=== PATIENT | female | born 2005 | race Caucasian/White ===

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

== ENCOUNTER → 2023-01-14 | Outpatient (CLI) | payer MEDICAID, SELFPAY | END | disposition home or self-care (01) | DX: R00.2 Palpitations (principal) | CPT/HCPCS: 93225; 93226 ==

== ENCOUNTER 2023-01-20 16:20 | Emergency (ER) | payer MEDICAID, SELFPAY ==
[2023-01-20 16:21] VITALS: BP 137/88; PULSE 109; RESP 16; TEMP 36.7; O2SAT 100; BMI 46.7
--- NOTE | 2023-01-20 16:37 | EKG12_ITS ---
Test Reason : SYNCOPE Blood Pressure : / mmHG Vent. Rate : 079 BPM Atrial Rate : 079 BPM P-R Int : 158 ms QRS Dur : 088 ms QT Int : 352 ms P-R-T Axes : 056 069 059 degrees QTc Int : 403 ms Normal sinus rhythm with sinus arrhythmia Normal ECG Confirmed by LOPEZ MACHADO, KATHY ([id number]), state editor JESSICA SCOTT ([id number]) on 01/24/2023 8:42:32 AM Referred By: Confirmed By:JEFFREY MARROQUIN MD
--- NOTE | 2023-01-20 16:41 | EDS_ITS ---
HPI History of Present Illness Chief Complaint: Syncope Informant: patient Onset/Context/Timing Onset: Today Context: Sudden Onset Timing: Intermittent Quality: Lightheaded Location: Generalized Worsened by: Nothing Relieved by: Nothing Narrative Narrative: Patient presents with syncopal episode that occurred today. Patient states she was at work when this occurred. Patient states she was just walking when this occurred. Patient does not know how long she was out for. Patient states that when she woke up she called her coworker to help her up. Patient states she felt lightheaded prior to the syncopal episode. Patient also admits to some palpitations and heart racing. Patient states she was having some shortness of breath when this happened. Patient states she became nauseated but did not have any vomiting. Currently, patient admits to a headache. Patient states she did hit her head when she fell. Patient states she is feeling better at the present time. [facility] Medical History (Updated 01/20/23 @ 19:[address] Miguel Robles DO) Alcohol use Asthma Borderline personality disorder Bulimia nervosa, purging type Generalized anxiety disorder History of pain when walking Leg cramps Major depressive disorder, recurrent severe without psychotic features Marijuana use Migraine headache Non-smoker Restless legs Shortness of breath on exertion Visit for suture removal Wears glasses Home Medications propranolol 10 mg tablet 10 mg PO BID PRN Anxiety 07/09/22 [History Last Taken Unknown] desvenlafaxine succinate 25 mg tablet,extended release 24 hr (Pristiq) 50 mg PO QHS 10/25/22 [History Last Taken Unknown] oxycodone 5 mg tablet 5 - 10 mg (1 - 2 x 5 mg) PO Q6H PRN pain 5 days #30 tabs 11/01/22 [Rx Last Taken Unknown] Allergy/AdvReac Type Severity Reaction Status Date / Time bupropion [From Wellbutrin] Allergy Rash Verified 01/20/23 16:21 Family History Mother Hypertension Seizures Grandmother Breast cancer Cancer skin Surgical History (Updated 01/20/23 @ 17:[address] Miguel Robles DO) Hx of cholecystectomy Social History household members: none Smoking Status: Never smoker substance use type: marijuana ROS ROS ED Constitutional Constitutional ED: Denies chills or fever(s) Eyes Eyes: Denies blurry vision or change in vision ENT ENT ED: Denies rhinorrhea or sore throat Cardiovascular Cardiovascular: Reports palpitations and racing heartbeat; Denies chest pain Respiratory/Chest Respiratory/Chest: Reports dyspnea; Denies cough Gastrointestinal Gastrointestinal: Reports nausea; Denies vomiting Genitourinary Genitourinary ED: Denies dysuria or hematuria Musculoskeletal Musculoskeletal: Denies back pain or neck pain Integumentary Denies abscess or rash Neurologic Neurologic: Reports headache(s); Denies weakness Allergic/Immunologic Allergic/Immunologic ED: Denies mouth swelling or urticaria EXAM Physical Exam Const Vital Signs: 01/20/23 16:21 01/20/23 16:21 01/20/23 17:12 Temperature 98.0 F Temperature Source Temporal Pulse Rate 109 H Pulse Rate [Lying] 87 Pulse Rate [Sitting (for 1 minute prior to obtaining)] 93 Pulse Rate [Standing (for 1 minute prior to obtaining)] 93 Respiratory Rate 16 Respiratory Effort Normal Respiratory Pattern Normal Blood Pressure 137/88 H Blood Pressure [Lying] 130/73 H Blood Pressure [Sitting (for 1 minute prior to obtaining)] 141/75 H Blood Pressure [Standing (for 1 minute prior to obtaining)] 133/77 H Blood Pressure Mean 104 Blood Pressure Mean [Lying] 92 Blood Pressure Mean [Sitting (for 1 minute prior to obtaining)] 97 Blood Pressure Mean [Standing (for 1 minute prior to obtaining)] 95 Pulse Ox 100 Oxygen Delivery Method Room Air Positive well nourished, well developed and obese General Appearance ED: well developed and NAD Nutritional Appearance: obese HEENT Reports moist mucous membranes Neck supple and no JVD Resp normal respiratory effort and clear to auscultation bilaterally Cardio regular rate, regular rhythm and no murmurs GI normal to inspection, nondistended, normoactive bowel sounds and non-tender Palpation: soft Extremity normal to inspection General Extremety ED: Negative for edema or tenderness General Extremity: Negative for edema Neuro oriented x3, CN's II-XII intact bilaterally and no sensory deficits noted Sensorium / Orientation: alert Motor Exam: strength 5/5 throughout Psych mental status grossly normal Skin no rashes or lesions noted MDM MDM MDM Narrative Medical decision making narrative: Differential diagnosis includes cardiac dysrhythmia, cardiac ischemia, syncope, pneumonia, pneumothorax, ectopic , urinary tract infection, pulmonary embolism, electrolyte abnormality, anemia, and anxiety. EKG will be obtained to assess for cardiac dysrhythmia and cardiac ischemia. Chest x-ray will be obtained to assess for pneumonia and pneumothorax. CBC will be obtained to assess for leukocytosis and anemia. Basic metabolic profile will be obtained to assess for electrolyte abnormality and renal function. Urinalysis will be obtained to assess for urinary tract infection and hematuria. D-dimer will be obtained to assess for pulmonary embolism. Serum hCG will be obtained to assess for status. Lab Data Attestation: I reviewed the patient's lab results. Lab results narrative: CBC was reviewed and was within normal limits. Basic metabolic profile was reviewed and was within normal limits. Serum hCG was reviewed and was negative. Urinalysis was reviewed. There is no evidence of urinary tract infection or hematuria. Labs: Laboratory Results - last 24 hr 01/20/23 01/20/23 16:45 17:15 WBC 9.2 RBC 4.60 Hgb 13.1 Hct 39.1 MCV 85.0 MCH 28.5 MCHC 33.5 RDW Std Deviation 41.9 RDW Coeff of Dangelo 13.6 Plt Count 306 MPV 8.1 Immature Gran % (Auto) 0.200 Neut % (Auto) 63.0 Lymph % (Auto) 29.3 [place] % (Auto) 3.3 Eos % (Auto) 3.5 Baso % (Auto) 0.7 Absolute Neuts (auto) 5.8 Absolute Lymphs (auto) 2.70 Nucleated RBC % 0 D-Dimer Quant (PE/DVT) 0.39 Sodium 139 Potassium 3.7 Chloride 107 Carbon Dioxide 28.0 Anion Gap 4 L BUN 10 Creatinine 0.78 Estim Creat Clear Calc 95.96 Est GFR (MDRD) Af Amer 122 Est GFR (MDRD) Non-Af 101 BUN/Creatinine Ratio 12.9 Glucose 99 Calcium 9.1 Serum , Qual NEGATIVE Urine Color Yellow Urine Clarity Clear Urine pH 5.0 Ur Specific [place] 1.025 Urine Protein 30 H Urine Glucose (UA) Normal Urine Ketones 5 H Urine Occult Blood Negative Urine Nitrite Negative Urine Bilirubin 1 H Urine Urobilinogen 1 H Ur Leukocyte Esterase 25 H Urine RBC 0 SEEN Urine WBC 0-5 SEEN Ur Squamous Epith Cells 5-10 SEEN Urine Bacteria 0 SEEN Urine Mucus 0 SEEN Radiography Chest X-Ray - ED: 2 View, Read by ED Physician, Read by Radiologist and No Acute Disease Diagnostic Testing: Clinical Impression(s) from Imaging Studies Chest X-Ray 01/20/23 16:55 IMPRESSION: No radiographic evidence of acute cardiopulmonary disease. Electronically Signed: Nicolette Bauer MD at 17:22 EDT , PA and lateral chest x-ray was obtained. There are 2 views. On my independent interpretation, lung lizarraga are clear. There is normal cardiac silhouette. Bony thorax is normal. There is no acute process noted. Radiologist also interpreted the x-ray and agrees. EKG Initial EKG: Attestation: I personally reviewed and interpreted this EKG as follows: Interpretation: Sinus Rhythm (79) and No Acute Injury Pattern Comments: EKG was obtained. On my independent interpretation, it showed a normal sinus rhythm with a rate of 79. VT interval, QRS interval, and QTc intervals were all normal. [place] was normal. There are no acute ST or T wave changes. Prior EKG tracings: available for review Prior: Unchanged (11/01/2022) Treatment and Re-Evaluation :: Orthostatic vital signs were obtained and were within normal limits. Patient was feeling better on reevaluation. Patient was advised of her findings. Patient was instructed to follow-up with her primary care physician in 5 to 7 days. Patient understood and was agreeable with the plan. All questions were answered. Discharge Plan Triage Chief Complaint: Syncope ED Provider: Miguel Robles Dx/Rx/DC Orders Clinical Impression: Syncope, Anxiety Instructions: ED Fainting, Uncertain Cause Prescriptions: No Action propranolol 10 mg tablet 10 mg PO BID PRN (Reason: Anxiety) oxycodone 5 mg tablet 5 - 10 mg PO Q6H PRN (Reason: pain) 5 Days Qty: 30 0RF desvenlafaxine succinate [Pristiq] 25 mg Tablet Extended Release 24 Hr 50 mg PO QHS Primary Care Provider: [facility] Rukhsana Lopez [facility] - 5-7 Days Disposition Disposition: Home, Self Care
[2023-01-20 16:52] LABS: Absolute Neutrophil Count 5.8 X10^3/uL (2.0-7.7); Basophil# 0.06 X10^3/uL; Basophil% 0.7 % (0-1); Eosinophil# 0.32 X10^3/uL; Eosinophils% 3.5 % (0-5); Hematocrit 39.1 % (37-47); Hemoglobin 13.1 g/dL (12.0-15.0); Lymphocyte % 29.3 % (19-41); Mean Corp Hgb Conc 33.5 g/dL (32-36); Mean Corpuscular Hgb 28.5 pg (27.0-32.0); Mean Platelet Vol. 8.1 fl (6.2-12.0); Monocyte% 3.3 % (0-10); NRBC Flagged by Analyzer 0 % (0-5); Neutrophil # 5.81 X10^3/uL (2.7-7.7); Platelet Count 306 K/mm3 (150-450); RBC Distribution Width CV 13.6 % (11.6-14.6); RBC Distribution Width SD 41.9 fl (35.1-43.9); White Blood Count 9.2 K/mm3 (4.4-11.0)
--- NOTE | 2023-01-20 16:55 | RAD_ITS ---
INDICATION: Syncope EXAMINATION/TECHNIQUE: X-RAY - XR Chest 2 Views COMPARISON: 05/07/2022. FINDINGS: LINES/DEVICES: None. LUNGS: No consolidation, edema or effusion. No pneumothorax. MEDIASTINUM AND CARDIOVASCULAR STRUCTURES: Cardiac silhouette not enlarged. Central airways and mediastinal contour are unremarkable. BONES AND SOFT TISSUES: Unremarkable. RAD/Chest PA and Lateral IMPRESSION: No radiographic evidence of acute cardiopulmonary disease. Electronically Signed: Nicolette Bauer MD at 17:22 EDT Reading Location ID and State: [id number] / Tel , Service support ,
[2023-01-20 17:02] LABS: D-Dimer Quantitative (DVT/PE) 0.39 FEU/ug/m (0.27-0.49)
[2023-01-20 17:12] VITALS: BP 130/73; BP 133/77; BP 141/75; PULSE 87; PULSE 93
[2023-01-20 17:21] LABS: Anion Gap 4 (5-15); BUN 10 mg/dL (7-18); BUN/Creat Ratio 12.9 RATIO (10-20); Calcium,Total 9.1 mg/dL (8.5-10.1); Chloride 107 mmol/L (98-107); Creatinine, Serum 0.78 mg/dL (0.55-1.02); EST Glomerular Filtration Rate 101 mL/min (>60); Est Glom Filt Rate - Afr Amer 122 mL/min (>60); Estimated Creatinine Clearance 95.96 ml/min; Glucose 99 mg/dL (74-106); Potassium 3.7 mmol/L (3.5-5.1); Sodium Level 139 mmol/L (136-145)
[2023-01-20 17:22] LABS: Internal QC Validated? YES +Cl - CLEAR BKGD; Pregnancy, Serum, hCG Quali. NEGATIVE Negative
[2023-01-20 17:52] LABS: Bacteria 0 SEEN /hpf (None Seen); Mucous, Urine 0 SEEN /hpf (<or=2+); Red Blood Cells-Urine 0 SEEN /hpf (0-5)
[2023-01-20 17:57] LABS: Color, Urine Yellow (Yellow); Glucose, Dipstick Normal (Normal); Ketone-Dipstick 5 mg/dl (Negative); Leukocyte Esterase-Dipstick 25 /ul (Negative); Nitrite-Dipstick Negative (Negative); Occult Blood-Urine Negative /ul (Negative); Protein-Dipstick 30 mg/dl (Negative); Specific Gravity, Urine 1.025 (1.002-1.030); Urine Clarity Clear (Clear); Urine Urobilinogen 1 mg/dl (Normal)
[2023-01-20 18:01] LABS: Urine Bilirubin Dipstick 1 mg/dL (Negative)
[2023-01-20 18:09] LABS: Squamous Epithelial Cells - UA 5-10 SEEN /hpf (5-10); White Blood Cells 0-5 SEEN /hpf (0-5)
[2023-01-20 19:59] VITALS: BP 133/77; PULSE 99
== END 2023-01-20 20:00 | disposition home or self-care (01) ==
PROVIDERS: Emergency Provider Emergency Medicine; Visit Provider Emergency Medicine
DX: R55 Syncope and collapse (principal); F41.9 Anxiety disorder, unspecified; Z79.899 Other long term (current) drug therapy
CPT/HCPCS: 71046; 80048; 81001; 84703; 85025; 85379; 93005; 99285; A4216

== ENCOUNTER → 2023-01-23 | Outpatient (CLI) | payer MEDICAID, SELFPAY ==
[2023-01-23 09:38] LABS: Anion Gap 3 (5-15); BUN 8 mg/dL (7-18); Calcium,Total 8.6 mg/dL (8.5-10.1); Chloride 111 mmol/L (98-107); Creatinine, Serum 0.73 mg/dL (0.55-1.02); EST Glomerular Filtration Rate 109 mL/min (>60); Est Glom Filt Rate - Afr Amer 132 mL/min (>60); Glucose 89 mg/dL (74-106); Magnesium 2.1 mg/dL (1.6-2.6); Sodium Level 142 mmol/L (136-145); Thyroid Stim Hormone (TSH) 1.94 uIU/mL (0.358-3.74)
== END | disposition home or self-care (01) ==
PROVIDERS: Referring Provider Nurse Practitioner Family; Visit Provider Nurse Practitioner Family
DX: I48.0 Paroxysmal atrial fibrillation (principal)
CPT/HCPCS: 36415; 80048; 83735; 84443

== ENCOUNTER 2023-01-26 17:46 | Emergency (ER) | payer MEDICAID, SELFPAY ==
[2023-01-26 17:47] VITALS: BP 158/95; PULSE 115; RESP 22; TEMP 36.2; O2SAT 98; BMI 47.3
[2023-01-26 17:54] VITALS: BP 140/77; PULSE 104; RESP 17; O2SAT 97
--- NOTE | 2023-01-26 18:03 | EKG12_ITS ---
Test Reason : CP Blood Pressure : / mmHG Vent. Rate : 090 BPM Atrial Rate : 090 BPM P-R Int : 164 ms QRS Dur : 090 ms QT Int : 342 ms P-R-T Axes : 040 057 048 degrees QTc Int : 418 ms Normal sinus rhythm with sinus arrhythmia Normal ECG Confirmed by IRENE MACHADO, GIRMA ([id number]), publication editor JESSICA SCOTT ([id number]) on 01/28/2023 1:23:32 PM Referred By: Confirmed By:GIRMA BONILLA MD
--- NOTE | 2023-01-26 18:05 | EDS_ITS ---
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 The tightness went away and now her chest just feels weird. She states over the last 2 months she has had been having issues with palpitations and tachycardia. She was seen at the [facility] and had a 48-hour Holter monitor that showed episodes of tachycardia and brief episode of A-fib. 3 days ago she started aspirin 81 mg and Toprol which she takes every morning. She is scheduled to see a welding machine operator arc in February. She denies shortness of breath or cough or upper respiratory symptoms. No fever or chills. PFSH <MONICA Jacinto - Last Filed: 01/26/23 18:56> [facility] Medical History (Updated 01/26/23 @ 18:[address] Erin Russ DO) Alcohol use Asthma Borderline personality disorder Bulimia nervosa, purging type Generalized anxiety disorder History of pain when walking Leg cramps Major depressive disorder, recurrent severe without psychotic features Marijuana use Migraine headache Non-smoker Restless legs Shortness of breath on exertion Visit for suture removal Wears glasses Home Medications propranolol 10 mg tablet 10 mg PO BID PRN Anxiety 07/09/22 [History Last Taken Unknown] desvenlafaxine succinate 25 mg tablet,extended release 24 hr (Pristiq) 50 mg PO QHS 10/25/22 [History Last Taken Unknown] oxycodone 5 mg tablet 5 - 10 mg (1 - 2 x 5 mg) PO Q6H PRN pain 5 days #30 tabs 11/01/22 [Rx Last Taken Unknown] Allergy/AdvReac Type Severity Reaction Status Date / Time bupropion [From Wellbutrin] Allergy Rash Verified 01/20/23 16:21 Family History Mother Hypertension Seizures Grandmother Breast cancer Cancer skin Surgical History Hx of cholecystectomy Social History household members: none Smoking Status: Never smoker substance use type: marijuana ROS <MONICA Jacinto - Last Filed: 01/26/23 18:56> ROS ED ROS Narrative Constitutional: Negative for fever, chills, malaise. CVS: Positive for chest pain. Negative for palpitations, syncope. Respiratory: Negative for shortness of breath, cough, orthopnea. GI: Positive for nausea, vomiting. Negative for abdominal pain. EXAM <MONICA Jacinto - Last Filed: 01/26/23 18:56> Physical Exam Narrative Exam Narrative: CONST: Patient sitting in no acute distress. EYES: Normal inspection. NECK: Normal inspection. RESP: No respiratory distress, CTAB. CVS: Regular rate and rhythm around 95-100, no murmur, no gallop. ABD: Soft and nontender, no guarding or rebound, nondistended, no hepatosplenomegaly. SKIN: Color normal, no rash, warm, dry, intact. EXTREMITIES: Normal appearance, no pedal edema. NEURO: Oriented x4. PSYCH: Normal affect. Const Vital Signs: 01/26/23 17:47 01/26/23 17:54 01/26/23 19:00 Temperature 97.2 F L Temperature Source Temporal Pulse Rate 115 H 104 H 86 Respiratory Rate 22 H 17 16 Blood Pressure 158/95 H 140/77 H Blood Pressure Mean 116 98 Pulse Ox 98 97 95 Oxygen Delivery Method Room Air Room Air <Dr. Erin Russ, DO - Last Filed: 01/26/23 22:14> Physical Exam Const Vital Signs: 01/26/23 17:47 01/26/23 17:54 01/26/23 19:00 Temperature 97.2 F L Temperature Source Temporal Pulse Rate 115 H 104 H 86 Respiratory Rate 22 H 17 16 Blood Pressure 158/95 H 140/77 H Blood Pressure Mean 116 98 Pulse Ox 98 97 95 Oxygen Delivery Method Room Air Room Air MDM <MONICA Jacinto - Last Filed: 01/26/23 18:56> MDM MDM Narrative Medical decision making narrative: Patient had brief episode of chest tightness and vomited once. She feels anxious. She appears well and nontoxic. Heart rate ranges from 95-115 with otherwise normal vital signs. She does look anxious and slightly shaky on exam with history of anxiety so I ordered Ativan. Her heart sounds regular with no murmurs. Lungs clear. Overall exam benign. She had recent significant work-up on 02/20 with normal CBC, BMP, D-dimer and negative test so I do not think these need repeated. EKG here shows normal sinus rhythm at 90 bpm with normal intervals and no ischemic changes. TSH and troponin are WNL and CXR shows no acute process. I ordered Ativan and I think she has ACS, PE, or any acute life-threatening process. I recommended follow-up with her PCP and the welding machine operator arc as scheduled in February. Return for new or worsening symptoms. Differential: Anxiety, myocarditis, palpitations/arrhythmia among others External records reviewed: Blood work from ED visit on 01/20/2023 shows normal CBC, BMP, D-dimer, and negative test. I have personally performed a face to face assessment of the patient and have reviewed the SILVIO Note. I performed a substantive portion of the visit including all aspects of the following. My mares findings include: History is [patient presents with left-sided chest pain that started earlier today. She was at work and stood up and felt pressure in her chest that can radiate across her left upper chest into her shoulder. She did have nausea and vomited once. She feels anxious. She has been seen here recently for complaint of syncope and had significant work-up on February 20 including a D-dimer that was normal and basic lab work. No significant family history of heart disease. Patient also recently wore Holter monitor and it was noted that she had an episode of A-fib and some tachycardia. Patient was started on toprol. She denies recent travel and she states that she had her gallbladder out a few months ago.] Exam is [HEENT-PERRLA, EOMI. Cranial nerves II through XII grossly intact. TMs clear. Mucous membranes moist. No adenopathy. Cardiovascular-regular rate and rhythm without murmur or ectopy Lungs-clear to auscultation, chest wall stable without crepitus or subcu emphysema Abdomen-normoactive bowel sounds, soft, nontender, no rebound or rigidity, no peritoneal signs. Extremities-intact ?4, normal range of motion, normal pulses, atraumatic] Medical Decison Making [patient presents with chest pain that started today. Very low risk factors for coronary artery disease given her age and no significant risk factors otherwise. EKG obtained showed sinus rhythm with no acute ST segment changes. Troponin was normal. She had a D-dimer recently therefore this was not repeated as I do not feel her chest pain is related to PE. Suspect more likely this is anxiety. She did receive a milligram of Ativan in the department. Chest x-ray 1 view was unremarkable.] Other additions or changes: [None] Lab Data Attestation: I reviewed the patient's lab results. Labs: Laboratory Results - last 24 hr 01/26/23 18:05 Troponin I High Sens < 3 L TSH 1.40 Radiography Diagnostic Testing: Clinical Impression(s) from Imaging Studies Chest X-Ray 01/26/23 18:15 IMPRESSION: Normal x-ray examination of the chest. Electronically Signed: Trav Severino MD at 18:29 EDT , ED attending interpretation of 2-view chest x-ray shows normal heart size, no acute infiltrate, edema, or effusion. EKG Initial EKG: Attestation: I personally reviewed and interpreted this EKG as follows: Interpretation: Sinus Rhythm and No Acute Injury Pattern Comments: ED attending interpretation is normal sinus rhythm with sinus arrhythmia at 90 bpm, no ectopy or ischemic changes, normal intervals <Dr. Erin Russ, DO - Last Filed: 01/26/23 22:14> [facility] Narrative Medical decision making narrative: Patient had brief episode of chest tightness and vomited once. She feels anxious. She appears well and nontoxic. Heart rate ranges from 95-115 with otherwise normal vital signs. She does look anxious and slightly shaky on exam with history of anxiety so I ordered Ativan. Her heart sounds regular with no murmurs. Lungs clear. Overall exam benign. She had recent significant work-up on 02/20 with normal CBC, BMP, D-dimer and negative test so I do not think these need repeated. EKG here shows normal sinus rhythm at 90 bpm with normal intervals and no ischemic changes. TSH is WNL. Since her troponin has never been checked this was ordered and is Differential: Anxiety, myocarditis, palpitations/arrhythmia among others External records reviewed: Blood work from ED visit on 01/20/2023 shows normal CBC, BMP, D-dimer, and negative test. I have personally performed a face to face assessment of the patient and have reviewed the SILVIO Note. I performed a substantive portion of the visit including all aspects of the following. My mares findings include: History is [patient presents with left-sided chest pain that started earlier today. She was at work and stood up and felt pressure in her chest that can radiate across her left upper chest into her shoulder. She did have nausea and vomited once. She feels anxious. She has been seen here recently for complaint of syncope and had significant work-up on February 20 including a D-dimer that was normal and basic lab work. No significant family history of heart disease. Patient also recently wore Holter monitor and it was noted that she had an episode of A-fib and some tachycardia. Patient was started on toprol. She denies recent travel and she states that she had her gallbladder out a few months ago.] Exam is [HEENT-PERRLA, EOMI. Cranial nerves II through XII grossly intact. TMs clear. Mucous membranes moist. No adenopathy. Cardiovascular-regular rate and rhythm without murmur or ectopy Lungs-clear to auscultation, chest wall stable without crepitus or subcu emphysema Abdomen-normoactive bowel sounds, soft, nontender, no rebound or rigidity, no peritoneal signs. Extremities-intact ?4, normal range of motion, normal pulses, atraumatic] Medical Decison Making [patient presents with chest pain that started today. Very low risk factors for coronary artery disease given her age and no significant risk factors otherwise. EKG obtained showed sinus rhythm with no acute ST segment changes. Troponin was normal. She had a D-dimer recently therefore this was not repeated as I do not feel her chest pain is related to PE. Suspect more likely this is anxiety. She did receive a milligram of Ativan in the department. Chest x-ray 1 view was unremarkable.] Other additions or changes: [None] Lab Data Labs: Laboratory Results - last 24 hr 01/26/23 18:05 Troponin I High Sens < 3 L TSH 1.40 Radiography Diagnostic Testing: Clinical Impression(s) from Imaging Studies Chest X-Ray 01/26/23 18:15 IMPRESSION: Normal x-ray examination of the chest. Electronically Signed: Trav Severino MD at 18:29 EDT , Discharge Plan Triage Chief Complaint: Chest Pain ED Midlevel Provider: Karen Mayes ED Provider: Erin Russ Dx/Rx/DC Orders Clinical Impression: Anxiety, Atypical chest pain, Chest pain Instructions: ED Anxiety Reaction, ED Chest Pain, Noncardiac, ED Chest Pain, Uncertain Cause Prescriptions: No Action propranolol 10 mg tablet 10 mg PO BID PRN (Reason: Anxiety) oxycodone 5 mg tablet 5 - 10 mg PO Q6H PRN (Reason: pain) 5 Days Qty: 30 0RF desvenlafaxine succinate [Pristiq] 25 mg Tablet Extended Release 24 Hr 50 mg PO QHS Primary Care Provider: [facility] Rukhsana Lopez Referrals: [facility] Rukhsana Lopez [Primary Care Provider] - Activity Restrictions/Additional Instructions: Your thyroid levels and heart enzymes today looked normal. Your heart is in a normal sinus rhythm here. I recommend following up with the primary care clinic and welding machine operator arc. Disposition Disposition: Home, Self Care Discharge Date/Time: 01/26/23 19:01
[2023-01-26] MEDS: LORazepam 0.5 MG Tablet PO (18:11)
--- NOTE | 2023-01-26 18:15 | RAD_ITS ---
STUDY: X-RAY CHEST REASON FOR EXAM: Female, 18 years old. chest pain TECHNIQUE: PA and lateral views of the chest. COMPARISON: 01/20/2023 FINDINGS: The lungs are clear and expanded. There is no demonstrated pleural abnormality. Normal size heart. Normal mediastinum and kimmie. Normal visualized pulmonary arteries. Normal visualized aortic arch and descending thoracic aorta. Normal visualized thoracic spine. Normal visualized ribs, clavicles, and shoulders. There is no demonstrated abnormality of the visualized soft tissue structures of the upper abdomen. RAD/Chest PA and Lateral IMPRESSION: Normal x-ray examination of the chest. Electronically Signed: Trav Severino MD at 18:29 EDT ,
[2023-01-26 18:49] LABS: Troponin-I HS < 3 pg/mL (3.0-54.0)
[2023-01-26 19:00] VITALS: PULSE 86; RESP 16; O2SAT 95
== END 2023-01-26 19:01 | disposition home or self-care (01) ==
PROVIDERS: Physician Assistant; Emergency Provider Emergency Medicine; Visit Provider Emergency Medicine
DX: F41.1 Generalized anxiety disorder (principal); R07.89 Other chest pain; Z79.899 Other long term (current) drug therapy
CPT/HCPCS: 71046; 84443; 84484; 93005; 99283; A4216

== ENCOUNTER → 2023-02-01 | Outpatient (CLI) | payer MEDICAID, SELFPAY ==
--- NOTE | 2023-02-01 09:38 | ECHOD_ITS ---
Reason For Study: Afib Procedure This was a 2D Doppler, Color Flow transthoracic echocardiogram. Exam performed in department. Left Ventricle Normal LV size. The estimated ejection fraction is 60 %. No evidence for diastolic dysfunction. No regional wall motion abnormalities noted. Right Ventricle Normal RV size. Normal systolic function. Atria Normal left atrium. Normal right atrium. No doppler evidence for ASD. Mitral Valve There is no mitral valve stenosis. No mitral valve insufficiency. Tricuspid Valve There is no tricuspid stenosis. Trivial tricuspid valve insufficiency. Unable to estimate RV systolic pressure due to insufficient tricuspid regurgitant envelope. Aortic Valve Trisinus/trileaflet aortic valve. There is no aortic stenosis. No aortic valve insufficiency. Pulmonic Valve There is no pulmonic valvular stenosis. No pulmonic valve insufficiency. Great Vessels Normal aortic root. Pericardium/Pleural No pericardial effusion. MMode/2D Measurements & Calculations LVIDd: 4.4 cm IVSd: 0.70 cm Ao root diam: 2.8 cm LVIDs: 2.7 cm LVPWd: 0.80 cm LA dimension: 3.8 cm FS: 38.2 % LAV(MOD-bp): 47.2 ml LVAd ap4: 30.1 cm2 SV(MOD-sp4): 57.1 ml LAV(MOD-bp) Indexed: 21.8 ml/m2 LVLd ap4: 8.2 cm LAV(MOD-sp2): 47.9 ml EDV(MOD-sp4): 89.4 ml LAV(MOD-sp4): 46.4 ml EDV(sp4-el): 93.8 ml LVAs ap4: 15.4 cm2 LVLs ap4: 6.1 cm ESV(MOD-sp4): 32.3 ml ESV(sp4-el): 32.8 ml EF(MOD-sp4): 63.9 % EF(sp4-el): 65.1 % SV(sp4-el): 61.1 ml LA A4 area: 16.4 cm2 RA A4 area: 13.7 cm2 Time Measurements MV dec time: 0.20 sec Doppler Measurements & Calculations MV E max damir: 121.3 cm/sec Lat Peak E' Damir: 23.9 cm/sec Med Peak E' Damir: 16.3 cm/sec MV A max damir: 75.5 cm/sec E/E' lat: 5.1 E/E' med: 7.4 MV E/A: 1.6 MV V2 max: 121.2 cm/sec MV P1/2t max damir: 121.8 cm/sec Ao V2 max: 138.4 cm/sec MV max P.9 mmHg MV P1/2t: 57.1 msec Ao max P.7 mmHg MV V2 mean: 69.6 cm/sec Ao V2 mean: 99.6 cm/sec MV mean P.3 mmHg MV dec slope: 624.9 cm/sec2 Ao mean P.4 mmHg MV V2 VTI: 26.1 cm MVA(P1/2t): 3.9 cm2 Ao V2 VTI: 29.5 cm AV (velocity ratio): 0.84 LV V1 max: 125.2 cm/sec PA V2 max: 129.2 cm/sec TR max damir: 172.6 cm/sec LV V1 max P.3 mmHg PA V2 mean: 92.1 cm/sec TR max P.9 mmHg LV V1 mean P.6 mmHg LV V1 mean: 90.7 cm/sec LV V1 VTI: 24.7 cm ECHO/Echo Complete Interpretation Summary The estimated ejection fraction is 60 %. No evidence for diastolic dysfunction. Ordering Physician: Nikki Grey Referring Physician: Nikki Grey Performed By: Arvin Dobbins RCS
== END | disposition home or self-care (01) ==
LOC: CVS 09:34
PROVIDERS: Referring Provider Nurse Practitioner Family; Visit Provider Nurse Practitioner Family
DX: I48.0 Paroxysmal atrial fibrillation (principal)
CPT/HCPCS: 93306

== ENCOUNTER 2023-02-13 18:01 | Emergency (ER) | payer MEDICAID, SELFPAY ==
[2023-02-13 18:10] VITALS: BP 146/84; PULSE 71; RESP 18; TEMP 36.6; O2SAT 98; BMI 47.5
--- NOTE | 2023-02-13 19:48 | CM.ED ---
Social Work SW met with patient and introduced self and role as [facility] SW. Patient seated on hospital bed and agreeable to speak with SW. SW engaged patient in conversation regarding recent events as well as connection to community resources. Patient reviewed recent concerns regarding her heart and feeling anxious. Patient reports no current engagement in counseling but [facility]. SW provided emotional support and reviewed [facility] resource list, community counseling agencies as well as coping skills for anxiety. Patient was receptive towards information; SW remains available if needs arise. Cyndy Cornejo DESIGN ANALYST, YINA
[2023-02-13 19:49] VITALS: BP 119/84; BP 120/81; BP 133/90; PULSE 62; PULSE 76; O2SAT 99
--- NOTE | 2023-02-13 20:08 | RAD_ITS ---
INDICATION: chest pain EXAMINATION/TECHNIQUE: X-RAY - XR Chest 1 View COMPARISON: January 26, 2023. FINDINGS: LINES/DEVICES: None. LUNGS: No consolidation, edema or effusion. No pneumothorax. MEDIASTINUM AND CARDIOVASCULAR STRUCTURES: Cardiac silhouette not enlarged. BONES AND SOFT TISSUES: Unremarkable. RAD/Chest 1 View (Portable) IMPRESSION: No radiographic evidence of acute cardiopulmonary disease. Electronically Signed: Aston Milton MD at 20:41 EDT ,
[2023-02-13 20:10] VITALS: BP 120/81; PULSE 62; RESP 15; O2SAT 98
[2023-02-13 20:14] LABS: Absolute Lymphocyte Count 3.67 X10^3/uL (0.83-4.51); Absolute Neutrophil Count 6.9 X10^3/uL (2.0-7.7); Basophil# 0.07 X10^3/uL; Basophil% 0.6 % (0-1); Eosinophil# 0.36 X10^3/uL; Eosinophils% 3.2 % (0-5); Hematocrit 40.1 % (37-47); Lymphocyte # 3.67 X10^3/ul (0.83-4.51); Lymphocyte % 32.2 % (19-41); Mean Corp Hgb Conc 32.4 g/dL (32-36); Mean Corpuscular Volume 86.2 fL (81-99); Mean Platelet Vol. 8.9 fl (6.2-12.0); Monocyte# 0.35 X10^3/uL; Monocyte% 3.1 % (0-10); NRBC Flagged by Analyzer 0 % (0-5); Neutrophil # 6.88 X10^3/uL (2.7-7.7); Neutrophil % 60.3 % (47-70); Platelet Count 339 K/mm3 (150-450); RBC Distribution Width CV 13.6 % (11.6-14.6); RBC Distribution Width SD 42.8 fl (35.1-43.9); Red Blood Count 4.65 M/mm3 (4.2-5.4); White Blood Count 11.4 K/mm3 (4.4-11.0)
[2023-02-13 20:37] LABS: Anion Gap 4 (5-15); BUN 15 mg/dL (7-18); Calcium,Total 9.1 mg/dL (8.5-10.1); Chloride 108 mmol/L (98-107); Creatinine, Serum 0.68 mg/dL (0.55-1.02); EST Glomerular Filtration Rate 117 mL/min (>60); Est Glom Filt Rate - Afr Amer 141 mL/min (>60); Estimated Creatinine Clearance 109.17 ml/min; Glucose 112 mg/dL (74-106); Potassium 3.7 mmol/L (3.5-5.1); Sodium Level 142 mmol/L (136-145); Troponin-I HS < 3 pg/mL (3.0-54.0)
[2023-02-13 21:17] VITALS: BP 125/92; PULSE 62; RESP 15; O2SAT 98
--- NOTE | 2023-02-13 22:11 | ED.VIS.CHEST ---
HPI History of Present Illness Chief Complaint: Anxiety Narrative Narrative: 18-year-old female presenting with chest pains. She states has had these on and off. She states she recently wore a Holter monitor about 3 weeks ago and was told she had A-fib. She is not anticoagulated. She is on metoprolol. She does admit to missing doses from time to time. She states she was at work today and felt her heart racing. Patient called EMS and was brought in for evaluation. Patient does have a history of anxiety as well. He does not think it is anxiety. She reports to me that she has a couple of episodes of syncope over the last month as well. No fevers, chills. Patient is short of breath. No nausea or vomiting. PFSH PFSH Medical History Alcohol use Asthma Borderline personality disorder Bulimia nervosa, purging type Generalized anxiety disorder History of pain when walking Leg cramps Major depressive disorder, recurrent severe without psychotic features Marijuana use Migraine headache Non-smoker Restless legs Shortness of breath on exertion Visit for suture removal Wears glasses Home Medications propranolol 10 mg tablet 10 mg PO BID PRN Anxiety 07/09/22 [History Last Taken Unknown] desvenlafaxine succinate 25 mg tablet,extended release 24 hr (Pristiq) 50 mg PO QHS 10/25/22 [History Last Taken Unknown] oxycodone 5 mg tablet 5 - 10 mg (1 - 2 x 5 mg) PO Q6H PRN pain 5 days #30 tabs 11/01/22 [Rx Last Taken Unknown] Allergy/AdvReac Type Severity Reaction Status Date / Time bupropion [From Wellbutrin] Allergy Rash Verified 02/13/23 18:12 Family History Mother Hypertension Seizures Grandmother Breast cancer Cancer skin Surgical History Hx of cholecystectomy Social History household members: none Smoking Status: Never smoker substance use type: marijuana ROS ROS ED Review of Systems ROS Unobtainable: Denies due to encephalopathy Constitutional Constitutional ED: Denies chills or fever(s) Eyes Eyes: Denies blurry vision or change in vision ENT ENT ED: Denies rhinorrhea Cardiovascular Cardiovascular: Reports chest pain, palpitations and racing heartbeat Respiratory/Chest Respiratory/Chest: Denies cough or dyspnea Gastrointestinal Gastrointestinal: Denies abdominal pain, nausea or vomiting Genitourinary Genitourinary ED: Denies dysuria Musculoskeletal Musculoskeletal: Denies arthralgias or myalgias Integumentary Denies abscess Neurologic Neurologic: Denies headache(s) or paresthesias Psychiatric Psychiatric: Reports anxiety EXAM Physical Exam Const Vital Signs: 02/13/23 18:10 02/13/23 19:49 02/13/23 19:49 Temperature 97.8 F Temperature Source Temporal Pulse Rate 71 Pulse Rate [Lying] 76 Pulse Rate [Sitting (for 1 minute prior to obtaining)] 62 Pulse Rate [Standing (for 1 minute prior to obtaining)] 62 Respiratory Rate 18 Blood Pressure 146/84 H Blood Pressure [Lying] 119/84 H Blood Pressure [Sitting (for 1 minute prior to obtaining)] 120/81 H Blood Pressure [Standing (for 1 minute prior to obtaining)] 133/90 H Blood Pressure Mean 104 Blood Pressure Mean [Lying] 95 Blood Pressure Mean [Sitting (for 1 minute prior to obtaining)] 94 Blood Pressure Mean [Standing (for 1 minute prior to obtaining)] 104 Pulse Ox 98 99 Oxygen Delivery Method Room Air Room Air 02/13/23 20:10 02/13/23 21:17 Temperature Temperature Source Pulse Rate 62 62 Pulse Rate [Lying] Pulse Rate [Sitting (for 1 minute prior to obtaining)] Pulse Rate [Standing (for 1 minute prior to obtaining)] Respiratory Rate 15 15 Blood Pressure 120/81 H 125/92 H Blood Pressure [Lying] Blood Pressure [Sitting (for 1 minute prior to obtaining)] Blood Pressure [Standing (for 1 minute prior to obtaining)] Blood Pressure Mean 94 Blood Pressure Mean [Lying] Blood Pressure Mean [Sitting (for 1 minute prior to obtaining)] Blood Pressure Mean [Standing (for 1 minute prior to obtaining)] Pulse Ox 98 98 Oxygen Delivery Method Room Air Positive well nourished General Appearance ED: NAD; Negative for pallor HEENT Reports moist mucous membranes normocephalic Eyes PERRL and EOMs intact bilaterally Chest Wall inspection of chest normal and palpation of chest normal Resp normal respiratory effort and clear to auscultation bilaterally Cardio regular rate and regular rhythm GI normal to inspection, nondistended, normoactive bowel sounds Neuro oriented x3 and CN's II-XII intact bilaterally Sensorium / Orientation: awake and alert Motor Exam: strength 5/5 throughout Psych mental status grossly normal Skin no rashes or lesions noted and no wounds General Skin Exam: Negative for jaundice or pallor Heart Score History: Slightly/Non-Suspicious ECG: Normal Age: </= 45 years Risk Factors: No Risk Factors Troponin: </= Normal Limit Score: 0 MDM MDM MDM Narrative Medical decision making narrative: She reports chest pain which has been on and off. She does not have a specific cardiac history other than she has concerned she is as A-fib. I reviewed her Holter monitor and there is no evidence of A-fib. She had some sinus tachycardia and some sinus bradycardia. CBC was obtained to assess white blood cell count, hemoglobin, platelets. BMP to assess renal function electrolytes. High-sensitivity troponin and EKG were obtained to rule out ischemic causes. Chest x-ray was obtained and shows no acute process. EKG sinus rhythm with a ventricular rate of 64 bpm without sign ischemic change or ectopy. Patient PERC negative so low suspicion for PE. Orthostatics were negative. At this point I reviewed the patient's findings with her counseled her she did not have A-fib and that she can still follow-up with the heart group for her tachycardia. I feel she stable for discharge and all questions were answered. She is discharged home in stable condition. Impression: 1. Chest pain 2. syncope Lab Data Labs: Laboratory Results - last 24 hr 02/13/23 20:00 WBC 11.4 H RBC 4.65 Hgb 13.0 Hct 40.1 MCV 86.2 MCH 28.0 MCHC 32.4 RDW Std Deviation 42.8 RDW Coeff of Dangelo 13.6 Plt Count 339 MPV 8.9 Immature Gran % (Auto) 0.600 Neut % (Auto) 60.3 Lymph % (Auto) 32.2 Rolette % (Auto) 3.1 Eos % (Auto) 3.2 Baso % (Auto) 0.6 Absolute Neuts (auto) 6.9 Absolute Lymphs (auto) 3.67 Nucleated RBC % 0 Sodium 142 Potassium 3.7 Chloride 108 H Carbon Dioxide 30.0 Anion Gap 4 L BUN 15 Creatinine 0.68 Estim Creat Clear Calc 109.17 Est GFR (MDRD) Af Amer 141 Est GFR (MDRD) Non-Af 117 BUN/Creatinine Ratio 22.0 H Glucose 112 H Calcium 9.1 Troponin I High Sens < 3 L Radiography Diagnostic Testing: Clinical Impression(s) from Imaging Studies Chest X-Ray 02/13/23 20:08 IMPRESSION: No radiographic evidence of acute cardiopulmonary disease. Electronically Signed: Aston Milton MD at 20:41 EDT , Discharge Plan Triage Chief Complaint: Anxiety ED Provider: Marshall Garza Dx/Rx/DC Orders Instructions: ED Chest Pain, Noncardiac, ED Tachycardia: PAT, ED Fainting, Uncertain Cause Prescriptions: No Action propranolol 10 mg tablet 10 mg PO BID PRN (Reason: Anxiety) oxycodone 5 mg tablet 5 - 10 mg PO Q6H PRN (Reason: pain) 5 Days Qty: 30 0RF desvenlafaxine succinate [Pristiq] 25 mg Tablet Extended Release 24 Hr 50 mg PO QHS [facility] - Disposition Disposition: Home, Self Care Discharge Date/Time: 02/13/23 21:29
== END 2023-02-13 21:29 | disposition home or self-care (01) ==
PROVIDERS: Emergency Provider Student in an Organized Health Care Education/Training Program; Visit Provider Student in an Organized Health Care Education/Training Program
DX: R07.9 Chest pain, unspecified (principal); R55 Syncope and collapse; R00.0 Tachycardia, unspecified
CPT/HCPCS: 71045; 80048; 84484; 85025; 93005; 99285; A4216

== ENCOUNTER 2023-04-19 12:22 | Emergency (ER) | payer MEDICAID, SELFPAY ==
--- NOTE | 2023-04-19 | US_ITS ---
STUDY: FIRST TRIMESTER OBSTETRICAL ULTRASOUND REASON FOR EXAM: Female, 18 years old Evaluate for ectopic LMP: Unknown. TECHNIQUE: Transabdominal TECHNICAL QUALITY: Adequate. PRIOR ULTRASOUND: OB ultrasound dated April 17, 2023 FINDINGS: There is no demonstrated intrauterine gestational sac. There is no demonstrated yolk sac. The placenta is non-visualized. There is no demonstrated embryo ( pole). The uterus measures 9.2 x 5.9 x 4.5 cm. There is no demonstrated uterine fibroid. The cervix is closed. The endometrial echo is 1.9 cm. The right ovary measures 3.9 x 3.0 x 3.0 cm. A 1.9 x 2.1 cm simple right ovarian cyst is present. Right ovarian corpus luteum also noted. Correlate with beta hCG levels and follow-up ultrasounds as needed. Several images obtained through the right adnexa reveal 2.8 x 2.3 cm focus of heterogeneous soft tissue, but it is not clear if this represents bile and ovarian/adnexal structures versus a separate entity such as an adnexal or ectopic mass. This is only seen on a few images and is not definitive. The left ovary measures 2.6 x 2.0 x 1.2 cm. There is no left ovarian cyst. A tubular shaped fluid density is seen in the left adnexa either representing a dilated fallopian tube or a small amount of free fluid of the left cul-de-sac between the 2 structures. There is no visualized left adnexal mass or complex lesion. US/Transvaginal w/Preg US IMPRESSION: 1. No demonstrated IUP. 2. Several images obtained through the right adnexa reveal 2.8 x 2.3 cm focus of heterogeneous soft tissue, but it is not clear if this represents bile and ovarian/adnexal structures versus a separate entity such as an adnexal or ectopic mass. This is only seen on a few images and is not definitive. 3. A tubular shaped fluid density is seen in the left adnexa either representing a dilated fallopian tube or a small amount of free fluid of the left cul-de-sac between the 2 structures 4. Correlate with beta hCG levels and follow up with ultrasound as needed. Electronically Signed: Luis Mckenna MD at 16:02 EDT ,
[2023-04-19 12:23] VITALS: BP 183/99; PULSE 140; RESP 18; TEMP 37.1; O2SAT 99; BMI 48.5
--- NOTE | 2023-04-19 12:55 | ED.VIS.FEGU ---
HPI <Dr. Niko Smalls MD - Last Filed: 04/21/23 14:47> HPI - Female History of Present Illness Chief Complaint: Detail of Chief Complaint: Severe lower cramping abdominal pain Informant: patient Pain Pain: Positive for Pelvic Pain and Vaginal Pain Onset: Days Context: Sudden Onset Timing: Intermittent Quality: Positive for Cramping Location: RLQ and LLQ Current Severity: Severe Maximum Severity: Severe Worsened by: - (Nothing specific) Relieved by: - (Nothing) Bleeding Issue: Negative for Passing clots or Passing tissue Associated Symptoms Associated Symptoms: Positive for Frequency and Missed Period; Negative for Dysuria, Urgency or Hematuria Last known menstrual period: 5 to 6 weeks ago Test: Positive (2 days ago quantitative hCG was 203 at [facility]) Sexually: Positive for Active Control: No control P: 0 Narrative Narrative: Patient is a 18-year-old who was seen 2 days ago at [facility] and diagnosed with possible ectopic versus early versus threatened AB. Patient presents because of severe lower abdominal/adnexal pain that is bilateral. She reports lightheadedness. She presently denies vaginal bleeding. She does not know her blood type. She has no history of ovarian cyst. There is no history of endometriosis. There is no history of STI. She does endorse frequency otherwise no urinary she does not know her blood type. Records from outside facility were obtained. Quantitative hCG 2 days ago was 203. Will obtain hCG and compare. Patient has O+ blood per review of outside records as well. She does have history of anxiety and depression. There also is a history of cholelithiasis. Prior similar symptoms: Yes Recent Illness/Hospitalization: Yes [facility] <Dr. Niko Smalls MD - Last Filed: 04/21/23 14:47> [facility] Medical History Alcohol use Asthma Borderline personality disorder Bulimia nervosa, purging type Generalized anxiety disorder History of pain when walking Leg cramps Major depressive disorder, recurrent severe without psychotic features Marijuana use Migraine headache Non-smoker Palpitations Restless legs Shortness of breath on exertion Visit for suture removal Wears glasses Home Medications fluoxetine 40 mg capsule 40 mg PO DAILY 03/15/23 [History Last Taken Unknown] aripiprazole 10 mg tablet (Abilify) 20 mg PO DAILY 03/27/23 [History Last Taken Unknown] hydroxyzine HCl 25 mg tablet 25 mg PO TID PRN anxiety 03/27/23 [History Last Taken Unknown] lorazepam 1 mg tablet (Ativan) 1 mg PO TID PRN PRN Panic attacks 03/27/23 [History Last Taken Unknown] metoprolol succinate 50 mg tablet,extended release 24 hr (Toprol XL) 50 mg PO DAILY #90 tabs 03/27/23 [Rx Last Taken Unknown] amoxicillin 875 mg-potassium clavulanate 125 mg tablet 1 tab PO Q12H 04/19/23 [History Last Taken Unknown] Allergy/AdvReac Type Severity Reaction Status Date / Time bupropion [From Wellbutrin] Allergy Rash Verified 04/19/23 12:26 Family History Grandmother Breast cancer Cancer skin Mother Hypertension Seizures Surgical History Hx of cholecystectomy Social History household members: none Smoking Status: Never smoker substance use type: marijuana ROS <Dr. Niko Smalls MD - Last Filed: 04/21/23 14:47> ROS ED Constitutional Constitutional ED: Denies chills, fever(s) or subjective Eyes Eyes: Denies blurry vision, change in vision or diplopia ENT ENT ED: Denies ear pain, rhinorrhea or sore throat Cardiovascular Cardiovascular: Denies chest pain or palpitations Respiratory/Chest Respiratory/Chest: Denies cough, dyspnea or dyspnea on exertion Gastrointestinal Gastrointestinal: Reports abdominal pain; Denies constipation, nausea or vomiting Genitourinary Genitourinary ED: Reports urinary frequency; Denies dysuria or hematuria Musculoskeletal Musculoskeletal: Denies arthralgias, myalgias or neck pain Integumentary Denies abscess, Abrasions or rash Neurologic Neurologic: Denies headache(s), paresthesias or weakness Psychiatric Psychiatric: Reports anxiety Hematologic/Lymphatic Hematologic/Lymphatic: Denies easy bleeding or easy bruising EXAM <Dr. Niko Smalls MD - Last Filed: 04/21/23 14:47> Physical Exam Const Vital Signs: 04/19/23 12:23 04/19/23 13:30 04/19/23 16:00 Temperature 98.8 F Temperature Source Temporal Pulse Rate 140 H 99 92 Respiratory Rate 18 16 16 Blood Pressure 183/99 H 151/88 H 127/93 H Blood Pressure Mean 127 109 104 Pulse Ox 99 98 98 Oxygen Delivery Method Room Air Room Air 04/19/23 17:20 Temperature Temperature Source Pulse Rate 93 Respiratory Rate 16 Blood Pressure 143/85 H Blood Pressure Mean 104 Pulse Ox 98 Oxygen Delivery Method Room Air Positive well nourished, well developed and obese Constitutional Narrative: Patient is crying. She appears uncomfortable. General Appearance ED: well developed and pallor; Negative for odor of alcohol detected Nutritional Appearance: obese HEENT Reports TM's clear and moist mucous membranes Tympanic Membrane ED: Yes TM's clear Eyes EOMs intact bilaterally General Eye ED: Negative for pale conjunctiva or scleral icterus Neck no lymphadenopathy, supple and no JVD Resp normal respiratory effort and clear to auscultation bilaterally Cardio regular rhythm, S1 normal heart sound, no murmurs and no JVD Rate: tachycardic GI normal to inspection, nondistended, normoactive bowel sounds, soft to palpation, non-distended and no masses; Negative for non-tender Auscultation: hypoactive bowel sounds Palpation: tender LLQ and RLQ; Negative for guarding, rigid, hepatomegaly or splenomegaly Back/Spine no CVA tenderness Extremity normal to inspection Neuro oriented x3, CN's II-XII intact bilaterally and no sensory deficits noted Sensorium / Orientation: alert Motor Exam: strength 5/5 throughout Psych Mood & Affect: anxious and tearful Skin no rashes or lesions noted and no wounds General Skin Exam: pallor; Negative for jaundice <Dr. Jono Gee, DO - Last Filed: 04/19/23 19:38> Physical Exam Const Vital Signs: 04/19/23 12:23 04/19/23 13:30 04/19/23 16:00 Temperature 98.8 F Temperature Source Temporal Pulse Rate 140 H 99 92 Respiratory Rate 18 16 16 Blood Pressure 183/99 H 151/88 H 127/93 H Blood Pressure Mean 127 109 104 Pulse Ox 99 98 98 Oxygen Delivery Method Room Air Room Air 04/19/23 17:20 Temperature Temperature Source Pulse Rate 93 Respiratory Rate 16 Blood Pressure 143/85 H Blood Pressure Mean 104 Pulse Ox 98 Oxygen Delivery Method Room Air MDM <Dr. Niko Smalls MD - Last Filed: 04/21/23 14:47> [facility] Narrative Medical decision making narrative: Differential diagnosis is ectopic , threatened AB, ovarian torsion versus anxiety. Repeat hCG was ordered and we will compare to 2 days ago. Ultrasound was obtained because the amount of pain to rule out ectopic. All of her blood test was intermittently canceled. The hCG was reordered. Lab Data Labs: Laboratory Results - last 24 hr 04/19/23 14:25 HCG, Quant 379 H Radiography Chest X-Ray - ED: 1 View and Read by ED Physician (Single view chest x-ray reveals chronic changes. There is no acute findings. Cardiac silhouette and size normal. Perihilar region normal. [place] structures unremarkable. This is independent reviewed interpreted by me) Diagnostic Testing: Clinical Impression(s) from Imaging Studies Obstetrics Ultrasound 04/19/23 00:00 IMPRESSION: 1. No demonstrated IUP. 2. Several images obtained through the right adnexa reveal 2.8 x 2.3 cm focus of heterogeneous soft tissue, but it is not clear if this represents bile and ovarian/adnexal structures versus a separate entity such as an adnexal or ectopic mass. This is only seen on a few images and is not definitive. 3. A tubular shaped fluid density is seen in the left adnexa either representing a dilated fallopian tube or a small amount of free fluid of the left cul-de-sac between the 2 structures 4. Correlate with beta hCG levels and follow up with ultrasound as needed. Electronically Signed: Luis Mckenna MD at 16:02 EDT Reading Location ID and State: [facility] / [place] , Service support , Treatment and Re-Evaluation Narrative: Patient's transvaginal ultrasound has been completed but not interpreted by radiologist. The quantitative hCG has been received by the lab but has not been resulted. Will transfer care to Dr. Kim to make disposition once quantitative hCG is known and ultrasound results are known. Patient does not have an DEPALLETIZER OPERATOR in the area. She will need referral to an DEPALLETIZER OPERATOR. Of note, Dr. Perez is on-call for DEPALLETIZER OPERATOR for patients without a doctor. <Dr. Jono Gee, DO - Last Filed: 04/19/23 19:38> [facility] Lab Data Labs: Laboratory Results - last 24 hr 04/19/23 14:25 HCG, Quant 379 H Radiography Diagnostic Testing: Clinical Impression(s) from Imaging Studies Obstetrics Ultrasound 04/19/23 00:00 IMPRESSION: 1. No demonstrated IUP. 2. Several images obtained through the right adnexa reveal 2.8 x 2.3 cm focus of heterogeneous soft tissue, but it is not clear if this represents bile and ovarian/adnexal structures versus a separate entity such as an adnexal or ectopic mass. This is only seen on a few images and is not definitive. 3. A tubular shaped fluid density is seen in the left adnexa either representing a dilated fallopian tube or a small amount of free fluid of the left cul-de-sac between the 2 structures 4. Correlate with beta hCG levels and follow up with ultrasound as needed. Electronically Signed: Luis Mckenna MD at 16:02 EDT Reading Location ID and State: [facility] / [place] , Service support , Treatment and Re-Evaluation Narrative: Patient's transvaginal ultrasound has been completed but not interpreted by radiologist. The quantitative hCG has been received by the lab but has not been resulted. Will transfer care to Dr. Kim to make disposition once quantitative hCG is known and ultrasound results are known. Patient does not have an DEPALLETIZER OPERATOR in the area. She will need referral to an DEPALLETIZER OPERATOR. Of note, Dr. Perez is on-call for DEPALLETIZER OPERATOR for patients without a doctor. Patient signed out to me by Dr. Smalls at 3 PM Signout was to follow-up on beta-hCG and ultrasound There were no acute events under my care. Patient was seen and examined. Abdomen was soft did have some mild lower abdominal tenderness. Labs and images reviewed: Beta-hCG was 379 (this is uptrending from 203 on prior study per Dr. Smalls's note) Ultrasound was concerning for right adnexal mass. Consulted DEPALLETIZER OPERATOR Dr. Shravan Perez she recommended evaluating if this was a desired with the patient. Dr. Perez did not feel the patient required emergent operative management given she is relatively comfortable had normal vital signs and did not have a definitive ectopic on ultrasound. She further stated if this was a desired the recommendation was to discharge with a close follow-up with her and a repeat quant in 2 days. If the is undesired her instructions were to give methotrexate at the appropriate dose. I had a discussion with the patient. She states this undesired . Offered methotrexate which she accepted. Risk benefits and expectant management were discussed including return precautions. 1 dose of IM methotrexate was given close DEPALLETIZER OPERATOR follow-up with Dr. Shravan Perez. Impression: 1. Ectopic 2. Right adnexal mass 3. Abdominal pain Disposition: Discharge home Discharge Plan Triage Chief Complaint: Other Complaint: Vag Bld, Preg ED Provider: Jono Gee Dx/Rx/DC Orders Clinical Impression: Anxiety, Ectopic , tubal Instructions: ED Methotrexate for Ectopic ... Prescriptions: No Action fluoxetine 40 mg capsule 40 mg PO DAILY aripiprazole [Abilify] 10 mg tablet 20 mg PO DAILY hydroxyzine HCl 25 mg tablet 25 mg PO TID PRN (Reason: anxiety) lorazepam [Ativan] 1 mg tablet 1 mg PO TID PRN PRN (Reason: Panic attacks) Patient Comments: As needed metoprolol succinate [Toprol XL] 50 mg tablet extended release 24 hr 50 mg PO DAILY Qty: 90 3RF amoxicillin-pot clavulanate 875-125 mg tablet 1 tab PO Q12H Patient Comments: TAKE 1 TABLET BY MOUTH TWICE DAILY FOR 10 DAYS Stand Alone Forms: ED Work / School Excuse [facility] Referrals: Aileen Perez MD [Med Staff - Active Staff] - Activity Restrictions/Additional Instructions: Thank you for trusting us with your care today! Please take Tylenol (2 pills, 650 mg), ibuprofen (2 pills, 400 mg) every 6 hours as needed for pain and fever control. Please return to the emergency department if your symptoms change or worsen. Specifically develop fever, worsening abdominal pain or white or yellow vaginal discharge. Please return if you have heavy bleeding which is characterized as soaking 1 pad every hour for 3 consecutive hours. Please follow with your DEPALLETIZER OPERATOR for further outpatient evaluation and management. Disposition Disposition: Home, Self Care Discharge Date/Time: 04/19/23 20:52
[2023-04-19 13:30] VITALS: BP 151/88; PULSE 99; RESP 16; O2SAT 98
[2023-04-19 16:00] VITALS: BP 127/93; PULSE 92; RESP 16; O2SAT 98
[2023-04-19 16:15] LABS: hCG Titer Quant., Serum 379 mIU/mL (1-3)
[2023-04-19 17:20] VITALS: BP 143/85; PULSE 93; RESP 16; O2SAT 98
[2023-04-19] MEDS: Acetaminophen 325 MG Tablet PO (18:52)
== END 2023-04-19 20:52 | disposition home or self-care (01) ==
PROVIDERS: Emergency Medicine; Emergency Provider Emergency Medicine; Visit Provider Emergency Medicine
DX: O00.109 Unspecified tubal pregnancy without intrauterine pregnancy (principal); O99.340 Other mental disorders complicating pregnancy, unspecified trimester; O99.324 Drug use complicating childbirth; F41.9 Anxiety disorder, unspecified; F12.90 Cannabis use, unspecified, uncomplicated; Z79.899 Other long term (current) drug therapy
CPT/HCPCS: 36415; 76817; 84702; 96374; 99282; J7030; A4216; J9250

== ENCOUNTER 2023-04-21 16:28 | Emergency (ER) | payer MEDICAID, SELFPAY ==
[2023-04-21 16:29] VITALS: BP 142/97; PULSE 143; RESP 18; TEMP 36.3; O2SAT 100; BMI 48.2
--- NOTE | 2023-04-21 17:51 | US_ITS ---
STUDY: FIRST TRIMESTER OBSTETRICAL ULTRASOUND REASON FOR EXAM: Female, 18 years old ectopic LMP: 03/13/2023 TECHNIQUE: Transvaginal TECHNICAL QUALITY: Adequate. PRIOR ULTRASOUND: 04/19/2023 FINDINGS: There is no demonstrated intrauterine gestational sac. The uterus measures 10 x 5 x 4 cm. There is no demonstrated uterine fibroid. The cervix is closed. The right ovary measures 3.5 x 2.2 x 2.2 cm. The right ovarian follicle is stable. There is no visualized right adnexal mass or complex lesion. The left ovary is not seen. Small anechoic tubular structure of the left adnexa is stable. There is minimal fluid in the cul de sac. US/Transvaginal w/Preg US IMPRESSION: 1. Right adnexal hypoechoic focus seen on prior exam is not identified. 2. No intrauterine . 3. Small tubular structure of the left adnexa is stable, still likely representing either fluid within the fallopian tube or fluid. Electronically Signed: August Garces MD ([place]) at 19:21 EDT ,
--- NOTE | 2023-04-21 17:53 | EX.ED.DYSGE1 ---
HPI History of Present Illness Chief Complaint: Abd Pain Narrative Narrative: Patient is a 18-year-old female who is presenting with increasing pain to the suprapubic area, right lower quadrant and right flank. Patient was just here on Saturday. Patient had lab work done, ultrasound and was noted patient had a right ectopic . Patient was given methotrexate. Patient was sent home, patient continues to have constant pain yesterday, but the pain is increased today. She has no vaginal bleeding. She has no fever or chills. No heavy lifting, twisting or turning. She does not have her gallbladder. Patient has no chest pain or shortness of breath. She is a G1, P1. No vaginal odors, discharge, or any other acute complaints. [facility] Medical History Alcohol use Asthma Borderline personality disorder Bulimia nervosa, purging type Generalized anxiety disorder History of pain when walking Leg cramps Major depressive disorder, recurrent severe without psychotic features Marijuana use Migraine headache Non-smoker Palpitations Restless legs Shortness of breath on exertion Visit for suture removal Wears glasses Home Medications fluoxetine 40 mg capsule 40 mg PO DAILY 03/15/23 [History Last Taken Unknown] aripiprazole 10 mg tablet (Abilify) 20 mg PO DAILY 03/27/23 [History Last Taken Unknown] hydroxyzine HCl 25 mg tablet 25 mg PO TID PRN anxiety 03/27/23 [History Last Taken Unknown] lorazepam 1 mg tablet (Ativan) 1 mg PO TID PRN PRN Panic attacks 03/27/23 [History Last Taken Unknown] metoprolol succinate 50 mg tablet,extended release 24 hr (Toprol XL) 50 mg PO DAILY #90 tabs 03/27/23 [Rx Last Taken Unknown] amoxicillin 875 mg-potassium clavulanate 125 mg tablet 1 tab PO Q12H 04/19/23 [History Last Taken Unknown] hydrocodone-acetaminophen 5-325mg 5mg-325mg 1 tab PO Q4H PRN PRN Pain 2 days #10 TABLETS 04/21/23 [Rx Last Taken Unknown] ondansetron 4 mg disintegrating tablet 4 mg PO Q8H PRN PRN Nausea #10 tabs 04/21/23 [Rx Last Taken Unknown] Allergy/AdvReac Type Severity Reaction Status Date / Time bupropion [From Wellbutrin] Allergy Rash Verified 04/21/23 16:29 Family History Grandmother Breast cancer Cancer skin Mother Hypertension Seizures Surgical History Hx of cholecystectomy Social History household members: none Smoking Status: Never smoker substance use type: marijuana ROS ROS ED ROS Narrative REVIEW OF SYSTEMS: Unless otherwise stated in this report the patient's positive and negative responses for review of systems for constitutional, eyes, ENT, cardiovascular, respiratory, gastrointestinal, neurological, , musculoskeletal, and integument systems and related systems to the presenting problem are either stated in the history of present illness or were not pertinent or were negative for the symptoms and/or complaints related to the presenting medical problem. EXAM Physical Exam Narrative Exam Narrative: Vital signs reviewed and patient is not hypoxic. General: The patient appears well and in no apparent distress. Patient is resting comfortably on cart. Not toxic, lethargic, or listless. Skin: Warm, dry, no pallor noted. There is no rash noted. Head: Normocephalic, atraumatic Eye: Normal conjunctiva, no drainage, EOMI. PERRL. Ears, Nose, Mouth, and Throat: oral mucosa is moist. Cardiovascular: Regular Rate and Rhythm, no murmurs, gallops, or rubs Respiratory: Patient is in no distress, no accessory muscle use, lungs are clear to auscultation, no wheezing, rales or rhonchi Back: non-tender, no CVA tenderness bilaterally to percussion. NO CTLS midline or paraspinal tenderness to palpation. GI: Soft, morbidly obese, moderate suprapubic tenderness to palpation, mild to moderate right lower quadrant tenderness palpation, mild right flank tenderness to palpation, no CVA tenderness bilateral, no left lower quadrant or left flank tenderness to palpation, no peritoneal signs, otherwise no tenderness to palpation, no masses appreciated. No rebound, guarding, or rigidity noted. Musculoskeletal: The patient has full range of motion of all extremities and joints with no difficulty. Patient has no motor, no sensory deficits. Neurological: A&O x4, normal speech, no focal neurological deficits. Psychiatric: Cooperative Const Vital Signs: 04/21/23 16:29 04/21/23 18:02 Temperature 97.3 F L Temperature Source Temporal Pulse Rate 143 H 104 H Respiratory Rate 18 16 Blood Pressure 142/97 H 138/73 H Blood Pressure Mean 112 94 Pulse Ox 100 97 Oxygen Delivery Method Room Air Room Air MDM MDM MDM Narrative Medical decision making narrative: After orders were placed, patient's MILLING/POLISHING OPERATOR was paged just to get them informed of the patient, the work-up and testing. IV, Dilaudid, Zofran, IV fluids lab work and ultrasound have been ordered. [address] Hernandez[address] She is on-call for MILLING/POLISHING OPERATOR. She is aware of slight elevation of hCG quant. She is aware of lab work, repeat ultrasound, and I will have a phone consultation with her again once the ultrasound is seen. 1901 I spoke to the MILLING/POLISHING OPERATOR on-call again for the second time, Dr. Hernandez. Very helpful, she reviewed the ultrasound herself. She denies any new acute findings, no enlarging of the , no significant mount of blood or fluid noted, no rupture. She recommended to give patient a second dose of methotrexate. She will see the patient in the office on Saturday and Saturday. Patient was sent home with Zofran and pain medication to use as needed. Patient was given injections of methotrexate by myself, nursing staff is not allowed to administer that. Patient tolerated administration without difficulty. See procedure note. Patient will call tomorrow to set up an appointment with the MILLING/POLISHING OPERATOR on Saturday and Saturday. Patient is very thankful for help, ultrasound not show anything and acute findings by radiology reading as well. Patient's beta-hCG has elevated a little bit which is expected to happen after methotrexate is given on Saturday per Dr. Hernandez. She reviewed patient's lab work today as well, and is aware of the hCG quant of 397 and today's lab value of 602 Procedure note: Performed by Dr. Kennedy Patient's bilateral anterior thighs were cleaned, prepped, draped in normal sterile fashion. They are clean with multiple alcohol swabs. Injections of methotrexate equal doses were given to each anterior thigh. Band-Aid was applied. Patient tolerated injections well at difficulty. No bleeding. Intramuscular injections were given. critical care time 35 minutes exclusive from separate billable procedures that were performed. The following was considered in the determination of critical care but not limited to the level of medical decision making, intensive cardiac and/or respiratory monitoring, frequent vital sign monitoring, evaluation of laboratory studies, evaluation of radiographic studies, oxygen monitoring, and constant monitoring and speaking to family at bedside Lab Data Attestation: I reviewed the patient's lab results. Labs: Laboratory Results - last 24 hr 04/21/23 04/21/23 16:45 19:00 WBC 10.5 RBC 4.63 Hgb 12.8 Hct 38.7 MCV 83.6 MCH 27.6 MCHC 33.1 RDW Std Deviation 42.0 RDW Coeff of Dangelo 13.9 Plt Count 393 MPV 8.8 Immature Gran % (Auto) 0.300 Neut % (Auto) 64.0 Lymph % (Auto) 29.6 [place] % (Auto) 3.0 Eos % (Auto) 2.6 Baso % (Auto) 0.5 Absolute Neuts (auto) 6.7 Absolute Lymphs (auto) 3.12 Nucleated RBC % 0 HCG, Quant 602 H Urine Color Yellow Urine Clarity Clear Urine pH 6.0 Ur Specific [place] 1.020 Urine Protein Negative Urine Glucose (UA) Normal Urine Ketones Negative Urine Occult Blood Negative Urine Nitrite Negative Urine Bilirubin Negative Urine Urobilinogen Normal Ur Leukocyte Esterase 100 H Urine RBC 0 SEEN Urine WBC 0-5 SEEN Ur Squamous Epith Cells 5-10 SEEN Urine Bacteria RARE Urine Mucus 0 SEEN Blood Type O POSITIVE Radiography Diagnostic Testing: Clinical Impression(s) from Imaging Studies Obstetrics Ultrasound 04/21/23 17:51 IMPRESSION: 1. Right adnexal hypoechoic focus seen on prior exam is not identified. 2. No intrauterine . 3. Small tubular structure of the left adnexa is stable, still likely representing either fluid within the fallopian tube or fluid. Electronically Signed: August Garces MD (Brooks) at 19:21 EDT Reading Location ID and State: [facility] / [place] , Service support , Discharge Plan Triage Chief Complaint: Abd Pain ED Provider: Siva Kennedy Dx/Rx/DC Orders Clinical Impression: Ectopic , tubal Instructions: Folic Acid (Folate) Supplements, ED Methotrexate for Ectopic ... Prescriptions: New hydrocodone-acetaminophen [hydrocodone-acetaminophen] 5-325 mg tablet 1 tab PO Q4H PRN PRN (Reason: Pain) 2 Days Qty: 10 0RF ondansetron [ondansetron] 4 mg tablet,disintegrating 4 mg PO Q8H PRN PRN (Reason: Nausea) Qty: 10 0RF No Action fluoxetine 40 mg capsule 40 mg PO DAILY aripiprazole [Abilify] 10 mg tablet 20 mg PO DAILY hydroxyzine HCl 25 mg tablet 25 mg PO TID PRN (Reason: anxiety) lorazepam [Ativan] 1 mg tablet 1 mg PO TID PRN PRN (Reason: Panic attacks) Patient Comments: As needed metoprolol succinate [Toprol XL] 50 mg tablet extended release 24 hr 50 mg PO DAILY Qty: 90 3RF amoxicillin-pot clavulanate 875-125 mg tablet 1 tab PO Q12H Patient Comments: TAKE 1 TABLET BY MOUTH TWICE DAILY FOR 10 DAYS Primary Care Provider: Nikki Grey NP Referrals: Elaina Nicolas DO [Med Staff - Active Staff] - Nikki Grey NP, SOFTWARE SPECIALIST-C [Primary Care Provider] - Activity Restrictions/Additional Instructions: Education on folic acid supplements were given to you. DO NOT take any folic acid supplements per Dr. Hernandez. Do not take your vitamins. Do not take any green leafy lettuce, no beef, nothing that contains folic acid. Dr Hernandez will see you in the office on Saturday and Saturday, call tomorrow for an appointment. Use nausea and pain medication as needed, increase fluids Disposition Disposition: Home, Self Care
[2023-04-21] MEDS: 0.9% Normal Saline (1000mL) 1,000 ML 1000 ML IV (18:00)
[2023-04-21] MEDS: HYDROmorphone 1 MG/ML Syringe IV (18:00)
[2023-04-21] MEDS: Ondansetron 4 MG/2 ML Vial IV (18:00)
[2023-04-21 18:02] VITALS: BP 138/73; PULSE 104; RESP 16; O2SAT 97
[2023-04-21 18:05] LABS: Absolute Lymphocyte Count 3.12 X10^3/uL (0.83-4.51); Absolute Neutrophil Count 6.7 X10^3/uL (2.0-7.7); Basophil# 0.05 X10^3/uL; Basophil% 0.5 % (0-1); Eosinophil# 0.27 X10^3/uL; Eosinophils% 2.6 % (0-5); Hematocrit 38.7 % (37-47); Hemoglobin 12.8 g/dL (12.0-15.0); Lymphocyte # 3.12 X10^3/ul (0.83-4.51); Lymphocyte % 29.6 % (19-41); Mean Corp Hgb Conc 33.1 g/dL (32-36); Mean Corpuscular Hgb 27.6 pg (27.0-32.0); Mean Corpuscular Volume 83.6 fL (81-99); Mean Platelet Vol. 8.8 fl (6.2-12.0); Monocyte# 0.32 X10^3/uL; NRBC Flagged by Analyzer 0 % (0-5); Neutrophil # 6.74 X10^3/uL (2.7-7.7); Platelet Count 393 K/mm3 (150-450); RBC Distribution Width CV 13.9 % (11.6-14.6); Red Blood Count 4.63 M/mm3 (4.2-5.4); White Blood Count 10.5 K/mm3 (4.4-11.0)
[2023-04-21 18:22] LABS: hCG Titer Quant., Serum 602 mIU/mL (1-3)
[2023-04-21 19:09] LABS: Mucous, Urine 0 SEEN /hpf (<or=2+); Red Blood Cells-Urine 0 SEEN /hpf (0-5)
[2023-04-21 19:12] LABS: Color, Urine Yellow (Yellow); Glucose, Dipstick Normal (Normal); Ketone-Dipstick Negative (Negative); Leukocyte Esterase-Dipstick 100 /ul (Negative); Nitrite-Dipstick Negative (Negative); Occult Blood-Urine Negative /ul (Negative); Protein-Dipstick Negative (Negative); Urine Bilirubin Dipstick Negative (Negative); Urine Clarity Clear (Clear); Urine Urobilinogen Normal (Normal)
[2023-04-21 19:15] LABS: Squamous Epithelial Cells - UA 5-10 SEEN /hpf (5-10); White Blood Cells 0-5 SEEN /hpf (0-5)
[2023-04-21 19:16] LABS: Bacteria RARE /hpf (None Seen)
--- NOTE | 2023-04-21 19:51 | ED.RN ---
METHOTREXATE GIVEN BY DR. KIRAN. 2 INJECTION SITES. 1 GIVEN IN RIGHT LATERAL VASTUS LATERALIS AND THE OTHER GIVEN IN THE LEFT VASTUS LATERALIS.
[2023-04-21 20:06] VITALS: BP 114/74
== END 2023-04-21 20:07 | disposition home or self-care (01) ==
PROVIDERS: Emergency Provider Emergency Medicine; PCP Nurse Practitioner Family; Visit Provider Emergency Medicine
DX: O00.109 Unspecified tubal pregnancy without intrauterine pregnancy (principal); F12.90 Cannabis use, unspecified, uncomplicated; O99.320 Drug use complicating pregnancy, unspecified trimester; Z79.899 Other long term (current) drug therapy
CPT/HCPCS: 76817; 81001; 84702; 85025; 86900; 86901; 96361; 96374; 96375; 99283; J7030; J2405; J9250

== ENCOUNTER 2023-04-23 14:03 | Day surgery (SDC) | payer MEDICAID, SELFPAY ==
--- NOTE | 2023-04-23 | EMB_PTH ---
PATIENT: SHEILA GARCIA [place] [facility] [place][id number] AGE/SX: 18/F ROOM: RE04/23/[address]: Dr. Janeth Low MD : 2005 BED: DIS: 04/23/2023 SPEC #: [id number] RECD: 04/23/23 18:15 STATUS: NARCISO REMalcolm #: [id number] ELIZABETH: 04/23/23 00:[address]: Janeth Low DEPT: SURGICAL PATHOLOGY RECD BY: Isai Fleming ENTERED: 04/24/23 10:17 SP TYPE: ENDOM BX/C SHAYY DR: Nikki Grey, JACKELIN Tissues: Endometrium, NOS Procedures: Surgery Specimen Level IV HEADER OPERATION: Diagnostic laparoscopy, Laparoscopic ovarian cystotomy PRE-OP DIAGNOSIS: Ectopic , tubal TISSUE SUBMITTED: Endometrial curettings MICROSCOPIC DIAGNOSIS Endometrial curettings: Late secretory endometrium with focal decidual changes. Fragments of benign ecto- and endocervical mucosa. See comment. YAHIR:bonita 04/25/2023 COMMENT Chorionic villi are not identified in the specimen. Clinical correlation and appropriate follow up are necessary. Case has been reviewed in consultation with Dr. Finn who concurs with the above diagnosis. IDC:AM MICROSCOPIC DESCRIPTION Slides are reviewed. GROSS DESCRIPTION Received in fixative is one container labeled with the patient's name and designated endometrial curettings. The specimen consists of multiple irregular fragments of richard-pink soft tissue mixed with blood clot that in aggregate measure 7.5 x 3.0 x 0.3 cm. The entire specimen is submitted in three cassettes. / YAHIR:bonita 04/24/2023 TC:5 CPT: 24246
--- NOTE | 2023-04-23 13:59 | HP.PCM_ITS ---
History and Physical Intake Vital Signs 04/21/2316:29 04/23/2313:15 Height 5 ft 3 in 5 ft 3 in Weight: 272 lb 8 oz BMI 48.2 BP 130/73 H Intake Visit Reasons: ED f/u ectopic see chart notes Salesforce Trainer Required: No Is patient in pain?: No Allergies bupropion [From Wellbutrin] Allergy (Verified 04/23/23 13:15) Rash Medications fluoxetine 40 mg capsule 40 mg PO DAILY 03/15/23 [History Confirmed 04/23/23] aripiprazole 10 mg tablet (Abilify) 20 mg PO DAILY 03/27/23 [History Confirmed 04/23/23] hydroxyzine HCl 25 mg tablet 25 mg PO TID PRN anxiety 03/27/23 [History Confirmed 04/23/23] lorazepam 1 mg tablet (Ativan) 1 mg PO TID PRN PRN Panic attacks 03/27/23 [History Confirmed 04/23/23] metoprolol succinate 50 mg tablet,extended release 24 hr (Toprol XL) 50 mg PO DAILY #90 tabs 03/27/23 [Rx Confirmed 04/23/23] amoxicillin 875 mg-potassium clavulanate 125 mg tablet 1 tab PO Q12H 04/19/23 [History Confirmed 04/23/23] ondansetron 4 mg disintegrating tablet 4 mg PO Q8H PRN PRN Nausea #10 tabs 04/21/23 [Rx Confirmed 04/23/23] Post menopausal: No Patient : No : No PFSH Medical History Alcohol use Asthma Borderline personality disorder Bulimia nervosa, purging type Generalized anxiety disorder History of pain when walking Leg cramps Major depressive disorder, recurrent severe without psychotic features Marijuana use Migraine headache Non-smoker Palpitations Restless legs Shortness of breath on exertion Visit for suture removal Wears glasses Surgical History Hx of cholecystectomy Family History Grandmother Breast cancer Cancer skinMother Hypertension Seizures Social History (Updated 04/23/23 @ 13:23 by Jaclyn Thurston) household members: none Smoking Status: Never smoker alcohol intake: current details: occasionally substance use type: marijuana caffeine: Yes additional social history: Boyfriend-Vishnu HPI ED f/u ectopic see chart notes Details: SHEILA GARCIA is a 18 year old who presents for ER follow up. She received a second dose of mtx in ER due to poor instructions the first time she was given the shot. She was still taking vitamins and eating green veggies. her quant level had increased from 379 to 602 from day 1 to 3. Today she is tearful stating that her pain is worse than the last few days. She states that she had 1 drop of blood only during all of this. History 1 Elective abortions Hx Para 0 Spontaneous abortions Hx # Term Pregnancies Ectopic pregnancies 1 Hx # Pregnancies Multiple births # of living children ROS Const ROS Unobtainable: All systems reviewed & are unremarkable except as noted in H Resp Resp: Reports system reviewed and no additional complaints, except as documen byron; Denies cough GI GI: Reports as per HPI Psych Psych: Reports system reviewed and no additional complaints, except as documented Exam Const General: cooperative, healthy appearing, comfortable and no acute distress Resp Effort & Inspection: normal respiratory effort General: bimanual renal exam normal bilaterally External Female Exam: normal appearance of the urethra Urethra: normal appearance of the urethra Speculum Exam - Vagina: normal appearance of the vagina Speculum Exam - Cervix: normal appearance of the cervix Other: ultrasound shows doubling in size of the ectopic from ultrasound on 04/21. trace free fluid present. (measures 4 x 2 cm with internal echoes) Skin General: no rashes or lesions noted Psych Appearance: grossly normal Speech and Movement: speech and movement normal Coding Level of Care Code Off vis,new,level 4 Diagnoses Ectopic , tubal O00.109 Assessment and Plan Assessment and Plan (1) Ectopic , tubal: Status: Acute Plan: due to increasing pain today, I do not feel repeating the quant will be of any value. Surgery is the recommended next step for enlarging ectopic . Dr. Low is slot operations director today and is willing to take her to surgery. After discussing the patient's diagnosis and treatment plan options, patient wishes to proceed with surgical management. The plan is for a laparoscopic salpingectomy, removal of ectopic . Dr. Low and I have discuss ed with the patient the risks, benefits, and alternatives of the procedure which include but are not limited to risks of anesthesia, bleeding, infection, possible damage to bowel, bladder, or surrounding vasculature which could lead to additional surgery to evaluate any complications. Patient agrees to procedure and wishes to proceed.
[2023-04-23 14:34] VITALS: BP 142/92; PULSE 108; RESP 16; TEMP 36.4; O2SAT 99; BMI 46.7
[2023-04-23] MEDS: Lactated Ringers 1,000 ML 15 ML IV (14:39)
[2023-04-23 15:06] LABS: Absolute Lymphocyte Count 2.69 X10^3/uL (0.83-4.51); Absolute Neutrophil Count 7.1 X10^3/uL (2.0-7.7); Basophil# 0.06 X10^3/uL; Basophil% 0.6 % (0-1); Eosinophil# 0.17 X10^3/uL; Eosinophils% 1.7 % (0-5); Hematocrit 35.2 % (37-47); Hemoglobin 11.6 g/dL (12.0-15.0); Lymphocyte # 2.69 X10^3/ul (0.83-4.51); Lymphocyte % 26.1 % (19-41); Mean Corpuscular Hgb 27.4 pg (27.0-32.0); Mean Platelet Vol. 8.6 fl (6.2-12.0); Monocyte% 1.9 % (0-10); NRBC Flagged by Analyzer 0 % (0-5); Neutrophil # 7.13 X10^3/uL (2.7-7.7); Neutrophil % 69.3 % (47-70); Platelet Count 352 K/mm3 (150-450); RBC Distribution Width CV 13.8 % (11.6-14.6); RBC Distribution Width SD 41.8 fl (35.1-43.9); Red Blood Count 4.24 M/mm3 (4.2-5.4); White Blood Count 10.3 K/mm3 (4.4-11.0)
[2023-04-23] MEDS: Bupivacaine 0.25% 30 ML Vial (16:05)
--- NOTE | 2023-04-23 16:28 | PCM.OPRPT ---
Problems Associated Problem List Diagnoses (1) Ectopic , tubal: Report of Operation Date of Procedure: 04/23/23 Pre-Operative Diagnosis: ectopic Post-Operative Diagnosis: right adnexal cyst Surgery/Procedure Performed:: d and c and diagnostic laparoscopy laparoscopic ovarian cystotomy Description of Surgical Findings:: nl tubes left ovary with simple cyst, free fluid in cul de sac Surgeon: Janteh Low strategic communications specialist: Christian Person Type of Anesthesia: General Special Medications: none Specimen's removed: EMC Estimated Blood Loss (mL): 50 Fluids Replaced: crystalloid Complications none Multi Select Codes Urinary/Genital Urinary/Genital CPT Codes: 92310 Non-ob D&C (unsure if this correct ATTENTION BILLING) and Other Procedure See Report (72657, laparoscopic ovarian cystotomy (78425?))
[2023-04-23] MEDS: Sugammadex Sodium 200 MG/2 ML VIAL IV (16:34)
--- NOTE | 2023-04-23 16:41 | DCINST_ITS ---
Discharge Instructions Diet Discharge Diet: No restrictions Activity Discharge Activity: Return to Normal Activity, May Not Drive (for 2 weeks or while taking narcotic pain meds.), May Shower and May Take a Tub Bath (in 7 days) May resume sexual activity in: 1 week Weight Bearing Status: Full weight bearing Dressing / Incision Call your doctor if your incision/area has: Continuous Slow Oozing, Sudden Increased Bleeding, Increased Pain/ Swelling, Increased Redness and Foul Smelling Discharge Call your doctor if you observe: Fever of 101 or Higher, Using more than 1 pad per hour, Shortness of breath, Chest pain and Uncontrolled pain Suture Line Care: Avoid Pulling/Pushing and Avoid Pinching/Bending Remove Dressing in: 1 week (if present) Cleanse incision/area with: Soap & Water and Keep Dressing Clean & Dry Follow Up Care When: Call to make an appointment with your doctor for a fu/incision check in 1- 2 weeks. Test Results: Test results from this visit will be discussed in further detail at your follow- up appointment, if applicable. Discharge Plan Admission Attending Provider: Janeth Low Primary Care Provider: Nikki Grey NP Discharge Orders/Prescriptions Prescriptions: No Action fluoxetine 40 mg capsule 40 mg PO DAILY aripiprazole [Abilify] 10 mg tablet 20 mg PO DAILY hydroxyzine HCl 25 mg tablet 25 mg PO TID PRN (Reason: anxiety) lorazepam [Ativan] 1 mg tablet 1 mg PO TID PRN PRN (Reason: Panic attacks) Patient Comments: As needed metoprolol succinate [Toprol XL] 50 mg tablet extended release 24 hr 50 mg PO DAILY Qty: 90 3RF amoxicillin-pot clavulanate 875-125 mg tablet 1 tab PO Q12H Patient Comments: TAKE 1 TABLET BY MOUTH TWICE DAILY FOR 10 DAYS ondansetron [ondansetron] 4 mg tablet,disintegrating 4 mg PO Q8H PRN PRN (Reason: Nausea) Qty: 10 0RF Referrals / Follow Up: Nikki rGey NP, RUBBER COMPOUNDER-C [Primary Care Provider] - Disposition Disposition (needs filled in before D/C Order can be placed): Home, Self Care
[2023-04-23 16:43] VITALS: BP 129/70; BP 142/92; PULSE 112; RESP 18; TEMP 36.4; O2SAT 90
[2023-04-23 16:45] VITALS: BP 125/65; BP 142/92; PULSE 115; RESP 18; O2SAT 95
[2023-04-23 17:00] VITALS: BP 108/58; BP 142/92; PULSE 106; RESP 18; O2SAT 99
[2023-04-23 17:08] VITALS: BP 101/48; BP 142/92; PULSE 105; RESP 18; TEMP 36.5; O2SAT 97
[2023-04-23 17:47] VITALS: BP 109/70; BP 142/92; PULSE 108; RESP 18; TEMP 37.1; O2SAT 95
== END 2023-04-23 18:21 | disposition home or self-care (01) ==
LOC: SDC 14:04 → AC 14:06
PROVIDERS: PCP Nurse Practitioner Family; Referring Provider Obstetrics & Gynecology; Visit Provider Obstetrics & Gynecology
PROC: 10T24ZZ Resection of Products of Conception, Ectopic, Percutaneous Endoscopic Approach (ICD-10-PCS; CPT 59150; principal; 2023-04-23 16:00)
DX: O00.109 Unspecified tubal pregnancy without intrauterine pregnancy (principal); F60.3 Borderline personality disorder; F33.9 Major depressive disorder, recurrent, unspecified; O99.340 Other mental disorders complicating pregnancy, unspecified trimester; O99.320 Drug use complicating pregnancy, unspecified trimester; O34.80 Maternal care for other abnormalities of pelvic organs, unspecified trimester; O99.891 Other specified diseases and conditions complicating pregnancy; F41.1 Generalized anxiety disorder; N83.201 Unspecified ovarian cyst, right side; F12.90 Cannabis use, unspecified, uncomplicated; Z79.899 Other long term (current) drug therapy
CPT/HCPCS: 58662; 58120; 00840; 85025; 86850; 86900; 86901; 88305; J7120; J2405

== ENCOUNTER 2023-04-28 13:24 | Emergency (ER) | payer MEDICAID, SELFPAY ==
[2023-04-28 13:26] VITALS: BP 134/78; PULSE 106; RESP 18; TEMP 36.4; O2SAT 99; BMI 47.2
--- NOTE | 2023-04-28 13:59 | EKG12_ITS ---
Test Reason : Blood Pressure : / mmHG Vent. Rate : 088 BPM Atrial Rate : 088 BPM P-R Int : 158 ms QRS Dur : 086 ms QT Int : 340 ms P-R-T Axes : 038 054 037 degrees QTc Int : 411 ms Sinus rhythm with marked sinus arrhythmia Otherwise normal ECG Confirmed by LOPEZ MACHADO, KATHY ([id number]), social media editor MERLIN FAYE ([id number]) on 05/06/2023 7:07:53 AM Referred By: Confirmed By:JEFFREY MARROQUIN MD
--- NOTE | 2023-04-28 14:09 | EDS_ITS ---
HPI HPI - Female History of Present Illness Chief Complaint: Informant: patient Narrative Narrative: Patient is a 18-year-old female recently undergoing treatment for ectopic presenting at the request of her ORNAMENTAL PLASTERER HELPER, Dr. Grijalva, for repeat dose of methotrexate. Patient was diagnosed initially with ectopic 1 week ago. She received a dose of methotrexate and a couple days later received a second dose. She was taken to the OR for concern of possible ruptured ectopic however she did not have any findings of ectopic and the fallopian tubes and the fluid collection was found to be serous associate with a corpus luteum cyst. She did undergo a D&C however there is no signs of products of conception in the D&C. She had repeat quant today which decreased from 600-540. OB was concerned this was not significant of decreased the patient continues to have right-sided abdominal pain. She sent to the ER for further evaluation and repeat dose of methotrexate. Patient notes that she has had ongoing pain in her right lower abdomen however it is no longer sharp and more of a weird pressure. She has no relief with ibuprofen. She has had a very mild vaginal bleeding. She has had some mild urinary frequency but states she is taking in a lot of fluids. Has had nausea. Note that since the surgery she has had some mild shortness of breath and the sensation of not being able to take a deep breath. She has had continued cramping lower abdominal pain into her back. She was recently on antibiotics for her lungs and she believes it was Augmentin. She notes that she did have a temperature of 100.32 days ago but is not had any since. No other complaints at this time. [facility] Medical History Alcohol use Asthma Borderline personality disorder Bulimia nervosa, purging type Generalized anxiety disorder History of pain when walking Leg cramps Major depressive disorder, recurrent severe without psychotic features Marijuana use Migraine headache Non-smoker Palpitations Restless legs Shortness of breath on exertion Visit for suture removal Wears glasses Home Medications fluoxetine 40 mg capsule 40 mg PO DAILY 03/15/23 [History Last Taken Unknown] aripiprazole 10 mg tablet (Abilify) 20 mg PO DAILY 03/27/23 [History Last Taken Unknown] hydroxyzine HCl 25 mg tablet 25 mg PO TID PRN anxiety 03/27/23 [History Last Taken Unknown] lorazepam 1 mg tablet (Ativan) 1 mg PO TID PRN PRN Panic attacks 03/27/23 [History Last Taken Unknown] metoprolol succinate 50 mg tablet,extended release 24 hr (Toprol XL) 50 mg PO DAILY #90 tabs 03/27/23 [Rx Last Taken Unknown] amoxicillin 875 mg-potassium clavulanate 125 mg tablet 1 tab PO Q12H 04/19/23 [History Last Taken Unknown] ondansetron 4 mg disintegrating tablet 4 mg PO Q8H PRN PRN Nausea #10 tabs 04/21/23 [Rx Last Taken 04/23/23] naproxen 500 mg tablet 500 mg PO BID PRN PRN Pain 10 days #30 tabs 04/23/23 [Rx Last Taken Unknown] oxycodone-acetaminophen 5 mg-325 mg tablet (Percocet) 1 tab PO Q6H PRN pain 3 days #10 tabs 04/23/23 [Rx Last Taken Unknown] Allergy/AdvReac Type Severity Reaction Status Date / Time bupropion [From Wellbutrin] Allergy Rash Verified 04/28/23 13:26 Family History Grandmother Breast cancer Cancer skin Mother Hypertension Seizures Surgical History Hx of cholecystectomy Social History household members: none Smoking Status: Never smoker alcohol intake: current details: occasionally substance use type: marijuana caffeine: Yes additional social history: Boyfriend-Vishnu ALVIN ALVIN ED Constitutional Constitutional ED: Reports chills and fever(s) Cardiovascular Cardiovascular: Denies chest pain or palpitations Respiratory/Chest Respiratory/Chest: Reports cough and dyspnea; Denies dyspnea on exertion Gastrointestinal Gastrointestinal: Reports abdominal pain and nausea; Denies constipation, diarrhea or vomiting Genitourinary Genitourinary ED: Reports urinary frequency; Denies dysuria Musculoskeletal Musculoskeletal: Denies arthralgias or neck pain Integumentary Reports other Details: Healing surgical incisions ; Denies rash Neurologic Neurologic: Denies headache(s) Psychiatric Psychiatric: Denies anxiety Hematologic/Lymphatic Hematologic/Lymphatic: Denies easy bleeding or easy bruising EXAM Physical Exam Const Vital Signs: 04/28/23 13:26 04/28/23 17:37 Temperature 97.5 F L Temperature Source Temporal Pulse Rate 106 H 78 Respiratory Rate 18 16 Blood Pressure 134/78 H 137/86 H Blood Pressure Mean 96 103 Pulse Ox 99 98 Oxygen Delivery Method Room Air Positive well nourished and well developed General Appearance ED: well developed and NAD HEENT Reports moist mucous membranes Eyes PERRL Neck supple Chest Wall inspection of chest normal and palpation of chest normal Resp normal respiratory effort and clear to auscultation bilaterally Cardio regular rate, regular rhythm and no JVD GI soft to palpation, non-tender and non-distended GI Narrative: Healing surgical laparoscopic incisions at the umbilicus of the left lower quadrant. No significant tenderness. Palpation: Negative for guarding or rigid Back/Spine no CVA tenderness Extremity normal to inspection Neuro oriented x3 Sensorium / Orientation: alert Psych mental status grossly normal Skin no rashes or lesions noted and no wounds Skin Narrative: Healing surgical incisions on the abdomen, see above MDM MDM MDM Narrative Medical decision making narrative: Patient is evaluated for continued lower abdominal pain in the setting of recent ectopic . She received 2 doses of methotrexate and while her hCG is downtrending per her ORNAMENTAL PLASTERER HELPER, is not going down as much as she would like. Patient is also status post laparoscopic procedure which did not show any findings consistent with ectopic on evaluation of the fallopian tubes and D&C was negative for products of conception. Patient does tell me that she has had some sensation of shortness of breath and inability to take a deep breath over the past week as well. Vital signs significant for mild tachycardia upon arrival but she is otherwise well- appearing. Abdominal exam is quite benign. CBC shows normal white blood cell count and a stable hemoglobin. CMP unremarkable and urinalysis not consistent with infection. hCG quant reviewed which does show it is 540, down from 602 a week ago. EKG shows sinus rhythm with sinus arrhythmia and no acute ischemic process. Chest x-ray does not show any acute process. Patient not hypoxic I do not think she requires further cardiopulmonary work-up at this time. I do not think she requires CT of the abdomen pelvis at this time. Given dose of Toradol for discomfort however patient does not appear particularly uncomfortable while in the emergency room. We will continue to follow-up outpatient with ORNAMENTAL PLASTERER HELPER. Given return precautions to the ER. Nurse practitioner able to administer IM methotrexate. History & Record Review Discussion w/independent historian: Patient and Other (ORNAMENTAL PLASTERER HELPER) Lab Data Attestation: I reviewed the patient's lab results. Labs: Laboratory Results - last 24 hr 04/28/23 04/28/23 14:20 15:12 WBC 10.5 RBC 4.36 Hgb 12.0 Hct 36.8 L MCV 84.4 MCH 27.5 MCHC 32.6 RDW Std Deviation 41.9 RDW Coeff of Dangelo 14.1 Plt Count 235 MPV 8.7 Immature Gran % (Auto) 0.800 Neut % (Auto) 61.3 Lymph % (Auto) 28.4 [place] % (Auto) 3.3 Eos % (Auto) 5.8 H Baso % (Auto) 0.4 Absolute Neuts (auto) 6.4 Absolute Lymphs (auto) 2.97 Nucleated RBC % 0 Sodium 141 Potassium 3.8 Chloride 107 Carbon Dioxide 28.0 Anion Gap 6 BUN 17 Creatinine 0.65 Estim Creat Clear Calc 119.22 Est GFR (MDRD) Af Amer 149 Est GFR (MDRD) Non-Af 123 BUN/Creatinine Ratio 26.1 H Glucose 97 Calcium 8.9 Total Bilirubin 0.30 AST 15 ALT 48 Alkaline Phosphatase 97 Total Protein 6.9 Albumin 3.3 Globulin 3.6 Albumin/Globulin Ratio 0.9 Urine Color Yellow Urine Clarity Sl. Cloudy Urine pH 6.5 Ur Specific [place] 1.010 Urine Protein Negative Urine Glucose (UA) Normal Urine Ketones Negative Urine Occult Blood 25 H Urine Nitrite Negative Urine Bilirubin Negative Urine Urobilinogen Normal Ur Leukocyte Esterase 25 H Urine RBC 0-5 SEEN Urine WBC 0-5 SEEN Ur Squamous Epith Cells 0-5 SEEN Amorphous Sediment 1+ PHOS Urine Bacteria 0 SEEN Urine Mucus 0 SEEN Radiography Chest X-Ray - ED: 2 View, Read by ED Physician, Read by Radiologist and No Acute Disease Diagnostic Testing: Clinical Impression(s) from Imaging Studies Chest X-Ray 04/28/23 15:35 IMPRESSION: No radiographic evidence of acute cardiopulmonary disease. Electronically Signed: Conrado Funez MD at 16:03 EST , Rhythm Strip Rhythm Strip: Sinus Rhythm Rate: 88 Ectopy: None EKG Initial EKG: Attestation: I personally reviewed and interpreted this EKG as follows: Interpretation: Sinus Rhythm Comments: Normal sinus rhythm at a rate of 88 bpm with sinus arrhythmia, suspect respiratory variation Normal intervals Normal axis Normal ST segments Management Discussion w/another healthcare provider: Rehabilitation Therapy Technician (OBGYN) Discharge Plan Triage Chief Complaint: ED Provider: Rufina Edwards Dx/Rx/DC Orders Clinical Impression: Ectopic , tubal, Abdominal pain Instructions: ED Methotrexate for Ectopic ... Prescriptions: No Action fluoxetine 40 mg capsule 40 mg PO DAILY aripiprazole [Abilify] 10 mg tablet 20 mg PO DAILY hydroxyzine HCl 25 mg tablet 25 mg PO TID PRN (Reason: anxiety) lorazepam [Ativan] 1 mg tablet 1 mg PO TID PRN PRN (Reason: Panic attacks) Patient Comments: As needed metoprolol succinate [Toprol XL] 50 mg tablet extended release 24 hr 50 mg PO DAILY Qty: 90 3RF amoxicillin-pot clavulanate 875-125 mg tablet 1 tab PO Q12H Patient Comments: TAKE 1 TABLET BY MOUTH TWICE DAILY FOR 10 DAYS ondansetron [ondansetron] 4 mg tablet,disintegrating 4 mg PO Q8H PRN PRN (Reason: Nausea) Qty: 10 0RF oxycodone-acetaminophen [Percocet] 5-325 mg tablet 1 tab PO Q6H PRN (Reason: pain) 3 Days Qty: 10 0RF naproxen 500 mg tablet 500 mg PO BID PRN PRN (Reason: Pain) 10 Days Qty: 30 0RF Primary Care Provider: Nikki Grey NP Referrals: Nikki Grey NP, LINE DANCER-C [Primary Care Provider] - Activity Restrictions/Additional Instructions: Please continue to follow-up with ORNAMENTAL PLASTERER HELPER. Return to the ER if you have severe pain or further progression of your symptoms or have further concerns. You were given additional dose of methotrexate today per the recommendation of your ORNAMENTAL PLASTERER HELPER. Continue to alternate ibuprofen and Tylenol as needed for discomfort. Your work-up including EKG, chest x-ray and blood work was largely normal today. Disposition Disposition: Home, Self Care Discharge Date/Time: 04/28/23 17:43
[2023-04-28 14:27] LABS: Absolute Lymphocyte Count 2.97 X10^3/uL (0.83-4.51); Absolute Neutrophil Count 6.4 X10^3/uL (2.0-7.7); Basophil# 0.04 X10^3/uL; Basophil% 0.4 % (0-1); Eosinophil# 0.61 X10^3/uL; Eosinophils% 5.8 % (0-5); Hematocrit 36.8 % (37-47); Lymphocyte # 2.97 X10^3/ul (0.83-4.51); Lymphocyte % 28.4 % (19-41); Mean Corp Hgb Conc 32.6 g/dL (32-36); Mean Corpuscular Hgb 27.5 pg (27.0-32.0); Mean Corpuscular Volume 84.4 fL (81-99); Mean Platelet Vol. 8.7 fl (6.2-12.0); Monocyte# 0.34 X10^3/uL; Monocyte% 3.3 % (0-10); NRBC Flagged by Analyzer 0 % (0-5); Neutrophil # 6.42 X10^3/uL (2.7-7.7); Neutrophil % 61.3 % (47-70); Platelet Count 235 K/mm3 (150-450); RBC Distribution Width CV 14.1 % (11.6-14.6); RBC Distribution Width SD 41.9 fl (35.1-43.9); Red Blood Count 4.36 M/mm3 (4.2-5.4); White Blood Count 10.5 K/mm3 (4.4-11.0)
[2023-04-28 14:43] LABS: ALB/GLOB Ratio 0.9 RATIO (0.9-2.4); AST(SGOT) 15 U/L (15-37); Alanine Aminotransfer ALT/SGPT 48 U/L (13-56); Albumin, Serum 3.3 g/dL (3.2-5.0); Alkaline Phosphatase 97 U/L (45-117); Anion Gap 6 (5-15); BUN 17 mg/dL (7-18); BUN/Creat Ratio 26.1 RATIO (10-20); Calcium,Total 8.9 mg/dL (8.5-10.1); Chloride 107 mmol/L (98-107); Creatinine, Serum 0.65 mg/dL (0.55-1.02); EST Glomerular Filtration Rate 123 mL/min (>60); Est Glom Filt Rate - Afr Amer 149 mL/min (>60); Estimated Creatinine Clearance 119.22 ml/min; Globulin 3.6 g/dL (2.2-4.2); Glucose 97 mg/dL (74-106); Potassium 3.8 mmol/L (3.5-5.1); Protein, Total 6.9 g/dL (6.4-8.2); Sodium Level 141 mmol/L (136-145)
[2023-04-28 15:23] LABS: Bacteria 0 SEEN /hpf (None Seen); Mucous, Urine 0 SEEN /hpf (<or=2+)
--- NOTE | 2023-04-28 15:35 | RAD_ITS ---
EXAM: XR CHEST, 2 VIEWS CLINICAL INDICATION: cough TECHNIQUE: Frontal and lateral views of the chest. COMPARISON: 02.13.23 FINDINGS: LUNGS AND PLEURAL SPACES: Unremarkable. No consolidation or edema. No pneumothorax. No effusion. HEART: Unremarkable. Cardiac silhouette not enlarged. MEDIASTINUM: Central airways and mediastinal contour are unremarkable. BONES/JOINTS: Unremarkable. SOFT TISSUES: Unremarkable. RAD/Chest PA and Lateral IMPRESSION: No radiographic evidence of acute cardiopulmonary disease. Electronically Signed: Conrado Funez MD at 16:03 EST ,
[2023-04-28 15:36] LABS: Color, Urine Yellow (Yellow); Glucose, Dipstick Normal (Normal); Ketone-Dipstick Negative (Negative); Leukocyte Esterase-Dipstick 25 /ul (Negative); Nitrite-Dipstick Negative (Negative); Occult Blood-Urine 25 /ul (Negative); Protein-Dipstick Negative (Negative); Urine Bilirubin Dipstick Negative (Negative); Urine Clarity Sl. Cloudy (Clear); Urine Urobilinogen Normal (Normal); Urine pH 6.5 (5.0 - 8.0)
[2023-04-28 15:47] LABS: Amorphous Sediment 1+ PHOS; Red Blood Cells-Urine 0-5 SEEN /hpf (0-5); Squamous Epithelial Cells - UA 0-5 SEEN /hpf (5-10); White Blood Cells 0-5 SEEN /hpf (0-5)
[2023-04-28] MEDS: Ketorolac 15 MG/ML Vial IV (17:34)
[2023-04-28 17:37] VITALS: BP 137/86; PULSE 78; RESP 16; O2SAT 98
== END 2023-04-28 17:43 | disposition home or self-care (01) ==
PROVIDERS: Emergency Provider Emergency Medicine; PCP Nurse Practitioner Family; Visit Provider Emergency Medicine
DX: O00.109 Unspecified tubal pregnancy without intrauterine pregnancy (principal); O99.891 Other specified diseases and conditions complicating pregnancy; O99.320 Drug use complicating pregnancy, unspecified trimester; F12.90 Cannabis use, unspecified, uncomplicated; R10.9 Unspecified abdominal pain
CPT/HCPCS: 36415; 71046; 80053; 81001; 84702; 85025; 93005; 96374; 96375; 99282; J7030; A4216; J9250

== ENCOUNTER → 2023-04-28 | Outpatient (CLI) | payer MEDICAID, SELFPAY ==
[2023-04-28 10:39] LABS: hCG Titer Quant., Serum 540 mIU/mL (1-3)
== END | disposition home or self-care (01) ==
PROVIDERS: PCP Nurse Practitioner Family; Visit Provider Obstetrics & Gynecology
DX: O00.109 Unspecified tubal pregnancy without intrauterine pregnancy (principal)
CPT/HCPCS: 36415; 84702

== ENCOUNTER → 2023-04-29 | Outpatient (CLI) | payer MEDICAID, SELFPAY ==
[2023-04-29 16:28] LABS: Absolute Lymphocyte Count 2.31 X10^3/uL (0.83-4.51); Absolute Neutrophil Count 8.8 X10^3/uL (2.0-7.7); Basophil# 0.04 X10^3/uL; Basophil% 0.3 % (0-1); Eosinophil# 0.44 X10^3/uL; Eosinophils% 3.7 % (0-5); Hematocrit 37.3 % (37-47); Hemoglobin 12.3 g/dL (12.0-15.0); Lymphocyte # 2.31 X10^3/ul (0.83-4.51); Lymphocyte % 19.4 % (19-41); Mean Corpuscular Hgb 27.7 pg (27.0-32.0); Mean Platelet Vol. 8.9 fl (6.2-12.0); Monocyte# 0.32 X10^3/uL; Monocyte% 2.7 % (0-10); NRBC Flagged by Analyzer 0 % (0-5); Neutrophil # 8.75 X10^3/uL (2.7-7.7); Neutrophil % 73.4 % (47-70); Platelet Count 247 K/mm3 (150-450); RBC Distribution Width CV 14.4 % (11.6-14.6); RBC Distribution Width SD 43.1 fl (35.1-43.9); Red Blood Count 4.44 M/mm3 (4.2-5.4); White Blood Count 11.9 K/mm3 (4.4-11.0)
[2023-04-29 16:34] LABS: ALB/GLOB Ratio 0.8 RATIO (0.9-2.4); AST(SGOT) 47 U/L (15-37); Alanine Aminotransfer ALT/SGPT 54 U/L (13-56); Albumin, Serum 3.4 g/dL (3.2-5.0); Alkaline Phosphatase 91 U/L (45-117); Anion Gap 6 (5-15); BUN 14 mg/dL (7-18); BUN/Creat Ratio 19.6 RATIO (10-20); Calcium,Total 8.9 mg/dL (8.5-10.1); Chloride 107 mmol/L (98-107); Creatinine, Serum 0.71 mg/dL (0.55-1.02); EST Glomerular Filtration Rate 111 mL/min (>60); Est Glom Filt Rate - Afr Amer 134 mL/min (>60); Glucose 101 mg/dL (74-106); Potassium 4.1 mmol/L (3.5-5.1); Protein, Total 7.4 g/dL (6.4-8.2); Sodium Level 138 mmol/L (136-145)
[2023-04-29 16:48] LABS: hCG Titer Quant., Serum 173 mIU/mL (1-3)
== END | disposition home or self-care (01) ==
LOC: PAVLAB 15:53
PROVIDERS: PCP Nurse Practitioner Family; Referring Provider Obstetrics & Gynecology; Visit Provider Obstetrics & Gynecology
DX: O00.90 Unspecified ectopic pregnancy without intrauterine pregnancy (principal)
CPT/HCPCS: 36415; 80053; 84702; 85025

== ENCOUNTER 2023-05-01 15:10 | Emergency (ER) | payer MEDICAID, SELFPAY ==
[2023-05-01 15:11] VITALS: BP 134/76; PULSE 102; RESP 18; TEMP 36.8; O2SAT 100; BMI 47.0
--- NOTE | 2023-05-01 15:37 | US_ITS ---
STUDY: FIRST TRIMESTER OBSTETRICAL ULTRASOUND REASON FOR EXAM: Female, 18 years old pelvic pain, vaginal bleeding LMP: TECHNIQUE: Transvaginal TECHNICAL QUALITY: Adequate. PRIOR ULTRASOUND: None. FINDINGS: No evidence for intrauterine gestation The uterus measures 9.4 x 4.4 x 3.8 cm. There is no demonstrated uterine fibroid. The cervix is closed. The endometrial lining is thickened and heterogeneous in appearance measuring approximately 1.2 cm The right ovary measures 4.2 x 2.7 x 1.6 cm. There is no right ovarian cyst. Small complex cyst measuring 2.1 x 1.3 x 1.3 cm The left ovary measures 3.6 x 1.9 x 1.3 cm. There is no left ovarian cyst. There is no visualized left adnexal mass or complex lesion. There is minimal fluid in the cul de sac. US/Transvaginal w/Preg US IMPRESSION: No evidence for intrauterine gestation.. Thickened endometrial lining. No definitive evidence for however there is small complex cyst in the right ovary. Recommend clinical correlation and follow-up studies Electronically Signed: Siva Mcelroy MD at 17:58 EST Reading Location ID and State: [facility] / [place] Tel , Service support ,
--- NOTE | 2023-05-01 15:39 | EDS_ITS ---
HPI HPI - Female History of Present Illness Chief Complaint: Female C/O Detail of Chief Complaint: Abdominal pain Informant: patient Narrative Narrative: Patient presents to the emergency department complaint of lower abdominal pain that started yesterday. Patient states that she has had a complicated history recently with recent ectopic for which she received methotrexate. On April 23 she was taken to the operating room because of the ectopic . Patient states that she was then subsequently seen again in the emergency department 4 days ago for abdominal pain and she received methotrexate again. Patient was seen by her BOWLING BALL FINISHER 3 days ago and was told everything looked well. Today she went to primary care physician's office and she was referred to the emergency department because of continued abdominal pain. Prior to coming in she states that she went to the restroom and passed a large clot of blood vaginally. She then subsequently noticed blood in the urine. She denies d ysuria or urgency or frequency. She denies fevers. She had some chills. Rates her pain in her lower abdomen as an 8 or 9 out of 10. PFSH [facility] Medical History Alcohol use Asthma Borderline personality disorder Bulimia nervosa, purging type Generalized anxiety disorder History of pain when walking Leg cramps Major depressive disorder, recurrent severe without psychotic features Marijuana use Migraine headache Non-smoker Palpitations Restless legs Shortness of breath on exertion Visit for suture removal Wears glasses Home Medications fluoxetine 40 mg capsule 40 mg PO DAILY 03/15/23 [History Last Taken Unknown] aripiprazole 10 mg tablet (Abilify) 20 mg PO DAILY 03/27/23 [History Last Taken Unknown] hydroxyzine HCl 25 mg tablet 25 mg PO TID PRN anxiety 03/27/23 [History Last Taken Unknown] lorazepam 1 mg tablet (Ativan) 1 mg PO TID PRN PRN Panic attacks 03/27/23 [History Last Taken Unknown] metoprolol succinate 50 mg tablet,extended release 24 hr (Toprol XL) 50 mg PO DAILY #90 tabs 03/27/23 [Rx Last Taken Unknown] amoxicillin 875 mg-potassium clavulanate 125 mg tablet 1 tab PO Q12H 04/19/23 [History Last Taken Unknown] ondansetron 4 mg disintegrating tablet 4 mg PO Q8H PRN PRN Nausea #10 tabs 04/21/23 [Rx Last Taken 04/23/23] naproxen 500 mg tablet 500 mg PO BID PRN PRN Pain 10 days #30 tabs 04/23/23 [Rx Last Taken Unknown] oxycodone-acetaminophen 5 mg-325 mg tablet (Percocet) 1 tab PO Q6H PRN pain 3 days #10 tabs 04/23/23 [Rx Last Taken Unknown] Allergy/AdvReac Type Severity Reaction Status Date / Time bupropion [From Wellbutrin] Allergy Rash Verified 05/01/23 15:11 Family History Grandmother Breast cancer Cancer skin Mother Hypertension Seizures Surgical History Hx of cholecystectomy Social History household members: none Smoking Status: Never smoker alcohol intake: current details: occasionally substance use type: marijuana caffeine: Yes additional social history: Boyfriend-Vishnu ALVIN ROS ED Review of Systems ROS Unobtainable: other Constitutional Constitutional ED: Reports lethargy; Denies chills, fever(s), sweats or weight loss Eyes Eyes: Denies blurry vision, change in vision or diplopia ENT ENT ED: Denies rhinorrhea or sore throat Cardiovascular Cardiovascular: Denies chest pain, orthopnea or racing heartbeat Respiratory/Chest Respiratory/Chest: Denies cough, dyspnea, dyspnea on exertion, orthopnea or sputum Gastrointestinal Gastrointestinal: Reports abdominal pain; Denies diarrhea, nausea or vomiting Genitourinary Genitourinary ED: Denies dysuria, hematuria or urinary frequency Musculoskeletal Musculoskeletal: Denies arthralgias, back pain, myalgias or neck pain Integumentary Denies abscess, Abrasions or rash Neurologic Neurologic: Denies headache(s) or weakness Psychiatric Psychiatric: Denies anxiety, depression or suicidal thoughts Endocrine Endocrinology: Denies polydipsia, polyphagia or polyuria Hematologic/Lymphatic Hematologic/Lymphatic: Denies easy bleeding, easy bruising or lymphadenopathy Allergic/Immunologic Allergic/Immunologic ED: Denies mouth swelling, tongue swelling or urticaria EXAM Physical Exam Const Vital Signs: 05/01/23 15:11 05/01/23 19:00 Temperature 98.2 F Temperature Source Temporal Pulse Rate 102 H 98 Respiratory Rate 18 18 Blood Pressure 134/76 H Blood Pressure Mean 95 Pulse Ox 100 97 Oxygen Delivery Method Room Air Room Air Positive well nourished and well developed General Appearance ED: well developed and NAD HEENT Reports TM's clear and moist mucous membranes normocephalic and atraumatic; Negative for trauma or tenderness Tympanic Membrane ED: Yes TM's clear Eyes PERRL and EOMs intact bilaterally General Eye ED: Negative for pale conjunctiva or scleral icterus Neck no lymphadenopathy, supple and no JVD General: Negative for tenderness Chest Wall inspection of chest normal and palpation of chest normal Chest: Negative for tenderness Resp normal respiratory effort and clear to auscultation bilaterally Effort and Inspection: Negative for respiratory distress or pain with movement Auscultation: Negative for rhonchi, wheezes or diminished lung sounds Cardio regular rate, regular rhythm, S1 normal heart sound, S2 normal heart sound and no murmurs Peripheral Pulses: pulses 2+ throughout GI normal to inspection, nondistended, normoactive bowel sounds, soft to palpation, non-distended and no masses GI Narrative: Tenderness palpation over the right lower quadrant and suprapubic region. There are some mild guarding. There is no rebound, rigidity, or peritoneal signs. No mass palpated. Back/Spine no CVA tenderness and no thoracic nor lumbar tenderness Extremity normal to inspection General Extremety ED: Negative for edema General Extremity: Negative for edema Neuro oriented x3, CN's II-XII intact bilaterally, no sensory deficits noted and gait normal Sensorium / Orientation: awake, alert, oriented to person, oriented to place and oriented to time Motor Exam: strength 5/5 throughout and strength abnormal Psych mental status grossly normal Skin no rashes or lesions noted and no wounds MDM MDM MDM Narrative Medical decision making narrative: Patient with ongoing abdominal pain with history of suspicious for ectopic. Recent laparoscopy did not elucidate the ectopic and she had a D&C as well as fluid drained from the right ovarian cyst. Patient presents again with vaginal bleeding and continued lower abdominal pain. In the differential would be a ruptured ectopic versus UTI or kidney stone. We will obtain lab work-up including quantitative hCG. We will obtain a repeat pelvic ultrasound. May need further imaging such as CT scan of the abdomen and pelvis to evaluate further. Patient was medicated with morphine and Zofran. CBC with differential obtained showed a white count of 9.9 with hemoglobin of 12 and platelet count of 230. Chemistries unremarkable. Urinalysis was negative for infection but did show 1 100 RBCs. Patient had a pelvic ultrasound that essentially did not show anything significant just some mild thickening of the endometrium but no evidence of ectopic or free fluid. Patient had a CT scan of the abdomen pelvis that showed essentially nothing acute without evidence for kidney stone or other acute process. Discussed result with BOWLING BALL FINISHER on-call Dr. Hernandez who is familiar with the patient. She recommended that patient keep there up appointm ent with her office which is she believes in 2 days. Patient's quant to did come down to 52 which is a significant drop from prior. Patient tells me she still has pain medication left over from her prior surgery. She does not need anything for pain for home. She is advised to return if worsening pain, persistent heavy bleeding, fever, or condition should worsen anyway Lab Data Attestation: I reviewed the patient's lab results. Labs: Laboratory Results - last 24 hr 05/01/23 15:55 WBC 9.9 RBC 4.41 Hgb 12.5 Hct 37.2 MCV 84.4 MCH 28.3 MCHC 33.6 RDW Std Deviation 43.1 RDW Coeff of Dangelo 14.2 Plt Count 230 MPV 8.8 Immature Gran % (Auto) 0.200 Neut % (Auto) 64.6 Lymph % (Auto) 28.4 [place] % (Auto) 2.9 Eos % (Auto) 3.5 Baso % (Auto) 0.4 Absolute Neuts (auto) 6.4 Absolute Lymphs (auto) 2.81 Nucleated RBC % 0 HCG, Quant 52 H Urine Color Candy Urine Clarity Cloudy Urine pH 7.0 Ur Specific [place] 1.010 Urine Protein 100 H Urine Glucose (UA) Normal Urine Ketones Negative Urine Occult Blood 250 H Urine Nitrite Negative Urine Bilirubin Negative Urine Urobilinogen Normal Ur Leukocyte Esterase 100 H Urine RBC > 100 SEEN Urine WBC 5-10 SEEN Ur Squamous Epith Cells 0 SEEN Urine Bacteria 0 SEEN Urine Mucus 0 SEEN Blood Type O POSITIVE Antibody Screen NEGATIVE Radiography Diagnostic Testing: Clinical Impression(s) from Imaging Studies Obstetrics Ultrasound 05/01/23 15:37 IMPRESSION: No evidence for intrauterine gestation.. Thickened endometrial lining. No definitive evidence for however there is small complex cyst in the right ovary. Recommend clinical correlation and follow-up studies Electronically Signed: Siva Mcelroy MD at 17:58 EST , Abdomen/Pelvis CT 05/01/23 18:18 IMPRESSION: Gallbladder not visualized consistent with prior cholecystectomy or severely contracted state. Clinical correlation recommended in this regard No evidence for renal obstruction or ureteral calculus. No renal mass given the limited unenhanced study No acute abnormalities identified Electronically Signed: Siva Mcelroy MD at 18:58 EST , Discharge Plan Triage Chief Complaint: Female C/O ED Provider: Erin Russ Dx/Rx/DC Orders Clinical Impression: Abdominal pain Instructions: ED Abdominal Pain Unkn Cause Fem Prescriptions: No Action fluoxetine 40 mg capsule 40 mg PO DAILY aripiprazole [Abilify] 10 mg tablet 20 mg PO DAILY hydroxyzine HCl 25 mg tablet 25 mg PO TID PRN (Reason: anxiety) lorazepam [Ativan] 1 mg tablet 1 mg PO TID PRN PRN (Reason: Panic attacks) Patient Comments: As needed metoprolol succinate [Toprol XL] 50 mg tablet extended release 24 hr 50 mg PO DAILY Qty: 90 3RF amoxicillin-pot clavulanate 875-125 mg tablet 1 tab PO Q12H Patient Comments: TAKE 1 TABLET BY MOUTH TWICE DAILY FOR 10 DAYS ondansetron [ondansetron] 4 mg tablet,disintegrating 4 mg PO Q8H PRN PRN (Reason: Nausea) Qty: 10 0RF oxycodone-acetaminophen [Percocet] 5-325 mg tablet 1 tab PO Q6H PRN (Reason: pain) 3 Days Qty: 10 0RF naproxen 500 mg tablet 500 mg PO BID PRN PRN (Reason: Pain) 10 Days Qty: 30 0RF Primary Care Provider: Nikki Grey NP Referrals: Nikki Grey MOTHER SUPERIOR, MOTHER SUPERIOR-C [Primary Care Provider] - Activity Restrictions/Additional Instructions: Keep your appointment as scheduled. Return if worsening pain, persistent heavy bleeding, or condition should worsen anyway Disposition Disposition: Home, Self Care
[2023-05-01 16:04] LABS: Bacteria 0 SEEN /hpf (None Seen); Mucous, Urine 0 SEEN /hpf (<or=2+); Squamous Epithelial Cells - UA 0 SEEN /hpf (5-10)
[2023-05-01 16:12] LABS: Color, Urine Amber (Yellow); Glucose, Dipstick Normal (Normal); Ketone-Dipstick Negative (Negative); Leukocyte Esterase-Dipstick 100 /ul (Negative); Nitrite-Dipstick Negative (Negative); Occult Blood-Urine 250 /ul (Negative); Protein-Dipstick 100 mg/dl (Negative); Urine Bilirubin Dipstick Negative (Negative); Urine Clarity Cloudy (Clear); Urine Urobilinogen Normal (Normal)
[2023-05-01] MEDS: Ondansetron 4 MG/2 ML Vial IV (16:13)
[2023-05-01] MEDS: 0.9% Normal Saline (1000mL) 1,000 ML 1000 ML IV (16:13)
[2023-05-01] MEDS: Morphine 4 MG/ML Syringe IV (16:14)
[2023-05-01 16:15] LABS: Absolute Lymphocyte Count 2.81 X10^3/uL (0.83-4.51); Absolute Neutrophil Count 6.4 X10^3/uL (2.0-7.7); Basophil# 0.04 X10^3/uL; Basophil% 0.4 % (0-1); Eosinophil# 0.35 X10^3/uL; Eosinophils% 3.5 % (0-5); Hematocrit 37.2 % (37-47); Hemoglobin 12.5 g/dL (12.0-15.0); Lymphocyte # 2.81 X10^3/ul (0.83-4.51); Lymphocyte % 28.4 % (19-41); Mean Corp Hgb Conc 33.6 g/dL (32-36); Mean Corpuscular Hgb 28.3 pg (27.0-32.0); Mean Corpuscular Volume 84.4 fL (81-99); Mean Platelet Vol. 8.8 fl (6.2-12.0); Monocyte# 0.29 X10^3/uL; Monocyte% 2.9 % (0-10); NRBC Flagged by Analyzer 0 % (0-5); Neutrophil # 6.39 X10^3/uL (2.7-7.7); Neutrophil % 64.6 % (47-70); Platelet Count 230 K/mm3 (150-450); RBC Distribution Width CV 14.2 % (11.6-14.6); RBC Distribution Width SD 43.1 fl (35.1-43.9); Red Blood Count 4.41 M/mm3 (4.2-5.4); White Blood Count 9.9 K/mm3 (4.4-11.0)
[2023-05-01 16:23] LABS: Red Blood Cells-Urine > 100 SEEN /hpf (0-5)
[2023-05-01 16:25] LABS: White Blood Cells 5-10 SEEN /hpf (0-5)
[2023-05-01 17:03] LABS: hCG Titer Quant., Serum 52 mIU/mL (1-3)
--- NOTE | 2023-05-01 18:18 | CT_ITS ---
STUDY: CT ABDOMEN AND PELVIS WITHOUT CONTRAST REASON FOR EXAM: Female, 18 years old. right flank pain RADIATION DOSAGE (If Supplied By Facility): CTDIvol = ( 22.67 ) mGy, DLP = ( 1170.83 ) mGycm TECHNIQUE: Transaxial images were obtained from the dome of the diaphragm to the symphysis pubis without oral contrast, and without intravenous contrast. Sagittal and coronal images were reconstructed. Individualized dose optimization techniques were used for this CT. COMPARISON: None. FINDINGS: The visualized lung bases are unremarkable. The visualized portions of the heart are within normal limits. Normal liver. Gallbladder not visualized possibly due to severely contracted state or prior cholecystectomy Normal spleen. Normal pancreas. Normal bilateral adrenal glands. Normal right kidney. Normal left kidney. Normal visualized stomach. Normal small intestine. Normal colon. The appendix is visualized and appears normal. Normal abdominal aorta. Normal inferior vena cava. Normal retroperitoneum. Normal urinary bladder. Normal abdominal wall. Normal osseous structures. CT/Abdomen/Pelvis without Cont IMPRESSION: Gallbladder not visualized consistent with prior cholecystectomy or severely contracted state. Clinical correlation recommended in this regard No evidence for renal obstruction or ureteral calculus. No renal mass given the limited unenhanced study No acute abnormalities identified Electronically Signed: Siva Mcelroy MD at 18:58 EST ,
[2023-05-01 19:00] VITALS: PULSE 98; RESP 18; O2SAT 97
== END 2023-05-01 19:50 | disposition home or self-care (01) ==
PROVIDERS: Emergency Provider Emergency Medicine; PCP Nurse Practitioner Family; Visit Provider Emergency Medicine
DX: R10.30 Lower abdominal pain, unspecified (principal); F12.90 Cannabis use, unspecified, uncomplicated
CPT/HCPCS: 74176; 76817; 81001; 84702; 85025; 86850; 86900; 86901; 96361; 96374; 96375; 99283; J7030; A4216; J2405

== ENCOUNTER → 2023-05-06 | Outpatient (CLI) | payer MEDICAID, SELFPAY ==
[2023-05-06 14:30] LABS: Absolute Lymphocyte Count 2.57 X10^3/uL (0.83-4.51); Absolute Neutrophil Count 6.3 X10^3/uL (2.0-7.7); Basophil# 0.06 X10^3/uL; Basophil% 0.6 % (0-1); Eosinophils% 5.1 % (0-5); Hematocrit 37.2 % (37-47); Hemoglobin 12.1 g/dL (12.0-15.0); Lymphocyte # 2.57 X10^3/ul (0.83-4.51); Lymphocyte % 26.1 % (19-41); Mean Corp Hgb Conc 32.5 g/dL (32-36); Mean Corpuscular Hgb 27.7 pg (27.0-32.0); Mean Corpuscular Volume 85.1 fL (81-99); Mean Platelet Vol. 8.6 fl (6.2-12.0); Monocyte# 0.38 X10^3/uL; Monocyte% 3.9 % (0-10); NRBC Flagged by Analyzer 0 % (0-5); Neutrophil # 6.29 X10^3/uL (2.7-7.7); Neutrophil % 63.8 % (47-70); Platelet Count 339 K/mm3 (150-450); RBC Distribution Width CV 14.7 % (11.6-14.6); RBC Distribution Width SD 44.4 fl (35.1-43.9); Red Blood Count 4.37 M/mm3 (4.2-5.4); White Blood Count 9.9 K/mm3 (4.4-11.0)
[2023-05-06 14:57] LABS: AST(SGOT) 16 U/L (15-37); Alanine Aminotransfer ALT/SGPT 29 U/L (13-56); Albumin, Serum 3.6 g/dL (3.2-5.0); Alkaline Phosphatase 107 U/L (45-117); Anion Gap 7 (5-15); BUN 9 mg/dL (7-18); BUN/Creat Ratio 12.4 RATIO (10-20); Calcium,Total 8.7 mg/dL (8.5-10.1); Chloride 109 mmol/L (98-107); Creatinine, Serum 0.72 mg/dL (0.55-1.02); EST Glomerular Filtration Rate 109 mL/min (>60); Est Glom Filt Rate - Afr Amer 132 mL/min (>60); Globulin 3.7 g/dL (2.2-4.2); Glucose 83 mg/dL (74-106); Potassium 3.7 mmol/L (3.5-5.1); Protein, Total 7.3 g/dL (6.4-8.2); Sodium Level 141 mmol/L (136-145)
[2023-05-06 14:59] LABS: hCG Titer Quant., Serum 5 mIU/mL (1-3)
== END | disposition home or self-care (01) ==
LOC: PAVLAB 14:18
PROVIDERS: PCP Nurse Practitioner Family; Referring Provider Obstetrics & Gynecology; Visit Provider Obstetrics & Gynecology
DX: O00.90 Unspecified ectopic pregnancy without intrauterine pregnancy (principal)
CPT/HCPCS: 36415; 80053; 84702; 85025

== ENCOUNTER → 2023-05-22 | Outpatient (CLI) | payer MEDICAID, SELFPAY ==
[2023-05-22 13:28] LABS: hCG Titer Quant., Serum < 1 mIU/mL (1-3)
== END | disposition home or self-care (01) ==
LOC: PAVLAB 12:27
PROVIDERS: PCP Nurse Practitioner Family; Referring Provider Nurse Practitioner Women's Health; Visit Provider Nurse Practitioner Women's Health
DX: O00.90 Unspecified ectopic pregnancy without intrauterine pregnancy (principal)
CPT/HCPCS: 36415; 84702

== ENCOUNTER 2023-08-21 03:56 | Emergency (ER) | payer MEDICAID, SELFPAY ==
[2023-08-21 03:56] VITALS: BP 150/70; PULSE 113; RESP 18; TEMP 36.8; O2SAT 97; BMI 48.4
--- NOTE | 2023-08-21 04:06 | EX.ED.DYSGE1 ---
HPI History of Present Illness Chief Complaint: Vision Prob Informant: patient Narrative Narrative: Patient has had an intermittent visual disturbance intermittently for the past 4 or 5 days. She has had several episodes tonight, and presents around 4 AM for evaluation for the first time. They are around 20- or 30-second episodes. It looks like white spots throughout all of her vision in both eyes, all visual lizarraga simultaneously. The only other symptom she has during this is feeling fatigued, but she denies near-syncope, syncope, focal neurologic symptoms, headache, eye pain, nausea or vomiting. She feels like she can see the environment through the visual disturbance denies flashes of light. She denies any sensation of a curtain being pulled over either eye. She has had no episodes where it is just 1 eye or just part of her visual field. She has had it occur when she is lying down and when she is sitting up and initially occurred while she was standing at work. Does not wear contacts. Does wear eyeglasses. [facility] Medical History Alcohol use Asthma Borderline personality disorder Bulimia nervosa, purging type EP (ectopic ) Generalized anxiety disorder History of pain when walking Leg cramps Major depressive disorder, recurrent severe without psychotic features Marijuana use Migraine headache Non-smoker Palpitations Restless legs Shortness of breath on exertion Visit for suture removal Wears glasses Home Medications levonorgestrel 21 mcg/24 hours (8 yrs) 52 mg intrauterine device (Mirena) 1 device intrauterine ONCE 05/22/23 [History Last Taken Unknown] Allergy/AdvReac Type Severity Reaction Status Date / Time bupropion [From Wellbutrin] Allergy Rash Verified 08/21/23 04:00 Family History Grandmother Breast cancer Cancer skin Mother Hypertension Seizures Surgical History Hx of cholecystectomy Social History household members: none Smoking Status: Never smoker alcohol intake: current details: occasionally substance use type: marijuana caffeine: Yes additional social history: Boyfriend-Vishnu ESQUIVEL ROS ED Constitutional Constitutional ED: Reports fatigue; Denies chills or fever(s) Eyes Eyes: Reports change in vision bilateral; Denies diplopia ENT ENT ED: Denies rhinorrhea or sore throat Cardiovascular Cardiovascular: Denies chest pain or palpitations Respiratory/Chest Respiratory/Chest: Denies cough or dyspnea Gastrointestinal Gastrointestinal: Denies abdominal pain, diarrhea, nausea or vomiting Genitourinary Genitourinary ED: Denies dysuria or hematuria Musculoskeletal Musculoskeletal: Denies back pain or neck pain Integumentary Denies abscess or rash Neurologic Neurologic: Denies headache(s), paresthesias or weakness Psychiatric Psychiatric: Denies anxiety or suicidal thoughts EXAM Physical Exam Const Vital Signs: 08/21/23 03:56 Temperature 98.3 F Temperature Source Temporal Pulse Rate 113 H Respiratory Rate 18 Blood Pressure 150/70 H Blood Pressure Mean 96 Pulse Ox 97 Oxygen Delivery Method Room Air Positive well nourished, well developed and obese General Appearance ED: well developed and NAD Nutritional Appearance: obese HEENT Reports moist mucous membranes normocephalic and atraumatic Eyes PERRL and EOMs intact bilaterally General Eye ED: Yes normal appearance of both eyes Conjunctiva: conjunctiva normal Sclera: sclera normal Cornea: cornea normal Neck full ROM and supple Resp normal respiratory effort and clear to auscultation bilaterally Cardio regular rate, regular rhythm and no murmurs GI non-tender and non-distended Auscultation: normoactive bowel sounds Palpation: soft Back/Spine no CVA tenderness General Back: other FROM Extremity normal to inspection General Extremety ED: Negative for edema, pulses abnormal or tenderness General Extremity: Negative for edema or pulses abnormal Neuro oriented x3, CN's II-XII intact bilaterally, no sensory deficits noted and gait normal Sensorium / Orientation: awake and alert Motor Exam: strength 5/5 throughout Psych Mood & Affect: anxious Skin no rashes or lesions noted and no wounds MDM MDM MDM Narrative Medical decision making narrative: This does not sound like an ophthalmologic problem such as detached retina, vitreous hemorrhage, or lens dislocation. It also does not sound like an ocular migraine since it involves both eyes with all visual field simultaneously, every time and the episodes only last 20 or 30 seconds. To me it sounds more likely to be something metabolic versus hematologic versus psychogenic. She is asymptomatic at the moment except for feeling anxious. She states she has a history of anxiety and depression and takes no medications for it and or anything else except for having an IUD. Basic labs were obtained in addition to visual acuities and a serum test. Vision is 20/20 corrected with her glasses. All of this was unremarkable except for slightly low potassium. Although it is abnormally low it is just barely low at 3.4 and as I discussed with the patient it is possible that this has nothing to do with her symptoms. It is possible that it is related and so I am giving her a potassium pill prior to discharge of 40 mill equivalents. Blood pressure is elevated 150/70. Hypertensive episode is in the differential as well. Hypoglycemias in the differential. Her blood sugar is normal right now 108. I reassuring her and advising her to follow-up with her primary care doctor. Lab Data Attestation: I reviewed the patient's lab results. Labs: Laboratory Results - last 24 hr 08/21/23 04:12 WBC 11.5 H RBC 4.59 Hgb 12.3 Hct 36.9 L MCV 80.4 L MCH 26.8 L MCHC 33.3 RDW Std Deviation 41.0 RDW Coeff of Dangelo 14.1 Plt Count 312 MPV 8.8 Immature Gran % (Auto) 0.300 Neut % (Auto) 56.1 Lymph % (Auto) 36.2 [place]ard % (Auto) 4.1 Eos % (Auto) 2.6 Baso % (Auto) 0.7 Absolute Neuts (auto) 6.4 Absolute Lymphs (auto) 4.15 Nucleated RBC % 0 Sodium 139 Potassium 3.4 L Chloride 109 H Carbon Dioxide 25.0 Anion Gap 5 BUN 12 Creatinine 0.77 Estim Creat Clear Calc 154.66 Est GFR (MDRD) Af Amer 122 Est GFR (MDRD) Non-Af 101 BUN/Creatinine Ratio 15.6 Glucose 108 H Calcium 8.8 Serum , Qual NEGATIVE Discharge Plan Triage Chief Complaint: Vision Prob ED Provider: Juan Ace Dx/Rx/DC Orders Clinical Impression: Binocular visual disturbance Instructions: ED Blurred Vision Prescriptions: No Action Mirena 21 mcg/24 hours (8 yrs) 52 mg intrauterine device 1 device intrauterine ONCE Rx Instructions: as a single dose Primary Care Provider: Nikki Grey NP Referrals: Nikki Grey NP, [employer] [Primary Care Provider] - As soon as possible Disposition Disposition: Home, Self Care
[2023-08-21 04:18] LABS: Absolute Lymphocyte Count 4.15 X10^3/uL (0.83-4.51); Absolute Neutrophil Count 6.4 X10^3/uL (2.0-7.7); Basophil# 0.08 X10^3/uL; Basophil% 0.7 % (0-1); Eosinophils% 2.6 % (0-5); Hematocrit 36.9 % (37-47); Hemoglobin 12.3 g/dL (12.0-15.0); Lymphocyte # 4.15 X10^3/ul (0.83-4.51); Lymphocyte % 36.2 % (19-41); Mean Corp Hgb Conc 33.3 g/dL (32-36); Mean Corpuscular Hgb 26.8 pg (27.0-32.0); Mean Corpuscular Volume 80.4 fL (81-99); Mean Platelet Vol. 8.8 fl (6.2-12.0); Monocyte# 0.47 X10^3/uL; Monocyte% 4.1 % (0-10); NRBC Flagged by Analyzer 0 % (0-5); Neutrophil # 6.44 X10^3/uL (2.7-7.7); Neutrophil % 56.1 % (47-70); Platelet Count 312 K/mm3 (150-450); RBC Distribution Width CV 14.1 % (11.6-14.6); Red Blood Count 4.59 M/mm3 (4.2-5.4); White Blood Count 11.5 K/mm3 (4.4-11.0)
[2023-08-21 04:35] LABS: Internal QC Validated? YES +Cl - CLEAR BKGD; Pregnancy, Serum, hCG Quali. NEGATIVE Negative
[2023-08-21 04:41] LABS: Anion Gap 5 (5-15); BUN 12 mg/dL (7-18); BUN/Creat Ratio 15.6 RATIO (10-20); Calcium,Total 8.8 mg/dL (8.5-10.1); Chloride 109 mmol/L (98-107); Creatinine, Serum 0.77 mg/dL (0.55-1.02); EST Glomerular Filtration Rate 101 mL/min (>60); Est Glom Filt Rate - Afr Amer 122 mL/min (>60); Estimated Creatinine Clearance 154.66 ml/min; Glucose 108 mg/dL (74-106); Potassium 3.4 mmol/L (3.5-5.1); Sodium Level 139 mmol/L (136-145)
[2023-08-21 05:05] VITALS: BP 119/61; PULSE 89; RESP 16; TEMP 36.7; O2SAT 97
[2023-08-21] MEDS: Potassium Chloride Oral Tablet 20 MEQ 40 MEQ PO (05:05)
--- OUTSIDE RECORDS SUMMARY | 2023-08-21 05:14 | XMS RPT_ITS | CCD ---
Author Name Unknown Address [address] [place] [address] Organization [facility] Care Team Providers Care Office Executive Name Role Phone FROILAN MANUEL Unavailable Unavailable REFERRED, SELF Unavailable Unavailable FROILAN MANUEL Unavailable Unavailable Clinic, Rukhsana Luz Primary Care Provider Un available Que CORN POPPER, Carolyne Primary Care Provider TATIANA CARUSO Referring Unavailable CAROLYNE GREY Primary Care Unavailable TATIANA CARUSO Attending Unavailable CAROLYNE GREY Primary Care Unavailable EMANI ABDI Attending Unavailable MIGUELINA CORONA Referring Unavailable MIGUELINA CORONA Referring Unavailable CAROLYNE GREY CORN POPPER%C Referring Unavailab CAROLYNE Willett CORN POPPER%C Consulting Unavailab CARLOTA Cordoba DO Attending Unavailable CARLOTA CHOW DO Primary Care Unavailable CARLOTA CHOW DO Admitting Unavailable PROVIDER, UNKNOWN Consulting Unavailable Allergies Allergy Classification Reported Allergen(s) Allergy Type Date of Onset Reaction(s) Facility (3 sources) buPROPion; Translations: [BUPROPION] Drug Allergy 06-14-2022 Rash [facility] Work Phone: (1 source) buPROPion Drug Allergy [facility] Repository Medications Completed/Discontinued Medications Medication Drug Class(es) Dates Sig (Normalized) Sig (Original) acetaminophen 325 mg / HYDROcodone bitartrate 5 mg oral tablet (4 sources) Opioid Agonist Start: 12-12-2021 End: 12-14-2022 HYDROcodone-acetami nophen (NORCO) 5-325 mg per tablet Take by mouth. 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; Translations: [Other congenital malformations of upper limb(s), including shoulder girdle] Chronic Other connective tissue disease (1 source) Fibromyalgia; Translations: [Fibromyalgia] Episodic Other connective tissue disease (1 source) Fibromyalgia; Translations: [Fibromyalgia] Onset: 12-14-2022 Episodic Other non-traumatic joint disorders (1 source) Pain of right wrist; Translations: [Pain in right wrist] Episodic Results Test Name Value Interpretation Reference Range Facil ity Vital Signs Date Time Vital Sign Value Performing Clinician Sumit savage 12-14-2022 13:02-0400 Body height 160 cm Tatiana Caruso PLANIMETER OPERATOR.LETTERPRESS SETTER Work Phone: [facility] 12-14-2022 13:02-0400 Body weight 122.29 kg Tatiana Caruso PLANIMETER OPERATOR.LETTERPRESS SETTER Work Phone: [facility] 12-14-2022 13:02-0400 Diastolic blood pressure 58 mm[Hg] Tatiana Caruso PLANIMETER OPERATOR.LETTERPRESS SETTER Work Phone: [facility] 12-14-2022 13:02-0400 Heart rate 79 /min Tatiana Caruso PLANIMETER OPERATOR.LETTERPRESS SETTER Work Phone: [facility] 12-14-2022 13:02-0400 Systolic blood pressure 107 mm[Hg] Tatiana Caruso PLANIMETER OPERATOR.LETTERPRESS SETTER Work Phone: [facility] 06-14-2022 10:15-0500 Body height 160 cm Emani Abdi MD Work Phone: [facility] 06-14-2022 10:15-0500 Body weight 113.4 kg Emani Abdi MD Work Phone: [facility] 05-14-2022 16:23-0500 Body temperature 97.81 [degF] Miguelina Corona PA-C Work Phone: [facility] 05-14-2022 16:23-0500 Body weight 114.85 kg Miguelina Corona PA-C Work Phone: [facility] 05-14-2022 16:23-0500 Diastolic blood pressure 64 mm[Hg] Miguelina Denbow PA-C Work Phone: [facility] 05-14-2022 16:23-0500 Heart rate 91 /min Miguelina Corona PA-C Work Phone: [facility] 05-14-2022 16:23-0500 Respiratory rate 18 /min Miguelina Durbinbow PA-C Work Phone: [facility] 05-14-2022 16:23-0500 SaO2% (BldA) [Mass fraction] 99 % Miguelina Corona PA-C Work Phone: [facility] 05-14-2022 16:23-0500 Systolic blood pressure 106 mm[Hg] Miguelina Corona PA-C Work Phone: [facility] Encounters Encounter Date Encounter Type Care Provider Facility Start: 04-18-2023 End: 04-18-2023 Emergency department patient visit CAROLYNE PORTER%C [facility] Start: 12-14-2022 End: 12-15-2022 ambulatory TATIANA CARUSO Facility:[facility] Start: 12-14-2022 End: 12-14-2022 Patient encounter procedure Tatiana Caruso PLANIMETER OPERATOR.LETTERPRESS SETTER Work Phone: Rheumatology Procedures Date Procedure Procedure Detail Performing Clinician Start: 05-14-2022 Radex wrist complete minimum 3 views Miguelina Corona PA-C Work Phone: Plan of Treatment Date Care Activity Detail Author Start: 02-22-2023 Influenza vaccination INFLUENZ A (Season Ended) [facility] Start: 12-14-2022 End: 02-13-2023 Cyclic citrullinated peptide IgG Ab [Units/volume] in Serum or Plasma [facility] Work Phone: Payers Date Payer Category Payer Medicaid [id number] 2022 Medicaid [id number] 2022 Unknown [id number] 2003 Unknown [id number] Social History Date Type Detail Facility Start: 02-28-2022 Tobacco smoking stat us ALIS Never smoked tobacco [facility] Start: 02-28-2022 Tobacco use and exposure Smoke less tobacco non-user [facility] Start: 05-14-2022 End: 12-14-2022 Alcohol intake Lifetime non-drinker (finding) [facility] Start: 2003 Sex Assigned At Not on file C [facility] Clinical Notes 05-14-2022 to 12-14-2022 Tatiana Caruso APRN.LETTERPRESS SETTER - 12/14/2022 1:07 PM Eduin Lindsey Ma - 06/14/2022 10:44 AM Rhea Abdi MD - 06/14/2022 10:06 AM Lynn Funez - 05/24/2022 1:31 PM ESTPatient Instructions Note Date & Type Note Facility 12-14-2022 Note HNO ID: [id number] Author: Tatiana Caruso APRN.LETTERPRESS SETTER Service: ? Author Type: Nurse Practitioner Type: Progress Notes Filed: 12/14/2022 1:28 PM Note Text: Rheumatology CONSULTATION Referring Provider: Self Date of Service: 12/14/2022 Gender: female Ethnicity: White Age: [age] year old Chief Complaint: Consult Last Rheumatology visit: None at [facility] Sheila Malik is a 17 year old White female who presents on 12/14/2022 for in person visit for evaluation of Consult. She is currently taking meloxicam. HISTORY OF PRESENT ILLNESS Consult of widespread pain. INTERVAL HISTORY Referred for joint pain . Patient is on a host of medications including prozac, trazadone, mobic States serious problems with pain . Hard time getting up, hard time getting out of bed States years of pain. 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 Exercise almaguer- not on exercise regime, feels pain has really slowed me down . Sleep at night is awful . Had trouble staying at night, takes trazadone at night sometimes. + brain fog + fatigue + feels diffuse tingling in her body. GI almaguer is ok. No rashes. Does not feel she knows any ways that make her feel well. Disease History Patient-Entered Data RAPID 3 Oneal Activities of Daily Living 12/14/2022 2:55 AM 11/07/2022 10:03 AM Dress self? Without ANY difficulty With SOME difficulty Get in and out of bed? With SOME difficulty With SOME difficulty Walk outdoors? Without ANY difficulty Without ANY difficulty Wash and dry body? Without ANY difficulty Without ANY difficulty Get in and out of car? With SOME difficulty With SOME difficulty RAPID 3 Disease Activity Weighed Score Levels: 0 - 1: Near Remission 1.3 - 2.0: Low Severity 2.3 - 4.0: Moderate Severity 4.3 - 10.0: High Severity RAPID-3 Weighed Score 11/07/2022 12/14/2022 RAPID 3 Weighed Score 4.56 (High Severity (HS)) 3.67 (Moderate Severity (MS)) RAPID-3 12/14/2022 Weighed Score Percentage Change Compared to Last Score -19.52 % PROMIS Assessments PROMIS Global Health - (T-Scores - the mean of general population = 50. Five points is a clinically meaningful difference.) 11/07/2022 Physical T-Score 34.9 Mental T-Score 28.4 PROMIS CAT Pain Interference 11/07/2022 12/14/2022 PROMIS Pain Interference T-Score (range: 10 - 90) 67 (moderate) 64 (moderate) PROMIS Pain Interference Percentile 4 % 8 % PROMIS CAT Fatigue 11/07/2022 12/14/2022 PROMIS Fatigue T-Score 72 (severe) 76 (severe) PROMIS Fatigue Percentile 1 % 0 % PROMIS PHYSICAL FUNCTION T-SCORE 11/07/2022 12/14/2022 PROMIS Physical Function T-Score 37 (moderate dysfunction) 35 (moderate dysfunction) Physical Function Percentile 10 % 7 % PAIN EVALUATION 12/14/2022 0251 12/14/2022 1301 Pain Level: 4 3 Pain Location: Other: See Comment Generalized Description: Aching;Burning;Dull;Sore;Stiffnes s;Throbbing;Tightness;Tingling Aching;Dull Duration Amount of Time: 12 2 Duration Units: Months Years Frequency: Continuous Continuous Intervention/Comfort measure: Medication;Heat;Massage Medication;Heat Comments: Pain usually never drops below a 3, usually never higher than a 7. Pain in joints/neck, shoulders, back, hips -- Treatment History Relevant Previous Investigations CBC Latest Ref Rng AND Units 02/28/2022 WBC 3.70 - 11.00 k/uL 8.49 HEMOGLOBIN 11.5 - 15.5 g/dL 13.4 HEMATOCRIT 36.0 - 46.0 % 39.2 PLATELETS 150 - 400 k/uL 301 ABS NEUT (ANC) 1.45 - 7.50 k/uL 5.37 ABS LYMPH 1.00 - 4.00 k/uL 2.60 CMP Latest Ref Rng AND Units 02/28/2022 SODIUM 136 - 144 mmol/L 142 POTASSIUM 3.7 - 5.1 mmol/L 3.8 CHLORIDE 97 - 105 mmol/L 106(H) CO2 22 - 30 mmol/L 27 GLUCOSE 74 - 99 mg/dL 111(H) BUN 7 - 21 mg/dL 12 CREATININE 0.58 - 0.96 mg/dL 0.78 CALCIUM, TOTAL 8.5 - 10.2 mg/dL 9.0 AST 13 - 35 U/L 19 ALT 7 - 38 U/L 12 ALKALINE PHOSPHATASE 34 - 123 U/L 102 Urinalysis Latest Ref Rng AND Units 02/28/2022 PROTEIN, URINE Negative Negative RBC, URINE 0-3 /HPF 0-3 /HPF Imaging / Studies Last XR Hand/Finger - Impression Only No resulted procedures found. Last MRI Hand - Impression Only No resulted procedures found. Last XR Chest - Impression Only No resulted procedures found. Last XR Cervical Spine - Impression Only No resulted procedures found. Review of Systems Review of Systems CONSTITUTION: Negative for: Fever and Recent weight change HEENT: Negative for: Nosebleeds, Mouth sores, Trouble swallowing and Dry mouth RESPIRATORY: Negative for: Cough, Shortness of breath and Pain with breathing GASTROINTESTINAL: Negative for: Melena, Diarrhea, Heartburn and Abdominal pain MUSCULOSKELETAL: Positive for: Arthralgias, Myalgias, Muscle weakness, Joint swelling and Morning Joint Stiffness NEUROLOGICAL: Positive for: Numbness and Memory loss SKIN: Negative for: Rash, Skin changes, Hair loss and Nail changes EYES: Negative (more content not included)... [facility] 12-14-2022 History of Present illness Narrative Images from the original note were not included. Rheumatology CONSULTATION Referring Provider: Self Date of Service: 12/14/2022 Gender: female Ethnicity: White Age: [age] year old Chief Complaint: Consult Last Rheumatology visit: None at [facility] Sheila Malik is a 17 year old White female who presents on 12/14/2022 for in person visit for evaluation of Consult. She is currently taking meloxicam. HISTORY OF PRESENT ILLNESS Consult of widespread pain. INTERVAL HISTORY Referred for joint pain . Patient is on a host of medications including prozac, trazadone, mobic States serious problems with pain . Hard time getting up, hard time getting out of bed States years of pain. 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 Exercise almaguer- not on exercise regime, feels pain has really slowed me down . Sleep at night is awful . Had trouble staying at night, takes trazadone at night sometimes. + brain fog + fatigue + feels diffuse tingling in her body. GI almaguer is ok. No rashes. Does not feel she knows any ways that make her feel well. Disease History Patient-Entered Data RAPID 3 Oneal Activities of Daily Living 12/14/2022 2:55 AM 11/07/2022 10:03 AM Dress self? Without ANY difficulty With SOME difficulty Get in and out of bed? With SOME difficulty With SOME difficulty Walk outdoors? Without ANY difficulty Without ANY difficulty Wash and dry body? Without ANY difficulty Without ANY difficulty Get in and out of car? With SOME difficulty With SOME difficulty RAPID 3 Disease Activity Weighed Score Levels: 0 - 1: Near Remission 1.3 - 2.0: Low Severity 2.3 - 4.0: Moderate Severity 4.3 - 10.0: High Severity RAPID-3 Weighed Score 11/07/2022 12/14/2022 RAPID 3 Weighed Score 4.56 (High Severity (HS)) 3.67 (Moderate Severity (MS)) RAPID-3 12/14/2022 Weighed Score Percentage Change Compared to Last Score -19.52 % PROMIS Assessments PROMIS Global Health - (T-Scores - the mean of general population = 50. Five points is a clinically meaningful difference.) 11/07/2022 Physical T-Score 34.9 Mental T-Score 28.4 PROMIS CAT Pain Interference 11/07/2022 12/14/2022 PROMIS Pain Interference T-Score (range: 10 - 90) 67 (moderate) 64 (moderate) PROMIS Pain Interference Percentile 4 % 8 % PROMIS CAT Fatigue 11/07/2022 12/14/2022 PROMIS Fatigue T-Score 72 (severe) 76 (severe) PROMIS Fatigue Percentile 1 % 0 % PROMIS PHYSICAL FUNCTION T-SCORE 11/07/2022 12/14/2022 PROMIS Physical Function T-Score 37 (moderate dysfunction) 35 (moderate dysfunction) Physical Function Percentile 10 % 7 % PAIN EVALUATION 12/14/2022 0251 12/14/2022 1301 Pain Level: 4 3 Pain Location: Other: See Comment Generalized Description: Aching;Burning;Dull;Sore;Stiffnes s;Throbbing;Tightness;Tingling Aching;Dull Duration Amount of Time: 12 2 Duration Units: Months Years Frequency: Continuous Continuous Intervention/Comfort measure: Medication;Heat;Massage Medication;Heat Comments: Pain usually never drops below a 3, usually never higher than a 7. Pain in joints/neck, shoulders, back, hips -- Treatment History Relevant Previous Investigations CBC Latest Ref Rng & Units 02/28/2022 WBC 3.70 - 11.00 k/uL 8.49 HEMOGLOBIN 11.5 - 15.5 g/dL 13.4 HEMATOCRIT 36.0 - 46.0 % 39.2 PLATELETS 150 - 400 k/uL 301 ABS NEUT (ANC) 1.45 - 7.50 k/uL 5.37 ABS LYMPH 1.00 - 4.00 k/uL 2.60 CMP Latest Ref Rng & Units 02/28/2022 SODIUM 136 - 144 mmol/L 142 POTASSIUM 3.7 - 5.1 mmol/L 3.8 CHLORIDE 97 - 105 mmol/L 106(H) CO2 22 - 30 mmol/L 27 GLUCOSE 74 - 99 mg/dL 111(H) BUN 7 - 21 mg/dL 12 CREATININE 0.58 - 0.96 mg/dL 0.78 CALCIUM, TOTAL 8.5 - 10.2 mg/dL 9.0 AST 13 - 35 U/L 19 ALT 7 - 38 U/L 12 ALKALINE PHOSPHATASE 34 - 123 U/L 102 Urinalysis Latest Ref Rng & Units 02/28/2022 PROTEIN, URINE Negative Negative RBC, URINE 0-3 /HPF 0-3 /HPF Imaging / Studies Last XR Hand/Finger - Impression Only No resulted procedures found. Last MRI Hand - Impression Only No resulted procedures found. Last XR Chest - Impression Only No resulted procedures found. Last XR Cervical Spine - Impression Only No resulted procedures found. Review of Systems Review of Systems CONSTITUTION: Negative for: Fever and Recent weight change HEENT: Negative for: Nosebleeds, Mouth sores, Trouble swallowing and Dry mouth RESPIRATORY: Negative for: Cough, Shortness of breath and Pain with breathing GASTROINTESTINAL: Negative for: Melena, Diarrhea, Heartburn and Abdominal pain MUSCULOSKELETAL: Positive for: Arthralgias, Myalgias, Muscle weakness, Joint swelling and Morning Joint Stiffness NEUROLOGICAL: Positive for: Numbness and Memory loss SKIN: Negative for: Rash, Skin changes, Hair loss and Nail changes EYES: Negative for: Eye pain, Eye redness, Eye dryness and visual disturbance CARDIOVASCULAR: Negative for: Chest pain and Leg swelling GENITOURINARY: Negative for: Dysuria and Hematuria HEMATOLOGIC/LYMPHATIC: Negative for: Swollen glandsAll other reviewed and negative other than HPI. Problem List There is no problem list on file for this patient. Past Medical History PAST MEDICAL HISTORY Diagnosis Date Anxiety state Depression Past Surgical History No past surgical history on file. Family History FAMILY HISTORY Problem Relation Age of Onset Hypertension Mother COPD Mother Social History Social History Tobacco Use Smoking status: Never Smokeless tobacco: Never Vaping Use Vaping Use: Never used Substance Use Topics Alcohol use: Never Drug use: Never Medications Current Outpatient Medications Medication Sig propranolol HCl (PROPRANOLOL ORAL) Take 10 mg by mouth as needed. FLUoxetine (PROZAC) 20 mg capsule Take 20 mg by mouth once daily. ARIPiprazole (ABILIFY) 5 mg tablet Take 5 mg by mouth once daily. 4 mg once daily traZODone (DESYREL) 100 mg tablet Take by mouth. meloxicam (MOBIC) 15 mg tablet Take 1 tablet by mouth once daily. No current facility-administered medications for this visit. Physical Exam BP 107/58 Pulse 79 Ht 5' 3 (1.60m) Wt 269 lb 9.6 oz (122.3kg) LMP 12/06/2022 BMI 47.77 kg/(m^2). Physical Exam Vitals and nursing note reviewed. Constitutional: Appearance: Normal appearance. HENT: Head: Normocephalic. Cardiovascular: Rate and Rhythm: Normal rate. Pulses: Normal pulses. Pulmonary: Effort: Pulmonary effort is normal. Musculoskeletal: General: Tenderness present. No swelling. Cervical back: Normal range of motion. Right lower leg: Edema present. Left lower leg: Edema present. Comments: diffuse widespread tenderpoints Skin: General: Skin is warm and dry. Neurological: General: No focal deficit present. Mental Status: She is alert. Mental status is at baseline. Motor: No weakness. There is currently no information documented on the homunculus. Go to the Rheumatology activity and complete the homunculus joint exam. Joint Exam 12/14/2022 No joint exam has been documented for this visit Impression Diagnoses: (M79.7) Fibromyalgia (primary encounter diagnosis) active mod-severe FMS Plan (M79.7) Fibromyalgia (primary encounter diagnosis) Comment: Exam and history are consistent with Fibromyalgia We will screen for inflammatory issues as this is concern for pt, We discussed FMS in depth She is working with mental health CORN POPPER and is on treatment. Will consult to chronic pain recovery Fibromyalgia is a is a medical disorder characterized by chronic widespread pain and allodynia, a heightened and painful response to pressure . The cornerstones of therapy for this are optimal sleep, regular aerobic exercise (stationary bike, pool therapy) and optimal treatment of depression. Optimal quality sleep (especially deep sleep - phase 3/4 NREM) is important to achieve. If sleep remains disturbed, there might need to have a sleep study to identify a primary sleep disorder that might need concomitant treatment. We also recommend relaxation techniques such as yoga or biofeedback to help deal better with stress. We emphasize that all the three aspects of the treatment (sleep, exercise, depression) be adressed simultaneously for maximum benefit and effective treatment of this condition. Doing one or the other will result in less than an optimal response to treatment. Plan: RHEUMATOID FACTOR BL, CCP ANTIBODY IGG, SED RATE WESTERGREN, C-REACTIVE PROTEIN (CRP), CONSULT TO [facility] (CHRONIC PAIN) Return if symptoms worsen or fail to improve. Consultation requested by Dr. Carl for an opinion regarding myalgia and my final recommendations will be communicated back to the requesting physician by way of shared medical record or letter by US mail. I spent a total of 30 minutes on the date of the service which included preparing to see the patient, [id number] patient care, completing clinical documentation, obtaining and/or reviewing separately obtained history, performing a medically appropriate examination, and counseling and educating the patient/family/caregiver. Tatiana Caruso APRN.LETTERPRESS SETTER cc: PCP: Carolyne Grey [address] [place] [address] documented in this encounter [facility] 06-14-2022 Note HNO ID: [id number] Author: Genevieve Lindsey Ma Service: ? Author Type: ? Type: Progress Notes Filed: 06/14/2022 12:32 PM Note Text: PT ASSESSMENT - CASTING ROOM Sheila presents for Application of brace. Applied Ulnar abutment wrap to Right wrist Patient has been instructed in Care and proper application of brace.. Genevieve Lindsey Ma [facility] 06-14-2022 Note HNO ID: [id number] Author: Emani Abdi MD Service: ? Author Type: Physician Type: Progress Notes Filed: 06/14/2022 12:32 PM Note Text: Emani Abdi MD Department of Orthopaedics Orthopaedics [address] [facility] [address] Dept: [phone] Dept June 14, 2022 CHIEF COMPLAINT: New and Pain of the Right Wrist and Referred by Miguelina BEACH Patient here today for right wrist pain. States it has been on and off for over a year. No specific injury. States her pain is on the lateral aspect. Taking Naproxen for the pain and helps some. Has been wearing a cock up wrist splint and states it makes her wrist sore when she wears it. Patient is right hand dominant. 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 We will try little bit of a ulnar abutment brace and anti-inflammatory maybe topical on occasion. May consider cortisone injection as well at some point. FOLLOW UP INSTRUCTIONS: As needed Ms. Sheila Malik was advised as to contrast therapies and/or to take analgesics/anti-inflammatories as needed and all contraindications were reviewed. OBJECTIVE: Ms. Sheila Malik is a pleasant 17 year old in no apparent distress. Gen:There were no vitals taken for this visit. nl development, morbidly obese , no deformities ENT: Normocephalic, normal hearing, moist mucosa CV: Pulses:Radial= 2+ and symmetric, capillary refill < 2 secs, no peripheral edema/varicosities Skin: no rash, bruising or lesions. Good turgor. Psych: cooperative and appropriate, alert and oriented x 3, good mood and affect. Musculoskeletal: No obvious swelling about the wrist. Good range of motion overall with flexion, extension and pronation and supination. No pain at the DRUJ. She did have a little bit of tenderness in the ulnar-sided fossa but her pain she described was more along where the FCU is, not particularly tender around the tendon however. IMAGING: IMPRESSION: No acute radiographic abnormalities seen in the right wrist. Principal Technical Specialist: VIOLETTA Transcribe Date/Time: May 14 2022 5:02P Dictated by : ERICA HOWARD MD This examination was interpreted and the report reviewed and electronically signed by: ERICA HOWARD MD on May 14 2022 5:04PM EST Results-Findings * * *Final Report* * * DATE OF EXAM: May 14 2022 4:59PM WOX [id number] - XR WRIST 3V PA/LAT/OBL RT / PROCEDURE REASON: Right wrist pain * * * * Physician Interpretation * * * * EXAM TITLE: XR WRIST 3V PA/LAT/OBL RT EXAM DATE/TIME: 05/14/2022 4:59 PM COMPARISON: None. CLINICAL INDICATION/HISTORY: Wrist pain. TECHNIQUE: PA, lateral and oblique views of right wrist are presented. FINDINGS: No acute fractures or subluxations are noted. The joint spaces are well preserved. Questionable negative ulnar variance. The mineralization of the bones is normal. There is no significant soft tissue swelling. Supporting Subjective Information Below: Past Medical History: PAST MEDICAL HISTORY Diagnosis Date Anxiety state Depression Past Surgical History: History reviewed. No pertinent surgical history. Family History: FAMILY HISTORY Problem Relation Age of Onset Hypertension Mother COPD Mother Social History: Social History Tobacco Use Smoking status: Never Smokeless tobacco: Never Vaping Use Vaping Use: Never used Substance Use Topics Alcohol use: Never Drug use: Never Medications: Current Outpatient Medications Medication Sig venlafaxine ER (EFFEXOR XR) 37.5 mg 24 hr capsule Take 37.5 mg by mouth once daily. naproxen (NAPROSYN) 500 mg tablet Take 1 tablet by mouth twice daily with meals. sertraline (ZOLOFT) 50 mg tablet 50 mg. ARIPiprazole (ABILIFY) 5 mg tablet Take 5 mg by mouth once daily. (Patient not taking: Reported on 06/14/2022) HYDROcodone-acetaminophen (NORCO) 5-325 mg per tablet Take by mouth. (Patient not taking: Reported on 05/14/2022) ondansetron orally disintegrating (ZOFRAN ODT) 4 mg disintegrating tablet Take by mouth. (Patient not taking: Reported on 05/14/2022) traZODone (DESYREL) 100 mg tablet Take by mouth. (Patient not taking: Reported on 06/14/2022) pantoprazole DR (PROTONIX) 40 mg tablet Take 1 tablet by mouth once daily. (Patient not taking: Reported on 06/14/2022) No current facility-administered medications for this visit. Allergies: Wellbutrin [Bupropion] ROS: General (negative for fatigue, malaise, weight loss/gain) HEENT (negative for headache, earache, recent vision changes, sinus pain, sore throat) Respiratory (no recent shortness of breath, hemoptysis) CV (negativ (more content not included)... [facility] 06-14-2022 History of Present illness Narrative PT ASSESSMENT - CASTING ROOM Sheila presents for Application of brace. Applied Ulnar abutment wrap to Right wrist Patient has been instructed in Care and proper application of brace.. Genevieve Lindsey Ma Emani Abdi MD Department of Orthopaedics Orthopaedics [address] [facility] [address] Dept: [phone] Dept June 14, 2022 CHIEF COMPLAINT: New and Pain of the Right Wrist and Referred by Miguelina BEACH Patient here today for right wrist pain. States it has been on and off for over a year. No specific injury. States her pain is on the lateral aspect. Taking Naproxen for the pain and helps some. Has been wearing a cock up wrist splint and states it makes her wrist sore when she wears it. Patient is right hand dominant. 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 We will try little bit of a ulnar abutment brace and anti-inflammatory maybe topical on occasion. May consider cortisone injection as well at some point. FOLLOW UP INSTRUCTIONS: As needed Ms. Sheila Malik was advised as to contrast therapies and/or to take analgesics/anti-inflammatories as needed and all contraindications were reviewed. OBJECTIVE: Ms. Sheila Malik is a pleasant 17 year old in no apparent distress. Gen:There were no vitals taken for this visit. nl development, morbidly obese , no deformities ENT: Normocephalic, normal hearing, moist mucosa CV: Pulses:Radial= 2+ and symmetric, capillary refill < 2 secs, no peripheral edema/varicosities Skin: no rash, bruising or lesions. Good turgor. Psych: cooperative and appropriate, alert and oriented x 3, good mood and affect. Musculoskeletal: No obvious swelling about the wrist. Good range of motion overall with flexion, extension and pronation and supination. No pain at the DRUJ. She did have a little bit of tenderness in the ulnar-sided fossa but her pain she described was more along where the FCU is, not particularly tender around the tendon however. IMAGING: IMPRESSION: No acute radiographic abnormalities seen in the right wrist. Principal Technical Specialist: PSCB Transcribe Date/Time: May 14 2022 5:02P Dictated by : ERICA HOWARD MD This examination was interpreted and the report reviewed and electronically signed by: ERICA HOWARD MD on May 14 2022 5:04PM EST Results-Findings * * *Final Report* * * DATE OF EXAM: May 14 2022 4:59PM WOX [id number] - XR WRIST 3V PA/LAT/OBL RT / PROCEDURE REASON: Right wrist pain * * * * Physician Interpretation * * * * EXAM TITLE: XR WRIST 3V PA/LAT/OBL RT EXAM DATE/TIME: 05/14/2022 4:59 PM COMPARISON: None. CLINICAL INDICATION/HISTORY: Wrist pain. TECHNIQUE: PA, lateral and oblique views of right wrist are presented. FINDINGS: No acute fractures or subluxations are noted. The joint spaces are well preserved. Questionable negative ulnar variance. The mineralization of the bones is normal. There is no significant soft tissue swelling. Supporting Subjective Information Below: Past Medical History: PAST MEDICAL HISTORY Diagnosis Date Anxiety state Depression Past Surgical History: History reviewed. No pertinent surgical history. Family History: FAMILY HISTORY Problem Relation Age of Onset Hypertension Mother COPD Mother Social History: Social History Tobacco Use Smoking status: Never Smokeless tobacco: Never Vaping Use Vaping Use: Never used Substance Use Topics Alcohol use: Never Drug use: Never Medications: Current Outpatient Medications Medication Sig venlafaxine ER (EFFEXOR XR) 37.5 mg 24 hr capsule Take 37.5 mg by mouth once daily. naproxen (NAPROSYN) 500 mg tablet Take 1 tablet by mouth twice daily with meals. sertraline (ZOLOFT) 50 mg tablet 50 mg. ARIPiprazole (ABILIFY) 5 mg tablet Take 5 mg by mouth once daily. (Patient not taking: Reported on 06/14/2022) HYDROcodone-acetaminophen (NORCO) 5-325 mg per tablet Take by mouth. (Patient not taking: Reported on 05/14/2022) ondansetron orally disintegrating (ZOFRAN ODT) 4 mg disintegrating tablet Take by mouth. (Patient not taking: Reported on 05/14/2022) traZODone (DESYREL) 100 mg tablet Take by mouth. (Patient not taking: Reported on 06/14/2022) pantoprazole DR (PROTONIX) 40 mg tablet Take 1 tablet by mouth once daily. (Patient not taking: Reported on 06/14/2022) No current facility-administered medications for this visit. Allergies: Wellbutrin [Bupropion] ROS: General (negative for fatigue, malaise, weight loss/gain) HEENT (negative for headache, earache, recent vision changes, sinus pain, sore throat) Respiratory (no recent shortness of breath, hemoptysis) CV (negative for chest tightness, palpitations) Musculoskeletal (see HPI) Psych (no depression, anxiety) REFERRING PHYSICIAN: Consultation requested by MONICA Shah for an opinion regarding Wrist pain. My final recommendations will be communicated back to the requesting physician by way of shared Medical record or letter to requesting physician via US mail. Miguelina Corona [address] [facility] [address] [facility] [address] [facility] [address] Emani Abdi MD documented in this encounter [facility] 05-24-2022 Note HNO ID: [id number] Author: Jamaal Funez Service: ? Author Type: ? Type: Progress Notes Filed: 05/24/2022 1:31 PM Note Text: POPULATION HEALTH NAVIGATION OUTREACH Action/FYI Pt scheduled Pt identified by name and : YES, via phone Outreach Outcome/Action Spoke to patient or caregiver: Patient scheduled Did you use a PCP flex slot to schedule this appointment? No Reason for Outreach Care Gap or Scheduling/Wellness visits Payer: Payor: [employer] MEDICAID / Plan: [employer] MEDICAID / Product Type: Medicaid / Care Gap Reviewed:: Specialty Scheduling Reminder: Reminder note to check Health Maintenance for items below Health Maintenance items due: HEPATITIS B(1 of 3 - 3-dose series) Never done MENINGOCOCCAL B: Consider based on risk(1 of 2 - Risk Bexsero 2-dose series) Never done HPV VACCINE(1 - 2-dose series) Never done GC (GONORRHEA) SCREENING (18-24) Never done HEPATITIS C SCREENING Never done HIV SCREENING Never done CHLAMYDIA SCREENING (18-24) Never done DEPRESSION ASSESSMENT Never done COVID-19 VACCINE(4 - Booster for Pfizer series) due on 08/17/2021 DTAP,TDAP,TD(1 - Tdap) Never done INFLUENZA(1) due on 02/22/2022 Message Sent to Practice: No Navigation Signature: Jamaal Funez May 24, 2022 1:31 PM [facility] 05-24-2022 Note Patient Outreach (AC CC) SHEILA MALIK ([id number]) 1 F Date Time Provider Department 05/24/22 PCP (HISTORICAL) [facility] During your visit today, we recorded the following information about you: Jamaal Funez 05/24/2022 1:31 PM Signed POPULATION HEALTH NAVIGATION OUTREACH Action/FYI Pt scheduled Pt identified by name and : YES, via phone Outreach Outcome/Action Spoke to patient or caregiver: Patient scheduled Did you use a PCP flex slot to schedule this appointment? No Reason for Outreach Care Gap or Scheduling/Wellness visits Payer: Payor: [facility] MEDICAID / Plan: [facility] MEDICAID / Product Type: Medicaid / Care Gap Reviewed:: Specialty Scheduling Reminder: Reminder note to check Health Maintenance for items below Health Maintenance items due: HEPATITIS B(1 of 3 - 3-dose series) Never done MENINGOCOCCAL B: Consider based on risk(1 of 2 - Risk Bexsero 2-dose series) Never done HPV VACCINE(1 - 2-dose series) Never done GC (GONORRHEA) SCREENING (18-24) Never done HEPATITIS C SCREENING Never done HIV SCREENING Never done CHLAMYDIA SCREENING (18-24) Never done DEPRESSION ASSESSMENT Never done COVID-19 VACCINE(4 - Booster for Pfizer series) due on 08/17/2021 DTAP,TDAP,TD(1 - Tdap) Never done INFLUENZA(1) due on 02/22/2022 Message Sent to Practice: No Navigation Signature: Jamaal Funez May 24, 2022 1:31 PM Allergies As of Date: 05/24/2022 (No Known Allergies) Date Reviewed: 05/14/2022 Reviewed by: Sandra Lemos MA - Fully Assessed Prescriptions as of 05/24/2022 - naproxen (NAPROSYN) 500 mg tablet Take 1 tablet by mouth twice daily with meals. - sertraline (ZOLOFT) 50 mg tablet 50 mg. - ARIPiprazole (ABILIFY) 5 mg tablet Take 5 mg by mouth once daily. - HYDROcodone-acetaminophen (NORCO) 5-325 mg per tablet Take by mouth. - ondansetron orally disintegrating (ZOFRAN ODT) 4 mg disintegrating tablet Take by mouth. - traZODone (DESYREL) 100 mg tablet Take by mouth. - pantoprazole DR (PROTONIX) 40 mg tablet Take 1 tablet by mouth once daily. Problem List As Of Date: 05/24/2022 (None) Encounter Status:Closed by JAMAAL FUNEZ on 05/24/22 [facility] 05-24-2022 History of Present illness Narrative POPULATION HEALTH NAVIGATION OUTREACH Action/FYI Pt scheduled Pt identified by name and : YES, via phone Outreach Outcome/Action Spoke to patient or caregiver: Patient scheduled Did you use a PCP flex slot to schedule this appointment? No Reason for Outreach Care Gap or Scheduling/Wellness visits Payer: Payor: [facility] MEDICAID / [facility]: [facility] / Product Type: Medicaid / Care Gap Reviewed:: Specialty Scheduling Reminder: Reminder note to check Health Maintenance for items below Health Maintenance items due: HEPATITIS B(1 of 3 - 3-dose series) Never done MENINGOCOCCAL B: Consider based on risk(1 of 2 - Risk Bexsero 2-dose series) Never done HPV VACCINE(1 - 2-dose series) Never done GC (GONORRHEA) SCREENING (18-24) Never done HEPATITIS C SCREENING Never done HIV SCREENING Never done CHLAMYDIA SCREENING (18-24) Never done DEPRESSION ASSESSMENT Never done COVID-19 VACCINE(4 - Booster for Pfizer series) due on 08/17/2021 DTAP,TDAP,TD(1 - Tdap) Never done INFLUENZA(1) due on 02/22/2022 Message Sent to Practice: No Navigation Signature: Jamaal Funez May 24, 2022 1:31 PM documented in this encounter [facility] 05-14-2022 Note HNO ID: [id number] Author: RT Dwight(R) Service: Nuclear Medicine Author Type: Technologist Type: Progress Notes Filed: 05/14/2022 5:01 PM Note Text: Radiology Service Progress Note PATIENT NAME: Sheila Malik DATE OF SERVICE: May 14, 2022 TIME4:50 PM PATIENT IDENTITY VERIFICATION COMPLETED USING TWO (2) IDENTIFIERS: Name and Date of confirmed by patient verbally. FALL SCREENING: Has the patient had 2 falls in the last year or 1 fall with injury or currently using an Ambulatory Assistive Device (Walker, Cane, Wheelchair, Crutches, etc.)? No PATIENT GENDER DATA: Female. status: : No status: NO. PATIENT RELEVANT IMPLANT DATA REVIEWED: Not Applicable RADIOLOGY DEPARTMENT: General X-ray: Exam(s) Completed: Upper Extremity X-Ray(s): Wrist, right PERIPHERAL IV DATA: Not applicable SIGNED BY: Jenny Cazares RT(R) May 14, 2022 5:00 PM [facility] 05-14-2022 Note HNO ID: [id number] Author: Miguelina Corona PA-C Service: ? Author Type: Physician Film And Video Editor Type: Progress Notes Filed: 05/14/2022 8:39 PM Note Text: Subjective HPI HPI Sheila Malik is a 17 year old female who presents today for CC of R ulnar aspect of wrist. Has been bothering her for a year, but got much worse about 1 week ago. Intermittently swollen, worse when she doesn't ice or use heat on it. 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 Notes that it's typically 4/10 on the pain scale but becomes ~7/10 on the pain scale. Was seen at [facility] on Saturday, and they said they will be able to get an XR today but weren't able to for some reason or another. Pt has tried nothing thus far. BP 106/64 Pulse 91 Temp 36.6 ?C (97.8 ?F) Resp 18 Wt 114.9 kg (253 lb 3.2 oz) SpO2 99% BMI 44.85 kg/m? ALLERGIES No Known Allergies There is no problem list on file for this patient. No family history on file. Social History Tobacco Use Smoking status: Never Smokeless tobacco: Never Vaping Use Vaping Use: Never used Substance Use Topics Alcohol use: Never Drug use: Never Review of Systems Constitutional: Negative for chills, fever and malaise/fatigue. Musculoskeletal: Positive for joint pain. Negative for falls. Skin: Negative for rash. Objective BP 106/64 Pulse 91 Temp 36.6 ?C (97.8 ?F) Resp 18 Wt 114.9 kg (253 lb 3.2 oz) SpO2 99% BMI 44.85 kg/m? Physical Exam Musculoskeletal: Right wrist: Tenderness present. No swelling, deformity or effusion. Normal range of motion. Hands: Comments: Tenderness overlying tendon ulnar aspect. No ecchymosis, erythema, or overlying skin changes. Full ROM. ASSESSMENT/PLAN: 1. Right wrist pain - ICD9: 719.43, ICD10: M25.531 Suspect tendonitis/over use injury XR obtained which was negative for acute fracture/dislocation/acute bony abnormality. RICE therapy advised. Wrist brace given. Pain control addressed; also discussed alternative for topical application with diclofenac/voltaren gel OTC. - XR WRIST GENERAL 3V PA/LAT/OBL RIGHT - CONSULT TO ORTHOPAEDICS Pt advised to see orthopedics if symptoms persist or progress (consult placed--see orders). Reviewed red flags with patient and when to seek care sooner. The patient indicates understanding of these issues and agrees with the plan. Miguelina Corona PA-C [facility] 05-14-2022 Instructions Miguelina Corona PA-C - 05/14/2022 5:24 PM EST R.I.C.E. The general care of your injury includes the following: Resting, Icing, Compressing and Elevating the injured area. Remember this as RICE. REST: Limit the use of the injured body part. ICE: By applying ice to the affected area, swelling and pain can be reduced. Place some ice cubes in a re-sealable (Ziploc) bag and add some water. Put a thin washcloth between the bag and your skin. Apply the ice bag to the area for at least 20 minutes. Do this at least 4 times per day. Using the ice for longer times and more frequently is OK. NEVER APPLY ICE DIRECTLY TO THE SKIN. COMPRESS: Compression means to apply pressure around the injured area such as with a splint, cast or an diogenes bandage. Compression decreases swelling and improves comfort. Compression should be tight enough to relieve swelling but not so tight as to decrease circulation. Increasing pain, numbness, tingling, or change in skin color, are all signs of decreased circulation. ELEVATE: Elevate the injured part. For example, elevate your foot by placing it on a chair while sitting, or propping it up on pillows when lying down. documented in this encounter [facility] 05-14-2022 History of Present illness Narrative Images from the original note were not included. Subjective HPI HPI Sheila Malik is a 17 year old female who presents today for CC of R ulnar aspect of wrist. Has been bothering her for a year, but got much worse about 1 week ago. Intermittently swollen, worse when she doesn't ice or use heat on it. 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 Notes that it's typically 4/10 on the pain scale but becomes ~7/10 on the pain scale. Was seen at [facility] on Saturday, and they said they will be able to get an XR today but weren't able to for some reason or another. Pt has tried nothing thus far. BP 106/64 Pulse 91 Temp 36.6 C (97.8 F) Resp 18 Wt 114.9 kg (253 lb 3.2 oz) SpO2 99% BMI 44.85 kg/m ALLERGIES No Known Allergies There is no problem list on file for this patient. No family history on file. Social History Tobacco Use Smoking status: Never Smokeless tobacco: Never Vaping Use Vaping Use: Never used Substance Use Topics Alcohol use: Never Drug use: Never Review of Systems Constitutional: Negative for chills, fever and malaise/fatigue. Musculoskeletal: Positive for joint pain. Negative for falls. Skin: Negative for rash. Objective BP 106/64 Pulse 91 Temp 36.6 C (97.8 F) Resp 18 Wt 114.9 kg (253 lb 3.2 oz) SpO2 99% BMI 44.85 kg/m Physical Exam Musculoskeletal: Right wrist: Tenderness present. No swelling, deformity or effusion. Normal range of motion. Hands: Comments: Tenderness overlying tendon ulnar aspect. No ecchymosis, erythema, or overlying skin changes. Full ROM. ASSESSMENT/PLAN: 1. Right wrist pain - ICD9: 719.43, ICD10: M25.531 Suspect tendonitis/over use injury XR obtained which was negative for acute fracture/dislocation/acute bony abnormality. RICE therapy advised. Wrist brace given. Pain control addressed; also discussed alternative for topical application with diclofenac/voltaren gel OTC. - XR WRIST GENERAL 3V PA/LAT/OBL RIGHT - CONSULT TO ORTHOPAEDICS Pt advised to see orthopedics if symptoms persist or progress (consult placed--see orders). Reviewed red flags with patient and when to seek care sooner. The patient indicates understanding of these issues and agrees with the plan. 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 [facility] Diagnosis Fibromyalgia- Primary Mylagia and myositis, unspecified documented in this encounter [facility] Summary Purpose Family History No Family History Records FoundNo Family History Records FoundNo Family History Records FoundNo Family History Records Found Advance Directives No Advanced Directives Records FoundNo Advanced Directives Records FoundNo Advanced Directives Records FoundNo Advanced Directives Records Found Reason for Referral Specialty Diagnoses / Procedures Referred By Adeel triana Referred To Contact Orthopedics Diagnoses Right wrist pain Procedures CONSULT TO ORTHOPAEDICS OFFICE/OUTPATIENT [facility] 60-74 MINUTES Miguelina Corona PA-C [address] [place] [address] Referral ID Status Reason Start Date Expiration Date Visits Requested Visits Authorized [id number] Authorized PCP Requested Referral 2 05/14/2023 1 1 Specialty Diagnoses / Procedures Referred By Adeel triana Referred To Contact XR IMAGING Diagnoses Right wrist pain Procedures XR WRIST GENERAL 3V PA/LAT/OBL RIGHT RADEX WRIST COMPLETE MINIMUM 3 VIEWS Miguelina Corona PA-C [address] [place] [address] Xr Imaging Referral ID Status Reason Start Date Expiration Date V isits Requested Visits Authorized [id number] Closed Auto-Generate d Referral 05/14/2022 06/13/2023 1 1 Specialty Diagnoses / Procedures Referred By Contac t Referred To Contact [facility] Diagnoses Fibromyalgia Procedures [facility] TO [facility] ([facility]IN) OFFICE/OUTPATIENT NEW HIGH MDM 60-74 MINUTES Tatiana Caruso, PLANIMETER OPERATOR.LETTERPRESS SETTER [address] [place] [address] Referral ID Status Reason Start Date Expiration Date Visits Requested Visits Authorized [id number] Pending Review PCP Requested Referral 12/14/2022 12/14/2023 1 1 Additional Source Comments INFORMATION SOURCE (unrecogn ized section and content) DATE CREATED AUTHOR AUTHOR'S ORGANIZ ATION 03/02/2022 [facility] DATE CREATED AUTHOR AUTHOR'S ORGANIZ ATION 12/17/2022 [facility] DATE CREATED AUTHOR AUTHOR'S ORGANIZ ATION 04/20/2023 [facility] Source Comments (unrecognize d section and content) In the event this informatio n is protected by the Federal Confidentiality of Alcohol and Drug Abuse Patient Records regulations: The Federal rules restrict any use of the information to criminally investigate or prosecute any alcohol or drug abuse patient.[facility] the event this information is protected by the Federal Confidentiality of Alcohol and Drug Abuse Patient Records regulations: The Federal rules restrict any use of the information to criminally investigate or prosecute any alcohol or drug abuse patient.[facility] the event this information is protected by the Federal Confidentiality of Alcohol and Drug Abuse Patient Records regulations: The Federal rules restrict any use of the information to criminally investigate or prosecute any alcohol or drug abuse patient.[facility] the event this information is protected by the Federal Confidentiality of Alcohol and Drug Abuse Patient Records regulations: The Federal rules restrict any use of the information to criminally investigate or prosecute any alcohol or drug abuse patient.[facility] Reason for Visit (unrecogniz ed section and content) Reason Comments New Pain Referred by Miguelina Corona Specialty Diagnoses / Procedures Referred By Adeel triana Referred To Contact Orthopedics Diagnoses Right wrist pain Procedures CONSULT TO ORTHOPAEDICS OFFICE/OUTPATIENT NEW HIGH MDM 60-74 MINUTES Miguelina Corona PA-C [address] [place] [address] Referral ID Status Reason Start Date Expiration Date V isits Requested Visits Authorized [id number] Closed PCP Requested Referral 05/14/2022 05/14/2023 1 1 Reason Comments Consult Care Teams (unrecognized sec tion and content) Office Executive Relationship Specialty Start Date End Date Clinic, [facility] [address] [place] [address] PCP - General 02/28/22 Office Executive Relationship [facility] [address] [place] [address] PCP - General 02/28/22 Office Executive Relationship Specialty Start Date End Date Carolyne Grey NP [address] [place] [address] PCP - General Family Medicine 10/10/22 FOR RECORDS PERTAINING TO PATIENTS WHO ARE OR HAVE BEEN ENROLLED IN A CHEMICAL DEPENDENCY/SUBSTANCEABUSE PROGRAM, SOME INFORMATION MAY BE OMITTED. This clinical summary was aggregated from multiple sources. Caution should be exercised in using it in the provision of clinical care. This summary normalizes information from multiple sources, and as a consequence, information in this document may materially change the coding, format and clinical context of patient data. In addition, data may be omitted in some cases. CLINICAL DECISIONS SHOULD BE BASED ON THE PRIMARY CLINICAL RECORDS. [facility] [employer] [facility]. provides no warranty or guarantee of the accuracy or completeness of information in this document.
== END 2023-08-21 05:09 | disposition home or self-care (01) ==
PROVIDERS: Emergency Provider Emergency Medicine; PCP Nurse Practitioner Family; Visit Provider Emergency Medicine
DX: H53.8 Other visual disturbances (principal); Z68.42 Body mass index [BMI] 45.0-49.9, adult; E87.6 Hypokalemia; E66.9 Obesity, unspecified
CPT/HCPCS: 80048; 84703; 85025; 99283

== ENCOUNTER 2023-08-26 13:57 | Emergency (ER) | payer MEDICAID, SELFPAY ==
[2023-08-26 13:57] VITALS: PULSE 105; RESP 18; TEMP 36.3; O2SAT 97; BMI 47.8
--- NOTE | 2023-08-26 16:43 | EDS_ITS ---
HPI History of Present Illness Chief Complaint: Headache PFSH PFS Medical History Alcohol use Asthma Borderline personality disorder Bulimia nervosa, purging type EP (ectopic ) Generalized anxiety disorder History of pain when walking Leg cramps Major depressive disorder, recurrent severe without psychotic features Marijuana use Migraine headache Non-smoker Palpitations Restless legs Shortness of breath on exertion Visit for suture removal Wears glasses Home Medications levonorgestrel 21 mcg/24 hours (8 yrs) 52 mg intrauterine device (Mirena) 1 device intrauterine ONCE 05/22/23 [History Last Taken Unknown] metoclopramide HCl 5 mg tablet (Reglan) 5 mg PO DAILY #20 tabs 08/26/23 [Rx Last Taken Unknown] Allergy/AdvReac Type Severity Reaction Status Date / Time bupropion [From Wellbutrin] Allergy Rash Verified 08/21/23 04:00 Family History Grandmother Breast cancer Cancer skin Mother Hypertension Seizures Surgical History Hx of cholecystectomy Social History household members: none Smoking Status: Never smoker alcohol intake: current details: occasionally substance use type: marijuana caffeine: Yes additional social history: Boyfriend-Vishnu EXAM Physical Exam Const Vital Signs: 08/26/23 13:57 Temperature 97.4 F L Temperature Source Temporal Pulse Rate 105 H Respiratory Rate 18 Pulse Ox 97 Oxygen Delivery Method Room Air MDM [facility] MDM Narrative Medical decision making narrative: M HISTORY OF PRESENT ILLNESS: 18 year old female presents with headache. Notes headache for few days and transient disorientation. Patient denies sudden onset or thunderclap headache, denies maximal intensity within 1 minute, vomiting, neck pain or stiffness, changes in vision, fever, history malignancy, syncope, seizures. REVIEW OF SYSTEMS: All other systems reviewed and are negative except as noted in the history of present illness. At least 10 review of systems reviewed and are negative except as noted in history of present illness. PHYSICAL EXAM: Nursing triage notes reviewed, Vital signs reviewed Constitutional: please see mdm HENT: MMM Eyes: Pupils equal round and reactive to light, Extraocular muscles intact, within the limits of ED funduscopy no obvious papilledema Neck: No stridor, no JVD, full neck ROM Lungs: Clear to auscultation, No wheezing or rales. No increased work of breathing, no conversational dyspnea, no accessory muscle use, no nasal flaring. No respiratory distress noted Heart: Regular rate and rhythm, No murmurs, No rubs and No gallops, 2+ distal pulses (radial, femoral, posterior tibial) in all extremities Abdomen: Soft, there is no tenderness, rigidity, rebound or guarding, no obvious peritoneal signs, no palpable pulsatile abdominal masses, no auscultated abdominal bruit : No CVAT Extremities: No edema Neuro: Alert and oriented x3, neuro exam at baseline, cranial nerves II through XII are intact. No pain with extraocular muscle movement. There is negative test of skew. Normal speech. 5 of 5 strength in upper and lower extremities in flexion extension. Intact sensation to light touch in upper and lower extremity dermatomes. No truncal or extremity ataxia. No dysdiadochokinesia. Normal gait. 2+ reflexes. No meningeal signs. Negative Babinski. NIH of 0 Skin: No rash or lesions noted MEDICAL DECISION MAKING: Chief Complaint: Headache External records reviewed: No recent advanced imaging of the head or neck noted. Factors affecting care: Depression Social determinants of health: Alcohol use, marijuana use History obtained from others: none Consults: none ALL IMAGES (IF OBTAINED) HAVE BEEN PERSONALLY REVIEWED AND INTERPRETED BY MYSELF. MDM Narrative: The patient was hemodynamically stable, Afebrile and nontoxic-appearing I considered the following differential diagnosis: Subarachnoid hemorrhage, epidural hematoma, ICH, meningitis, carotid artery dissection, primary headache (primary headache, migraine, tension headache, cluster headache) The patient looks great and is in no significant objective discomfort currently. The patient's headache is non-specific. Exam is unremarkable. The patient is in no distress and the patient?s neurological exam is non-focal, neck is supple and without meningismus. The headache is not consistent with meningitis or infection, nor is it consistent with intracranial bleed (SAH etc.), carotid dissection, nor mass by history and examination. Medication and outpatient follow-up was instructed. The patient was instructed to return as needed or if symptoms changed or worsened, fever developed or inability to tolerate fluids. Gave reglan here and for homegoing. The patient agreed with plan. The patient and/or family, caregivers express understanding. The patient and/or family, caregivers agrees with the plan. Total critical care time today provided was at least 0 minutes. This excludes separately billable procedures. Critical care time (if documented) is secondary to the patient having high probability of clinically significant/life threatening deterioration in the patient's condition which required my urgent intervention. Shared decision making: I will have a discussion with the patient and or visitors regarding risk/benefits of further testing or admission. They will be made aware of of the risk/benefits inherent in this decision they will be given the opportunity to voice understanding. Impression: 1. Headache Disposition: Discharge home Discharge Plan Triage Chief Complaint: Headache ED Provider: Jono Gee Dx/Rx/DC Orders Clinical Impression: Headache Instructions: ED Headache Unspecified Prescriptions: New metoclopramide HCl [Reglan] 5 mg tablet 5 mg PO DAILY Qty: 20 0RF No Action Mirena 21 mcg/24 hours (8 yrs) 52 mg intrauterine device 1 device intrauterine ONCE Rx Instructions: as a single dose Primary Care Provider: Nikki Grey NP Referrals: Nikki Grey NP, [employer] [employer] [facility] [Primary Care Provider] - Activity Restrictions/Additional Instructions: Thank you for trusting us with your care today! Please take Tylenol (2 pills, 650 mg), ibuprofen (2 pills, 400 mg) every 6 hours as needed for pain and fever control. Please take Reglan as prescribed Please return to the emergency department if your symptoms change or worsen. Please follow with your primary care physician for further outpatient evaluation and management. Disposition Disposition: Home, Self Care
[2023-08-26] MEDS: predniSONE 20 MG Tablet 40 MG PO (17:12)
[2023-08-26] MEDS: Ibuprofen 200 MG Tablet 400 MG PO (17:12)
[2023-08-26] MEDS: Acetaminophen 325 MG Tablet 650 MG PO (17:13)
[2023-08-26] MEDS: Metoclopramide 5 MG TABLET PO (17:22)
[2023-08-26 18:11] VITALS: BP 125/72; PULSE 74; RESP 16; TEMP 36.7; O2SAT 99
== END 2023-08-26 18:14 | disposition home or self-care (01) ==
PROVIDERS: Emergency Provider Emergency Medicine; PCP Nurse Practitioner Family; Visit Provider Emergency Medicine
DX: R51.9 Headache, unspecified (principal)
CPT/HCPCS: 99283

== ENCOUNTER 2023-12-30 06:05 | Emergency (ER) | payer MEDICAID, SELFPAY ==
[2023-12-30 06:06] VITALS: BP 160/82; PULSE 120; RESP 22; TEMP 36.8; O2SAT 99; BMI 50.6
--- NOTE | 2023-12-30 06:32 | EKG12_ITS ---
Test Reason : TACHYCARDIA Blood Pressure : / mmHG Vent. Rate : 117 BPM Atrial Rate : 117 BPM P-R Int : 170 ms QRS Dur : 090 ms QT Int : 320 ms P-R-T Axes : 049 065 042 degrees QTc Int : 446 ms Sinus tachycardia Otherwise normal ECG Confirmed by Brad Ulloa ([id number]), editor news JESSICA SCOTT ([id number]) on 12/31/2023 12:51:05 PM Referred By: MOHINDER Confirmed By:Brad Ulloa
[2023-12-30] MEDS: 0.9% Normal Saline (1000mL) 1,000 ML 999 ML IV (06:42)
--- NOTE | 2023-12-30 06:43 | EDS_ITS ---
HPI History of Present Illness Chief Complaint: Palpitations Informant: patient and spouse/S.O. Narrative Narrative: Patient is a 18-year-old female with past medical history of anxiety depression as well as palpitations. She states that this morning she folic her heart was racing. She states there is no history of true cardiac dysrhythmia such as A- fib a flutter or SVT but secondary to the abnormal sensation in her chest she presents for evaluation. Patient denies any recent travel surgery or history of DVT/PE. She does states she uses caffeine daily but she has not had any more than she normally takes and she denies missing any of her medications to suggest withdrawal. She also denies any illicit drug use. [facility] Medical History EP (ectopic ) Palpitations Wears glasses Alcohol use Marijuana use Restless legs Migraine headache Non-smoker Asthma Shortness of breath on exertion Leg cramps History of pain when walking Bulimia nervosa, purging type Generalized anxiety disorder Borderline personality disorder Major depressive disorder, recurrent severe without psychotic features Visit for suture removal Home Medications ?Medication ?Instructions ?Recorded ?Last Taken ?Type fluoxetine 20 mg capsule 20 mg PO DAILY 12/30/23 Unknown History potassium chloride 10 mEq 10 meq PO DAILY 7 days #7 caps 12/30/23 Unknown Rx capsule,extended release Allergy/AdvReac Type Severity Reaction Status Date / Time bupropion (From Wellbutrin) Allergy Rash Verified 08/21/23 04:00 Family History Grandmother Breast cancer Cancer skin Mother Hypertension Seizures Surgical History Hx of cholecystectomy Social History household members: none Smoking Status: Never smoker alcohol intake: current details: occasionally substance use type: marijuana caffeine: Yes additional social history: Boyfriend-Vishnu ESQUIVEL ROS ED Constitutional Constitutional ED: Denies chills or fever(s) Eyes Eyes: Denies blurry vision or change in vision ENT ENT ED: Denies sore throat Cardiovascular Cardiovascular: Reports palpitations and racing heartbeat; Denies chest pain Respiratory/Chest Respiratory/Chest: Denies cough or dyspnea Gastrointestinal Gastrointestinal: Denies abdominal pain, diarrhea, nausea or vomiting Genitourinary Genitourinary ED: Denies dysuria Musculoskeletal Musculoskeletal: Denies back pain or myalgias Integumentary Denies rash Neurologic Neurologic: Denies headache(s) Hematologic/Lymphatic Hematologic/Lymphatic: Denies easy bleeding or easy bruising EXAM Physical Exam Const Vital Signs: 12/30/23 06:06 12/30/23 06:09 Temperature 98.2 F Temperature Source Oral Pulse Rate 120 H Respiratory Rate 22 H Respiratory Effort Normal Non-Labored Blood Pressure 160/82 H Blood Pressure Mean 108 Pulse Ox 99 Oxygen Delivery Method Room Air Positive well nourished, well developed and obese General Appearance ED: well developed; Negative for pallor Nutritional Appearance: obese HEENT Reports moist mucous membranes HEENT Narrative: No signs of infection noted in the posterior pharynx Eyes PERRL and EOMs intact bilaterally General Eye ED: Negative for pale conjunctiva or scleral icterus Neck supple and no JVD Chest Wall palpation of chest normal Resp normal respiratory effort and clear to auscultation bilaterally Cardio regular rhythm Rate: tachycardic and other Other Details: Tachycardic rate with regular rhythm Radial and carotid pulses are equal and symmetric GI normal to inspection, nondistended, normoactive bowel sounds, non-tender, non- distended and no masses Auscultation: normoactive bowel sounds Palpation: soft Extremity normal to inspection Extremity Narrative: No asymmetric edema no pitting edema negative Homans' sign bilaterally Neuro oriented x3, CN's II-XII intact bilaterally and no sensory deficits noted Sensorium / Orientation: alert Motor Exam: strength 5/5 throughout Psych mental status grossly normal Skin no rashes or lesions noted, no wounds and skin turgor normal General Skin Exam: Negative for jaundice or pallor MDM MDM MDM Narrative Medical decision making narrative: Patient arrived to the ER tachycardic but otherwise in no acute distress. As differential is for true cardiac dysrhythmia such as A-fib a flutter or SVT versus sinus tachycardia an EKG was obtained. EKG confirms sinus tachycardia without ischemic changes. In order to rule out acute blood loss anemia acute kidney injury electrolyte abnormality or DVT/PE as the cause of her tachycardia blood work was obtained. Labs revealed no clinically significant finding. Patient was hydrated 1 L of fluid and did have moderate improvement of her heart rate. The patient's D-dimer was slightly elevated at 0.68 and secondary he was a CTA will now be added to rule out pulmonary embolus as the cause of her sinus tachycardia. Secondary to the need for a CTA the patient will be signed out to the day physician Dr. Leal. I feel that if patient's CTA is negative she is safe for discharge home History & Record Review Discussion w/independent historian: Patient Lab Data Attestation: I reviewed the patient's lab results. Labs: Laboratory Results - last 24 hr 12/30/23 06:37 WBC 10.9 RBC 4.69 Hgb 12.9 Hct 38.6 MCV 82.3 MCH 27.5 MCHC 33.4 RDW Std Deviation 41.4 RDW Coeff of Dangelo 14.2 Plt Count 385 MPV 8.9 Immature Gran % (Auto) 0.300 Neut % (Auto) 55.0 Lymph % (Auto) 36.1 [place] % (Auto) 3.9 Eos % (Auto) 4.1 Baso % (Auto) 0.6 Absolute Neuts (auto) 6.0 Absolute Lymphs (auto) 3.92 Nucleated RBC % 0 D-Dimer Quant (PE/DVT) 0.68 H* Sodium 140 Potassium 3.2 L Chloride 108 H Carbon Dioxide 26.0 Anion Gap 6 BUN 9 Creatinine 0.87 Estim Creat Clear Calc 135.74 Est GFR (MDRD) Af Amer 106 Est GFR (MDRD) Non-Af 88 BUN/Creatinine Ratio 10.4 Glucose 108 H Calcium 9.1 Magnesium 2.1 TSH 2.48 Serum , Qual NEGATIVE Discharge Plan Triage Chief Complaint: Palpitations ED Provider: Remy Sawyer Dx/Rx/DC Orders Clinical Impression: Sinus tachycardia, Acute hypokalemia Instructions: Hypokalemia Dc, Understanding Tachycardia, ED Palpitations Prescriptions: New potassium chloride 10 mEq capsule, extended release 10 meq PO DAILY 7 Days Qty: 7 0RF No Action fluoxetine 20 mg capsule 20 mg PO DAILY Primary Care Provider: Nikki Grey Referrals: Nikki Grey, [employer] [Primary Care Provider] - Activity Restrictions/Additional Instructions: Please take the potassium supplement for the next 7 days as directed to bring your value to a normal level. The remainder of your exam showed no acute findings and your CT scan confirmed no pulmonary embolus/blood clot. If you have any further concerns or worsening of symptoms please return for repeat evaluation Print Language: Latvian Disposition Disposition: Home, Self Care
[2023-12-30 06:49] LABS: Absolute Lymphocyte Count 3.92 X10^3/uL (0.83-4.51); Basophil# 0.07 X10^3/uL; Basophil% 0.6 % (0-1); Eosinophil# 0.44 X10^3/uL; Eosinophils% 4.1 % (0-5); Hematocrit 38.6 % (37-47); Hemoglobin 12.9 g/dL (12.0-15.0); Lymphocyte # 3.92 X10^3/ul (0.83-4.51); Lymphocyte % 36.1 % (19-41); Mean Corp Hgb Conc 33.4 g/dL (32-36); Mean Corpuscular Hgb 27.5 pg (27.0-32.0); Mean Corpuscular Volume 82.3 fL (81-99); Mean Platelet Vol. 8.9 fl (6.2-12.0); Monocyte# 0.42 X10^3/uL; Monocyte% 3.9 % (0-10); NRBC Flagged by Analyzer 0 % (0-5); Neutrophil # 5.98 X10^3/uL (2.7-7.7); Platelet Count 385 K/mm3 (150-450); RBC Distribution Width CV 14.2 % (11.6-14.6); RBC Distribution Width SD 41.4 fl (35.1-43.9); Red Blood Count 4.69 M/mm3 (4.2-5.4); White Blood Count 10.9 K/mm3 (4.4-11.0)
[2023-12-30 07:01] LABS: Internal QC Validated? YES +Cl - CLEAR BKGD; Pregnancy, Serum, hCG Quali. NEGATIVE Negative
[2023-12-30 07:16] LABS: Anion Gap 6 (5-15); BUN 9 mg/dL (7-18); BUN/Creat Ratio 10.4 RATIO (10-20); Calcium,Total 9.1 mg/dL (8.5-10.1); Chloride 108 mmol/L (98-107); Creatinine, Serum 0.87 mg/dL (0.55-1.02); EST Glomerular Filtration Rate 88 mL/min (>60); Est Glom Filt Rate - Afr Amer 106 mL/min (>60); Estimated Creatinine Clearance 135.74 ml/min; Glucose 108 mg/dL (74-106); Magnesium 2.1 mg/dL (1.6-2.6); Potassium 3.2 mmol/L (3.5-5.1); Sodium Level 140 mmol/L (136-145); Thyroid Stim Hormone (TSH) 2.48 uIU/mL (0.358-3.74)
[2023-12-30 07:33] LABS: D-Dimer Quantitative (DVT/PE) 0.68 FEU/ug/m (0.27-0.49)
--- NOTE | 2023-12-30 07:35 | CT_ITS ---
STUDY: CTA CHEST REASON FOR EXAM: Female, 18 years old. Elevated D-dimer. History of tachycardia. Asthma. RADIATION DOSAGE (If Supplied By Facility): CTDIvol = ( 13.85 ) mGy, DLP = ( 491.17 ) mGycm TECHNIQUE: The examination was performed with the intravenous administration of IV 100mL Isovue-370. Post-processing of the angiographic images was performed, with multiplanar reformation and 3D reconstruction. Individualized dose optimization techniques were used for this CT. COMPARISON: None. FINDINGS: Normal enhancement of the main pulmonary artery and right and left pulmonary arteries. Normal enhancement of the bilateral peripheral pulmonary arteries. There is no demonstrated pulmonary embolism. Normal thoracic aorta and visualized great vessels. There is no demonstrated aortic dissection. Normal heart and pericardium. Normal mediastinum. Normal hilar regions. Normal visualized trachea and bronchi. The lungs are well expanded. Normal pulmonary parenchyma. Normal pleura. Normal chest wall structures. Normal osseous structures. The patient is status post cholecystectomy. CT/CTA Chest W/WO Contrast IMPRESSION: Normal CTA chest examination, without a demonstrated pulmonary embolism or arterial dissection. Electronically Signed: Demetris Riojas MD at 8:47 EDT ,
[2023-12-30 08:06] VITALS: BP 134/76; PULSE 104; RESP 18; O2SAT 98
[2023-12-30 08:58] VITALS: BP 130/77; PULSE 99; RESP 18; TEMP 36.2; O2SAT 98
== END 2023-12-30 09:02 | disposition home or self-care (01) ==
PROVIDERS: Emergency Provider Emergency Medicine; PCP Nurse Practitioner Family; Visit Provider Emergency Medicine
DX: R00.0 Tachycardia, unspecified (principal); Z68.43 Body mass index [BMI] 50.0-59.9, adult; E87.6 Hypokalemia; E66.9 Obesity, unspecified
CPT/HCPCS: 71275; 80048; 83735; 84443; 84703; 85025; 85379; 93005; 96360; 99283; J7030; Q9967; A4216

== ENCOUNTER → 2024-01-23 | Outpatient (CLI) | payer MEDICAID, SELFPAY ==
--- NOTE | 2024-01-23 08:06 | EKG12_ITS ---
Test Reason : FAST HR Blood Pressure : / mmHG Vent. Rate : 085 BPM Atrial Rate : 085 BPM P-R Int : 158 ms QRS Dur : 090 ms QT Int : 372 ms P-R-T Axes : 042 054 049 degrees QTc Int : 442 ms Normal sinus rhythm Normal ECG Confirmed by LOPEZ MACHADO, KATHY ([id number]), electronic news gathering editor MERLIN FAYE ([id number]) on 01/24/2024 10:26:39 AM Referred By: Nikki Grey Confirmed By:JEFFREY MARROQUIN MD
== END | disposition home or self-care (01) ==
PROVIDERS: PCP Nurse Practitioner Family; Referring Provider Nurse Practitioner Family; Visit Provider Nurse Practitioner Family
DX: I47.9 Paroxysmal tachycardia, unspecified (principal)
CPT/HCPCS: 93005

== ENCOUNTER → 2024-02-19 | Outpatient (CLI) | payer MEDICAID, SELFPAY ==
--- NOTE | 2024-02-19 13:07 | ECHOD_ITS ---
Reason For Study: PAROXYSMAL TACHYCARDIA Procedure This was a 2D Doppler, Color Flow transthoracic echocardiogram. The study was technically difficult. Exam performed in department. Left Ventricle Normal size and thickness. The left ventricular ejection fraction is 65 %. No evidence for diastolic dysfunction. Right Ventricle Normal right ventricle. Atria The left atrium is mildly enlarged. Normal right atrium. Mitral Valve Trivial mitral valve insufficiency. Tricuspid Valve Trivial tricuspid valve insufficiency. Right ventricular systolic pressure estimated to be 38 mmHg. Aortic Valve Trisinus/trileaflet aortic valve. Pulmonic Valve The pulmonic valve is not well visualized. Trivial pulmonic valve insufficiency. Great Vessels Normal sized aortic root. Pericardium/Pleural No pericardial effusion. MMode/2D Measurements & Calculations LVIDd: 4.6 cm IVSd: 0.94 cm Ao root diam: 2.6 cm LVIDs: 3.0 cm LVPWd: 0.88 cm LA dimension: 4.3 cm RVDd: 3.4 cm FS: 35.0 % LAV(MOD-bp): 64.2 ml LVAd ap4: 30.3 cm2 SV(MOD-sp4): 61.0 ml LAV(MOD-bp) Indexed: 28.5 ml/m2 LVLd ap4: 8.1 cm LAV(MOD-sp2): 63.2 ml EDV(MOD-sp4): 92.4 ml LAV(MOD-sp4): 63.1 ml EDV(sp4-el): 95.7 ml LVAs ap4: 15.2 cm2 LVLs ap4: 6.4 cm ESV(MOD-sp4): 31.4 ml ESV(sp4-el): 30.9 ml EF(MOD-sp4): 66.0 % EF(sp4-el): 67.7 % SV(sp4-el): 64.7 ml LA A4 area: 20.5 cm2 LA dimension(2D): 4.2 cm RA A4 area: 12.4 cm2 TAPSE: 4.2 cm Time Measurements MV dec time: 0.20 sec Doppler Measurements & Calculations MV E max damir: 126.9 cm/sec Lat Peak E' Damir: 20.2 cm/sec Med Peak E' Damir: 15.1 cm/sec MV A max damir: 95.5 cm/sec E/E' lat: 6.3 E/E' med: 8.4 MV E/A: 1.3 MV V2 max: 122.4 cm/sec MV P1/2t max damir: 125.5 cm/sec Ao V2 max: 186.8 cm/sec MV max P.0 mmHg MV P1/2t: 60.8 msec Ao max P.0 mmHg MV V2 mean: 77.0 cm/sec Ao V2 mean: 132.6 cm/sec MV mean P.6 mmHg MV dec slope: 604.8 cm/sec2 Ao mean P.8 mmHg MV V2 VTI: 26.5 cm MVA(P1/2t): 3.6 cm2 Ao V2 VTI: 39.2 cm AV (velocity ratio): 0.82 LV V1 max: 154.5 cm/sec PA V2 max: 118.8 cm/sec TR max damir: 266.1 cm/sec LV V1 max P.6 mmHg PA V2 mean: 81.1 cm/sec TR max P.5 mmHg LV V1 mean P.3 mmHg LV V1 mean: 110.1 cm/sec LV V1 VTI: 32.1 cm ECHO/Echo Complete Interpretation Summary The study was technically difficult. The left ventricular ejection fraction is 65 %. The left atrium is mildly enlarged. Right ventricular systolic pressure estimated to be 38 mmHg. Ordering Physician: Nikki Grey Referring Physician: Nikki Grey Performed By: Cici Ji RDCS, RVT
== END | disposition home or self-care (01) ==
PROVIDERS: PCP Nurse Practitioner Family; Referring Provider Nurse Practitioner Family; Visit Provider Nurse Practitioner Family
DX: I47.9 Paroxysmal tachycardia, unspecified (principal)
CPT/HCPCS: 93306

== ENCOUNTER 2024-03-08 00:27 | Emergency (ER) | payer OTHER, SELFPAY ==
[2024-03-08 00:28] VITALS: BP 160/94; PULSE 100; RESP 15; TEMP 37.1; O2SAT 99; BMI 50.8
[2024-03-08 01:05] LABS: Absolute Lymphocyte Count 3.41 X10^3/uL (0.83-4.51); Absolute Neutrophil Count 6.1 X10^3/uL (2.0-7.7); Basophil# 0.07 X10^3/uL; Basophil% 0.7 % (0-1); Eosinophil# 0.37 X10^3/uL; Eosinophils% 3.6 % (0-5); Hematocrit 37.9 % (37-47); Hemoglobin 12.3 g/dL (12.0-15.0); Lymphocyte # 3.41 X10^3/ul (0.83-4.51); Lymphocyte % 32.9 % (19-41); Mean Corp Hgb Conc 32.5 g/dL (32-36); Mean Corpuscular Hgb 27.1 pg (27.0-32.0); Mean Corpuscular Volume 83.5 fL (81-99); Mean Platelet Vol. 8.8 fl (6.2-12.0); Monocyte# 0.38 X10^3/uL; Monocyte% 3.7 % (0-10); NRBC Flagged by Analyzer 0 % (0-5); Neutrophil # 6.09 X10^3/uL (2.7-7.7); Neutrophil % 58.8 % (47-70); Platelet Count 350 K/mm3 (150-450); RBC Distribution Width CV 13.9 % (11.6-14.6); RBC Distribution Width SD 42.2 fl (35.1-43.9); Red Blood Count 4.54 M/mm3 (4.2-5.4); White Blood Count 10.4 K/mm3 (4.4-11.0)
[2024-03-08] MEDS: 0.9% Normal Saline (1000mL) 1,000 ML 999 ML IV (01:05)
[2024-03-08] MEDS: Ondansetron 4 MG/2 ML Vial IV (01:06)
[2024-03-08] MEDS: Morphine 4 MG/ML Syringe IV (01:06)
--- NOTE | 2024-03-08 01:07 | RAD_ITS ---
EXAM: XR ABDOMEN, 2 VIEWS AND XR CHEST, 1 VIEW CLINICAL INDICATION: ABD PAIN TECHNIQUE: Frontal view of the chest, frontal view of the abdomen/pelvis and upright or decubitus view of the abdomen. COMPARISON: No relevant prior studies available. FINDINGS: CHEST: LUNGS AND PLEURAL SPACES: Unremarkable. No consolidation or edema. No pneumothorax. No effusion. HEART: Unremarkable. Cardiac silhouette not enlarged. MEDIASTINUM: Central airways and mediastinal contour are unremarkable. ABDOMEN: INTRAPERITONEAL SPACE: No free air. GASTROINTESTINAL TRACT: Unremarkable. Non-obstructive. No bowel or stomach distention. ORGANS: IUD in the expected location of the uterus. No organomegaly. No abnormal calcifications. TUBES, LINES AND DEVICES: None. BONES/JOINTS: No acute findings. SOFT TISSUES: No acute findings. RAD/Acute Abdomen Inc Chest IMPRESSION: No acute findings in the chest, abdomen or pelvis. Electronically Signed: Conrado Baires MD at 1:50 EDT ,
[2024-03-08 01:12] LABS: Internal QC Validated? YES +Cl - CLEAR BKGD; Pregnancy, Serum, hCG Quali. NEGATIVE Negative
--- NOTE | 2024-03-08 01:20 | EDS_ITS ---
HPI History of Present Illness Chief Complaint: Abd Pain Informant: patient Narrative Narrative: Patient is a 19-year-old female with past medical history of anxiety depression and palpitations. She states for the past 2 days she has had upper abdominal discomfort with bouts of nausea and vomiting. She states the emesis has been food contents and bile but not dark or bloody in nature. She reports approximately 5-7 episodes over the last 2 days. She also reports she has had loose stool/diarrhea associated with her symptoms and reports that this has not been black or bloody and she also reports approximate 5-7 episodes over the last 2 days. She denies any known sick contacts she denies any recent antibiotic use or travel outside the country. She states that she feels like symptoms are slowly worsening and not improving over time and with this she has concern for potential infection and comes in for evaluation. She states that she had her gallbladder removed approximately 2 years ago [facility] Medical History EP (ectopic ) Palpitations Wears glasses Alcohol use Marijuana use Restless legs Migraine headache Non-smoker Asthma Shortness of breath on exertion Leg cramps History of pain when walking Bulimia nervosa, purging type Generalized anxiety disorder Borderline personality disorder Major depressive disorder, recurrent severe without psychotic features Visit for suture removal Home Medications ?Medication ?Instructions ?Recorded ?Last Taken ?Type fluoxetine 20 mg capsule 20 mg PO DAILY 12/30/23 Unknown History fluoxetine 10 mg tablet 10 mg PO DAILY 03/08/24 Unknown History ondansetron 4 mg disintegrating 4 mg PO TID PRN nausea and 03/08/24 Unknown Rx tablet vomiting #21 tabs oxycodone-acetaminophen 5 mg-325 1 tab PO Q6H PRN pain 3 days #12 03/08/24 Unknown Rx mg tablet (Percocet) tabs Allergy/AdvReac Type Severity Reaction Status Date / Time bupropion (From Wellbutrin) Allergy Rash Verified 08/21/23 04:00 Family History Grandmother Breast cancer Cancer skin Mother Hypertension Seizures Surgical History Hx of cholecystectomy Social History household members: none Smoking Status: Never smoker alcohol intake: current details: occasionally substance use type: marijuana caffeine: Yes additional social history: Boyfriend-Vishnu ESQUIVEL ROS ED Constitutional Constitutional ED: Denies chills or fever(s) ENT ENT ED: Denies rhinorrhea or sore throat Cardiovascular Cardiovascular: Denies chest pain Respiratory/Chest Respiratory/Chest: Denies cough or dyspnea Gastrointestinal Gastrointestinal: Reports abdominal pain, diarrhea, nausea and vomiting; Denies melena Genitourinary Genitourinary ED: Denies dysuria or hematuria Musculoskeletal Musculoskeletal: Denies back pain Integumentary Denies rash Neurologic Neurologic: Denies headache(s) Psychiatric Psychiatric: Reports anxiety and depression Hematologic/Lymphatic Hematologic/Lymphatic: Denies easy bleeding or easy bruising EXAM Physical Exam Const Vital Signs: 03/08/24 00:28 Temperature 98.8 F Temperature Source Oral Pulse Rate 100 Respiratory Rate 15 Blood Pressure 160/94 H Blood Pressure Mean 116 Pulse Ox 99 Oxygen Delivery Method Room Air Positive well nourished, well developed and obese General Appearance ED: well developed; Negative for pallor Nutritional Appearance: obese HEENT Reports dry mucous membranes HEENT Narrative: Mucous membranes are dry and tacky No tongue or lip swelling no oral lesions no airway edema or compromise No secondary findings in the posterior pharynx to suggest infection Mouth ED: Yes dry mucous membranes Mouth: dry mucous membranes Eyes PERRL and EOMs intact bilaterally General Eye ED: Negative for scleral icterus Neck supple Resp normal respiratory effort and clear to auscultation bilaterally Cardio regular rate and regular rhythm GI non-distended and no masses GI Narrative: Abdomen is soft and nondistended with slightly hyperactive bowel sounds. There is pain with palpation in the midepigastric region without voluntary guarding or rigidity. No pulsatile mass or fluid wave. No hernia palpated. No increased tympany Auscultation: hyperactive bowel sounds Palpation: soft Back/Spine no CVA tenderness Extremity normal to inspection Extremity Narrative: No asymmetric edema no pitting edema negative Homans' sign bilaterally Left upper extremity is neurovascularly intact; AIN/PIN are intact and normal. There is muscular tension and reproducible pain along the left trapezius muscle belly region that patient reports is the same pain she has been experiencing of her left arm. The compartments are soft and compressible going against compartment syndrome Neuro oriented x3, CN's II-XII intact bilaterally and no sensory deficits noted Sensorium / Orientation: alert Motor Exam: strength 5/5 throughout Psych Psych Narrative: Patient has a nervous/anxious affect Skin no rashes or lesions noted, no wounds and No skin turgor normal Skin Narrative: Skin turgor is slightly increased General Skin Exam: Negative for jaundice or pallor MDM MDM MDM Narrative Medical decision making narrative: Patient arrived to the ER hypertensive but otherwise with stable vitals. She reported 2 days of upper abdominal discomfort with bouts of nausea vomiting and diarrhea. Differential diagnosis is for pancreatitis versus viral stomach infection such as [place] virus versus rotavirus versus colitis as her gallbladder has been removed there is no concern for biliary colic or acute cholecystitis. There is also potential for symptoms secondary to complication or small bowel obstruction or ileus. Basic labs were obtained and show no leukocytosis or left shift no signs of acute kidney injury or electrolyte abnormality. test is negative going against a complication and lipase is normal going against acute pancreatitis. The patient's x-ray revealed no signs of obstruction or perforation. The patient was seen in December and had a CTA of her chest which revealed no PE or vascular abnormality and as the patient has reproducible pain of the left upper shoulder I feel this is musculoskeletal and not vascular or lung pathology and therefore no need to repeat a CTA. With IV fluids morphine and Zofran patient had improvement of her pain her vital signs/blood pressure improved and she had no further bouts of vomiting or diarrhea while in the ER. Therefore this time I do not feel there is need for further workup and she is otherwise safe for discharge History & Record Review Discussion w/independent historian: Patient Lab Data Attestation: I reviewed the patient's lab results. Labs: Laboratory Results - last 24 hr 03/08/24 00:57 WBC 10.4 RBC 4.54 Hgb 12.3 Hct 37.9 MCV 83.5 MCH 27.1 MCHC 32.5 RDW Std Deviation 42.2 RDW Coeff of Dangelo 13.9 Plt Count 350 MPV 8.8 Immature Gran % (Auto) 0.300 Neut % (Auto) 58.8 Lymph % (Auto) 32.9 Garza % (Auto) 3.7 Eos % (Auto) 3.6 Baso % (Auto) 0.7 Absolute Neuts (auto) 6.1 Absolute Lymphs (auto) 3.41 Nucleated RBC % 0 Sodium 142 Potassium 3.8 Chloride 110 H Carbon Dioxide 26.0 Anion Gap 6 BUN 10 Creatinine 0.77 Estim Creat Clear Calc 152.31 Est GFR (MDRD) Af Amer 121 Est GFR (MDRD) Non-Af 100 BUN/Creatinine Ratio 12.9 Glucose 118 H Calcium 9.1 Magnesium 2.0 Total Bilirubin 0.70 Direct Bilirubin 0.18 AST 19 ALT 17 Alkaline Phosphatase 118 H Total Protein 7.2 Albumin 3.5 Globulin 3.7 Lipase 22 Serum , Qual NEGATIVE Radiography Diagnostic Testing: Clinical Impression(s) from Imaging Studies Acute Abdomen Series 03/08/24 01:07 IMPRESSION: No acute findings in the chest, abdomen or pelvis. Electronically Signed: Conrado Baires MD at 1:50 EDT , Acute abdominal x-ray with 1 view chest as interpreted by the emergency medicine physician reveals a nonspecific nonobstructive bowel gas pattern with chest x- ray component revealing no acute infiltrate pneumothorax or pleural effusion. Discharge Plan Triage Chief Complaint: Abd Pain ED Provider: Remy Sawyer Dx/Rx/DC Orders Clinical Impression: Nonspecific abdominal pain, Nausea vomiting and diarrhea, Mild dehydration, Anxiety, Depression Instructions: Abdominal Pain, Dehydration, ED Gastroenteritis, Viral (Adult) Prescriptions: New ondansetron 4 mg tablet,disintegrating 4 mg PO TID PRN (Reason: nausea and vomiting) Qty: 21 0RF oxycodone-acetaminophen [Percocet] 5-325 mg tablet 1 tab PO Q6H PRN (Reason: pain) 3 Days Qty: 12 0RF No Action fluoxetine 10 mg tablet 10 mg PO DAILY fluoxetine 20 mg capsule 20 mg PO DAILY Primary Care Provider: Nikki Grey Referrals: Nikki Grey, ELECTRIC METER TESTER-C [Primary Care Provider] - Print Language: Faroese Disposition Disposition: Home, Self Care
[2024-03-08 01:21] LABS: AST(SGOT) 19 U/L (15-37); Alanine Aminotransfer ALT/SGPT 17 U/L (13-56); Albumin, Serum 3.5 g/dL (3.2-5.0); Alkaline Phosphatase 118 U/L (45-117); Anion Gap 6 (5-15); BUN 10 mg/dL (7-18); BUN/Creat Ratio 12.9 RATIO (10-20); Bilirubin, Direct 0.18 mg/dL (0.00-0.30); Calcium,Total 9.1 mg/dL (8.5-10.1); Chloride 110 mmol/L (98-107); Creatinine, Serum 0.77 mg/dL (0.55-1.02); EST Glomerular Filtration Rate 100 mL/min (>60); Est Glom Filt Rate - Afr Amer 121 mL/min (>60); Estimated Creatinine Clearance 152.31 ml/min; Globulin 3.7 g/dL (2.2-4.2); Glucose 118 mg/dL (74-106); Lipase 22 U/L (13-75); Potassium 3.8 mmol/L (3.5-5.1); Protein, Total 7.2 g/dL (6.4-8.2); Sodium Level 142 mmol/L (136-145)
[2024-03-08 02:15] VITALS: BP 120/73; PULSE 62; RESP 20; TEMP 36.8; O2SAT 96
== END 2024-03-08 02:21 | disposition home or self-care (01) ==
PROVIDERS: Emergency Provider Emergency Medicine; PCP Nurse Practitioner Family; Visit Provider Emergency Medicine
DX: R10.13 Epigastric pain (principal); F33.2 Major depressive disorder, recurrent severe without psychotic features; R11.2 Nausea with vomiting, unspecified; R19.7 Diarrhea, unspecified; F41.1 Generalized anxiety disorder; E86.0 Dehydration; Z79.899 Other long term (current) drug therapy
CPT/HCPCS: 74022; 80048; 80076; 83690; 83735; 84703; 85025; 96361; 96374; 96375; 99283; J2405

== ENCOUNTER → 2024-06-09 | Outpatient (CLI) | payer OTHER, SELFPAY ==
[2024-06-09 12:39] LABS: Erythrocyte Sedimentation Rate 16 mm/hr (0-30)
[2024-06-09 12:41] LABS: Absolute Lymphocyte Count 3.15 X10^3/uL (0.83-4.51); Absolute Neutrophil Count 5.1 X10^3/uL (2.0-7.7); Basophil# 0.09 X10^3/uL; Eosinophil# 0.33 X10^3/uL; Eosinophils% 3.7 % (0-5); Hematocrit 36.5 % (37-47); Hemoglobin 12.1 g/dL (12.0-15.0); Lymphocyte # 3.15 X10^3/ul (0.83-4.51); Lymphocyte % 35.1 % (19-41); Mean Corp Hgb Conc 33.2 g/dL (32-36); Mean Corpuscular Hgb 27.9 pg (27.0-32.0); Mean Corpuscular Volume 84.3 fL (81-99); Mean Platelet Vol. 8.7 fl (6.2-12.0); Monocyte# 0.29 X10^3/uL; Monocyte% 3.2 % (0-10); NRBC Flagged by Analyzer 0 % (0-5); Neutrophil # 5.07 X10^3/uL (2.7-7.7); Neutrophil % 56.4 % (47-70); Platelet Count 316 K/mm3 (150-450); RBC Distribution Width CV 14.1 % (11.6-14.6); RBC Distribution Width SD 43.4 fl (35.1-43.9); Red Blood Count 4.33 M/mm3 (4.2-5.4)
[2024-06-09 13:16] LABS: ALB/GLOB Ratio 0.9 RATIO (0.9-2.4); AST(SGOT) 23 U/L (15-37); Alanine Aminotransfer ALT/SGPT 25 U/L (13-56); Albumin, Serum 3.2 g/dL (3.2-5.0); Alkaline Phosphatase 118 U/L (45-117); Anion Gap 5 (5-15); BUN 14 mg/dL (7-18); BUN/Creat Ratio 18.3 RATIO (10-20); Calcium,Total 8.7 mg/dL (8.5-10.1); Chloride 108 mmol/L (98-107); Creatinine, Serum 0.77 mg/dL (0.55-1.02); EST Glomerular Filtration Rate 101 mL/min (>60); Est Glom Filt Rate - Afr Amer 122 mL/min (>60); Globulin 3.6 g/dL (2.2-4.2); Glucose 97 mg/dL (74-106); Protein, Total 6.8 g/dL (6.4-8.2); Rheumatoid Factor < 10.0 IU/mL (<15); Sodium Level 138 mmol/L (136-145)
[2024-06-11 08:42] LABS: Vitamin B12 721 pg/mL (211-911); Vitamin D,25 Hydroxy 7.3 ng/mL
[2024-06-11 13:07] LABS: CCP IgG Antibodies 0 units (0-19)
[2024-06-11 15:07] LABS: Anti-Centromere B Ab <0.2 AI (0.0-0.9); Anti-Chromatin 0.2 AI (0.0-0.9); Anti-Jo <0.2 AI (0.0-0.9); Anti-Scleroderma-70 AB <0.2 AI (0.0-0.9); Anti-dsDNA Ab 1 IU/mL (0-9); CRP, High Sensitivity 26.95 mg/L (0.00-3.00); RNP Ab 0.2 AI (0.0-0.9); SJOGREN'S Anti-SS-A test < 0.2 AI (0.0-0.9); SJOGREN'S Anti-SS-B test < 0.2 AI (0.0-0.9); Smith Ab <0.2 AI (0.0-0.9)
== END | disposition home or self-care (01) ==
LOC: VSLAB 12:07
PROVIDERS: PCP Nurse Practitioner Family
DX: R53.83 Other fatigue (principal); M25.50 Pain in unspecified joint
CPT/HCPCS: 36415; 80053; 82306; 82607; 84443; 85025; 85652; 86141; 86200; 86225; 86235; 86431

== ENCOUNTER 2024-06-24 09:12 | Emergency (ER) | payer OTHER, SELFPAY ==
[2024-06-24 09:13] VITALS: BP 136/84; PULSE 82; RESP 18; TEMP 37.2; O2SAT 99; BMI 51.3
--- NOTE | 2024-06-24 09:32 | EDS_ITS ---
HPI History of Present Illness Chief Complaint: Dental Informant: patient Narrative Narrative: 19-year-old female presenting to the emergency room for dental pain. Patient states that she was seen here recently for dental and. Looks like she had a virtual visit on the and was started on Augmentin. Patient states that she pain is severe and she cannot take it anymore. No reported fevers. She states she has a appointment at [facility] in 1 month. She states that this is starting from an impacted wisdom tooth on the right lower side. PFSH PFSH Medical History EP (ectopic ) Palpitations Wears glasses Alcohol use Marijuana use Restless legs Migraine headache Non-smoker Asthma Shortness of breath on exertion Leg cramps History of pain when walking Bulimia nervosa, purging type Generalized anxiety disorder Borderline personality disorder Major depressive disorder, recurrent severe without psychotic features Visit for suture removal Home Medications ?Medication ?Instructions ?Recorded ?Last Taken ?Type fluoxetine 20 mg capsule 20 mg PO DAILY 12/30/23 Unknown History fluoxetine 10 mg tablet 10 mg PO DAILY 03/08/24 Unknown History ondansetron 4 mg disintegrating 4 mg PO TID PRN nausea and 03/08/24 Unknown Rx tablet vomiting #21 tabs oxycodone-acetaminophen 5 mg-325 1 tab PO Q6H PRN pain 3 days #12 03/08/24 Unknown Rx mg tablet (Percocet) tabs amoxicillin 875 mg-potassium 1 tab PO Q12H #14 tabs 06/23/24 Unknown Rx clavulanate 125 mg tablet Allergy/AdvReac Type Severity Reaction Status Date / Time bupropion (From Wellbutrin) Allergy Rash Verified 06/24/24 09:13 Family History Grandmother Breast cancer Cancer skin Mother Hypertension Seizures Surgical History Hx of cholecystectomy Social History household members: none Smoking Status: Never smoker alcohol intake: current details: occasionally substance use type: marijuana caffeine: Yes additional social history: Boyfriend-Vishnu ESQUIVEL ROS ED Constitutional Constitutional ED: Denies chills or weight loss Eyes Eyes: Denies change in vision or diplopia ENT ENT ED: Reports other Details: Dental pain ; Denies ear pain, rhinorrhea or sore throat Cardiovascular Cardiovascular: Denies chest pain, orthopnea, palpitations or racing heartbeat Respiratory/Chest Respiratory/Chest: Denies cough, dyspnea or orthopnea Gastrointestinal Gastrointestinal: Denies abdominal pain, diarrhea, nausea or vomiting Genitourinary Genitourinary ED: Denies dysuria, hematuria or urinary frequency Musculoskeletal Musculoskeletal: Denies arthralgias or myalgias Integumentary Denies abscess or rash Neurologic Neurologic: Denies headache(s) or weakness Psychiatric Psychiatric: Denies anxiety, depression, suicidal ideation or suicidal thoughts Endocrine Endocrinology: Denies polydipsia, polyphagia or polyuria Allergic/Immunologic Allergic/Immunologic ED: Denies mouth swelling, tongue swelling or urticaria EXAM Physical Exam Const Vital Signs: 06/24/24 09:13 Temperature 98.9 F Temperature Source Oral Pulse Rate 82 Respiratory Rate 18 Blood Pressure 136/84 H Blood Pressure Mean 101 Pulse Ox 99 Oxygen Delivery Method Room Air Positive well nourished, well developed and obese General Appearance ED: well developed and NAD Nutritional Appearance: obese HEENT Reports normocephalic, head/scalp atraumatic and moist mucous membranes HEENT Narrative: I do not appreciate trismus. There is no gum swelling or erythema or bleeding. Floor the mouth is soft. I do not appreciate any overlying facial swelling or erythema. Tympanic membranes appear normal. No lymphadenopathy. Eyes PERRL and EOMs intact bilaterally Neck no lymphadenopathy, supple and no JVD Resp normal respiratory effort and clear to auscultation bilaterally Cardio regular rate, regular rhythm and no murmurs GI normal to inspection, nondistended, normoactive bowel sounds and non-tender Palpation: soft Back/Spine no CVA tenderness and normal ROM Extremity normal to inspection General Extremety ED: Negative for edema General Extremity: Negative for edema Neuro oriented x3 and CN's II-XII intact bilaterally Sensorium / Orientation: alert Motor Exam: strength 5/5 throughout Psych mental status grossly normal Mood & Affect: Negative for depressed or tearful Skin no rashes or lesions noted and no wounds MDM MDM MDM Narrative Medical decision making narrative: Differential diagnosis includes but not limited to ANUG periapical abscess gingivitis Johann's angina impacted wisdom tooth Patient or stands that I am not a dentist. She is already on antibiotics. I am extremely limited to what I can do for her today, New 's Day, but I can write her for some pain medication. Would recommend that she call the clinic and see if they can move up her appointment. History & Record Review Discussion w/independent historian: Patient Discharge Plan Triage Chief Complaint: Dental ED Provider: Tom Villar Dx/Rx/DC Orders Prescriptions: No Action amoxicillin-pot clavulanate 875-125 mg tablet 1 tab PO Q12H Qty: 14 0RF fluoxetine 10 mg tablet 10 mg PO DAILY ondansetron 4 mg tablet,disintegrating 4 mg PO TID PRN (Reason: nausea and vomiting) Qty: 21 0RF oxycodone-acetaminophen [Percocet] 5-325 mg tablet 1 tab PO Q6H PRN (Reason: pain) 3 Days Qty: 12 0RF fluoxetine 20 mg capsule 20 mg PO DAILY Primary Care Provider: Nikki Grey Referrals: Nikki Grey, A[employer]IC[employer]URAL PLOW OPERATOR-C [Primary Care Provider] - Print Language: [place] Zealander
== END 2024-06-24 09:42 | disposition home or self-care (01) ==
PROVIDERS: Emergency Provider Emergency Medicine; PCP Nurse Practitioner Family; Visit Provider Emergency Medicine
DX: K08.89 Other specified disorders of teeth and supporting structures (principal)
CPT/HCPCS: 99282

== ENCOUNTER → 2024-06-29 | Outpatient (CLI) | payer MEDICAID, SELFPAY ==
[2024-06-30 08:08] LABS: CRP, High Sensitivity 16.68 mg/L (0.00-3.00)
[2024-06-30 10:07] LABS: Lyme Scn Total Ab w/Rflx Negative (Negative)
== END | disposition home or self-care (01) ==
PROVIDERS: PCP Nurse Practitioner Family
DX: R79.82 Elevated C-reactive protein (CRP) (principal)
CPT/HCPCS: 36415; 86141; 86618

== ENCOUNTER → 2024-07-08 | Outpatient (CLI) | payer OTHER, SELFPAY ==
[2024-07-08 17:26] LABS: Absolute Lymphocyte Count 3.18 X10^3/uL (0.83-4.51); Absolute Neutrophil Count 5.5 X10^3/uL (2.0-7.7); Basophil# 0.07 X10^3/uL; Basophil% 0.7 % (0-1); Eosinophil# 0.33 X10^3/uL; Eosinophils% 3.5 % (0-5); Hematocrit 35.2 % (37-47); Hemoglobin 11.7 g/dL (12.0-15.0); Lymphocyte # 3.18 X10^3/ul (0.83-4.51); Lymphocyte % 33.8 % (19-41); Mean Corp Hgb Conc 33.2 g/dL (32-36); Mean Corpuscular Hgb 27.6 pg (27.0-32.0); Mean Platelet Vol. 8.8 fl (6.2-12.0); Monocyte# 0.31 X10^3/uL; Monocyte% 3.3 % (0-10); NRBC Flagged by Analyzer 0 % (0-5); Neutrophil % 58.4 % (47-70); Platelet Count 346 K/mm3 (150-450); RBC Distribution Width CV 14.2 % (11.6-14.6); RBC Distribution Width SD 42.7 fl (35.1-43.9); Red Blood Count 4.24 M/mm3 (4.2-5.4); White Blood Count 9.4 K/mm3 (4.4-11.0)
[2024-07-08 17:43] LABS: AST(SGOT) 20 U/L (15-37); Alanine Aminotransfer ALT/SGPT 32 U/L (13-56); Albumin, Serum 3.6 g/dL (3.2-5.0); Alkaline Phosphatase 103 U/L (45-117); Anion Gap 5 (5-15); BUN 10 mg/dL (7-18); BUN/Creat Ratio 14.7 RATIO (10-20); Chloride 108 mmol/L (98-107); Creatinine, Serum 0.68 mg/dL (0.55-1.02); EST Glomerular Filtration Rate 115 mL/min (>60); Est Glom Filt Rate - Afr Amer 139 mL/min (>60); Globulin 3.5 g/dL (2.2-4.2); Glucose 93 mg/dL (74-106); Potassium 3.7 mmol/L (3.5-5.1); Protein, Total 7.1 g/dL (6.4-8.2); Rheumatoid Factor < 10.0 IU/mL (<15); Sodium Level 138 mmol/L (136-145)
[2024-07-08 18:21] LABS: Hepatitis B Surface Antibody Non-Reactive; Hepatitis B Surface Antigen Non-Reactive (Nonreactive); Hepatitis C Antibody Non-Reactive (Nonreactive)
[2024-07-10 12:08] LABS: CCP IgG Antibodies 0 units (0-19); QNTFERON TB Mitogen Value > 10.00 IU/mL (.); QNTFERON TB Nil Value 0.01 IU/mL (.); QNTFERON TB1+ Ag Value 0.01 IU/mL (.); QNTFERON TB2+ Ag Value 0.01 IU/mL (.); QNTIFERON TB Positive Criteria Negative (Negative)
[2024-07-10 13:07] LABS: ANTINUCLEAR ANTIBODIES DIRECT Negative (Negative)
== END | disposition home or self-care (01) ==
PROVIDERS: PCP Nurse Practitioner Family; Referring Provider Internal Medicine Rheumatology; Visit Provider Internal Medicine Rheumatology
DX: M06.4 Inflammatory polyarthropathy (principal); M79.7 Fibromyalgia; L73.2 Hidradenitis suppurativa; L21.9 Seborrheic dermatitis, unspecified; L83 Acanthosis nigricans
CPT/HCPCS: 36415; 80053; 85025; 86038; 86200; 86431; 86480; 86706; 86803; 87340

== ENCOUNTER 2024-07-10 10:42 | Emergency (ER) | payer OTHER, SELFPAY ==
[2024-07-10 10:43] VITALS: BP 166/101; PULSE 111; RESP 20; TEMP 36.8; O2SAT 100; BMI 52.0
--- NOTE | 2024-07-10 11:22 | EDS_ITS ---
HPI <MONICA Jacinto - Last Filed: 07/10/24 14:38> History of Present Illness Chief Complaint: Edema Narrative Narrative: 19-year-old female with past medical history of fibromyalgia was sent in by urgent care for lower extremity edema. She states both legs have been more swollen than usual over the last 4 days. She also has felt mildly short of breath. No chest pain. No fever or upper respiratory symptoms. She reports nausea but denies vomiting, abdominal pain, or diarrhea. She sees a crab steamer for unspecified problems and does not have a primary care doctor. PFSH <MONICA Jacinto - Last Filed: 07/10/24 14:38> [facility] Medical History EP (ectopic ) Palpitations Wears glasses Alcohol use Marijuana use Restless legs Migraine headache Non-smoker Asthma Shortness of breath on exertion Leg cramps History of pain when walking Bulimia nervosa, purging type Generalized anxiety disorder Borderline personality disorder Major depressive disorder, recurrent severe without psychotic features Visit for suture removal Home Medications ?Medication ?Instructions ?Recorded ?Last Taken ?Type fluoxetine 20 mg capsule 40 mg PO DAILY 12/30/23 Unknown History ondansetron 4 mg disintegrating 4 mg PO TID PRN nausea and 03/08/24 Unknown Rx tablet vomiting #21 tabs oxycodone-acetaminophen 5 mg-325 1 tab PO Q6H PRN pain 3 days #12 03/08/24 Unknown Rx mg tablet (Percocet) tabs ergocalciferol (vitamin D2) 1,250 1,250 mcg PO QWEEK 07/10/24 Unknown History mcg (50,000 unit) capsule meloxicam 7.5 mg tablet 7.5 mg PO DAILY PRN pain 07/10/24 Unknown History metoprolol succinate 50 mg 50 mg PO DAILY 07/10/24 Unknown History tablet,extended release 24 hr Allergy/AdvReac Type Severity Reaction Status Date / Time bupropion (From Wellbutrin) Allergy Rash Verified 07/10/24 10:43 Family History Grandmother Breast cancer Cancer skin Mother Hypertension Seizures Surgical History Hx of cholecystectomy Social History household members: none Smoking Status: Never smoker alcohol intake: current details: occasionally substance use type: marijuana caffeine: Yes additional social history: Boyfriend-Vishnu ESQUIVEL <MONICA Jacinto - Last Filed: 07/10/24 14:38> ROS ED ROS Narrative Constitutional: Negative for fever, chills, malaise. CVS: Negative for palpitations, chest pain, syncope. Respiratory: Positive for shortness of breath. Negative cough, orthopnea. GI: Negative for abdominal pain,vomiting. EXAM <MONICA Jacinto - Last Filed: 07/10/24 14:38> Physical Exam Narrative Exam Narrative: CONST: Patient sitting in no acute distress. EYES: Normal inspection. NECK: Normal inspection. RESP: No respiratory distress, CTAB. CVS: Regular rate and rhythm, no murmur, no gallop. ABD: Soft and nontender, no guarding or rebound, nondistended. SKIN: Color normal, no rash, warm, dry, intact. EXTREMITIES: Normal appearance, legs are symmetric without peripheral edema. No warmth or calf tenderness, no palpable cords. Soft compartments. 5/5 strength in dorsiflexion and plantarflexion, normal sensation, 2+ DP pulses. NEURO: Alert and answering questions appropriately. PSYCH: Normal affect. Const Vital Signs: 07/10/24 10:43 07/10/24 11:03 07/10/24 13:17 Temperature 98.2 F Temperature Source Temporal Pulse Rate 111 H 104 H Respiratory Rate 20 H 20 H Respiratory Pattern Normal Blood Pressure 166/101 H 152/79 H Blood Pressure Mean 122 103 Pulse Ox 100 99 Oxygen Delivery Method Room Air Room Air 07/10/24 14:13 Temperature 97 F L Temperature Source Pulse Rate 98 Respiratory Rate 16 Respiratory Pattern Blood Pressure 143/88 H Blood Pressure Mean 106 Pulse Ox 98 Oxygen Delivery Method <Dr. Arvin Segundo DO - Last Filed: 07/12/24 14:57> Physical Exam Const Vital Signs: 07/10/24 10:43 07/10/24 11:03 07/10/24 13:17 Temperature 98.2 F Temperature Source Temporal Pulse Rate 111 H 104 H Respiratory Rate 20 H 20 H Respiratory Pattern Normal Blood Pressure 166/101 H 152/79 H Blood Pressure Mean 122 103 Pulse Ox 100 99 Oxygen Delivery Method Room Air Room Air 07/10/24 14:13 Temperature 97 F L Temperature Source Pulse Rate 98 Respiratory Rate 16 Respiratory Pattern Blood Pressure 143/88 H Blood Pressure Mean 106 Pulse Ox 98 Oxygen Delivery Method [facility] [place] <MONICA Jacinto - Last Filed: 07/10/24 14:38> [facility] Narrative Medical decision making narrative: 19-year-old female was evaluated for shortness of breath and concerned for bilateral leg edema. She appears well and nontoxic. She was initially hypertensive at 166/101, HR 111, otherwise normal vital signs. She speaking full sentences in no distress. Heart is regular and lungs are clear. I do not think she has lower extremity edema; I think this is due to her body habitus. Her legs are symmetric without pitting edema and have no warmth or tenderness. Neurovascularly intact. All of her screening labs are unremarkable including CBC, BMP, BNP. EKG is nonischemic and troponin is less than 3. D-dimer was elevated so CTA was obtained and is negative. I recommended she follow-up with her primary care doctor and she was discharged in stable condition. Lab Data Attestation: I reviewed the patient's lab results. Labs: Laboratory Results - last 24 hr 07/10/24 07/10/24 11:40 11:47 WBC 10.6 RBC 4.54 Hgb 12.7 Hct 37.8 MCV 83.3 MCH 28.0 MCHC 33.6 RDW Std Deviation 42.8 RDW Coeff of Dangelo 14.1 Plt Count 349 MPV 8.5 Immature Gran % (Auto) 0.800 Neut % (Auto) 66.6 Lymph % (Auto) 26.3 Conway % (Auto) 3.1 Eos % (Auto) 2.7 Baso % (Auto) 0.5 Absolute Neuts (auto) 7.0 Absolute Lymphs (auto) 2.79 Nucleated RBC % 0 D-Dimer Quant (PE/DVT) 0.59 H* Sodium 140 Potassium 3.9 Chloride 109 H Carbon Dioxide 26.0 Anion Gap 5 BUN 13 Creatinine 0.71 Estim Creat Clear Calc 173.85 Est GFR (MDRD) Af Amer 134 Est GFR (MDRD) Non-Af 111 BUN/Creatinine Ratio 18.4 Glucose 114 H Calcium 9.2 Troponin I High Sens < 3 L B-Natriuretic Peptide 7.9 Serum , Qual NEGATIVE Radiography Diagnostic Testing: Clinical Impression(s) from Imaging Studies Chest X-Ray 07/10/24 11:50 IMPRESSION: Normal x-ray examination of the chest. Electronically Signed: Demetris Riojas MD at 12:23 EST , Chest CTA 07/10/24 12:07 IMPRESSION: Normal CTA chest examination, without a demonstrated pulmonary embolism or arterial dissection. Electronically Signed: Demetris Riojas MD at 14:00 EST , ED attending interpretation of 2 view chest x-ray shows normal heart size, no infiltrate, edema or effusion. EKG Initial EKG: Attestation: I personally reviewed and interpreted this EKG as follows: Interpretation: No Acute Injury Pattern and Sinus Tachycardia Comments: Sinus tachycardia at 101 bpm Normal intervals, no acute ischemic changes <Dr. Arvin Segundo, DO - Last Filed: 07/12/24 14:57> [facility] Narrative Medical decision making narrative: 19-year-old female was evaluated for shortness of breath and concerned for bilateral leg edema. She appears well and nontoxic. She was initially hypertensive at 166/101, HR 111, otherwise normal vital signs. She speaking full sentences in no distress. Heart is regular and lungs are clear. I do not think she has lower extremity edema; I think this is due to her body habitus. Her legs are symmetric without pitting edema and have no warmth or tenderness. Neurovascularly intact. All of her screening labs are unremarkable including CBC, BMP, BNP. EKG is nonischemic and troponin is less than 3. D-dimer was elevated so CTA was obtained and is negative. I recommended she follow-up with her primary care doctor and she was discharged in stable condition. Supervisory Physician Note Patient was seen and examined with the Advanced Practice Provider. Nursing notes and vital signs have been reviewed. Pertinent old records have been reviewed. I agree with the essential elements of the SILVIO's history, physical exam, assessment, and plan. The differential diagnosis and management options were discussed with the SILVIO. I participated in determining and agree with the management, procedures, final impression and disposition as documented. See changes noted by me. Please see addendum or separate note for any additional de tails. Impression: 1. Reported bilateral peripheral edema 2. Shortness of breath Lab Data Labs: Laboratory Results - last 24 hr 07/10/24 07/10/24 11:40 11:47 WBC 10.6 RBC 4.54 Hgb 12.7 Hct 37.8 MCV 83.3 MCH 28.0 MCHC 33.6 RDW Std Deviation 42.8 RDW Coeff of Dangelo 14.1 Plt Count 349 MPV 8.5 Immature Gran % (Auto) 0.800 Neut % (Auto) 66.6 Lymph % (Auto) 26.3 Conway % (Auto) 3.1 Eos % (Auto) 2.7 Baso % (Auto) 0.5 Absolute Neuts (auto) 7.0 Absolute Lymphs (auto) 2.79 Nucleated RBC % 0 D-Dimer Quant (PE/DVT) 0.59 H* Sodium 140 Potassium 3.9 Chloride 109 H Carbon Dioxide 26.0 Anion Gap 5 BUN 13 Creatinine 0.71 Estim Creat Clear Calc 173.85 Est GFR (MDRD) Af Amer 134 Est GFR (MDRD) Non-Af 111 BUN/Creatinine Ratio 18.4 Glucose 114 H Calcium 9.2 Troponin I High Sens < 3 L B-Natriuretic Peptide 7.9 Serum , Qual NEGATIVE Radiography Diagnostic Testing: Clinical Impression(s) from Imaging Studies Chest X-Ray 07/10/24 11:50 IMPRESSION: Normal x-ray examination of the chest. Electronically Signed: Demetris Riojas MD at 12:23 EST , Chest CTA 07/10/24 12:07 IMPRESSION: Normal CTA chest examination, without a demonstrated pulmonary embolism or arterial dissection. Electronically Signed: Demetris Riojas MD at 14:00 EST , Discharge Plan Triage Chief Complaint: Edema ED Midlevel Provider: Karen Mayes ED Provider: Arvin Segundo Dx/Rx/DC Orders Clinical Impression: Dyspnea Instructions: ED Dyspnea, ED Peripheral Edema, Bilateral Prescriptions: No Action ondansetron 4 mg tablet,disintegrating 4 mg PO TID PRN (Reason: nausea and vomiting) Qty: 21 0RF oxycodone-acetaminophen [Percocet] 5-325 mg tablet 1 tab PO Q6H PRN (Reason: pain) 3 Days Qty: 12 0RF fluoxetine 20 mg capsule 40 mg PO DAILY metoprolol succinate 50 mg tablet extended release 24 hr 50 mg PO DAILY meloxicam 7.5 mg tablet 7.5 mg PO DAILY PRN (Reason: pain) ergocalciferol (vitamin D2) 1,250 mcg (50,000 unit) capsule 1,250 mcg PO QWEEK Primary Care Provider: Nikki Grey Referrals: Nikki Grey, [facility] [Primary Care Provider] - Activity Restrictions/Additional Instructions: All of your screening tests today look normal. There is no sign of heart attack or blood clots regarding her shortness of breath. Your blood pressure has been elevated here. I recommend you follow-up with a primary care doctor for further evaluation of your general health. Print Language: Fijian Disposition Disposition: Home, Self Care Discharge Date/Time: 07/10/24 14:15
--- NOTE | 2024-07-10 11:50 | RAD_ITS ---
STUDY: X-RAY CHEST REASON FOR EXAM: Female, 19 years old. Dyspnea TECHNIQUE: PA and lateral views of the chest. COMPARISON: None. FINDINGS: The lungs are clear and expanded. There is no demonstrated pleural abnormality. Normal size heart. Normal mediastinum and kimmie. Normal visualized pulmonary arteries. Normal visualized aortic arch and descending thoracic aorta. Normal visualized thoracic spine. Normal visualized ribs, clavicles, and shoulders. There is no demonstrated abnormality of the visualized soft tissue structures of the upper abdomen. RAD/Chest PA and Lateral IMPRESSION: Normal x-ray examination of the chest. Electronically Signed: Demetris Riojas MD at 12:23 EST ,
[2024-07-10 11:51] LABS: Absolute Lymphocyte Count 2.79 X10^3/uL (0.83-4.51); Basophil# 0.05 X10^3/uL; Basophil% 0.5 % (0-1); Eosinophil# 0.29 X10^3/uL; Eosinophils% 2.7 % (0-5); Hematocrit 37.8 % (37-47); Hemoglobin 12.7 g/dL (12.0-15.0); Lymphocyte # 2.79 X10^3/ul (0.83-4.51); Lymphocyte % 26.3 % (19-41); Mean Corp Hgb Conc 33.6 g/dL (32-36); Mean Corpuscular Volume 83.3 fL (81-99); Mean Platelet Vol. 8.5 fl (6.2-12.0); Monocyte# 0.33 X10^3/uL; Monocyte% 3.1 % (0-10); NRBC Flagged by Analyzer 0 % (0-5); Neutrophil # 7.04 X10^3/uL (2.7-7.7); Neutrophil % 66.6 % (47-70); Platelet Count 349 K/mm3 (150-450); RBC Distribution Width CV 14.1 % (11.6-14.6); RBC Distribution Width SD 42.8 fl (35.1-43.9); Red Blood Count 4.54 M/mm3 (4.2-5.4); White Blood Count 10.6 K/mm3 (4.4-11.0)
[2024-07-10 12:03] LABS: BNP,B-Type NATRIURETIC PEPTIDE 7.9 pg/mL (0-100); D-Dimer Quantitative (DVT/PE) 0.59 FEU/ug/m (0.27-0.49)
[2024-07-10 12:07] LABS: Anion Gap 5 (5-15); BUN 13 mg/dL (7-18); BUN/Creat Ratio 18.4 RATIO (10-20); Calcium,Total 9.2 mg/dL (8.5-10.1); Chloride 109 mmol/L (98-107); Creatinine, Serum 0.71 mg/dL (0.55-1.02); EST Glomerular Filtration Rate 111 mL/min (>60); Est Glom Filt Rate - Afr Amer 134 mL/min (>60); Estimated Creatinine Clearance 173.85 ml/min; Glucose 114 mg/dL (74-106); Potassium 3.9 mmol/L (3.5-5.1); Sodium Level 140 mmol/L (136-145); Troponin-I HS < 3 pg/mL (3.0-54.0)
--- NOTE | 2024-07-10 12:07 | CT_ITS ---
STUDY: CTA CHEST REASON FOR EXAM: Female, 19 years old. dyspnea RADIATION DOSAGE (If Supplied By Facility): CTDIvol = ( 11.47 ) mGy, DLP = ( 498.69 ) mGycm TECHNIQUE: The examination was performed with the intravenous administration of IV 100mL Isovue-370. Post-processing of the angiographic images was performed, with multiplanar reformation and 3D reconstruction. Individualized dose optimization techniques were used for this CT. COMPARISON: Comparison is made with prior study dated December 30, 2023. FINDINGS: Normal enhancement of the main pulmonary artery and right and left pulmonary arteries. Normal enhancement of the bilateral peripheral pulmonary arteries. There is no demonstrated pulmonary embolism. Normal thoracic aorta and visualized great vessels. There is no demonstrated aortic dissection. Normal heart and pericardium. Normal mediastinum. Normal hilar regions. Normal visualized trachea and bronchi. The lungs are well expanded. Normal pulmonary parenchyma. Normal pleura. Normal chest wall structures. Normal osseous structures. Normal visualized upper abdomen. CT/CTA Chest W/WO Contrast IMPRESSION: Normal CTA chest examination, without a demonstrated pulmonary embolism or arterial dissection. Electronically Signed: Demetris Riojas MD at 14:00 EST ,
[2024-07-10 12:16] LABS: Internal QC Validated? YES +Cl - CLEAR BKGD; Pregnancy, Serum, hCG Quali. NEGATIVE Negative
[2024-07-10] MEDS: 0.9% Normal Saline (1000mL) 1,000 ML 999 ML IV (12:22)
[2024-07-10 13:17] VITALS: BP 152/79; PULSE 104; RESP 20; O2SAT 99
[2024-07-10 14:13] VITALS: BP 143/88; PULSE 98; RESP 16; TEMP 36.1; O2SAT 98
== END 2024-07-10 14:15 | disposition home or self-care (01) ==
PROVIDERS: Physician Assistant; Emergency Provider Surgery; PCP Nurse Practitioner Family; Visit Provider Surgery
DX: R60.0 Localized edema (principal); R06.02 Shortness of breath

== ENCOUNTER → 2024-08-05 | Outpatient (CLI) | payer OTHER, SELFPAY ==
[2024-08-05 17:08] LABS: Erythrocyte Sedimentation Rate 14 mm/hr (0-30)
[2024-08-05 17:20] LABS: BNP,B-Type NATRIURETIC PEPTIDE 53.2 pg/mL (0-100)
[2024-08-05 17:28] LABS: Hemoglobin A1c 5.2 % (3.8-5.6)
[2024-08-07 11:08] LABS: Anti-Centromere B Ab <0.2 AI (0.0-0.9); Anti-Chromatin <0.2 AI (0.0-0.9); Anti-Jo <0.2 AI (0.0-0.9); Anti-Scleroderma-70 AB <0.2 AI (0.0-0.9); Anti-dsDNA Ab 1 IU/mL (0-9); RNP Ab 0.2 AI (0.0-0.9); SJOGREN'S Anti-SS-A test < 0.2 AI (0.0-0.9); SJOGREN'S Anti-SS-B test < 0.2 AI (0.0-0.9); Smith Ab <0.2 AI (0.0-0.9)
== END | disposition home or self-care (01) ==
LOC: VSLAB 13:35
PROVIDERS: PCP Nurse Practitioner Family; Visit Provider Nurse Practitioner Family
DX: R63.5 Abnormal weight gain (principal); M35.3 Polymyalgia rheumatica
CPT/HCPCS: 36415; 83036; 83880; 84443; 85652; 86140; 86225; 86235

== ENCOUNTER → 2024-09-03 | Outpatient (CLI) | payer OTHER, SELFPAY ==
[2024-09-03 12:43] LABS: Absolute Lymphocyte Count 2.84 X10^3/uL (0.83-4.51); Basophil# 0.07 X10^3/uL; Basophil% 0.7 % (0-1); Eosinophil# 0.42 X10^3/uL; Eosinophils% 4.4 % (0-5); Hematocrit 38.4 % (37-47); Hemoglobin 12.8 g/dL (12.0-15.0); Lymphocyte # 2.84 X10^3/ul (0.83-4.51); Lymphocyte % 29.5 % (19-41); Mean Corp Hgb Conc 33.3 g/dL (32-36); Mean Corpuscular Hgb 27.6 pg (27.0-32.0); Mean Corpuscular Volume 82.9 fL (81-99); Mean Platelet Vol. 8.6 fl (6.2-12.0); Monocyte# 0.32 X10^3/uL; Monocyte% 3.3 % (0-10); NRBC Flagged by Analyzer 0 % (0-5); Neutrophil # 5.95 X10^3/uL (2.7-7.7); Neutrophil % 61.7 % (47-70); Platelet Count 382 K/mm3 (150-450); RBC Distribution Width CV 13.9 % (11.6-14.6); RBC Distribution Width SD 41.4 fl (35.1-43.9); Red Blood Count 4.63 M/mm3 (4.2-5.4); White Blood Count 9.6 K/mm3 (4.4-11.0)
[2024-09-03 13:17] LABS: ALB/GLOB Ratio 1.4 RATIO (0.9-2.4); AST(SGOT) 23 U/L (<=31); Alanine Aminotransfer ALT/SGPT 16 U/L (<=34); Albumin, Serum 4.3 g/dL (3.5-5.0); Alkaline Phosphatase 112 U/L (35-104); Anion Gap 12 (5-15); BUN 13 mg/dL (4-19); BUN/Creat Ratio 17.9 RATIO (10-20); Calcium,Total 9.4 mg/dL (7.6-11.0); Carbon Dioxide 21.8 mmol/L (21.0-32.0); Chloride 105 mmol/L (98-108); EST Glomerular Filtration Rate 126 (>60); Glucose 105 mg/dL (70-99); Potassium 4.1 mmol/L (3.3-5.1); Protein, Total 7.3 g/dL (5.9-8.4); Sodium Level 139 mmol/L (133-145); Total Bilirubin 0.49 mg/dL (0.00-1.30)
[2024-09-03 13:20] LABS: Vitamin D,25 Hydroxy 13.9 ng/mL (30-100)
== END | disposition home or self-care (01) ==
LOC: VSLAB 11:26
PROVIDERS: PCP Nurse Practitioner Family
DX: E55.9 Vitamin D deficiency, unspecified (principal); R53.82 Chronic fatigue, unspecified
CPT/HCPCS: 36415; 80053; 82306; 84443; 85025

== ENCOUNTER → 2024-09-03 | Outpatient (CLI) | payer OTHER, SELFPAY ==
--- NOTE | 2024-09-03 12:24 | VDLE_ITS ---
Reason For Study Reason For Study: Left leg pain Procedure LEFT This is a venous duplex using B-mode, color flow and GSV is normal. spectral Doppler. CFV is compressible, spontaneous, phasic, competent, Exam performed in department. and demonstrates normal augmentation. A preliminary report was called and/or faxed to [facility] FV is compressible, spontaneous, phasic, competent RN ADVICE-C. and demonstrates normal augmentation. POP V is compressible, spontaneous, phasic, competent and demonstrates normal augmentation. T/P Trunk is compressible. PTV is compressible. LT PerV is compressible. VL/Venous Duplex US, Unilateral Interpretation Summary Deep veins of the left lower extremity are patent and compressible segmentally. There is no evidence of left lower extremity deep vein thrombosis. Valvular competence appears intact within the p roximal deep venous system on the left . The left great saphenous vein appears patent and compressible segmentally. Ordering Physician: Cristo Cox Referring Physician: Nikki Grey Performed By: Isidra Poon RVT
== END | disposition home or self-care (01) ==
LOC: CVS 12:16
PROVIDERS: PCP Nurse Practitioner Family
DX: M79.662 Pain in left lower leg (principal)
CPT/HCPCS: 93971

== ENCOUNTER 2024-09-14 01:23 | Emergency (ER) | payer OTHER, SELFPAY ==
[2024-09-14 01:24] VITALS: BP 160/82; PULSE 117; RESP 16; TEMP 36.7; O2SAT 99; BMI 53.0
--- NOTE | 2024-09-14 02:14 | CT_ITS ---
PROCEDURE: SPINE LUMBAR WITHOUT CONTRAST 09/14/2024 REASON FOR EXAM: LUMBAR RADICULOPATHY TECHNIQUE: Noncontrast lumbar spine CT with coronal and sagittal reformatted images COMPARISON: None available FINDINGS: 5 [id number] lumbar vertebral type bodies identified. No fracture or malalignment. The disc spaces appear within limits. Symmetric appearing SI joints appear within limits. Intrauterine device appears centrally located. Abdominal aorta and visualized retroperitoneum appears unremarkable on noncontrast imaging. Retroaortic left renal vein, incidental anatomic variant. Partially imaged kidneys appear within limits without stones or hydronephrosis identified. CT/Spine Lumbar without Contrast IMPRESSION: 5 [id number] lumbar vertebral type bodies identified. No fracture or vi lignment. The disc spaces appear within limits. Symmetric appearing SI joints appear within limits. Reading Location: [id number]
--- NOTE | 2024-09-14 03:35 | EDS_ITS ---
HPI History of Present Illness Chief Complaint: Back Informant: patient Narrative Narrative: Patient is a 19-year-old female with past medical history of anxiety and depression who states that over the past few months she has been having increased swelling and pain to her left leg. She denies any history of diagnosed lymphedema or congestive heart failure. She denies any recent trauma. She was seen in the ER roughly 10 days ago and had blood work and an ultrasound at that time which revealed no DVT and blood work revealed no signs of infection or electrolyte abnormality or kidney function changes. Patient states there is been no repeat trauma but she feels her pain has worsened and now is radiating from the left low back down to the ankle/toes. She denies any loss of bowel or bladder control or IV drug use but with the worsening symptoms comes in for evaluation [facility] Medical History EP (ectopic ) Palpitations Wears glasses Alcohol use Marijuana use Restless legs Migraine headache Non-smoker Asthma Shortness of breath on exertion Leg cramps History of pain when walking Bulimia nervosa, purging type Generalized anxiety disorder Borderline personality disorder Major depressive disorder, recurrent severe without psychotic features Visit for suture removal Home Medications ?Medication ?Instructions ?Recorded ?Last Taken ?Type metoprolol succinate 50 mg 25 mg PO DAILY 07/10/24 Unk nown History tablet,extended release 24 hr folic acid 1 mg tablet 2 mg PO QDAY 09/12/24 Unknow n History methotrexate sodium (PF) 25 mg/mL 12.5 mg IM Q7D 09/12 Unknown History injection solution penicillin V potassium 500 mg 500 mg PO BID 10 days #2 0 tabs 09/12/24 Unknown Rx tablet cyclobenzaprine 10 mg tablet 10 mg PO TID PRN muscle s pasm 09/14/24 Unknown History meloxicam 15 mg tablet 15 mg PO DAILY 09/14/24 Unkn own History Allergy/AdvReac Type Severity Reaction Status Date / Time bupropion (From Wellbutrin) Allergy Rash Verified 09/14/24 01:24 Family History Grandmother Breast cancer Cancer skin Mother Hypertension Seizures Surgical History Hx of cholecystectomy Social History household members: none Smoking Status: Never smoker alcohol intake: current details: occasionally substance use type: marijuana caffeine: Yes additional social history: Boyfriend-Vishnu ESQUIVEL ROS ED Constitutional Constitutional ED: Denies chills or fever(s) Eyes Eyes: Denies change in vision ENT ENT ED: Denies sore throat Cardiovascular Cardiovascular: Denies chest pain Respiratory/Chest Respiratory/Chest: Denies cough or dyspnea Gastrointestinal Gastrointestinal: Denies abdominal pain, diarrhea, nausea or vomiting Genitourinary Genitourinary ED: Denies dysuria or hematuria Musculoskeletal Musculoskeletal: Reports back pain and other Details: Positive left leg pain and swelling Integumentary Denies Abrasions or rash Neurologic Neurologic: Reports paresthesias; Denies headache(s) Hematologic/Lymphatic Hematologic/Lymphatic: Denies easy bleeding or easy bruising EXAM Physical Exam Const Vital Signs: 09/14/24 01:24 09/14/24 03:40 Temperature 98.1 F Temperature Source Oral Pulse Rate 117 H Respiratory Rate 16 Blood Pressure 160/82 H 125/78 H Blood Pressure Mean 108 93 Pulse Ox 99 Positive well nourished, well developed and obese General Appearance ED: well developed; Negative for pallor Nutritional Appearance: obese HEENT HEENT Narrative: Normocephalic atraumatic Eyes PERRL and EOMs intact bilaterally General Eye ED: Negative for scleral icterus Neck supple and no JVD Resp normal respiratory effort and clear to auscultation bilaterally Cardio regular rate and regular rhythm Rate: other Other Details: Heart is regular rate and rhythm without murmurs rubs or gallops Radial and carotid pulses are equal and symmetric Back/Spine Back/Spine Narrative: No bony deformity or step-off of the thoracic or lumbar spine No overlying soft tissue changes to suggest trauma or infection Extremity Extremity Narrative: Left lower extremity is neurovascularly intact There is mild and asymmetric nonpitting edema of the left leg compared to the right. No saddle anesthesia. Negative straight leg raise. No clonus or Babinski. Patellar reflexes are plus 3 out of 4 bilaterally. Neuro oriented x3 and CN's II-XII intact bilaterally Sensorium / Orientation: alert Psych mental status grossly normal Skin no rashes or lesions noted and no wounds General Skin Exam: Negative for jaundice or pallor MDM MDM MDM Narrative Medical decision making narrative: Patient arrived to the ER hypertensive but otherwise with stable vitals. She reports the symptoms have been present for multiple months. She denies loss of bowel or bladder control or IV drug use going against cauda equina or epidural abscess. She states has been no recent intervention or procedures going against discitis. She denies any history of IV drug use also going against osteomyelitis. She was worked up roughly 10 days ago and venous duplex confirms no DVT and lab work confirms no acute kidney injury or electrolyte abnormality. As patient could have a spondylolisthesis spinal stenosis or ruptured disc or foraminal stenosis leading to nerve's compression I do like to perform a noncontrast CT scan. This revealed no acute finding. Therefore at this time she does not have infectious changes by history or exam she has been worked up for DVT as well as [place] abnormality recently which was normal and she is neurovascular intact at this time going against arterial occlusion there is no need for further intervention and she can be safely discharged home with outpatient follow-up History & Record Review Discussion w/independent historian: Patient Radiography Diagnostic Testing: Clinical Impression(s) from Imaging Studies Lumbar Spine CT 09/14/24 02:14 IMPRESSION: 5 [id number] lumbar vertebral type bodies identified. No fracture or malalignment. The disc spaces appear within limits. Symmetric appearing SI joints appear within limits. Reading Location: [facility] Discharge Plan Triage Chief Complaint: Back ED Provider: Remy Sawyer Dx/Rx/DC Orders Clinical Impression: Low back pain, Lumbar radiculopathy, Anxiety and depression, Peripheral edema Instructions: Understanding Lumbar Radiculopathy Prescriptions: No Action methotrexate sodium (PF) 25 mg/mL solution 12.5 mg IM Q7D Patient Comments: [NO ORIGINAL SIG] folic acid 1 mg tablet 2 mg PO QDAY penicillin V potassium 500 mg tablet 500 mg PO BID 10 Days Qty: 20 0RF Rx Instructions: no methotrexate during antibiotic therapy and usually none for 7 days after- check with your access liaison meloxicam 15 mg tablet 15 mg PO DAILY cyclobenzaprine 10 mg tablet 10 mg PO TID PRN (Reason: muscle spasm) metoprolol succinate 50 mg tablet extended release 24 hr 25 mg PO DAILY Primary Care Provider: Nikki Grey Referrals: Nikki Grey, GEOSCIENCES PROFESSOR-C [Primary Care Provider] - Activity Restrictions/Additional Instructions: Your CT scan does not show any signs of spinal stenosis or degenerative disc disease or a ruptured disc. However based on your symptoms you may still have nerve's compression and therefore follow-up with your family doctor to discuss MRI of your low back or nerve conduction studies. Return to the ER should you have any further concerns Print Language: Slovak Disposition Disposition: Home, Self Care Discharge Date/Time: 09/14/24 03:41
[2024-09-14 03:40] VITALS: BP 125/78
== END 2024-09-14 03:41 | disposition home or self-care (01) ==
PROVIDERS: Emergency Provider Emergency Medicine; PCP Nurse Practitioner Family; Visit Provider Emergency Medicine
DX: M54.16 Radiculopathy, lumbar region (principal); F32.A Depression, unspecified; F41.9 Anxiety disorder, unspecified; R60.0 Localized edema
CPT/HCPCS: 72131; 99282

== ENCOUNTER → 2024-09-30 | Outpatient (CLI) | payer OTHER, SELFPAY | END | disposition home or self-care (01) | LOC: PSN 06:54 | PROVIDERS: PCP Nurse Practitioner Family | DX: R20.2 Paresthesia of skin (principal); M79.662 Pain in left lower leg | CPT/HCPCS: 95886; 95913 ==

== ENCOUNTER → 2024-10-05 | Outpatient (CLI) | payer OTHER, SELFPAY ==
[2024-10-05 13:48] LABS: Absolute Lymphocyte Count 4.17 X10^3/uL (0.83-4.51); Absolute Neutrophil Count 6.3 X10^3/uL (2.0-7.7); Basophil# 0.06 X10^3/uL; Basophil% 0.5 % (0-1); Eosinophil# 0.38 X10^3/uL; Eosinophils% 3.4 % (0-5); Hematocrit 35.5 % (37-47); Hemoglobin 12.2 g/dL (12.0-15.0); Lymphocyte # 4.17 X10^3/ul (0.83-4.51); Lymphocyte % 36.9 % (19-41); Mean Corp Hgb Conc 34.4 g/dL (32-36); Mean Corpuscular Volume 81.6 fL (81-99); Mean Platelet Vol. 8.8 fl (6.2-12.0); Monocyte# 0.38 X10^3/uL; Monocyte% 3.4 % (0-10); NRBC Flagged by Analyzer 0 % (0-5); Neutrophil # 6.27 X10^3/uL (2.7-7.7); Neutrophil % 55.5 % (47-70); Platelet Count 331 K/mm3 (150-450); RBC Distribution Width CV 14.1 % (11.6-14.6); RBC Distribution Width SD 41.4 fl (35.1-43.9); Red Blood Count 4.35 M/mm3 (4.2-5.4); White Blood Count 11.3 K/mm3 (4.4-11.0)
[2024-10-05 14:34] LABS: ALB/GLOB Ratio 1.4 RATIO (0.9-2.4); AST(SGOT) 23 U/L (<=31); Alanine Aminotransfer ALT/SGPT 14 U/L (<=34); Albumin, Serum 3.9 g/dL (3.5-5.0); Alkaline Phosphatase 113 U/L (35-104); Anion Gap 9 (5-15); BUN 13 mg/dL (4-19); BUN/Creat Ratio 17.8 RATIO (10-20); Calcium,Total 8.9 mg/dL (7.6-11.0); Carbon Dioxide 22.5 mmol/L (21.0-32.0); Chloride 106 mmol/L (98-108); Creatinine, Serum 0.71 mg/dL (0.70-1.20); EST Glomerular Filtration Rate 123 (>60); Globulin 2.7 g/dL (2.2-4.2); Glucose 100 mg/dL (70-99); Protein, Total 6.6 g/dL (5.9-8.4); Sodium Level 138 mmol/L (133-145); Total Bilirubin 0.55 mg/dL (0.00-1.30)
== END | disposition home or self-care (01) ==
PROVIDERS: PCP Nurse Practitioner Family; Referring Provider Internal Medicine Rheumatology; Visit Provider Internal Medicine Rheumatology
DX: M06.4 Inflammatory polyarthropathy (principal); M79.7 Fibromyalgia; Z79.899 Other long term (current) drug therapy
CPT/HCPCS: 36415; 80053; 85025

== ENCOUNTER 2024-11-04 11:30 | Outpatient (RCR) | payer OTHER, SELFPAY ==
--- NOTE | 2024-09-30 12:43 | NEURO ---
NCS and/or EMG Patient Report Ordering Doctor: Hung Cox DATE OF SERVICE: 09/30/24 Alina presents with complaints of burning and tingling in the legs. Electrodiagnostic findings: Peroneal motor nerve demonstrates normal distal latency, amplitude and conduction velocity bilaterally. Tibial motor response within normal limits bilaterally. Normal tibial and peroneal F?waves. H?reflex normal bilaterally. Sensory responses are within normal limits. Needle EMG testing was performed in the lower limbs. All muscles tested showed no evidence of denervation with normal motor unit action potentials. Electrodiagnostic impression: This a normal electrodiagnostic study of the lower limbs. There is no electrodiagnostic evidence for peripheral neuropathy or lumbosacral radiculopathy. Multi Select Codes Neurology Neurology Interp Codes: 83208-60 Musc test done w/n test comp (interp) (2) and 81322-95 Nrv cndj test 11-12 studies (interp)
--- NOTE | 2024-09-30 12:43 | NEURO ---
NCS and/or EMG Patient Report Ordering Doctor: Hung Cox DATE OF SERVICE: 09/30/24 Alina presents with complaints of burning and tingling in the legs. Electrodiagnostic findings: Peroneal motor nerve demonstrates normal distal latency, amplitude and conduction velocity bilaterally. Tibial motor response within normal limits bilaterally. Normal tibial and peroneal F?waves. H?reflex normal bilaterally. Sensory responses are within normal limits. Needle EMG testing was performed in the lower limbs. All muscles tested showed no evidence of denervation with normal motor unit action potentials. Electrodiagnostic impression: This a normal electrodiagnostic study of the lower limbs. There is no electrodiagnostic evidence for peripheral neuropathy or lumbosacral radiculopathy. Multi Select Codes Neurology Neurology Interp Codes: 77933-30 Musc test done w/n test comp (interp) (2) and 56884-40 Nrv cndj test 11-12 studies (interp)
--- NOTE | 2024-09-30 14:21 | HP.PTEVAL_ITS ---
Patient's Visit Information Visit Information Visit Information: SHEILA GARCIA is a 19 year old F referred to Physical Therapy by JACQUELIN Bentley, DIRECT [employer]FF [employer]BER[employer] with a diagnosis of LBP with B LE radiculopathy. Date of Evaluation: 09/30/24 Physical Therapist: Conrado Williamson, PT, ATC Visit Plan Frequency: 2-3x /Week Duration: 4-6 Weeks Plan: Assess benefit of REIL. Add postural education, core stab ex's, and HEP Subjective Subjective: Pt reports she has had LBP for 4 months. Pt reports her pain had an insidious onset in nature. Pt notes her pain gets worse with activity. Pt reports she is limited with sweeping her floors at home and washing dishes secondary to pain. Pt reports walking more than 2 blocks will also cause her severe pain. Pt notes she had a CT scan which revealed no significant findings. Pt had an EMG performed today which she has not received the results from yet. Pt reports she experiences tingling and numbness in her LE's. L LE radiculopathy is worse than the right side. Pt reports the radiculopathy is worse from the knees downwards toward the feet. Pt reports occasional sleep difficulty at this time secondary to pain. Pt denies any prior Hx of MVA's or trauma to her lumbar spine. LBP is currently 4/10 while sitting here in the clinic, but elevates to 8/10 at worst. Pain LBP: Pain Intensity (Out of 10): 4 Pain Intensity Range: 8 Objective Objective: Neuro: B LE sensation is WNL to light touch MMT: B LE's are rated at 5/5 throughout ROM: L/S ROM is WNL in all planes. No pain with movement. Repeated movements: RFIS 10x1 increases LBP and radiates pain down B LE's. KLEBER 10x1 peripheralized B LE sx's Balance/Special Test Scores Lower Extremity Functional Score: 37 Goals Goal 1:: Decrease LBP x 50% to aid with ambulation Goal Time Frame: 4-6 Weeks Goal 2:: Decrease B LE radiculopathy x 50% to aid with house chores Goal Time Frame: 4-6 Weeks Goal 3:: Pt will verbally and physically display proper posture to aid with future episodes on LBP Goal Time Frame: 4-6 Weeks Goal 4:: I with HEP Goal Time Frame: 4-6 Weeks Rehabilitation Potential Physical Therapy Diagnosis: Pt has LBP and B LE radiculopathy secondary to L/S disc derangement Rehabilitation Potential: Good Anticipated Interventions Patient/Client Instruction: Educate patient on: Condition and Plan of Care For the Purpose of:: To improve self management Therapeutic Exercise to Include: Strength training, Body mechanics, Postural training, Dynamic Lumbar Stabilization and Selene Exercises For the Purpose of:: To decrease pain, To improve muscle performance and motor function and To increase tolerance to activity/condition/position Text: Thank you for the opportunity to evaluate your patient. For Medicare and Medicare HMO plans, please review the plan of care and approve it. It will need to be FAXED BACK to us at [phone] for Medicare purposes. For Medicare only, by signing this I certify the plan of care. Please let me know if there are questions or concerns regarding this plan of care. Physician Signature: Date:
--- NOTE | 2024-12-23 14:03 | HP.PT.NRP ---
Patient Information Patient Information: SHEILA GARCIA was seen in my office for initial evaluation on 09/30/24. The following Plan of Care was established for this patient: POC Established Initial Frequency: 2-3x /Week Initial Duration: 4-6 Weeks Anticipated Interventions Patient/Client Instruction: Educate patient on: Condition and Plan of Care For the Purpose of:: To improve self management Therapeutic Exercise to Include: Strength training, Body mechanics, Postural training, Dynamic Lumbar Stabilization and Selene Exercises For the Purpose of:: To decrease pain, To improve muscle performance and motor function and To increase tolerance to activity/condition/position Last Seen Last Seen: This patient was last seen in our office . Pertinent comments regarding their Physical therapy will appear below: Pt has not returned for greater than 30 days and is discontinued at this time. At this point I will be discontinuing this patient from physical therapy. I would be happy to see this patient again in the future if found appropriate by the physician. Thank you! Conrado Williamson, PT, ATC Balance/Gait/Functional tests Balance/Special Test Scores Lower Extremity Functional Score: 37
== END 2024-11-04 19:00 | disposition home or self-care (01) ==
LOC: PT 11:30
PROVIDERS: PCP Nurse Practitioner Family
DX: M54.50 Low back pain, unspecified (principal); R20.0 Anesthesia of skin; R20.2 Paresthesia of skin
CPT/HCPCS: 97110; 97161

== ENCOUNTER → 2024-11-30 | Outpatient (CLI) | payer OTHER, SELFPAY ==
--- OUTSIDE RECORDS SUMMARY | 2024-11-30 07:10 | XMS RPT_ITS | CCD ---
Author Organization [facility] Care Team Providers Care Easement Worker Name Role Phone DEANN MANUEL Unavailable Unavailable REFERRED, SELF Unavailable Unavailable DEANN MANUEL Unavailable Unavailable Dr. Rukhsana Luz Primary Care Provider Dr. Rukhsana Luz Referring Provider [facility] Attending Provider Clinic, Rukhsana Luz Primary Care Provider Un available Raúl AIR BOX TESTER, Nikki Primary Care Provider Raúl AIR BOX TESTER, Nikki Primary Care Provider RAÚL, NIKKI Primary Care Unavailable ANDREW DELGADILLO Attending Unavailable RAÚL, NIKKI Primary Care Unavailable Raúl AIR BOX TESTER, Nikki Primary Care Provider RAÚL SENIOR MERCHANDISER-OVERNIGHT BABYSITTER, NIKKI Primary Care Physicia n Unavailable Primary Care Provider UnavailRIGO Fortune Referring Unavailable RIGO JOINER Attending Unavailable CLARISSE BRODY MD Attending Unavailable RAÚL SENIOR MERCHANDISER-OVERNIGHT BABYSITTER, NIKKI Primary Care Unava ilable Clinic, Rukhsana Luz Primary Care Provider Un available Raúl AIR BOX TESTER, Nikki Unavailable CARLOTA CHOW DO Admitting Unavailable CARLOTA CHOW DO Attending Unavailable CARLOTA CHOW DO Primary Care Unavailable RAÚL SENIOR MERCHANDISER-OVERNIGHT BABYSITTER, NIKKI Primary Care Unava ilable ANDREA CARTER DO Attending Unavailable ANDREA CARTER DO Attending Unavailable RAÚL SENIOR MERCHANDISER-OVERNIGHT BABYSITTER, NIKKI Primary Care Unava ilable RAÚL, NIKKI Primary Care Unavailable RAÚL, NIKKI Primary Care Unavailable RAÚL, NIKKI Primary Care Unavailable Raúl [facility], Nikki Primary Care UnavailRemy Joe Attending Unavailable Tom Villar Attending Unavailable Raúl [facility], [facility] Primary Care Unavailabl e Arvin Segundo Attending Unavailabl e Raúl [facility], [facility] Primary Care Unavailabl e Raúl [facility], [facility] Primary Care Unavailabl e Beam [facility], Zebulun Attending Unavailable Beam [facility], [place]un Referring Unavailable Raúl [facility], [facility] Attending Unavailabl e Raúl VSC, Nikki Referring Unavailabl e Raúl [facility], [facility] Primary Care Unavailabl e Raúl [facility], [facility] Primary Care Unavailabl e Beam VSC, Zebulun Attending Unavailable Beam [facility]SC, [place] Referring Unavailable Raúl [facility], [facility] Primary Care Unavailabl e Beam [facility], [place]ulun Attending Unavailable Raúl [facility], [facility] Primary Care Unavailabl e Beam VSC, [place] Attending Unavailable Beam [facility]SC, [place] Referring Unavailable Raúl [facility], [facility] Primary Care Unavailabl e Remy Sawyer Attending Unavailable Raúl [facility], [facility] Primary Care Unavailabl e Remy Sawyer Attending Unavailable Raúl [facility], [facility] Primary Care Unavailabl e Beam [facility], [place]ebulun Attending Unavailable Beam [facility], [place] Referring Unavailable Raúl [facility], [facility] Primary Care Unavailabl e Mercedes Cox Referring Unavailable Mercedes Cox Attending Unavailable Raúl [facility], [facility] Attending Unavailabl e Raúl [facility], [facility] Referring Unavailabl e Raúl [facility], [facility] Primary Care Unavailabl e Raúl [facility], [facility] Primary Care Unavailabl e Beam VSC, Zebuluvinod Attending Unavailable Raúl AIR BOX TESTER, Nikki Referring Unavailable DunkirkShannon cao NP Attending Unavailable Raúl [facility], [facility] Primary Care Unavailabl e Christian Hale Attending Unavailable Raúl [facility], [facility] Primary Care Unavailabl e Raúl VSC, Nikki Referring Unavailabl e Corina Clay Attending Unavailabl e Raúl [facility], [facility] Primary Care Unavailabl e Raúl [facility], [facility] Primary Care Unavailabl e Eneida Echeverria Referring Unavailable Eneida Echeverria Attending Unavailable Raúl [facility], [facility] Primary Care Unavailabl e Eneida Echeverria Attending Unavailable Raúl [facility], [facility] Primary Care Unavailabl e Beam VSC, Zebulun Attending Unavailable Beam [facility], [place] Referring Unavailable Kenny Mercedes Referring Unavailable Gabriel Coxma Attending Unavailable [facility], [facility] Primary Care Unavailabl e Shan Brody Attending Unavailable Raúl [facility], [facility] Primary Care Unavailabl e Raúl [facility], [facility] Primary Care Unavailabl e Raúl VSC, Nikki Referring Unavailabl e Yesika Talley Attending Unavailable Raúl VS, Nikki Referring Unavailabl e Raúl [facility], [facility] Primary Care Unavailabl e Mahad Cárdenas Attending Unavailable Raúl [facility], [facility] Primary Care Unavailabl e Raúl [facility], [facility] Referring Unavailabl e Scott Lopez Attending Unavailable Raúl VS, [facility] Primary Care Unavailabl e Ricky Pillai Attending Unavailable Beam [facility], [place] Consulting Unavailable Beam [facility]SC, [place] Referring Unavailable Raúl VSC, Nikki Attending Unavailabl e Raúl [facility], [facility] Primary Care Unavailabl e Raúl C, Nikki Attending Unavailabl e Raúl VSC, Nikki Referring Unavailabl e Raúl [facility], [facility] Primary Care Unavailabl e Allergies Allergy Classification Reported Allergen(s) Allergy Type Date of Onset Reaction(s) Facility (18 sources) buPROPion; Translations: [BUPROPION] Drug Allergy 06-14-2022 Rash [facility] Work Phone: (1 source) buPROPion Drug Allergy [facility] Repository (1 source) buPROPion Drug Allergy 11-27-2024 [facility] Medications Current Medications Medication Drug Class(es) Dates Sig (Normalized) Sig (Original) acetaminophen 325 mg / oxyCODONE hydrochloride 5 mg oral tablet (1 source) Opioid Agonist Start: 06-24-2024 take 1 tablet by mouth every eight hours as needed oxyCODONE-acetamin ophen (PERCOCET) 5-325 mg tablet Take 1 tablet by mouth every 8 hours as needed. 06/24/2024 Active ARIPiprazole 2 mg oral tablet (20 sources) Atypical Antipsychotic Start: 10-27-2021 take 5 mg by mouth once daily Aripiprazole Active 5 MG PO DAILY October 27, 2021 8:54am Start: 10-01-2021 End: 10-27-2021 Aripiprazole Discontinued 2 MG DAILY September 30, 2021 11:00pm October 27, 2021 8:54am End: 07-10-2024 take 1 tablet by mouth once daily, then take 4 mg by mouth once daily ARIPiprazole (ABILIFY) 5 mg tablet Take 5 mg by mouth once daily. 4 mg once daily 07/10/2024 Discontinued Comment on above: Take 5 mg by mouth o nce daily. Take 5 mg by mouth o nce daily. 4 mg once daily cariprazine 1.5 mg oral capsule (1 source) Atypical Antipsychotic Start: take 1 capsule by mouth once daily Cariprazine (Vraylar) 1.5 mg capsule Active 1.5 MG PO DAILY July 09, 2022 12:00am cephalexin 500 mg oral tablet (1 source) Cephalosporin Antibacterial Start: End: cephalexin 500 mg oral tablet Dose : 500 mg = 1 tab(s), PO, BID, X 5 day(s), # 10 tab(s), 0 Refill(s), 02/22/24 9:43:00 AM EDT, 129.7 Start Date: 02/17/24 Stop Date: 02/22/24 Status: Ordered ergocalciferol 1.25 mg oral capsule (1 source) Provitamin D2 Compound Start: take 1 capsule by mouth every week ergocalciferol 50,000 unit capsule (VITAMIN D2, DRISDOL) Take 50,000 Units by mouth one time a week. 06/22/2024 Active FLUoxetine 20 mg oral capsule (8 sources) Serotonin Reuptake Inhibitor take 2 capsules by mouth once daily FLUoxetine (PROZAC) 20 mg capsule Take 40 mg by mouth once daily. Active End: 02-17-2024 take 1 capsule by mouth once daily FLUoxetine (PROZAC) 20 mg capsule Take 20 mg by mouth once daily. Active Comment on above: Take 20 mg by mouth once daily. meloxicam 15 mg oral tablet (8 sources) Nonsteroidal Anti-inflammatory Drug Start: take 1 tablet by mouth once daily meloxicam (MOBIC) 15 mg tablet Take 1 tablet by mouth once daily. 30 tablet 1 06/14/2022 Active Comment on above: Take 1 tablet by blaze th once daily. 24 hr metoprolol succinate 50 mg extended release oral tablet (1 source) beta-Adrenergic Danielito Start: 4 take 0.5 tablet by mouth every hour metoprolol succinate ER (TOPROL XL) 50 mg 24 hr tablet Take 0.5 tablets by mouth every afternoon. 06/10/2024 Active naproxen 500 mg oral tablet (5 sources) Nonsteroidal Anti-inflammatory Drug Start: 4 End: 4 take 1 tablet by mouth twice daily at mealtime as needed for pain naproxen (NAPROSYN) 500 mg tablet Take 1 tablet by mouth two times a day with meals for 20 doses. TAKE WITH FOOD Take as needed for pain 20 tablet 0 08/31/2023 09/10/2023 Active Start: 05-14-2022 End: 06-14-2022 take 1 tablet by mouth twice daily at mealtime naproxen (NAPROSYN) 500 mg tablet Indications: Right wrist pain Take 1 tablet by mouth twice daily with meals. 30 tablet 1 05/14/2022 06/14/2022 Discontinued (Changing Therapy/Dosage Form) Comment on above: Take 1 tablet by blaze th twice daily with meals. Take 1 tablet by blaze th two times a day with meals for 20 doses. TAKE WITH FOOD Take as needed for pain polyethylene glycol 3350 15197 mg powder for oral solution (2 sources) Osmotic Laxative Start: 4 End: 4 take 17 g by mouth once daily polyethylene glycol, PEG, 3350 (Miralax) 17 g packet Take 17 g by mouth daily for 7 days. 7 packet 02/18/2024 02/25/2024 Active propranolol hydrochloride 10 mg oral tablet (8 sources) beta-Adrenergic Danielito Start: 3 End: 5 take 10 mg by mouth twice daily Propranolol Active 10 MG PO TWICE A DAY July 09, 2022 12:00am Comment on above: Take 10 mg by mouth as needed. Completed/Discontinued Medications Medication Drug Class(es) Dates Sig (Normalized) Sig (Original) acetaminophen 325 mg / HYDROcodone bitartrate 5 mg oral tablet (8 sources) Opioid Agonist Start: 12-12-2021 End: 12-14-2022 HYDROcodone-acetami nophen (NORCO) 5-325 mg per tablet Take by mouth. 0 12/12/2021 12/14/2022 Discontinued Start: 12-12-2021 take 1 tablet by blaze th every six hours Hydrocodone-Acetaminophen Active 1 TABLE T PO EVERY 6 HOURS 12 April 09, 2022 Comment on above: Take by mouth. cyclobenzaprine hydrochloride 10 mg oral tablet (5 sources) Muscle Relaxant Start: 2023 End: 2024 take 1 tablet by mouth every eight hours as needed cyclobenzaprine (FLEXERIL) 10 mg tablet Take 1 tablet by mouth three times a day as needed for muscle spasm (or pain). 21 tablet 08/31/2023 07/10/2024 Discontinued Comment on above: Take 1 tablet by blaze th three times a day as needed for muscle spasm (or pain). 1 ml HYDROmorphone hydrochloride 1 mg/ml cartridge (2 sources) Opioid Agonist Start: 2023 End: 2023 take 0.5 mg by mouth once 0.5 mg, IntraVENous, Once, On Sat02/18/24 at 2115, For 1 dose, If oral and IV narcotics ordered, use oral first and only use IV if oral is ineffective or cannot take oral. Do Not give oral and IV within 1 hour of each other unless specifically ordered. iopamidol (Isovue-370) 76 % injection 75 mL (2 sources) Start: 2023 End: 2023 take 75 mL intravenously once as needed 75 mL, IntraVENous, IMG once PRN, contrast, Starting on Sat02/18/24 at 2239, For 1 dose ketorolac tromethamine 10 mg oral tablet (1 source) Nonsteroidal Anti-inflammatory Drug, Cyclooxygenase Inhibitor Start: 2023 End: 2024 take 1 tablet by mouth every eight hours as needed keTORolac (TORADOL) 10 mg tablet Take 10 mg by mouth every 8 hours as needed. 05/03/2024 07/10/2024 Discontinued omeprazole 40 mg delayed release oral capsule (7 sources) Proton Pump Inhibitor Start: 2021 End: 2021 take 40 mg by mouth once daily Omeprazole Discontinued 40 MG PO daily October 26, 2021 11:00pm November 21, 2021 12:46pm swallow whole; do not crush, chew, dissolve, cut, break 2 ml ondansetron 2 mg/ml injection (10 sources) Serotonin-3 Receptor Antagonist Start: 2023 End: 2023 4 mg, IntraVENous, Once, On Sat02/18/24 at 2115, For 1 dose Start: 12-12-2021 End: 12-14-2022 ondansetron orally disintegr ating (ZOFRAN ODT) 4 mg disintegrating tablet Take by mouth. 0 12/12/2021 12/14/2022 Discontinued Comment on above: Take by mouth. pantoprazole 40 mg delayed release oral tablet (4 sources) Proton Pump Inhibitor Start: 2 End: 3 take 1 tablet by mouth once daily pantoprazole DR (PROTONIX) 40 mg tablet Take 1 tablet by mouth once daily. 14 tablet 0 02/28/2022 12/14/2022 Discontinued Comment on above: Take 1 tablet by [facility] once daily. sertraline 50 mg oral tablet (10 sources) Serotonin Reuptake Inhibitor Start: 2 End: 3 sertraline (ZOLOFT) 50 mg tablet 50 mg. 0 10/01/2021 12/14/2022 Discontinued Start: 10-01-2021 Sertraline Act pao 50 MG DAILY September 30, 2021 11:00pm Comment on above: 50 mg. 50 ml sodium chloride 9 mg/ml injection (2 sources) Start: 02-18-20 End: 02-18-20 1,000 mL, IntraVENous, at 1,000 mL/hr, Administer over 1 Hours, Once, On Sat02/18/24 at 2115, For 1 dose topiramate 25 mg oral tablet (3 sources) Start: 01-13-20 End: 07-10-19 take 1 tablet by mouth once daily at bedtime topiramate (TOPAMAX) 25 mg tablet Take 25 mg by mouth daily at bedtime. 01/13/2024 07/10/2024 Discontinued traZODone hydrochloride 100 mg oral tablet (13 sources) Serotonin Reuptake Inhibitor Start: 12-18-19 End: 07-10-19 traZODone (DESYREL) 100 mg tablet Take by mouth. 12/17/2021 07/10/2024 Discontinued Comment on above: Take by mouth. 24 hr venlafaxine 37.5 mg extended release oral capsule (2 sources) Serotonin and Norepinephrine Reuptake Inhibitor Start: 06-04-20 End: 12-15-19 23 take 1 capsule by mouth once daily venlafaxine ER (EFFEXOR XR) 37.5 mg 24 hr capsule Take 37.5 mg by mouth once daily. 0 06/04/2022 12/14/2022 Discontinued Comment on above: Take 37.5 mg by mout h once daily. Problems Active Problems Problem Classification Problem Date Documented Da te Episodic/Chronic Anxiety disorders (5 sources) Anxiety; Translations: [Anxiety disorder, unspecified] Chronic Biliary tract disease (12 sources) Gallstone; Translations: [Calculus of gallbladder without cholecystitis without obstruction] Episodic Cardiac dysrhythmias (1 source) Paroxysmal tachycardia, unspecified; Translations: [Paroxysmal tachycardia, unspecified] Onset: 03-03-2024 Chronic Gastritis and duodenitis (6 sources) Gastritis; Translations: [Gastritis, unspecified, without bleeding] Episodic Genitourinary symptoms and ill-defined conditions (1 source) Increased frequency of urination; Translations: [Frequency of micturition] 02-17-2024 Episodic Headache; including migraine (2 sources) Headache; Translations: [Headache, unspecified headache type] Onset: 08-30-2023 08-26-2023 Episodic Malaise and fatigue (2 sources) Other fatigue; Translations: [Other fatigue] Onset: 07-09-2024 Episodic Mood disorders (4 sources) Depressive disorder; Translations: [Depression] Chronic Nausea and vomiting (5 sources) Nausea and vomiting; Translations: [Nausea with vomiting, unspecified] 07-10-2024 Episodic Nutritional deficiencies (1 source) Vitamin D deficiency, unspecified; Translations: [Vitamin D deficiency, unspecified] Onset: 09-13-2024 Chronic Other aftercare (6 sources) Surgical follow-up; Translations: [Encounter for removal of sutures] Episodic Other congenital anomalies (1 source) 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; Translations: [Other congenital malformations of upper limb(s), including shoulder girdle] Chronic Other connective tissue disease (1 source) Fibromyalgia; Translations: [Fibromyalgia] Episodic Other connective tissue disease (1 source) Pain in lower limb; Translations: [Pain in leg, unspecified] Onset: 07-27-2024 Episodic Other connective tissue disease (1 source) Pain in leg, unspecified; Translations: [Pain in leg, unspecified] Onset: 11-04-2024 Episodic Other connective tissue disease (1 source) Pain in left lower leg; Translations: [Pain in left lower leg] Onset: 09-13-2024 Episodic Other gastrointestinal disorders (6 sources) Constipation; Translations: [Constipation, unspecified] 02-18-2024 Episodic Other gastrointestinal disorders (2 sources) Constipation, unspecified; Translations: [Constipation, unspecified] Onset: 02-18-2024 Episodic Other gastrointestinal disorders (1 source) Dysphagia, unspecified; Translations: [Dysphagia, unspecified] Onset: 11-20-2024 Episodic Other lower respiratory disease (1 source) Dyspnea; Translations: [Shortness of breath] 07-10-2024 Episodic Other nervous system disorders (1 source) Other lack of coordination; Translations: [Other lack of coordination] Onset: 11-27-2024 Episodic Other nervous system disorders (2 sources) Paresthesia of skin; Translations: [Paresthesia of skin] Onset: 10-06-2024 Episodic Other non-traumatic joint disorders (1 source) Pain of right wrist; Translations: [Pain in right wrist] Episodic Residual codes; unclassified (1 source) Procedure not done; Translations: [Procedure and treatment not carried out, unspecified reason] 03-30-2024 Episodic Residual codes; unclassified (1 source) Bilateral lower limb edema; Translations: [Localized edema] 07-10-2024 Episodic Rheumatoid arthritis and related disease (1 source) Inflammatory polyarthropathy; Translations: [Inflammatory polyarthropathy] Onset: 10-08-2024 Chronic Unclassified (1 source) I'm having really weird symptoms in my head Onset: 08-29-2023 Unclassified (2 sources) Low back pain, unspecified; Translations: [Low back pain, unspecified] Onset: 09-21-2024 Viral infection (1 source) Viral disease; Translations: [Viral infection, unspecified] 09-02-2023 Episodic Past or Other Problems Problem Classification Problem Date Documented Da te Episodic/Chronic Abdominal pain (17 sources) Nonspecific abdominal pain; Translations: [Unspecified abdominal pain] Onset: 03-08-2024 Episodic Cardiac dysrhythmias (2 sources) Tachycardia; Translations: [Tachycardia, unspecified] Onset: 01-17-2024 07-10-2024 Episodic Disorders of teeth and jaw (2 sources) Other specified disorders of teeth and supporting structures; Translations: [Periapical abscess without sinus] Onset: 06-24-2024 Episodic E Codes: Other specified and classifiable (2 sources) Foreign body accident - orifice; Translations: [Foreign body accidentally entering other orifice] Other nutritional; endocrine; and metabolic disorders (1 source) Abnormal weight gain; Translations: [Abnormal weight gain] Onset: 08-19-2024 Episodic Other screening for suspected conditions (not mental disorders or infectious disease) (1 source) Elevated C-reactive protein (CRP); Translations: [Elevated C-reactive protein (CRP)] Onset: 08-13-2024 Episodic Residual codes; unclassified (1 source) Localized edema; Translations: [Localized edema] Onset: 07-29-2024 Episodic Residual codes; unclassified (1 source) Pain, unspecified; Translations: [Pain, unspecified] Onset: 07-23-2024 Episodic Results Test Name Value Interpretation Reference Range Facility Urgent Care Visit Reporton 0 11-27-2024 Urgent Care Visit Report [facility] [address], [address] [place] [address] OFFICE VISIT Date of Service: 11/27/24 MR#: [id number] Acct: [id number] Name: QUE MALIKEY MINERVA Rep #: [id number] : 2005 Provider: MONICA Valles Age/Sex: 19/F Location: [facility] Status: Signed Intake Vital Signs 09/14/24 01:24 11/27/24 10:46 Height 5 ft 4 in BP 120/60 Position Sitting Pulse 80 Temp 98.7 F Temp Source Oral Pulse Oximetry (%) 98 Oxygen Delivery Method room air Intake Visit Reasons: Nausea/vomiting Accompanied by: Self Allergies bupropion (From Wellbutrin) Allergy (Verified 11/27/24 10:52) Rash Medications ???Medication ???Instructions ???Recorded ???Confirmed ???Type metoprolol succinate 50 mg 25 mg PO DAILY 07/10/24 11/27/24 H istory tablet,extended release 24 hr folic acid 1 mg tablet 2 mg PO QDAY 09/12/24 11/27/24 His tory methotrexate sodium (PF) 25 mg/mL 12.5 mg IM Q7D 09/12/24 09/14/24 History injection solution cyclobenzaprine 10 mg tablet 10 mg PO TID PRN muscle spasm 08/2311/27/24 History meloxicam 15 mg tablet 15 mg PO DAILY 09/14/24 11/27/24 H istory duloxetine 60 mg capsule,delayed 60 mg PO QDAY 11/27/24 11/27/24 Hi story release promethazine 25 mg tablet 25 mg PO Q4-6H PRN nausea and 12/1611/27/24 Rx vomiting #20 tabs Nurse's Note: Patient has nausea and vomiting since Sat. Patient states she hasn't eaten anything but drinking has been ok. Patient has green mucus stool and abdominal pain that is upper abdominal. [facility] Medical History EP (ectopic ) Palpitations Wears glasses Alcohol use Marijuana use Restless legs Migraine headache Non-smoker Asthma Shortness of breath on exertion Leg cramps History of pain when walking Bulimia nervosa, purging type Generalized anxiety disorder Borderline personality disorder Major depressive disorder, recurrent severe without psychotic features Visit for suture removal Surgical History Hx of cholecystectomy Family History Grandmother Breast cancer Cancer skin Mother Hypertension Seizures Social History household members: none Smoking Status: Never smoker alcohol intake: current details: occasionally substance use type: marijuana caffeine: Yes additional social history: Boyfriend-Vishnu Female Reproductive History Menstrual Ectopics: 1 HPI HPI Details: ALINA MALIK, is a 19 F who presents to the office today for complaint of nausea, vomiting and diarrhea for the past 5 days. Patient denies hemoptysis, shortness of breath or difficulty needed. No hematochezia, hematemesis or hemoptysis. No pelvic pain, loss of bowel or bladder control. Patient states that the nausea and vomiting as well as diarrhea come on when she tries to eat food. No other associated symptoms or alleviating/aggravating factors. ROS Const Constitutional: Positive for other (ROS negative x6 except what was placed in HPI) Exam Const General: cooperative and healthy appearing [facility] Head: normocephalic and atraumatic Ears: hearing grossly normal bilaterally Face and sinus: face symmetric Eyes General: appearance normal, both eyes and all related structures Pupils: PERRL Resp Effort Inspection: normal respiratory effort Auscultation: Bilateral: Clear to Auscultation Cardio Rate: regular rate Rhythm: regular rhythm Heart Sounds: S1 normal and S2 normal GI Inspection: normal to inspection Auscultation: hyperactive bowel sounds Percussion: normal to percussion Palpation: soft, no hepatosplenomegaly, no guarding and nontender General: bimanual renal exam normal bilaterally and No CVA tenderness Skin General: no rashes or lesions noted Neuro General: patient alert and CN's II-XI intact bilaterally Psych Appearance: grossly normal Mental Status: mental status grossly normal Coding Level of Care Code Off vis,est,level 3 Diagnoses Gastroenteritis K52.9 Assessment and Plan Assessment and Plan (1) Gastroenteritis: Status: Acute Plan: Promethazine as prescribed today. Encouraged to get plenty of rest, drink lots of clear liquids, and use Tylenol or Ibuprofen (unless contraindicated) for fever and comfort. Patient also educated on other symptomatic management techniques. To be seen in 7-10 days if no improvement; sooner if worsening of symptoms. Patient advised of potential red flags and when appropriate to report to the ED. Patient verbalized understanding and agreement with all the above. Medications: New promethazine 25 (more content not included)... Normal [facility] 11-11-2024 [facility] Telephone (SLEW[facility]) ALINA MALIK ([id number]) 1 F Date Time Provider Department 11/11/24 MICAELA AGARWAL JR During your visit today, we recorded the following information about you: Lgoan Watson LPN 11/11/2024 9:24 AM Signed Referral from [facility]. Pt records scanned into chart. Logan Watson LPN Allergies As of Date: 11/11/2024 Noted Allergy Reaction WELLBUTRIN (BUPROPION) 06/14/2022 2 - Rash Date Reviewed: 07/10/2024 Reviewed by: Sandra Lemos MA - Fully Assessed Prescriptions as of 11/11/2024 - ergocalciferol 50,000 unit capsule (VITAMIN D2, DRISDOL) Take 50,000 Units by mouth one time a week. - oxyCODONE-acetaminophen (PERCOCET) 5-325 mg tablet Take 1 tablet by mouth every 8 hours as needed. - metoprolol succinate ER (TOPROL XL) 50 mg 24 hr tablet Take 0.5 tablets by mouth every afternoon. - FLUoxetine (PROZAC) 20 mg capsule Take 40 mg by mouth once daily. - meloxicam (MOBIC) 15 mg tablet Take 1 tablet by mouth once daily. Problem List As Of Date: 11/11/2024 (None) Encounter Status:Closed by LOGAN WATSON on 11/11/24 Normal [facility] CBC W/Diff, Automatedon 04- Absolute Lymph 4.17 X10 3/uL Normal 0.83-4.51 [facility] Comment on above: Performed By: #### L 501.5200, L500.3400, L500.2500, L100.0100, L501.2450, L700.6800 #### [facility] [address] [place], [address] Absolute Neut 6.3 X10 3/uL Normal 2.0-7.7 [facility] Comment on above: Performed By: #### L 501.5200, L500.3400, L500.2500, L100.0100, L501.2450, L700.6800 #### [facility] [address] [place], [address] Basophils/100 WBC (Bld) 0.5 % Normal 0-1 [facility] Comment on above: Performed By: #### L 501.5200, L500.3400, L500.2500, L100.0100, L501.2450, L700.6800 #### [facility] [address] [place], [address] Eosinophils/100 WBC (Bld) 3.4 % Normal 0-5 [facility] Comment on above: Performed By: #### L 501.5200, L500.3400, L500.2500, L100.0100, L501.2450, L700.6800 #### [facility] [address] [place], [address] Erythrocyte distribution width (RBC) [Ratio] 14.1 % Normal 11.6-14.6 [facility] Comment on above: Performed By: #### L 501.5200, L500.3400, L500.2500, L100.0100, L501.2450, L700.6800 #### [facility] [address] [place], [address] Hematocrit (Bld) [Volume fraction] 35.5 % Low 37-47 [facility] Comment on above: Performed By: #### L 501.5200, L500.3400, L500.2500, L100.0100, L501.2450, L700.6800 #### [facility] [address] [place], [address] Hemoglobin (Bld) [Mass/Vol] 12.2 g/dL Normal 12.0-15.0 [facility] Comment on above: Performed By: #### L 501.5200, L500.3400, L500.2500, L100.0100, L501.2450, L700.6800 #### [facility] [address] [place], [address] IG% 0.300 Normal 0.0-0.9 [facility] Comment on above: Result Comment: IG% - Immature Granulocytes (promyelocytes, myelocytes and metamyelocytes) > 1% indicates that a LEFT SHIFT is Present. Performed By: #### L 501.5200, L500.3400, L500.2500, L100.0100, L501.2450, L700.6800 #### [facility] [address] [place], [address] Lymphocytes/100 WBC (Bld) 36.9 % Normal 19-41 [facility] Comment on above: Performed By: #### L 501.5200, L500.3400, L500.2500, L100.0100, L501.2450, L700.6800 #### [facility] [address] [place], [address] MCH (RBC) [Entitic mass] 28.0 pg Normal 27.0-32.0 [facility] Comment on above: Performed By: #### L 501.5200, L500.3400, L500.2500, L100.0100, L501.2450, L700.6800 #### [facility] [address] [place], [address] MCHC (RBC) [Mass/Vol] 34.4 g/dL Normal 32-36 [facility] Comment on above: Performed By: #### L 501.5200, L500.3400, L500.2500, L100.0100, L501.2450, L700.6800 #### [facility] [address] [place], [address] MCV (RBC) [Entitic vol] 81.6 fL Normal 81-99 [facility] Comment on above: Performed By: #### L 501.5200, L500.3400, L500.2500, L100.0100, L501.2450, L700.6800 #### [facility] [address] [place], [address] Monocytes/100 WBC (Bld) 3.4 % Normal 0-10 [facility] Comment on above: Performed By: #### L 501.5200, L500.3400, L500.2500, L100.0100, L501.2450, L700.6800 #### [facility] [address] [place], [address] Neutrophils/100 WBC (Bld) 55.5 % Normal 47-70 [facility] Comment on above: Performed By: #### L 501.5200, L500.3400, L500.2500, L100.0100, L501.2450, L700.6800 #### [facility] [address] [place], [address] Nucleated RBC (Bld) [#/Vol] 0 10*3/uL Normal 0-5 [facility] Comment on above: Performed By: #### L 501.5200, L500.3400, L500.2500, L100.0100, L501.2450, L700.6800 #### [facility] [address] [place], [address] Platelet mean volume (Bld) [Entitic vol] 8.8 fL Normal 6.2-12.0 [facility] Comment on above: Performed By: #### L 501.5200, L500.3400, L500.2500, L100.0100, L501.2450, L700.6800 #### [facility] [address] [place], [address] Platelets (Bld) [#/Vol] 331 10*3/uL Normal 150-450 [facility] Comment on above: Performed By: #### L 501.5200, L500.3400, L500.2500, L100.0100, L501.2450, L700.6800 #### [facility] [address] [place], [address] RBC (Bld) [#/Vol] 4.35 10*6/uL Normal 4.2-5.4 [facility] Comment on above: Performed By: #### L 501.5200, L500.3400, L500.2500, L100.0100, L501.2450, L700.6800 #### [facility] [address] [place], [address] RDW SD 41.4 fl Normal 35.1-43.9 [facility] Comment on above: Performed By: #### L 501.5200, L500.3400, L500.2500, L100.0100, L501.2450, L700.6800 #### [facility] [address] [place], [address] WBC (Bld) [#/Vol] 11.3 10*3/uL High 4.4-11.0 [facility] Comment on above: Performed By: #### L 501.5200, L500.3400, L500.2500, L100.0100, L501.2450, L700.6800 #### [facility] [address] [place], [address] Comprehensive Metabolic Prof [facility] 10-05-2024 Albumin [Mass/Vol] 3.9 g/dL Normal 3.5-5.0 [facility] Comment on above: Performed By: #### L 501.5200, L500.3400, L500.2500, L100.0100, L501.2450, L700.6800 #### [facility] [address] [place], [address] Albumin/Globulin [Mass ratio] 1.4 {ratio} Normal 0.9-2.4 [facility] Comment on above: Performed By: #### L 501.5200, L500.3400, L500.2500, L100.0100, L501.2450, L700.6800 #### [facility] [address] [place], [address] ALK PHOS 113 U/L High 35-104 [facility] Comment on above: Performed By: #### L 501.5200, L500.3400, L500.2500, L100.0100, L501.2450, L700.6800 #### [facility] [address] [place], [address] ALT [Catalytic activity/Vol] 14 U/L Normal <=34 [facility] Comment on above: Performed By: #### L 501.5200, L500.3400, L500.2500, L100.0100, L501.2450, L700.6800 #### [facility] [address] [place], [address] AST [Catalytic activity/Vol] 23 U/L Normal <=31 [facility] Comment on above: Performed By: #### L 501.5200, L500.3400, L500.2500, L100.0100, L501.2450, L700.6800 #### [facility] [address] [place], [address] Bilirubin [Mass/Vol] 0.55 mg/dL Normal 0.00-1.30 [facility] Comment on above: Performed By: #### L 501.5200, L500.3400, L500.2500, L100.0100, L501.2450, L700.6800 #### [facility] [address] [place], [address] BUN/CRE 17.8 RATIO Normal 10-20 [facility] Comment on above: Performed By: #### L 501.5200, L500.3400, L500.2500, L100.0100, L501.2450, L700.6800 #### [facility] [address] [place], [address] Calcium [Mass/Vol] 8.9 mg/dL Normal 7.6-11.0 [facility] Comment on above: Performed By: #### L 501.5200, L500.3400, L500.2500, L100.0100, L501.2450, L700.6800 #### [facility] [address] [place], [address] Chloride [Moles/Vol] 106 mmol/L Normal 98-108 [facility] Comment on above: Performed By: #### L 501.5200, L500.3400, L500.2500, L100.0100, L501.2450, L700.6800 #### [facility] [address] [place], [address] CO2 [Moles/Vol] 22.5 mmol/L Normal 21.0-32.0 [facility] Comment on above: Performed By: #### L 501.5200, L500.3400, L500.2500, L100.0100, L501.2450, L700.6800 #### [facility] [address] [place], [address] Creatinine [Mass/Vol] 0.71 mg/dL Normal 0.70-1.20 [facility] Comment on above: Performed By: #### L 501.5200, L500.3400, L500.2500, L100.0100, L501.2450, L700.6800 #### [facility] [address] [place], [address] GAP 9 Normal 5-15 [facility] Comment on above: Performed By: #### L 501.5200, L500.3400, L500.2500, L100.0100, L501.2450, L700.6800 #### [facility] [address] [place], [address] GFR/1.73 sq M.predicted among non-blacks MDRD (S/P/Bld) [Vol rate/Area] 123 mL/min/{1.73_m2} Normal >60 [facility] Comment on above: Result Comment: mL/m in/1.73m2 CKD-EPI Creatinine Equation (2020) Performed By: #### L 501.5200, L500.3400, L500.2500, L100.0100, L501.2450, L700.6800 #### [facility] [address] [place], [address] Globulin (S) [Mass/Vol] 2.7 g/dL Normal 2.2-4.2 [facility] Comment on above: Performed By: #### L 501.5200, L500.3400, L500.2500, L100.0100, L501.2450, L700.6800 #### [facility] [address] [place], [address] Glucose [Mass/Vol] 100 mg/dL High 70-99 [facility] Comment on above: Performed By: #### L 501.5200, L500.3400, L500.2500, L100.0100, L501.2450, L700.6800 #### [facility] [address] [place], [address] Potassium [Moles/Vol] 4.0 mmol/L Normal 3.3-5.1 [facility] Comment on above: Performed By: #### L 501.5200, L500.3400, L500.2500, L100.0100, L501.2450, L700.6800 #### [facility] [address] [place], [address] Sodium [Moles/Vol] 138 mmol/L Normal 133-145 [facility] Comment on above: Performed By: #### L 501.5200, L500.3400, L500.2500, L100.0100, L501.2450, L700.6800 #### [facility] [address] [place], [place], [address] T PROT 6.6 g/dL Normal 5.9-8.4 [facility] Comment on above: Performed By: #### L 501.5200, L500.3400, L500.2500, L100.0100, L501.2450, L700.6800 #### [facility] [address] [place], [place], [address] Urea nitrogen [Mass/Vol] 13 mg/dL Normal 4-19 [facility] Comment on above: Performed By: #### L 501.5200, L500.3400, L500.2500, L100.0100, L501.2450, L700.6800 #### [facility] [address] [place], [place], [address] Inital Evaluation (1) - PTon 09-30-2024 Inital Evaluation (1) - PT [facility] [place] [address] / REHABILITATION SERVICES INITIAL EVALUATION MR#: [id number] Acct: [id number] Name: ALINA MALIK Rep #: [id number] : 2005 19 From: Conrado Williamson PT, ATC Referring DrCristian: Cristo Cox Status: RE G RCR Insurance: [employer] PL[employer] SELF PAY INSURANCE Patient's Visit Information Visit Information Visit Information: ALINA MALIK is a 19 year old F referred to Physical Therapy by JACQUELIN Bentley, AIR BOX TESTER-C with a diagnosis of LBP with B LE radiculopathy. Date of Evaluation: 09/30/24 Physical Therapist: Conrado Williamson, PT, ATC Visit Plan Frequency: 2-3x /Week Duration: 4-6 Weeks Plan: Assess benefit of REIL. Add postural education, core stab ex's, and HEP Subjective Subjective: Pt reports she has had LBP for 4 months. Pt reports her pain had an insidious onset in nature. Pt notes her pain gets worse with activity. Pt reports she is limited with sweeping her floors at home and washing dishes secondary to pain. Pt reports walking more than 2 blocks will also cause her severe pain. Pt notes she had a CT scan which revealed no significant findings. Pt had an EMG performed today which she has not received the results from yet. Pt reports she experiences tingling and numbness in her LE's. L LE radiculopathy is worse than the right side. Pt reports the radiculopathy is worse from the knees downwards toward the feet. Pt reports occasional sleep difficulty at this time secondary to pain. Pt denies any prior Hx of MVA's or trauma to her lumbar spine. LBP is currently 4/10 while sitting here in the clinic, but elevates to 8/10 at worst. Pain LBP: Pain Intensity (Out of 10): 4 Pain Intensity Range: 8 Objective Objective: Neuro: B LE sensation is WNL to light touch MMT: B LE's are rated at 5/5 throughout ROM: L/S ROM is WNL in all planes. No pain with movement. Repeated movements: RFIS 10x1 increases LBP and radiates pain down B LE's. KLEBER 10x1 peripheralized B LE sx's Balance/Special Test Scores Lower Extremity Functional Score: 37 Goals Goal 1:: Decrease LBP x 50% to aid with ambulation Goal Time Frame: 4-6 Weeks Goal 2:: Decrease B LE radiculopathy x 50% to aid with house chores Goal Time Frame: 4-6 Weeks Goal 3:: Pt will verbally and physically display proper posture to aid with future episodes on LBP Goal Time Frame: 4-6 Weeks Goal 4:: I with HEP Goal Time Frame: 4-6 Weeks Rehabilitation Potential Physical Therapy Diagnosis: Pt has LBP and B LE radiculopathy secondary to L/S disc derangement Rehabilitation Potential: Good Anticipated Interventions Patient/Client Instruction: Educate patient on: Condition and Plan of Care For the Purpose of:: To improve self management Therapeutic Exercise to Include: Strength training, Body mechanics, Postural training, Dynamic Lumbar Stabilization and Selene Exercises For the Purpose of:: To decrease pain, To improve muscle performance and motor function and To increase tolerance to activity/condition/posi tion Text: Thank you for the opportunity to evaluate your patient. For Medicare and Medicare HMO plans, please review the plan of care and approve it. It will need to be FAXED BACK to us at [phone] for Medicare purposes. For Medicare only, by signing this I certify the plan of care. Please let me know if there are questions or concerns regarding this plan of care. Physician Signature: Date: 09/30/24 1421 CC: [facility] [employer]C Nikki Olsen; Cristo [facility] [employer] Kenny [facility] Signed Normal [facility] NCS and/or EMG Patienton NCS and/or EMG Patient [facility] Pulmonary Services/Neurology [address] [place] [address] MR#: [id number] Acct: [id number] Name: ALINA MALIK Rep #: [id number] : 2005 19 From: Ricky Pillai MD Referring Dr: Cristo Cox [facility] GERMAN-C Status: REG RCR Location: PT Date: 09/30/24 Sex: F C NCS and/or EMG Patient Report Ordering Doctor: Hung Cox DATE OF SERVICE: 09/30/24 lAina presents with complaints of burning and tingling in the legs. Electrodiagnostic findings: Peroneal motor nerve demonstrates normal distal latency, amplitude and conduction velocity bilaterally. Tibial motor response within normal limits bilaterally. Normal tibial and peroneal F???waves. H???reflex normal bilaterally. Sensory responses are within normal limits. Needle EMG testing was performed in the lower limbs. All muscles tested showed no evidence of denervation with normal motor unit action potentials. Electrodiagnostic impression: This a normal electrodiagnostic study of the lower limbs. There is no electrodiagnostic evidence for peripheral neuropathy or lumbosacral radiculopathy. Multi Select Codes Neurology Neurology Interp Codes: 44189-88 Musc test done w/n test comp (interp) (2) and 51895-01 Nrv cndj test 11-12 studies (interp) 09/30/24 1246 Date Ricky Pillai MD CC: [facility] [employer] Nikki Olsen; Dr. Ricky Pillai MD; Cristo [facility] [employer] Beam Date Dictated: 09/30/24 1243 Date Transcribed: 09/30/241242 Cream Tester: TRAV Signed Normal [facility] Emergency Department Summary on 09-14-2024 Emergency Department Summary [facility] Medical Records Department [address] [place] [id number] Emergency Department Summary 09/14/24 MR#: [id number] Acct: [id number] Name: ALINA MALIK Rep #: [id number] : 2005 19 From: Remy Sawyer DO PCP: JACQUELIN Flores, [employer] TE[employer]-C Status:DEP ER Location: ED HPI History of Present Illness Chief Complaint: Back Informant: patient Narrative Narrative: Patient is a 19-year-old female with past medical history of anxiety and depression who states that over the past few months she has been having increased swelling and pain to her left leg. She denies any history of diagnosed lymphedema or congestive heart failure. She denies any recent trauma. She was seen in the ER roughly 10 days ago and had blood work and an ultrasound at that time which revealed no DVT and blood work revealed no signs of infection or electrolyte abnormality or kidney function changes. Patient states there is been no repeat trauma but she feels her pain has worsened and now is radiating from the left low back down to the ankle/toes. She denies any loss of bowel or bladder control or IV drug use but with the worsening symptoms comes in for evaluation [facility] Medical History EP (ectopic ) Palpitations Wears glasses Alcohol use Marijuana use Restless legs Migraine headache Non-smoker Asthma Shortness of breath on exertion Leg cramps History of pain when walking Bulimia nervosa, purging type Generalized anxiety disorder Borderline personality disorder Major depressive disorder, recurrent severe without psychotic features Visit for suture removal Home Medications ???Medication ???Instructions ???Recorded ???Last Taken ???Type metoprolol succinate 50 mg 25 mg PO DAILY 07/10/24 Unknown Hi story tablet,extended release 24 hr folic acid 1 mg tablet 2 mg PO QDAY 09/12/24 Unknown Hist ory methotrexate sodium (PF) 25 mg/mL 12.5 mg IM Q7D 09/12/24 Unknown H istory injection solution penicillin V potassium 500 mg 500 mg PO BID 10 days #20 tabs Unknown Rx tablet cyclobenzaprine 10 mg tablet 10 mg PO TID PRN muscle spasm 08/23 10/16 Unknown History meloxicam 15 mg tablet 15 mg PO DAILY 09/14/24 Unknown Hi story Allergy/AdvReac Type Severity Reaction Status Date / Time bupropion (From Wellbutrin) Allergy Rash Verified 09/14/24 01:24 Family History Grandmother Breast cancer Cancer skin Mother Hypertension Seizures Surgical History Hx of cholecystectomy Social History household members: none Smoking Status: Never smoker alcohol intake: current details: occasionally substance use type: marijuana caffeine: Yes additional social history: Boyfriend-Vishnu ESQUIVEL ROS ED Constitutional Constitutional ED: Denies chills or fever(s) Eyes Eyes: Denies change in vision ENT ENT ED: Denies sore throat Cardiovascular Cardiovascular: Denies chest pain Respiratory/Chest Respiratory/Chest: Denies cough or dyspnea Gastrointestinal Gastrointestinal: Denies abdominal pain, diarrhea, nausea or vomiting Genitourinary Genitourinary ED: Denies dysuria or hematuria Musculoskeletal Musculoskeletal: Reports back pain and other Details: Positive left leg pain and swelling Integumentary Denies Abrasions or rash Neurologic Neurologic: Reports paresthesias; Denies headache(s) Hematologic/Lymphatic Hematologic/Lymphatic: Denies easy bleeding or easy bruising EXAM Physical Exam Const Vital Signs: 09/14/24 01:24 09/14/24 03:40 Temperature 98.1 F Temperature Source Oral Pulse Rate 117 H Respiratory Rate 16 Blood Pressure 160/82 H 125/78 H Blood Pressure Mean 108 93 Pulse Ox 99 Positive well nourished, well developed and obese General Appearance ED: well developed; Negative for pallor Nutritional Appearance: obese HEENT HEENT Narrative: Normocephalic atraumatic Eyes PERRL and EOMs intact bilaterally General Eye ED: Negative for scleral icterus Neck supple and no JVD Resp normal respiratory effort and clear to auscultation bilaterally Cardio regular rate and regular rhythm Rate: other Other Details: Heart is regular rate and rhythm without murmurs rubs or gallops Radial and carotid pulses are equal and symmetric Back/Spine Back/Spine Narrative: No bony deformity or step-off of the thoracic or lumbar spine No overlying soft tissue changes to suggest trauma or infection Extremity Extremity Narrative: Left lower extremity is neurovascularly intact There is mild and asymmetric nonpitting edema of the left leg compared (more content not included)... Normal [facility] Spine Lumbar without Contras ton 09-14-2024 Spine Lumbar without Contrast [facility] Imaging Services [address] [place], [place] [id number] Spine Lumbar without Contrast MR#: [id number] Acct: [id number] Name: ALINA MALIK Rep #: [id number] : 2005 F 19 From: Shailesh Linder MD PCP: Nikki Olsen Maverick, [employer] BOX TESTER-C Status: REG ER Study: Spine Lumbar without Contrast Date of Exam: Exam# [id number] Ordering Dr: Remy Sawyer DO PROCEDURE: SPINE LUMBAR WITHOUT CONTRAST 09/14/2024 REASON FOR EXAM: LUMBAR RADICULOPATHY TECHNIQUE: Noncontrast lumbar spine CT with coronal and sagittal reformatted images COMPARISON: None available FINDINGS: 5 [id number] lumbar vertebral type bodies identified. No fracture or malalignment. The disc spaces appear within limits. Symmetric appearing SI joints appear within limits. Intrauterine device appears centrally located. Abdominal aorta and visualized retroperitoneum appears unremarkable on noncontrast imaging. Retroaortic left renal vein, incidental anatomic variant. Partially imaged kidneys appear within limits without stones or hydronephrosis identified. CT/Spine Lumbar without Contrast IMPRESSION: 5 [id number] lumbar vertebral type bodies identified. No fracture or malalignment. The disc spaces appear within limits. Symmetric appearing SI joints appear within limits. Reading Location: [id number] CC: [facility] JACKELIN Olsen; Remy Sawyer DO Cream Tester: Signed Normal [facility] Visit Reporton 0 09-12-2024 Urgent Care Visit Report [facility] [address], [address] [place] [address] OFFICE VISIT Date of Service: 09/12/24 MR#: [id number] Acct: [id number] Name: ALINA MALIK Rep #: [id number] : 2005 Provider: JACKELIN Talley Age/Sex: 19/F Location: [facility] Status: Signed Intake Vital Signs 07/10/24 10:43 09/12/24 13:21 Height 5 ft 4 in 5 ft 4 in Weight: 306 lb 8 oz BMI 52.6 BP 122/80 H Position Sitting Pulse 78 Temp 98.7 F Temp Source Oral Pulse Oximetry (%) 96 Oxygen Delivery Method room air Intake Visit Reasons: SWOLLEN TONSILS Accompanied by: Self Allergies bupropion (From Wellbutrin) Allergy (Verified 09/12/24 13:47) Rash Medications ???Medication ???Instructions ???Recorded ???Confirmed ???Type ergocalciferol (vitamin D2) 1,250 1,250 mcg PO QWEEK 07/10/2409/12 History mcg (50,000 unit) capsule meloxicam 7.5 mg tablet 7.5 mg PO DAILY PRN pain 07/10/24 09/12/24 History metoprolol succinate 50 mg 50 mg PO DAILY 07/10/24 09/12/24 H istory tablet,extended release 24 hr folic acid 1 mg tablet 2 mg PO QDAY 09/12/24 09/12/24 His tory methotrexate sodium (PF) 25 mg/mL mg IM 09/12/24 09/12/24 History injection solution penicillin V potassium 500 mg 500 mg PO BID 10 days #20 tabs 09/12/24 Rx tablet Nurse's Note: Patient has white spots on her left tonsil. Patient is concerned that its from a zit she popped in her nose on the left side. Patient denies a sore throat. PFSH Medical History EP (ectopic ) Palpitations Wears glasses Alcohol use Marijuana use Restless legs Migraine headache Non-smoker Asthma Shortness of breath on exertion Leg cramps History of pain when walking Bulimia nervosa, purging type Generalized anxiety disorder Borderline personality disorder Major depressive disorder, recurrent severe without psychotic features Visit for suture removal Surgical History Hx of cholecystectomy Family History Grandmother Breast cancer Cancer skin Mother Hypertension Seizures Social History household members: none Smoking Status: Never smoker alcohol intake: current details: occasionally substance use type: marijuana caffeine: Yes additional social history: Boyfriend-Vishnu Female Reproductive History Menstrual Ectopics: 1 HPI HPI Details: ALINA MALIK, is a 19 F who presents to the office today for throat issue -sx started yesterday- feels like sand paper in back of throat- denies sore throat- feels tonsil on left side is swollen -denies fever or chills, no uri sx, no sob -tried so far salt water -in office rapid strep negative ROS Const Constitutional: Positive for other (ROS negative x6 except what was placed in HPI) Exam Const General: cooperative, comfortable and no acute distress Orientation: alert, awake and oriented x3 HENMT Head: normal to inspection and normocephalic Nose: external nose normal Face and sinus: normal facial exam Mouth: oral mucosae normal, lip normal, tongue normal, oropharynx normal and moist mucous membranes Throat: uvula midline and abnormal tonsil on the left (+2 left side only) erythema and exudates Neck Neck: normal visual inspection, full ROM and lymphadenopathy (left cervical ) Resp Effort Inspection: normal respiratory effort, able to speak in complete sentences and symmetric chest movement Auscultation: Bilateral: Clear to Auscultation, Left: Clear to Auscultation and Right: Clear to Auscultation Cardio Rate: regular rate Rhythm: regular rhythm Heart Sounds: S1 normal and S2 normal GI Auscultation: normal bowel sounds Palpation: soft Skin General: no rashes or lesions noted and turgor normal Neuro General: patient alert, patient awake and patient oriented x3 Cognition: normal cognition Speech: speech normal Psych Appearance: grossly normal Mental Status: mental status grossly normal Attitude: cooperative Thought Process: normal Thought Content: normal Results POC [place] Rapid Strep POC [place] Rapid Strep Negative Last Edit by Sarina Rod MA on 09/12/24 13:43 Coding Level of Care Code Off vis,est,level 3 Diagnoses Acute bacterial tonsillitis J03.80; B96.89 Assessment and Plan Assessment and Plan (1) Acute bacterial tonsillitis: Status: Acute Plan: -on methotrexate- weekly injections- last injection last Saturday due today- advised no methotrexate during atb therapy and usually none for 7 days after- to check with her city attorney -warm salt water gargles, warm te (more content not included)... Normal [facility] CBC W/Diff, Automatedon 08-22 Absolute Lymph 2.84 X10 3/uL Normal 0.83-4.51 [facility] Comment on above: Performed By: #### L 501.5200, L500.3400, L500.2500, L100.0100, L501.2450, L700.6800 #### [facility] [address] [place], [place], [id number] Absolute Neut 6.0 X10 3/uL Normal 2.0-7.7 [facility] Comment on above: Performed By: #### L 501.5200, L500.3400, L500.2500, L100.0100, L501.2450, L700.6800 #### [facility] [address] [place], [address] Basophils/100 WBC (Bld) 0.7 % Normal 0-1 [facility] Comment on above: Performed By: #### L 501.5200, L500.3400, L500.2500, L100.0100, L501.2450, L700.6800 #### [facility] [address] [place], [address] Eosinophils/100 WBC (Bld) 4.4 % Normal 0-5 [facility] Comment on above: Performed By: #### L 501.5200, L500.3400, L500.2500, L100.0100, L501.2450, L700.6800 #### [facility] [address] [place], [address] Erythrocyte distribution width (RBC) [Ratio] 13.9 % Normal 11.6-14.6 [facility] Comment on above: Performed By: #### L 501.5200, L500.3400, L500.2500, L100.0100, L501.2450, L700.6800 #### [facility] [address] [place], [address] Hematocrit (Bld) [Volume fraction] 38.4 % Normal 37-47 [facility] Comment on above: Performed By: #### L 501.5200, L500.3400, L500.2500, L100.0100, L501.2450, L700.6800 #### [facility] [address] [place], [address] Hemoglobin (Bld) [Mass/Vol] 12.8 g/dL Normal 12.0-15.0 [facility] Comment on above: Performed By: #### L 501.5200, L500.3400, L500.2500, L100.0100, L501.2450, L700.6800 #### [facility] [address] [place], [address] IG% 0.400 Normal 0.0-0.9 [facility] Comment on above: Result Comment: IG% - Immature Granulocytes (promyelocytes, myelocytes and metamyelocytes) > 1% indicates that a LEFT SHIFT is Present. Performed By: #### L 501.5200, L500.3400, L500.2500, L100.0100, L501.2450, L700.6800 #### [facility] [address] [place], [address] Lymphocytes/100 WBC (Bld) 29.5 % Normal 19-41 [facility] Comment on above: Performed By: #### L 501.5200, L500.3400, L500.2500, L100.0100, L501.2450, L700.6800 #### [facility] [address] [place], [address] MCH (RBC) [Entitic mass] 27.6 pg Normal 27.0-32.0 [facility] Comment on above: Performed By: #### L 501.5200, L500.3400, L500.2500, L100.0100, L501.2450, L700.6800 #### [facility] [address] [place], [address] MCHC (RBC) [Mass/Vol] 33.3 g/dL Normal 32-36 [facility] Comment on above: Performed By: #### L 501.5200, L500.3400, L500.2500, L100.0100, L501.2450, L700.6800 #### [facility] [address] [place], [address] MCV (RBC) [Entitic vol] 82.9 fL Normal 81-99 [facility] Comment on above: Performed By: #### L 501.5200, L500.3400, L500.2500, L100.0100, L501.2450, L700.6800 #### [facility] [address] [place], [address] Monocytes/100 WBC (Bld) 3.3 % Normal 0-10 [facility] Comment on above: Performed By: #### L 501.5200, L500.3400, L500.2500, L100.0100, L501.2450, L700.6800 #### [facility] [address] [place], [address] Neutrophils/100 WBC (Bld) 61.7 % Normal 47-70 [facility] Comment on above: Performed By: #### L 501.5200, L500.3400, L500.2500, L100.0100, L501.2450, L700.6800 #### [facility] [address] [place], [address] Nucleated RBC (Bld) [#/Vol] 0 10*3/uL Normal 0-5 [facility] Comment on above: Performed By: #### L 501.5200, L500.3400, L500.2500, L100.0100, L501.2450, L700.6800 #### [facility] [address] [place], [address] Platelet mean volume (Bld) [Entitic vol] 8.6 fL Normal 6.2-12.0 [facility] Comment on above: Performed By: #### L 501.5200, L500.3400, L500.2500, L100.0100, L501.2450, L700.6800 #### [facility] [address] [place], [address] Platelets (Bld) [#/Vol] 382 10*3/uL Normal 150-450 [facility] Comment on above: Performed By: #### L 501.5200, L500.3400, L500.2500, L100.0100, L501.2450, L700.6800 #### [facility] [address] [place], [address] RBC (Bld) [#/Vol] 4.63 10*6/uL Normal 4.2-5.4 [facility] Comment on above: Performed By: #### L 501.5200, L500.3400, L500.2500, L100.0100, L501.2450, L700.6800 #### [facility] [address] [place], [address] RDW SD 41.4 fl Normal 35.1-43.9 [facility] Comment on above: Performed By: #### L 501.5200, L500.3400, L500.2500, L100.0100, L501.2450, L700.6800 #### [facility] [address] [place], [address] WBC (Bld) [#/Vol] 9.6 10*3/uL Normal 4.4-11.0 [facility] Comment on above: Performed By: #### L 501.5200, L500.3400, L500.2500, L100.0100, L501.2450, L700.6800 #### [facility] [address] [place], [address] Comprehensive Metabolic Prof mion 09-03-2024 Albumin [Mass/Vol] 4.3 g/dL Normal 3.5-5.0 [facility] Comment on above: Performed By: #### L 501.5200, L500.3400, L500.2500, L100.0100, L501.2450, L700.6800 #### [facility] [address] [place], [address] Albumin/Globulin [Mass ratio] 1.4 {ratio} Normal 0.9-2.4 [facility] Comment on above: Performed By: #### L 501.5200, L500.3400, L500.2500, L100.0100, L501.2450, L700.6800 #### [facility] [address] [place], [address] ALK PHOS 112 U/L High 35-104 [facility] Comment on above: Performed By: #### L 501.5200, L500.3400, L500.2500, L100.0100, L501.2450, L700.6800 #### [facility] [address] [place], [address] ALT [Catalytic activity/Vol] 16 U/L Normal <=34 [facility] Comment on above: Performed By: #### L 501.5200, L500.3400, L500.2500, L100.0100, L501.2450, L700.6800 #### [facility] [address] [place], [address] AST [Catalytic activity/Vol] 23 U/L Normal <=31 [facility] Comment on above: Performed By: #### L 501.5200, L500.3400, L500.2500, L100.0100, L501.2450, L700.6800 #### [facility] [address] [place], [address] Bilirubin [Mass/Vol] 0.49 mg/dL Normal 0.00-1.30 [facility] Comment on above: Performed By: #### L 501.5200, L500.3400, L500.2500, L100.0100, L501.2450, L700.6800 #### [facility] [address] [place], [address] BUN/CRE 17.9 RATIO Normal 10-20 [facility] Comment on above: Performed By: #### L 501.5200, L500.3400, L500.2500, L100.0100, L501.2450, L700.6800 #### [facility] [address] [place], [address] Calcium [Mass/Vol] 9.4 mg/dL Normal 7.6-11.0 [facility] Comment on above: Performed By: #### L 501.5200, L500.3400, L500.2500, L100.0100, L501.2450, L700.6800 #### [facility] [address] [place], [address] Chloride [Moles/Vol] 105 mmol/L Normal 98-108 [facility] Comment on above: Performed By: #### L 501.5200, L500.3400, L500.2500, L100.0100, L501.2450, L700.6800 #### [facility] [address] [place], [address] CO2 [Moles/Vol] 21.8 mmol/L Normal 21.0-32.0 [facility] Comment on above: Performed By: #### L 501.5200, L500.3400, L500.2500, L100.0100, L501.2450, L700.6800 #### [facility] [address] [place], [address] Creatinine [Mass/Vol] 0.70 mg/dL Normal 0.70-1.20 [facility] Comment on above: Performed By: #### L 501.5200, L500.3400, L500.2500, L100.0100, L501.2450, L700.6800 #### [facility] [address] [place], [address] GAP 12 Normal 5-15 [facility] Comment on above: Performed By: #### L 501.5200, L500.3400, L500.2500, L100.0100, L501.2450, L700.6800 #### [facility] [address] [place], [address] GFR/1.73 sq M.predicted among non-blacks MDRD (S/P/Bld) [Vol rate/Area] 126 mL/min/{1.73_m2} Normal >60 [facility] Comment on above: Result Comment: mL/m in/1.73m2 CKD-EPI Creatinine Equation (2020) Performed By: #### L 501.5200, L500.3400, L500.2500, L100.0100, L501.2450, L700.6800 #### [facility] [address] [place], [address] Globulin (S) [Mass/Vol] 3.0 g/dL Normal 2.2-4.2 [facility] Comment on above: Performed By: #### L 501.5200, L500.3400, L500.2500, L100.0100, L501.2450, L700.6800 #### [facility] [address] [place], [address] Glucose [Mass/Vol] 105 mg/dL High 70-99 [facility] Comment on above: Performed By: #### L 501.5200, L500.3400, L500.2500, L100.0100, L501.2450, L700.6800 #### [facility] [address] [place], [address] Potassium [Moles/Vol] 4.1 mmol/L Normal 3.3-5.1 [facility] Comment on above: Performed By: #### L 501.5200, L500.3400, L500.2500, L100.0100, L501.2450, L700.6800 #### [facility] [address] [place], [address] Sodium [Moles/Vol] 139 mmol/L Normal 133-145 [facility] Comment on above: Performed By: #### L 501.5200, L500.3400, L500.2500, L100.0100, L501.2450, L700.6800 #### [facility] [address] [place], [address] T PROT 7.3 g/dL Normal 5.9-8.4 [facility] Comment on above: Performed By: #### L 501.5200, L500.3400, L500.2500, L100.0100, L501.2450, L700.6800 #### [facility] [address] [place], [address] Urea nitrogen [Mass/Vol] 13 mg/dL Normal 4-19 [facility] Comment on above: Performed By: #### L 501.5200, L500.3400, L500.2500, L100.0100, L501.2450, L700.6800 #### [facility] [address] [place], [address] L506.1001on 09-03-2024 Vitamin D 25-OH 13.9 ng/mL Low 30-100 [facility] Comment on above: Result Comment: Janett min D Status Deficiency: <20 ng/mL (50nmol/L) Insufficiency: 20-30 ng/mL (50-75 nmol/L) Sufficiency: 30-100 ng/mL (75-250 nmol/L) Toxicity: >100 ng/mL (>250 nmol/L) Performed By: #### L 501.5200, L500.3400, L500.2500, L100.0100, L501.2450, L700.6800 #### [facility] [address] [place], [address] Thyroid Stim Hormone (TSH)on 09-03-2024 TSH 1.920 uIU/mL Normal 0.300-4.200 [facility] Comment on above: Performed By: #### L 501.5200, L500.3400, L500.2500, L100.0100, L501.2450, L700.6800 #### [facility] [address] [place], [address] Venous Duplex US, Unilateral on 09-03-2024 Venous Duplex US, Unilateral [facility] [address] [place] [address] Venous Duplex US, Unilateral 09/03/24 1241 MR#: [id number] Acct: [id number] Name: ALINA MALIK Rep #: [id number] : 2005 19 From: Josesito Nair MD Attending Dr: Cristo Cox [facility] Status: REG CLI Ordering Dr: Cristo Cox [facility] Date: 09/03/24 Location: CVS Sex: F C Admitted: Reason For Study Reason For Study: Left leg pain Procedure LEFT This is a venous duplex using B-mode, color flow and GSV is normal. spectral Doppler. CFV is compressible, spontaneous, phasic, competent, Exam performed in department. and demonstrates normal augmentation. A preliminary report was called and/or faxed to [facility] FV is compressible, spontaneous, phasic, competent AIR BOX TESTER-C. and demonstrates normal augmentation. POP V is compressible, spontaneous, phasic, competent and demonstrates normal augmentation. T/P Trunk is compressible. PTV is compressible. LT PerV is compressible. VL/Venous Duplex US, Unilateral Interpretation Summary Deep veins of the left lower extremity are patent and compressible segmentally. There is no evidence of left lower extremity deep vein thrombosis. Valvular competence appears intact within the proximal deep venous system on the left . The left great saphenous vein appears patent and compressible segmentally. Ordering Physician: Cristo Cox Referring Physician: Nikki Olsen Performed By: Willinger, Isidra, RVT 09/03/241643 Date Josesito Nair MD CC: [facility] Nikki Raúl; Cristo [facility] Beam Date Dictated: 09/03/24 1241 Date Transcribed: 09/03/241643 Cream Tester: Signed Normal [facility] ALEJANDRINA Comprehensive Panelon ANTI-DNA (DS)AB 1 IU/mL Normal 0-9 [facility] Comment on above: Result Comment: Nega tive <5 Equivocal 5 - 9 Positive >9 Performed By: #### L 501.5200, L500.3400, L500.2500, L100.0100, L501.2450, L700.6800 #### [facility] [address] [place], [address] ANTISCLERODERM <0.2 Normal 0.0-0.9 [facility] Comment on above: Performed By: #### L 501.5200, L500.3400, L500.2500, L100.0100, L501.2450, L700.6800 #### [facility] [address] [place], [address] BNP,B-Type NATRIURETIC PEPTI Checo 08-05-2024 Natriuretic peptide B (Bld) [Mass/Vol] 53.2 pg/mL Normal 0-100 [facility] Comment on above: Performed By: #### L 501.5200, L500.3400, L500.2500, L100.0100, L501.2450, L700.6800 #### [facility] [address] [place], [address] CRPon 08-05-2024 C-REACTIVE PROT 21.10 mg/L High 0.0-3.0 [facility] Comment on above: Result Comment: C-Re active Protein (CRP) provides useful information for the diagnosis, therapy and monitoring of inflammatory processes and associated diseases. For the evaluation of Relative Risk for Cardiovascular Disease, a High Sensitivity CRP (HSCRP) should be ordered. Performed By: #### L 501.5200, L500.3400, L500.2500, L100.0100, L501.2450, L700.6800 #### [facility] [address] [place], [address] Erythrocyte Sed Rateon 08-05 SED RATE 14 mm/hr Normal 0-30 [facility] Comment on above: Performed By: #### L 501.5200, L500.3400, L500.2500, L100.0100, L501.2450, L700.6800 #### [facility] [address] [place], [address] Hemoglobin A1con 08-05-2024 HbA1c (Bld) [Mass fraction] 5.2 % Normal 3.8-5.6 [facility] Comment on above: Result Comment: Norm al < 5.7 % Prediabetic 5.7 - 6.4 % Diabetic >or= 6.5 % Please note range changes. Performed By: #### L 501.5200, L500.3400, L500.2500, L100.0100, L501.2450, L700.6800 #### [facility] [address] [place], [address] Thyroid Stim Hormone (TSH)on 08-05-2024 TSH 1.870 uIU/mL Normal 0.358-3.740 [facility] Comment on above: Performed By: #### L 501.5200, L500.3400, L500.2500, L100.0100, L501.2450, L700.6800 #### [facility] [address] [place], [address] ANTINUCLEAR ANTIBODIES DIREC Ton 07-10-2024 ALEJANDRINA,DIRECT Negative Normal Negative [facility] Comment on above: Result Comment: Perf ormed at: CB - [facility] [address] [id number] Agricultural Sales Representative: Que Cruz PhD, Phone: [phone] Performed By: #### L 501.5200, L500.3400, L500.2500, L100.0100, L501.2450, L700.6800 #### [facility] [address] [place], [address] BNP,B-Type NATRIURETIC PEPTI Checo 07-10-2024 Natriuretic peptide B (Bld) [Mass/Vol] 7.9 pg/mL Normal 0-100 [facility] Comment on above: Performed By: #### L 501.5200, L500.3400, L500.2500, L100.0100, L501.2450, L700.6800 #### [facility] [address] [place], [address] Basic Metabolic Profile (BMP )on 07-10-2024 BUN/CRE 18.4 RATIO Normal 10-20 [facility] Comment on above: Order Comment: 'TROP ' Serial specimen #1, #2 or #3: 1 Performed By: #### L 501.5200, L500.3400, L500.2500, L100.0100, L501.2450, L700.6800 #### [facility] [address] [place], [address] CA,Total 9.2 mg/dL Normal 8.5-10.1 [facility] Comment on above: Order Comment: 'TROP ' Serial specimen #1, #2 or #3: 1 Performed By: #### L 501.5200, L500.3400, L500.2500, L100.0100, L501.2450, L700.6800 #### [facility] [address] [place], [address] Chloride [Moles/Vol] 109 mmol/L High 98-107 [facility] Comment on above: Order Comment: 'TROP ' Serial specimen #1, #2 or #3: 1 Performed By: #### L 501.5200, L500.3400, L500.2500, L100.0100, L501.2450, L700.6800 #### [facility] [address] [place], [address] CO2 [Moles/Vol] 26.0 mmol/L Normal 21.0-32.0 [facility] Comment on above: Order Comment: 'TROP ' Serial specimen #1, #2 or #3: 1 Performed By: #### L 501.5200, L500.3400, L500.2500, L100.0100, L501.2450, L700.6800 #### [facility] [address] [place], [address] Creatinine [Mass/Vol] 0.71 mg/dL Normal 0.55-1.02 [facility] Comment on above: Order Comment: 'TROP ' Serial specimen #1, #2 or #3: 1 Result Comment: The validity of the calculated GFR GFRAA in patients over 70 years has not been determined. Clinical correlation is essential. Performed By: #### L 501.5200, L500.3400, L500.2500, L100.0100, L501.2450, L700.6800 #### [facility] [address] [place], [address] ECRCL 173.85 ml/min Normal [facility] Comment on above: Order Comment: 'TROP ' Serial specimen #1, #2 or #3: 1 Performed By: #### L 501.5200, L500.3400, L500.2500, L100.0100, L501.2450, L700.6800 #### [facility] [address] [place], [address] EST GFR - AA 134 mL/min Normal >60 [facility] Comment on above: Order Comment: 'TROP ' Serial specimen #1, #2 or #3: 1 Result Comment: Afri can Macedonian GFR Calc Performed By: #### L 501.5200, L500.3400, L500.2500, L100.0100, L501.2450, L700.6800 #### [facility] [address] [place], [address] GAP 5 Normal 5-15 [facility] Comment on above: Order Comment: 'TROP ' Serial specimen #1, #2 or #3: 1 Performed By: #### L 501.5200, L500.3400, L500.2500, L100.0100, L501.2450, L700.6800 #### [facility] [address] [place], [address] GFR/1.73 sq M.predicted among non-blacks MDRD (S/P/Bld) [Vol rate/Area] 111 mL/min/{1.73_m2} Normal >60 [facility] Comment on above: Order Comment: 'TROP ' Serial specimen #1, #2 or #3: 1 Result Comment: Non- GFR Calc Performed By: #### L 501.5200, L500.3400, L500.2500, L100.0100, L501.2450, L700.6800 #### [facility] [address] [place], [address] Glucose [Mass/Vol] 114 mg/dL High 74-106 [facility] Comment on above: Order Comment: 'TROP ' Serial specimen #1, #2 or #3: 1 Result Comment: Fast ing Glucose result from 100 to 125 mg/dL suggests IMPAIRED HOMEOSTASIS per A.D.A. criteria. Performed By: #### L 501.5200, L500.3400, L500.2500, L100.0100, L501.2450, L700.6800 #### [facility] [address] [place], [address] Potassium [Moles/Vol] 3.9 mmol/L Normal 3.5-5.1 [facility] Comment on above: Order Comment: 'TROP ' Serial specimen #1, #2 or #3: 1 Performed By: #### L 501.5200, L500.3400, L500.2500, L100.0100, L501.2450, L700.6800 #### [facility] [address] [place], [address] Sodium [Moles/Vol] 140 mmol/L Normal 136-145 [facility] Comment on above: Order Comment: 'TROP ' Serial specimen #1, #2 or #3: 1 Performed By: #### L 501.5200, L500.3400, L500.2500, L100.0100, L501.2450, L700.6800 #### [facility] [address] [place], [place], [id number] Urea nitrogen [Mass/Vol] 13 mg/dL Normal 7-18 [facility] Comment on above: Order Comment: 'TROP ' Serial specimen #1, #2 or #3: 1 Performed By: #### L 501.5200, L500.3400, L500.2500, L100.0100, L501.2450, L700.6800 #### [facility] [address] [place], [address] CBC W/Diff, Automatedon 06-24 Absolute Lymph 2.79 X10 3/uL Normal 0.83-4.51 [facility] Comment on above: Performed By: #### L 501.5200, L500.3400, L500.2500, L100.0100, L501.2450, L700.6800 #### [facility] [address] [place], [address] Absolute Neut 7.0 X10 3/uL Normal 2.0-7.7 [facility] Comment on above: Performed By: #### L 501.5200, L500.3400, L500.2500, L100.0100, L501.2450, L700.6800 #### [facility] [address] [place], [address] Basophils/100 WBC (Bld) 0.5 % Normal 0-1 [facility] Comment on above: Performed By: #### L 501.5200, L500.3400, L500.2500, L100.0100, L501.2450, L700.6800 #### [facility] [address] [place], [address] Eosinophils/100 WBC (Bld) 2.7 % Normal 0-5 [facility] Comment on above: Performed By: #### L 501.5200, L500.3400, L500.2500, L100.0100, L501.2450, L700.6800 #### [facility] [address] [place], [address] Erythrocyte distribution width (RBC) [Ratio] 14.1 % Normal 11.6-14.6 [facility] Comment on above: Performed By: #### L 501.5200, L500.3400, L500.2500, L100.0100, L501.2450, L700.6800 #### [facility] [address] [place], [address] Hematocrit (Bld) [Volume fraction] 37.8 % Normal 37-47 [facility] Comment on above: Performed By: #### L 501.5200, L500.3400, L500.2500, L100.0100, L501.2450, L700.6800 #### [facility] [address] [place], [address] Hemoglobin (Bld) [Mass/Vol] 12.7 g/dL Normal 12.0-15.0 [facility] Comment on above: Performed By: #### L 501.5200, L500.3400, L500.2500, L100.0100, L501.2450, L700.6800 #### [facility] [address] [place], [address] IG% 0.800 Normal 0.0-0.9 [facility] Comment on above: Result Comment: IG% - Immature Granulocytes (promyelocytes, myelocytes and metamyelocytes) > 1% indicates that a LEFT SHIFT is Present. Performed By: #### L 501.5200, L500.3400, L500.2500, L100.0100, L501.2450, L700.6800 #### [facility] [address] [place], [address] Lymphocytes/100 WBC (Bld) 26.3 % Normal 19-41 [facility] Comment on above: Performed By: #### L 501.5200, L500.3400, L500.2500, L100.0100, L501.2450, L700.6800 #### [facility] [address] [place], [address] MCH (RBC) [Entitic mass] 28.0 pg Normal 27.0-32.0 [facility] Comment on above: Performed By: #### L 501.5200, L500.3400, L500.2500, L100.0100, L501.2450, L700.6800 #### [facility] [address] [place], [address] MCHC (RBC) [Mass/Vol] 33.6 g/dL Normal 32-36 [facility] Comment on above: Performed By: #### L 501.5200, L500.3400, L500.2500, L100.0100, L501.2450, L700.6800 #### [facility] [address] [place], [address] MCV (RBC) [Entitic vol] 83.3 fL Normal 81-99 [facility] Comment on above: Performed By: #### L 501.5200, L500.3400, L500.2500, L100.0100, L501.2450, L700.6800 #### [facility] [address] [place], [address] Monocytes/100 WBC (Bld) 3.1 % Normal 0-10 [facility] Comment on above: Performed By: #### L 501.5200, L500.3400, L500.2500, L100.0100, L501.2450, L700.6800 #### [facility] [address] [place], [address] Neutrophils/100 WBC (Bld) 66.6 % Normal 47-70 [facility] Comment on above: Performed By: #### L 501.5200, L500.3400, L500.2500, L100.0100, L501.2450, L700.6800 #### [facility] [address] [place], [address] Nucleated RBC (Bld) [#/Vol] 0 10*3/uL Normal 0-5 [facility] Comment on above: Performed By: #### L 501.5200, L500.3400, L500.2500, L100.0100, L501.2450, L700.6800 #### [facility] [address] [place], [address] Platelet mean volume (Bld) [Entitic vol] 8.5 fL Normal 6.2-12.0 [facility] Comment on above: Performed By: #### L 501.5200, L500.3400, L500.2500, L100.0100, L501.2450, L700.6800 #### [facility] [address] [place], [address] Platelets (Bld) [#/Vol] 349 10*3/uL Normal 150-450 [facility] Comment on above: Performed By: #### L 501.5200, L500.3400, L500.2500, L100.0100, L501.2450, L700.6800 #### [facility] [address] [place], [address] RBC (Bld) [#/Vol] 4.54 10*6/uL Normal 4.2-5.4 [facility] Comment on above: Performed By: #### L 501.5200, L500.3400, L500.2500, L100.0100, L501.2450, L700.6800 #### [facility] [address] [place], [address] RDW SD 42.8 fl Normal 35.1-43.9 [facility] Comment on above: Performed By: #### L 501.5200, L500.3400, L500.2500, L100.0100, L501.2450, L700.6800 #### [facility] [address] [place], [address] WBC (Bld) [#/Vol] 10.6 10*3/uL Normal 4.4-11.0 [facility] Comment on above: Performed By: #### L 501.5200, L500.3400, L500.2500, L100.0100, L501.2450, L700.6800 #### [facility] [address] [place], [address] CCP IgG Antibodieson 025 CCP IgG Ab. 0 units Normal 0-19 [facility] Comment on above: Result Comment: Nega tive <20 Weak positive 20 - 39 Moderate positive 40 - 59 Strong positive >59 Performed at: [facility] [id number] Agricultural Sales Representative: Que Cruz PhD, Phone: [phone] Performed By: #### L 501.5200, L500.3400, L500.2500, L100.0100, L501.2450, L700.6800 #### [facility] [place], [address] GRACIELAOVon 07-10-2024 CNOV Office Visit (UCWSTR ) ALINA MALIK ([id number]) 1 F Date Time Provider Department 07/10/24 10:00 AM JOE CHRISTIANSEN [facility] During your visit today, we recorded the following information about you: Temperature Pulse Respiration Blood pressure 98.8 degrees 116/minute 20/minute 139/93 Weight 137.3 kg Joe Christiansen MD 07/10/2024 10:41 AM Signed Patient presents with: Nausea: Bilateral leg swelling x4 days HPI: Patient presents for 4 days of increasing leg swelling; left greater than right. She has chronic leg edema but this is significantly worse. She is noticing some shortness of breath and heart racing. Today she has had nausea and vomited once. She did take metoprolol after vomiting. Denies diarrhea, constipation, blood in stool, fever, polyuria, polydipsia, sore throat, nasal congestion, rhinorrhea. She has been gaining weight. Last illness was a few weeks ago. Had initial consult with rheumatology 3d ago and says labs were OK. Primary care at [facility]. PAST MEDICAL HISTORY Diagnosis Date Anxiety state Depression MEDICATIONS: ergocalciferol 50,000 unit capsule (VITAMIN D2, DRISDOL) Take 50,000 Units by mouth one time a week. oxyCODONE-acetaminophen (PERCOCET) 5-325 mg tablet Take 1 tablet by mouth every 8 hours as needed. metoprolol succinate ER (TOPROL XL) 50 mg 24 hr tablet Take 0.5 tablets by mouth every afternoon. FLUoxetine (PROZAC) 20 mg capsule Take 40 mg by mouth once daily. meloxicam (MOBIC) 15 mg tablet Take 1 tablet by mouth once daily. ALLERGIES: ALLERGIES Allergen Reactions Wellbutrin [Bupropi* Rash VITALS: BP 139/93 Pulse 116 Temp 37.1 ?C (98.8 ?F) Resp 20 Wt (!) 137.3 kg (302 lb 11.1 oz) LMP 12/06/2022 (Approximate) SpO2 100% BMI 51.96 kg/m? Last 8 Encounter Wt Readings: Date: Wt: 07/10/2024 137.3 kg (302 lb 11.1 oz) 02/17/2024 130.3 kg (287 lb 4.2 oz) 09/02/2023 126.8 kg (279 lb 8.7 oz) 08/30/2023 127 kg (280 lb) 08/29/2023 127 kg (280 lb) 08/26/2023 127 kg (280 lb) 12/14/2022 122.3 kg (269 lb 9.6 oz) (>99%, Z= 2.67)* 06/14/2022 113.4 kg (250 lb) (>99%, Z= 2.50)* Last 8 Encounter Pulse Readings: Date: Pulse: 07/10/2024 116 02/17/2024 104 09/02/2023 100 08/30/2023 96 08/29/2023 85 08/26/2023 86 12/14/2022 79 05/14/2022 91 PHYSICAL EXAM: GEN: pleasant, no acute distress, alert, ambulates comfortably. HEENT: PERRL, EOMI, MMM NECK: supple, no lymphadenopathy, no thyromegaly HEART: borderline fast rate, regular rhythm, no murmurs LUNGS: clear to auscultation, no wheezes or crackles, no increased WOB ABD: soft, non-distended, no masses palpated, diffusely tender EXT: no clubbing, no cyanosis, bilateral lymphedema ASSESSMENT/PLAN: 1. Bilateral leg edema - ICD9: 782.3, ICD10: R60.0 (primary diagnosis) 2. Tachycardia - ICD9: 785.0, ICD10: R00.0 3. SOB (shortness of breath) - ICD9: 786.05, ICD10: R06.02 4. Nausea - ICD9: 787.02, ICD10: R11.0 Patient is concerned about blood clot in her legs. She has tachycardia, mild dyspnea, and weight gain. I recommended ER evaluation. It is unclear if nausea and vomiting are related. She declines EMS transfer and will to to [facility] ED. Joe Christiansen MD Allergies As of Date: 07/10/2024 Noted Allergy Reaction WELLBUTRIN (BUPROPION) 06/14/2022 2 - Rash Date Reviewed: 07/10/2024 Reviewed by: Sandra Lemos MA - Fully Assessed Reason for Visit: Nausea [70] Cmt: Bilateral leg swelling x4 days Primary Visit Diagnosis:Bilateral leg edema [R60.0] Other Visit Diagnoses:Tachycardia [R00.0] SOB (shortness of breath) [R06.02] Nausea [R11.0] Prescriptions as of 07/10/2024 - ergocalciferol 50,000 unit capsule (VITAMIN D2, DRISDOL) Take 50,000 Units by mouth one time a week. - oxyCODONE-acetaminophen (PERCOCET) 5-325 mg tablet Take 1 tablet by mouth every 8 hours as needed. - metoprolol succinate ER (TOPROL XL) 50 mg 24 hr tablet Take 0.5 tablets by mouth every afternoon. - FLUoxetine (PROZAC) 20 mg capsule Take 40 mg by mouth once daily. - meloxicam (MOBIC) 15 mg tablet Take 1 tablet by mouth once daily. Problem List As Of Date: 07/10/2024 (None) Medications Discontinued During This Encounter Prescriptions - ARIPiprazole (ABILIFY) 5 mg tablet (Discontinued) Take 5 mg by mouth once daily. 4 mg once daily - cyclobenzaprine (FLEXERIL) 10 mg tablet (Discontinued) Reported on 02/17/2024 - keTORolac (TORADOL) 10 mg tablet (Discontinued) Reported on 07/10/2024 - propranolol HCl (PROPRANOLOL ORAL) (Discontinued) Reported on 08/26/2023 - topiramate (TOPAMAX) 25 mg tablet (Discontinued) Reported on 07/10/2024 - traZODone (DESYREL) 100 mg tablet (Discontinued) Reported on 08/26/2023 Level of Service: OFFICE/OUTPATIENT ESTABLISHED LOW [facility] 20 MIN [59464] Encounter Status:Closed by JOE CHRISTIANSEN on (more content not included)... Normal [facility] CTA Chest W/WO Contraston CTA Chest W/WO Contrast [facility] Imaging Services [address] [place] [address] CTA Chest W/WO Contrast MR#: [id number] Acct: [id number] Name: ALINA MALIK Rep #: [id number] : 2005 F 19 From: Demetris tian MD PCP: Nikki Olsen [facility], [facility] Status: REG ER Study: CTA Chest W/WO Contrast Date of Exam: 07/10/24 Exam# [id number] Ordering Dr: Karen Mayes [id number] STUDY: CTA CHEST REASON FOR EXAM: Female, 19 years old. dyspnea RADIATION DOSAGE (If Supplied By Facility): CTDIvol = ( 11.47 ) mGy, DLP = ( 498.69 ) mGycm TECHNIQUE: The examination was performed with the intravenous administration of IV 100mL Isovue-370. Post-processing of the angiographic images was performed, with multiplanar reformation and 3D reconstruction. Individualized dose optimization techniques were used for this CT. COMPARISON: Comparison is made with prior study dated December 30, 2023. FINDINGS: Normal enhancement of the main pulmonary artery and right and left pulmonary arteries. Normal enhancement of the bilateral peripheral pulmonary arteries. There is no demonstrated pulmonary embolism. Normal thoracic aorta and visualized great vessels. There is no demonstrated aortic dissection. Normal heart and pericardium. Normal mediastinum. Normal hilar regions. Normal visualized trachea and bronchi. The lungs are well expanded. Normal pulmonary parenchyma. Normal pleura. Normal chest wall structures. Normal osseous structures. Normal visualized upper abdomen. CT/CTA Chest W/WO Contrast IMPRESSION: Normal CTA chest examination, without a demonstrated pulmonary embolism or arterial dissection. Electronically Signed: Demetris Riojas MD at 14:00 EST , CC: [facility] Nikki Olsen; MONICA Jacinto Cream Tester: Signed Normal [facility] Chest PA and Lateralon 07-10 Chest PA and Lateral [facility] Imaging Services [address] [place], [place] [address] Chest PA and Lateral MR#: [id number] Acct: [id number] Name: ALINA MALIK Rep #: [id number] : 2005 F 19 From: Demetris tian MD PCP: Nikki Olsen [facility], [facility]C Status: REG ER Study: Chest PA and Lateral Date of Exam: 07/10/24 Exam# [id number] Ordering Dr: Karen Mayes [id number] STUDY: X-RAY CHEST REASON FOR EXAM: Female, 19 years old. Dyspnea TECHNIQUE: PA and lateral views of the chest. COMPARISON: None. FINDINGS: The lungs are clear and expanded. There is no demonstrated pleural abnormality. Normal size heart. Normal mediastinum and kimmie. Normal visualized pulmonary arteries. Normal visualized aortic arch and descending thoracic aorta. Normal visualized thoracic spine. Normal visualized ribs, clavicles, and shoulders. There is no demonstrated abnormality of the visualized soft tissue structures of the upper abdomen. RAD/Chest PA and Lateral IMPRESSION: Normal x-ray examination of the chest. Electronically Signed: Demetris Riojas MD at 12:23 EST Reading Location ID and State: [facility] / [place] , Service support , CC: [facility] Nikki Olsen; MONICA Jacinto Cream Tester: Signed Normal [facility] D-Dimer Quantitative (DVT/PE )on 07-10-2024 D-DIMER QUANT 0.59 FEU/ug/m Invalid Interpretation Code 0.27-0.49 [facility] Comment on above: Result Comment: D-Di emani ELEVATED (>0.49): Additional studies and clinical assessments are indicated to conclude diagnosis of: Deep Vein Thrombosis (DVT) or Pulmonary Embolism (PE) CRITICAL VALUE CALLED TO Jose LOZANO (2) 07/10/24 1203 Liana Lawton. RESULTS READ BACK BY . Performed By: #### L 501.5200, L500.3400, L500.2500, L100.0100, L501.2450, L700.6800 #### [facility] [address] [place], [address] Emergency Department Summary on 07-10-2024 Emergency Department Summary [facility] Medical Records Department [address] [place] [address] Emergency Department Summary 07/10/24 MR#: [id number] Acct: [id number] Name: ALINA MALIK Rep #: [id number] : 2005 19 From: Arvin Segundo DO PCP: Nikki Olsen [facility], [employer] [facility]C Status:DEP ER Location: ED HPI History of Present Illness Chief Complaint: Edema Narrative Narrative: 19-year-old female with past medical history of fibromyalgia was sent in by urgent care for lower extremity edema. She states both legs have been more swollen than usual over the last 4 days. She also has felt mildly short of breath. No chest pain. No fever or upper respiratory symptoms. She reports nausea but denies vomiting, abdominal pain, or diarrhea. She sees a city attorney for unspecified problems and does not have a primary care doctor. [facility] Medical History EP (ectopic ) Palpitations Wears glasses Alcohol use Marijuana use Restless legs Migraine headache Non-smoker Asthma Shortness of breath on exertion Leg cramps History of pain when walking Bulimia nervosa, purging type Generalized anxiety disorder Borderline personality disorder Major depressive disorder, recurrent severe without psychotic features Visit for suture removal Home Medications ???Medication ???Instructions ???Recorded ???Last Taken ???Type fluoxetine 20 mg capsule 40 mg PO DAILY 12/30/23 Unknown History ondansetron 4 mg disintegrating 4 mg PO TID PRN nausea and 03/08/24 Unknown Rx tablet vomiting #21 tabs oxycodone-acetaminophen 5 mg-325 1 tab PO Q6H PRN pain 3 days #12 03/08/24 Unknown Rx mg tablet (Percocet) tabs ergocalciferol (vitamin D2) 1,250 1,250 mcg PO QWEEK 07/10/24 Unknown History mcg (50,000 unit) capsule meloxicam 7.5 mg tablet 7.5 mg PO DAILY PRN pain 07/10/24 Unknown History metoprolol succinate 50 mg 50 mg PO DAILY 07/10/24 Unknown History tablet,extended release 24 hr Allergy/AdvReac Type Severity Reaction Status Date / Time bupropion (From Wellbutrin) Allergy Rash Verified 07/10/24 10:43 Family History Grandmother Breast cancer Cancer skin Mother Hypertension Seizures Surgical History Hx of cholecystectomy Social History household members: none Smoking Status: Never smoker alcohol intake: current details: occasionally substance use type: marijuana caffeine: Yes additional social history: Boyfriend-Vishnu ESQUIVEL ROS ED ROS Narrative Constitutional: Negative for fever, chills, malaise. CVS: Negative for palpitations, chest pain, syncope. Respiratory: Positive for shortness of breath. Negative cough, orthopnea. GI: Negative for abdominal pain,vomiting. EXAM Physical Exam Narrative Exam Narrative: CONST: Patient sitting in no acute distress. EYES: Normal inspection. NECK: Normal inspection. RESP: No respiratory distress, CTAB. CVS: Regular rate and rhythm, no murmur, no gallop. ABD: Soft and nontender, no guarding or rebound, nondistended. SKIN: Color normal, no rash, warm, dry, intact. EXTREMITIES: Normal appearance, legs are symmetric without peripheral edema. No warmth or calf tenderness, no palpable cords. Soft compartments. 5/5 strength in dorsiflexion and plantarflexion, normal sensation, 2+ DP pulses. NEURO: Alert and answering questions appropriately. PSYCH: Normal affect. Const Vital Signs: 07/10/24 10:43 07/10/24 11:03 07/10/24 13:17 Temperature 98.2 F Temperature Source Temporal Pulse Rate 111 H 104 H Respiratory Rate 20 H 20 H Respiratory Pattern Normal Blood Pressure 166/101 H 152/79 H Blood Pressure Mean 122 103 Pulse Ox 100 99 Oxygen Delivery Method Room Air Room Air 07/10/24 14:13 Temperature 97 F L Temperature Source Pulse Rate 98 Respiratory Rate 16 Respiratory Pattern Blood Pressure 143/88 H Blood Pressure Mean 106 Pulse Ox 98 Oxygen Delivery Method Physical Exam Const Vital Signs: 07/10/24 10:43 07/10/24 11:03 07/10/24 13:17 Temperature 98.2 F Temperature Source Temporal Pulse Rate 111 H 104 H Respiratory Rate 20 H 20 H Respiratory Pattern Normal Blood Pressure 166/101 H 152/79 H Blood Pressure Mean 122 103 Pulse Ox 100 99 Oxygen Delivery Method Room Air Room Air 07/10/24 14:13 Temperature 97 F L Temperature Source Pulse Rate 98 Respiratory Rate 16 Respiratory Pattern Blood Pressure 143/88 H Blood Pressure Mean 106 Pulse Ox 98 Oxygen Delivery Method MDM MDM MDM Narrative (more content not included)... Normal [facility] L501.4020on 07-10-2024 TROPONIN-I HS < 3 Low 3.0-54.0 [facility] Comment on above: Order Comment: 'TROP ' Serial specimen #1, #2 or #3: 1 Result Comment: Plea se Note: New Test Units and Gender Specific Reference Ranges. For more information see Policy Stat Procedure [place] High Sensitivity Troponin (TNIH) and attachments. Performed By: #### L 501.5200, L500.3400, L500.2500, L100.0100, L501.2450, L700.6800 #### [facility] [address] [place], [address] ,Serum,hCG Quali.on 07-10-2024 HCG, SERUM QUAL Negative Normal [facility] Comment on above: Performed By: #### L 501.5200, L500.3400, L500.2500, L100.0100, L501.2450, L700.6800 #### [facility] [address] [place], [address] Quantiferon TB-Gold+on 07-10 QFT MITOGEN DOMI > 10.00 Normal . [facility] Comment on above: Performed By: #### L 501.5200, L500.3400, L500.2500, L100.0100, L501.2450, L700.6800 #### [facility] [address] [place], [address] QFT NIL VALUE 0.01 IU/mL Normal . [facility] Comment on above: Performed By: #### L 501.5200, L500.3400, L500.2500, L100.0100, L501.2450, L700.6800 #### [facility] [address] [place], [address] QFT TB GOLD+ Comment Normal . [facility] Comment on above: Result Comment: [place] tiFERON-TB Gold Plus is a qualitative indirect test for M tuberculosis infection (including disease) and is intended for use in conjunction with risk assessment, radiography, and other medical and diagnostic evaluations. The QuantiFERON-TB Gold Plus result is determined by subtracting the Nil value from either TB antigen (Ag) value. The Mitogen tube serves as a control for the test. Performed By: #### L 501.5200, L500.3400, L500.2500, L100.0100, L501.2450, L700.6800 #### [facility] [address] [place], [address] QFT TB POS CRIT Negative Normal Negative [facility] Comment on above: Result Comment: No r esponse to M tuberculosis antigens detected. Infection with M tuberculosis is unlikely, but high risk individuals should be considered for additional testing (ATS/IDSA/CDC Clinical Practice Guidelines, 2017). The reference range is an Antigen minus Nil result of <0.35 IU/mL. The specimen received for QuantiFERON testing was incubated by the ordering institution. Specific procedures outlined in our Directory of Services and in the package insert for the QuantiFERON Gold (In Tube) test must be followed to enable for proper stimulation of cells for the production of interferon gamma. Chemiluminescence immunoassay methodology Performed By: #### L 501.5200, L500.3400, L500.2500, L100.0100, L501.2450, L700.6800 #### [facility] [address] [place], [address] QFT TB1+ AG DOMI 0.01 IU/mL Normal . [facility] Comment on above: Performed By: #### L 501.5200, L500.3400, L500.2500, L100.0100, L501.2450, L700.6800 #### [facility] [address] [place], [address] QFT TB2+ AG DOMI 0.01 IU/mL Normal . [facility] Comment on above: Performed By: #### L 501.5200, L500.3400, L500.2500, L100.0100, L501.2450, L700.6800 #### [facility] [address] [place], [address] CBC W/Diff, Automatedon 01-1 Absolute Lymph 3.18 X10 3/uL Normal 0.83-4.51 [facility] Comment on above: Performed By: #### L 501.5200, L500.3400, L500.2500, L100.0100, L501.2450, L700.6800 #### [facility] [address] [place], [address] Absolute Neut 5.5 X10 3/uL Normal 2.0-7.7 [facility] Comment on above: Performed By: #### L 501.5200, L500.3400, L500.2500, L100.0100, L501.2450, L700.6800 #### [facility] [address] [place], [address] Basophils/100 WBC (Bld) 0.7 % Normal 0-1 [facility] Comment on above: Performed By: #### L 501.5200, L500.3400, L500.2500, L100.0100, L501.2450, L700.6800 #### [facility] [address] [place], [address] Eosinophils/100 WBC (Bld) 3.5 % Normal 0-5 [facility] Comment on above: Performed By: #### L 501.5200, L500.3400, L500.2500, L100.0100, L501.2450, L700.6800 #### [facility] [address] [place], [address] Erythrocyte distribution width (RBC) [Ratio] 14.2 % Normal 11.6-14.6 [facility] Comment on above: Performed By: #### L 501.5200, L500.3400, L500.2500, L100.0100, L501.2450, L700.6800 #### [facility] [address] [place], [address] Hematocrit (Bld) [Volume fraction] 35.2 % Low 37-47 [facility] Comment on above: Performed By: #### L 501.5200, L500.3400, L500.2500, L100.0100, L501.2450, L700.6800 #### [facility] [address] [place], [address] Hemoglobin (Bld) [Mass/Vol] 11.7 g/dL Low 12.0-15.0 [facility] Comment on above: Performed By: #### L 501.5200, L500.3400, L500.2500, L100.0100, L501.2450, L700.6800 #### [facility] [address] [place], [address] IG% 0.300 Normal 0.0-0.9 [facility] Comment on above: Result Comment: IG% - Immature Granulocytes (promyelocytes, myelocytes and metamyelocytes) > 1% indicates that a LEFT SHIFT is Present. Performed By: #### L 501.5200, L500.3400, L500.2500, L100.0100, L501.2450, L700.6800 #### [facility] [address] [place], [address] Lymphocytes/100 WBC (Bld) 33.8 % Normal 19-41 [facility] Comment on above: Performed By: #### L 501.5200, L500.3400, L500.2500, L100.0100, L501.2450, L700.6800 #### [facility] [address] [place], [address] MCH (RBC) [Entitic mass] 27.6 pg Normal 27.0-32.0 [facility] Comment on above: Performed By: #### L 501.5200, L500.3400, L500.2500, L100.0100, L501.2450, L700.6800 #### [facility] [address] [place], [address] MCHC (RBC) [Mass/Vol] 33.2 g/dL Normal 32-36 [facility] Comment on above: Performed By: #### L 501.5200, L500.3400, L500.2500, L100.0100, L501.2450, L700.6800 #### [facility] [address] [place], [address] MCV (RBC) [Entitic vol] 83.0 fL Normal 81-99 [facility] Comment on above: Performed By: #### L 501.5200, L500.3400, L500.2500, L100.0100, L501.2450, L700.6800 #### [facility] [address] [place], [address] Monocytes/100 WBC (Bld) 3.3 % Normal 0-10 [facility] Comment on above: Performed By: #### L 501.5200, L500.3400, L500.2500, L100.0100, L501.2450, L700.6800 #### [facility] [address] [place], [address] Neutrophils/100 WBC (Bld) 58.4 % Normal 47-70 [facility] Comment on above: Performed By: #### L 501.5200, L500.3400, L500.2500, L100.0100, L501.2450, L700.6800 #### [facility] [address] [place], [address] Nucleated RBC (Bld) [#/Vol] 0 10*3/uL Normal 0-5 [facility] Comment on above: Performed By: #### L 501.5200, L500.3400, L500.2500, L100.0100, L501.2450, L700.6800 #### [facility] [address] [place], [address] Platelet mean volume (Bld) [Entitic vol] 8.8 fL Normal 6.2-12.0 [facility] Comment on above: Performed By: #### L 501.5200, L500.3400, L500.2500, L100.0100, L501.2450, L700.6800 #### [facility] [address] [place], [address] Platelets (Bld) [#/Vol] 346 10*3/uL Normal 150-450 [facility] Comment on above: Performed By: #### L 501.5200, L500.3400, L500.2500, L100.0100, L501.2450, L700.6800 #### [facility] [address] [place], [address] RBC (Bld) [#/Vol] 4.24 10*6/uL Normal 4.2-5.4 [facility] Comment on above: Performed By: #### L 501.5200, L500.3400, L500.2500, L100.0100, L501.2450, L700.6800 #### [facility] [address] [place], [address] RDW SD 42.7 fl Normal 35.1-43.9 [facility] Comment on above: Performed By: #### L 501.5200, L500.3400, L500.2500, L100.0100, L501.2450, L700.6800 #### [facility] [address] [place], [address] WBC (Bld) [#/Vol] 9.4 10*3/uL Normal 4.4-11.0 [facility] Comment on above: Performed By: #### L 501.5200, L500.3400, L500.2500, L100.0100, L501.2450, L700.6800 #### [facility] [address] [place], [address] Comprehensive Metabolic Prof [facility] 07-08-2024 Albumin [Mass/Vol] 3.6 g/dL Normal 3.2-5.0 [facility] Comment on above: Performed By: #### L 501.5200, L500.3400, L500.2500, L100.0100, L501.2450, L700.6800 #### [facility] [address] [place], [address] Albumin/Globulin [Mass ratio] 1.0 {ratio} Normal 0.9-2.4 [facility] Comment on above: Performed By: #### L 501.5200, L500.3400, L500.2500, L100.0100, L501.2450, L700.6800 #### [facility] [address] [place], [address] ALK P 103 U/L Normal 45-117 [facility] Comment on above: Performed By: #### L 501.5200, L500.3400, L500.2500, L100.0100, L501.2450, L700.6800 #### [facility] [address] [place], [address] ALT [Catalytic activity/Vol] 32 U/L Normal 13-56 [facility] Comment on above: Performed By: #### L 501.5200, L500.3400, L500.2500, L100.0100, L501.2450, L700.6800 #### [facility] [address] [place], [address] AST [Catalytic activity/Vol] 20 U/L Normal 15-37 [facility] Comment on above: Performed By: #### L 501.5200, L500.3400, L500.2500, L100.0100, L501.2450, L700.6800 #### [facility] [address] [place], [address] Bilirubin [Mass/Vol] 1.40 mg/dL High 0.20-1.00 [facility] Comment on above: Result Comment: For patients on eltrombopag therapy, use of Dimension [place] TBIL is not recommended. Performed By: #### L 501.5200, L500.3400, L500.2500, L100.0100, L501.2450, L700.6800 #### [facility] [address] [place], [address] BUN/CRE 14.7 RATIO Normal 10-20 [facility] Comment on above: Performed By: #### L 501.5200, L500.3400, L500.2500, L100.0100, L501.2450, L700.6800 #### [facility] [address] [place], [address] CA,Total 9.0 mg/dL Normal 8.5-10.1 [facility] Comment on above: Performed By: #### L 501.5200, L500.3400, L500.2500, L100.0100, L501.2450, L700.6800 #### [facility] [address] [place], [address] Chloride [Moles/Vol] 108 mmol/L High 98-107 [facility] Comment on above: Performed By: #### L 501.5200, L500.3400, L500.2500, L100.0100, L501.2450, L700.6800 #### [facility] [address] [place], [address] CO2 [Moles/Vol] 25.0 mmol/L Normal 21.0-32.0 [facility] Comment on above: Performed By: #### L 501.5200, L500.3400, L500.2500, L100.0100, L501.2450, L700.6800 #### [facility] [address] [place], [address] Creatinine [Mass/Vol] 0.68 mg/dL Normal 0.55-1.02 [facility] Comment on above: Result Comment: The validity of the calculated GFR GFRAA in patients over 70 years has not been determined. Clinical correlation is essential. Performed By: #### L 501.5200, L500.3400, L500.2500, L100.0100, L501.2450, L700.6800 #### [facility] [address] [place], [address] EST GFR - AA 139 mL/min Normal >60 [facility] Comment on above: Result Comment: Afri can Macedonian GFR Calc Performed By: #### L 501.5200, L500.3400, L500.2500, L100.0100, L501.2450, L700.6800 #### [facility] [address] [place], [address] GAP 5 Normal 5-15 [facility] Comment on above: Performed By: #### L 501.5200, L500.3400, L500.2500, L100.0100, L501.2450, L700.6800 #### [facility] [address] [place], [address] GFR/1.73 sq M.predicted among non-blacks MDRD (S/P/Bld) [Vol rate/Area] 115 mL/min/{1.73_m2} Normal >60 [facility] Comment on above: Result Comment: Non- GFR Calc Performed By: #### L 501.5200, L500.3400, L500.2500, L100.0100, L501.2450, L700.6800 #### [facility] [address] [place], [address] Globulin (S) [Mass/Vol] 3.5 g/dL Normal 2.2-4.2 [facility] Comment on above: Performed By: #### L 501.5200, L500.3400, L500.2500, L100.0100, L501.2450, L700.6800 #### [facility] [address] [place], [address] Glucose [Mass/Vol] 93 mg/dL Normal 74-106 [facility] Comment on above: Performed By: #### L 501.5200, L500.3400, L500.2500, L100.0100, L501.2450, L700.6800 #### [facility] [address] [place], [address] Potassium [Moles/Vol] 3.7 mmol/L Normal 3.5-5.1 [facility] Comment on above: Performed By: #### L 501.5200, L500.3400, L500.2500, L100.0100, L501.2450, L700.6800 #### [facility] [address] [place], [address] Sodium [Moles/Vol] 138 mmol/L Normal 136-145 [facility] Comment on above: Performed By: #### L 501.5200, L500.3400, L500.2500, L100.0100, L501.2450, L700.6800 #### [facility] [address] [place], [address] T PROT 7.1 g/dL Normal 6.4-8.2 [facility] Comment on above: Performed By: #### L 501.5200, L500.3400, L500.2500, L100.0100, L501.2450, L700.6800 #### [facility] [address] [place], [address] Urea nitrogen [Mass/Vol] 10 mg/dL Normal 7-18 [facility] Comment on above: Performed By: #### L 501.5200, L500.3400, L500.2500, L100.0100, L501.2450, L700.6800 #### [facility] [address] [place], [address] Hepatitis B Surface Antibody on 07-08-2024 HEP B Surf Ab Non-Reactive Normal [facility] Comment on above: Result Comment: Non Reactive: Inconsistent with immunity less than <10 mIU/mL Reactive: Consistent with immunity greater than or equal to 10 mIU/mL Performed By: #### L 501.5200, L500.3400, L500.2500, L100.0100, L501.2450, L700.6800 #### [facility] [address] [place], [place], [address] Hepatitis B Surface Antigeno n 07-08-2024 HEP B Surf Ag Non-Reactive Normal Nonreactive [facility] Comment on above: Performed By: #### L 501.5200, L500.3400, L500.2500, L100.0100, L501.2450, L700.6800 #### [facility] [address] [place], [place], [id number] Hepatitis C Antibodyon 07-08 Hepatitis C AB Non-Reactive Normal Nonreactive [facility] Comment on above: Result Comment: Non Reactive: < 0.8 Equivocal: >/= 0.8 to < 1.0 Reactive: >/= 1.0 The CDC requires that a reactive/equivocal HCV antibody result be sent out for confirmation. HCV Quant by PCR testing. Performed By: #### L 501.5200, L500.3400, L500.2500, L100.0100, L501.2450, L700.6800 #### [facility] [address] [place], [place], [id number] Rheumatoid Factoron 07-08-19 25 RHEUMATOID FAC < 10.0 Normal <15 [facility] Comment on above: Performed By: #### L 501.5200, L500.3400, L500.2500, L100.0100, L501.2450, L700.6800 #### [facility] [address] [place], [place], [id number] CRP, High Sensitivity [id number] on 06-30-2024 CRP, HIGH SENS 16.68 mg/L High 0.00-3.00 [facility] Comment on above: Result Comment: Rela tive Risk for Future Cardiovascular Event Low <1.00 Average 1.00 - 3.00 High >3.00 Performed at: [address] [id number] Agricultural Sales Representative: Que Cruz PhD, Phone: [phone] Performed By: #### L 501.5200, L500.3400, L500.2500, L100.0100, L501.2450, L700.6800 #### [facility] [address] [place], [place], [id number] Lyme Screen W/Reflex WBon LYME SCREEN Ab Negative Normal Negative [facility] Comment on above: Result Comment: Lyme antibodies not detected. Reflex testing is not indicated. No laboratory evidence of infection with B. burgdorferi (Lyme disease). Negative results may occur in patients recently infected (less than or equal to 14 days) with B. burgdorferi. If recent infection is suspected, repeat testing on a new sample collected in 7 to 14 days is recommended. Performed at: [address] [id number] Agricultural Sales Representative: Que Cruz PhD, Phone: [phone] Performed By: #### L 501.5200, L500.3400, L500.2500, L100.0100, L501.2450, L700.6800 #### [facility] [address] [place], [place], [id number] Emergency Department Summary on 06-24-2024 Emergency Department Summary [facility] Medical Records Department [address] [place] [address] Emergency Department Summary 06/24/24 MR#: [id number] Acct: [id number] Name: ALINA MALIK Rep #: [id number] : 2005 19 From: Tom Villar DO PCP: JACQUELIN Flores, [employer] Status:DEP ER Location: ED HPI History of Present Illness Chief Complaint: Dental Informant: patient Narrative Narrative: 19-year-old female presenting to the emergency room for dental pain. Patient states that she was seen here recently for dental and. Looks like she had a virtual visit on the and was started on Augmentin. Patient states that she pain is severe and she cannot take it anymore. No reported fevers. She states she has a appointment at [facility] in 1 month. She states that this is starting from an impacted wisdom tooth on the right lower side. PFSH PFSH Medical History EP (ectopic ) Palpitations Wears glasses Alcohol use Marijuana use Restless legs Migraine headache Non-smoker Asthma Shortness of breath on exertion Leg cramps History of pain when walking Bulimia nervosa, purging type Generalized anxiety disorder Borderline personality disorder Major depressive disorder, recurrent severe without psychotic features Visit for suture removal Home Medications ???Medication ???Instructions ???Recorded ???Last Taken ???Type fluoxetine 20 mg capsule 20 mg PO DAILY 12/30/23 Unknown History fluoxetine 10 mg tablet 10 mg PO DAILY 03/08/24 Unknown History ondansetron 4 mg disintegrating 4 mg PO TID PRN nausea and 03/08/24 Unknown Rx tablet vomiting #21 tabs oxycodone-acetaminophen 5 mg-325 1 tab PO Q6H PRN pain 3 days #12 03/08/24 Unknown Rx mg tablet (Percocet) tabs amoxicillin 875 mg-potassium 1 tab PO Q12H #14 tabs 06/23/24 Unknown Rx clavulanate 125 mg tablet Allergy/AdvReac Type Severity Reaction Status Date / Time bupropion (From Wellbutrin) Allergy Rash Verified 06/24/24 09:13 Family History Grandmother Breast cancer Cancer skin Mother Hypertension Seizures Surgical History Hx of cholecystectomy Social History household members: none Smoking Status: Never smoker alcohol intake: current details: occasionally substance use type: marijuana caffeine: Yes additional social history: Boyfriend-Vishnu ESQUIVEL ROS ED Constitutional Constitutional ED: Denies chills or weight loss Eyes Eyes: Denies change in vision or diplopia ENT ENT ED: Reports other Details: Dental pain ; Denies ear pain, rhinorrhea or sore throat Cardiovascular Cardiovascular: Denies chest pain, orthopnea, palpitations or racing heartbeat Respiratory/Chest Respiratory/Chest: Denies cough, dyspnea or orthopnea Gastrointestinal Gastrointestinal: Denies abdominal pain, diarrhea, nausea or vomiting Genitourinary Genitourinary ED: Denies dysuria, hematuria or urinary frequency Musculoskeletal Musculoskeletal: Denies arthralgias or myalgias Integumentary Denies abscess or rash Neurologic Neurologic: Denies headache(s) or weakness Psychiatric Psychiatric: Denies anxiety, depression, suicidal ideation or suicidal thoughts Endocrine Endocrinology: Denies polydipsia, polyphagia or polyuria Allergic/Immunologic Allergic/Immunologic ED: Denies mouth swelling, tongue swelling or urticaria EXAM Physical Exam Const Vital Signs: 06/24/24 09:13 Temperature 98.9 F Temperature Source Oral Pulse Rate 82 Respiratory Rate 18 Blood Pressure 136/84 H Blood Pressure Mean 101 Pulse Ox 99 Oxygen Delivery Method Room Air Positive well nourished, well developed and obese General Appearance ED: well developed and NAD Nutritional Appearance: obese HEENT Reports normocephalic, head/scalp atraumatic and moist mucous membranes HEENT Narrative: I do not appreciate trismus. There is no gum swelling or erythema or bleeding. Floor the mouth is soft. I do not appreciate any overlying facial swelling or erythema. Tympanic membranes appear normal. No lymphadenopathy. Eyes PERRL and EOMs intact bilaterally Neck no lymphadenopathy, supple and no JVD Resp normal respiratory effort and clear to auscultation bilaterally Cardio regular rate, regular rhythm and no murmurs GI normal to inspection, nondistended, normoactive bowel sounds and non-tender Palpation: soft Back/Spine no CVA tenderness and normal ROM Extremity normal to inspection General Extremety ED: Negative for edema General Extremity: Negative for edema Neuro oriented x3 and CN's II-XII intact bilaterally Sensorium / O (more content not included)... Normal [facility] Office Visit Reporton 2023 Office Visit Report [facility] [address] OFFICE VISIT Date of Service: 06/23/24 MR#: [id number] Acct: [id number] Patient: ALINA MALIK Rep #: [id number] : 2005 Provider: MONICA Kate Age/Sex: 19/F [place] [facility] Status: Signed Intake Vital Signs 03/08/24 00:28 Height 1.6 m Intake Visit Reasons: Pain Chief Complaint: dental pain Allergies bupropion (From Wellbutrin) Allergy (Verified 08/21/23 04:00) Rash PFSH Medical History EP (ectopic ) Palpitations Wears glasses Alcohol use Marijuana use Restless legs Migraine headache Non-smoker Asthma Shortness of breath on exertion Leg cramps History of pain when walking Bulimia nervosa, purging type Generalized anxiety disorder Borderline personality disorder Major depressive disorder, recurrent severe without psychotic features Visit for suture removal Surgical History Hx of cholecystectomy Family History Grandmother Breast cancer Cancer skin Mother Hypertension Seizures Social History household members: none Smoking Status: Never smoker alcohol intake: current details: occasionally substance use type: marijuana caffeine: Yes additional social history: Boyfriend-Vishnu Female Reproductive History Menstrual Ectopics: 1 HPI HPI Chief Complaint: dental pain Details: ALINA MALIK, is a 19 F who presents to the office today for dental pain. Pt has dental pain in the right lower wisdom tooth. It has known impaction and she has an appointment with a dentist in one month. She is concerned it has become infected. In the past several days she has had increased pain and swelling, and she has had a fever. No pus or drainage. None of the other teeth seem infected. She has been taking tylenol with minimal relief. She has also thrown up but has an old Rx for zofran that she has been taking that is controlling the nausea. ROS Const Constitutional: Positive for fever(s) ENT ENT: Positive for dental pain and mouth pain Resp Respiratory: Positive for cough Gastro GI: Positive for nausea/dyspepsia and vomiting Exam Const General: cooperative, healthy appearing, comfortable, no acute distress, well developed and well groomed Nutritional Appearance: average body habitus and well nourished Orientation: alert, awake and oriented x3 HENMT Head: normocephalic and atraumatic Teeth and gingiva: other (impacted right lower wisdom tooth with mild erythema no purulence) Other: right lower jaw tenderness to palp Coding Level of Care Code Off vis,new,level 3 Diagnoses Pain R52 Dental abscess K04.7 Assessment and Plan Assessment and Plan (1) Pain: (2) Dental abscess: Status: Acute Plan: 2/2 impacted right lower wisdom tooth. pain, swelling, fever. cant get into dentist for a month - has appointment at [facility]. I recommended she call the dental clinic and see if appointment can be pushed up or if she can get on a cancellation call list. in the meantime start amox/clav for acute infection. Tylenol 1000 mg po q8h prn pain. She cannot have nsaids as she is already taking meloxicam. can try ice pack prn pain. pt also has N/V - but this is controlled with an old zofran rx that she has. Disclaimer: This visit was performed virtually via live audio and video at the request of the patient. As such the physical exam and testing is limited by what is able to be seen through the patient's camera and lighting which may vary in quality, and limited by what the patient is able to perform via clinician instruction. If there is no significant improvement or new complications, the patient should follow up [id number] with a clinician of the appropriate level of care. Medications: New amoxicillin-pot clavulanate 875-125 mg 1 TAB PO Q12H 14 tabs 0RF 06/23/24 0704 Date Christian Tabor Signature: Date (if applicable) CC: Normal [facility] ALEJANDRINA Comprehensive Panelon ALEJANDRINA TABLE Comment Normal . [facility] Comment on above: Result Comment: Auto antibody Disease Association Condition Frequency --------- Antinuclear Antibody, SLE, mixed connective Direct (ALEJANDRINA-D) tissue diseases --------- dsDNA SLE 40 - 60% --------- Chromatin Drug induced SLE 90% SLE 48 - 97% --------- SSA (Ro) SLE 25 - 35% Sjogren's Syndrome 40 - 70% Lupus 100% --------- SSB (La) SLE 10% Sjogren's Syndrome 30% --------- Sm (anti-Bundy) SLE 15 - 30% --------- NEUROPSYCHOLOGY SERVICE DIRECTOR Mixed Connective Tissue Disease 95% (U1 nRNP, SLE 30 - 50% anti-ribonucleoprotein) Polymyositis and/or Dermatomyositis 20% --------- Scl-70 (antiDNA Scleroderma (diffuse) 20 - 35% topoisomerase) Crest 13% --------- Jaycee-1 Polymyositis and/or Dermatomyositis 20 - 40% --------- Centromere B Scleroderma - Crest variant 80% Performed By: #### L 501.5200, L500.3400, L500.2500, L100.0100, L501.2450, L700.6800 #### [facility] [address], [place], [id number] ANTI-CENT B AB <0.2 Normal 0.0-0.9 [facility] Comment on above: Performed By: #### L 501.5200, L500.3400, L500.2500, L100.0100, L501.2450, L700.6800 #### [facility] [address] [facility] [place], [place], [id number] ANTI-DNA (DS)AB 1 IU/mL Normal 0-9 [facility] Comment on above: Result Comment: Nega tive <5 Equivocal 5 - 9 Positive >9 Performed By: #### L 501.5200, L500.3400, L500.2500, L100.0100, L501.2450, L700.6800 #### [facility] [address] [place], [address] ANTI-JAYCEE-1 <0.2 Normal 0.0-0.9 [facility] Comment on above: Performed By: #### L 501.5200, L500.3400, L500.2500, L100.0100, L501.2450, L700.6800 #### [facility] [address] [place], [address] ANTI-SS-A < 0.2 Normal 0.0-0.9 [facility] Comment on above: Performed By: #### L 501.5200, L500.3400, L500.2500, L100.0100, L501.2450, L700.6800 #### [facility] [address] [place], [address] ANTI-SS-B < 0.2 Normal 0.0-0.9 [facility] Comment on above: Performed By: #### L 501.5200, L500.3400, L500.2500, L100.0100, L501.2450, L700.6800 #### [facility] [address] [place], [address] ANTICHROMATIN 0.2 AI Normal 0.0-0.9 [facility] Comment on above: Performed By: #### L 501.5200, L500.3400, L500.2500, L100.0100, L501.2450, L700.6800 #### [facility] [address] [place], [address] ANTISCLERODERM <0.2 Normal 0.0-0.9 [facility] Comment on above: Performed By: #### L 501.5200, L500.3400, L500.2500, L100.0100, L501.2450, L700.6800 #### [facility] [address] [place], [address] NEUROPSYCHOLOGY SERVICE DIRECTOR Ab 0.2 AI Normal 0.0-0.9 [facility] Comment on above: Performed By: #### L 501.5200, L500.3400, L500.2500, L100.0100, L501.2450, L700.6800 #### [facility] [address] [place], [address] BUNDY Ab <0.2 Normal 0.0-0.9 [facility] Comment on above: Performed By: #### L 501.5200, L500.3400, L500.2500, L100.0100, L501.2450, L700.6800 #### [facility] [address] [place], [address] CCP IgG Antibodieson 024 CCP IgG Ab. 0 units Normal 0-19 [facility] Comment on above: Result Comment: Nega tive <20 Weak positive 20 - 39 Moderate positive 40 - 59 Strong positive >59 Performed at: [employer] [id number] Agricultural Sales Representative: Que Cruz PhD, Phone: [phone] Performed By: #### L 501.5200, L500.3400, L500.2500, L100.0100, L501.2450, L700.6800 #### [facility] [address] [place], [address] CRP, High Sensitivity [id number] on 06-11-2024 CRP, HIGH SENS 26.95 mg/L High 0.00-3.00 [facility] Comment on above: Result Comment: Resu lts confirmed on dilution. Relative Risk for Future Cardiovascular Event Low <1.00 Average 1.00 - 3.00 High >3.00 Performed at: [email or web address] [address] [id number] Agricultural Sales Representative: Que Cruz PhD, Phone: [phone] Performed By: #### L 501.5200, L500.3400, L500.2500, L100.0100, L501.2450, L700.6800 #### [facility] [address] [place], [address] Vitamin B12on 06-11-2024 Cobalamin (Vitamin B12) [Mass/Vol] 721 pg/mL Normal 211-911 [facility] Comment on above: Performed By: #### L 501.5200, L500.3400, L500.2500, L100.0100, L501.2450, L700.6800 #### [facility] [address] [place], [address] Vitamin D,25 Hydroxyon 06-11 Vitamin D 25-OH 7.3 ng/mL Normal [facility] Comment on above: Result Comment: Janett min D 25(OH) Status Range Deficiency <20 ng/mL (50nmol/L) Insufficiency 20 - 30 ng/mL (50 - 75 nmol/L) Sufficiency 30 - 100 ng/mL (75 - 250 nmol/L) Toxicity >100 ng/mL (>250 nmol/L) Performed By: #### L 501.5200, L500.3400, L500.2500, L100.0100, L501.2450, L700.6800 #### [facility] [address] [place], [address] CBC W/Diff, Automatedon 05-24 Absolute Lymph 3.15 X10 3/uL Normal 0.83-4.51 [facility] Comment on above: Performed By: #### L 501.5200, L500.3400, L500.2500, L100.0100, L501.2450, L700.6800 #### [facility] [address] [place], [address] Absolute Neut 5.1 X10 3/uL Normal 2.0-7.7 [facility] Comment on above: Performed By: #### L 501.5200, L500.3400, L500.2500, L100.0100, L501.2450, L700.6800 #### [facility] [address] [place], [address] Basophils/100 WBC (Bld) 1.0 % Normal 0-1 [facility] Comment on above: Performed By: #### L 501.5200, L500.3400, L500.2500, L100.0100, L501.2450, L700.6800 #### [facility] [address] [place], [address] Eosinophils/100 WBC (Bld) 3.7 % Normal 0-5 [facility] Comment on above: Performed By: #### L 501.5200, L500.3400, L500.2500, L100.0100, L501.2450, L700.6800 #### [facility] [address] [place], [address] Erythrocyte distribution width (RBC) [Ratio] 14.1 % Normal 11.6-14.6 [facility] Comment on above: Performed By: #### L 501.5200, L500.3400, L500.2500, L100.0100, L501.2450, L700.6800 #### [facility] [address] [place], [address] Hematocrit (Bld) [Volume fraction] 36.5 % Low 37-47 [facility] Comment on above: Performed By: #### L 501.5200, L500.3400, L500.2500, L100.0100, L501.2450, L700.6800 #### [facility] [address] [place], [address] Hemoglobin (Bld) [Mass/Vol] 12.1 g/dL Normal 12.0-15.0 [facility] Comment on above: Performed By: #### L 501.5200, L500.3400, L500.2500, L100.0100, L501.2450, L700.6800 #### [facility] [address] [place], [address] IG% 0.600 Normal 0.0-0.9 [facility] Comment on above: Result Comment: IG% - Immature Granulocytes (promyelocytes, myelocytes and metamyelocytes) > 1% indicates that a LEFT SHIFT is Present. Performed By: #### L 501.5200, L500.3400, L500.2500, L100.0100, L501.2450, L700.6800 #### [facility] [address] [place], [address] Lymphocytes/100 WBC (Bld) 35.1 % Normal 19-41 [facility] Comment on above: Performed By: #### L 501.5200, L500.3400, L500.2500, L100.0100, L501.2450, L700.6800 #### [facility] [address] [place], [address] MCH (RBC) [Entitic mass] 27.9 pg Normal 27.0-32.0 [facility] Comment on above: Performed By: #### L 501.5200, L500.3400, L500.2500, L100.0100, L501.2450, L700.6800 #### [facility] [address] [place], [address] MCHC (RBC) [Mass/Vol] 33.2 g/dL Normal 32-36 [facility] Comment on above: Performed By: #### L 501.5200, L500.3400, L500.2500, L100.0100, L501.2450, L700.6800 #### [facility] [address] [place], [address] MCV (RBC) [Entitic vol] 84.3 fL Normal 81-99 [facility] Comment on above: Performed By: #### L 501.5200, L500.3400, L500.2500, L100.0100, L501.2450, L700.6800 #### [facility] [address] [place], [address] Monocytes/100 WBC (Bld) 3.2 % Normal 0-10 [facility] Comment on above: Performed By: #### L 501.5200, L500.3400, L500.2500, L100.0100, L501.2450, L700.6800 #### [facility] [address] [place], [address] Neutrophils/100 WBC (Bld) 56.4 % Normal 47-70 [facility] Comment on above: Performed By: #### L 501.5200, L500.3400, L500.2500, L100.0100, L501.2450, L700.6800 #### [facility] [address] [place], [address] Nucleated RBC (Bld) [#/Vol] 0 10*3/uL Normal 0-5 [facility] Comment on above: Performed By: #### L 501.5200, L500.3400, L500.2500, L100.0100, L501.2450, L700.6800 #### [facility] [address] [place], [address] Platelet mean volume (Bld) [Entitic vol] 8.7 fL Normal 6.2-12.0 [facility] Comment on above: Performed By: #### L 501.5200, L500.3400, L500.2500, L100.0100, L501.2450, L700.6800 #### [facility] [address] [place], [address] Platelets (Bld) [#/Vol] 316 10*3/uL Normal 150-450 [facility] Comment on above: Performed By: #### L 501.5200, L500.3400, L500.2500, L100.0100, L501.2450, L700.6800 #### [facility] [address] [place], [address] RBC (Bld) [#/Vol] 4.33 10*6/uL Normal 4.2-5.4 [facility] Comment on above: Performed By: #### L 501.5200, L500.3400, L500.2500, L100.0100, L501.2450, L700.6800 #### [facility] [address] [place], [address] RDW SD 43.4 fl Normal 35.1-43.9 [facility] Comment on above: Performed By: #### L 501.5200, L500.3400, L500.2500, L100.0100, L501.2450, L700.6800 #### [facility] [address] [place], [address] WBC (Bld) [#/Vol] 9.0 10*3/uL Normal 4.4-11.0 [facility] Comment on above: Performed By: #### L 501.5200, L500.3400, L500.2500, L100.0100, L501.2450, L700.6800 #### [facility] [address] [place], [address] Comprehensive Metabolic Prof [facility] 06-09-2024 Albumin [Mass/Vol] 3.2 g/dL Normal 3.2-5.0 [facility] Comment on above: Performed By: #### L 501.5200, L500.3400, L500.2500, L100.0100, L501.2450, L700.6800 #### [facility] [address] [place], [address] Albumin/Globulin [Mass ratio] 0.9 {ratio} Normal 0.9-2.4 [facility] Comment on above: Performed By: #### L 501.5200, L500.3400, L500.2500, L100.0100, L501.2450, L700.6800 #### [facility] [address] [place], [address] ALK P 118 U/L High 45-117 [facility] Comment on above: Performed By: #### L 501.5200, L500.3400, L500.2500, L100.0100, L501.2450, L700.6800 #### [facility] [address] [place], [address] ALT [Catalytic activity/Vol] 25 U/L Normal 13-56 [facility] Comment on above: Performed By: #### L 501.5200, L500.3400, L500.2500, L100.0100, L501.2450, L700.6800 #### [facility] [address] [place], [address] AST [Catalytic activity/Vol] 23 U/L Normal 15-37 [facility] Comment on above: Performed By: #### L 501.5200, L500.3400, L500.2500, L100.0100, L501.2450, L700.6800 #### [facility] [address] [place], [address] Bilirubin [Mass/Vol] 0.60 mg/dL Normal 0.20-1.00 [facility] Comment on above: Result Comment: For patients on eltrombopag therapy, use of Dimension [place] TBIL is not recommended. Performed By: #### L 501.5200, L500.3400, L500.2500, L100.0100, L501.2450, L700.6800 #### [facility] [address] [place], [address] BUN/CRE 18.3 RATIO Normal 10-20 [facility] Comment on above: Performed By: #### L 501.5200, L500.3400, L500.2500, L100.0100, L501.2450, L700.6800 #### [facility] [address] [place], [address] CA,Total 8.7 mg/dL Normal 8.5-10.1 [facility] Comment on above: Performed By: #### L 501.5200, L500.3400, L500.2500, L100.0100, L501.2450, L700.6800 #### [facility] [address] [place], [address] Chloride [Moles/Vol] 108 mmol/L High 98-107 [facility] Comment on above: Performed By: #### L 501.5200, L500.3400, L500.2500, L100.0100, L501.2450, L700.6800 #### [facility] [address] [place], [address] CO2 [Moles/Vol] 25.0 mmol/L Normal 21.0-32.0 [facility] Comment on above: Performed By: #### L 501.5200, L500.3400, L500.2500, L100.0100, L501.2450, L700.6800 #### [facility] [address] [place], [address] Creatinine [Mass/Vol] 0.77 mg/dL Normal 0.55-1.02 [facility] Comment on above: Result Comment: The validity of the calculated GFR GFRAA in patients over 70 years has not been determined. Clinical correlation is essential. Performed By: #### L 501.5200, L500.3400, L500.2500, L100.0100, L501.2450, L700.6800 #### [facility] [address] [place], [address] EST GFR - AA 122 mL/min Normal >60 [facility] Comment on above: Result Comment: Afri can [place]onian GFR Calc Performed By: #### L 501.5200, L500.3400, L500.2500, L100.0100, L501.2450, L700.6800 #### [facility] [address] [place], [address] GAP 5 Normal 5-15 [facility] Comment on above: Performed By: #### L 501.5200, L500.3400, L500.2500, L100.0100, L501.2450, L700.6800 #### [facility] [address] [place], [address] GFR/1.73 sq M.predicted among non-blacks MDRD (S/P/Bld) [Vol rate/Area] 101 mL/min/{1.73_m2} Normal >60 [facility] Comment on above: Result Comment: Non- GFR Calc Performed By: #### L 501.5200, L500.3400, L500.2500, L100.0100, L501.2450, L700.6800 #### [facility] [address] [place], [address] Globulin (S) [Mass/Vol] 3.6 g/dL Normal 2.2-4.2 [facility] Comment on above: Performed By: #### L 501.5200, L500.3400, L500.2500, L100.0100, L501.2450, L700.6800 #### [facility] [address] [place], [address] Glucose [Mass/Vol] 97 mg/dL Normal 74-106 [facility] Comment on above: Performed By: #### L 501.5200, L500.3400, L500.2500, L100.0100, L501.2450, L700.6800 #### [facility] [address] [place], [address] Potassium [Moles/Vol] 4.0 mmol/L Normal 3.5-5.1 [facility] Comment on above: Performed By: #### L 501.5200, L500.3400, L500.2500, L100.0100, L501.2450, L700.6800 #### [facility] [address] [place], [address] Sodium [Moles/Vol] 138 mmol/L Normal 136-145 [facility] Comment on above: Performed By: #### L 501.5200, L500.3400, L500.2500, L100.0100, L501.2450, L700.6800 #### [facility] [address] [place], [address] T PROT 6.8 g/dL Normal 6.4-8.2 [facility] Comment on above: Performed By: #### L 501.5200, L500.3400, L500.2500, L100.0100, L501.2450, L700.6800 #### [facility] [address] [place], [address] Urea nitrogen [Mass/Vol] 14 mg/dL Normal 7-18 [facility] Comment on above: Performed By: #### L 501.5200, L500.3400, L500.2500, L100.0100, L501.2450, L700.6800 #### [facility] [address] [place], [address] Erythrocyte Sed Rateon 06-09 SED RATE 16 mm/hr Normal 0-30 [facility] Comment on above: Performed By: #### L 501.5200, L500.3400, L500.2500, L100.0100, L501.2450, L700.6800 #### [facility] [address] [place], [address] Rheumatoid Factoron 06-09-20 24 RHEUMATOID FAC < 10.0 Normal <15 [facility] Comment on above: Performed By: #### L 501.5200, L500.3400, L500.2500, L100.0100, L501.2450, L700.6800 #### [facility] [address] [facility] [place], [address] Thyroid Stim Hormone (TSH)on 06-09-2024 TSH 1.980 uIU/mL Normal 0.358-3.740 [facility] Comment on above: Performed By: #### L 501.5200, L500.3400, L500.2500, L100.0100, L501.2450, L700.6800 #### [facility] [address], [place], [id number] C-REACTIVE PROTEINon 024 CRP 1.87 mg/dl High 0.00 - 0.90 [facility] Comment on above: Performed By: #### 2 31034 #### [facility],[address] [place] [address] CBC + DIFFon 05-03-2024 Baso # 0.02 x10EE3/UL Normal 0.00 - 0.10 [facility] Comment on above: Performed By: #### 2 [address]24 #### [address] [address] Basophils/100 WBC (Bld) 0.2 % Normal 0.0 - 2.0 [facility] Comment on above: Performed By: #### 2 47054 #### [facility],[address] [place], [place] [address] CBC + DIFF Normal [facility] Comment on above: Result Comment: CBC- COMPLETE BLOOD COUNT Performed By: #### 2 05022 #### [facility],[address] [place] [address] EO # 0.31 x10EE3/UL Normal 0.00 - 0.50 [facility] Comment on above: Performed By: #### 2 70760 #### [facility],[address] [place] [address] Eosinophils/100 WBC (Bld) 2.4 % Normal 0.0 - 7.0 [facility] Comment on above: Performed By: #### 2 78006 #### [facility],[address] [place] [address] Erythrocyte distribution width (RBC) [Ratio] 14.4 % Normal 12.0 - 15.6 [facility] Comment on above: Performed By: #### 2 78771 #### [facility],[address] [place] [address] Hematocrit (Bld) [Volume fraction] 38.9 % Normal 34.0 - 46.0 [facility] Comment on above: Performed By: #### 2 51161 #### [facility],[address] [place], [place] [id number] Hemoglobin (Bld) [Mass/Vol] 13.1 g/dL Normal 12.0 - 16.0 [facility] Comment on above: Performed By: #### 2 59816 #### [facility],[address] [place] [address] Lymph # 3.46 x10EE3/UL High 0.80 - 2.80 [facility] Comment on above: Performed By: #### 2 09240 #### [facility],[address] [place], [place] [id number] Lymphocytes/100 WBC (Bld) 27.4 % Normal 20.0 - 45.0 [facility] Comment on above: Performed By: #### 2 90766 #### [facility],[address] [place] [address] MANUAL DIFF N/A Normal [facility] Comment on above: Performed By: #### 2 79943 #### [facility],[address] [place] [address] MCH (RBC) [Entitic mass] 28 pg Normal 27 - 33 [facility] Comment on above: Performed By: #### 2 76398 #### [facility],[address] [place] [address] MCHC 34 X10 3 Normal 32 - 36 [facility] Comment on above: Performed By: #### 2 85856 #### [facility],[address] [place] [address] MCV (RBC) [Entitic vol] 83 fL Normal 80 - 99 [facility] Comment on above: Performed By: #### 2 74688 #### [facility],[address] [place] [address] [place] # 0.32 x10EE3/UL Normal 0.20 - 1.00 [facility] Comment on above: Performed By: #### 2 61669 #### [facility],[address] [place] [address] MONOS % 2.5 % Normal 0.0 - 10.0 [facility] Comment on above: Performed By: #### 2 46526 #### [facility],[address] [place] [address] Morphology Julian (Bld) [Interp] N/A Normal [facility] Comment on above: Performed By: #### 2 08413 #### [facility],[address] [place] [address] Neut # 8.53 x10EE3/UL High 1.50 - 7.10 [facility] Comment on above: Performed By: #### 2 85396 #### [facility],[address] [place] [address] Neutrophils/100 WBC (Bld) 67.5 % Normal 46.0 - 76.0 [facility] Comment on above: Performed By: #### 2 71556 #### [facility],[address] [place] [address] PLATELET 375 x10EE3/UL Normal 150 - 450 [facility] Comment on above: Performed By: #### 2 41579 #### [facility],[address] [place] [address] Platelet mean volume (Bld) [Entitic vol] 7.0 fL Normal 6.6 - 10.5 [facility] Comment on above: Result Comment: AUTO MATED DIFFERENTIAL Performed By: #### 2 44985 #### [facility],[address] [place] [address] RBC 4.69 x 10EE6/UL Normal 4.10 - 5.30 [facility] Comment on above: Performed By: #### 2 03304 #### [facility],[address] [place] [address] WBC 12.6 x 10EE3/UL High 4.5 - 10.8 [facility] Comment on above: Performed By: #### 2 72544 #### [facility],[address] [place] [address] CMP with eGFRon 05-03-2024 AGE 19 years Normal [facility] Comment on above: Performed By: #### 2 42388 ####[facility],[address] [place] [address] Albumin [Mass/Vol] 3.3 g/dL Low 3.4 - 5.0 [facility] Comment on above: Performed By: #### 2 05624 ####[facility],[address] [place] [address] Albumin/Globulin [Mass ratio] 0.8 {ratio} Low 0.9 - 1.6 [facility] Comment on above: Performed By: #### 2 86044 ####[facility],[address] [place] [address] ALK PHOS 114 U/L Normal 46 - 116 [facility] Comment on above: Performed By: #### 2 56526 ####[facility],[address] [place] [address] ALT [Catalytic activity/Vol] 17 U/L Normal 16 - 63 [facility] Comment on above: Performed By: #### 2 49979 ####[facility],[address] [place] [address] Anion gap [Moles/Vol] 13 mmol/L Normal 10 - 20 [facility] Comment on above: Performed By: #### 2 08523 ####[facility],[address] [place] [address]255 AST [Catalytic activity/Vol] 21 U/L Normal 13 - 39 [facility] Comment on above: Performed By: #### 2 74107 ####[facility],[address] [place] [address] B/C RATIO 12 ratio Normal 0 - 30 [facility] Comment on above: Performed By: #### 2 59613 ####[facility],[address] [place] [address] Bilirubin [Mass/Vol] 0.8 mg/dL Normal 0.2 - 1.0 [facility] Comment on above: Performed By: #### 2 23656 ####[facility],[address] [place] [address] Calcium [Mass/Vol] 8.5 mg/dL Normal 8.5 - 10.1 [facility] Comment on above: Performed By: #### 2 42398 ####[facility],[address] [place] [address] Chloride [Moles/Vol] 105 mmol/L Normal 98 - 107 [facility] Comment on above: Performed By: #### 2 37317 ####[facility],[address] [place] [address] CMP with eGFR Normal [facility] Comment on above: Result Comment: COMP REHENSIVE METABOLIC PANEL Performed By: #### 2 90636 ####[facility],[address] [place] [address] CO2 [Moles/Vol] 27.7 mmol/L Normal 21.0 - 32.0 [facility] Comment on above: Performed By: #### 2 42047 ####[facility],[address] [place] [address] Creatinine [Mass/Vol] 0.73 mg/dL Normal 0.55 - 1.02 [facility] Comment on above: Performed By: #### 2 63376 ####[facility],[address] [place] [address] GFR/1.73 sq M.predicted among non-blacks MDRD (S/P/Bld) [Vol rate/Area] mL/min/{1.73_m2} Normal 60 - 999 [facility] Comment on above: Performed By: #### 2 29714 ####[facility],[address] [place] [address] Result Comment: ACCO RDING TO THE NATIONAL KIDNEY DISEASE EDUCATION PROGRAM(NKDE), A NORMAL eGFR IS A VALUE GREATER THAN OR EQUAL TO 60 ML/MIN/1.73 SQ METERS. CHRONIC KIDNEY DISEASE: <60mL/MIN/1.73 SQ METERS KIDNEY FAILURE: <15mL/MIN/1.73 SQ METERS THIS TEST SHOULD ONLY BE USED FOR PATIENTS 18 YEARS OF AGE AND OLDER. Globulin (S) [Mass/Vol] 4.0 g/dL High 1.5 - 3.8 [facility] Comment on above: Performed By: #### 2 92328 ####[facility],[address] [place] [address] Glucose [Mass/Vol] 95 mg/dL Normal 74 - 106 [facility] Comment on above: Performed By: #### 2 95950 ####[facility],[address] [place] [address] Potassium [Moles/Vol] 3.6 mmol/L Normal 3.5 - 5.1 [facility] Comment on above: Performed By: #### 2 60648 ####[facility],[address] [place] [address] Protein [Mass/Vol] 7.3 g/dL Normal 6.4 - 8.2 [facility] Comment on above: Performed By: #### 2 07134 ####[facility],[address] [place] [address] Sodium [Moles/Vol] 142 mmol/L Normal 136 - 145 [facility] Comment on above: Performed By: #### 2 74268 ####[facility],[address] [place] [address] Urea nitrogen [Mass/Vol] 9 mg/dL Normal 7 - 18 [facility] Comment on above: Performed By: #### 2 54773 ####[facility],[address] [place] [address] CPKon 05-03-2024 CPK 133 U/L Normal 26 - 192 [facility] Comment on above: Performed By: #### 2 69970 #### [facility],[address] [place] [address] CERVICAL W/O CONTRASTon 1 07-03-2023 CT CERVICAL W/O CONTRAST [place] [address] Patient: ALINA MALIK Phone#: : 2005 Age: 19 Gender: F Pt. Type: ER Account: [id number] Location: 052 Ordering: CARLOTA CHOW Exam Date: 05/03/2024/4:37 Family Phys: Charge Code: [id number] Physician: Kimble Order #: [id number] Dose#: 15.5 mGy PROCEDURE: CT CERVICAL WITHOUT CONTRAST COMPARISON: None. INDICATIONS: Herniated disc. TECHNIQUE: Multi-planar CT images were created without intravenous contrast. All CT scans at this facility use dose modulation, iterative reconstruction, and/or weight-based dosing when appropriate to reduce radiation dose to as low as reasonably achievable. IV CONTRAST: No IV contrast used,ml TOTAL DOSE: 15.5 CTDIvol(mGy) FINDINGS: CRANIOCERVICAL AREA: Normal foramen magnum with no Chiari malformation. PARASPINAL AREA: Normal with no visible mass. BONES: No fracture, pars defect, or osseous lesion. There is reversal of the normal cervical lordosis. CERVICAL DISC LEVELS: C2-C3: No significant disc/facet abnormality, spinal stenosis, or foraminal stenosis. C3-C4: No significant disc/facet abnormality, spinal stenosis, or foraminal stenosis. C4-C5: No significant disc/facet abnormality, spinal stenosis, or foraminal stenosis. C5-C6: No significant disc/facet abnormality, spinal stenosis, or foraminal stenosis. C6-C7: No significant disc/facet abnormality, spinal stenosis, or foraminal stenosis. C7-T1: No significant disc/facet abnormality, spinal stenosis, or foraminal stenosis. CONCLUSION: 1. There is no evidence of acute fracture or subluxation. 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 [address] [id number] 05/02/2024 Patient: ALINA MALIK Sex: Female : 2005 Age: 19y MEASUREMENTS: Wt: 99.8 kg ALLERGIES: Wellbutrin Medication Ordered Medication Administration Date/Time IV NS 0.9 % 1000 03:35 05/03 IV NS 0.9 % 1000 mL started in bag#1 1000 mL at Started mL at 999 mL/hr 999 mL/hr via Site# 1. Allergies verified and confirmed 5 rights. Via 03:35 05/03/2024 (NOW x1) dial-a-flow. IV patency established. IV site checked: no pain, Andrea Sanchez R.N. redness, or swelling. IV flushed thoroughly pre-medication Stopped administration. Information reviewed with patient including reason 05:21 05/03/2024 for taking this medication. Verbalizes understanding. - 03:36 Jonny Burks R.N. Scanned 05:21 11 Medication Discontinued: bag #1 infused. Total amount infused: 1000 mL. IV patency established. IV site checked: no pain, redness, or swelling. IV flushed thoroughly post-medication administration. - 06:21 Andrea Sanchez R.N. KetorOLAC 03:37 05/03 KetorOLAC (Toradol) IVP 15 mg given via Site# 1. IV Given (Toradol) IVP 15 mg patency established. IV site checked: no pain, redness, or swelling. 03:37 05/03/2024 (NOW x1) IV flushed thoroughly pre-medication administration. IVP given by Andrea Sanchez R.N. CDW. Information reviewed with patient including reason for taking Scanned this medication. Verbalizes understanding. Medication Wastage: 15 mg wasted. - 03:37 Andrea Sanchez R.N. 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 Allergies verified and confirmed 5 rights. IV patency 03:36 05/03/2024 mg (NOW x1) established. IV site checked: no pain, redness, or swelling. IV Andrea Sanchez R.N. flushed thoroughly pre-medication administration. IVP given by Scanned CDW. Information reviewed with patient including reason for taking this medication. Verbalizes understanding. - 03:37 Andrea Sanchez R.N. 2 of 2 [facility] ED NURSES CLINICAL NOTEon ED NURSES CLINICAL NOTE Nurse Narrative Nurse Clinical [address] [address] [phone] 05/02/2024 Patient: ALINA MALIK Sex: Female : 2005 Age: 19y Disposition: Discharge to Home Disposition Decision Time: 05:57 05/03/2024 Departure Time: 06:11 05/03/2024 TRIAGE Arrived by private vehicle. Historian: patient. Triage time: 00:05/03/2024. Acuity: LEVEL 3. Chief Complaint: (Left Arm Pain). SEPSIS SCREEN: NEGATIVE. SIRS criteria negative. No possible sources of infection. -- 00:05/03/24 Jose MorrisNCristian 00:05/03/24. BP: 145/96 MAP: 112. HR: 83. RR: 14. O2 saturation: 99% Temperature: 98.2 F. Pain level now 12/31. -- 00:05/03/24 NATALIA Cunha R.N. Measurements: 00:05/03/24 Wt: 99.8 kg -- 00:05/03/24 NATALIA Cunha R.N. Medications: unable to obtain home medications -- 00:05/03/24 NATALIA Cunha R.N. Allergies: Wellbutrin -- 00:05/03/24 NATALIA Cunha R.N. 1 of 4 Nurse Narrative Problems: Asthma -- 00:05/03/24 NATALIA Cunha R.N. Depression -- 00:05/03/24 NATALIA Cunha R.N. Anxiety disorder -- 00:04 05/03/24 NATALIA Cunha R.N. ADDITIONAL SURGERIES: Cholecystectomy -- 00:05/03/24 NATALIA Cunha R.N. History 00:05/03/24. SOCIAL HX: Never smoker. Occasional alcohol use. Drug use: marijuana. ABUSE ASSESSMENT: The patient answered yes to the question(s) Do you feel safe in your home? and no to the question(s) Are you afraid to go home?. SELF HARM ASSESSMENT: Self harm assessment was performed. The patient answered no to the question(s) Have you recently felt down, depressed, or hopeless? and Do you have thoughts of harming or killing yourself?. FALL RISK ASSESSMENT: Fall risk assessment completed. No risk factors identified. -- 00:05/03/24 Jose MorrisN. 00:05/03/24. SOCIAL HX: The patient has not traveled outside the [place] Infectious disease exposure: No infectious disease exposure. -- 00:05/03/24 NATALIA Cunha R.N. Interventions 00:01 05/03/24. Advanced care plan discussed with patient. Patient does not have advanced directive. -- 00:05/03/24 NATALIA Cunha R.N. PHYSICAL ASSESSMENT 03:23 05/03/24. Ambulatory to room. GENERAL / NEURO / PSYCH: Alert. Oriented X 4. Appears in no acute distress. ( LEFT ARM PAIN WITH SOME WEAKNESS X 2 MONTHS, PAIN FROM PALM OF HAND TO LEFT SHOULDER ON AND OFF 10/31.). 2 of 4 Nurse Narrative RESPIRATORY: Respirations not labored. Breath sounds within normal limits. CVS: Capillary refill less than 2 seconds. Pulses within normal limits. GI / : Abdomen soft and nontender. SKIN: Skin intact. Skin is warm and dry. Normal skin turgor. -- 03:05/03/24 NATALIA Sanchez R.N. NURSING PROGRESS NOTES 03:05/03/24. BP: 145/96 MAP: 112. HR: 83. RR: 14. O2 saturation: 99% Temperature: 98.2 F. Pain level now 7/10. -- 03:23 05/03/24 NATALIA Sanchez R.N. 03:24 05/03/24. The patient is resting quietly. ( PT SEEN BY DR MELO , NOW W/O FURTHER ORDERS.). RESPIRATORY: No respiratory distress. Breath sounds normal. CVS: Normal sinus rhythm noted. SKIN: Skin is warm. Skin color within normal limits. Two patient identifiers checked. Call light placed in reach. Side rails up. Bed placed in lowest position. Brakes of bed on. -- 03:24 05/03/24 NATALIA Sanchez R.N. 03:35 05/03/24. IV NS 0.9 % 1000 mL started in bag#1 1000 mL at 999 mL/hr via Site# 1. Allergies verified and confirmed 5 rights. Via dial-a-flow. IV patency established. IV site checked: no pain, redness, or swelling. IV flushed thoroughly pre-medication administration. Information reviewed with patient including reason for taking this medication. Verbalizes understanding. -- 03:36 05/03/24 NATALIA Sanchez R.N. 03:35 05/03/24. Site #1 started via IV in the right antecubital space with a 20g angiocath with aseptic technique and good blood return; 1 attempt. Blood drawn: green and purple tube(s). Labeled in the presence of the patient and sent to the lab. Saline lock flushed with 5 mL saline. -- 03:35 05/03/24 NATALIA Sanchez R.N. 03:36 05/03/24. Dexamethasone (Dedcadron) IVP 10 mg given via Site# 1. Allergies verified and confirmed 5 rights. IV patency established. IV site checked: no pain, redness, or swelling. IV flushed thoroughly pre-medication administration. IVP given by CDW. Information reviewed with patient including reason for taking this medication. Verbalizes understanding. -- 03:37 05/03/24 NATALIA Sanchez R.N. 03:37 05/03/24. KetorOLAC (Toradol) IVP 15 mg given via Site# 1. IV patency established. IV site checked: no pain, redness, or swelling. IV flushed thoroughly pre-medication administration. IVP given by CDW. Information reviewed with patient including reason for taking this medication. Verbalizes understanding. Medication Wa (more content not included)... [facility] ED ORDER SHEET ([facility]OE ONLY)on 05-03-2024 ED ORDER SHEET (CPOE ONLY) Order Sheet Order Sheet [address] [place] [address] [id number] 05/02/2024 Patient: ALINA MALIK Sex: Female : 2005 Age: 19y MEASUREMENTS: Wt: 99.8 kg ALLERGIES: Wellbutrin MEDICATION/IV/DRIP/FLUI D ORDERS Order Description Priority Entered Acknowledged Completed IV NS 0.9 %1000 mL at 999 03:18 05/03/2024 03:24 03:36 mL/hr (NOW x1) Carlota Chow D.O. 05/03/2024 05/03/2024 Andrea Burks R.N. RCristianN. KetorOLAC (Toradol) IVP15 mg 03:18 05/03/2024 03:24 03:37 (NOW x1) Carlota Chow D.O. 05/03/2024 05/03/2024 Andrea Burks R.N. RRah Reason for ordering with alerts: Clinical consideration given --03:18 05/03/2024 Carlota Chow D.O. Dexamethasone (Dedcadron) 03:18 05/03/2024 03:24 03:37 IVP10 mg (NOW x1) Carlota Chow D.O. 05/03/2024 05/03/2024 Andrea Burks R.N. RCristianNCristian Reason for ordering with alerts: Clinical consideration given --03:18 05/03/2024 Carlota Chow D.O. 1 of 2 Order Sheet LAB ORDERS Order Description Priority Entered Acknowledged Collected Completed CBC w Diff Stat Stat 03:18 05/03/2024 03:24 05/03/2024 Michelle Souza R.N. CMP Stat Stat 03:18 05/03/2024 03:24 05/03/2024 Michelle Souza R.N. CRP Stat Stat 03:18 05/03/2024 03:24 05/03/2024 Michelle Souza R.N. CPK Stat Stat 03:18 05/03/2024 03:24 05/03/2024 Michelle Souza R.N. HCG, Qual Serum Stat Stat 03:18 05/03/2024 03:24 05/03/2024 Michelle Souza R.N. DIAGNOSTIC STUDY ORDERS Order Description Priority Entered Acknowledged Completed CT C-Spine wo Cont Stat Stat 03:18 05/03/2024 03:24 Carlota Chow D.O. 05/03/2024 Andrea Sanchez R.N. Order Comments: 03:17 05/03/2024: Status: Not . Carlota Chow D.O. Reason for Study: Herniated Disc STAFF ORDERS Order Description Priority Entered Acknowledged Collected Completed [Electronically signed by Carlota Chow D.O. (05/03/2024 07:02 EST)] 2 of 2 [facility] ED PHYSICIAN CLINICAL REPORT on 05-03-2024 ED PHYSICIAN CLINICAL REPORT Narrative Physician Clinical Narrative [facility] [address] [place] [address] [phone] 05/02/2024 Patient: ALINA MALIK Sex: Female : 2005 Age: 19y Disposition: Discharge to Home Disposition Decision Time: 05:57 05/03/2024 Departure Time: 06:11 05/03/2024 Measurements Wt: 99.8 kg Initial Vital Sign Measured Time BP MAP HR RR O2Sat ETCO2 Temp Pain GCS RTS 00:08 05/03/2024 145/96 112 83 14 99% 98.2 F 7 Time Seen: 03:00 05/03/2024. Arrived- By private vehicle. Historian- patient. HISTORY OF PRESENT ILLNESS Chief Complaint: UPPER EXTREMITY PAIN. Severity is described as being moderate in degree. The quality is noted to be sharp. It is described as radiating to the left neck. This started 2 months and is still present (worse). Modifying factors. Not worsened by anything. Not made better by anything. Symptoms located in the area of the left arm. No chest pain, difficulty breathing, swelling, sensory loss or motor loss. No repetitive hand use at work. The patient has not had redness. Patient denies an injury. Similar symptoms previously. Patient has had similar symptoms several times. Recent medical care: Not recently seen/assessed. 1 of 10 Narrative REVIEW OF SYSTEMS PSYCHIATRIC: No depression. NEUROLOGICAL: No headache. THROAT: No sore throat. RESPIRATORY: No cough. SKIN: No skin rash. ENDO/HEME/LYMPH: No enlarged lymph nodes. MUSCULOSKELETAL: The patient has had neck pain. GI: No abdominal pain, nausea, vomiting, diarrhea or black stools. : No difficulty with urination, urinary frequency or hematuria. CONSTITUTIONAL: No fever or chills. Status: Not . PAST HISTORY See nurses notes. Asthma. Hypokalemia. Anxiety disorder Asthma Depression Surgeries: Cholecystectomy. Surgeries: Cholecystectomy Medications: unable to obtain home medications Allergies: Wellbutrin SOCIAL HISTORY Never smoker. Alcohol use. Drug use. ADDITIONAL NOTES The nursing notes have been reviewed. PHYSICAL EXAM 2 of 10 Narrative Appearance: Alert. Oriented X3. No acute distress. Eyes: Pupils equal, round and reactive to light. ENT: Nose normal. Pharynx normal. Neck: Pain in the neck upon movement. Neck supple. (Tender diffusely to the posterior cervical region both on the midline in the bilateral para spinal muscle regions. No nuchal rigidity.). CVS: Normal heart rhythm. Heart sounds normal. Respiratory: No respiratory distress. Painless inspiration. Breath sounds normal. Abdomen: Soft and nontender. No organomegaly. Back: Normal inspection. No tenderness. ROM normal. Skin: Skin intact. Skin warm and dry. Normal skin color. Extremities: Upper extremities normal to inspection. Upper extremities exhibit normal ROM. Upper extremities nontender. No upper extremity edema. Extremities otherwise negative. Neuro: Oriented X 3. No motor deficit. No sensory deficit. Reflexes normal. (Good bilateral brachioradialis reflexes. +2/ 4 bilaterally. brisk. 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 LABS, X-RAYS, AND EKG CT C-Spine: No acute disease. Note - Tests: (CT scan of the cervical spine was read by the radiologist as showing no malalignment or acute cervical spine fracture. Straightening of the cervical spine is noted and may be due to positioning within the cervical restrained collar or muscle spasm which can cause an identical appearance. No prevertebral soft tissue swelling. No soft tissue gas or radiopaque foreign bodies.). Laboratory Tests: C-REACTIVE PROTEIN Final ELIZABETH: 05/03/2024 03:40:00 EST MsgRcvd: 05/03/2024 04:23 EST Lab Test Result Reference Status Received Comments 1.87 mg/dl 05/03/2024 04:23 CRP 0.00 - 0.90 Final Above high normal EST CBC + DIFF Final ELIZABETH: 05/03/2024 03:40:00 EST MsgRcvd: 05/03/2024 04:19 EST Lab Test Result Reference Status Received Comments Narrative 05/03/2024 04:19 CBC-COMPLETE CBC + DIFF Final EST BLOOD COUNT 12.6 x 10/UL 05/03/2024 04:19 WBC 4.5 - 10.8 Final Above high normal EST 05/03/2024 04:19 RBC 4.69 x 10/UL 4.10 - 5.30 Final EST 05/03/2024 04:19 HEMOGLOBIN 13.1 g/dl 12.0 - 16.0 Final EST 05/03/2024 04:19 HEMATOCRIT 38.9 % 34.0 - 46.0 Final EST 05/03/2024 04:19 MCV 83 fl 80 - 99 Final EST 05/03/2024 04:19 MCH 28 pg 27 - 33 Final EST 05/03/2024 04:19 MCHC 34 X10 3 32 - 36 Final EST 05/03/2024 04:19 RDW/CV 14.4 % 12.0 - 15.6 Final EST 05/03/2024 04:19 PLATELET 375 x10/UL 150 - 450 Final EST 05/03/2024 04:19 AUTOMATED MPV 7.0 fl 6.6 - 10.5 Final EST DIFFERENTIAL 05/03/2024 04:19 NEUT % 67.5 % 46.0 - 76.0 Final EST 05/03/2024 04:19 LYMPH % 27.4 % 20.0 - 45.0 Final EST 05/03/2024 04:19 MONOS % 2.5 % 0.0 - 10.0 Final EST 4 of 10 Narr (more content not included)... [facility] ED SUPER BILLon 05-03-2024 ED SUPER BILL [place] [id number] [facility] [place] [address] [phone] 05/02/2024 Patient: ALINA MALIK Sex: Female : 2005 Age: 19y Item Facility Professional Category Description Code Code Quantity Fee Total Nurse/E/M EMERGENCY 449293 1 $0.00 $0.00 DEPARTMENT VISIT HIGH/URGENT SEVERITY (21857-60) Nurse/IV/IM/Infusions Hydration 627387 2 $0.00 $0.00 additional hour (92093) Nurse/IV/IM/Infusions IVP additional 550273 1 $0.00 $0.00 push (69102) Nurse/IV/IM/Infusions IVP initial 807192 1 $0.00 $0.00 (67883) Grand Total $0.00 Providers Carlota Chow D.O. Chief Complaint 1 of 2 Superbill UPPER EXTREMITY PAIN. Principal Diagnosis Chronic upper extremity pain involving the left forearm. Neuropathy. ICD-10 Codes G62.9: Polyneuropathy, unspecified M79.632: Pain in left forearm 2 of 2 [facility] ED VISIT SUMMARYon ED VISIT SUMMARY Visit Overview Visit Overview [place] [address] [place] [address] [phone] 05/02/2024 Patient: ALINA MALIK Sex: Female : 2005 Age: 19y 05/03/2024 07:02 AM EST ED Arrival:23:52 05/02/2024 EST Status:not Recent Travel:no Language:eng Adv Directive:No Isolation Status: Ethnicity:N Fall Risk:no risk Infectious Disease Exposure:no Measurements:220.0 lb / 99.8 kg Self-Harm Status:risk Sepsis Screen:negative Chief Complaint:(Left Arm Pain) ALLERGIES Wellbutrin HOME MEDICATIONS Unable To Obtain PAST MEDICAL HISTORY / PROBLEMS Anxiety disorder Asthma Depression Hypokalemia See nurses notes 1 of 3 Visit Overview PAST SURGICAL HISTORY Cholecystectomy SOCIAL HISTORY Smoking status: No Alcohol use: Yes Drug use: Yes ED COURSE MEDICATIONS GIVEN IN EMERGENCY DEPARTMENT 03:35 05/03/24 IV NS 0.9 % 1000 mL 999 mL/hr 03:36 05/03/24 Dexamethasone (Dedcadron) IVP 10 mg 03:37 05/03/24 KetorOLAC (Toradol) IVP 15 mg IV SITE INFORMATION INTAKE OUTPUT REASSESMENT (most recent) 04:50 05/03/24. The patient is calm and resting quietly. Patient waiting for radiology results and disposition. VITAL SIGNS First Vitals Last Vitals Temp 00:08 05/03/24 98.2 F Temp 06:11 05/03/24 BP 00:08 05/03/24 145/96 BP 06:11 05/03/24 129/81 HR 00:08 05/03/24 83 HR 06:11 05/03/24 66 RR 00:08 05/03/24 14 RR 06:11 05/03/24 O2 Sat 00:08 05/03/24 99% O2 Sat 06:11 05/03/24 Pain 00:08 05/03/24 7 Pain 06:11 05/03/24 ETCO2 00:08 11/10/24 ETCO2 06:11 05/03/24 GCS 00:08 05/03/24 GCS 06:11 05/03/24 RTS 00:08 05/03/24 RTS 06:11 05/03/24 2 of 3 Visit Overview PROCEDURES NURSING INTERVENTIONS LABS / STUDIES LABS / STUDIES ORDERED CBC w Diff CMP CPK CRP CT C-Spine wo Cont HCG, Qual Serum CLINICAL IMPRESSION CHRONIC UPPER EXTREMITY PAIN INVOLVING THE LEFT FOREARM NEUROPATHY 3 of 3 [facility] ED VITALS FLOW SHEETon 05-03 ED VITALS FLOW SHEET Vitals Vital Sign Flow Sheet [address] [place] [address] [phone] 05/02/2024 Patient: ALINA MALIK Sex: Female : 2005 Age: 19y Measurements Wt: 99.8 kg Measured Time BP MAP HR RR O2Sat ETCO2 Temp Pain GCS RTS 06:11 05/03/2024 129/81 89 66 06:11 05/03/2024 16 96% 4 04:14 05/03/2024 114/72 84 52 04:13 05/03/2024 54 96% 04:08 05/03/2024 55 97% 04:03 05/03/2024 73 96% 03:58 05/03/2024 61 96% 03:53 05/03/2024 65 96% 03:48 05/03/2024 62 95% 03:44 05/03/2024 138/72 94 54 03:43 05/03/2024 59 96% 03:23 05/03/2024 5 00:08 05/03/2024 145/96 112 83 14 99% 98.2 F 7 1 of 1 [facility] SERUM QUALon 05-03 EXTERNAL QC DONE? YES [facility] Comment on above: Performed By: #### [id number] ####[facility],[address] [place], [place] [address] INTERNAL QC PASS [facility] Comment on above: Performed By: #### [id number] ####[facility],[address] [place], [place] [id number] SER Negative Normal NEGATIVE [facility] Comment on above: Performed By: #### 2 [id number] ####[facility],[address] [place] [id number] CNOVon 03-30-2024 CNOV Office Visit (UCWSTR ) ALINA MALIK ([id number]) 1 F Date Time Provider Department 03/30/24 5:15 PM [address]AV[address] CROSS [facility] During your visit today, we recorded the following information about you: Bhavani Cross PA 03/30/2024 5:10 PM Signed 19-year-old female presents for shakiness, lightheadedness starting today. Patient was working at the [employer] and she started to feel hot and shaky. She states she had to sit down on the floor because she felt lightheaded and dizzy. She feels shaky. No chest pain or shortness of breath. Has not been sick recently. No vomiting or diarrhea. Denies this ever occurring in the past. Patient has stable gait, normal speech. At this time, due to dizziness/lightheadedne ss, patient be referred to the emergency room. Patient refuses EMS, will take herself. Allergies As of Date: 03/30/2024 Noted Allergy Reaction WELLBUTRIN (BUPROPION) 06/14/2022 2 - Rash Date Reviewed: 02/17/2024 Reviewed by: Sue Ryder MA - Fully Assessed Primary Visit Diagnosis:Procedure not carried out [Z53.9] Prescriptions as of 03/30/2024 - topiramate (TOPAMAX) 25 mg tablet Take 25 mg by mouth daily at bedtime. - FLUoxetine (PROZAC) 20 mg capsule Take 20 mg by mouth once daily. - cyclobenzaprine (FLEXERIL) 10 mg tablet Take 1 tablet by mouth three times a day as needed for muscle spasm (or pain). - propranolol HCl (PROPRANOLOL ORAL) Take 10 mg by mouth as needed. - meloxicam (MOBIC) 15 mg tablet Take 1 tablet by mouth once daily. - ARIPiprazole (ABILIFY) 5 mg tablet Take 5 mg by mouth once daily. 4 mg once daily - traZODone (DESYREL) 100 mg tablet Take by mouth. Problem List As Of Date: 03/30/2024 (None) Encounter Status:Closed by BHAVANI CROSS on 03/30/24 [facility]domen [facility] Cheston Acute [facility]domen Inc Chest [facility] Imaging Services [address], [place] [id number] Acute [facility]domen [facility] Chest MR#: [id number] Acct: [id number] Name: ALINA MALIK Rep #: [id number] : 2005 F 19 From: Conrado Baires MD PCP: JACQUELIN Flores, [employer]OX TESTER-C Status: REG ER Study: Acute Abdomen Inc Chest Date of Exam: 03/08/24 Exam# [id number] Ordering Dr: [place] [id number] EXAM: XR ABDOMEN, 2 VIEWS AND XR CHEST, 1 VIEW CLINICAL INDICATION: ABD PAIN TECHNIQUE: Frontal view of the chest, frontal view of the abdomen/pelvis and upright or decubitus view of the abdomen. COMPARISON: No relevant prior studies available. FINDINGS: CHEST: LUNGS AND PLEURAL SPACES: Unremarkable. No consolidation or edema. No pneumothorax. No effusion. HEART: Unremarkable. Cardiac silhouette not enlarged. MEDIASTINUM: Central airways and mediastinal contour are unremarkable. ABDOMEN: INTRAPERITONEAL SPACE: No free air. GASTROINTESTINAL TRACT: Unremarkable. Non-obstructive. No bowel or stomach distention. ORGANS: IUD in the expected location of the uterus. No organomegaly. No abnormal calcifications. TUBES, LINES AND DEVICES: None. BONES/JOINTS: No acute findings. SOFT TISSUES: No acute findings. RAD/Acute Abdomen Inc Chest IMPRESSION: No acute findings in the chest, abdomen or pelvis. Electronically Signed: Conrado Baiers MD at 1:50 EDT , CC: [facility] JACKELIN Olsen; Remy Sawyer DO Cream Tester: Signed Normal [facility] Basic Metabolic Profile (BMP )on 03-08-2024 BUN/CRE 12.9 RATIO Normal 10-20 [facility] Comment on above: Performed By: #### L 501.5200, L500.3400, L500.2500, L100.0100, L501.2450, L700.6800 #### [facility] [address] [place], [address] CA,Total 9.1 mg/dL Normal 8.5-10.1 [facility] Comment on above: Performed By: #### L 501.5200, L500.3400, L500.2500, L100.0100, L501.2450, L700.6800 #### [facility] [address] [place], [address] Chloride [Moles/Vol] 110 mmol/L High 98-107 [facility] Comment on above: Performed By: #### L 501.5200, L500.3400, L500.2500, L100.0100, L501.2450, L700.6800 #### [facility] [address] [place], [address] CO2 [Moles/Vol] 26.0 mmol/L Normal 21.0-32.0 [facility] Comment on above: Performed By: #### L 501.5200, L500.3400, L500.2500, L100.0100, L501.2450, L700.6800 #### [facility] [address] [place], [address] Creatinine [Mass/Vol] 0.77 mg/dL Normal 0.55-1.02 [facility] Comment on above: Result Comment: The validity of the calculated GFR GFRAA in patients over 70 years has not been determined. Clinical correlation is essential. Performed By: #### L 501.5200, L500.3400, L500.2500, L100.0100, L501.2450, L700.6800 #### [facility] [address] [place], [address] ECRCL 152.31 ml/min Normal [facility] Comment on above: Performed By: #### L 501.5200, L500.3400, L500.2500, L100.0100, L501.2450, L700.6800 #### [facility] [address] [place], [address] EST GFR - AA 121 mL/min Normal >60 [facility] Comment on above: Result Comment: Afri can Macedonian GFR Calc Performed By: #### L 501.5200, L500.3400, L500.2500, L100.0100, L501.2450, L700.6800 #### [facility] [address] [place], [address] GAP 6 Normal 5-15 [facility] Comment on above: Performed By: #### L 501.5200, L500.3400, L500.2500, L100.0100, L501.2450, L700.6800 #### [facility] [address] [place], [address] GFR/1.73 sq M.predicted among non-blacks MDRD (S/P/Bld) [Vol rate/Area] 100 mL/min/{1.73_m2} Normal >60 [facility] Comment on above: Result Comment: Non- GFR Calc Performed By: #### L 501.5200, L500.3400, L500.2500, L100.0100, L501.2450, L700.6800 #### [facility] [address] [place], [address] Glucose [Mass/Vol] 118 mg/dL High 74-106 [facility] Comment on above: Result Comment: Fast ing Glucose result from 100 to 125 mg/dL suggests IMPAIRED HOMEOSTASIS per A.D.A. criteria. Performed By: #### L 501.5200, L500.3400, L500.2500, L100.0100, L501.2450, L700.6800 #### [facility] [address] [place], [address] Potassium [Moles/Vol] 3.8 mmol/L Normal 3.5-5.1 [facility] Comment on above: Performed By: #### L 501.5200, L500.3400, L500.2500, L100.0100, L501.2450, L700.6800 #### [facility] [address] [place], [address] Sodium [Moles/Vol] 142 mmol/L Normal 136-145 [facility] Comment on above: Performed By: #### L 501.5200, L500.3400, L500.2500, L100.0100, L501.2450, L700.6800 #### [facility] [address] [place], [address] Urea nitrogen [Mass/Vol] 10 mg/dL Normal 7-18 [facility] Comment on above: Performed By: #### L 501.5200, L500.3400, L500.2500, L100.0100, L501.2450, L700.6800 #### [facility] [address] [place], [address] CBC W/Diff, Automatedon 02-22 Absolute Lymph 3.41 X10 3/uL Normal 0.83-4.51 [facility] Comment on above: Performed By: #### L 501.5200, L500.3400, L500.2500, L100.0100, L501.2450, L700.6800 #### [facility] [address] [place], [address] Absolute Neut 6.1 X10 3/uL Normal 2.0-7.7 [facility] Comment on above: Performed By: #### L 501.5200, L500.3400, L500.2500, L100.0100, L501.2450, L700.6800 #### [facility] [address] [place], [address] Basophils/100 WBC (Bld) 0.7 % Normal 0-1 [facility] Comment on above: Performed By: #### L 501.5200, L500.3400, L500.2500, L100.0100, L501.2450, L700.6800 #### [facility] [address] [place], [address] Eosinophils/100 WBC (Bld) 3.6 % Normal 0-5 [facility] Comment on above: Performed By: #### L 501.5200, L500.3400, L500.2500, L100.0100, L501.2450, L700.6800 #### [facility] [address] [place], [address] Erythrocyte distribution width (RBC) [Ratio] 13.9 % Normal 11.6-14.6 [facility] Comment on above: Performed By: #### L 501.5200, L500.3400, L500.2500, L100.0100, L501.2450, L700.6800 #### [facility] [address] [place], [address] Hematocrit (Bld) [Volume fraction] 37.9 % Normal 37-47 [facility] [place] Comment on above: Performed By: #### L 501.5200, L500.3400, L500.2500, L100.0100, L501.2450, L700.6800 #### [facility] [address] [place], [address] Hemoglobin (Bld) [Mass/Vol] 12.3 g/dL Normal 12.0-15.0 [facility] [place] Comment on above: Performed By: #### L 501.5200, L500.3400, L500.2500, L100.0100, L501.2450, L700.6800 #### [facility] [place] [facility] [address] [place], [address] IG% 0.300 Normal 0.0-0.9 [facility] [place] Comment on above: Result Comment: IG% - Immature Granulocytes (promyelocytes, myelocytes and metamyelocytes) > 1% indicates that a LEFT SHIFT is Present. Performed By: #### L 501.5200, L500.3400, L500.2500, L100.0100, L501.2450, L700.6800 #### [facility] [place] [facility] [address] [place], [address] Lymphocytes/100 WBC (Bld) 32.9 % Normal 19-41 [facility] [place] Comment on above: Performed By: #### L 501.5200, L500.3400, L500.2500, L100.0100, L501.2450, L700.6800 #### [facility] [place] [facility] [address] [place], [address] MCH (RBC) [Entitic mass] 27.1 pg Normal 27.0-32.0 [facility] [place] Comment on above: Performed By: #### L 501.5200, L500.3400, L500.2500, L100.0100, L501.2450, L700.6800 #### [facility] [place] [facility] [address] [place], [address] MCHC (RBC) [Mass/Vol] 32.5 g/dL Normal 32-36 [facility] Comment on above: Performed By: #### L 501.5200, L500.3400, L500.2500, L100.0100, L501.2450, L700.6800 #### [facility] [place] [facility] [address] [place], [address] MCV (RBC) [Entitic vol] 83.5 fL Normal 81-99 [facility] [place] Comment on above: Performed By: #### L 501.5200, L500.3400, L500.2500, L100.0100, L501.2450, L700.6800 #### [facility] [place] [facility] [address] [place], [address] Monocytes/100 WBC (Bld) 3.7 % Normal 0-10 [facility] [place] Comment on above: Performed By: #### L 501.5200, L500.3400, L500.2500, L100.0100, L501.2450, L700.6800 #### [facility] [place] [facility] [address] [place], [address] Neutrophils/100 WBC (Bld) 58.8 % Normal 47-70 [facility] [place] Comment on above: Performed By: #### L 501.5200, L500.3400, L500.2500, L100.0100, L501.2450, L700.6800 #### [facility] [place] [facility] [address] [place], [address] Nucleated RBC (Bld) [#/Vol] 0 10*3/uL Normal 0-5 [facility] [place] Comment on above: Performed By: #### L 501.5200, L500.3400, L500.2500, L100.0100, L501.2450, L700.6800 #### [facility] [place] [facility] [address] [place], [address] Platelet mean volume (Bld) [Entitic vol] 8.8 fL Normal 6.2-12.0 [facility] [place] Comment on above: Performed By: #### L 501.5200, L500.3400, L500.2500, L100.0100, L501.2450, L700.6800 #### [facility] [place] [facility] [address] [place], [address] Platelets (Bld) [#/Vol] 350 10*3/uL Normal 150-450 [facility] [place] Comment on above: Performed By: #### L 501.5200, L500.3400, L500.2500, L100.0100, L501.2450, L700.6800 #### [facility] [place] [facility] [address] [place], [address] RBC (Bld) [#/Vol] 4.54 10*6/uL Normal 4.2-5.4 [facility] Comment on above: Performed By: #### L 501.5200, L500.3400, L500.2500, L100.0100, L501.2450, L700.6800 #### [facility] [place] [facility] [address] [place], [address] RDW SD 42.2 fl Normal 35.1-43.9 [facility] [place] Comment on above: Performed By: #### L 501.5200, L500.3400, L500.2500, L100.0100, L501.2450, L700.6800 #### [facility] [place] [facility] [address] [place], [address] WBC (Bld) [#/Vol] 10.4 10*3/uL Normal 4.4-11.0 [facility] Comment on above: Performed By: #### L 501.5200, L500.3400, L500.2500, L100.0100, L501.2450, L700.6800 #### [facility] [place] [facility] [address] [place], [address] Emergency Department Summary on 03-08-2024 Emergency Department Summary [facility] Medical Records Department [address] [place] [address] Emergency Department Summary 03/08/24 MR#: [id number] Acct: [id number] Name: ALINA MALIK Rep #: [id number] : 2005 19 From: Remy Sawyer DO PCP: Nikki Olsen Maverick, AIR BOX TESTER-C Status:REG ER Location: ED HPI History of Present Illness Chief Complaint: Abd Pain Informant: patient Narrative Narrative: Patient is a 19-year-old female with past medical history of anxiety depression and palpitations. She states for the past 2 days she has had upper abdominal discomfort with bouts of nausea and vomiting. She states the emesis has been food contents and bile but not dark or bloody in nature. She reports approximately 5-7 episodes over the last 2 days. She also reports she has had loose stool/diarrhea associated with her symptoms and reports that this has not been black or bloody and she also reports approximate 5-7 episodes over the last 2 days. She denies any known sick contacts she denies any recent antibiotic use or travel outside the country. She states that she feels like symptoms are slowly worsening and not improving over time and with this she has concern for potential infection and comes in for evaluation. She states that she had her gallbladder removed approximately 2 years ago [facility] Medical History EP (ectopic ) Palpitations Wears glasses Alcohol use Marijuana use Restless legs Migraine headache Non-smoker Asthma Shortness of breath on exertion Leg cramps History of pain when walking Bulimia nervosa, purging type Generalized anxiety disorder Borderline personality disorder Major depressive disorder, recurrent severe without psychotic features Visit for suture removal Home Medications ???Medication ???Instructions ???Recorded ???Last Taken ???Type fluoxetine 20 mg capsule 20 mg PO DAILY 12/30/23 Unknown History fluoxetine 10 mg tablet 10 mg PO DAILY 03/08/24 Unknown History ondansetron 4 mg disintegrating 4 mg PO TID PRN nausea and 03/08/24 Unknown Rx tablet vomiting #21 tabs oxycodone-acetaminophen 5 mg-325 1 tab PO Q6H PRN pain 3 days #12 03/08/24 Unknown Rx mg tablet (Percocet) tabs Allergy/AdvReac Type Severity Reaction Status Date / Time bupropion (From Wellbutrin) Allergy Rash Verified 08/21/23 04:00 Family History Grandmother Breast cancer Cancer skin Mother Hypertension Seizures Surgical History Hx of cholecystectomy Social History household members: none Smoking Status: Never smoker alcohol intake: current details: occasionally substance use type: marijuana caffeine: Yes additional social history: Boyfriend-Vishnu ROS ROS ED Constitutional Constitutional ED: Denies chills or fever(s) ENT ENT ED: Denies rhinorrhea or sore throat Cardiovascular Cardiovascular: Denies chest pain Respiratory/Chest Respiratory/Chest: Denies cough or dyspnea Gastrointestinal Gastrointestinal: Reports abdominal pain, diarrhea, nausea and vomiting; Denies melena Genitourinary Genitourinary ED: Denies dysuria or hematuria Musculoskeletal Musculoskeletal: Denies back pain Integumentary Denies rash Neurologic Neurologic: Denies headache(s) Psychiatric Psychiatric: Reports anxiety and depression Hematologic/Lymphatic Hematologic/Lymphatic: Denies easy bleeding or easy bruising EXAM Physical Exam Const Vital Signs: 03/08/24 00:28 Temperature 98.8 F Temperature Source Oral Pulse Rate 100 Respiratory Rate 15 Blood Pressure 160/94 H Blood Pressure Mean 116 Pulse Ox 99 Oxygen Delivery Method Room Air Positive well nourished, well developed and obese General Appearance ED: well developed; Negative for pallor Nutritional Appearance: obese HEENT Reports dry mucous membranes HEENT Narrative: Mucous membranes are dry and tacky No tongue or lip swelling no oral lesions no airway edema or compromise No secondary findings in the posterior pharynx to suggest infection Mouth ED: Yes dry mucous membranes Mouth: dry mucous membranes Eyes PERRL and EOMs intact bilaterally General Eye ED: Negative for scleral icterus Neck supple Resp normal respiratory effort and clear to auscultation bilaterally Cardio regular rate and regular rhythm GI non-distended and no masses GI Narrative: Abdomen is soft and nondistended with slightly hyperactive bowel sounds. There is pain with palpation in the midepigastric region without voluntary guarding or rigidity. No pulsatile mass or fluid wave. No hernia palpated. No increased tympany Auscultat (more content not included)... Normal [facility] Lipaseon 03-08-2024 Lipase [Catalytic activity/Vol] 22 U/L Normal 13-75 [facility] [place] Comment on above: Result Comment: Lorna lazar note: LIPASE revised reference range effective 22. New Lipase methodology. Expected to produce lower values than the previous assay method. NEW Reference Range: 13 - 75 U/L Performed By: #### L 501.5200, L500.3400, L500.2500, L100.0100, L501.2450, L700.6800 #### [facility] [place] [facility] [address] [place], [address] Liver Profileon 03-08-2024 Albumin [Mass/Vol] 3.5 g/dL Normal 3.2-5.0 [facility] Comment on above: Performed By: #### L 501.5200, L500.3400, L500.2500, L100.0100, L501.2450, L700.6800 #### [facility] [place] [facility] [address] [place], [address] ALK P 118 U/L High 45-117 [facility] [place] Comment on above: Performed By: #### L 501.5200, L500.3400, L500.2500, L100.0100, L501.2450, L700.6800 #### [facility] [place] [facility] [address] [place], [address] ALT [Catalytic activity/Vol] 17 U/L Normal 13-56 [facility] [place] Comment on above: Performed By: #### L 501.5200, L500.3400, L500.2500, L100.0100, L501.2450, L700.6800 #### [facility] [place] [facility] [address] [place], [address] AST [Catalytic activity/Vol] 19 U/L Normal 15-37 [facility] [place] Comment on above: Performed By: #### L 501.5200, L500.3400, L500.2500, L100.0100, L501.2450, L700.6800 #### [facility] [place] [facility] [address] [place], [address] Bilirubin [Mass/Vol] 0.70 mg/dL Normal 0.20-1.00 [facility] Comment on above: Result Comment: For patients on eltrombopag therapy, use of Dimension [place] TBIL is not recommended. Performed By: #### L 501.5200, L500.3400, L500.2500, L100.0100, L501.2450, L700.6800 #### [facility] [place] [facility] [address] [place], [address] Bilirubin.direct [Mass/Vol] 0.18 mg/dL Normal 0.00-0.30 [facility] [place] Comment on above: Performed By: #### L 501.5200, L500.3400, L500.2500, L100.0100, L501.2450, L700.6800 #### [facility] [place] [facility] [address] [place], [address] Globulin (S) [Mass/Vol] 3.7 g/dL Normal 2.2-4.2 [facility] [place] Comment on above: Performed By: #### L 501.5200, L500.3400, L500.2500, L100.0100, L501.2450, L700.6800 #### [facility] [place] [facility] [address] [place], [address] T PROT 7.2 g/dL Normal 6.4-8.2 [facility] [place] Comment on above: Performed By: #### L 501.5200, L500.3400, L500.2500, L100.0100, L501.2450, L700.6800 #### [facility] [place] [facility] [address] [place], [address] Magnesiumon 03-08-2024 Magnesium [Mass/Vol] 2.0 mg/dL Normal 1.6-2.6 [facility] Comment on above: Performed By: #### L 501.5200, L500.3400, L500.2500, L100.0100, L501.2450, L700.6800 #### [facility] [place] [facility] [address] [place], [address] ,Serum,hCG Quali.on 03-08-2024 HCG, SERUM QUAL Negative Normal [facility] [place] Comment on above: Performed By: #### L 501.5200, L500.3400, L500.2500, L100.0100, L501.2450, L700.6800 #### [facility] [place] [facility] [address] [place], [address] Echo Completeon 02-19-2024 Echo Complete [facility] [address] [place] [address] Echo Complete 02/19/24 1320 MR#: [id number] Acct: [id number] Name: ALINA MALIK Rep #: [id number] : 2005 19 From: Shan Brody MD Attending Dr: JACQUELIN Flores, [employer]OX TESTER-C Status : REG CLI Ordering Dr: Nikki Olsen [employer] TE[employer]-C Date: 02/18 Location: CVS Sex: F C Admitted: Reason For Study: PAROXYSMAL TACHYCARDIA Procedure This was a 2D Doppler, Color Flow transthoracic echocardiogram. The study was technically difficult. Exam performed in department. Left Ventricle Normal size and thickness. The left ventricular ejection fraction is 65 %. No evidence for diastolic dysfunction. Right Ventricle Normal right ventricle. Atria The left atrium is mildly enlarged. Normal right atrium. Mitral Valve Trivial mitral valve insufficiency. Tricuspid Valve Trivial tricuspid valve insufficiency. Right ventricular systolic pressure estimated to be 38 mmHg. Aortic Valve Trisinus/trileaflet aortic valve. Pulmonic Valve The pulmonic valve is not well visualized. Trivial pulmonic valve insufficiency. Great Vessels Normal sized aortic root. Pericardium/Pleural No pericardial effusion. MMode/2D Measurements Calculations LVIDd: 4.6 cm IVSd: 0.94 cm Ao root diam: 2.6 cm LVIDs: 3.0 cm LVPWd: 0.88 cm LA dimension: 4.3 cm RVDd: 3.4 cm FS: 35.0 % LAV(MOD-bp): 64.2 ml LVAd ap4: 30.3 cm2 SV(MOD-sp4): 61.0 ml LAV(MOD-bp) Indexed: 28.5 ml/m2 LVLd ap4: 8.1 cm LAV(MOD-sp2): 63.2 ml EDV(MOD-sp4): 92.4 ml LAV(MOD-sp4): 63.1 ml EDV(sp4-el): 95.7 ml LVAs ap4: 15.2 cm2 LVLs ap4: 6.4 cm ESV(MOD-sp4): 31.4 ml ESV(sp4-el): 30.9 ml EF(MOD-sp4): 66.0 % EF(sp4-el): 67.7 % SV(sp4-el): 64.7 ml LA A4 area: 20.5 cm2 LA dimension(2D): 4.2 cm RA A4 area: 12.4 cm2 TAPSE: 4.2 cm Time Measurements MV dec time: 0.20 sec Doppler Measurements Calculations MV E max champ: 126.9 cm/sec Lat Peak E' Champ: 20.2 cm/sec Med Peak E' Champ: 15.1 cm/sec MV A max champ: 95.5 cm/sec E/E' lat: 6.3 E/E' med: 8.4 MV E/A: 1.3 MV V2 max: 122.4 cm/sec MV P1/2t max champ: 125.5 cm/sec Ao V2 max: 186.8 cm/sec MV max P.0 mmHg MV P1/2t: 60.8 msec Ao max P.0 mmHg MV V2 mean: 77.0 cm/sec Ao V2 mean: 132.6 cm/sec MV mean P.6 mmHg MV dec slope: 604.8 cm/sec2 Ao mean P.8 mmHg MV V2 VTI: 26.5 cm MVA(P1/2t): 3.6 cm2 Ao V2 VTI: 39.2 cm AV (velocity ratio): 0.82 LV V1 max: 154.5 cm/sec PA V2 max: 118.8 cm/sec TR max champ: 266.1 cm/sec LV V1 max P.6 mmHg PA V2 mean: 81.1 cm/sec TR max P.5 mmHg LV V1 mean P.3 mmHg LV V1 mean: 110.1 cm/sec LV V1 VTI: 32.1 cm ECHO/Echo Complete Interpretation Summary The study was technically difficult. The left ventricular ejection fraction is 65 %. The left atrium is mildly enlarged. Right ventricular systolic pressure estimated to be 38 mmHg. Ordering Physician: Nikki Olsen Referring Physician: Nikki Olsen Performed By: Cici Ji, RDCS, RVT 02/19/24 1429 Date Shan Brody MD CC: C [employer] BOX TESTER-C Nikki Olsen Date Dictated: 02/19/24 1320 Date Transcribed: 02/19/24 142 Cream Tester: Signed Normal [facility] CBC W Auto Differential pane l (Bld)on 02-18-2024 Basophils (Bld) [#/Vol] 0.1 10*3/uL 0.0 - 0.2 10*3/uL [facility] Basophils/100 WBC (Bld) 0.5 % 0.0 - 2.0 % [facility] Eosinophils (Bld) [#/Vol] 0.4 10*3/uL 0.0 - 0.5 10*3/uL [facility] Eosinophils/100 WBC (Bld) 2.8 % 0.0 - 6.0 % [facility] Erythrocyte distribution width (RBC) [Ratio] 14.5 % 11.5 - 15.0 % [facility] Hematocrit (Bld) [Volume fraction] 38.9 % 35.0 - 47.0 % [facility] Hemoglobin (Bld) [Mass/Vol] 13.2 g/dL 11.7 - 16.0 g/dL [facility] Immature granulocytes (Bld) [#/Vol] 0.1 10*3/uL High NINF - 0.1 10*3/uL [facility] Immature granulocytes/100 WBC (Bld) 0.4 % 0.0 - 2.0 % [facility] Interpretation and review of laboratory results Abnormal [facility] Lymphocytes (Bld) [#/Vol] 4.9 10*3/uL High 1.0 - 4.3 10*3/uL [facility] Lymphocytes/100 WBC (Bld) 32.1 % 15.0 - 45.0 % [facility] MCH (RBC) [Entitic mass] 27.7 pg 26.0 - 34.0 pg [facility] MCHC (RBC) [Mass/Vol] 33.9 % 30.5 - 36.0 % [facility] MCV (RBC) [Entitic vol] 81.6 fL 77.0 - 99.0 fL [facility] Monocytes (Bld) [#/Vol] 0.5 10*3/uL 0.0 - 0.9 10*3/uL [facility] Monocytes/100 WBC (Bld) 3.4 % Low 5.0 - 13.0 % [facility] Neutrophils (Bld) [#/Vol] 9.2 10*3/uL High 1.8 - 7.5 10*3/uL [facility] Neutrophils/100 WBC (Bld) 60.8 % 38.0 - 82.0 % [facility] Nucleated RBC/100 WBC (Bld) [Ratio] 0.0 % [facility] Platelet mean volume (Bld) [Entitic vol] 9.1 fL 9.0 - 12.7 fL [facility] Comment on above: MPV is a calculated measurement using platelet volume ratio Platelets (Bld) [#/Vol] 341 10*3/uL 140 - 440 10*3/uL [facility] RBC (Bld) [#/Vol] 4.77 10*6/uL 3.80 - 5.2 0 10*6/uL [facility] WBC (Bld) [#/Vol] 15.1 10*3/uL High 3.6 - 10.7 10*3/uL [facility] CBC WITH AUTO DIFFERENTIALon 02-18-2024 Basophils (Bld) [#/Vol] 0.1 10*3/uL Normal 0.0-0.2 [facility] Comment on above: Performed By: #### L [id number] #### Sports Medicine Specialist: GENEVIEVE SHEPHERD ([phone]) CARLOS FARRIS R[facility]TM[facility] (SWRLAB) [address] [place] [address] [place] Basophils/100 WBC (Bld) 0.5 % Normal 0.0-2.0 [facility] Comment on above: Performed By: #### L [id number] #### Sports Medicine Specialist: GENEVIEVE SHEPHERD ([phone]) LISAA BRENTON [facility] ([facility]) [address] [place] [address] Eosinophils (Bld) [#/Vol] 0.4 10*3/uL Normal 0.0-0.5 [facility] Comment on above: Performed By: #### L [id number] #### Sports Medicine Specialist: GENEVIEVE SHEPHERD ([phone]) [facility] [address] [place] [address] Eosinophils/100 WBC (Bld) 2.8 % Normal 0.0-6.0 [facility] Comment on above: Performed By: #### L [id number] #### Sports Medicine Specialist: GENEVIEVE SHEPHERD ([phone]) [facility] ([facility]) [address] [place] [address] Erythrocyte distribution width (RBC) [Ratio] 14.5 % Normal 11.5-15.0 [facility] Comment on above: Performed By: #### L [id number] #### Sports Medicine Specialist: GENEVIEVE SHEPHERD ([phone]) CARLOS FARRIS [facility] (SWRL[facility]) [address] [place] [address] Hematocrit (Bld) [Volume fraction] 38.9 % Normal 35.0-47.0 [facility] Comment on above: Performed By: #### L [id number] #### Sports Medicine Specialist: GENEVIEVE SHEPHERD ([phone]) CARLOS FARRIS [facility] (SWRL[facility]) [address] [place] [address] Hemoglobin (Bld) [Mass/Vol] 13.2 g/dL Normal 11.7-16.0 [facility] Comment on above: Performed By: #### L [id number] #### Sports Medicine Specialist: GENEVIEVE SHEPHERD ([phone]) [facility] ([facility]) [address] [place] [address] IMMATURE GRANS % 0.4 % Normal 0.0-2.0 [facility] Comment on above: Performed By: #### L [id number] #### Sports Medicine Specialist: GENEVIEVE SHEPHERD ([phone]) [facility] [address] [place] [address] IMMATURE GRANS ABSOLUTE 0.1 10*3/uL High <0.1 [facility] Comment on above: Performed By: #### L [id number] #### Sports Medicine Specialist: GENEVIEVE SHEPHERD ([phone]) [facility] [address] [place] [address] [place] Lymphocytes (Bld) [#/Vol] 4.9 10*3/uL High 1.0-4.3 [facility] Comment on above: Performed By: #### L [id number] #### Sports Medicine Specialist: GENEVIEVE SHEPHERD ([phone]) [facility] ([facility]) [address] [place] [address] Lymphocytes/100 WBC (Bld) 32.1 % Normal 15.0-45.0 [facility] Comment on above: Performed By: #### L [id number] #### Sports Medicine Specialist: GENEVIEVE SHEPHERD ([phone]) [facility] ([facility]) [address] [place] [address] MCH (RBC) [Entitic mass] 27.7 pg Normal 26.0-34.0 [facility] Comment on above: Performed By: #### L [id number] #### Sports Medicine Specialist: GENEVIEVE SHEPHERD ([phone]) [facility] ([facility]) [address] [place] [address] MCHC 33.9 % Normal 30.5-36.0 [facility] Comment on above: Performed By: #### L [id number] #### Sports Medicine Specialist: GENEVIEVE SHEPHERD ([phone]) CARLOS FARRIS [facility] ([facility]RL[facility]) [address] [place] [address] MCV (RBC) [Entitic vol] 81.6 fL Normal 77.0-99.0 [facility] Comment on above: Performed By: #### L [id number] #### Sports Medicine Specialist: GENEVIEVE SHEPHERD ([phone]) [facility] ([facility]) [address] [place] [address] Monocytes (Bld) [#/Vol] 0.5 10*3/uL Normal 0.0-0.9 [facility] Comment on above: Performed By: #### L [id number] #### Sports Medicine Specialist: GENEVIEVE SHEPHERD ([phone]) [facility] ([facility]) [address] [place] [address] Monocytes/100 WBC (Bld) 3.4 % Low 5.0-13.0 [facility] Comment on above: Performed By: #### L [id number] #### Sports Medicine Specialist: GENEVIEVE SHEPHERD ([phone]) [facility] ([facility]) [address] [place] [address] NEUTROPHILS ABSOLUTE 9.2 10*3/uL High 1.8-7.5 [facility] Comment on above: Performed By: #### L [id number] #### Sports Medicine Specialist: GENEVIEVE SHEPHERD ([phone]) [facility] ([facility]) [address] [place] [address] Neutrophils/100 WBC (Bld) 60.8 % Normal 38.0-82.0 [facility] Comment on above: Performed By: #### L [id number] #### Sports Medicine Specialist: GENEVIEVE SHEPHERD ([phone]) [facility] ([facility]) [address] [place] [address] [place] NRBC 0.0 /100 WBCs Normal 0.0-2.0 [facility] Comment on above: Performed By: #### L [id number] #### Sports Medicine Specialist: GENEVIEVE SHEPHERD ([phone]) [facility] ([facility]) [address] [place] [address] Platelet mean volume (Bld) [Entitic vol] 9.1 fL Normal 9.0-12.7 [facility] Comment on above: Result Comment: MPV is a calculated measurement using platelet volume ratio Performed By: #### L [id number] #### Sports Medicine Specialist: GENEVIEVE SHEPHERD ([phone]) [facility]) [address] [place] [address] Platelets (Bld) [#/Vol] 341 10*3/uL Normal 140-440 [facility] Comment on above: Performed By: #### L [id number] #### Sports Medicine Specialist: GENEVIEVE SHEPHERD ([phone]) [facility] ([facility]) [address] [place] [address] RBC (Bld) [#/Vol] 4.77 10*6/uL Normal 3.80-5.20 [facility] Comment on above: Performed By: #### L [id number] #### Sports Medicine Specialist: GENEVIEVE SHEPHERD ([phone]) [facility]) [address] [place] [address] WBC (Bld) [#/Vol] 15.1 10*3/uL High 3.6-10.7 [facility] Comment on above: Performed By: #### L [id number] #### Sports Medicine Specialist: GENEVIEVE SHEPHERD ([phone]) [facility]) [address] [place] [address] COMPLETE URINALYSISon 2023 BILIRUBIN, TOTAL PRESENCE IN URINE Negative Normal Negative [facility] Comment on above: Performed By: #### L [id number] #### Sports Medicine Specialist: GENEVIEVE SHEPHERD ([phone]) [facility] [address] [place] [address] [place] Clarity (U) Clear Normal Clear [facility] Comment on above: Performed By: #### L [id number] #### Sports Medicine Specialist: GENEVIEVE SHEPHERD ([phone]) [facility] [address] [place] [address] [place] Color (U) Light Yellow Normal Lt. Yellow [facility] Comment on above: Performed By: #### L [id number] #### Sports Medicine Specialist: GENEVIEVE SHEPHERD ([phone]) [facility] [address] [place] [address] [place] GLUCOSE (MG/DL) IN URINE Normal Normal Normal (<70) [facility] Comment on above: Performed By: #### L [id number] #### Sports Medicine Specialist: GENEVIEVE SHEPHERD ([phone]) [facility] [address] [place] [address] [place] HEMOGLOBIN PRESENCE IN URINE Negative Normal Negative [facility] Comment on above: Performed By: #### L [id number] #### Sports Medicine Specialist: GENEVIEVE SHEPHERD ([phone]) [facility] [address] [place] [address] [place] Ketones Ql (U) Negative Normal Negative [facility] Comment on above: Performed By: #### L [id number] #### Sports Medicine Specialist: GENEVIEVE SHEPHERD ([phone]) [facility] [address] [place] [address] [place] LEUKOCYTE ESTERASE PRESENCE IN URINE BY TEST STRIP Negative Normal Negative [facility] Comment on above: Performed By: #### L [id number] #### Sports Medicine Specialist: GENEVIEVE SHEPHERD ([phone]) [facility] [address] [place] [address] [place] NITRITE PRESENCE IN URINE Negative Normal Negative [facility] Comment on above: Performed By: #### L [id number] #### Sports Medicine Specialist: GENEVIEVE SHEPHERD ([phone]) [facility] [address] [place] [address] pH (U) 7.0 [pH] Normal 5.0-8.0 [facility] Comment on above: Performed By: #### L [id number] #### Sports Medicine Specialist: GENEVIEVE SHEPHERD ([phone]) [facility] [address] [place] [address] Protein (U) [Mass/Vol] Negative Normal Negative [facility] Comment on above: Performed By: #### L [id number] #### Sports Medicine Specialist: GENEVIEVE SHEPHERD ([phone]) [facility] [address] [place] [address] Specific gravity (U) [Rel density] 1.022 Normal 1.005-1.030 [facility] Comment on above: Performed By: #### L [id number] #### Sports Medicine Specialist: GENEVIEVE SHEPHERD ([phone]) [facility] [address] [place] [address] UROBILINOGEN (MG/DL) IN URINE 2 mg/dL Abnormal Normal (0-1) [facility] Comment on above: Performed By: #### L [id number] #### Sports Medicine Specialist: GENEVIEVE SHEPHERD ([phone]) [facility] [address] [place] [address] COMPREHENSIVE METABOLIC PANE Cristian 02-18-2024 Albumin [Mass/Vol] 4.4 g/dL Normal 3.5-5.0 [facility] Comment on above: Performed By: #### L AB17 #### Sports Medicine Specialist: GENEVIEVE SHEPHERD ([phone]) [facility] [address] [place] [address] ALP [Catalytic activity/Vol] 115 U/L Normal 38-126 [facility] Comment on above: Performed By: #### L AB17 #### Sports Medicine Specialist: GENEVIEVE SHEPHERD ([phone]) [facility] [address] ALT [Catalytic activity/Vol] 16 U/L Normal 0-34 [facility] Comment on above: Performed By: #### L AB17 #### Sports Medicine Specialist: GENEVIEVE SHEPHERD ([phone]) [facility] [address] Anion gap [Moles/Vol] 8 mmol/L Normal 3-[address] [facility] Comment on above: Performed By: #### L AB17 #### Sports Medicine Specialist: GENEVIEVE SHEPHERD ([phone]) [facility] [address] AST [Catalytic activity/Vol] 26 U/L Normal 15-46 [facility] Comment on above: Performed By: #### L AB17 #### Sports Medicine Specialist: GENEVIEVE SHEPHERD ([phone]) [facility] [address] Bilirubin [Mass/Vol] 0.6 mg/dL Normal 0.2-1.3 [facility] Comment on above: Performed By: #### L AB17 #### Sports Medicine Specialist: GENEVIEVE SHEPHERD ([phone]) [facility] [address] Calcium [Mass/Vol] 9.3 mg/dL Normal 8.4-10.4 [facility] Comment on above: Performed By: #### L AB17 #### Sports Medicine Specialist: GENEVIEVE SHEPHERD ([phone]) [facility] [address] Chloride [Moles/Vol] 105 mmol/L Normal 98-107 [facility] Comment on above: Performed By: #### L AB17 #### Sports Medicine Specialist: GENEVIEVE SHEPHERD ([phone]) [facility] [address] [place] [address] [place] CO2 [Moles/Vol] 23 mmol/L Normal 22-30 [facility] Comment on above: Performed By: #### L AB17 #### Sports Medicine Specialist: GENEVIEVE SHEPHERD ([phone]) [facility] [address] [place] [address] [place] Creatinine [Mass/Vol] 0.56 mg/dL Normal 0.52-1.[address] [facility] Comment on above: Performed By: #### L AB17 #### Sports Medicine Specialist: GENEVIEVE SHEPHERD ([phone]) [facility] [address] [place] [address] [place] GLOMERULAR FILTRATION RATE ML/MIN/1.73 SQ M.PREDICTED >90.0 Normal >60.0 [facility] Comment on above: Result Comment: Calc ulation based on the Chronic Kidney Disease Epidemiology Collaboration (CKD-EPI) equation refit without adjustment for race Performed By: #### L AB17 #### Sports Medicine Specialist: GENEVIEVE SHEPHERD ([phone]) [facility] [address] [place] [address] [place] Glucose [Mass/Vol] 116 mg/dL High 70-100 [facility] Comment on above: Performed By: #### L AB17 #### Sports Medicine Specialist: GENEVIEVE SHEPHERD ([phone]) [facility] [address] [place] [address] [place] Potassium [Moles/Vol] 3.6 mmol/L Normal 3.5-5.[address] [facility] Comment on above: Performed By: #### L AB17 #### Sports Medicine Specialist: GENEVIEVE SHEPHERD ([phone]) [facility] [address] [place] [address] [place] Protein [Mass/Vol] 7.6 g/dL Normal 6.3-8.2 [facility] Comment on above: Performed By: #### L AB17 #### Sports Medicine Specialist: GENEVIVEE SHEPHERD ([phone]) [facility] [address] [place] [address] Sodium [Moles/Vol] 137 mmol/L Normal 135-145 [facility] Comment on above: Performed By: #### L AB17 #### Sports Medicine Specialist: GENEVIEVE SHEPHERD ([phone]) [facility] [address] [place] [address] Urea nitrogen [Mass/Vol] 13 mg/dL Normal 7-17 [facility] Comment on above: Performed By: #### L AB17 #### Sports Medicine Specialist: GENEVIEVE SHEPHERD ([phone]) [facility] [address] [place] [address] CT ABDOMEN PELVIS W CONTRAST on 02-18-2024 CT ABDOMEN PELVIS W CONTRAST Patient Name: ALINA MALIK : 2005 Exam Date/Time: 02/18/2024 22:40 Procedure: CT ABDOMEN PELVIS W CONTRAST Ordering Provider: JOINER MICHAEL Reason For Exam: Abdominal pain, acute, nonlocalized CT ABDOMEN AND PELVIS CLINICAL INDICATION: Abdominal pain, acute, nonlocalized TECHNIQUE: CT scan of the abdomen and pelvis with IV contrast. Multiplanar reformations. Dose reduction was employed with automated exposure control. COMPARISON: None FINDINGS: Lung bases are clear. No free intraperitoneal gas seen. Liver shows no significant abnormality. Normal-appearing biliary tree status-post cholecystectomy. Spleen shows no significant abnormality. Adrenal glands show no significant abnormality. Kidneys show no significant abnormality. Pancreas shows no significant abnormality. Abdominal aorta is nonaneurysmal. The appendix appears normal. No bowel obstruction. IUD noted in the uterus. The ovaries appear grossly unremarkable. No ureteral calculus seen on either side. Constipation noted. IMPRESSION: 1. Constipation. Report Dictated on Electronically Signed By: Andrew Ott MD Electronically Signed Date/Time: 02/18/2024 10:[address] [facility] CT Abdomen and Pelvis W cont elaine Grimes 02-18-2024 1. Constipation. Report Dictated on Electronically Signed By: Andrew Ott MD Electronically Signed Date/Time: 02/18/2024 10:48 PM EDT [facility] Patient Name: ALINA MALIK : 2005 [facility]#: [id number] Exam Date/Time: 02/18/2024 22:40 Procedure: CT ABDOMEN PELVIS W CONTRAST Ordering Provider: JOINER MICHAEL Reason For Exam: Abdominal pain, acute, nonlocalized CT ABDOMEN AND PELVIS CLINICAL INDICATION: Abdominal pain, acute, nonlocalized TECHNIQUE: CT scan of the abdomen and pelvis with IV contrast. Multiplanar reformations. Dose reduction was employed with automated exposure control. COMPARISON: None FINDINGS: Lung bases are clear. No free intraperitoneal gas seen. Liver shows no significant abnormality. Normal-appearing biliary tree status-post cholecystectomy. Spleen shows no significant abnormality. Adrenal glands show no significant abnormality. Kidneys show no significant abnormality. Pancreas shows no significant abnormality. Abdominal aorta is nonaneurysmal. The appendix appears normal. No bowel obstruction. IUD noted in the uterus. The ovaries appear grossly unremarkable. No ureteral calculus seen on either side. Constipation noted. [facility] Andrew Ott MD - 02/18/2024 [facility] Name: [facility]INA MALIK : 2005 [id number] Exam Date/Time: 02/18/2024 22:40 Procedure: CT ABDOMEN PELVIS W CONTRAST Ordering Provider: JOINER MICHAEL Reason For Exam: Abdominal pain, acute, nonlocalized CT ABDOMEN AND PELVIS CLINICAL INDICATION: Abdominal pain, acute, nonlocalized TECHNIQUE: CT scan of the abdomen and pelvis with IV contrast. Multiplanar reformations. Dose reduction was employed with automated exposure control. COMPARISON: None FINDINGS: Lung bases are clear. No free intraperitoneal gas seen. Liver shows no significant abnormality. Normal-appearing biliary tree status-post cholecystectomy. Spleen shows no significant abnormality. Adrenal glands show no significant abnormality. Kidneys show no significant abnormality. Pancreas shows no significant abnormality. Abdominal aorta is nonaneurysmal. The appendix appears normal. No bowel obstruction. IUD noted in the uterus. The ovaries appear grossly unremarkable. No ureteral calculus seen on either side. Constipation noted. IMPRESSION: 1. Constipation. Report Dictated on Electronically Signed By: Andrew Ott MD Electronically Signed Date/Time: 02/18/2024 10:48 PM EDT [facility] Radiology Study observation (narrative) [facility] CT Abdomen and Pelvis W cont rast IVOrdered By: Andrew Ott on 02-18-[address] [facility] Work Phone: Comprehensive metabolic 1998 panelon 02-18-2024 Albumin [Mass/Vol] 4.4 g/dL 3.5 - 5.0 g/dL [facility] ALP [Catalytic activity/Vol] 115 U/L 38 - 126 U/L [facility] ALT [Catalytic activity/Vol] 16 U/L 0 - 34 U/L [facility] Anion gap [Moles/Vol] 8 mmol/L 3 - 13 mmol/L [facility] AST [Catalytic activity/Vol] 26 U/L 15 - 46 U/L [facility] Bilirubin [Mass/Vol] 0.6 mg/dL 0.2 - 1 .3 mg/dL [facility] Calcium [Mass/Vol] 9.3 mg/dL 8.4 - 10. 4 mg/dL [facility] Chloride [Moles/Vol] 105 mmol/L 98 - 10 7 mmol/L [facility] CO2 [Moles/Vol] 23 mmol/L 22 - 30 mmol/L [facility] Creatinine [Mass/Vol] 0.56 mg/dL 0.52 - 1.04 mg/dL [facility] GFR/1.73 sq M.predicted (S/P/Bld) [Vol rate/Area] - PINF [facility] Comment on above: Calculation based on the Chronic Kidney Disease Epidemiology Collaboration (CKD-EPI) equation refit without adjustment for race Glucose [Mass/Vol] 116 mg/dL High 70 - 100 mg/dL [facility] Interpretation and review of laboratory results Abnormal [facility] Potassium [Moles/Vol] 3.6 mmol/L 3.5 - 5.1 mmol/L [facility] Protein [Mass/Vol] 7.6 g/dL 6.3 - 8.2 g/dL [facility] Sodium [Moles/Vol] 137 mmol/L 135 - 145 mmol/L [facility] Urea nitrogen [Mass/Vol] 13 mg/dL 7 - 17 mg/dL [facility] ED Nursing Noteon 02-18-2024 ED Nursing Note Pt given discharge instructions and verbalized understanding. Pt is alert and oriented X4. IV removed intact. [facility]. No concerns at this time. Candelaria Gerard RN 02/18/24 2306 Normal [facility] ED Nursing Note Dr. Joiner at pt bedside. Candelaria Gerard RN 02/18/[address] [facility] ED Provider Noteon ED Provider Note EMERGENCY DEPARTMENT ENCOUNTER Pt Name: Alina Malik Birthdate 2005 Date of evaluation: 02/18/2024 ED Provider: Rigo Joiner MD CHIEF COMPLAINT Chief Complaint Patient presents with Abdominal Pain Pt states she was seen yesterday for same at [facility] and was told she had a uti and discharged. Pt states today the pain has worsened in her RLQ around to her back 6/10 & sharp/cramping in nature. HISTORY OF PRESENT ILLNESS I wore appropriate PPE for the entirety of this encounter. HPI Alina Malik is a 19 y.o. female who presents to the emergency department complaining of abdominal pain. This began yesterday. It became worse today. She describes it as in the very low right lower quadrant. There is been nausea but no emesis. She complains of frequency of urination also. She has an IUD in place. She does not recall her last menses. She is G2, P1 Ab1. She has had an ectopic . She has had a cholecystectomy. Nursing Notes were reviewed. Limitations to history: None Outside historians: None REVIEW OF SYSTEMS Review of Systems Constitutional: Negative for chills and fever. HENT: Negative for ear pain and sore throat. Eyes: Negative for pain and visual disturbance. Respiratory: Negative for cough and shortness of breath. Cardiovascular: Negative for chest pain and palpitations. Gastrointestinal: Positive for abdominal pain and nausea. Negative for vomiting. Genitourinary: Positive for dysuria and frequency. Negative for hematuria. Musculoskeletal: Negative for arthralgias and back pain. Skin: Negative for color change and rash. Neurological: Negative for seizures and syncope. All other systems reviewed and are negative. PAST MEDICAL HISTORY No past medical history on file. SURGICAL HISTORY No past surgical history on file. CURRENT MEDICATIONS Previous Medications No medications on file ALLERGIES Wellbutrin [bupropion] FAMILY HISTORY No family history on file. SOCIAL HISTORY Social History Socioeconomic History Marital status: Single Social Determinants of Health Received from [employer] Food Insecurities Received from [employer] Transportation Received from [employer] Interpersonal Safety Received from [employer] Housing/Utilities SCREENINGS PHYSICAL EXAM ED Triage Vitals [02/18/242106] Temp Heart Rate Resp BP 36.8 ?C (98.2 ?F) 99 20 131/77 SpO2 Temp Source Heart Rate Source Patient Position 97 % Oral Monitor -- BP Location FiO2 (%) Right arm -- Physical Exam Vitals and nursing note reviewed. Constitutional: General: She is not in acute distress. Appearance: She is well-developed. Comments: The patient is a young female, obese, found lying on a cart. She is alert and oriented. HENT: Head: Normocephalic and atraumatic. Eyes: Conjunctiva/sclera: Conjunctivae normal. Cardiovascular: Rate and Rhythm: Normal rate and regular rhythm. Heart sounds: No murmur heard. Pulmonary: Effort: Pulmonary effort is normal. No respiratory distress. Breath sounds: Normal breath sounds. Abdominal: Palpations: Abdomen is soft. Tenderness: There is abdominal tenderness in the right lower quadrant. Musculoskeletal: General: No swelling. Cervical back: Neck supple. Skin: General: Skin is warm and dry. Capillary Refill: Capillary refill takes less than 2 seconds. Neurological: Mental Status: She is alert. Psychiatric: Mood and Affect: Mood normal. DIAGNOSTIC RESULTS RADIOLOGY (Per Emergency Physician): Interpretation per the Radiologist below, if available at the time of this note: CT abdomen pelvis w contrast Final Result 1. Constipation. Report Dictated on Electronically Signed By: Andrew Ott MD Electronically Signed Date/Time: 02/18/2024 10:48 PM EDT EKG Interpretation: LABS: Labs Reviewed CBC WITH AUTO DIFFERENTIAL - Abnormal Result Value Auto WBC 15.1 (*) RBC 4.77 Hemoglobin 13.2 Hematocrit 38.9 MCV 81.6 MCH 27.7 MCHC 33.9 RDW 14.5 Platelets 341 MPV 9.1 nRBC 0.0 Neutrophils Relative 60.8 Lymphocytes Relative 32.1 Monocytes Relative 3.4 (*) Eosinophils Relative 2.8 Basophils Relative 0.5 Immature Grans % 0.4 Neutrophils Absolute 9.2 (*) Lymphocytes Absolute 4.9 (*) Monocytes Absolute 0.5 Eosinophils Absolute 0.4 Basophils Absolute 0.1 Immature Grans Absolute 0.1 (*) COMPREHENSIVE METABOLIC PANEL - Abnormal SODIUM 137 POTASSIUM 3.6 CHLORIDE 105 CARBON DIOXIDE 23 ANION GAP 8 UREA NITROGEN 13 CREATININE 0.56 GLUCOSE 116 (*) CALCIUM 9.3 AST (SGOT) 26 ALT 16 ALKALINE PHOSPHATASE 115 ALBUMIN 4.4 BILIRUBIN, TOTAL 0.6 TOTAL PROTEIN 7.6 eGFR >90.0 COMPLETE URINALYSIS - Abnormal Color, Urine Light Yellow Clarity, Urine Clear pH, Urine 7.0 Leukocytes, Urine Negative Nitrite, Urine Negative Protein, Urine Negative Glucose, Urine Normal Bilirubin, Urine Negativ (more content not included)... Normal [facility] HCG QUALITATIVE URINEon 01-23 Beta HCG ( test) Ql (U) Negative Normal Negative [facility] Comment on above: Result Comment: Plea se note: Very dilute urine specimens, as indicated by a low specific gravity, may not contain international representative levels of hCG. If is still suspected, a first morning urine specimen should be collected 48 hours later and tested. ORDER COMMENTS: is the most common reason for HCG in urine, although choriocarcinoma, hydatidiform mole, and certain nontrophoblastic malignancies also result in detectable urinary HCG levels. Sensitivity = 20mIU/mL. Performed By: #### L [id number] #### Sports Medicine Specialist: GENEVIEVE SHEPHERD ([phone]) [facility] [address] [place] [address] Laboratory - Chemistry and C hemistry - challengeOrdered By: Brandy Jerome on 02-18-2024 Beta HCG ( test) Ql Negative Negative [facility] Comment on above: Please note: Very di lute urine specimens, as indicated by a low specific gravity, may not contain international representative levels of hCG. If is still suspected, a first morning urine specimen should be collected 48 hours later and tested. Beta HCG ( test) Ql (U) is the most common reason for HCG in urine, although choriocarcinoma, hydatidiform mole, and certain nontrophoblastic malignancies also result in detectable urinary HCG levels. Sensitivity = 20mIU/mL. [facility] No Panel InformationOrdered By: Brandy Jerome on 02-18-2024 [facility] Urinalysis complete panel (U )on 02-18-2024 Bilirubin Ql (U) Negative Negative mg/dL [facility] Clarity (U) Clear Clear [facility] Color (U) Light Yellow Lt. Yellow [facility] Glucose Ql (U) Normal Normal (<70) mg/dL [facility] Hemoglobin Ql (U) Negative Negative mg/dL [facility] Interpretation and review of laboratory results Abnormal [facility] Ketones (U) [Mass/Vol] Negative Negative mg/dL [facility] Leukocyte esterase Test strip Ql (U) Negative Negative Giuliana/uL [facility] Nitrite Ql (U) Negative Negative [facility] th pH (U) 7.0 [pH] 5.0 - 8.0 pH [facility] Protein (U) [Mass/Vol] Negative Negative mg/dL [facility] Specific gravity (U) [Rel density] 1.022 1.005 - 1.030 [facility] Urobilinogen (U) [Mass/Vol] 2 mg/dL Abnormal Normal (0-1) [facility] Bacteria Ur Culton 4 Bacteria identified Cx Nom (U) ORGANISM ID: 1 <10,000 CFU/ml Mixed microbiota No further workup. Mixed microbiota can be due to???urine???contaminat ion with skin bacteria at time of collection or presence of a long-term urinary catheter. If a new culture is needed, please consider re-education of the patient on proper midstream collection technique or straight catheterization for???urine???collectio n. Normal [facility] Comment on above: Performed By: #### 6 30-4 #### [facility] CLIA [id number] [address] [place] [address] [place] CNOVon 02-17-2024 CNOV Office Visit (WSTR ) ALINA MALIK ([id number]) 1 F Date Time Provider Department 02/17/24 7:30 AM SKINNY MOORE [facility] During your visit today, we recorded the following information about you: Temperature Pulse Respiration Blood pressure 98.6 degrees 104/minute 16/minute 128/82 Weight 130.3 kg Skinny Moore APRN.OVERNIGHT BABYSITTER 02/17/2024 9:03 AM Signed Subjective HPI HPI Alina Malik is a 19 year old female who presents today for CC of urinary frequency, urgency. This started weeks ago. Has tried pushing fluids. Symptoms are worsened by nothing. Risk factors hx of uti. Denies std and concerns for . .Patient presents with: Urinary Frequency: urgency x couple weeks PAST MEDICAL HISTORY No date: Anxiety state No date: Depression No past surgical history on file. ALLERGIES Wellbutrin [Bupropion] MEDICATIONS topiramate (TOPAMAX) 25 mg tablet Take 25 mg by mouth daily at bedtime. FLUoxetine (PROZAC) 20 mg capsule Take 20 mg by mouth once daily. cyclobenzaprine (FLEXERIL) 10 mg tablet Take 1 tablet by mouth three times a day as needed for muscle spasm (or pain). (Patient not taking: Reported on 02/17/2024) propranolol HCl (PROPRANOLOL ORAL) Take 10 mg by mouth as needed. (Patient not taking: Reported on 08/26/2023) meloxicam (MOBIC) 15 mg tablet Take 1 tablet by mouth once daily. ARIPiprazole (ABILIFY) 5 mg tablet Take 5 mg by mouth once daily. 4 mg once daily traZODone (DESYREL) 100 mg tablet Take by mouth. (Patient not taking: Reported on 08/26/2023) FAMILY HISTORY Problem Relation Age of Onset Hypertension Mother COPD Mother Social History Tobacco Use Smoking status: Never Smokeless tobacco: Never Vaping Use Vaping status: Never Used Substance Use Topics Alcohol use: Never Drug use: Never Review of Systems Constitutional: Negative for chills, fever and weight loss. Respiratory: Negative for cough, shortness of breath and wheezing. Cardiovascular: Negative for chest pain and palpitations. Gastrointestinal: Negative for abdominal pain, blood in stool, constipation, diarrhea, heartburn, melena, nausea and vomiting. Genitourinary: Positive for dysuria, frequency and urgency. Negative for flank pain and hematuria. Objective Blood pressure 128/82, pulse 104, temperature 37 ?C (98.6 ?F), resp. rate 16, weight 130.3 kg (287 lb 4.2 oz), last menstrual period 12/06/2022, SpO2 99%. Physical Exam Constitutional: General: She is not in acute distress. Appearance: Normal appearance. She is not toxic-appearing. Cardiovascular: Rate and Rhythm: Normal rate and regular rhythm. Heart sounds: Normal heart sounds. Pulmonary: Effort: Pulmonary effort is normal. Breath sounds: Normal breath sounds. Abdominal: General: Bowel sounds are normal. Palpations: Abdomen is soft. Tenderness: There is no abdominal tenderness. Skin: General: Skin is warm and dry. ASSESSMENT/PLAN: 1. Urinary frequency - ICD9: 788.41, ICD10: R35.0 subacute - Send urine for culture No treatment today, treat per c/s, f/u with pcp or transportation maintenance specialist if negative. - Patient education for prevention given - UA DIP, URINE (POC) - URINE CULTURE Skinny Moore APRN.OVERNIGHT BABYSITTER Allergies As of Date: 02/17/2024 Noted Allergy Reaction WELLBUTRIN (BUPROPION) 06/14/2022 2 - Rash Date Reviewed: 02/17/2024 Reviewed by: Sue Ryder MA - Fully Assessed Reason for Visit: Urinary Frequency [1086] Cmt: urgency x couple weeks Primary Visit Diagnosis:Urinary frequency [R35.0] Order(s):UA DIP, URINE (POC) [7119678] Order #: [id number]. #:[id number] URINE CULTURE [[id number]] Order #: [id number]. #:[id number] Prescriptions as of 02/17/2024 - topiramate (TOPAMAX) 25 mg tablet Take 25 mg by mouth daily at bedtime. - FLUoxetine (PROZAC) 20 mg capsule Take 20 mg by mouth once daily. - cyclobenzaprine (FLEXERIL) 10 mg tablet Take 1 tablet by mouth three times a day as needed for muscle spasm (or pain). - propranolol HCl (PROPRANOLOL ORAL) Take 10 mg by mouth as needed. - meloxicam (MOBIC) 15 mg tablet Take 1 tablet by mouth once daily. - ARIPiprazole (ABILIFY) 5 mg tablet Take 5 mg by mouth once daily. 4 mg once daily - traZODone (DESYREL) 100 mg tablet Take by mouth. Problem List As Of Date: 02/17/2024 (None) Medications Discontinued During This Encounter Prescriptions - FLUoxetine (PROZAC) 20 mg capsule (Discontinued) Reported on 08/26/2023 Encounter Status:Closed by SKINNY MOORE on 02/17/24 Normal [facility] LABORATORYOrdered By: Chantale Malik on 02-17-2024 Appearance (U) Clear (02/17/24 9:23 AM) Normal Clear AO Auto Urine SS Bilirubin Ql (U) Negative (02/17/24 9:23 AM) Normal Negative AO Auto Urine SS Color (U) Yellow (02/17/24 9:23 AM) Normal AO Auto Urine SS Glucose Test strip (U) [Mass/Vol] Negative Normal Negative AO Auto Urine SS HCG ( test) Ql Negative (02/17/24 9:23 AM) Normal AO Manual Urine SS Hemoglobin Auto test strip (U) [Mass/Vol] Trace *ABN* (02/17/24 9:23 AM) Invalid Interpretation Code Negative AO Auto Urine SS Ketones Ql (U) Negative Normal Negative AO Auto Urine SS test (u) int Not detected Invalid Interpretation Code AO Manual Urine SS UA Leuk Est Negative (02/17/24 9:23 AM) Normal Negative AO Auto Urine SS UA Nitrite Negative (02/17/24 9:23 AM) Normal Negative AO Auto Urine SS UA pH 7.0 (02/17/24 9:23 AM) Normal 5.0 - 8.0 AO Auto Urine SS UA Protein Negative Normal Negative AO Auto Urine SS UA Spec Grav 1.010 *ABN* (02/17/24 9:23 AM) Invalid Interpretation Code 1.015-1.025 AO Auto Urine SS UA Specimen Type Void (02/17/24 9:23 AM) Normal AO Auto Urine SS UA Urobilinogen 0.2 E.U./dL Normal 0.2-1.0 AO Auto Urine SS PREGUon 02-17-2024 HCG ( test) Ql (U) Negative Normal [facility] ([place]) Comment on above: Performed By: #### U A, PREGU #### [place] [address] test (u) int Not detected Invalid Interpretation Code [facility] ([place] Comment on above: Performed By: #### U A, PREGU #### [place] [address] UAon 02-17-2024 Color (U) Yellow Normal [facility] ([place] Comment on above: Performed By: #### U A, PREGU #### [place] [address] Glucose (U) [Mass/Vol] Negative Normal Negative [facility] ([place] Comment on above: Performed By: #### U A, PREGU #### [place] [address] Ketones Ql (U) Negative Normal Negative [facility] ([place] Comment on above: Performed By: #### U A, PREGU #### [place] [address] UA Appear Clear Normal Clear [facility] ([place] Comment on above: Performed By: #### U A, PREGU #### [address] [address] UA Blood Trace Abnormal Negative [facility] ([place] Comment on above: Performed By: #### U A, PREGU #### [place] [address] UA Leuk Est Negative Normal Negative [facility] ([place] Comment on above: Performed By: #### U A, PREGU #### [place] [address] UA Nitrite Negative Normal Negative [facility] ([place] Comment on above: Performed By: #### U A, PREGU #### [address] [address] UA pH 7.0 Normal 5.0 - 8.0 [facility] ([place] Comment on above: Performed By: #### U A, PREGU #### [address] [address] UA Protein Negative Normal Negative [facility] ([place] Comment on above: Performed By: #### U A, PREGU #### [address] [address] UA Spec Grav 1.010 Abnormal 1.015-1.025 [facility] ([place] Comment on above: Performed By: #### U A, PREGU #### [address] [address] UA Specimen Type Void Normal [facility] ([place] Comment on above: Performed By: #### U A, PREGU #### [address] [address] UA Urobilinogen 0.2 E.U./dL Normal 0.2-1.0 [facility] ([place] Comment on above: Performed By: #### U A, PREGU #### [address] [address] Urobilinogen (U) [Mass/Vol] Negative Normal Negative [facility] ([place] Comment on above: Performed By: #### U A, PREGU #### [address] [address] UA DIP, URINE (POC)on 2023 BILIRUBIN UA (POCT) Negative Negative [facility] CLARITY UA (POCT) Cloudy [facility] COLOR UA (POCT) Yellow [facility] GLUCOSE UA (POCT) Negative Negative mg/dL [facility] Hemoglobin Ql (U) Negative Negative [facility] KETONE UA (POCT) Negative Negative mg/dL [facility] LEUKOCYTES UA (POCT) Negative Negative [facility] NITRITE UA (POCT) Negative [facility] PH UA (POCT) 6.0 4.5 - 8.0 [facility] Protein Ql (U) Negative Negative mg/dL [facility] SPECIFIC GRAVITY UA (POCT) 1.020 1.005 - 1.030 [facility] UROBILINOGEN UA (POCT) 1.0 Normal E.U./dL [facility] Location:[facility], [address] [place], [address] [facility] POINT OF CARE [facility] 12 Lead EKGon 01-23-2024 12 Lead EKG [facility] Cardiovascular Services [address] [place] [address] 12 Lead EKG 01/23/24 0812 MR#: [id number] Acct: [id number] Name: ALINA MALIK Rep #: [id number] : 2005 19 From: Corina Clay MD Attending Dr: Nikki Olsen, [facility], AIR BOX TESTER-C Status : REG CLI Ordering Dr: Nikki Olsen [employer]-C Date: 01/22 Location: N Sex: F C Admitted: Test Reason : FAST HR Blood Pressure : / mmHG Vent. Rate : 085 BPM Atrial Rate : 085 BPM P-R Int : 158 ms QRS Dur : 090 ms QT Int : 372 ms P-R-T Axes : 042 054 049 degrees QTc Int : 442 ms Normal sinus rhythm Normal ECG Confirmed by LOPEZ MACHADO, KATHY ([id number]), news videotape editor MERLIN FAYE ([id number]) on 01/24/2024 10:26:39 AM Referred By: Nikki Olsen Confirmed By:JEFFREY CLAY MD 01/24/24 1026 Date Corina Clay MD CC: [facility] [employer]OX [employer]-C Nikki Olsen Signed Normal [facility] 12 Lead EKGon 12-30-2023 12 Lead EKG [facility] Cardiovascular Services [address] [place] [address] 12 Lead EKG 12/30/23 0610 MR#: [id number] Acct: [id number] Name: ALINA MALIK Rep #: [id number] : 2005 18 From: Rigo Ulloa MD Attending Dr: Status: DEP ER Ordering Dr: Remy Sawyer DO Date: 12/30/23 Location: ED Sex: F C Admitted: Test Reason : TACHYCARDIA Blood Pressure : / mmHG Vent. Rate : 117 BPM Atrial Rate : 117 BPM P-R Int : 170 ms QRS Dur : 090 ms QT Int : 320 ms P-R-T Axes : 049 065 042 degrees QTc Int : 446 ms Sinus tachycardia Otherwise normal ECG Confirmed by Rigo Ulloa ([id number]), news videotape editor JESSICA SCOTT ([id number]) on 12/31/2023 12:51:05 PM Referred By: MOHINDER Confirmed By:Rigo Ulloa 12/31/23 1251 Date Rigo Ulloa MD CC: C [employer]OX TE[employer]-C Nikki Olsen; Remy Sawyer DO Signed Normal [facility] Basic Metabolic Profile (BMP )on 12-30-2023 BUN/CRE 10.4 RATIO Normal 10-20 [facility] Comment on above: Performed By: #### L 501.5200, L700.6800, L500.2500, L501.9520, L100.0100 #### [facility] [address] [place], [address] CA,Total 9.1 mg/dL Normal 8.5-10.1 [facility] Comment on above: Performed By: #### L 501.5200, L700.6800, L500.2500, L501.9520, L100.0100 #### [facility] [address] [place], [address] Chloride [Moles/Vol] 108 mmol/L High 98-107 [facility] Comment on above: Performed By: #### L 501.5200, L700.6800, L500.2500, L501.9520, L100.0100 #### [facility] [address] [place], [address] CO2 [Moles/Vol] 26.0 mmol/L Normal 21.0-32.0 [facility] Comment on above: Performed By: #### L 501.5200, L700.6800, L500.2500, L501.9520, L100.0100 #### [facility] [address] [place], [address] Creatinine [Mass/Vol] 0.87 mg/dL Normal 0.55-1.02 [facility] Comment on above: Result Comment: The validity of the calculated GFR GFRAA in patients over 70 years has not been determined. Clinical correlation is essential. Performed By: #### L 501.5200, L700.6800, L500.2500, L501.9520, L100.0100 #### [facility] [address] [place], [address] ECRCL 135.74 ml/min Normal [facility] Comment on above: Performed By: #### L 501.5200, L700.6800, L500.2500, L501.9520, L100.0100 #### [facility] [address] [place], [address] EST GFR - AA 106 mL/min Normal >60 [facility] Comment on above: Result Comment: Afri can Macedonian GFR Calc Performed By: #### L 501.5200, L700.6800, L500.2500, L501.9520, L100.0100 #### [facility] [address] [place], [address] GAP 6 Normal 5-15 [facility] Comment on above: Performed By: #### L 501.5200, L700.6800, L500.2500, L501.9520, L100.0100 #### [facility] [address] [place], [address] GFR/1.73 sq M.predicted among non-blacks MDRD (S/P/Bld) [Vol rate/Area] 88 mL/min/{1.73_m2} Normal >60 [facility] Comment on above: Result Comment: Non- GFR Calc Performed By: #### L 501.5200, L700.6800, L500.2500, L501.9520, L100.0100 #### [facility] [address] [place], [address] Glucose [Mass/Vol] 108 mg/dL High 74-106 [facility] Comment on above: Result Comment: Fast ing Glucose result from 100 to 125 mg/dL suggests IMPAIRED HOMEOSTASIS per A.D.A. criteria. Performed By: #### L 501.5200, L700.6800, L500.2500, L501.9520, L100.0100 #### [facility] [address] [place], [address] Potassium [Moles/Vol] 3.2 mmol/L Low 3.5-5.1 [facility] Comment on above: Performed By: #### L 501.5200, L700.6800, L500.2500, L501.9520, L100.0100 #### [facility] [address] [place], [address] Sodium [Moles/Vol] 140 mmol/L Normal 136-145 [facility] Comment on above: Performed By: #### L 501.5200, L700.6800, L500.2500, L501.9520, L100.0100 #### [facility] [address] [place], [address] Urea nitrogen [Mass/Vol] 9 mg/dL Normal 7-18 [facility] Comment on above: Performed By: #### L 501.5200, L700.6800, L500.2500, L501.9520, L100.0100 #### [facility] [address] [place], [address] CBC W/Diff, Automatedon 07-0 8-2023 Absolute Lymph 3.92 X10 3/uL Normal 0.83-4.51 [facility] Comment on above: Performed By: #### L 501.5200, L700.6800, L500.2500, L501.9520, L100.0100 #### [facility] [address] [place], [address] Absolute Neut 6.0 X10 3/uL Normal 2.0-7.7 [facility] Comment on above: Performed By: #### L 501.5200, L700.6800, L500.2500, L501.9520, L100.0100 #### [facility] [address] [place], [address] Basophils/100 WBC (Bld) 0.6 % Normal 0-1 [facility] Comment on above: Performed By: #### L 501.5200, L700.6800, L500.2500, L501.9520, L100.0100 #### [facility] [address] [place], [address] Eosinophils/100 WBC (Bld) 4.1 % Normal 0-5 [facility] Comment on above: Performed By: #### L 501.5200, L700.6800, L500.2500, L501.9520, L100.0100 #### [facility] [address] [place], [address] Erythrocyte distribution width (RBC) [Ratio] 14.2 % Normal 11.6-14.6 [facility] Comment on above: Performed By: #### L 501.5200, L700.6800, L500.2500, L501.9520, L100.0100 #### [facility] [address] [place], [address] Hematocrit (Bld) [Volume fraction] 38.6 % Normal 37-47 [facility] Comment on above: Performed By: #### L 501.5200, L700.6800, L500.2500, L501.9520, L100.0100 #### [facility] [address] [place], [address] Hemoglobin (Bld) [Mass/Vol] 12.9 g/dL Normal 12.0-15.0 [facility] Comment on above: Performed By: #### L 501.5200, L700.6800, L500.2500, L501.9520, L100.0100 #### [facility] [address] [place], [address] IG% 0.300 Normal 0.0-0.9 [facility] Comment on above: Result Comment: IG% - Immature Granulocytes (promyelocytes, myelocytes and metamyelocytes) > 1% indicates that a LEFT SHIFT is Present. Performed By: #### L 501.5200, L700.6800, L500.2500, L501.9520, L100.0100 #### [facility] [address] [place], [address] Lymphocytes/100 WBC (Bld) 36.1 % Normal 19-41 [facility] Comment on above: Performed By: #### L 501.5200, L700.6800, L500.2500, L501.9520, L100.0100 #### [facility] [address] [place], [address] MCH (RBC) [Entitic mass] 27.5 pg Normal 27.0-32.0 [facility] Comment on above: Performed By: #### L 501.5200, L700.6800, L500.2500, L501.9520, L100.0100 #### [facility] [address] [place], [address] MCHC (RBC) [Mass/Vol] 33.4 g/dL Normal 32-36 [facility] Comment on above: Performed By: #### L 501.5200, L700.6800, L500.2500, L501.9520, L100.0100 #### [facility] [address] [place], [address] MCV (RBC) [Entitic vol] 82.3 fL Normal 81-99 [facility] Comment on above: Performed By: #### L 501.5200, L700.6800, L500.2500, L501.9520, L100.0100 #### [facility] [address] [place], [address] Monocytes/100 WBC (Bld) 3.9 % Normal 0-10 [facility] Comment on above: Performed By: #### L 501.5200, L700.6800, L500.2500, L501.9520, L100.0100 #### [facility] [address] [place], [address] Neutrophils/100 WBC (Bld) 55.0 % Normal 47-70 [facility] Comment on above: Performed By: #### L 501.5200, L700.6800, L500.2500, L501.9520, L100.0100 #### [facility] [address] [place], [address] Nucleated RBC (Bld) [#/Vol] 0 10*3/uL Normal 0-5 [facility] Comment on above: Performed By: #### L 501.5200, L700.6800, L500.2500, L501.9520, L100.0100 #### [facility] [address] [place], [address] Platelet mean volume (Bld) [Entitic vol] 8.9 fL Normal 6.2-12.0 [facility] Comment on above: Performed By: #### L 501.5200, L700.6800, L500.2500, L501.9520, L100.0100 #### [facility] [address] [place], [address] Platelets (Bld) [#/Vol] 385 10*3/uL Normal 150-450 [facility] Comment on above: Performed By: #### L 501.5200, L700.6800, L500.2500, L501.9520, L100.0100 #### [facility] [address] [place], [address] RBC (Bld) [#/Vol] 4.69 10*6/uL Normal 4.2-5.4 [facility] Comment on above: Performed By: #### L 501.5200, L700.6800, L500.2500, L501.9520, L100.0100 #### [facility] [address] [place], [address] RDW SD 41.4 fl Normal 35.1-43.9 [facility] Comment on above: Performed By: #### L 501.5200, L700.6800, L500.2500, L501.9520, L100.0100 #### [facility] [address] [place], [address] WBC (Bld) [#/Vol] 10.9 10*3/uL Normal 4.4-11.0 [facility] Comment on above: Performed By: #### L 501.5200, L700.6800, L500.2500, L501.9520, L100.0100 #### [facility] [address] [place], [address] CTA Chest W/WO Contraston CTA Chest W/WO Contrast [facility] Imaging Services [address] [place] [address] CTA Chest W/WO Contrast MR#: [id number] Acct: [id number] Name: ALINA MALIK Rep #: [id number] : 2005 F 18 From: Demetris tian MD PCP: Nikki Olsen Maverick, AIR BOX TESTER-C Status: REG ER Study: CTA Chest W/WO Contrast Date of Exam: 12/30/23 Exam# [id number] Ordering Dr: [place] [id number] STUDY: CTA CHEST REASON FOR EXAM: Female, 18 years old. Elevated D-dimer. History of tachycardia. Asthma. RADIATION DOSAGE (If Supplied By Facility): CTDIvol = ( 13.85 ) mGy, DLP = ( 491.17 ) mGycm TECHNIQUE: The examination was performed with the intravenous administration of IV 100mL Isovue-370. Post-processing of the angiographic images was performed, with multiplanar reformation and 3D reconstruction. Individualized dose optimization techniques were used for this CT. COMPARISON: None. FINDINGS: Normal enhancement of the main pulmonary artery and right and left pulmonary arteries. Normal enhancement of the bilateral peripheral pulmonary arteries. There is no demonstrated pulmonary embolism. Normal thoracic aorta and visualized great vessels. There is no demonstrated aortic dissection. Normal heart and pericardium. Normal mediastinum. Normal hilar regions. Normal visualized trachea and bronchi. The lungs are well expanded. Normal pulmonary parenchyma. Normal pleura. Normal chest wall structures. Normal osseous structures. The patient is status post cholecystectomy. CT/CTA Chest W/WO Contrast IMPRESSION: Normal CTA chest examination, without a demonstrated pulmonary embolism or arterial dissection. Electronically Signed: Demetris Riojas MD at 8:47 EDT Reading Location ID and State: [facility] / [place] , Service support , CC: Maverick Olsen; Dr. Erik Leal MD Cream Tester: Signed Normal [facility] D-Dimer Quantitative (DVT/PE )on 12-30-2023 D-DIMER QUANT 0.68 FEU/ug/m Invalid Interpretation Code 0.27-0.49 [facility] Comment on above: Result Comment: D-Di emani ELEVATED (>0.49): Additional studies and clinical assessments are indicated to conclude diagnosis of: Deep Vein Thrombosis (DVT) or Pulmonary Embolism (PE) CRITICAL VALUE VERIFIED. CALLED TO BRIAN RAO (ER) 12/30/23 0733 Aston Sim. RESULTS READ BACK BY SAME. Performed By: #### L 501.5200, L500.3400, L500.2500, L100.0100, L501.2450, L700.6800 #### [facility] [address] [place], [address] Emergency Department Summary on 12-30-2023 Emergency Department Summary [facility] Medical Records Department [address] [place] [address] Emergency Department Summary 12/30/23 MR#: [id number] Acct: [id number] Name: ALINA MALIK Rep #: [id number] : 2005 18 From: Remy Sawyer DO PCP: JACQUELIN Flores, [employer] BOX TESTER-C Status:REG ER Location: ED ADDENDUM by Dr. Erik Leal MD on 12/30/23 at 0857 Patient was endorsed to me by Dr. Remy Sawyer to check a CTA on this patient that had elevated D- dimer and sinus tachycardia. I reviewed the radiology report of the CTA which shows no evidence of dissection, no pulmonary embolism. Upon repeat examination at approximately 8:55 AM, her heart rate is 94 on the monitor. She feels well. I feel she can be discharged to follow-up with her primary care provider and/your cardiology. Return instructions to the emergency department were reviewed. Disposition is discharged home in stable condition. 12/30/23 0857 Cosigner Signature (if applicable): cc: [facility] AIR BOX TESTER-Maverick Olsen * Signed HPI History of Present Illness Chief Complaint: Palpitations Informant: patient and spouse/S.O. Narrative Narrative: Patient is a 18-year-old female with past medical history of anxiety depression as well as palpitations. She states that this morning she folic her heart was racing. She states there is no history of true cardiac dysrhythmia such as A-fib a flutter or SVT but secondary to the abnormal sensation in her chest she presents for evaluation. Patient denies any recent travel surgery or history of DVT/PE. She does states she uses caffeine daily but she has not had any more than she normally takes and she denies missing any of her medications to suggest withdrawal. She also denies any illicit drug use. PFSH PFSH Medical History EP (ectopic ) Palpitations Wears glasses Alcohol use Marijuana use Restless legs Migraine headache Non-smoker Asthma Shortness of breath on exertion Leg cramps History of pain when walking Bulimia nervosa, purging type Generalized anxiety disorder Borderline personality disorder Major depressive disorder, recurrent severe without psychotic features Visit for suture removal Home Medications ???Medication ???Instructions ???Recorded ???Last Taken ???Type fluoxetine 20 mg capsule 20 mg PO DAILY 12/30/23 Unknown History potassium chloride 10 mEq 10 meq PO DAILY 7 days #7 caps 12/30/23 Unknown Rx capsule,extended release Allergy/AdvReac Type Severity Reaction Status Date / Time bupropion (From Wellbutrin) Allergy Rash Verified 08/21/23 04:00 Family History Grandmother Breast cancer Cancer skin Mother Hypertension Seizures Surgical History Hx of cholecystectomy Social History household members: none Smoking Status: Never smoker alcohol intake: current details: occasionally substance use type: marijuana caffeine: Yes additional social history: Boyfriend-Vishnu ESQUIVEL ROS ED Constitutional Constitutional ED: Denies chills or fever(s) Eyes Eyes: Denies blurry vision or change in vision ENT ENT ED: Denies sore throat Cardiovascular Cardiovascular: Reports palpitations and racing heartbeat; Denies chest pain Respiratory/Chest Respiratory/Chest: Denies cough or dyspnea Gastrointestinal Gastrointestinal: Denies abdominal pain, diarrhea, nausea or vomiting Genitourinary Genitourinary ED: Denies dysuria Musculoskeletal Musculoskeletal: Denies back pain or myalgias Integumentary Denies rash Neurologic Neurologic: Denies headache(s) Hematologic/Lymphatic Hematologic/Lymphatic: Denies easy bleeding or easy bruising EXAM Physical Exam Const Vital Signs: 12/30/23 06:06 12/30/23 06:09 Temperature 98.2 F Temperature Source Oral Pulse Rate 120 H Respiratory Rate 22 H Respiratory Effort Normal Non-Labored Blood Pressure 160/82 H Blood Pressure Mean 108 Pulse Ox 99 Oxygen Delivery Method Room Air Positive well nourished, well developed and obese General Appearance ED: well developed; Negative for pallor Nutritional Appearance: obese HEENT Reports moist mucous membranes HEENT Narrative: No signs of infection noted in the posterior pharynx Eyes PERRL and EOMs intact bilaterally General Eye ED: Negative for pale conjunctiva or scleral icterus Neck supple and no JVD Chest Wall palpation of chest normal Resp normal respiratory effort and clear to auscultation bilaterally Cardio regular rhythm Rate: tachycardic and other Other Details: Tachycardic rate with regular rhythm Radial and carotid pulses are equal (more content not included)... Normal [facility] Magnesiumon 12-30-2023 Magnesium [Mass/Vol] 2.1 mg/dL Normal 1.6-2.6 [facility] Comment on above: Performed By: #### L 501.5200, L700.6800, L500.2500, L501.9520, L100.0100 #### [facility] [address] [place], [place], [address] ,Serum,hCG Quali.on 12-30-2023 HCG, SERUM QUAL Negative Normal [facility] Comment on above: Performed By: #### L 501.5200, L700.6800, L500.2500, L501.9520, L100.0100 #### [facility] [address] [place], [address] Thyroid Stim Hormone (TSH)on 12-30-2023 TSH 2.48 uIU/mL Normal 0.358-3.74 [facility] Comment on above: Performed By: #### L 501.5200, L500.3400, L500.2500, L100.0100, L501.2450, L700.6800 #### [facility] [address] [place], [place], [id number] Basic metabolic 2000 panelon 08-31-2023 Anion gap [Moles/Vol] 13 mmol/L Normal 9-18 [facility] Comment on above: Order Comment: Speci men Type: BLOOD SPECIMEN Ordering Facility: [facility] Address: [address] [place], [place] [address] Performed By: #### 2 4321-2 #### [employer] [facility] [place] [facility] CLIA [id number] [address] [place] [address] [place] Calcium [Mass/Vol] 9.2 mg/dL Normal 8.5-10.2 [facility] Comment on above: Order Comment: Speci men Type: BLOOD SPECIMEN Ordering Facility: [facility] Address: [address] [place] [address] Performed By: #### 2 4321-2 #### [employer] [facility] [place] [facility] CLIA [id number] [address] [place] [address] [place] Chloride [Moles/Vol] 105 mmol/L Normal 97-105 [facility] Comment on above: Order Comment: Speci men Type: BLOOD SPECIMEN Ordering Facility: [facility] Address: [address] [place] [address] Performed By: #### 2 4321-2 #### [facility] [place] [facility] CLIA [id number] [address] [place] [address] [place] CO2 [Moles/Vol] 23 mmol/L Normal 22-30 [facility] Comment on above: Order Comment: Speci men Type: BLOOD SPECIMEN Ordering Facility: [facility] Address: [address] [place] [address] Performed By: #### 2 4321-2 #### [facility] CLIA [id number] [address] [place] [address] [place] Creatinine [Mass/Vol] 0.70 mg/dL Normal 0.58-0.96 [facility] Comment on above: Order Comment: Oh sullivan Type: BLOOD SPECIMEN Ordering Facility: [facility] Address: [address] [place] [address] Performed By: #### 2 4321-2 #### [facility] CLIA [id number] [address] [place] [address] [facility] [place] Creatinine and Glomerular filtration rate.predicted panel (S/P/Bld) 127 mL/min/1.73m??? Normal >=60 [facility] Comment on above: Order Comment: Oh sullivan Type: BLOOD SPECIMEN Ordering Facility: [facility] Address: [address] [place] [address] Result Comment: Jayla mated Glomerular Filtration Rate (eGFR) is calculated using the 2020 CKD-EPI creatinine equation. This equation utilizes serum creatinine, sex, and age as parameters. The creatinine assay has traceable calibration to isotope dilution-mass spectrometry. Refer to KDIGO guidelines for clinical interpretation. In patients with unstable renal function, e.g. those with acute kidney injury, the eGFR may not accurately reflect actual GFR. Performed By: #### 2 4321-2 #### [facility] CLIA [id number] [address] [place] [address] [place] Glucose [Mass/Vol] 114 mg/dL High 74-99 [facility] Comment on above: Order Comment: Oh sullivan Type: BLOOD SPECIMEN Ordering Facility: [facility] Address: [address] [place] [address] Result Comment: The [place] Diabetes Association (ADA) provides guidance for cutoff values for fasting glucose and random glucose. The ADA defines fasting as no caloric intake for at least 8 hours. Fasting plasma glucose results between 100 to 125 mg/dL indicate increased risk for diabetes (prediabetes). Fasting plasma glucose results greater than or equal to 126 mg/dL meet the criteria for diagnosis of diabetes. In the absence of unequivocal hyperglycemia, results should be confirmed by repeat testing. In a patient with classic symptoms of hyperglycemia or hyperglycemic crisis, random plasma glucose results greater than or equal to 200 mg/dL meet the criteria for diagnosis of diabetes. Reference: Standards of Medical Care in Diabetes 2016, [place] [employer] Association. Diabetes Care. 2016.39(Suppl 1). Performed By: #### 2 4321-2 #### [facility] [place] [facility] CLIA [id number] [address] [place] [address] [place] Potassium [Moles/Vol] 3.5 mmol/L Low 3.7-5.1 [facility] Comment on above: Order Comment: Danielai laurie Type: BLOOD SPECIMEN Ordering Facility: [facility] Address: [address] [place] [address] Performed By: #### 2 4321-2 #### [facility] [place] [facility] CLIA [id number] [address] [place] [address] [place] Sodium [Moles/Vol] 141 mmol/L Normal 136-144 [facility] Comment on above: Order Comment: Oh sullivan Type: BLOOD SPECIMEN Ordering Facility: [facility] Address: [address] [place] [address] Performed By: #### 2 4321-2 #### [facility] [place] [facility] CLIA [id number] [address] [place] [address] [place] Urea nitrogen [Mass/Vol] 11 mg/dL Normal 7-21 [facility] Comment on above: Order Comment: Oh sullivan Type: BLOOD SPECIMEN Ordering Facility: [facility] Address: [address] [place] [address] Performed By: #### 2 4321-2 #### [facility] [place] [facility] CLIA [id number] [address] [place] [address] [place] CBC W Auto Differential pane l (Bld)on 08-31-2023 Basophils (Bld) [#/Vol] 10*3/uL Normal <0.11 [facility] Comment on above: Order Comment: Danielai men Type: BLOOD SPECIMENOrdering Facility: [facility] Address: [address] [place] [address] Performed By: #### 5 7021-8 ####[facility] [place] [facility] [id number] [facility] [place] [address] [place] Basophils/100 WBC (Bld) 0.1 % Normal [facility] Comment on above: Order Comment: Speci men Type: BLOOD SPECIMENOrdering Facility: [facility] Address: [address] [place] [address] Performed By: #### 5 7021-8 ####[facility] [place] [facility] [id number] [place] [address] [facility] Differential cell count method Nom (Bld) Auto Normal [facility] Comment on above: Order Comment: Speci men Type: BLOOD SPECIMENOrdering Facility: [facility] Address: [address] [place] [address] Performed By: #### 5 7021-8 ####[facility] [place] [facility] [id number] [place] [address] [facility] [place] Eosinophils (Bld) [#/Vol] 0.03 10*3/uL Normal <0.46 [facility] Comment on above: Order Comment: Speci men Type: BLOOD SPECIMENOrdering Facility: [facility] Address: [address] [place] [address] Performed By: #### 5 7021-8 ####[facility] [place] [facility] [id number] [place] [address] [facility] Eosinophils/100 WBC (Bld) 0.2 % Normal [facility] Comment on above: Order Comment: Speci men Type: BLOOD SPECIMENOrdering Facility: [facility] Address: [address] [place] [address] Performed By: #### 5 7021-8 ####[facility] [place] [facility] [id number] [place] [address] [facility] Erythrocyte distribution width (RBC) [Ratio] 14.2 % Normal 11.5-15.0 [facility] Comment on above: Order Comment: Speci men Type: BLOOD SPECIMENOrdering Facility: [facility] Address: [address] [place] [address] Performed By: #### 5 7021-8 ####[facility] [place] [facility] [id number] [place] [address] [place] Hematocrit (Bld) [Volume fraction] 38.3 % Normal 36.0-46.0 [facility] Comment on above: Order Comment: Speci men Type: BLOOD SPECIMENOrdering Facility: [facility] Address: [address] [place] [address] Performed By: #### 5 7021-8 ####[facility] [place] [facility] [id number] [facility] [place] [address] [facility] Hemoglobin (Bld) [Mass/Vol] 12.7 g/dL Normal 11.5-15.5 [facility] Comment on above: Order Comment: Speci men Type: BLOOD SPECIMENOrdering Facility: [facility] Address: [address] [place] [address] Performed By: #### 5 7021-8 ####[facility] [place] [facility] [id number] [place] [address] [place] Immature granulocytes (Bld) [#/Vol] 0.06 10*3/uL Normal <0.10 [facility] Comment on above: Order Comment: Speci men Type: BLOOD SPECIMENOrdering Facility: [facility] Address: [address] [place] [address] Performed By: #### 5 7021-8 ####[facility] [place] [facility] [id number] [place] [address] [place] Immature granulocytes/100 WBC (Bld) 0.3 % Normal [facility] Comment on above: Order Comment: Speci men Type: BLOOD SPECIMENOrdering Facility: [facility] Address: [address] [place] [address] Performed By: #### 5 7021-8 ####[facility] [place] [facility] [id number] [facility] [place] [address] [place] Lymphocytes (Bld) [#/Vol] 4.28 10*3/uL High 1.00-4.00 [facility] Comment on above: Order Comment: Speci men Type: BLOOD SPECIMENOrdering Facility: [facility] Address: [address] [place] [address] Performed By: #### 5 7021-8 ####[facility] [id number] [place] [address] [facility] Lymphocytes/100 WBC (Bld) 22.8 % Normal [facility] Comment on above: Order Comment: Speci men Type: BLOOD SPECIMENOrdering Facility: [facility] Address: [address] [place] [address] Performed By: #### 5 7021-8 ####[facility] [id number] [place] [address] [place] MCH (RBC) [Entitic mass] 27.6 pg Normal 26.0-34.0 [facility] Comment on above: Order Comment: Speci men Type: BLOOD SPECIMENOrdering Facility: [facility] Address: [address] [place] [address] Performed By: #### 5 7021-8 ####[facility] [id number] [place] [address] [place] MCHC (RBC) [Mass/Vol] 33.2 g/dL Normal 30.5-36.0 [facility] Comment on above: Order Comment: Speci men Type: BLOOD SPECIMENOrdering Facility: [facility] Address: [address] [place] [address] Performed By: #### 5 7021-8 ####[facility] [place] [facility]CLIA [id number] [place] [address] [place] MCV (RBC) [Entitic vol] 83.3 fL Normal 80.0-100.0 [facility] Comment on above: Order Comment: Speci men Type: BLOOD SPECIMENOrdering Facility: [facility] Address: [address] [place] [address] Performed By: #### 5 7021-8 ####[facility] [place] [facility]CLIA [id number] [place] [address] [place] Monocytes (Bld) [#/Vol] 0.58 10*3/uL Normal <0.87 [facility] Comment on above: Order Comment: Speci men Type: BLOOD SPECIMENOrdering Facility: [facility] Address: [address] [place] [address] Performed By: #### 5 7021-8 ####[facility] [place] [facility] [id number] [place] [address] [place] Monocytes/100 WBC (Bld) 3.1 % Normal [facility] Comment on above: Order Comment: Speci men Type: BLOOD SPECIMENOrdering Facility: [facility] Address: [address] [place] [address] Performed By: #### 5 7021-8 ####[facility] [place] [facility]CLIA [id number] [place] [address] [place] Neutrophils (Bld) [#/Vol] 13.83 10*3/uL High 1.45-7.50 [facility] Comment on above: Order Comment: Speci men Type: BLOOD SPECIMENOrdering Facility: [facility] Address: [address] [place] [address] Performed By: #### 5 7021-8 ####[facility] [place] [facility] [id number] [facility] [place] [address] [place] Neutrophils/100 WBC (Bld) 73.5 % Normal [facility] Comment on above: Order Comment: Speci men Type: BLOOD SPECIMENOrdering Facility: [facility] Address: [address] [place] [address] Performed By: #### 5 7021-8 ####[facility] [place] [facility]IA [id number] [place] [address] [place] Nucleated RBC (Bld) [#/Vol] Normal [facility] Comment on above: Order Comment: Speci men Type: BLOOD SPECIMENOrdering Facility: [facility] Address: [address] [place] [address] Performed By: #### 5 7021-8 ####[facility] [place] [facility]IA [id number] [place] [address] [place] Nucleated RBC/100 WBC (Bld) [Ratio] Normal [facility] Comment on above: Order Comment: Speci men Type: BLOOD SPECIMENOrdering Facility: [facility] Address: [address] [place] [address] Performed By: #### 5 7021-8 ####[facility] [place] [facility]CLIA [id number] [place] [address] [place] Platelet mean volume (Bld) [Entitic vol] 8.8 fL Low 9.0-12.7 [facility] Comment on above: Order Comment: Speci men Type: BLOOD SPECIMENOrdering Facility: [facility] Address: [address] [place] [address] Performed By: #### 5 7021-8 ####[facility] [place] [facility] [id number] [facility] [place] [address] [place] Platelets (Bld) [#/Vol] 397 10*3/uL Normal 150-400 [facility] Comment on above: Order Comment: Speci men Type: BLOOD SPECIMENOrdering Facility: [facility] Address: [address] [place] [address] Performed By: #### 5 7021-8 ####[facility] [place] [facility]CLIA [id number] [place] [address] [place] RBC (Bld) [#/Vol] 4.60 10*6/uL Normal 3.90-5.20 [facility] Comment on above: Order Comment: Speci men Type: BLOOD SPECIMENOrdering Facility: [facility] Address: [address] [place] [address] Performed By: #### 5 7021-8 ####[facility] [place] LABCLIA [id number] [place] [address] [place] WBC (Bld) [#/Vol] 18.80 10*3/uL High 3.70-11.00 [facility] Comment on above: Order Comment: [place] sullivan Type: BLOOD SPECIMENOrdering Facility: [facility] Address: [address] [place] [address] Performed By: #### 5 7021-8 ####[facility] [place] LABCLIA [id number] [place] [address] [facility] Carboxyhemoglobin (BldCoV) [ Mass fraction]on 08-31-2023 Carboxyhemoglobin (BldV) [Mass fraction] 1.6 % Normal 0.0-2.0 [facility] Comment on above: Order Comment: Oh sullivan Type: BLOOD SPECIMEN Order[facility] Address: [address] [place] [address] Result Comment: Carb oxyhemoglobin Reference Range for Smokers: 2.0-8.0% Performed By: #### 6 3524-3 #### [facility] [place] [facility] CLIA [id number] [address] [place] [address] [facility] ED NOTEon 08-31-2023 ED NOTE HNO ID: [id number] Author: CHERYL PÉREZ RN Service: ? Author Type: Registered Nurse Type: ED Notes Filed: 08/31/2023 09:56 Note Text: Patient Call Back Information How are you doing ? no change Did we appropriately manage your pain? Yes Did you understand your discharge instructions? Yes Did you get your prescriptions filled? No Were you able to make a follow-up appointment with your physician? No Were you comfortable during your stay here? Yes Did a member of the ER nursing team round on you during your visit? Yes You will receive a patient satisfaction survey in the mail in the nest 2 weeks, please take the time to fill out the survey as your input from your ER visit is very important to us. Yes Can we do anything else to help you? No Normal [facility] ED NOTE HNO ID: [id number] Author: CARINA GARCIA RN Service: Emergency Medicine Author Type: Registered Nurse Type: ED Notes Filed: 08/31/2023 00:22 Note Text: Patient discharge instructions given to patient. Patient educated on discharge instructions and prescriptions. Patient denied having questions at this time regarding discharge instructions. Patient discharged home at this time. [facility] ED NOTE HNO ID: [id number] Author: CARINA GARCIA RN Service: Emergency Medicine Author Type: Registered Nurse Type: ED Notes Filed: 08/31/2023 00:07 Note Text: Patient informed about the name of the medication(s), what the medication(s) is(are) for, and what to expect with/from med administration. Patient given opportunity to ask questions. Medication(s) include: Toradol [facility] ED NOTE HNO ID: [id number] Author: CARINA GARCIA RN Service: Emergency Medicine Author Type: Registered Nurse Type: ED Notes Filed: 08/30/2023 23:10 Note Text: Change of shift report received from Jessica Frazier RN. I assumed patient care at this time. [facility] ED PROV NOTEon 08-31-2023 ED PROV NOTE HNO ID: [id number] Author: ANDREW DELGADILLO MD Service: Emergency Medicine Author Type: Physician Type: ED Provider Notes Filed: 08/31/2023 00:12 Note Text: ED Provider Note Patient Name: lAina Malik : 2005 SERVICE DATE: 08/30/23 History Patient presents with: Headache Neck Pain Alina Malik is a 18 year old female with history of multiple chronic medical problems who presents with Headache and Neck Pain. Patient took prescription medication prior to arrival. - Symptoms began 1 days prior to arrival. - Severity: mild - Timing: constant - Quality: Headache and feeling weird - Headache and Neck Pain is exacerbated by nothing. - Headache and Neck Pain is not exacerbated by movement. - Symptoms are associated with feels fevered and chilled. No fever though at home - Symptoms are not associated with nausea and vomiting. - Improved by nothing. - Not improved by OTC medications Seen yesterday for headache had CT imaging and medications including Decadron and Reglan. She does take oral Reglan at home as well. She says she has felt flushed and weird today. Not sure if she has taken Decadron in the past. No specific exposure history she denies any traumatic injuries.. She has been having headache problems for about 2 weeks was seen at [facility] given migraine cocktail with relief headache tends to wax and wane. I stated last night she did have CT imaging did not show anything acute. PAST MEDICAL HISTORY Diagnosis Date Anxiety state Depression History reviewed. No pertinent surgical history. FAMILY HISTORY Problem Relation Age of Onset Hypertension Mother COPD Mother Social History Tobacco Use Smoking status: Never Smokeless tobacco: Never Vaping Use Vaping Use: Never used Substance and Sexual Activity Alcohol use: Never Drug use: Never Sexual activity: Not on file ALLERGIES Allergen Reactions Wellbutrin [Bupropi* Rash Review of Systems Constitutional: Positive for fatigue. Negative for chills and fever. HENT: Negative for congestion and sore throat. Respiratory: Negative for cough and shortness of breath. Gastrointestinal: Negative for abdominal pain, nausea and vomiting. Musculoskeletal: Negative for back pain and neck stiffness. Allergic/Immunologic: Negative for environmental allergies, food allergies and immunocompromised state. Neurological: Positive for headaches. Negative for syncope and light-headedness. Psychiatric/Behavioral: Negative for agitation and confusion. The patient is nervous/anxious. Physical Exam Vitals BP Pulse Temp Temp src Resp SpO2 Weight Height 08/30/23 2152 08/30/23 2152 08/30/23 215 -- 08/30/23 2152 08/30/23 2152 08/30/23 2151 -- 155/91 (!) 127 37.7 ?C (99.8 ?F) 16 98 % 127 kg (280 lb) Physical Exam Constitutional: Appearance: Normal appearance. Comments: Elevated BMI HENT: Head: Normocephalic and atraumatic. Eyes: General: No scleral icterus. Right eye: No discharge. Left eye: No discharge. Extraocular Movements: Extraocular movements intact. Pupils: Pupils are equal, round, and reactive to light. Cardiovascular: Rate and Rhythm: Normal rate and regular rhythm. Pulmonary: Effort: Pulmonary effort is normal. No respiratory distress. Abdominal: General: There is no distension. Palpations: Abdomen is soft. Musculoskeletal: General: No swelling. Normal range of motion. Cervical back: Neck supple. No rigidity or tenderness. Lymphadenopathy: Cervical: No cervical adenopathy. Skin: General: Skin is warm and dry. Capillary Refill: Capillary refill takes less than 2 seconds. Findings: No rash. Neurological: General: No focal deficit present. Mental Status: She is alert and oriented to person, place, and time. Psychiatric: Mood and Affect: Mood normal. Behavior: Behavior normal. Thought Content: Thought content normal. Judgment: Judgment normal. Diagnostic Testing ED Labs Ordered and Reviewed - No data to display Procedures ED Course / Clinical Impression ED Course as of 08/31/23 0011 Andrew Delgadillo's Documentation SatAug 30, 2023 2332 BP: 140/83 Clinical Impressions as of 08/31/23 0011 Headache disorder COVID-19 test performed per [facility] [place] policy for suspected COVID community exposure. MDM / Disposition / Plan Patient appears anxious heart rate is elevated 127 but she is nontoxic. Will check for influenza and check a CO level because she has been having some nonspecific symptoms and there is influenza in the community and seasonally would be suspicious for CO exposure although patient has no suspicious history for this. Also consider she might be having some reaction to Decadron especially with the symptom of feeling flushed and feeling weird. She does not appear to have any acute neurologic changes she has a supple neck she had negative CT imaging last night. Headache is not worst heada (more content not included)... Normal [facility] FLUABV+SARS-CoV-2+RSV Pnl Re sp KATELYNN+probeon 08-31-2023 FLUABV+SARS-CoV-2+RSV Pnl Resp KATELYNN+probe COVID 19 RESULT: Not detected The method used is RT-PCR or an equivalent NAAT method. Reference Range(the expected result in uninfected individuals): Not detected INFLUENZA A PCR: Not detected INFLUENZA B PCR: Not detected RSV PCR: Not detected Normal [facility] Comment on above: Performed By: #### 9 5941-1 ####[facility] [place] [facility]CLIA [id number] [place] [address] [facility] ED NOTEon 08-30-2023 ED NOTE HNO ID: [id number] Author: JAZMIN JOHNSTON, RN Service: Nursing Author Type: Registered Nurse Type: ED Notes Filed: 08/30/2023 21:54 Note Text: Pt reports she was seen yesterday for same problem but feels like it's worse today. Pt c/o headache and neck pain and states I just feel really weird Normal [facility] ALLIED HEALTHon 08-29-2023 ALLIED HEALTH HNO ID: [id number] Author: FIONA ROMERO CT Service: Radiology Author Type: Technologist Type: Allied Health Filed: 08/29/2023 18:54 Note Text: Radiology Service Progress Note PATIENT NAME: Alina Malik DATE OF SERVICE: August 29, 2023 TIME: 6:49 PM PATIENT IDENTITY VERIFICATION COMPLETED USING TWO (2) IDENTIFIERS: Name and Date of confirmed by patient verbally. FALL SCREENING: Has the patient had 2 falls in the last year or 1 fall with injury or currently using an Ambulatory Assistive Device (Walker, Cane, Wheelchair, Crutches, etc.)? No PATIENT GENDER DATA: Female. status: : No status: NO. PATIENT RELEVANT IMPLANT DATA REVIEWED: Not Applicable PATIENT PRESENTS WITH AN IMPLANTABLE OR ATTACHED TECHNICAL INSTRUCTOR COURSE DEVELOPER: No RADIOLOGY DEPARTMENT: CT; Exam(s) Completed: Brain PERIPHERAL IV DATA: Not applicable SIGNED BY: MOISES Melendez August 29, 2023 6:49 PM Normal [facility] CBC W Auto Differential pane l (Bld)on 08-29-2023 Basophils (Bld) [#/Vol] 0.04 10*3/uL Normal <0.11 [facility] Comment on above: Order Comment: Speci men Type: BLOOD SPECIMEN Ordering Facility: [facility] Address: [address] [place] [address] Performed By: #### 5 7021-8 #### [facility] CLIA [id number] [address] [place] [address] [place] Basophils/100 WBC (Bld) 0.4 % Normal [facility] Comment on above: Order Comment: Speci men Type: BLOOD SPECIMEN Ordering Facility: [facility] Address: [address] [place] [address] Performed By: #### 5 7021-8 #### [facility] CLIA [id number] [address] [place] [address] [place] Differential cell count method Nom (Bld) Auto Normal [facility] Comment on above: Order Comment: Speci men Type: BLOOD SPECIMEN Ordering Facility: [facility] Address: [address] [place] [address] Performed By: #### 5 7021-8 #### [facility] CLIA [id number] [address] [place] [address] [place] Eosinophils (Bld) [#/Vol] 0.27 10*3/uL Normal <0.46 [facility] Comment on above: Order Comment: Speci men Type: BLOOD SPECIMEN Ordering Facility: [facility] Address: [address] [place] [address] Performed By: #### 5 7021-8 #### [facility] CLIA [id number] [address] [place] Eosinophils/100 WBC (Bld) 2.6 % Normal [facility] Comment on above: Order Comment: Speci men Type: BLOOD SPECIMEN Ordering Facility: [facility] Address: [address] [place] [address] Performed By: #### 5 7021-8 #### [facility] CLIA [id number] [address] [place] Erythrocyte distribution width (RBC) [Ratio] 14.2 % Normal 11.5-15.0 [facility] Comment on above: Order Comment: Speci men Type: BLOOD SPECIMEN Ordering Facility: [facility] Address: [address] [place] [address] Performed By: #### 5 7021-8 #### [facility] CLIA [id number] [address] [place] [address] [place] Hematocrit (Bld) [Volume fraction] 38.5 % Normal 36.0-46.0 [facility] Comment on above: Order Comment: Speci men Type: BLOOD SPECIMEN Ordering Facility: [facility] Address: [address] [place] [address] Performed By: #### 5 7021-8 #### [facility] CLIA [id number] [address] [place] [id number] [place] Hemoglobin (Bld) [Mass/Vol] 12.7 g/dL Normal 11.5-15.5 [facility] Comment on above: Order Comment: Speci men Type: BLOOD SPECIMEN Ordering Facility: [facility] Address: [address] [place] [address] Performed By: #### 5 7021-8 #### [facility] CLIA [id number] [address] [place] [address] [place] Immature granulocytes (Bld) [#/Vol] 0.03 10*3/uL Normal <0.10 [facility] Comment on above: Order Comment: Speci men Type: BLOOD SPECIMEN Ordering Facility: [facility] Address: [address] [place] [address] Performed By: #### 5 7021-8 #### [facility] CLIA [id number] [address] [place] [address] [place] Immature granulocytes/100 WBC (Bld) 0.3 % Normal [facility] Comment on above: Order Comment: Speci men Type: BLOOD SPECIMEN Ordering Facility: [facility] Address: [address] [place] [address] Performed By: #### 5 7021-8 #### [facility] CLIA [id number] [address] [place] [address] [place] Lymphocytes (Bld) [#/Vol] 3.92 10*3/uL Normal 1.00-4.00 [facility] Comment on above: Order Comment: Speci men Type: BLOOD SPECIMEN Ordering Facility: [facility] Address: [address] [place] [address] Performed By: #### 5 7021-8 #### [facility] CLIA [id number] [address] [place] [id number] [place] Lymphocytes/100 WBC (Bld) 37.1 % Normal [facility] Comment on above: Order Comment: Speci men Type: BLOOD SPECIMEN Ordering Facility: [facility] Address: [address] [place] [address] Performed By: #### 5 7021-8 #### [facility] CLIA [id number] [address] [place] [address] [place] MCH (RBC) [Entitic mass] 27.5 pg Normal 26.0-34.0 [facility] Comment on above: Order Comment: Speci men Type: BLOOD SPECIMEN Ordering Facility: [facility] Address: [address] [place] [address] Performed By: #### 5 7021-8 #### [facility] CLIA [id number] [address] [place] [address] [place] MCHC (RBC) [Mass/Vol] 33.0 g/dL Normal 30.5-36.0 [facility] Comment on above: Order Comment: Speci men Type: BLOOD SPECIMEN Ordering Facility: [facility] Address: [address] [place] [address] Performed By: #### 5 7021-8 #### [facility] CLIA [id number] [address] [place] [address] [place] MCV (RBC) [Entitic vol] 83.3 fL Normal 80.0-100.0 [facility] Comment on above: Order Comment: Speci men Type: BLOOD SPECIMEN Ordering Facility: [facility] Address: [address] [place] [address] Performed By: #### 5 7021-8 #### [facility] CLIA [id number] [address] [place] [address] [place] Monocytes (Bld) [#/Vol] 0.38 10*3/uL Normal <0.87 [facility] Comment on above: Order Comment: Speci men Type: BLOOD SPECIMEN Ordering Facility: [facility] Address: [address] [place] [address] Performed By: #### 5 7021-8 #### [facility] CLIA [id number] [address] [place], [place] [address] [place] [address] Monocytes/100 WBC (Bld) 3.6 % Normal [facility] Comment on above: Order Comment: Speci men Type: BLOOD SPECIMEN Ordering Facility: [facility] Address: [address] [place] [address] Performed By: #### 5 7021-8 #### [facility] CLIA [id number] [address] [place] [address] [place] Neutrophils (Bld) [#/Vol] 5.92 10*3/uL Normal 1.45-7.50 [facility] Comment on above: Order Comment: Speci men Type: BLOOD SPECIMEN Ordering Facility: [facility] Address: [address] [place] [address] Performed By: #### 5 7021-8 #### [facility] CLIA [id number] [address] [place] [address] [place] Neutrophils/100 WBC (Bld) 56.0 % Normal [facility] Comment on above: Order Comment: Speci men Type: BLOOD SPECIMEN Ordering Facility: [facility] Address: [address] [place] [address] Performed By: #### 5 7021-8 #### [facility] CLIA [id number] [address] [place] [address] [place] Nucleated RBC (Bld) [#/Vol] Normal [facility] Comment on above: Order Comment: Speci men Type: BLOOD SPECIMEN Ordering Facility: [facility] Address: [address] [place] [address] Performed By: #### 5 7021-8 #### [facility] CLIA [id number] [address] [place] [address] [place] Nucleated RBC/100 WBC (Bld) [Ratio] Normal [facility] Comment on above: Order Comment: Speci men Type: BLOOD SPECIMEN Ordering Facility: [facility] Address: [address] [place] [address] Performed By: #### 5 7021-8 #### [facility] CLIA [id number] [address] [place] [address] [place] Platelet mean volume (Bld) [Entitic vol] 8.6 fL Low 9.0-12.7 [facility] Comment on above: Order Comment: Speci men Type: BLOOD SPECIMEN Ordering Facility: [facility] Address: [address] [place] [address] Performed By: #### 5 7021-8 #### [facility] CLIA [id number] [address] [place] [address] [facility] Platelets (Bld) [#/Vol] 358 10*3/uL Normal 150-400 [facility] Comment on above: Order Comment: Speci men Type: BLOOD SPECIMEN Ordering Facility: [facility] Address: [address] [place] [address] Performed By: #### 5 7021-8 #### [facility] CLIA [id number] [address] [place] [address] OF [facility] RBC (Bld) [#/Vol] 4.62 10*6/uL Normal 3.90-5.20 [facility] Comment on above: Order Comment: Speci men Type: BLOOD SPECIMEN Ordering Facility: [facility] Address: [address] [place] [address] Performed By: #### 5 7021-8 #### [facility] CLIA [id number] [address] [place] [address] WBC (Bld) [#/Vol] 10.56 10*3/uL Normal 3.70-11.00 [facility] Comment on above: Order Comment: Speci men Type: BLOOD SPECIMEN Ordering Facility: [facility] Address: [address] [place] [address] Performed By: #### 5 7021-8 #### [facility] CLIA [id number] [address] [place], [place] [address] [place] [address] CT BRAIN WO IVCONon 08-29-[address] BRAIN WO IVCON * * *Final Report* * * DATE OF EXAM: Aug 29 2023 6:54PM [facility] 0504 - CT BRAIN WO IVCON / PROCEDURE REASON: Headache, chronic, new features or increased frequency * * * * Physician Interpretation * * * * EXAMINATION: CT BRAIN WO IVCON CLINICAL HISTORY: Headache TECHNIQUE: Serial axial images without IV contrast were obtained from the vertex to the foramen magnum. MQ: CTBWO_3 CT Radiation dose: Integrated Dose-Length Product (DLP) for this visit = 706.22 mGy*cm CT Dose Reduction Employed: Automated exposure control(AEC) and iterative recon COMPARISON: None. RESULT: Senior Communications Engineer (topogram) images: No additional findings. Post-operative change: None. Acute change: No evidence of an acute infarct or other acute parenchymal process. Hemorrhage: No evidence of acute intracranial hemorrhage. ECASS hemorrhagic transformation score: Not Applicable Mass Lesion / Mass Effect: There is no evidence of an intracranial mass or extraaxial fluid collection. No significant mass effect. Chronic change: None apparent. Parenchyma: There is no significant volume loss. The brain parenchyma is otherwise within normal limits for age. Ventricles: The ventricles are within normal limits of size and configuration for age. Paranasal sinuses and skull base: The visualized paranasal sinuses are grossly clear. The skull base and imaged soft tissues are unremarkable. IMPRESSION: No evidence of acute intracranial process Cream Tester: VIOLETTA Transcribe Date/Time: Aug 29 2023 7:03P Dictated by : PATRICK BLACKWELL MD This examination was interpreted and the report reviewed and electronically signed by: PATRICK BLACKWELL MD on Aug 29 2023 7:09PM EST [id number] Normal [facility] Comprehensive metabolic 2000 panelon 08-29-2023 Albumin [Mass/Vol] 4.3 g/dL Normal 3.9-4.9 [facility] Comment on above: Order Comment: Oh sullivan Type: BLOOD SPECIMEN Ordering Facility: [facility] Address: [address] [place] [address] Performed By: #### 2 4323-8, 85457-6, 3040-3 #### [facility] CLIA [id number] [address] [place], [place] [address] [place] [facility] ALP [Catalytic activity/Vol] 122 U/L Normal 34-123 [facility] Comment on above: Order Comment: Oh sullivan Type: BLOOD SPECIMEN Ordering Facility: [facility] Address: [address] [place], [place] [address] Performed By: #### 2 4323-8, 92386-8, 0-3 #### [facility] CLIA [id number] [address] [place] [address] [place] ALT With P-5'-P [Catalytic activity/Vol] 14 U/L Normal 7-38 [facility] Comment on above: Order Comment: Speci men Type: BLOOD SPECIMEN Ordering Facility: [facility] Address: [address] [place] [address] Performed By: #### 2 4323-8, 97669-4, 0-3 #### [facility] CLIA [id number] [address] [place] [address] [place] Anion gap [Moles/Vol] 12 mmol/L Normal 9-18 [facility] Comment on above: Order Comment: Speci men Type: BLOOD SPECIMEN Ordering Facility: [facility] Address: [address] [place], [place] [address] Performed By: #### 2 4323-8, , 0-3 #### [facility] CLIA [id number] [address] [place] [address] [place] AST With P-5'-P [Catalytic activity/Vol] 18 U/L Normal 13-35 [facility] Comment on above: Order Comment: Speci men Type: BLOOD SPECIMEN Ordering Facility: [facility] Address: [address] [place] [address] Performed By: #### 2 4323-8, , 0-3 #### [facility] CLIA [id number] [address] [place] [address] [place] Bilirubin [Mass/Vol] 0.5 mg/dL Normal 0.2-1.3 [facility] Comment on above: Order Comment: Speci men Type: BLOOD SPECIMEN Ordering Facility: [facility] Address: [facility] [place] [address] Performed By: #### 2 4323-8, 20416-2, 0-3 #### [facility] CLIA [id number] [address] [place] [address] [place] Calcium [Mass/Vol] 9.2 mg/dL Normal 8.5-10.2 [facility] Comment on above: Order Comment: Speci men Type: BLOOD SPECIMEN Ordering Facility: [facility] Address: [address] [place] [address] Performed By: #### 2 4323-8, , 3039-3 #### [facility] CLIA [id number] [address] [place] [address] [place] Chloride [Moles/Vol] 105 mmol/L Normal 97-105 [facility] Comment on above: Order Comment: Speci men Type: BLOOD SPECIMEN Ordering Facility: [facility] Address: [address] [place] [address] Performed By: #### 2 4323-8, , 3 #### [facility] CLIA [id number] [address] [place] [address] [place] CO2 [Moles/Vol] 24 mmol/L Normal 22-30 [facility] Comment on above: Order Comment: Speci men Type: BLOOD SPECIMEN Ordering Facility: [facility] Address: [address] [place] [address] Performed By: #### 2 4323-8, , 3 #### [facility] CLIA [id number] [address] [place] [address] [place] Creatinine [Mass/Vol] 0.74 mg/dL Normal 0.58-0.96 [facility] Comment on above: Order Comment: Speci men Type: BLOOD SPECIMEN Ordering Facility: [facility] Address: [address] [place] [address] Performed By: #### 2 4323-8, , 3039-3 #### [facility] CLIA [id number] [address] [place] [address] [place] Creatinine and Glomerular filtration rate.predicted panel (S/P/Bld) 119 mL/min/1.73m??? Normal >=60 [facility] Comment on above: Order Comment: Oh sullivan Type: BLOOD SPECIMEN Ordering Facility: [facility] Address: [address] [place] [address] Result Comment: Jayla mated Glomerular Filtration Rate (eGFR) is calculated using the 2020 CKD-EPI creatinine equation. This equation utilizes serum creatinine, sex, and age as parameters. The creatinine assay has traceable calibration to isotope dilution-mass spectrometry. Refer to KDIGO guidelines for clinical interpretation. In patients with unstable renal function, e.g. those with acute kidney injury, the eGFR may not accurately reflect actual GFR. Performed By: #### 2 4323-8, 42594-4, 3039-3 #### [facility] CLIA [id number] [address] [place] [address] [place] Glucose [Mass/Vol] 104 mg/dL High 74-99 [facility] Comment on above: Order Comment: Oh sullivan Type: BLOOD SPECIMEN Ordering Facility: [facility] Address: [address] [place] [address] Result Comment: The [place] Diabetes Association (ADA) provides guidance for cutoff values for fasting glucose and random glucose. The ADA defines fasting as no caloric intake for at least 8 hours. Fasting plasma glucose results between 100 to 125 mg/dL indicate increased risk for diabetes (prediabetes). Fasting plasma glucose results greater than or equal to 126 mg/dL meet the criteria for diagnosis of diabetes. In the absence of unequivocal hyperglycemia, results should be confirmed by repeat testing. In a patient with classic symptoms of hyperglycemia or hyperglycemic crisis, random plasma glucose results greater than or equal to 200 mg/dL meet the criteria for diagnosis of diabetes. Reference: Standards of Medical Care in Diabetes 2016, [place] [employer]. Diabetes Care. 2016.39(Suppl 1). Performed By: #### 2 4323-8, 65621-8, 3039-3 #### [facility] CLIA [id number] [address] [place] [address] [place] Potassium [Moles/Vol] 3.9 mmol/L Normal 3.7-5.1 [facility] Comment on above: Order Comment: Speci men Type: BLOOD SPECIMEN Ordering Facility: [facility] Address: [address] [place], [place] [address] Performed By: #### 2 4323-8, 16776-5, 0-3 #### [facility] CLIA [id number] [address] [place] [address] [place] Protein [Mass/Vol] 7.5 g/dL Normal 6.3-8.0 [facility] Comment on above: Order Comment: Speci men Type: BLOOD SPECIMEN Ordering Facility: [facility] Address: [address] [place], [place] [address] Performed By: #### 2 4323-8, , 0-3 #### [facility] CLIA [id number] [address] [place] [address] [facility] Sodium [Moles/Vol] 141 mmol/L Normal 136-144 [facility] Comment on above: Order Comment: Speci men Type: BLOOD SPECIMEN Ordering Facility: [facility] Address: [address] [place], [place] [address] Performed By: #### 2 4323-8, , 0-3 #### [facility] CLIA [id number] [address] [place] [address] [place] Urea nitrogen [Mass/Vol] 14 mg/dL Normal 7-21 [facility] Comment on above: Order Comment: Speci men Type: BLOOD SPECIMEN Ordering Facility: [facility] Address: [address] [place] [address] Performed By: #### 2 4323-8, , 0-3 #### [facility] CLIA [id number] [address] [place] [address] [facility] [place] ED NOTEon 08-29-2023 ED NOTE HNO ID: [id number] Author: CANDY TEMPLE RN Service: Emergency Medicine Author Type: Registered Nurse Type: ED Notes Filed: 08/30/2023 12:46 Note Text: Emergency Services: ED Call Back Questionnaire SERVICE DATE: 08/29/2023 Are you feeling better? Yes Any questions about discharge instructions and follow-up care? No Were you able to make a follow up appointment? Yes Do you have any further questions? No Is there anything that we could have done differently to improve your ED visit? No SIGNATURE: Candy Temple RN PATIENT NAME: Alina Malik DATE: August 30, 2023 TIME: 12:45 PM [facility] ED NOTE HNO ID: [id number] Author: CARINA GARCIA RN Service: Emergency Medicine Author Type: Registered Nurse Type: ED Notes Filed: 08/29/2023 20:55 Note Text: Patient discharge instructions given to patient. Patient educated on discharge instructions. Patient denied having questions at this time regarding discharge instructions. Patient discharged home at this time. [facility] ED NOTE HNO ID: [id number] Author: CARINA GARCIA RN Service: Emergency Medicine Author Type: Registered Nurse Type: ED Notes Filed: 08/29/2023 20:39 Note Text: Patient informed about the name of the medication(s), what the medication(s) is(are) for, and what to expect with/from med administration. Patient given opportunity to ask questions. Medication(s) include: Decadron. [facility] ED NOTE HNO ID: [id number] Author: CARINA GARCIA RN Service: Emergency Medicine Author Type: Registered Nurse Type: ED Notes Filed: 08/29/2023 19:19 Note Text: Patient informed about the name of the medication(s), what the medication(s) is(are) for, and what to expect with/from med administration. Patient given opportunity to ask questions. Medication(s) include: Toradol, Magnesium Sulfate. [facility] ED NOTE HNO ID: [id number] Author: CARINA GARCIA RN Service: Emergency Medicine Author Type: Registered Nurse Type: ED Notes Filed: 08/29/2023 20:56 Note Text: Change of shift report received from Jeanie Cody RN. I assumed patient care at this time. [facility] ED NOTE HNO ID: [id number] Author: JEANIE MCKINNON RN Service: ? Author Type: Registered Nurse Type: ED Notes Filed: 08/29/2023 17:52 Note Text: Pt reports vision changes x 2 weeks. Pt reports sudden onset white spots with difficulty seeing; seen by ED - unknown etiology. Pt reports new onset HAs, neck pain and tinnitus x 2 days. Pt reports nausea without emesis, denies D/V. Reports SILVER as behind RIYA eyes and at the base of head. Normal [facility] ED PROV NOTEon 08-29-2023 ED PROV NOTE HNO ID: [id number] Author: TORRES TREVIÑO MD Service: Emergency Medicine Author Type: Physician Type: ED Provider Notes Filed: 08/29/2023 20:34 Note Text: ED Provider Note Patient Name: Alina Malik : 2005 SERVICE DATE: 08/29/23 History Patient presents with: Headache Patient is a 18-year-old female with history anxiety, migraines, fibromyalgia presenting to the emergency room for evaluation of headache. States symptoms started about 2 weeks ago, initially when she was at work she developed white spots in her eyes, and then a fairly severe headache. She went to urgent care and then the [place] [facility] where she had blood work and migraine cocktail. She states that did not do neuroimaging, and discharged her after her nausea was improved but her headache was no better. Since that time she has had waxing and waning headaches that typically resolve overnight and then worsen when she goes to work and then improved in the evening. No neck stiffness. No fevers or chills. No further visual field spots, but she feels that she has difficulty focusing. She has not passed out or lost consciousness. No focal numbness or weakness. No falls or trauma. She is on Mirena control but denies other hormones or history of blood clots. No double vision or ataxia. No seizure-like activity. Headache rated as 6 out of 10. She has tried Excedrin for symptoms at home. Denies other acute sick symptoms. States that she was taken off most of her psychiatric medications in February, and has not restarted them yet. PAST MEDICAL HISTORY Diagnosis Date Anxiety state Depression History reviewed. No pertinent surgical history. FAMILY HISTORY Problem Relation Age of Onset Hypertension Mother COPD Mother Social History Tobacco Use Smoking status: Never Smokeless tobacco: Never Vaping Use Vaping Use: Never used Substance and Sexual Activity Alcohol use: Never Drug use: Never Sexual activity: Not on file ALLERGIES Allergen Reactions Wellbutrin [Bupropi* Rash Review of Systems Constitutional: Negative for activity change, chills and fever. HENT: Negative for ear discharge and ear pain. Eyes: Negative for pain and discharge. Respiratory: Negative for cough and shortness of breath. Cardiovascular: Negative for chest pain and palpitations. Gastrointestinal: Negative for abdominal pain, diarrhea, nausea and vomiting. Genitourinary: Negative for dysuria and flank pain. Musculoskeletal: Negative for back pain and neck pain. Skin: Negative for color change, rash and wound. Neurological: Positive for headaches. Negative for dizziness, seizures and numbness. Psychiatric/Behavioral: Positive for decreased concentration. Negative for self-injury and suicidal ideas. Physical Exam Vitals [08/29/23 1753] BP Pulse Temp Temp src Resp SpO2 Weight Height 134/83 (!) 95 36.3 ?C (97.3 ?F) Temporal 16 100 % 127 kg (280 lb) 1.626 m (5' 4) Physical Exam Vitals and nursing note reviewed. Constitutional: General: She is not in acute distress. Appearance: She is well-developed. She is obese. She is not diaphoretic. HENT: Head: Normocephalic and atraumatic. Right Ear: External ear normal. Left Ear: External ear normal. Nose: Nose normal. Mouth/Throat: Mouth: Mucous membranes are moist. Pharynx: No oropharyngeal exudate or posterior oropharyngeal erythema. Comments: No posterior oropharynx swelling or exudate. Uvula midline without edema. No drooling or dysphonia. No woody induration underneath the tongue. Tongue is midline without elevation. Eyes: General: No scleral icterus. Right eye: No discharge. Left eye: No discharge. Pupils: Pupils are equal, round, and reactive to light. Neck: Comments: No Kernig's or Brudzinski's signs Cardiovascular: Rate and Rhythm: Normal rate and regular rhythm. Heart sounds: Normal heart sounds. No murmur heard. No friction rub. No gallop. Pulmonary: Effort: Pulmonary effort is normal. No respiratory distress. Breath sounds: Normal breath sounds. No stridor. No wheezing or rales. Chest: Chest wall: No tenderness. Abdominal: Palpations: Abdomen is soft. Tenderness: There is no abdominal tenderness. There is no guarding. Musculoskeletal: General: No tenderness or deformity. Normal range of motion. Cervical back: Normal range of motion and neck supple. Skin: General: Skin is warm and dry. Capillary Refill: Capillary refill takes less than 2 seconds. Findings: No rash. Neurological: General: No focal deficit present. Mental Status: She is alert and oriented to person, place, and time. Cranial Nerves: No cranial nerve deficit. Sensory: No sensory deficit. Motor: No weakness. Comments: NIH stroke scale 0. Ambulatory without ataxia. Negative wrdwtf-br-zvvx bilaterally. Negative test of skew. No vertical or horizontal nystagmus noted on exam, back no notable nystagmus on exam. (more content not included)... Normal [facility] HCG Preg Ur Qlon 08-29-2023 HCG ( test) Ql (U) Negative Normal Negative [facility] Comment on above: Order Comment: Oh sullivan Type: URINE SPECIMEN Ordering Facility: [facility] Address: [address] [place] [address] Result Comment: This test is intended to aid in the early detection of . Very dilute urine samples, as indicated by a low specific gravity, may not contain international representative levels of hCG. This test detects intact hCG only. This test does not reliably detect hCG degradation products, including free-beta subunit and beta-core fragment. Therefore, this test may show reduced reactivity in urine after 8 weeks gestation. A number of conditions other than , including trophoblastic disease and certain non-trophoblastic neoplasms cause elevated levels of hCG. As with any assay employing mouse antibodies, the possibility exists for interference by human anti-mouse antibodies (HAMA) in the specimen. The test provides a presumptive diagnosis for . Performed By: #### 2 106-3 #### [facility] CLIA [id number] [address] [place] [address] [place] Lipase SerPl-cCncon 08-29-19 24 Lipase [Catalytic activity/Vol] 18 U/L Normal 16-61 [facility] Comment on above: Order Comment: Oh sullivan Type: BLOOD SPECIMEN Ordering Facility: [facility] Address: [address] [place] [address] Performed By: #### 2 4323-8, 79982-6, 3040-3 #### [facility] CLIA [id number] [address] [place] [address] [place] Magnesium SerPl-mCncon 08-28 Magnesium [Mass/Vol] 2.0 mg/dL Normal 1.7-2.3 [facility] Comment on above: Order Comment: Speci men Type: BLOOD SPECIMEN Ordering Facility: [facility] Address: [address] [place] [address] Performed By: #### 2 4323-8, 79740-9, 3040-3 #### [facility] CLIA [id number] [address] [place] [address] [place] Urinalysis complete panel (U )on 08-29-2023 Bacteria LM.HPF (Urine sed) [#/Area] Rare Abnormal None Seen [facility] Comment on above: Order Comment: Speci men Type: URINE SPECIMEN Ordering Facility: [facility] Address: [address] [place] [address] Performed By: #### 2 4356-8 #### [facility] CLIA [id number] [address] [place] [address] [place] Bilirubin Ql (U) Negative Normal Negative [facility] Comment on above: Order Comment: Speci men Type: URINE SPECIMEN Ordering Facility: [facility] Address: [address] [place] [address] Performed By: #### 2 4356-8 #### [facility] CLIA [id number] [address] [place] [address] [place] Clarity (Unsp spec) Clear Normal Clear [facility] Comment on above: Order Comment: Speci men Type: URINE SPECIMEN Ordering Facility: [facility] Address: [address] [place] [address] Performed By: #### 2 4356-8 #### [facility] CLIA [id number] [address] [place] [address] [facility] [place] Color (U) Yellow Normal Yellow [facility] Comment on above: Order Comment: Speci men Type: URINE SPECIMEN Ordering Facility: [facility] Address: [address] [place] [address] Performed By: #### 2 4356-8 #### [facility] CLIA [id number] [address] [place] [address] [place] Epithelial cells LM.HPF (Urine sed) [#/Area] Few Normal [facility] Comment on above: Order Comment: Speci men Type: URINE SPECIMEN Ordering Facility: [facility] Address: [address] [place] [address] Performed By: #### 2 4356-8 #### [facility] CLIA [id number] [address] [place] [address] [place] [facility] [place] Glucose Test strip (U) [Mass/Vol] Negative Normal Negative [facility] Comment on above: Order Comment: Speci men Type: URINE SPECIMEN Ordering Facility: [facility] Address: [address] [place] [address] Performed By: #### 2 4356-8 #### [facility] CLIA [id number] [address] [place] [address] [place] Hemoglobin Ql (U) Trace Abnormal Negative [facility] Comment on above: Order Comment: Speci men Type: URINE SPECIMEN Ordering Facility: [facility] Address: [address] [place] [address] Performed By: #### 2 4356-8 #### [facility] CLIA [id number] [address] [place] [address] [place] Ketones Ql (U) Negative Normal Negative [facility] Comment on above: Order Comment: Speci men Type: URINE SPECIMEN Ordering Facility: [facility] Address: [address] [place] [address] Performed By: #### 2 4356-8 #### [facility] CLIA [id number] [address] [place] [address] [place] Leukocyte esterase Test strip Ql (U) Negative Normal Negative [facility] Comment on above: Order Comment: Speci men Type: URINE SPECIMEN Ordering Facility: [facility] Address: [address] [place] [address] Performed By: #### 2 4356-8 #### [facility] CLIA [id number] [address] [place] [address] [place] Nitrite Ql (U) Negative Normal Negative [facility] Comment on above: Order Comment: Speci men Type: URINE SPECIMEN Ordering Facility: [facility] Address: [address] [place] [address] Performed By: #### 2 4356-8 #### [facility] CLIA [id number] [address] [place] [address] [place] pH (U) 7.0 [pH] Normal 5.0-8.0 [facility] Comment on above: Order Comment: Speci men Type: URINE SPECIMEN Ordering Facility: [facility] Address: [address] [place] [address] Performed By: #### 2 4356-8 #### [facility] CLIA [id number] [address] [place] [address] [place] Protein (U) [Mass/Vol] Negative Normal Negative [facility] Comment on above: Order Comment: Speci men Type: URINE SPECIMEN Ordering Facility: [facility] Address: [address] [place] [address] Performed By: #### 2 4356-8 #### [facility] CLIA [id number] [address] [place] [address] [place] RBC LM.HPF (Urine sed) [#/Area] 0-3 /HPF Normal 0-3 /HPF [facility] Comment on above: Order Comment: Speci men Type: URINE SPECIMEN Ordering Facility: [facility] Address: [address] [place] [address] Performed By: #### 2 4356-8 #### [facility] CLIA [id number] [address] [place] [address] [place] Specific gravity (U) [Rel density] 1.015 Normal 1.005-1.030 [facility] Comment on above: Order Comment: Speci men Type: URINE SPECIMEN Ordering Facility: [facility] Address: [address] [place] [address] Performed By: #### 2 4356-8 #### [facility] CLIA [id number] [address] [place] [address] [facility] [place] Urobilinogen Ql (U) 1.0 EU/dL Normal 0.2-1.0 EU/dL [facility] Comment on above: Order Comment: Speci men Type: URINE SPECIMEN Ordering Facility: [facility] Address: [address] [place] [address] Performed By: #### 2 4356-8 #### [facility] CLIA [id number] [address] [place] [address] [place] WBC LM.HPF (Urine sed) [#/Area] 0-5 /HPF Normal 0-5 /HPF [facility] Comment on above: Order Comment: Speci men Type: URINE SPECIMEN Ordering Facility: [facility] Address: [address] [place] [address] Performed By: #### 2 4356-8 #### [facility] CLIA [id number] [address] [place] [address] [place] C-REACTIVE PROTEIN (CRP)on 0 12-14-2022 CRP [Mass/Vol] 1.0 mg/dL High <0.9 mg/dL [facility] Absolute lymphocyte counton 07-09-2022 Lymphocytes Auto (Unsp spec) [#/Vol] 3.72 10*3/uL 0.83-4.51 [facility] Work Phone: Basophil percentageon 2022 Basophils/100 WBC (Bld) 0.7 % 0-1 [facility] Work Phone: Chloride [Moles/Vol] 109 mmol/L 98-107 [facility] Work Phone: Eosinophils/100 WBC (Bld) 5.9 % 0-5 [facility] Work Phone: Glucose [Mass/Vol] 115 mg/dL 74-106 [facility] Work Phone: Comment on above: Fasting Glucose resu lt from 100 to 125 mg/dL suggests IMPAIRED HOMEOSTASIS per A.D.A. criteria. Neutrophils (Bld) [#/Vol] 6.2 10*3/uL 2.0-7.7 [facility] Work Phone: Neutrophils/100 WBC (Bld) 55.7 % 47-70 [facility] Work Phone: Potassium [Moles/Vol] 3.8 mmol/L 3.5-5.1 [facility] Work Phone: Sodium [Moles/Vol] 140 mmol/L 136-145 [facility] Work Phone: WBC (Bld) [#/Vol] 11.1 10*3/uL 4.4-11.0 [facility] Work Phone: Beta hCG serum qualon 2022 Beta HCG ( test) Ql Negative [facility] Work Phone: Blood erythrocytes count (nu mber/volume)on 07-09-2022 RBC (Bld) [#/Vol] 4.50 10*6/uL 4.2-5.4 [facility] Work Phone: Blood hemoglobin measurement (mass/volume)on 07-09-2022 Hemoglobin (Bld) [Mass/Vol] 12.8 g/dL 12.0-15.0 [facility] Work Phone: Blood lymphocytes/100 leukoc yteson 07-09-2022 Lymphocytes/100 WBC (Bld) 33.5 % 19-41 [facility] Work Phone: Blood monocytes/100 leukocyt eson 07-09-2022 Monocytes/100 WBC (Bld) 3.9 % 0-10 [facility] Work Phone: Blood platelet mean volumeon 07-09-2022 Platelet mean volume (Bld) [Entitic vol] 8.7 fL 6.2-12.0 [facility] Work Phone: [phone] Determination of erythrocyte mean corpuscular volume (MCV)on 07-09-2022 MCV (RBC) [Entitic vol] 85.3 fL 81-99 [facility] Work Phone: [phone] Hematocrit Auto (Bld) [Volum e fraction]on 07-09-2022 Hematocrit (Bld) [Volume fraction] 38.4 % 37-47 [facility] Work Phone: [phone] Laboratory - Chemistry and C hemistry - challengeon 07-09-2022 CO2 [Moles/Vol] 26.0 mmol/L 21.0-32.0 [facility] Work Phone: [phone] Magnesium [Mass/Vol] 2.0 mg/dL 1.6-2.6 [facility] Work Phone: [phone] Urea nitrogen/Creatinine [Mass ratio] 18.3 mg/mg 10-20 [facility] Work Phone: [phone] Laboratory - Hematology and Cell countson 07-09-2022 Erythrocyte distribution width (RBC) [Entitic vol] 40.7 fL 35.1-43.9 [facility] Work Phone: [phone] Erythrocyte distribution width (RBC) [Ratio] 13.2 % 11.6-14.6 [facility] Work Phone: [phone] Immature granulocytes/100 WBC (Bld) 0.300 % 0.0-0.9 [facility] Work Phone: [phone] Comment on above: IG% - Immature Granu locytes (promyelocytes, myelocytes and metamyelocytes) > 1% indicates that a LEFT SHIFT is Present. MCH (RBC) [Entitic mass] 28.4 pg 27.0-32.0 [facility] Work Phone: [phone] Nucleated RBC/100 WBC (Bld) [Ratio] 0 % 0-5 [facility] Work Phone: [phone] MCHC Auto (RBC) [Mass/Vol]on 07-09-2022 MCHC (RBC) [Mass/Vol] 33.3 g/dL 32-36 [facility] Work Phone: No Panel Informationon 07-09 D-Dimer Quantitative (PE/DVT) 0.49 FEU/ug/m 0.27-0.49 [facility] Work Phone: Comment on above: NORMAL D-Dimer level (<0.50) indicates no DVT or PE. Estimated Creatinine Clearance Calc 113.41 ml/min [facility] Work Phone: Estimated GFR (MDRD) Amer 149 mL/min >60 [facility] Work Phone: Comment on above: GFR Calc Estimated GFR (MDRD) Non-Af Amer 123 mL/min >60 [facility] Work Phone: Comment on above: Non- GFR Calc Thyroid Stimulating Hormone (TSH) 5.14 uIU/mL 0.358-3.74 [facility] Work Phone: Platelets bldon 07-09-2022 Platelets (Bld) [#/Vol] 342 10*3/uL 150-450 [facility] Work Phone: Serum or plasma calcium jami urement (mass/volume)on 07-09-2022 Calcium [Mass/Vol] 8.5 mg/dL 8.5-10.1 [facility] Work Phone: Serum or plasma creatinine m easurement (mass/volume)on 07-09-2022 Creatinine [Mass/Vol] 0.66 mg/dL 0.55-1.02 [facility] Work Phone: Comment on above: The validity of the calculated GFR & GFRAA in patients over 70 years has not been determined. Clinical correlation is essential. Serum or plasma urea nitroge n measurement (mass/volume)on 07-09-2022 Urea nitrogen [Mass/Vol] 12 mg/dL 7-18 [facility] Work Phone: [phone] Thin prep Papanicolaou smear with manual screeningon 07-09-2022 Thin prep Papanicolaou smear with manual screening 5 5-15 [facility] Work Phone: [phone] XR WRIST GENERAL 3V PA/LAT/O BL RIGHTon 05-14-2022 [facility] XR Wrist - right PA and Late ral and Obliqueon 05-14-2022 IMPRESSION: No acute radiographic abnormalities seen in the right wrist. Cream Tester: [email or web address] Transcribe Date/Time: May 14 2022 5:02P Dictated by : ERICA HOWARD MD This examination was interpreted and the report reviewed and electronically signed by: ERICA HOWARD MD on May 14 2022 5:04PM [facility] DIVISION OF RADIOLOGY * * *Final Report* * * DATE [...] There is no significant soft tissue swelling. DIVISION OF RADIOLOGY Provider, [facility] - 05/14/2022 * * *Final Report* * * DATE [...] There is no significant soft tissue swelling. IMPRESSION IMPRESSION: No acute radiographic abnormalities seen in the right wrist. Cream Tester: VIOLETTA Transcribe Date/Time: May 14 2022 5:02P Dictated by : ERICA HOWARD MD This examination was interpreted and the report reviewed and electronically signed by: ERICA HOWARD MD on May 14 2022 5:04PM EST [facility] Radiology Study observation (narrative) [facility] XR Wrist - right PA and Late ral and ObliqueOrdered By: [facility] Provider on 05-14-2022 [facility] Absolute lymphocyte counton 04-09-2022 Lymphocytes Auto (Unsp spec) [#/Vol] 3.84 10*3/uL 0.83-4.51 [facility] Work Phone: Basophil percentageon 2021 Basophil percentage 0 SEEN /hpf 0-5 [facility] Work Phone: Basophils/100 WBC (Bld) 0.6 % 0-1 [facility] Work Phone: Bilirubin [Mass/Vol] 0.50 mg/dL 0.20-1.00 [facility] Work Phone: Comment on above: For patients on eltr ombopag therapy, use of Dimension [place] TBIL is not recommended. Chloride [Moles/Vol] 108 mmol/L 98-107 [facility] Work Phone: Eosinophils/100 WBC (Bld) 3.1 % 0-5 [facility] Work Phone: Glucose [Mass/Vol] 104 mg/dL 74-106 [facility] Work Phone: Comment on above: Fasting Glucose resu lt from 100 to 125 mg/dL suggests IMPAIRED HOMEOSTASIS per A.D.A. criteria. Neutrophils (Bld) [#/Vol] 5.0 10*3/uL 2.0-7.7 [facility] Work Phone: Neutrophils/100 WBC (Bld) 51.4 % 47-70 [facility] Work Phone: Potassium [Moles/Vol] 3.6 mmol/L 3.5-5.1 [facility] Work Phone: Protein [Mass/Vol] 6.8 g/dL 6.4-8.2 [facility] Work Phone: Sodium [Moles/Vol] 140 mmol/L 136-145 [facility] Work Phone: WBC (Bld) [#/Vol] 9.7 10*3/uL 4.4-11.0 [facility] Work Phone: Bilirubin Test strip Ql (U)o n 04-09-2022 Bilirubin Ql (U) Negative Negative [facility] Work Phone: Blood erythrocytes count (nu mber/volume)on 04-09-2022 RBC (Bld) [#/Vol] 4.53 10*6/uL 4.2-5.4 [facility] Work Phone: Blood hemoglobin measurement (mass/volume)on 04-09-2022 Hemoglobin (Bld) [Mass/Vol] 13.2 g/dL 12.0-15.0 [facility] Work Phone: Blood lymphocytes/100 leukoc yteson 04-09-2022 Lymphocytes/100 WBC (Bld) 39.5 % 19-41 [facility] Work Phone: Blood monocytes/100 leukocyt eson 04-09-2022 Monocytes/100 WBC (Bld) 5.2 % 0-10 [facility] Work Phone: Blood platelet mean volumeon 04-09-2022 Platelet mean volume (Bld) [Entitic vol] 8.8 fL 6.2-12.0 [facility] Work Phone: Determination of erythrocyte mean corpuscular volume (MCV)on 04-09-2022 MCV (RBC) [Entitic vol] 87.4 fL 81-99 [facility] Work Phone: Direct bilirubinon Bilirubin.direct [Mass/Vol] 0.13 mg/dL 0.00-0.30 [facility] Work Phone: Hematocrit Auto (Bld) [Volum e fraction]on 04-09-2022 Hematocrit (Bld) [Volume fraction] 39.6 % 37-47 [facility] Work Phone: Ketones Test strip Ql (U)on 04-09-2022 Ketones Ql (U) Negative Negative [facility] Work Phone: [phone] Laboratory - Chemistry and C hemistry - challengeon 04-09-2022 HCG ( test) Ql (U) Negative [facility] Work Phone: [phone] Comment on above: Very dilute urine sp ecimens, as indicated by a low specificgravity, may not contain international representative levels of hCG. If is still suspected, a first morning urinespecimen should be collected 48 hours later and tested. ALP [Catalytic activity/Vol] 104 U/L 45-117 [facility] Work Phone: [phone] ALT [Catalytic activity/Vol] 19 U/L 13-56 [facility] Work Phone: [phone] CO2 [Moles/Vol] 24.0 mmol/L 21.0-32.0 [facility] Work Phone: [phone] Globulin (S) [Mass/Vol] 3.3 g/dL 2.2-4.2 [facility] Work Phone: [phone] Lipase [Catalytic activity/Vol] 100 U/L 73-393 [facility] Work Phone: [phone] Urea nitrogen/Creatinine [Mass ratio] 14.3 mg/mg 10-20 [facility] Work Phone: [phone] Laboratory - Hematology and Cell countson 04-09-2022 Erythrocyte distribution width (RBC) [Entitic vol] 41.9 fL 35.1-43.9 [facility] Work Phone: [phone] Erythrocyte distribution width (RBC) [Ratio] 13.2 % 11.6-14.6 [facility] Work Phone: [phone] Immature granulocytes/100 WBC (Bld) 0.200 % 0.0-0.9 [facility] Work Phone: [phone] Comment on above: IG% - Immature Granu locytes (promyelocytes, myelocytes and metamyelocytes) > 1% indicates that a LEFT SHIFT is Present. MCH (RBC) [Entitic mass] 29.1 pg 27.0-32.0 [facility] Work Phone: [phone] Nucleated RBC/100 WBC (Bld) [Ratio] 0 % 0-5 [facility] Work Phone: MCHC Auto (RBC) [Mass/Vol]on 04-09-2022 MCHC (RBC) [Mass/Vol] 33.3 g/dL 32-36 [facility] Work Phone: Mucus LM Ql (Urine sed)on Mucus Ql (Urine sed) 0 SEEN /hpf [facility] Work Phone: Nitrite Test strip Ql (U)on 04-09-2022 Nitrite Ql (U) Negative Negative [facility] Work Phone: No Panel Informationon 04-09 Estimated Creatinine Clearance Calc 97.21 ml/min [facility] Work Phone: Estimated GFR (MDRD) Amer 124 mL/min >60 [facility] Work Phone: Comment on above: GFR Calc Estimated GFR (MDRD) Non-Af Amer 102 mL/min >60 [facility] Work Phone: Comment on above: Non- GFR Calc Platelets bldon 04-09-2022 Platelets (Bld) [#/Vol] 294 10*3/uL 150-450 [facility] Work Phone: Protein Test strip Ql (U)on 04-09-2022 Protein Ql (U) Negative Negative [facility] Work Phone: [phone] Serum or plasma albumin jami urement (mass/volume)on 04-09-2022 Albumin [Mass/Vol] 3.5 g/dL 3.2-5.0 [facility] Work Phone: [phone] Serum or plasma calcium jami urement (mass/volume)on 04-09-2022 Calcium [Mass/Vol] 9.0 mg/dL 8.5-10.1 [facility] Work Phone: [phone] Serum or plasma creatinine m easurement (mass/volume)on 04-09-2022 Creatinine [Mass/Vol] 0.77 mg/dL 0.55-1.02 [facility] Work Phone: Comment on above: The validity of the calculated GFR & GFRAA in patients over 70 years has not been determined. Clinical correlation is essential. Serum or plasma urea nitroge n measurement (mass/volume)on 04-09-2022 Urea nitrogen [Mass/Vol] 11 mg/dL 7-18 [facility] Work Phone: Squamous epithelial cells de tection in urine sediment by light microscopyon 04-09-2022 Epithelial cells.squamous LM Ql (Urine sed) 0-5 SEEN /hpf 5-10 [facility] Work Phone: Thin prep Papanicolaou smear with manual screeningon 04-09-2022 Thin prep Papanicolaou smear with manual screening 20 U/L 15-37 [facility] Work Phone: Thin prep Papanicolaou smear with manual screening 8 5-15 [facility] Work Phone: Urine blood detectionon 03-24 RBC Ql (U) Negative Negative [facility] Work Phone: RBC Ql (U) 0 SEEN /hpf 0-5 [facility] Work Phone: Urine clarityon 04-09-2022 Clarity (U) Clear Clear [facility] Work Phone: Urine color determinationon 04-09-2022 Color (U) Yellow Yellow [facility] Work Phone: Urine glucose detectionon Glucose Ql (U) Normal mg/dl Normal [facility] Work Phone: Urine leukocyte esterase det ection by dipstickon 04-09-2022 Leukocyte esterase Test strip Ql (U) Negative Negative [facility] Work Phone: Urine pHon 04-09-2022 pH (U) 6.0 [pH] 5.0 - 8.0 [facility] Work Phone: Urine sediment bacteria coun t by microscopy (number/high power field)on 04-09-2022 Bacteria LM.HPF (Urine sed) [#/Area] RARE /hpf None Seen [facility] Work Phone: Urine specific gravity measu rementon 04-09-2022 Specific gravity (U) [Rel density] 1.020 1.002-1.030 [facility] Work Phone: Urobilinogen Auto test strip Ql (U)on 04-09-2022 Urobilinogen Ql (U) Normal mg/dl Normal [facility] Work Phone: Absolute lymphocyte counton 12-12-2021 Lymphocytes Auto (Unsp spec) [#/Vol] 1.35 10*3/uL 0.83-4.51 [facility] [place] Work Phone: Basophil percentageon 2021 Basophils/100 WBC (Bld) 0.1 % 0-1 [facility] [place] Work Phone: Bilirubin [Mass/Vol] 1.60 mg/dL 0.20-1.00 [facility] Work Phone: Comment on above: For patients on eltr ombopag therapy, use of Dimension [place] TBIL is not recommended. Chloride [Moles/Vol] 108 mmol/L 98-107 [facility] Work Phone: Eosinophils/100 WBC (Bld) 1.6 % 0-3 [facility] [place] Work Phone: Glucose [Mass/Vol] 97 mg/dL 74-106 [facility] Work Phone: Neutrophils (Bld) [#/Vol] 7.3 10*3/uL 2.0-7.7 [facility] [place] Work Phone: Neutrophils/100 WBC (Bld) 79.5 % 34-64 [facility] [place] Work Phone: Potassium [Moles/Vol] 3.9 mmol/L 3.5-5.1 [facility] Work Phone: Protein [Mass/Vol] 7.2 g/dL 6.4-8.2 [facility] Work Phone: Sodium [Moles/Vol] 139 mmol/L 136-145 [facility] Work Phone: WBC (Bld) [#/Vol] 9.2 10*3/uL 4.5-13.0 [facility] Work Phone: Basophil percentage 0 SEEN /hpf 0-5 [facility] Work Phone: Beta hCG serum qualon 2021 Beta HCG ( test) Ql Negative [facility] [place] Work Phone: Bilirubin Test strip Ql (U)o n 12-12-2021 Bilirubin Ql (U) Negative Negative [facility] [place] Work Phone: Blood erythrocytes count (nu mber/volume)on 12-12-2021 RBC (Bld) [#/Vol] 4.87 10*6/uL 4.1-4.8 [facility] Work Phone: [phone] Blood hemoglobin measurement (mass/volume)on 12-12-2021 Hemoglobin (Bld) [Mass/Vol] 14.3 g/dL 12.0-15.0 [facility] [place] Work Phone: Blood lymphocytes/100 leukoc yteson 12-12-2021 Lymphocytes/100 WBC (Bld) 14.7 % 25-45 [facility] [place] Work Phone: Blood monocytes/100 leukocyt eson 12-12-2021 Monocytes/100 WBC (Bld) 3.7 % 3-6 [facility] [place] Work Phone: Blood platelet mean volumeon 12-12-2021 Platelet mean volume (Bld) [Entitic vol] 9.1 fL 6.2-12.0 [facility] [place] Work Phone: Determination of erythrocyte mean corpuscular volume (MCV)on 12-12-2021 MCV (RBC) [Entitic vol] 84.0 fL 78-96 [facility] [place] Work Phone: Hematocrit Auto (Bld) [Volum e fraction]on 12-12-2021 Hematocrit (Bld) [Volume fraction] 40.9 % 37-46 [facility] [place] Work Phone: Ketones Test strip Ql (U)on 12-12-2021 Ketones Ql (U) Negative Negative [facility] [place] Work Phone: [phone] Laboratory - Chemistry and C hemistry - challengeon 12-12-2021 ALP [Catalytic activity/Vol] 82 U/L 47-119 [facility] [place] Work Phone: [phone] ALT [Catalytic activity/Vol] 21 U/L 13-56 [facility] [place] Work Phone: [phone] CO2 [Moles/Vol] 24.0 mmol/L 21.0-32.0 [facility] [place] Work Phone: [phone] Globulin (S) [Mass/Vol] 3.5 g/dL 2.2-4.2 [facility] [place] Work Phone: [phone] Lipase [Catalytic activity/Vol] 92 U/L 73-393 [facility] [place] Work Phone: [phone] Urea nitrogen/Creatinine [Mass ratio] 21.9 mg/mg 10-20 [facility] [place] Work Phone: [phone] Laboratory - Hematology and Cell countson 12-12-2021 Erythrocyte distribution width (RBC) [Entitic vol] 39.3 fL 35.1-43.9 [facility] [place] Work Phone: [phone] Erythrocyte distribution width (RBC) [Ratio] 13.0 % 11.6-14.6 [facility] [place] Work Phone: [phone] Immature granulocytes/100 WBC (Bld) 0.400 % 0.0-0.9 [facility] [place] Work Phone: [phone] Comment on above: IG% - Immature Granu locytes (promyelocytes, myelocytes and metamyelocytes) > 1% indicates that a LEFT SHIFT is Present. MCH (RBC) [Entitic mass] 29.4 pg 25.0-35.0 [facility] [place] Work Phone: Nucleated RBC/100 WBC (Bld) [Ratio] 0 % 0-5 [facility] [place] Work Phone: [phone] MCHC Auto (RBC) [Mass/Vol]on 12-12-2021 MCHC (RBC) [Mass/Vol] 35.0 g/dL 32-36 [facility] Work Phone: Mucus LM Ql (Urine sed)on Mucus Ql (Urine sed) 0 SEEN /hpf [facility] Work Phone: Nitrite Test strip Ql (U)on 12-12-2021 Nitrite Ql (U) Negative Negative [facility] [place] Work Phone: No Panel Informationon 12-12 Estimated Creatinine Clearance Calc 117.92 ml/min [facility] [place] Work Phone: Estimated GFR (MDRD) Amer 155 mL/min >60 [facility] [place] Work Phone: Comment on above: GFR Calc Estimated GFR (MDRD) Non-Af Amer 128 mL/min >60 [facility] [place] Work Phone: Comment on above: Non- GFR Calc Platelets bldon 12-12-2021 Platelets (Bld) [#/Vol] 227 10*3/uL 150-450 [facility] [place] Work Phone: Protein Test strip Ql (U)on 12-12-2021 Protein Ql (U) Negative Negative [facility] [place] Work Phone: [phone] Serum or plasma albumin jami urement (mass/volume)on 12-12-2021 Albumin [Mass/Vol] 3.7 g/dL 3.2-5.0 [facility] Work Phone: [phone] Serum or plasma albumin/glob ulin mass ratioon 12-12-2021 Albumin/Globulin [Mass ratio] 1.1 {ratio} 0.9-2.4 [facility] [place] Work Phone: [phone] Serum or plasma calcium jami urement (mass/volume)on 12-12-2021 Calcium [Mass/Vol] 8.7 mg/dL 8.5-10.1 [facility] Work Phone: [phone] Serum or plasma creatinine m easurement (mass/volume)on 12-12-2021 Creatinine [Mass/Vol] 0.64 mg/dL 0.55-1.02 [facility] Work Phone: Comment on above: The validity of the calculated GFR & GFRAA in patients over 70 years has not been determined. Clinical correlation is essential. Serum or plasma urea nitroge n measurement (mass/volume)on 12-12-2021 Urea nitrogen [Mass/Vol] 14 mg/dL 7-18 [facility] [place] Work Phone: Squamous epithelial cells de tection in urine sediment by light microscopyon 12-12-2021 Epithelial cells.squamous LM Ql (Urine sed) 0-5 SEEN /hpf 5-10 [facility] [place] Work Phone: Thin prep Papanicolaou smear with manual screeningon 12-12-2021 Thin prep Papanicolaou smear with manual screening 19 U/L 15-37 [facility] [place] Work Phone: Thin prep Papanicolaou smear with manual screening 7 5-15 [facility] [place] Work Phone: Urine blood detectionon - RBC Ql (U) Negative Negative [facility] [place] Work Phone: RBC Ql (U) 0 SEEN /hpf 0-5 [facility] [place] Work Phone: Urine clarityon 12-12-2021 Clarity (U) Sl. Cloudy Clear [facility] [place] Work Phone: Urine color determinationon 12-12-2021 Color (U) Yellow Yellow [facility] [place] Work Phone: Urine glucose detectionon Glucose Ql (U) Normal mg/dl Normal [facility] [place] Work Phone: Urine leukocyte esterase det ection by dipstickon 12-12-2021 Leukocyte esterase Test strip Ql (U) Negative Negative [facility] [place] Work Phone: Urine pHon 12-12-2021 pH (U) 8.0 [pH] 5.0 - 8.0 [facility] [place] Work Phone: [phone] Urine sediment bacteria coun t by microscopy (number/high power field)on 12-12-2021 Bacteria LM.HPF (Urine sed) [#/Area] 1 /[HPF] None Seen [facility] [place] Work Phone: Urine specific gravity measu rementon 12-12-2021 Specific gravity (U) [Rel density] 1.015 1.002-1.030 [facility] [place] Work Phone: Urobilinogen Auto test strip Ql (U)on 12-12-2021 Urobilinogen Ql (U) Normal mg/dl Normal [facility] Work Phone: Absolute lymphocyte counton 10-01-2021 Lymphocytes Auto (Unsp spec) [#/Vol] 3.00 10*3/uL 0.83-4.51 [facility] [place] Work Phone: Basophil percentageon 2021 Basophils/100 WBC (Bld) 0.5 % 0-1 [facility] [place] Work Phone: Bilirubin [Mass/Vol] 0.80 mg/dL 0.20-1.00 [facility] Work Phone: Comment on above: For patients on eltr ombopag therapy, use of Dimension [place] TBIL is not recommended. Chloride [Moles/Vol] 107 mmol/L 98-107 [facility] Work Phone: Eosinophils/100 WBC (Bld) 1.4 % 0-3 [facility] [place] Work Phone: Glucose [Mass/Vol] 120 mg/dL 74-106 [facility] Work Phone: Comment on above: Fasting Glucose resu lt from 100 to 125 mg/dL suggests IMPAIRED HOMEOSTASIS per A.D.A. criteria. Neutrophils (Bld) [#/Vol] 7.8 10*3/uL 2.0-7.7 [facility] [place] Work Phone: Neutrophils/100 WBC (Bld) 68.2 % 34-64 [facility] [place] Work Phone: Potassium [Moles/Vol] 3.9 mmol/L 3.5-5.1 [facility] Work Phone: Protein [Mass/Vol] 6.9 g/dL 6.4-8.2 [facility] Work Phone: Sodium [Moles/Vol] 138 mmol/L 136-145 [facility] Work Phone: WBC (Bld) [#/Vol] 11.5 10*3/uL 4.5-13.0 [facility] Work Phone: Basophil percentage 0-5 SEEN /hpf 0-5 [facility] Work Phone: Bilirubin Test strip Ql (U)o n 10-01-2021 Bilirubin Ql (U) Negative Negative [facility] [place] Work Phone: Blood erythrocytes count (nu mber/volume)on 10-01-2021 RBC (Bld) [#/Vol] 4.46 10*6/uL 4.1-4.8 [facility] Work Phone: Blood hemoglobin measurement (mass/volume)on 10-01-2021 Hemoglobin (Bld) [Mass/Vol] 13.3 g/dL 12.0-15.0 [facility] [place] Work Phone: Blood lymphocytes/100 leukoc yteson 10-01-2021 Lymphocytes/100 WBC (Bld) 26.1 % 25-45 [facility] [place] Work Phone: Blood monocytes/100 leukocyt eson 10-01-2021 Monocytes/100 WBC (Bld) 3.3 % 3-6 [facility] [place] Work Phone: Blood platelet mean volumeon 10-01-2021 Platelet mean volume (Bld) [Entitic vol] 9.1 fL 6.2-12.0 [facility] [place] Work Phone: Culture, urineon 10-01-2021 Bacteria identified Cx Nom (U) Positive [facility] [place] Work Phone: Determination of erythrocyte mean corpuscular volume (MCV)on 10-01-2021 MCV (RBC) [Entitic vol] 87.4 fL 78-96 [facility] [place] Work Phone: Direct bilirubinon Bilirubin.direct [Mass/Vol] 0.22 mg/dL 0.00-0.30 [facility] [place] Work Phone: [phone] Hematocrit Auto (Bld) [Volum e fraction]on 10-01-2021 Hematocrit (Bld) [Volume fraction] 39.0 % 37-46 [facility] [place] Work Phone: [phone] Ketones Test strip Ql (U)on 10-01-2021 Ketones Ql (U) Negative Negative [facility] [place] Work Phone: [phone] Laboratory - Chemistry and C hemistry - challengeon 10-01-2021 ALP [Catalytic activity/Vol] 93 U/L 47-119 [facility] [place] Work Phone: [phone] ALT [Catalytic activity/Vol] 38 U/L 13-56 [facility] [place] Work Phone: [phone] CO2 [Moles/Vol] 27.0 mmol/L 21.0-32.0 [facility] [place] Work Phone: [phone] Globulin (S) [Mass/Vol] 3.3 g/dL 2.2-4.2 [facility] [place] Work Phone: [phone] Lipase [Catalytic activity/Vol] 58 U/L 73-393 [facility] [place] Work Phone: [phone] Urea nitrogen/Creatinine [Mass ratio] 14.9 mg/mg 10-20 [facility] [place] Work Phone: [phone] HCG ( test) Ql (U) Negative [facility] [place] Work Phone: [phone] Comment on above: Very dilute urine sp ecimens, as indicated by a low specificgravity, may not contain international representative levels of hCG. If is still suspected, a first morning urinespecimen should be collected 48 hours later and tested. Laboratory - Hematology and Cell countson 10-01-2021 Erythrocyte distribution width (RBC) [Entitic vol] 39.4 fL 35.1-43.9 [facility] [place] Work Phone: [phone] Erythrocyte distribution width (RBC) [Ratio] 12.2 % 11.6-14.6 [facility] [place] Work Phone: [phone] Immature granulocytes/100 WBC (Bld) 0.500 % 0.0-0.9 [facility] [place] Work Phone: Comment on above: IG% - Immature Granu locytes (promyelocytes, myelocytes and metamyelocytes) > 1% indicates that a LEFT SHIFT is Present. MCH (RBC) [Entitic mass] 29.8 pg 25.0-35.0 [facility] [place] Work Phone: Nucleated RBC/100 WBC (Bld) [Ratio] 0 % 0-5 [facility] [place] Work Phone: [phone] MCHC Auto (RBC) [Mass/Vol]on 10-01-2021 MCHC (RBC) [Mass/Vol] 34.1 g/dL 32-36 [facility] Work Phone: Mucus LM Ql (Urine sed)on Mucus Ql (Urine sed) 0 SEEN /hpf [facility] Work Phone: [phone] Nitrite Test strip Ql (U)on 10-01-2021 Nitrite Ql (U) Negative Negative [facility] [place] Work Phone: No Panel Informationon 10-01 Estimated Creatinine Clearance Calc 74.72 ml/min [facility] [place] Work Phone: Estimated GFR (MDRD) Amer 91 mL/min >60 [facility] [place] Work Phone: Comment on above: GFR Calc Estimated GFR (MDRD) Non-Af Amer 75 mL/min >60 [facility] [place] Work Phone: [phone] Comment on above: Non- GFR Calc Platelets bldon 10-01-2021 Platelets (Bld) [#/Vol] 298 10*3/uL 150-450 [facility] [place] Work Phone: [phone] Protein Test strip Ql (U)on 10-01-2021 Protein Ql (U) 30 mg/dl Negative [facility] [place] Work Phone: [phone] Serum or plasma albumin jami urement (mass/volume)on 10-01-2021 Albumin [Mass/Vol] 3.6 g/dL 3.2-5.0 [facility] Work Phone: Serum or plasma calcium jami urement (mass/volume)on 10-01-2021 Calcium [Mass/Vol] 8.7 mg/dL 8.5-10.1 [facility] Work Phone: Serum or plasma creatinine m easurement (mass/volume)on 10-01-2021 Creatinine [Mass/Vol] 1.01 mg/dL 0.55-1.02 [facility] Work Phone: Comment on above: The validity of the calculated GFR & GFRAA in patients over 70 years has not been determined. Clinical correlation is essential. Serum or plasma urea nitroge n measurement (mass/volume)on 10-01-2021 Urea nitrogen [Mass/Vol] 15 mg/dL 7-18 [facility] [place] Work Phone: [phone] Squamous epithelial cells de tection in urine sediment by light microscopyon 10-01-2021 Epithelial cells.squamous LM Ql (Urine sed) 0-5 SEEN /hpf 5-10 [facility] [place] Work Phone: Thin prep Papanicolaou smear with manual screeningon 10-01-2021 Thin prep Papanicolaou smear with manual screening 22 U/L 15-37 [facility] [place] Work Phone: [phone] Thin prep Papanicolaou smear with manual screening 4 5-15 [facility] [place] Work Phone: Urine blood detectionon 09-22 RBC Ql (U) 25 /ul Negative [facility] [place] Work Phone: [phone] RBC Ql (U) 0 SEEN /hpf 0-5 [facility] [place] Work Phone: Urine clarityon 10-01-2021 Clarity (U) Clear Clear [facility] [place] Work Phone: Urine color determinationon 10-01-2021 Color (U) Yellow Yellow [facility] [place] Work Phone: [phone] Urine glucose detectionon Glucose Ql (U) Normal mg/dl Normal [facility] [place] Work Phone: [phone] Urine leukocyte esterase det ection by dipstickon 10-01-2021 Leukocyte esterase Test strip Ql (U) 25 /ul Negative [facility] [place] Work Phone: Urine pHon 10-01-2021 pH (U) 7.0 [pH] 5.0 - 8.0 [facility] [place] Work Phone: Urine sediment bacteria coun t by microscopy (number/high power field)on 10-01-2021 Bacteria LM.HPF (Urine sed) [#/Area] 2 /[HPF] None Seen [facility] [place] Work Phone: Urine specific gravity measu rementon 10-01-2021 Specific gravity (U) [Rel density] 1.015 1.002-1.030 [facility] [place] Work Phone: Urobilinogen Auto test strip Ql (U)on 10-01-2021 Urobilinogen Ql (U) 4 mg/dl Normal [facility] Work Phone: Complete Blood Counton 03-18 Differential Complete Automated Normal [facility] Comment on above: Order Comment: Is th is specimen being sent to an external lab?->No Performed By: #### C BC ####[address] [phone] % Neutrophils 56.2 % Normal 34.0-64.0 [facility] Comment on above: Order Comment: Is th is specimen being sent to an external lab?->No Performed By: #### C BC ####[address] [phone] Basophils/100 WBC Auto (Bld) 0.60 % Normal 0.00-1.00 [facility] Comment on above: Order Comment: Is th is specimen being sent to an external lab?->No Performed By: #### C BC ####[address] [phone] Eosinophils/100 WBC Auto (Bld) 8.60 % High 0.00-3.00 [facility] Comment on above: Order Comment: Is th is specimen being sent to an external lab?->No Performed By: #### C BC ####[address] [phone] Erythrocyte distribution width Auto Ratio (RBC) 13.1 % Normal 0.0-14.4 [facility] Comment on above: Order Comment: Is th is specimen being sent to an external lab?->No Performed By: #### C BC ####[address] [phone] Hematocrit Auto Volume Fraction (Bld) 41.8 % Normal 37.0-46.0 [facility] Comment on above: Order Comment: Is th is specimen being sent to an external lab?->No Performed By: #### C BC ####[address] [phone] Hemoglobin mass conc (Bld) 14.2 g/dL Normal 12.0-15.0 [facility] Comment on above: Order Comment: Is th is specimen being sent to an external lab?->No Performed By: #### C BC ####[address] [phone] Immature granulocytes/100 WBC (Bld) 0.20 % Normal [facility] Comment on above: Order Comment: Is th is specimen being sent to an external lab?->No Result Comment: Sheryl ture Granulocyte Percent includes promyelocytes, myelocytes,and metamyelocytes. IG% > 1.0 indicates a left shift ispresent. With automated differentials, bands are includedin the neutrophil count and not in the Immature GranulocytePercent. Performed By: #### C BC ####[address] [phone] Lymphocytes/100 WBC Auto (Bld) 31.3 % Normal 25.0-45.0 [facility] Comment on above: Order Comment: Is th is specimen being sent to an external lab?->No Performed By: #### C BC ####[address] [phone] MCH Auto Entitic mass (RBC) 28.0 pg Normal 25.0-35.0 [facility] Comment on above: Order Comment: Is th is specimen being sent to an external lab?->No Performed By: #### C BC ####[address] [phone] MCHC Auto mass conc (RBC) 34.0 % Normal 31.0-37.0 [facility] Comment on above: Order Comment: Is th is specimen being sent to an external lab?->No Performed By: #### C BC ####[address] [phone] MCV Auto Entitic volume (RBC) 82.4 fL Normal 78.0-96.0 [facility] Comment on above: Order Comment: Is th is specimen being sent to an external lab?->No Performed By: #### C BC ####[address] [phone] Monocytes/100 WBC Auto (Bld) 3.10 % Normal 3.00-6.00 [facility] Comment on above: Order Comment: Is th is specimen being sent to an external lab?->No Performed By: #### C BC ####[address] [phone] Neutrophils Auto #/vol (Bld) 5.3 Normal [facility] Comment on above: Order Comment: Is th is specimen being sent to an external lab?->No Performed By: #### C BC ####[address] [phone] Nucleated RBC/100 WBC Ratio (Bld) 0.0 % Normal -1.0-0.0 [facility] Comment on above: Order Comment: Is th is specimen being sent to an external lab?->No Performed By: #### C BC ####[address] [phone] Platelet mean volume Auto Entitic volume (Bld) 9.7 fL Normal [facility] Comment on above: Order Comment: Is th is specimen being sent to an external lab?->No Result Comment: MPV is plateletrange and agedependent Performed By: #### C BC ####[address] [phone] Platelets Auto #/vol (Bld) 288 10*3/uL Normal 150-450 [facility] Comment on above: Order Comment: Is th is specimen being sent to an external lab?->No Performed By: #### C BC ####[address] [phone] RBC Auto #/vol (Bld) 5.07 10E12/L High 4.10-4.80 [facility] Comment on above: Order Comment: Is th is specimen being sent to an external lab?->No Performed By: #### C BC ####[address] [phone] WBC Auto #/vol (Bld) 9.5 10*3/uL Normal 4.5-13.0 [facility] Comment on above: Order Comment: Is th is specimen being sent to an external lab?->No Performed By: #### C BC ####[address] [phone] Lipid Panelon 03-18-2018 Cholesterol in HDL mass conc 49 mg/dL Normal [facility] Comment on above: Order Comment: Is th is specimen being sent to an external lab?->No Result Comment: Male < 40mg/dL High RiskFemale < 50mg/dL High RiskMale & Female > 60mg/dL Low Risk Performed By: #### L IPID ####[facility] [id number] Cholesterol in LDL mass conc 71 mg/dl Normal 0-129 [facility] Comment on above: Order Comment: Is th is specimen being sent to an external lab?->No Result Comment: Chula rable <130 mg/dLBorderline 130-159 mg/dLHigh Risk >159 mg/dl Performed By: #### L IPID ####[address] [id number] Cholesterol in VLDL mass conc 21 mg/dL Normal [facility] Comment on above: Order Comment: Is th is specimen being sent to an external lab?->No Performed By: #### L IPID ####[address] [id number] Cholesterol mass conc 141 mg/dL Normal 0-199 [facility] Comment on above: Order Comment: Is th is specimen being sent to an external lab?->No Result Comment: Chula rable <200 mg/dLBorderline 200-239 mg/dLHigh Risk >239 mg/dL Performed By: #### L IPID ####[address] [id number] Triglyceride mass conc 106 mg/dL Normal [facility] Comment on above: Order Comment: Is th is specimen being sent to an external lab?->No Result Comment: Norm al <150 mg/dlBorderline 150-199 mg/dlHigh 200-500 mg/dlVery High >500 mg/dlResult invalid if not a fasting specimen. Performed By: #### L IPID ####[address] [id number] T4,Freeon 03-18-2018 T4 free mass conc 1.3 ng/dL Normal 0.8-1.4 [facility] Comment on above: Order Comment: Is th is specimen being sent to an external lab?->No Result Comment: New Reference Ranges - effective 04/13/09. Performed By: #### T 4FR ####[facility] [place], [place] [phone] TSHon 03-18-2018 Thyrotropin Qn 3.766 uIU/mL Normal 0.350-5.500 [facility] Comment on above: Order Comment: Is th is specimen being sent to an external lab?->No Performed By: #### T SH ####[facility] [place] [phone] Progress Noteon 03-17-2018 Front End Engineer Authentication Interface Message Text Alina Malik is a 13 y.o. female patient.Behavioral/Emot ional Assessment w Score - PHQ-9Performed by: DEANN MANUEL AAuthorized by: DEANN MANUEL scanned document.PHQ-9See PHQ9 FlowsheetFeeling down, depressed, irritable or hopeless: Several daysLittle interest or pleasure in doing things: Several daysTrouble falling or staying sleep, or sleeping too much: More than half the daysPoor appetite, weight loss, or overeating: Several daysFeeling tired or having little energy: More than half the daysFeeling bad about yourself - or feeling that you are a failure, or have letyourself or your family down: Several daysTrouble concentrating on things, like school work, reading or watching TV:Several daysMoving or speaking so slowly that other people could have noticed. Or theopposite - being so fidgety or restless that you were moving around a lot morethan usual: Not at allThoughts that you would be better off , or of hurting yourself in some way:Not at allIn the past year have you felt depressed or sad most days, even if you felt OKsometimes?: NoIf you are experiencing any of the problems on this form, how difficult havethese problems made it for you to do your work, take care of things at home orget along with other people?: Somewhat difficultHas there been a time in the past month when you have had serious thoughts aboutending your life?: NoHave you ever, in your whole life, tried to kill yourself or made a suicideattempt?: NoPHQ-9 Manual Score: 9PHQ-9 Total Score: 9Total Score Value: 5-9 MildDepression Screening follow - up plan completed?: YesElectronically signed by: Deann Manuel MD [facility] Front End Engineer Authentication Interface Message Text Patient ID: Alina Malik is a 13 y.o. female. Her chief complaint(s)include: 13 YEAR WELL CHILD and Thyroid ProblemAssessment1. Encounter for routine child health examination without abnormal findings2. Abnormal weight gain3. Overweight4. Fatigue, unspecified type5. Seasonal allergic rhinitis due to pollen6. Exercise counseling7. Encounter for dietary counseling and surveillance8. Need for vaccination9. Mild depressionPlanKiley was seen today for 13 year well child and thyroid problem.Diagnoses and all orders for this visit:Encounter for routine child health examination without abnormal findings- Behavioral/Emotional Assessment w Score - PHQ-9Abnormal weight gain- POCT Blood Glucose- Lipid panel (Clinic Collect)- TSH (Clinic Collect)- T4, free (Clinic Collect)- COMPLETE BLOOD COUNT- VenipunctureOverweight- POCT Blood Glucose- Lipid panel (Clinic Collect)- TSH (Clinic Collect)- T4, free (Clinic Collect)- COMPLETE BLOOD COUNT- VenipunctureFatigue, unspecified type- POCT Blood Glucose- Lipid panel (Clinic Collect)- TSH (Clinic Collect)- T4, free (Clinic Collect)- COMPLETE BLOOD COUNT- VenipunctureSeasonal allergic rhinitis due to pollen- loratadine (CLARITIN) 10 MG tablet; Take 1 Tab (10 mg) by mouth daily- fluticasone (FLONASE) 50 MCG/ACT nasal spray; 1 [place] by Each Nare routedailyExercise counselingEncounter for dietary counseling and surveillanceNeed for vaccination- HPV (Gardasil 9)- Hepatitis A Ped/Adol <= 18y- Meningococcal ACWY (MENACTRA)Mild depressionDiscussed counseling to help with patient's anxiety/mild depression. Will alsoget patient into why weight to help with working on healthy food choices/diet.Patient is not suicidal and does not have a plan to kill herself. In myclinical judgement, she is safe to go home Mother will continue to monitorclosely.Return in about 1 year (around 03/17/2019) for well check, needs copy of vaccinesfor school/daycare.Maribeth Lorenz is accompanied by her parents.13 YEAR WELL CHILDHome:Alina has an adult to turn to for help and is permitted and able to makeindependent decisions. Alina does not eat meals with family (patient eats inher room) and has no home risk identified.Education:Siomara bunn Is in 10th grade and is doing well, is meeting expectations, is gettingalong with peers, earns A's & B's and earns C's.Eating:Alina eats regular meals including fruits and vegetables, eats breakfast, limitsfast food, drinks non-sweetened liquids (in the past but not lately) and has acalcium source.Activities & Sports:She performs at least 1 hour of physical activity daily. She does not have ajob, engages in screen time more than 2 hours daily, does not play team sports,does not participate in music programs and does not participate in clubs.Drugs:She does not use tobacco, does not use drugs and does not use alcohol.Safety:She has a violence free home, has peer relationships free from violence and usesseat belt. She does not use helmet.Sex:Alina is not sexually active. STD screening offered and declined.Suicidality:Siomara bunn has ways to cope with stress, has problems with sleep (some), has anxiety,has mood swings and has a mental health risk identified (some). She does notdisplay self-confidence, has no depression, has no suicidal ideation and has nohomicidal ideation.MenstruationLa st Menstrual Period: 3 weeks ago.(Menarche: age 10)Menstruation: regular periods and minimal crampingOutputUrine and Stool Pattern:Urine and Stool Pattern: Normal stool pattern, no constipation, normal urinepattern, no nocturnal enuresis.Stool Consistency: softSleepSleeping Difficulty: no difficulty sleepingHours of sleep at a time: 6CRAFFT AssessmentHas not used alcohol or other drugs.Has not ridden in a CAR driven by someone (including self) who was high orhad been using alcohol or drugs.ScreeningsPreviou s Vaccine Reactions: No.Tuberculosis Concerns:Negative Tuberculosis Screen Concerns: no exposure to Tb or person with positiveppdHearing Vision Concerns:Patient wears glasses or contact lenses.The caregiver has no concerns about the patient's hearing.The caregiver has no concerns about the patient's vision.Patient is being seen by keyboard specialist or data integrity specialist.Hyperlipide billy Concerns:Negative Hyperlipidemia Screen Concerns: no parent or grandparent with CT anginaperipheral or cerebrovascular disease <55 years and no parent with cholesterol>240mg/dlAdd itional Parental Concerns: Mother has concerns regarding thyroid, anemia.Patient having weight gain and low energy.Primary Care Review of SystemsObjectiveVital Signs 03/17/18 0901BP: 135/83Pulse: 109Weight: (!) 99 kgHeight: 159.4 cmBody mass index is 38.96 kg/m .Physical ExamConstitutional: She appears well. She is active. No distress.overweightHENT :Head: Atraumatic.Right Ear: Tympanic membrane and external ear normal.Left Ear: Tympanic membrane and external ear normal.Nose: Nasal discharge (clear nasal drainage) present.Mouth/Throat: Mucous membranes are moist. Dentition is normal. Oropharynx isclear.Eyes: Conjunctivae and EOM are normal. No strabismus. Pupils are equal, round,and reactive to light.Neck: Normal range of motion. Neck supple. Thyroid normal. No neck adenopathy.Cardiovascul ar: Normal rate, regular rhythm, S1 normal and S2 normal. Pulsesare palpable.No murmur heard.Pulmonary/Chest: Breath sounds normal. No respiratory distress. Exhibits nodeformity.Abdominal: Soft. Bowel sounds are normal. She exhibits no distension and nomass. There is no hepatosplenomegaly. There is no tenderness.Musculoskele benjamin: Normal range of motion. Back: She exhibits no scoliosis.Neurological: She is alert. She has normal strength. She exhibits normal muscletone. Gait normal.Skin: No rash noted. No pallor. Skin is warm.Vitals reviewed: Blood pressure 135/83, pulse 109, height 159.4 cm, weight (!)99 kg. Normal [facility] Culture, urine Bacteria identified Cx Nom (U) Positive [facility] Work Phone: Vital Signs Date Time Vital Sign Value Performing Clinician Facility 07-27-2024 04:39-0500 Body temperature 96.98 [degF] ANDREA CARTER DO [facility] 07-27-2024 04:39-0500 Diastolic Blood Pressure Non-Invasive 79 mm[Hg] ANDREA CARTER DO [facility] 07-27-2024 04:39-0500 Heart rate 109 /min ANDREA CARTER DO [facility] 07-27-2024 04:39-0500 Respiratory rate 18 /min ANDREA CARTER DO [facility] 07-27-2024 04:39-0500 Systolic Blood Pressure Non-Invasive 144 mm[Hg] ANDREA CARTER DO [facility] 07-10-2024 10:05-0500 Body mass index (BMI) [Ratio] 51.96 kg/m2 Joe Christiansen MD Work Phone: [facility] 07-10-2024 10:05-0500 Body temperature 98.8 [degF] Joe Christiansen MD Work Phone: [facility] 07-10-2024 10:05-0500 Body weight 137.3 kg Joe Christiansen MD Work Phone: [facility] 07-10-2024 10:05-0500 Diastolic blood pressure 93 mm[Hg] Joe Christiansen MD Work Phone: [facility] 07-10-2024 10:05-0500 Heart rate 116 /min Joe Christiansen MD Work Phone: [facility] 07-10-2024 10:05-0500 Respiratory rate 20 /min Joe Christiansen MD Work Phone: [facility] 07-10-2024 10:05-0500 SaO2% (BldA) [Mass fraction] 100 % Joe Christiansen MD Work Phone: [facility] 07-10-2024 10:05-0500 Systolic blood pressure 139 mm[Hg] Joe Christiansen MD Work Phone: [facility] 02-18-2024 23:05-0400 Diastolic blood pressure 72 mm[Hg] Rigo Joiner MD Work Phone: [facility] 02-18-2024 23:05-0400 Heart rate 88 /min Rigo Joiner MD Work Phone: [facility] 02-18-2024 23:05-0400 Respiratory rate 16 /min Rigo Joiner MD Work Phone: [facility] 02-18-2024 23:05-0400 SaO2% (BldA) [Mass fraction] 98 % Rigo Joiner MD Work Phone: [facility] 02-18-2024 23:05-0400 Systolic blood pressure 130 mm[Hg] Rigo Joiner MD Work Phone: [facility] 02-18-2024 21:07-0400 Body height 160 cm Rigo Joiner MD Work Phone: [facility] 02-18-2024 21:07-0400 Body mass index (BMI) [Ratio] 49.6 kg/m2 Rigo Joiner MD Work Phone: [facility] 02-18-2024 21:07-0400 Body temperature 98.2 [degF] Rigo Joiner MD Work Phone: [facility] 02-18-2024 21:07-0400 Body weight 127.01 kg Rigo Joiner MD Work Phone: [facility] 02-17-2024 09:01-0400 Blood Pressure Location CLARISSE BRODY MD [facility] 02-17-2024 09:01-0400 Blood Pressure Method CLARISSE BRODY MD [facility] 02-17-2024 09:01-0400 Body temperature 98.24 [degF] CLARISSE BRODY MD [facility] 02-17-2024 09:01-0400 Body weight 129.7 kg CLARISSE BRODY MD [facility] 02-17-2024 09:01-0400 Diastolic Blood Pressure Non-Invasive 71 mm[Hg] CLARISSE BRODY MD [facility] 02-17-2024 09:01-0400 Heart rate 74 /min CLARISSE BRODY MD [facility] 02-17-2024 09:01-0400 Respiratory rate 18 /min CLARISSE BRODY MD [facility] 02-17-2024 09:01-0400 Systolic Blood Pressure Non-Invasive 124 mm[Hg] CLARISSE BRODY MD [facility] 02-17-2024 07:27-0400 Body mass index (BMI) [Ratio] 49.31 kg/m2 Skinny Moore APRN.OVERNIGHT BABYSITTER Work Phone: [facility] 02-17-2024 07:27-0400 Body temperature 98.6 [degF] Skinny Moore APRN.OVERNIGHT BABYSITTER Work Phone: [facility] 02-17-2024 07:27-0400 Body weight 130.3 kg Skinny Moore APRN.OVERNIGHT BABYSITTER Work Phone: [facility] 02-17-2024 07:27-0400 Diastolic blood pressure 82 mm[Hg] Skinny Moore APRN.OVERNIGHT BABYSITTER Work Phone: [facility] 02-17-2024 07:27-0400 Heart rate 104 /min Skinny Moore APRN.OVERNIGHT BABYSITTER Work Phone: [facility] 02-17-2024 07:27-0400 Respiratory rate 16 /min Skinny Moore APRN.OVERNIGHT BABYSITTER Work Phone: [facility] 02-17-2024 07:27-0400 SaO2% (BldA) [Mass fraction] 99 % Skinny Oscar SENIOR MERCHANDISER.OVERNIGHT BABYSITTER Work Phone: [facility] 02-17-2024 07:27-0400 Systolic blood pressure 128 mm[Hg] Skinny Moore SENIOR MERCHANDISER.OVERNIGHT BABYSITTER Work Phone: [facility] 09-02-2023 16:54-0400 Body temperature 98.6 [degF] Siva Jose Rafaelkishanita SENIOR MERCHANDISER.OVERNIGHT BABYSITTER Work Phone: [facility] 09-02-2023 16:54-0400 Body weight 126.8 kg Siva Jose Rafaelkishanita SENIOR MERCHANDISER.OVERNIGHT BABYSITTER Work Phone: [facility] 09-02-2023 16:54-0400 Diastolic blood pressure 98 mm[Hg] Siva Garcianita SENIOR MERCHANDISER.OVERNIGHT BABYSITTER Work Phone: [facility] 09-02-2023 16:54-0400 Heart rate 100 /min Siva Yanick SENIOR MERCHANDISER.OVERNIGHT BABYSITTER Work Phone: [facility] 09-02-2023 16:54-0400 Respiratory rate 21 /min Siva Garcianita SENIOR MERCHANDISER.OVERNIGHT BABYSITTER Work Phone: [facility] 09-02-2023 16:54-0400 SaO2% (BldA) [Mass fraction] 97 % Siva Jose Rafaelkishanita SENIOR MERCHANDISER.OVERNIGHT BABYSITTER Work Phone: [facility] 09-02-2023 16:54-0400 Systolic blood pressure 124 mm[Hg] Siva Jose Rafaelkishanita SENIOR MERCHANDISER.OVERNIGHT BABYSITTER Work Phone: [facility] 08-26-2023 13:32-0500 Body temperature 99.3 [degF] Krislyn Aberegg PA Work Phone: [facility] 08-26-2023 13:32-0500 Body weight 127.01 kg Krislyn Aberegg PA Work Phone: [facility] 08-26-2023 13:32-0500 Diastolic blood pressure 78 mm[Hg] Krislyn Aberegg PA Work Phone: [facility] 08-26-2023 13:32-0500 Heart rate 86 /min Krislyn Aberegg PA Work Phone: [facility] 08-26-2023 13:32-0500 Respiratory rate 18 /min Krislyn Aberegg PA Work Phone: [facility] 08-26-2023 13:32-0500 SaO2% (BldA) [Mass fraction] 98 % Krislyn Aberegg PA Work Phone: [facility] 08-26-2023 13:32-0500 Systolic blood pressure 142 mm[Hg] Gilbertlyvinod eregg PA Work Phone: [facility] 12-14-2022 13:02-0400 Body height 160 cm Tatiana Nieves APRN.OVERNIGHT BABYSITTER Work Phone: [facility] 12-14-2022 13:02-0400 Body weight 122.29 kg Tatiana Nieves APRN.OVERNIGHT BABYSITTER Work Phone: [facility] 12-14-2022 13:02-0400 Diastolic blood pressure 58 mm[Hg] Tatiana Nieves SENIOR MERCHANDISER.OVERNIGHT BABYSITTER Work Phone: [facility] 12-14-2022 13:02-0400 Heart rate 79 /min Tatiana Nieves SENIOR MERCHANDISER.OVERNIGHT BABYSITTER Work Phone: [facility] 12-14-2022 13:02-0400 Systolic blood pressure 107 mm[Hg] Tatiana Nieves SENIOR MERCHANDISER.OVERNIGHT BABYSITTER Work Phone: [facility] 07-09-2022 03:11-0500 Diastolic blood pressure 75 mm[Hg] [facility] Work Phone: 07-09-2022 03:11-0500 Heart rate 65 /min [facility] Work Phone: 07-09-2022 03:11-0500 Respiratory rate 18 /min [facility] Work Phone: 07-09-2022 03:11-0500 SaO2% (BldA) [Mass fraction] 100 % [facility] Work Phone: 07-09-2022 03:11-0500 Systolic blood pressure 122 mm[Hg] [facility] Work Phone: 07-09-2022 00:22-0500 Body height 160.02 cm [facility] Work Phone: 07-09-2022 00:22-0500 Body mass index (BMI) [Percentile] Per age and sex 99.1 % [facility] Work Phone: 07-09-2022 00:22-0500 Body mass index (BMI) [Ratio] 46 kg/m2 [facility] Work Phone: 07-09-2022 00:22-0500 Body temperature 96.5 [degF] [facility] Work Phone: 07-09-2022 00:22-0500 Body weight 117.8 kg [facility] Work Phone: 06-14-2022 10:15-0500 Body height 160 cm Juan Gates MD Work Phone: [facility] 06-14-2022 10:15-0500 Body weight 113.4 kg Juan Gates MD Work Phone: [facility] 05-14-2022 16:23-0500 Body temperature 97.81 [degF] Beth Denbow PA-C Work Phone: [facility] 05-14-2022 16:23-0500 Body weight 114.85 kg Beth Denbow PA-C Work Phone: [facility] 05-14-2022 16:23-0500 Diastolic blood pressure 64 mm[Hg] Beth Denbow PA-C Work Phone: [facility] 05-14-2022 16:23-0500 Heart rate 91 /min Beth Denbow PA-C Work Phone: [facility] 05-14-2022 16:23-0500 Respiratory rate 18 /min Beth Denbow PA-C Work Phone: [facility] 05-14-2022 16:23-0500 SaO2% (BldA) [Mass fraction] 99 % Beth Aguirre PA-C Work Phone: [facility] 05-14-2022 16:23-0500 Systolic blood pressure 106 mm[Hg] Beth Aguirre PA-C Work Phone: [facility] 05-07-2022 23:14-0500 Body height 160.02 cm [facility] Work Phone: 05-07-2022 23:14-0500 Body mass index (BMI) [Percentile] Per age and sex 98.9 % [facility] Work Phone: 05-07-2022 23:14-0500 Body mass index (BMI) [Ratio] 44 kg/m2 [facility] Work Phone: 05-07-2022 23:14-0500 Body temperature 97 [degF] [facility] Work Phone: 05-07-2022 23:14-0500 Body weight 112.7 kg [facility] Work Phone: 05-07-2022 23:14-0500 Diastolic blood pressure 88 mm[Hg] [facility] Work Phone: 05-07-2022 23:14-0500 Heart rate 106 /min [facility] Work Phone: 05-07-2022 23:14-0500 Respiratory rate 20 /min [facility] Work Phone: 05-07-2022 23:14-0500 SaO2% (BldA) [Mass fraction] 100 % [facility] Work Phone: 05-07-2022 23:14-0500 Systolic blood pressure 144 mm[Hg] [facility] Work Phone: 04-09-2022 05:58-0400 Diastolic blood pressure 75 mm[Hg] [facility] Work Phone: 04-09-2022 05:58-0400 Heart rate 89 /min [facility] Work Phone: 04-09-2022 05:58-0400 Respiratory rate 18 /min [facility] Work Phone: 04-09-2022 05:58-0400 SaO2% (BldA) [Mass fraction] 100 % [facility] Work Phone: 04-09-2022 05:58-0400 Systolic blood pressure 122 mm[Hg] [facility] Work Phone: 04-09-2022 04:20-0400 Body mass index (BMI) [Percentile] Per age and sex 98.9 % [facility] Work Phone: 04-09-2022 04:20-0400 Body mass index (BMI) [Ratio] 43.7 kg/m2 [facility] Work Phone: 04-09-2022 04:20-0400 Body temperature 98.5 [degF] [facility] Work Phone: 04-09-2022 04:20-0400 Body weight 111.9 kg [facility] Work Phone: 12-17-2021 03:13-0400 Diastolic blood pressure 90 mm[Hg] Dr. Rukhsana Luz Work Phone: [facility] Work Phone: 12-17-2021 03:13-0400 Heart rate 111 /min Dr. Rukhsana Luz Work Phone: [facility] Work Phone: 12-17-2021 03:13-0400 Respiratory rate 18 /min Dr. Rukhsana Luz Work Phone: [facility] Work Phone: 12-17-2021 03:13-0400 Systolic blood pressure 138 mm[Hg] Dr. Rukhsana Luz Work Phone: [facility] Work Phone: 12-17-2021 02:47-0400 Body height 160.[address] Rukhsana Luz Work Phone: [facility] Work Phone: 12-17-2021 02:47-0400 Body mass index (BMI) [Percentile] Per age and sex 98.7 % Dr. Rukhsana Luz Work Phone: [facility] Work Phone: 12-17-2021 02:47-0400 Body mass index (BMI) [Ratio] 41.1 kg/m2 Dr. Rukhsana Luz Work Phone: [facility] Work Phone: 12-17-2021 02:47-0400 Body temperature 99 [degF] Dr. Rukhsana Luz Work Phone: [facility] Work Phone: 12-17-2021 02:47-0400 Body weight 105.[address] Rukhsana Luz Work Phone: [facility] Work Phone: 12-17-2021 02:47-0400 SaO2% (BldA) [Mass fraction] 97 % Dr. Rukhsana Luz Work Phone: [facility] Work Phone: 12-12-2021 14:11-0400 Respiratory rate 18 /min Dr. Rukhsana Luz Work Phone: [facility] Work Phone: 12-12-2021 13:31-0400 Diastolic blood pressure 60 mm[Hg] Dr. Rukhsana Luz Work Phone: [facility] Work Phone: 12-12-2021 13:31-0400 Heart rate 82 /min Dr. uRkhsana Luz Work Phone: [facility] Work Phone: 12-12-2021 13:31-0400 Respiratory rate 16 /min Dr. Rukhsana Luz Work Phone: [facility] Work Phone: 12-12-2021 13:31-0400 SaO2% (BldA) [Mass fraction] 98 % Dr. Rukhsana Luz Work Phone: [facility] Work Phone: 12-12-2021 13:31-0400 Systolic blood pressure 119 mm[Hg] Dr. Rukhsana Luz Work Phone: [facility] Work Phone: 12-12-2021 10:35-0400 Body height 160.[address] Rukhsana Luz Work Phone: [facility] Work Phone: 12-12-2021 10:35-0400 Body mass index (BMI) [Percentile] Per age and sex 98.7 % Dr. Rukhsana Luz Work Phone: [facility] Work Phone: 12-12-2021 10:35-0400 Body mass index (BMI) [Ratio] 40.4 kg/m2 Dr. Rukhsana Luz Work Phone: [facility] Work Phone: 12-12-2021 10:35-0400 Body temperature 99 [degF] Dr. Rukhsana Luz Work Phone: [facility] Work Phone: 12-12-2021 10:35-0400 Body weight 103.[address] Rukhsana Luz Work Phone: [facility] Work Phone: 10-27-2021 09:52-0400 Body mass index (BMI) [Percentile] Per age and sex 98.7 % Dr. Rukhsana Luz Work Phone: [facility] Work Phone: 10-27-2021 09:52-0400 Body mass index (BMI) [Ratio] 40.6 kg/m2 Dr. Rukhsana Luz Work Phone: [facility] Work Phone: 10-27-2021 09:52-0400 Body temperature 97.2 [degF] Dr. Rukhsana Luz Work Phone: [facility] Work Phone: 10-27-2021 09:52-0400 Body weight 104.[address] Rukhsana Luz Work Phone: [facility] Work Phone: 10-27-2021 09:52-0400 Diastolic blood pressure 84 mm[Hg] Dr. Rukhsana Luz Work Phone: [facility] Work Phone: 10-27-2021 09:52-0400 Heart rate 81 /min Dr. Rukhsana Luz Work Phone: [facility] Work Phone: 10-27-2021 09:52-0400 Respiratory rate 17 /min Dr. Rukhsana Luz Work Phone: [facility] Work Phone: 10-27-2021 09:52-0400 SaO2% (BldA) [Mass fraction] 99 % Dr. Rukhsana Luz Work Phone: [facility] Work Phone: 10-27-2021 09:52-0400 Systolic blood pressure 168 mm[Hg] Dr. Rukhsana Luz Work Phone: [facility] Work Phone: 10-01-2021 03:09-0400 Diastolic blood pressure 87 mm[Hg] [facility] Work Phone: 10-01-2021 03:09-0400 Heart rate 79 /min [facility] Work Phone: 10-01-2021 03:09-0400 Respiratory rate 16 /min [facility] Work Phone: 10-01-2021 03:09-0400 SaO2% (BldA) [Mass fraction] 98 % [facility] Work Phone: 10-01-2021 03:09-0400 Systolic blood pressure 124 mm[Hg] [facility] Work Phone: 10-01-2021 01:18-0400 Body height 160.02 cm [facility] Work Phone: 10-01-2021 01:18-0400 Body mass index (BMI) [Percentile] Per age and sex 98.6 % Dr. Rukhsana Luz Work Phone: [facility] Work Phone: 10-01-2021 01:18-0400 Body mass index (BMI) [Ratio] 39.5 kg/m2 [facility] Work Phone: 10-01-2021 01:18-0400 Body temperature 98.4 [degF] [facility] Work Phone: 10-01-2021 [id number] Body weight 101.2 kg [facility] Work Phone: Encounters Encounter Date Encounter Type Care Provider Facility Start: 11-27-2024 End: 11-27-2024 ambulatory Nikki Olsen [facility] Facility[facility]: [facility] Start: 11-04-20[facility] Start: 10-28-2024 ambulatory Nikki Raúl [facility] Fa cility:[facility] Start: 10-05-2024 End: 10-05-20[facility]: [facility] Start: 09-30-2024 End: 09-30-2024 ambulatory Nikki Raúl [facility] Facility:[facility] Start: 09-14-2024 End: 09-14-2024 Emergency department patient visit Nikki Olsen [facility] Facility:[facility] Start: 09-12-2024 End: 09-12-2024 ambulatory Nikkielizabeth Olsen [facility] Facility:[facility] Start: 09-03-2024 End: 09-03-2024 ambulatory Nikki Raúl VS Facility:[facility] Start: 08-05-2024 End: 08-05-2024 ambulatory Nikki Olsen [facility] Facility:[facility] Start: 07-29-2024 End: 07-29-2024 ambulatory ANDREA CARTER DO Facility:[facility] Start: 07-29-2024 End: 07-29-2024 Patient encounter procedure ANDREA CARTER DO [facility] Start: 07-27-2024 End: 07-27-2024 Emergency department patient visit ANDREA CARTER DO [facility] Start: 07-10-2024 End: 07-10-2024 Emergency department patient visit Arvin Segundo Facility:[facility] Start: 07-10-2024 End: 07-10-2024 ambulatory NIKKI RAÚL Facility:[facility] Start: 07-10-2024 End: 07-10-2024 Office outpatient visit 15 minutes Joe Christiansen MD Work Phone: [facility] Comment on above: Bilateral leg edema (Primary Dx); Tachycardia; SOB (shortness of breath); Nausea Start: 07-08-2024 ambulatory Nikki Olsen [employer] [place] Start: 07-08-2024 End: 07-08-2024 ambulatory Mercedes Cox Facility:[facility] Start: 06-29-2024 End: 06-29-2024 ambulatory Nikki Olsen [facility] Facility:[facility] Start: 06-24-2024 End: 06-24-2024 Emergency department patient visit Tom Villar Facility:[facility] Start: 06-23-2024 End: 06-23-2024 ambulatory Christian ANDERSON [facility] Start: 06-09-2024 End: 06-09-2024 ambulatory Nikki Olsen [facility] Facility:[facility] Start: 05-02-2024 End: 05-03-2024 Emergency department patient visit CARLOTA RODRIGUEZ [facility] Start: 03-30-2024 End: 03-30-2024 Patient encounter procedure Bhavani ANDERSON Work Phone: [facility] Comment on above: Procedure not azeem d out (Primary Dx) Start: 03-30-2024 End: 03-30-2024 ambulatory [facility] Facility:[facility] Start: 03-08-2024 End: 03-08-2024 Emergency department patient visit [facility] Facility:[facility] Start: 02-19-2024 ambulatory Shan Ronn Facility:[facility] Start: 02-19-2024 End: 02-19-2024 ambulatory [facility] Facility:[facility] Start: 02-18-2024 End: 02-18-2024 Subsequent hospital visit by physician [facility] [address] Exam Room [address] [facility] [address] Comment on above: Arrived Start: 02-18-2024 End: 02-18-2024 Emergency department patient visit Rigo Joiner MD Work Phone: [facility] Comment on above: Constipation, unspec ified constipation type (Primary Dx) Start: 02-17-2024 End: 02-17-2024 Emergency department patient visit CLARISSE BRODY MD [facility] Start: 02-17-2024 End: 02-17-2024 ambulatory [facility] Facility:[facility] Start: 02-17-2024 End: 02-17-2024 Patient encounter procedure Skinny Moore APRN.CNP Work Phone: [facility] Comment on above: Urinary frequency (P rimary Dx) Start: 01-23-2024 End: 01-23-2024 ambulatory [facility] Facility:[facility] Start: 01-23-2024 End: 01-23-2024 ambulatory [facility] Facility:[facility] Start: 01-17-2024 ambulatory [facility] Fa cility:[facility] Start: 12-30-2023 End: 12-30-2023 Emergency department patient visit [facility] Facility:[facility] Start: 09-03-2023 Telephone encounter Skinny calvillo SENIOR MERCHANDISER.OVERNIGHT BABYSITTER Work Phone: [facility] Comment on above: Results Start: 09-02-2023 End: 09-02-2023 Office outpatient visit 15 minutes Siva Garcianita SENIOR MERCHANDISER.OVERNIGHT BABYSITTER Work Phone: [facility] Comment on above: Viral illness (Prima ry Dx) Start: 08-30-2023 End: 08-31-2023 Emergency department patient visit [facility] Facility:[facility] Start: 08-29-2023 Emergency department patient visit [facility] Facility:[facility] Start: 08-26-2023 End: 08-26-2023 Patient encounter procedure Bhavani ANDERSON Work Phone: [facility] Comment on above: Headache, unspecifie d headache type (Primary Dx) Start: 12-14-2022 End: 12-14-2022 Patient encounter procedure Tatiana Nieves SENIOR MERCHANDISER.OVERNIGHT BABYSITTER Work Phone: Rheumatology Comment on above: Fibromyalgia (Primar y Dx) Start: 07-09-2022 End: 07-09-2022 Emergency department patient visit [facility] Start: 06-14-2022 End: 06-14-2022 Patient encounter procedure Juan Gates MD Work Phone: Orthopaedics Comment on above: 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) Start: 05-24-2022 ambulatory Pcp (Historical) [facility] Start: 05-14-2022 End: 05-14-2022 Subsequent hospital visit by physician [facility] Work Phone: Radiology Comment on above: Right wrist pain [M2 5.531] Start: 05-14-2022 End: 05-14-2022 Patient encounter procedure Beth Aguirre PA-C Work Phone: [facility] Comment on above: Right wrist pain (Pr imary Dx) Start: 05-07-2022 End: 05-08-2022 Emergency department patient visit [facility] Start: 04-09-2022 End: 04-09-2022 Emergency department patient visit [facility] Start: 12-17-2021 End: 12-17-2021 Emergency department patient visit Dr. Rukhsana Luz Work Phone: [facility] Start: 12-12-2021 End: 12-12-2021 Emergency department patient visit Dr. Rukhsana Luz Work Phone: [facility] Start: 10-27-2021 End: 10-27-[address] Rukhsana Luz Work Phone: [facility] Start: 10-11-2021 End: 10-11-2021 Patient encounter procedure [facility] Start: 10-01-2021 End: 10-01-2021 Emergency department patient visit [facility] Start: 03-17-2018 End: 03-17-2018 Patient encounter DEANN MANUEL [facility] Procedures Date Procedure Procedure Detail Performing Clinician Start: 02-18-2024 Ct abdomen & pelvis w/contrast material Rigo Joiner MD Work Phone: Start: 02-18-2024 Urinalysis complete panel - Urine Rigo Joiner MD Work Phone: Start: 02-18-2024 Urnls dip stick/tabl et rgnt auto w/o microscopy Rigo Joiner MD Work Phone: Start: 02-18-2024 Comprehensive metabo lic panel Rigo Joiner MD Work Phone: Start: 02-17-2024 Urnls dip stick/tabl et rgnt auto w/o microscopy Skinny Moore APRN.OVERNIGHT BABYSITTER Work Phone: Start: 05-14-2022 Radex wrist complete minimum 3 views Beth Aguirre PA-C Work Phone: Start: 05-07-2022 Diagnostic radiograp hy of abdomen Start: 05-07-2022 X-ray of soft tissue of neck Start: 12-12-2021 US scan of gallbladder Dr. Rukhsana Luz Work Phone: Start: 10-11-2021 Ultrasonography of abdomen Start: 10-01-2021 Urine culture Urine culture Dr. Rukhsana morales Work Phone: Plan of Treatment Date Care Activity Detail Author Start: 2063 RSV Immunization age d 60 or older (1 - 1-dose 60+ series) RSV Immunization aged 60 or older (1 - 1-dose 60+ series) [facility] Start: 2053 Zoster Vaccines (1 of 2) Zoste r Vaccines (1 of 2) [facility] Start: 03-18-2025 Urine microalbumin profile DTaP,Tdap,Td Vaccine (7 - Td or Tdap) [facility] Start: 12-02-2024 ambulatory Ambulatory Facility:[facility] Start: 02-23-2024 Covid-19 Vaccine ( season) Covid-19 Vaccine ( season) [facility] Start: 02-23-2024 Influenza vaccination Influenza Vacc ine (#1) [facility] Start: 01-23-2024 Screening for malign ant neoplasm of cervix [facility] Start: 09-02-2023 End: 09-16-2023 COVID & INFLUENZA A/B & RSV NAAT, ROUTINE COVID & INFLUENZA A/B & RSV NAAT, ROUTINE Microbiology Routine Viral illness Expected: 09/02/2023, Expires: 09/16/2023 [facility] Work Phone: Comment on above: Expected: 09/02/2023 , Expires: 09/16/2023 Start: 06-24-2023 Depression Assessment Depression Ass essment [facility] Start: 02-22-2023 COVID-19 Vaccine ( season) COVID-19 Vaccine ( season) [facility] Start: 02-22-2023 Covid-19 Vaccine ( season) Covid-19 Vaccine () [facility] Start: 02-22-2023 Influenza vaccination C [facility] Start: 12-14-2022 End: 02-13-2023 Cyclic citrullinated peptide IgG Ab [Units/volume] in Serum or Plasma [facility] Work Phone: Comment on above: Expected: 12/14/2022 , Expires: 02/13/2023 Start: 12-14-2022 End: 02-13-2023 Erythrocyte sedimentation rate [facility] Work Phone: Comment on above: Expected: 12/14/2022 , Expires: 02/13/2023 Start: 12-14-2022 End: 02-13-2023 Rheumatoid factor [Units/volume] in Serum or Plasma [facility] Work Phone: Comment on above: Expected: 12/14/2022 , Expires: 02/13/2023 Start: 06-24-2022 DEPRESSION ASSESSMENT DEPRESSION ASS ESSMENT [facility] Start: 02-22-2022 Influenza vaccination INFLUENZA (#1) [facility] Start: 2022 DTaP/Tdap/Td Vaccine s (1 - Tdap) DTaP/Tdap/Td Vaccines (1 - Tdap) [facility] Start: 2022 Hepatitis B Vaccines (1 of 3 - 19+ 3-dose series) Hepatitis B Vaccines (1 of 3 - 19+ 3-dose series) [facility] Start: 2022 Urine microalbumin profile DTAP,TDAP,TD (1 - Tdap) [facility] Start: 12-17-2021 [facility] Work Phone: Start: 12-17-2021 Patient discharge [facility] Work Phone: Start: 08-17-2021 COVID-19 VACCINE (4 - Booster for Pfizer series) COVID-19 VACCINE (4 - Booster for Pfizer series) [facility] Start: 06-24-2021 DEPRESSION ASSESSMENT DEPRESSION ASS ESSMENT [facility] Start: 2021 Anxiety Screening Anxiety Screening [facility] Start: 2021 CHLAMYDIA SCREENING (18-24) CHLAMYDIA SCREENING (18-24) [facility] Start: 2021 Depression Screening Depression Scre ening [facility] Start: 2021 GC (GONORRHEA) SCREE DURGA (18-24) GC (GONORRHEA) SCREENING (18-24) [facility] Start: 2021 HEPATITIS C SCREENING HEPATITIS C SC REENING [facility] Start: 2021 Hepatitis C screening Hepatitis C [facility] Start: 2021 HIV SCREENING HIV SCREENING [facility] Start: 2021 HIV screening HIV Screening [facility] Start: 2021 Screening for Chlamy pravin trachomatis Chlamydia Screening (18-24) [facility] Start: 08-07-2020 HPV Vaccine (3 - 3-d ose series) HPV Vaccine (3 - 3-dose series) [facility] Start: 2019 Meningococcal B Vacc ine: Consider Based On Risk (1 of 2 - Patient Seeks Protection) Meningococcal B Vaccine: Consider Based On Risk (1 of 2 - Patient Seeks Protection) [facility] Start: 2018 HPV Vaccines (1 - 3- dose series) HPV Vaccines (1 - 3-dose series) [facility] Start: 2017 PEDS TO ADULT TRANSI TION ANNUAL ASSESSMENT PEDS TO ADULT TRANSITION ANNUAL ASSESSMENT [facility] Start: 01-23-2016 Varicella vaccination Varicell a Vaccines (1 of 2 - 13+ 2-dose series) [facility] Start: 2015 Depression Screening Depression Scre ening [facility] Start: 2015 PEDS TO ADULT TRANSI TION INITIAL DISCUSSION PEDS TO ADULT TRANSITION INITIAL DISCUSSION [facility] Start: 2014 HPV VACCINE (1 - 2-d ose series) HPV VACCINE (1 - 2-dose series) [facility] Start: 2013 MENINGOCOCCAL B: Consider based on risk (1 of 2 - Risk Bexsero 2-dose series) MENINGOCOCCAL B: Consider based on risk (1 of 2 - Risk Bexsero 2-dose series) [facility] Start: 01-23-2012 HPV VACCINE (1 - 2-d ose series) HPV VACCINE (1 - 2-dose series) [facility] Start: 01-23-2004 MMR Vaccines (1 of 1 - Standard series) MMR Vaccines (1 of 1 - Standard series) [facility] Start: 2003 HEPATITIS B (1 of 3 - 3-dose series) HEPATITIS B (1 of 3 - 3-dose series) [facility] Start: 2003 HIV screening HIV Screening [facility] ernesto Bacteria identified in Urine by Culture URINE CULTURE Microbiology Routine Urinary frequency Ordered: 02/17/2024 [facility] Work Phone: Comment on above: Ordered: 02/17/2024 Patient Education [facility] Work Phone: Patient referral [facility] Work Phone: [facility] c Immunizations Immunization Date Immunization Notes Care Provider [facility] 04-06-2020 hepatitis A vaccine, pediatric/adolescent dosage, 2 dose schedule Joe Christiansen MD Work Phone: [facility] 04-06-2020 Human Papillomavirus 9-valent vaccine Joe Christiansen MD Work Phone: [facility] 04-06-2020 influenza, injectabl e, quadrivalent, preservative free Joe Christiansen MD Work Phone: [facility] 04-06-2020 meningococcal polysaccharide (groups A, C, Y and W-135) diphtheria toxoid conjugate vaccine (MCV4P) Joe Christiansen MD Work Phone: [facility] 04-06-2020 influenza virus vacc ine, unspecified formulation Bhavani ANDERSON Work Phone: [facility] 03-30-2020 meningococcal oligosaccharide (groups A, C, Y and W-135) diphtheria toxoid conjugate vaccine (MCV4O) Joe Christiansen MD Work Phone: [facility] 03-17-2018 hepatitis A vaccine, pediatric/adolescent dosage, 2 dose schedule Joe Christiansen MD Work Phone: [facility] 03-17-2018 Human Papillomavirus 9-valent vaccine Joe Christiansen MD Work Phone: [facility] 03-17-2018 meningococcal polysaccharide (groups A, C, Y and W-135) diphtheria toxoid conjugate vaccine (MCV4P) Joe Christiansen MD Work Phone: [facility] 03-18-2015 tetanus toxoid, redu dhruv diphtheria toxoid, and acellular pertussis vaccine, adsorbed Joe Christiansen MD Work Phone: [facility] 03-17-2015 meningococcal oligosaccharide (groups A, C, Y and W-135) diphtheria toxoid conjugate vaccine (MCV4O) Joe Christiansen MD Work Phone: [facility] 03-16-2008 diphtheria, tetanus toxoids and acellular pertussis vaccine Joe Christiansen MD Work Phone: [facility] 03-16-2008 measles, mumps and r ubella virus vaccine Joe Christiansen MD Work Phone: [facility] 03-16-2008 poliovirus vaccine, inactivated Joe Christiansen MD Work Phone: [facility] 03-16-2008 varicella virus vaccine Ashley Christiansen MD Work Phone: [facility] 11-28-2004 diphtheria, tetanus toxoids and acellular pertussis vaccine Joe Christiansen MD Work Phone: [facility] 11-28-2004 pneumococcal conjuga te vaccine, 7 valent Joe Christiansen MD Work Phone: [facility] 11-28-2004 poliovirus vaccine, inactivated Joe Christiansen MD Work Phone: [facility] 11-28-2004 varicella virus vaccine Ashley Christiansen MD Work Phone: [facility] 04-13-2004 haemophilus influenz ae type b conjugate and Hepatitis B vaccine Joe Christiansen MD Work Phone: [facility] 04-13-2004 influenza virus vacc ine, whole virus Joe Christiansen MD Work Phone: [facility] 04-13-2004 measles, mumps and r ubella virus vaccine Joe Christiansen MD Work Phone: [facility] 04-13-2004 pneumococcal conjuga te vaccine, 7 valent Joe Christiansen MD Work Phone: [facility] 2003 diphtheria, tetanus toxoids and acellular pertussis vaccine Joe Christiansen MD Work Phone: [facility] 2003 haemophilus influenz ae type b vaccine, PRP-T conjugate Joe Christiansen MD Work Phone: [facility] 2003 diphtheria, tetanus toxoids and acellular pertussis vaccine Joe Christiansen MD Work Phone: [facility] 2003 haemophilus influenz ae type b vaccine, PRP-T conjugate Joe Christiansen MD Work Phone: [facility] 2003 pneumococcal conjuga te vaccine, 7 valent Joe Christiansen MD Work Phone: [facility] 2003 poliovirus vaccine, inactivated Joe Christiansen MD Work Phone: [facility] 2003 diphtheria, tetanus toxoids and acellular pertussis vaccine Joe Christiansen MD Work Phone: [facility] 2003 haemophilus influenz ae type b conjugate and Hepatitis B vaccine Joe Christiansen MD Work Phone: [facility] 2003 pneumococcal conjuga te vaccine, 7 valent Joe Christiansen MD Work Phone: [facility] 2003 poliovirus vaccine, inactivated Joe Christiansen MD Work Phone: [facility] 2003 hepatitis B vaccine, pediatric or pediatric/adolescent dosage Joe Christiansen MD Work Phone: [facility] Payers Date Payer Category Payer Unknown [id number] 2024 Unknown [id number] 2023 Self-pay [id number] 2023 Unknown [id number] 2022 Medicaid [id number] 2022 Medicaid [id number] 2013 Unknown [id number] 2003 Unknown [id number] 2.16.8 [id number] 2003 Unknown [id number] 2.16.8 40.1.060671.3.579.2.651 2003 Unknown [id number] 2.16.8 40.1.441434.3.579.2.627 2003 Unknown [id number] 2.16.8 40.1.249594.3.579.2.627 Unknown [id number] 2.16.8 40.1.242957.3.579.2.462 Unknown [id number] 2.16.8 40.1.637459.3.579.2.462 Unknown [id number] 2.16.8 40.1.561728.3.579.2.462 Unknown [id number] 2.16.8 40.1.769958.3.579.2.462 Unknown [id number] 2.16.8 40.1.791291.3.579.2.462 Unknown [id number] 2.16.8 40.1.955415.3.579.2.462 Unknown [id number] 2.16.8 40.1.997963.3.579.2.462 Unknown [id number] 2.16.8 40.1.345612.3.579.2.462 Unknown [id number] 2.16.8 40.1.476244.3.579.2.462 Unknown [id number] 2.16.8 40.1.988704.3.579.2.462 Unknown [id number] 2.16.8 40.1.535458.3.579.2.462 Unknown [id number] 2.16.8 40.1.383670.3.579.2.462 Unknown [id number] 2.16.8 40.1.507865.3.579.2.462 Unknown [id number] 2.16.8 40.1.064856.3.579.2.462 Unknown [id number] 2.16.8 40.1.890595.3.579.2.462 Unknown [id number] 2.16.8 40.1.756466.3.579.2.462 Unknown [id number] 2.16.8 40.1.349881.3.579.2.462 Unknown [id number] 2.16.8 40.1.341770.3.579.2.462 Unknown [id number] 2.16.8 40.1.251046.3.579.2.462 Unknown [id number] 2.16.8 40.1.696197.3.579.2.462 Unknown [id number] 2.16.8 40.1.887374.3.579.2.462 Unknown [id number] 2.16.8 40.1.425598.3.579.2.462 Unknown [id number] 2.16.8 40.1.868632.3.579.2.462 Unknown [id number] 2.16.8 40.1.895361.3.579.2.462 Unknown [id number] 2.16.8 40.1.104489.3.579.2.462 Unknown [id number] 2.16.8 40.1.860531.3.579.2.462 Unknown [id number] 2.16.8 40.1.915404.3.579.2.462 Unknown [id number] 2.16.8 40.1.063582.3.579.2.462 Social History Date Type Detail Facility [facility] Work Phone: Start: 10-01-2021 End: 07-09-2022 Tobacco smoking status NHIS Unknown if ever smoked [facility] Work Phone: Start: 2003 Sex Assigned At Female A [facility] Start: 02-28-2022 Tobacco smoking stat us NHIS Never smoked tobacco [facility] Start: 02-28-2022 Tobacco use and exposure Smokeless tobacco non-user [facility] Start: 05-14-2022 End: 07-10-2024 Alcohol intake Lifetime non-drinker (finding) [facility] Start: 2003 Sex Assigned At Not on file [facility] Start: 08-26-2023 End: 08-30-2023 History of Social function [facility] Start: 08-26-2023 End: 08-30-2023 Tobacco use panel [facility] Adult Depression Screening Assessment 2 [facility] Tobacco smoking status [facility] Start: 02-17-2024 Sex Female (finding) [facility] Functional Status Date Assessment Result Facility 07-27-2024 Functional Status ID band on, Allergy Band on, Call device within reach, Bed in low position, Wheels locked, Upper/Half-Length side-rails up, Phone within reach, personal items within reach, Safety level maintained [facility] 02-17-2024 Functional Status ID band on, Allergy Band on, Call device within reach, Bed in low position, Wheels locked, Upper/Half-Length side-rails up, Safety level maintained [facility] Mental Status Date Assessment Result Facility 07-27-2024 Mental Status Oriented x 4 [facility] 02-17-2024 Mental Status Oriented x 4 [facility] 05-15-2022 Cognitive function Level Of Cons ciousness Awake;Alert;Appropriate;Follow s Commands [facility] Work Phone: 12-17-2021 Cognitive function Level Of Cons ciousness Awake;Alert;Appropriate [facility] Work Phone: Clinical Notes 05-14-2022 to 07-29-2024 Note Date & Type Note Facility 07-29-2024 Note Exam Date Time Procedure Performing Provider Status 07/29/24 1:12 PM VL Venous US/Doppler One Leg (for DVT). NEHEMIAS CHURCH MD; Auth (Verified) [facility]02-03-2025 Hospital Discharge instructions Patient Education 07/27/2024 04:48:41 Muscle Strain, Extremity Muscle Strain in the Extremities A muscle strain is a stretching and tearing of muscle fibers. This causes pain, especially when youmove that muscle. There may also be some swelling and bruising. Home care Keep the hurt area raised above heart level to reduce pain and swelling. This is especially important during the first 48 hours. Apply an ice pack over the injured area for 15 to 20 minutes every 3 to 6 hours. You should do thisfor the first 24 to 48 hours. You can make an ice pack by filling a plastic bag that seals at the top with ice cubes and then wrapping it with a thin towel. Be careful not to injure your skin with the ice treatments. Ice should never be applied directly to skin. Continue the use of ice packs for relief of pain and swelling as needed. After 48 hours, apply heat (warm shower or warm bath) for 15 to20 minutes several times a day, or alternate ice and heat. You may use [id number] pain medicine to control pain, unless another medicine was prescribed.If you have chronic liver or kidney disease or ever had a stomach ulcer or gastrointestinal bleeding, talk with your healthcare provider before using these medicines. For leg strains: If crutches have been recommended, don t put full weight on the hurt leg until youcan do so without pain. You can return to sports when you are able to hop and run on the injured leg without pain. Follow-up care Follow up with your healthcare provider, or as advised. When to seek medical advice Call your healthcare provider right away if any of these occur: The toes of the injured leg become swollen, cold, blue, numb, or tingly Pain or swelling increases [phone] [employer]. [address] [place] [address]. All rights reserved. This information is not intended as a substitute for professional medical care. Always follow yourhealthcare professional's instructions. Follow Up Care 07/27/2024 04:25:30 With:NIKKI OLSEN APRN-OVERNIGHT BABYSITTER Address: [address] [place] [phone] When:2-4 days [facility] 02-03-2025 Note Discharge Instructions Thank you for allowing [facility] to assist you with your healthcare needs. The following is importantdischarge information regarding your hospital visit. Diagnosis from Today's Visit Leg pain What to Do Next Instructions from Your Care Team Discharge ED Outpatient Vascular Lab - Ordered -- Test Requested: venous duplex u/s lle, Lower extremity, Left, Test Reason: Pain, Mon-Fri 8am-4:30pm: Call [phone] at 7:30am to schedule a same day appointment for testing. Please be aware there may be a short wait time., Weekend Holiday 8am-6pm:... Post Acute Orders No qualifying data available. You Need to Schedule the Following Appointments Follow Up with NIKKI OLSEN When:Within 2-4 days Where:[address] [place] [address]- [phone] Allergies Wellbutrin Medications Please ask your primary doctor or pharmacist before taking any other medication not listed, including over the counter drugs, herbal medications, vitamins and or supplements as they may interact withyour home medications. Please take this list to your next doctor s visit. Bring all medications you take, including over the counter medications, herbals and other supplements with you to your doctor s visit. Patients and families are reminded to discard old lists and to update any records with all medication providers or retail pharmacies. Education Materials Muscle Strain in the Extremities A muscle strain is a stretching and tearing of muscle fibers. This causes pain, especially when youmove that muscle. There may also be some swelling and bruising. Home care Keep the hurt area raised above heart level to reduce pain and swelling. This is especially important during the first 48 hours. Apply an ice pack over the injured area for 15 to 20 minutes every 3 to 6 hours. You should do thisfor the first 24 to 48 hours. You can make an ice pack by filling a plastic bag that seals at the top with ice cubes and then wrapping it with a thin towel. Be careful not to injure your skin with the ice treatments. Ice should never be applied directly to skin. Continue the use of ice packs for relief of pain and swelling as needed. After 48 hours, apply heat (warm shower or warm bath) for 15 to20 minutes several times a day, or alternate ice and heat. You may use [id number] pain medicine to control pain, unless another medicine was prescribed.If you have chronic liver or kidney disease or ever had a stomach ulcer or gastrointestinal bleeding, talk with your healthcare provider before using these medicines. For leg strains: If crutches have been recommended, don t put full weight on the hurt leg until youcan do so without pain. You can return to sports when you are able to hop and run on the injured leg without pain. Follow-up care Follow up with your healthcare provider, or as advised. When to seek medical advice Call your healthcare provider right away if any of these occur: The toes of the injured leg become swollen, cold, blue, numb, or tingly Pain or swelling increases [phone] [employer]. [address] [place] [address]. All rights reserved. This information is not intended as a substitute for professional medical care. Always follow yourhealthcare professional's instructions. Additional Information VACCINATE! IT SAVES LIVES! Members of the community who have not yet received the COVID-19 vaccine and would like to receive it can visit one of [facility] vaccine clinics. There are many vaccine clinic locations within the [facility]. For locations and available times, please visit www.[email or web address]/. It is important to note that some COVID mobile vaccine clinics are held outdoors and may be canceled in rainy or stormy conditions. To learn more about pediatric vaccinations (ages 5-11), we invite you to visit the [facility] webpage. [email or web address] learn more about the COVID-19 vaccine, we invite you to visit the CDC website for a list of frequently asked questions. https://www.cdc.gov/coronavirus/2019-ncov/vaccines/faq.html [facility] Patient [facility] Access Instructions: Stay connected with your healthcare team and access your personal medical information anytime with the [facility] Patient Portal. If you would like a full copy of your medical records please contact the [facility] Medical Records Department Saturday through Saturday between 8a.m. and 4:30p.m. Please follow the directions below to access the portal: 1.Access the email account you provided upon registration to the [facility].2.Look for an invitation email from [facility].3.Open the email and access the invitation link: Accept Invitation to [employer]4.Fill in the required lizarraga to create your account. Sign into [email or web address] with your username and password that you created in the above steps to stay up to date. You can then view a summary of results, a summary of your visits, and the ability to download your summaries to your computer or send the information securely to a physician. Remember that your healthcare information is confidential, so carefully consider who you will allow to register on the [facility] Patient Portal for access to your information. You can also access the [facility] Patient Portal on the [employer]. Simply click on Health Records under [employer] and then click on the [employer] logo. HOW TO SAFELY DISPOSE OF PRESCRIPTION MEDICATIONS Please use one of the following methods to safely dispose of your unused medications. 1.Use a drug disposal kit: the drug disposal pouch allows you to safely discard your old and unuseddrugs. Ask your nurse to give you one when you are discharged.2.Visit a local take-back location: Many local pharmacies and police departments have programs that collect old and unwanted prescriptiondrugs. Call your local pharmacy or go to http://[employer]/8M2Oz3k to find one close to you.3.Make use of household items: Use cat litter or old coffee grounds to dispose medications if other options arenot available. Mix your drugs with these household products, seal them in an airtight container andthrow it into the garbage. Call [facility]: [phone] to be sure your drugs can be disposed of in this way. Some medicines may require a different approach.4.Never flush your medications down the toilet. IF YOU HAVE BEEN PRESCRIBED AN OPIOIDS FOR PAIN If you have been prescribed an opioid (such as hydrocodone, oxycodone or morphine), it is critical to understand the possible side effects and risks of opioid pain medications. Even when taken as directed, opioids can have several side effects including: Tolerance, meaning you might need to take more of a medication for the same pain relief. Nausea, vomiting and/or constipation. Sleepiness, dizziness, dry mouth, confusion, depression or itching. Physical dependence, meaning you have withdrawal symptoms when a medication is stopped ? this can develop within a few days. KNOW YOUR RESPONSIBILITIES It is important to know exactly how much and how often to take the opioid pain medications you are prescribed. Never take opioids in higher amounts or more often than prescribed. Do not combine opioids with alcohol or other drugs that cause drowsiness, such as benzodiazepines, also known as benzos,including diazepam and alprazolam, muscle relaxants or sleep aids. Never sell or share prescriptionopioids. This is illegal. Store opioids in a secure place and out of reach of others (including children, family, friends and visitors). The last page(s) of this document has been signed and retained as a CHART COPY Signatures Patient Education Materials Muscle Strain, Extremity Medication Leaflets My discharge plan and instructions have been reviewed and explained to me and I,ALINA MALIK understand my current condition and have read and understand these discharge instructions. I have received a written copy of the plan/instructions. If I have questions, I am aware that I should contact my d octor. 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 Author Type: Physician Type: Progress Notes Filed: 07/10/2024 10:41 Note Text: Patient presents with: Nausea: Bilateral leg swelling x4 days HPI: Patient presents for 4 days of increasing leg swelling; left greater than right. She has chronic leg edema but this is significantly worse. She is noticing some shortness of breath and heart racing. Today she has had nausea and vomited once. She did take metoprolol after vomiting. Denies diarrhea, constipation, blood in stool, fever, polyuria, polydipsia, sore throat, nasal congestion, rhinorrhea. She has been gaining weight. Last illness was a few weeks ago. Had initial consult with rheumatology 3d ago and says labs were OK. Primary care at [facility]. PAST MEDICAL HISTORY Diagnosis Date Anxiety state Depression MEDICATIONS: ergocalciferol 50,000 unit capsule (VITAMIN D2, DRISDOL) Take 50,000 Units by mouth one time a week. oxyCODONE-acetaminophen (PERCOCET) 5-325 mg tablet Take 1 tablet by mouth every 8 hours as needed. metoprolol succinate ER (TOPROL XL) 50 mg 24 hr tablet Take 0.5 tablets by mouth every afternoon. FLUoxetine (PROZAC) 20 mg capsule Take 40 mg by mouth once daily. meloxicam (MOBIC) 15 mg tablet Take 1 tablet by mouth once daily. ALLERGIES: ALLERGIES Allergen Reactions Wellbutrin [Bupropi* Rash VITALS: BP 139/93 Pulse 116 Temp 37.1 ?C (98.8 ?F) Resp 20 Wt (!) 137.3 kg (302 lb 11.1 oz) LMP 12/06/2022 (Approximate) SpO2 100% BMI 51.96 kg/m? Last 8 Encounter Wt Readings: Date: Wt: 07/10/2024 137.3 kg (302 lb 11.1 oz) 02/17/2024 130.3 kg (287 lb 4.2 oz) 09/02/2023 126.8 kg (279 lb 8.7 oz) 08/30/2023 127 kg (280 lb) 08/29/2023 127 kg (280 lb) 08/26/2023 127 kg (280 lb) 12/14/2022 122.3 kg (269 lb 9.6 oz) (>99%, Z= 2.67)* 06/14/2022 113.4 kg (250 lb) (>99%, Z= 2.50)* Last 8 Encounter Pulse Readings: Date: Pulse: 07/10/2024 116 02/17/2024 104 09/02/2023 100 08/30/2023 96 08/29/2023 85 08/26/2023 86 12/14/2022 79 05/14/2022 91 PHYSICAL EXAM: GEN: pleasant, no acute distress, alert, ambulates comfortably. HEENT: PERRL, EOMI, MMM NECK: supple, no lymphadenopathy, no thyromegaly HEART: borderline fast rate, regular rhythm, no murmurs LUNGS: clear to auscultation, no wheezes or crackles, no increased WOB ABD: soft, non-distended, no masses palpated, diffusely tender EXT: no clubbing, no cyanosis, bilateral lymphedema ASSESSMENT/PLAN: 1. Bilateral leg edema - ICD9: 782.3, ICD10: R60.0 (primary diagnosis) 2. Tachycardia - ICD9: 785.0, ICD10: R00.0 3. SOB (shortness of breath) - ICD9: 786.05, ICD10: R06.02 4. Nausea - ICD9: 787.02, ICD10: R11.0 Patient is concerned about blood clot in her legs. She has tachycardia, mild dyspnea, and weight gain. I recommended ER evaluation. It is unclear if nausea and vomiting are related. She declines EMS transfer and will to to [facility] ED. Joe Christiansen, [facility]01-17-2025 History of Present illness Narrative* Joe Christiansen MD - 07/10/2024 10:09 AM EST Patient presents with: Nausea: Bilateral leg swelling x4 days HPI: Patient presents for 4 days of increasing leg swelling; left greater than right. She has chronic leg edema but this is significantly worse. She is noticing some shortness of breath and heart racing. Today she has had nausea and vomited once. She did take metoprolol after vomiting. Denies diarrhea, constipation, blood in stool, fever, polyuria, polydipsia, sore throat, nasal congestion, rhinorrhea. She has been gaining weight. Last illness was a few weeks ago. Had initial consult with rheumatology 3d ago and says labs were OK. Primary care at [facility]. PAST MEDICAL HISTORY Diagnosis Date Anxiety state Depression MEDICATIONS: ergocalciferol 50,000 unit capsule (VITAMIN D2, DRISDOL) Take 50,000 Units by mouth one time a week. oxyCODONE-acetaminophen (PERCOCET) 5-325 mg tablet Take 1 tablet by mouth every 8 hours as needed. metoprolol succinate ER (TOPROL XL) 50 mg 24 hr tablet Take 0.5 tablets by mouth every afternoon. FLUoxetine (PROZAC) 20 mg capsule Take 40 mg by mouth once daily. meloxicam (MOBIC) 15 mg tablet Take 1 tablet by mouth once daily. ALLERGIES: ALLERGIES Allergen Reactions Wellbutrin [Bupropi* Rash VITALS: BP 139/93 Pulse 116 Temp 37.1 C (98.8 F) Resp 20 Wt (!) 137.3 kg (302 lb 11.1 oz) LMP 12/06/2022 (Approximate) SpO2 100% BMI 51.96 kg/m Last 8 Encounter Wt Readings: Date: Wt: 07/10/2024 137.3 kg (302 lb 11.1 oz) 02/17/2024 130.3 kg (287 lb 4.2 oz) 09/02/2023 126.8 kg (279 lb 8.7 oz) 08/30/2023 127 kg (280 lb) 08/29/2023 127 kg (280 lb) 08/26/2023 127 kg (280 lb) 12/14/2022 122.3 kg (269 lb 9.6 oz) (>99%, Z= 2.67)* 06/14/2022 113.4 kg (250 lb) (>99%, Z= 2.50)* Last 8 Encounter Pulse Readings: Date: Pulse: 07/10/2024 116 02/17/2024 104 09/02/2023 100 08/30/2023 96 08/29/2023 85 08/26/2023 86 12/14/2022 79 05/14/2022 91 PHYSICAL EXAM: GEN: pleasant, no acute distress, alert, ambulates comfortably. HEENT: PERRL, EOMI, MMM NECK: supple, no lymphadenopathy, no thyromegaly HEART: borderline fast rate, regular rhythm, no murmurs LUNGS: clear to auscultation, no wheezes or crackles, no increased WOB ABD: soft, non-distended, no masses palpated, diffusely tender EXT: no clubbing, no cyanosis, bilateral lymphedema ASSESSMENT/PLAN: 1. Bilateral leg edema - ICD9: 782.3, ICD10: R60.0 (primary diagnosis) 2. Tachycardia - ICD9: 785.0, ICD10: R00.0 3. SOB (shortness of breath) - ICD9: 786.05, ICD10: R06.02 4. Nausea - ICD9: 787.02, ICD10: R11.0 Patient is concerned about blood clot in her legs. She has tachycardia, mild dyspnea, and weight gain. I recommended ER evaluation. It is unclear if nausea and vomiting are related. She declines EMS transfer and will to to [facility] ED. Joe Christiansen MD [facility] NoteDischarge Instructions Discharge Summary [address] [place] [address] [id number] 05/02/2024 Patient: ALINA MALIK Sex: Female : 2005 Age: 19y Thank you for visiting [facility]. You have been evaluated today by Carlota Chow D.O. for the following condition(s): Principal Diagnosis Chronic upper extremity pain involving the left forearm. Neuropathy. INSTRUCTIONS Limit lifting. No strenuous activity. Warnings: GENERAL WARNINGS: Return or contact your physician immediately if your condition worsens or changes unexpectedly, if not improving as expected, or if other problems arise. Prescription Medications: prednisone 20 mg tablet: Take 1 tablet by mouth twice a day for 5 days, dispense 10 tablet. Refills0. Pharmacy: [id number] [address] [place] [address]. ketorolac 10 mg tablet: Take 1 tablet by mouth every eight hours as needed for pain for 5 days, dispense 15 tablet. Refills 0. Pharmacy: [facility] [id number] [place] [address]. Understanding of the discharge instructions verbalized by patient. 1 of 4 Discharge Instructions Follow-up with: Ramona James DNP, SENIOR MERCHANDISER, NON LINEAR EDITOR-C, [facility], [facility], Phone: [phone], [address] [facility] [address] [facility], [place] [address]. Follow up in five days even if well. Call for an appointment. Reason for referral: evaluation and treatment. Summary of care provided topatient. 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 [address] [id number] 05/02/2024 Patient: ALINA MALIK Sex: Female : 2005 Age: 19y Thank you for visiting [facility]. You have been evaluated today by Carlota Chow D.O. for the following condition(s): Principal Diagnosis Chronic upper extremity pain involving the left forearm. Neuropathy. INSTRUCTIONS Limit lifting. No strenuous activity. Warnings: GENERAL WARNINGS: Return or contact your physician immediately if your condition worsens or changes unexpectedly, if not improving as expected, or if other problems arise. 2 of 4 Discharge Instructions Prescription Medications: prednisone 20 mg tablet: Take 1 tablet by mouth twice a day for 5 days, dispense 10 tablet. Refills0. Pharmacy: [facility] [id number] [place] [address]. ketorolac 10 mg tablet: Take 1 tablet by mouth every eight hours as needed for pain for 5 days, dispense 15 tablet. Refills 0. Pharmacy: [facility] [id number] [place] [address]. Understanding of the discharge instructions verbalized by patient. Follow-up with: Ramona James, ROJELIO, SENIOR MERCHANDISER, NON LINEAR EDITOR-C, [facility], [facility], [facility], Phone: [phone], [address] [facility] [address], [place] [address]. Follow up in five days even if well. Call for an appointment. Reason for referral: evaluation and treatment. Summary of care provided topatient. ADDITIONAL INFORMATION Peripheral Neuropathy Peripheral neuropathy is the result of damage to the peripheral nerves. It usually affects the armsor legs, and causes a change in physical feeling. Sometimes it causes weakness in the muscles. You may feel tingling, numbness or shooting pains. Symptoms may be more common at night. Skin may be extra sensitive to light touch or temperature changes. Neuropathy may be caused by a complication of a chronic disease such as diabetes, virus or bacterial infections, or physical injury. A ruptured disk with pressure on the spinal nerve may also lead to the problem.Certain vitamin deficiencies may also lead to it. It may also be caused by exposure to certain drugs or chemicals. Home care Tell the healthcare provider about all medicines you take. This includes prescription and uhca-kps-qtsbhar medicines, vitamins, and herbs. Ask if any of the medicines may be causing your problems. Don't make any changes to prescription medicines without talking to your healthcare provider first. You may be prescribed medicines to help relieve the tingling feeling or for pain. Take all medicines as directed. 3 of 4 Discharge Instructions A numb hand or foot may be more prone to injury. To help protect it: o Always use oven mitts. o Test water with an unaffected hand or foot. o Use caution when trimming nails. File sharp areas. o Wear shoes that fit well to avoid pressure points, blisters, and ulcers. o Inspect your hands and feet carefully (including the soles of your feet and between your toes) at least once a we (more content not included)...[facility] 03-30-2024 NoteHNO ID: [id number] Author: BHAVANI CROSS PA Service: ? Author Type: Physician Paraffiner Type: Progress Notes Filed: 03/30/2024 17:10 Note Text: 19-year-old female presents for shakiness, lightheadedness starting today. Patient was working at the [employer] and she started to feel hot and shaky. She states she had to sit down on the floor because she felt lightheaded and dizzy. She feels shaky. No chest pain or shortness of breath. Has not been sick recently. No vomiting or diarrhea. Denies this ever occurring in the past. Patient has stable gait, normal speech. At this time, due to dizziness/lightheadedness, patient be referred to the emergency room. Patient refuses EMS, will take herself.[facility]10-07-2024 History of Present illness Narrative* Bhavani Cross PA - 03/30/2024 5:09 PM EDT 19-year-old female presents for shakiness, lightheadedness starting today. Patient was working at the [employer] and she started to feel hot and shaky. She states she had to sit down on the floor because she felt lightheaded and dizzy. She feels shaky. No chest pain or shortness of breath. Has not been sick recently. No vomiting or diarrhea. Denies this ever occurring in the past. Patient has stable gait, normal speech. At this time, due to dizziness/lightheadedness, patient be referred to the emergency room. Patient refuses EMS, will take herself. documented in [facility]Mer[facility]-28-[facility] Note. MICRO - Microbiology PROCEDURE: Urine Culture [*1] SOURCE: Urine, Clean Catch BODY SITE: COLLECTED DATE/TIME: 02/17/2024 09:23 EDT RECEIVED DATE/TIME: 02/18/2024 16:22 EDT START DATE/TIME: 02/18/2024 16:22 EDT FREE TEXT SOURCE: FINAL REPORTS Final Report [] Verified Date/Time/Personnel: 02/19/2024 14:35 EDT <10,000 cfu/ml. No Significant growth. Sensitivity not indicated. Performing Locations *1: This test was performed at: [address], [facility] , Count includes the [facility]02-18-2024 Emergency department Note* Candelaria Gerard RN - 02/18/2024 11:05 PM EDT Pt given discharge instructions and verbalized understanding. Pt is alert and oriented X4. IV removed intact. Pt is ambulatory to the [facility]. No concerns at this time. Candelaria Gerard RN 02/18/242305 [id number]* Candelaria Gerard RN - 02/18/2024 11:05 PM EDT Pt given discharge instructions and verbalized understanding. Pt is alert and oriented X4. IV removed intact. Pt is ambulatory to the lobby. No concerns at this time. Candelaria Gerard RN 02/18/242305 * Candelaria Gerard RN - 02/18/2024 9:[address] Joiner at pt bedside. Candelaria Gerard RN 02/18/[id number] * Rigo Joiner MD - 02/18/2024 9:00 PM EDT EMERGENCY DEPARTMENT ENCOUNTER Pt Name: Alina Malik Birthdate 2005 Date of evaluation: 02/18/2024 ED Provider: Rigo Joiner MD CHIEF COMPLAINT Chief Complaint Patient presents with Abdominal Pain Pt states she was seen yesterday for same at [facility] and was told she had a uti and discharged. Pt states today the pain has worsened in her RLQ around to her back 10 & sharp/cramping in nature. HISTORY OF PRESENT ILLNESS I wore appropriate PPE for the entirety of this encounter. HPI Alina Malik is a 19 y.o. female who presents to the emergency department complaining of abdominal pain. This began yesterday. It became worse today. She describes it as in the very low right lower quadrant. There is been nausea but no emesis. She complains of frequency of urination also. She has an IUD in place. She does not recall her last menses. She is G2, P1 Ab1. She has had an ectopic . She has had a cholecystectomy. Nursing Notes were reviewed. Limitations to history: None Outside historians: None REVIEW OF SYSTEMS Review of Systems Constitutional: Negative for chills and fever. HENT: Negative for ear pain and sore throat. Eyes: Negative for pain and visual disturbance. Respiratory: Negative for cough and shortness of breath. Cardiovascular: Negative for chest pain and palpitations. Gastrointestinal: Positive for abdominal pain and nausea. Negative for vomiting. Genitourinary: Positive for dysuria and frequency. Negative for hematuria. Musculoskeletal: Negative for arthralgias and back pain. Skin: Negative for color change and rash. Neurological: Negative for seizures and syncope. All other systems reviewed and are negative. PAST MEDICAL HISTORY No past medical history on file. SURGICAL HISTORY No past surgical history on file. CURRENT MEDICATIONS Previous Medications No medications on file ALLERGIES Wellbutrin [bupropion] FAMILY HISTORY No family history on file. SOCIAL HISTORY Social History Socioeconomic History Marital status: Single Social Determinants of Health Received from [employer] Food Insecurities Received from [employer] Transportation Received from [employer] Interpersonal Safety Received from [employer] Housing/Utilities SCREENINGS PHYSICAL EXAM ED Triage Vitals [02/18/24 2107] Temp Heart Rate Resp BP 36.8 C (98.2 F) 99 20 131/77 SpO2 Temp Source Heart Rate Source Patient Position 97 % Oral Monitor -- BP Location FiO2 (%) Right arm -- Physical Exam Vitals and nursing note reviewed. Constitutional: General: She is not in acute distress. Appearance: She is well-developed. Comments: The patient is a young female, obese, found lying on a cart. She is alert and oriented. HENT: Head: Normocephalic and atraumatic. Eyes: Conjunctiva/sclera: Conjunctivae normal. Cardiovascular: Rate and Rhythm: Normal rate and regular rhythm. Heart sounds: No murmur heard. Pulmonary: Effort: Pulmonary effort is normal. No respiratory distress. Breath sounds: Normal breath sounds. Abdominal: Palpations: Abdomen is soft. Tenderness: There is abdominal tenderness in the right lower quadrant. Musculoskeletal: General: No swelling. Cervical back: Neck supple. Skin: General: Skin is warm and dry. Capillary Refill: Capillary refill takes less than 2 seconds. Neurological: Mental Status: She is alert. Psychiatric: Mood and Affect: Mood normal. DIAGNOSTIC RESULTS RADIOLOGY (Per Emergency Physician): Interpretation per the Radiologist below, if available at the time of this note: CT abdomen pelvis w contrast Final Result 1. Constipation. Report Dictated on Electronically Signed By: Andrew Ott MD Electronically Signed Date/Time: 02/18/2024 10:48 PM EDT EKG Interpretation: LABS: Labs Reviewed CBC WITH AUTO DIFFERENTIAL - Abnormal Result Value Auto WBC 15.1 (*) RBC 4.77 Hemoglobin 13.2 Hematocrit 38.9 MCV 81.6 MCH 27.7 MCHC 33.9 RDW 14.5 Platelets 341 MPV 9.1 nRBC 0.0 Neutrophils Relative 60.8 Lymphocytes Relative 32.1 Monocytes Relative 3.4 (*) Eosinophils Relative 2.8 Basophils Relative 0.5 Immature Grans % 0.4 Neutrophils Absolute 9.2 (*) Lymphocytes Absolute 4.9 (*) Monocytes Absolute 0.5 Eosinophils Absolute 0.4 Basophils Absolute 0.1 Immature Grans Absolute 0.1 (*) COMPREHENSIVE METABOLIC PANEL - Abnormal SODIUM 137 POTASSIUM 3.6 CHLORIDE 105 CARBON DIOXIDE 23 ANION GAP 8 UREA NITROGEN 13 CREATININE 0.56 GLUCOSE 116 (*) CALCIUM 9.3 AST (SGOT) 26 ALT 16 ALKALINE PHOSPHATASE 115 ALBUMIN 4.4 BILIRUBIN, TOTAL 0.6 TOTAL PROTEIN 7.6 eGFR >90.0 COMPLETE URINALYSIS - Abnormal Color, Urine Light Yellow Clarity, Urine Clear pH, Urine 7.0 Leukocytes, Urine Negative Nitrite, Urine Negative Protein, Urine Negative Glucose, Urine Normal Bilirubin, Urine Negative Ketones, Urine Negative Urobilinogen, Urine 2 (*) Blood, Urine Negative SPECIFIC GRAVITY OF URINE (NUMERIC) 1.022 COMPLETE URINALYSIS WITH REFLEX TO CULTURE Narrative: The following orders were created for panel order Urinalysis complete with reflex to Culture. Procedure Abnormality Status --------- ------ Complete Urinalysis[[id number]] Abnormal Final result Please view results for these tests on the individual orders. HCG QUALITATIVE URINE HCG,URINE QUAL Negative Narrative: is the most common reason for HCG in urine, although choriocarcinoma, hydatidiform mole, and certain nontrophoblastic malignancies also result in detectable urinary HCG levels. Sensitivity = 20mIU/mL. All other labs were within normal range or not returned as of this dictation. EMERGENCY DEPARTMENT COURSE and DIFFERENTIAL DIAGNOSIS/MDM: Vitals: Vitals: 02/18/24 2107 02/18/242108 BP: 131/77 BP Location: Right arm Pulse: 99 Resp: 20 Temp: 36.8 C (98.2 F) TempSrc: Oral SpO2: 97% 100% Weight: 127 kg (280 lb) Height: 1.6 m (5' 3) Medications Administered in the ED: Medications sodium chloride 0.9 % bolus 1,000 mL (1,000 mL IntraVENous New Bag 02/18/242120) HYDROmorphone (Dilaudid) injection 0.5 mg (0.5 mg IntraVENous Given 02/18/242120) ondansetron (Zofran) injection 4 mg (4 mg IntraVENous Given 02/18/242120) I Rigo Joiner MD am the outpatient psychiatrist of record. PROCEDURES: Unless otherwise noted below, none Procedures Differential Diagnosis Considerations: Differential diagnosis includes urinary tract infection, pyelonephritis, kidney stone, , ectopic . ED testing and evaluation will be obtained to help differentiate these diagnostic possibilities anddetermine the most likely cause. Sources of History: I evaluated other historical sources including previous outpatient records and admission records. ED Course: In the emergency department I initially evaluated the patient with a history and physical examination in order to determine diagnostic testing and therapeutic care. On the basis of this history and physical examination the patient was given intravenous fluid hydration along with pain medication. Laboratory work will be obtained including urinalysis and test. CAT scan of the abdomen and pelvis will be obtained. Reassessment: Laboratory work returns within normal limits. The CAT scan demonstrates constipation. The appendix appears to be normal. The patient will subsequently be discharged with instructions to return to theemergency department if symptoms change or worsen. Consideration of Admission/Observation: I considered admission for this patient, however, at this time the patient appears to be stable. I do not believe that the patient would benefit from admission at this time. I believe the patient canfollow-up with the primary care physician. The patient is advised to return to the emergency department if symptoms change or worsen where admission may need to be considered at a another time. Independent Interpretation of Tests: I independently evaluated the results of the patient's diagnostic testing in the context of the patient's presentation. Diagnostic Tests Considered but not Performed: All testing necessary in the evaluation of this patient are being obtained. At this time at night we do not have the capability of pelvic ultrasound. Prescription Medications Considered but not Prescribed: The patient was given intravenous pain medication as well as medication for nausea. Chronic Conditions Affecting Care: None FINAL IMPRESSION 1. Constipation, unspecified constipation type DISPOSITION Discharge 02/18/2024 10:51:20 PM PATIENT REFERRED TO: [facility] ED [address] [facility] [id number] As needed DISCHARGE MEDICATIONS: New Prescriptions POLYETHYLENE GLYCOL, PEG, 3350 (MIRALAX) 17 G PACKET Take 17 g by mouth daily for 7 days. (Comment: Please note this report has been produced using speech recognition software and may contain errors related to that system including errors in grammar, punctuation, and spelling, as well as words and phrases that may be inappropriate. If there are any questions or concerns please feel freeto contact the dictating provider for clarification.) Rigo Joiner MD (electronically signed) Emergency Medicine Provider Rigo Joiner MD 02/18/24 0349 documented in this [place] [id number] Hospital Discharge instructions* Discharge Instructions* Rigo Joiner MD - 02/18/2024 10:52 PM EDT Fortunately all the tests are negative. The CAT scan demonstrates a normal- appearing appendix and no other abnormalities are noted other than significant constipation. Take MiraLAX daily for the nextweek. Return to the emergency department if symptoms change or worsen. * Attachments The following attachments cannot be sent through Care Everywhere. * Constipation Discharge Instructions, Adult (Georgian) documented in this [place] [id number] Emergency department Note* Candelaria Gerard RN - 02/18/2024 9:[address] Joiner at pt bedside. Candelaria Gerard RN 02/18/242108 [id number] Physician Emergency department Note* Rigo Joiner MD - 02/18/2024 9:00 PM EDT EMERGENCY DEPARTMENT ENCOUNTER Pt Name: Alina Malik Birthdate 2005 Date of evaluation: 02/18/2024 ED Provider: Rigo Joiner MD CHIEF COMPLAINT Chief Complaint Patient presents with Abdominal Pain Pt states she was seen yesterday for same at [facility] and was told she had a uti and discharged. Pt states today the pain has worsened in her RLQ around to her back 6/10 & sharp/cramping in nature. HISTORY OF PRESENT ILLNESS I wore appropriate PPE for the entirety of this encounter. HPI Alina Malik is a 19 y.o. female who presents to the emergency department complaining of abdominal pain. This began yesterday. It became worse today. She describes it as in the very low right lower quadrant. There is been nausea but no emesis. She complains of frequency of urination also. She has an IUD in place. She does not recall her last menses. She is G2, P1 Ab1. She has had an ectopic . She has had a cholecystectomy. Nursing Notes were reviewed. Limitations to history: None Outside historians: None REVIEW OF SYSTEMS Review of Systems Constitutional: Negative for chills and fever. HENT: Negative for ear pain and sore throat. Eyes: Negative for pain and visual disturbance. Respiratory: Negative for cough and shortness of breath. Cardiovascular: Negative for chest pain and palpitations. Gastrointestinal: Positive for abdominal pain and nausea. Negative for vomiting. Genitourinary: Positive for dysuria and frequency. Negative for hematuria. Musculoskeletal: Negative for arthralgias and back pain. Skin: Negative for color change and rash. Neurological: Negative for seizures and syncope. All other systems reviewed and are negative. PAST MEDICAL HISTORY No past medical history on file. SURGICAL HISTORY No past surgical history on file. CURRENT MEDICATIONS Previous Medications No medications on file ALLERGIES Wellbutrin [bupropion] FAMILY HISTORY No family history on file. SOCIAL HISTORY Social History Socioeconomic History Marital status: Single Social Determinants of Health Received from [employer] Food Insecurities Received from [employer] Transportation Received from [employer] Interpersonal Safety Received from [employer] Housing/Utilities SCREENINGS PHYSICAL EXAM ED Triage Vitals [02/18/24 2107] Temp Heart Rate Resp BP 36.8 C (98.2 F) 99 20 131/77 SpO2 Temp Source Heart Rate Source Patient Position 97 % Oral Monitor -- BP Location FiO2 (%) Right arm -- Physical Exam Vitals and nursing note reviewed. Constitutional: General: She is not in acute distress. Appearance: She is well-developed. Comments: The patient is a young female, obese, found lying on a cart. She is alert and oriented. HENT: Head: Normocephalic and atraumatic. Eyes: Conjunctiva/sclera: Conjunctivae normal. Cardiovascular: Rate and Rhythm: Normal rate and regular rhythm. Heart sounds: No murmur heard. Pulmonary: Effort: Pulmonary effort is normal. No respiratory distress. Breath sounds: Normal breath sounds. Abdominal: Palpations: Abdomen is soft. Tenderness: There is abdominal tenderness in the right lower quadrant. Musculoskeletal: General: No swelling. Cervical back: Neck supple. Skin: General: Skin is warm and dry. Capillary Refill: Capillary refill takes less than 2 seconds. Neurological: Mental Status: She is alert. Psychiatric: Mood and Affect: Mood normal. DIAGNOSTIC RESULTS RADIOLOGY (Per Emergency Physician): Interpretation per the Radiologist below, if available at the time of this note: CT abdomen pelvis w contrast Final Result 1. Constipation. Report Dictated on Electronically Signed By: Andrew Ott MD Electronically Signed Date/Time: 02/18/2024 10:48 PM EDT EKG Interpretation: LABS: Labs Reviewed CBC WITH AUTO DIFFERENTIAL - Abnormal Result Value Auto WBC 15.1 (*) RBC 4.77 Hemoglobin 13.2 Hematocrit 38.9 MCV 81.6 MCH 27.7 MCHC 33.9 RDW 14.5 Platelets 341 MPV 9.1 nRBC 0.0 Neutrophils Relative 60.8 Lymphocytes Relative 32.1 Monocytes Relative 3.4 (*) Eosinophils Relative 2.8 Basophils Relative 0.5 Immature Grans % 0.4 Neutrophils Absolute 9.2 (*) Lymphocytes Absolute 4.9 (*) Monocytes Absolute 0.5 Eosinophils Absolute 0.4 Basophils Absolute 0.1 Immature Grans Absolute 0.1 (*) COMPREHENSIVE METABOLIC PANEL - Abnormal SODIUM 137 POTASSIUM 3.6 CHLORIDE 105 CARBON DIOXIDE 23 ANION GAP 8 UREA NITROGEN 13 CREATININE 0.56 GLUCOSE 116 (*) CALCIUM 9.3 AST (SGOT) 26 ALT 16 ALKALINE PHOSPHATASE 115 ALBUMIN 4.4 BILIRUBIN, TOTAL 0.6 TOTAL PROTEIN 7.6 eGFR >90.0 COMPLETE URINALYSIS - Abnormal Color, Urine Light Yellow Clarity, Urine Clear pH, Urine 7.0 Leukocytes, Urine Negative Nitrite, Urine Negative Protein, Urine Negative Glucose, Urine Normal Bilirubin, Urine Negative Ketones, Urine Negative Urobilinogen, Urine 2 (*) Blood, Urine Negative SPECIFIC GRAVITY OF URINE (NUMERIC) 1.022 COMPLETE URINALYSIS WITH REFLEX TO CULTURE Narrative: The following orders were created for panel order Urinalysis complete with reflex to Culture. Procedure Abnormality Status --------- ------ Complete Urinalysis[[id number]] Abnormal Final result Please view results for these tests on the individual orders. HCG QUALITATIVE URINE HCG,URINE QUAL Negative Narrative: is the most common reason for HCG in urine, although choriocarcinoma, hydatidiform mole, and certain nontrophoblastic malignancies also result in detectable urinary HCG levels. Sensitivity = 20mIU/mL. All other labs were within normal range or not returned as of this dictation. EMERGENCY DEPARTMENT COURSE and DIFFERENTIAL DIAGNOSIS/MDM: Vitals: Vitals: 02/18/24 2107 02/18/24 210 BP: 131/77 BP Location: Right arm Pulse: 99 Resp: 20 Temp: 36.8 C (98.2 F) TempSrc: Oral SpO2: 97% 100% Weight: 127 kg (280 lb) Height: 1.6 m (5' 3) Medications Administered in the ED: Medications sodium chloride 0.9 % bolus 1,000 mL (1,000 mL IntraVENous New Bag 02/18/242120) HYDROmorphone (Dilaudid) injection 0.5 mg (0.5 mg IntraVENous Given 02/18/242120) ondansetron (Zofran) injection 4 mg (4 mg IntraVENous Given 02/18/242120) I Rigo Joiner MD am the outpatient psychiatrist of record. PROCEDURES: Unless otherwise noted below, none Procedures Differential Diagnosis Considerations: Differential diagnosis includes urinary tract infection, pyelonephritis, kidney stone, , ectopic . ED testing and evaluation will be obtained to help differentiate these diagnostic possibilities anddetermine the most likely cause. Sources of History: I evaluated other historical sources including previous outpatient records and admission records. ED Course: In the emergency department I initially evaluated the patient with a history and physical examination in order to determine diagnostic testing and therapeutic care. On the basis of this history and physical examination the patient was given intravenous fluid hydration along with pain medication. Laboratory work will be obtained including urinalysis and test. CAT scan of the abdomen and pelvis will be obtained. Reassessment: Laboratory work returns within normal limits. The CAT scan demonstrates constipation. The appendix appears to be normal. The patient will subsequently be discharged with instructions to return to theemergency department if symptoms change or worsen. Consideration of Admission/Observation: I considered admission for this patient, however, at this time the patient appears to be stable. I do not believe that the patient would benefit from admission at this time. I believe the patient canfollow-up with the primary care physician. The patient is advised to return to the emergency department if symptoms change or worsen where admission may need to be considered at a another time. Independent Interpretation of Tests: I independently evaluated the results of the patient's diagnostic testing in the context of the patient's presentation. Diagnostic Tests Considered but not Performed: All testing necessary in the evaluation of this patient are being obtained. At this time at night we do not have the capability of pelvic ultrasound. Prescription Medications Considered but not Prescribed: The patient was given intravenous pain medication as well as medication for nausea. Chronic Conditions Affecting Care: None FINAL IMPRESSION 1. Constipation, unspecified constipation type DISPOSITION Discharge 02/18/2024 10:51:20 PM PATIENT REFERRED TO: [facility] [address] [facility] [place] [address] As needed DISCHARGE MEDICATIONS: New Prescriptions POLYETHYLENE GLYCOL, PEG, 3350 (MIRALAX) 17 G PACKET Take 17 g by mouth daily for 7 days. (Comment: Please note this report has been produced using speech recognition software and may contain errors related to that system including errors in grammar, punctuation, and spelling, as well as words and phrases that may be inappropriate. If there are any questions or concerns please feel freeto contact the dictating provider for clarification.) Rigo Joiner MD (electronically signed) Emergency Medicine Provider Rigo Jonier MD 02/18/24 [id number] + Plan note Diagnostic Tests Pending * Urine Culture 02/17/24 [facility] 08-26-2024 Hospital Discharge instructions Patient Education 02/17/2024 09:43:21 Dysuria, Uncertain Cause (Adult) Dysuria with Uncertain Cause (Adult) The urethra is the tube that allows urine to pass out of the body. In a woman, the urethra is the opening above the vagina. In men, the urethra is the opening on the tip of the penis. Dysuria is the feeling of pain or burning in the urethra when passing urine. Dysuria can be caused by anything that irritates or inflames the urethra. An infection or chemical irritation can cause this reaction. A bladder infection is the most common cause of dysuria in adults. A urine test can diagnose this. A bladder infection needs antibiotic treatment. Soaps, lotions, colognes and feminine hygiene products can cause dysuria. So can control jellies, creams, and foams. It will go away 1 to 3 days after using these irritants. Sexually transmitted diseases (STDs) such as chlamydia or gonorrhea can cause dysuria. Your healthcare provider may take a culture sample. Your provider may start you on antibiotic medicine before the culture test returns. In women who have gone through menopause, dysuria can be from dryness in the lining of the urethra.This can be treated with hormones. Dysuria becomes long- term (chronic) when it lasts for weeks or months. You may need to see a specialist (urologist) to diagnose and treat chronic dysuria. Home care These home care tips may help: Don't use any chemicals or products that you think may be causing your symptoms. If you were given a prescription medicine, take as directed. Be sure to take it until it is all used up. If a culture was taken, don't have sex until you have been told that it is negative. This means youdon't have an infection. Then follow your healthcare provider's advice to treat your condition. If a culture was done and it is positive: Both you and your sexual partner may need to be treated. This is true even if your partner has no symptoms. Contact your healthcare provider or go to an urgent care clinic or the public health department to be looked at and treated. Don't have sex until both you and your partner(s) have finished all antibiotics and your healthcareprovider says you are no longer contagious. Learn about and use safe sex practices. The safest sex is with a partner who has tested negative and only has sex with you. Condoms can prevent STDs from spreading, but they aren't a guarantee. Follow-up care Follow up with your healthcare provider, or as advised. If a culture was taken, you may call as directed for the results. If you have an STD, follow up with your provider or the public health department for a complete STD screening, including HIV testing. For more information, contact CDC-INFO at 716-769-0547. When to seek medical advice Call your healthcare provider right away if any of these occur: You aren't better after 3 days of treatment Fever of 100.4 F (38 C) or higher, or as directed by your healthcare provider Back or belly pain that gets worse You can't urinate because of pain New discharge from the urethra, vagina, or penis Painful sores on the penis Rash or joint pain Painful lumps (lymph nodes) in the groin Testicle pain or swelling of the scrotum [id number] [employer]. [address] [place] [address]. All rights reserved. This information is not intended as a substitute for professional medical care. Always follow yourhealthcare professional's instructions. Follow Up Care 02/17/2024 08:50:59 With:NIKKI OLSEN Address: [address] [place] [phone] [employer] (1) When:5-7 days Comments:Follow-up as needed if symptoms are not improving.Push fluids.Use Tylenol or Advil for pain and fever as needed.Use antibiotic (Keflex) to treat for presumed UTI.Return to the ED if symptoms worsen. [facility] 08-26-2024 Note Discharge Instructions Thank you for allowing [facility] to assist you with your healthcare needs. The following is importantdischarge information regarding your hospital visit. What to Do Next Instructions from Your Care Team No qualifying data available. Post Acute Orders No qualifying data available. You Need to Schedule the Following Appointments Follow Up with NIKKI OLSEN When:Within 5-7 days Where:[address] [place] [phone] [employer] (1) Additional Information: Follow-up as needed if symptoms are not improving. Push fluids. Use Tylenol or Advil for pain and fever as needed. Use antibiotic (Keflex) to treat for presumed UTI. Return to the ED if symptoms worsen. Allergies Wellbutrin Medications Please ask your primary doctor or pharmacist before taking any other medication not listed, including over the counter drugs, herbal medications, vitamins and or supplements as they may interact withyour home medications. What How Much When Instructions Last Dose New cephalexin (cephalexin 500 mg oral tablet) 1 tab(s) by mouth Two (2) times a day Duration: 5 Days Printed Prescription Please take this list to your next doctor s visit. Bring all medications you take, including over the counter medications, herbals and other supplements with you to your doctor s visit. Patients and families are reminded to discard old lists and to update any records with all medication providers or retail pharmacies. Medication Leaflets cephalexin (sef a CORNELIO in) What is the most important information I should know about cephalexin? You should not use this medicine if you are allergic to cephalexin or to similar antibiotics, such as Ceftin, Cefzil, Omnicef, and others. Tell your doctor if you are allergic to any drugs, especially penicillins or other antibiotics. What is cephalexin? Cephalexin is a cephalosporin (SEF a low spor in) antibiotic that is used to treat bacterial infections of the lungs, ear, skin, bones, bladder, and kidneys. Cephalexin is used to treat infections in adults and children who are at least 1 year old. Cephalexin may also be used for purposes not listed in this medication guide. What should I discuss with my healthcare provider before taking cephalexin? You should not use this medicine if you are allergic to cephalexin or any other cephalosporin antibiotic (cefdinir, cefadroxil, cefoxitin, cefprozil, ceftriaxone, cefuroxime, Omnicef, and others). Tell your doctor if you have ever had: an allergy to any drug (especially penicillin); liver or kidney disease; or intestinal problems, such as colitis. The liquid form of cephalexin may contain sugar. This may affect you if you have diabetes. Tell your doctor if you are or breast-feeding. How should I take cephalexin? Follow all directions on your prescription label and read all medication guides or instruction sheets. Use the medicine exactly as directed. Do not use cephalexin to treat any condition that has not been checked by your doctor. Measure liquid medicine carefully. Use the dosing syringe provided, or use a medicine dose-measuring device (not a kitchen spoon). Use this medicine for the full prescribed length of time, even if your symptoms quickly improve. Skipping doses can increase your risk of infection that is resistant to medication. Cephalexin will not treat a viral infection such as the flu or a common cold. Do not share cephalexin with another person, even if they have the same symptoms you have. This medicine can affect the results of certain medical tests. Tell any doctor who treats you that you are using cephalexin. Store the tablets and capsules at room temperature away from moisture, heat, and light. Store the liquid medicine in the refrigerator. Throw away any unused liquid after 14 days. What happens if I miss a dose? Take the medicine as soon as you can, but skip the missed dose if it is almost time for your next dose. Do not take two doses at one time. What happens if I overdose? Seek emergency medical attention or call the Poison Help line at . Overdose symptoms may include nausea, vomiting, stomach pain, diarrhea, and blood in your urine. What should I avoid while taking cephalexin? Antibiotic medicines can cause diarrhea, which may be a sign of a new infection. If you have diarrhea that is watery or bloody, call your doctor before using anti-diarrhea medicine. What are the possible side effects of cephalexin? Get emergency medical help if you have signs of an allergic reaction (hives, difficult breathing, swelling in your face or throat) or a severe skin reaction (fever, sore throat, burning eyes, skin pain, red or purple skin rash with blistering and peeling). Call your doctor at once if you have: severe stomach pain, diarrhea that is watery or bloody (even if it occurs months after your last dose); unusual tiredness, feeling light-headed or short of breath; easy bruising, unusual bleeding, purple or red spots under your skin; a seizure; pale skin, cold hands and feet; yellowed skin, dark colored urine; fever, weakness; or pain in your side or lower back, painful urination. Common side effects may include: diarrhea; nausea, vomiting; indigestion, stomach pain; or vaginal itching or discharge. This is not a complete list of side effects and others may occur. Call your doctor for medical advice about side effects. You may report side effects to FDA at 3-310-KRP-8083. What other drugs will affect cephalexin? Tell your doctor about all your other medicines, especially: metformin; or probenecid. This list is not complete. Other drugs may affect cephalexin, including prescription and [id number] medicines, vitamins, and herbal products. Not all possible drug interactions are listed here. Where can I get more information? Your pharmacist can provide more information about cephalexin. Remember, keep this and all other medicines out of the reach of children, never share your medicines with others, and use this medication only for the indication prescribed. Every effort has been made to ensure that the information provided by [employer]') is accurate, up-to-date, and complete, but no guarantee is made to that effect. Drug information contained herein may be time sensitive. [employer] information has been compiled for use by healthcare practitioners and consumers in the [place] and therefore [employer] does not warrant that uses outside of the [place] are appropriate, unless specifically indicated otherwise. [employer] drug information does not endorse drugs, diagnose patients or recommend therapy. [employer] drug information isan informational resource designed to assist licensed healthcare practitioners in caring for their p atients and/or to serve consumers viewing this service as a supplement to, and not a substitute for, the expertise, skill, knowledge and judgment of healthcare practitioners. The absence of a warningfor a given drug or drug combination in no way should be construed to indicate that the drug or drug combination is safe, effective or appropriate for any given patient. [employer] does not assume any responsibility for any aspect of healthcare administered with the aid of information [employer] provides. The information contained herein is not intended to cover all possible uses, directions, precautions, warnings, drug interactions, allergic reactions, or adverse effects. If you have questions about the drugs you are taking, check with your doctor, nurse or pharmacist. Copyright 5583-7626 [employer]. Version: 05.24. Revision Date: 01/23/2023. Education Materials Dysuria with Uncertain Cause (Adult) The urethra is the tube that allows urine to pass out of the body. In a woman, the urethra is the opening above the vagina. In men, the urethra is the opening on the tip of the penis. Dysuria is the feeling of pain or burning in the urethra when passing urine. Dysuria can be caused by anything that irritates or inflames the urethra. An infection or chemical irritation can cause this reaction. A bladder infection is the most common cause of dysuria in adults. A urine test can diagnose this. A bladder infection needs antibiotic treatment. Soaps, lotions, colognes and feminine hygiene products can cause dysuria. So can control jellies, creams, and foams. It will go away 1 to 3 days after using these irritants. Sexually transmitted diseases (STDs) such as chlamydia or gonorrhea can cause dysuria. Your healthcare provider may take a culture sample. Your provider may start you on antibiotic medicine before the culture test returns. In women who have gone through menopause, dysuria can be from dryness in the lining of the urethra.This can be treated with hormones. Dysuria becomes long- term (chronic) when it lasts for weeks or months. You may need to see a specialist (urologist) to diagnose and treat chronic dysuria. Home care These home care tips may help: Don't use any chemicals or products that you think may be causing your symptoms. If you were given a prescription medicine, take as directed. Be sure to take it until it is all used up. If a culture was taken, don't have sex until you have been told that it is negative. This means youdon't have an infection. Then follow your healthcare provider's advice to treat your condition. If a culture was done and it is positive: Both you and your sexual partner may need to be treated. This is true even if your partner has no symptoms. Contact your healthcare provider or go to an urgent care clinic or the public health department to be looked at and treated. Don't have sex until both you and your partner(s) have finished all antibiotics and your healthcareprovider says you are no longer contagious. Learn about and use safe sex practices. The safest sex is with a partner who has tested negative and only has sex with you. Condoms can prevent STDs from spreading, but they aren't a guarantee. Follow-up care Follow up with your healthcare provider, or as advised. If a culture was taken, you may call as directed for the results. If you have an STD, follow up with your provider or the public health department for a complete STD screening, including HIV testing. For more information, contact CDC-INFO at [phone]. When to seek medical advice Call your healthcare provider right away if any of these occur: You aren't better after 3 days of treatment Fever of 100.4 F (38 C) or higher, or as directed by your healthcare provider Back or belly pain that gets worse You can't urinate because of pain New discharge from the urethra, vagina, or penis Painful sores on the penis Rash or joint pain Painful lumps (lymph nodes) in the groin Testicle pain or swelling of the scrotum 2060-3499 [employer]. [address] [place] [address], [place] [address]. All rights reserved. This information is not intended as a substitute for professional medical care. Always follow yourhealthcare professional's instructions. Additional Information VACCINATE! IT SAVES LIVES! Members of the community who have not yet received the COVID-19 vaccine and would like to receive it can visit one of [facility] vaccine clinics. There are many vaccine clinic locations within the [facility]. For locations and available times, please visit www.[email or web address].gov/. It is important to note that some COVID mobile vaccine clinics are held outdoors and may be canceled in rainy or stormy conditions. To learn more about pediatric vaccinations (ages 5-11), we invite you to visit the [facility] [employer] [facility] webpage. [email or web address].org/[email or web address]-Uuwet-[email or web address]-[email or web address] [email or web address] learn more about the COVID-19 vaccine, we invite you to visit the CDC website for a list of frequently asked questions. https://www.cdc.gov/coronavirus/2019-ncov/vaccines/faq.html [facility] Patient Portal Access Instructions: Stay connected with your healthcare team and access your personal medical information anytime with the [facility] Patient Portal. If you would like a full copy of your medical records please contact the [facility] Medical Records Department Saturday through Saturday between 8a.m. and 4:30p.m. Please follow the directions below to access the portal: 1.Access the email account you provided upon registration to the hospital.2.Look for an invitation email from [facility].3.Open the email and access the invitation link: Accept Invitation to [facility]4.Fill in the required lizarraga to create your account. Sign into [email or web address] with your username and password that you created in the above steps to stay up to date. You can then view a summary of results, a summary of your visits, and the ability to download your summaries to your computer or send the information securely to a physician. Remember that your healthcare information is confidential, so carefully consider who you will allow to register on the [facility] Patient Portal for access to your information. You can also access the [facility] Patient Portal on the [employer]. Simply click on Health Records under [employer] and then click on the [employer] logo. HOW TO SAFELY DISPOSE OF PRESCRIPTION MEDICATIONS Please use one of the following methods to safely dispose of your unused medications. 1.Use a drug disposal kit: the drug disposal pouch allows you to safely discard your old and unuseddrugs. Ask your nurse to give you one when you are discharged.2.Visit a local take-back location: Many local pharmacies and police departments have programs that collect old and unwanted prescriptiondrugs. Call your local pharmacy or go to [email or web address]/2J0Fn4l to find one close to you.3.Make use of household items: Use cat litter or old coffee grounds to dispose medications if other options arenot available. Mix your drugs with these household products, seal them in an airtight container andthrow it into the garbage. Call [facility]: [phone] to be sure your drugs can be disposed of in this way. Some medicines may require a different approach.4.Never flush your medications down the toilet. IF YOU HAVE BEEN PRESCRIBED AN OPIOIDS FOR PAIN If you have been prescribed an opioid (such as hydrocodone, oxycodone or morphine), it is critical to understand the possible side effects and risks of opioid pain medications. Even when taken as directed, opioids can have several side effects including: Tolerance, meaning you might need to take more of a medication for the same pain relief. Nausea, vomiting and/or constipation. Sleepiness, dizziness, dry mouth, confusion, depression or itching. Physical dependence, meaning you have withdrawal symptoms when a medication is stopped ? this can develop within a few days. KNOW YOUR RESPONSIBILITIES It is important to know exactly how much and how often to take the opioid pain medications you are prescribed. Never take opioids in higher amounts or more often than prescribed. Do not combine opioids with alcohol or other drugs that cause drowsiness, such as benzodiazepines, also known as benzos,including diazepam and alprazolam, muscle relaxants or sleep aids. Never sell or share prescriptionopioids. This is illegal. Store opioids in a secure place and out of reach of others (including children, family, friends and visitors). The last page(s) of this document has been signed and retained as a CHART COPY Signatures Patient Education Materials Dysuria, Uncertain Cause (Adult) Medication Leaflets cephalexin My discharge plan and instructions have been reviewed and explained to me and I,ALINA MALIK understand my current condition and have read and understand these discharge instructions. I have received a written copy of the plan/instructions. If I have questions, I am aware that I should contact my d octor. 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 Author Type: Nurse Practitioner Type: Progress Notes Filed: 02/17/2024 09:03 Note Text: Subjective HPI HPI Alina Malik is a 19 year old female who presents today for CC of urinary frequency, urgency. This started weeks ago. Has tried pushing fluids. Symptoms are worsened by nothing. Risk factors hx of uti. Denies std and concerns for . .Patient presents with: Urinary Frequency: urgency x couple weeks PAST MEDICAL HISTORY No date: Anxiety state No date: Depression No past surgical history on file. ALLERGIES Wellbutrin [Bupropion] MEDICATIONS topiramate (TOPAMAX) 25 mg tablet Take 25 mg by mouth daily at bedtime. FLUoxetine (PROZAC) 20 mg capsule Take 20 mg by mouth once daily. cyclobenzaprine (FLEXERIL) 10 mg tablet Take 1 tablet by mouth three times a day as needed for muscle spasm (or pain). (Patient not taking: Reported on 02/17/2024) propranolol HCl (PROPRANOLOL ORAL) Take 10 mg by mouth as needed. (Patient not taking: Reported on 08/26/2023) meloxicam (MOBIC) 15 mg tablet Take 1 tablet by mouth once daily. ARIPiprazole (ABILIFY) 5 mg tablet Take 5 mg by mouth once daily. 4 mg once daily traZODone (DESYREL) 100 mg tablet Take by mouth. (Patient not taking: Reported on 08/26/2023) FAMILY HISTORY Problem Relation Age of Onset Hypertension Mother COPD Mother Social History Tobacco Use Smoking status: Never Smokeless tobacco: Never Vaping Use Vaping status: Never Used Substance Use Topics Alcohol use: Never Drug use: Never Review of Systems Constitutional: Negative for chills, fever and weight loss. Respiratory: Negative for cough, shortness of breath and wheezing. Cardiovascular: Negative for chest pain and palpitations. Gastrointestinal: Negative for abdominal pain, blood in stool, constipation, diarrhea, heartburn, melena, nausea and vomiting. Genitourinary: Positive for dysuria, frequency and urgency. Negative for flank pain and hematuria. Objective Blood pressure 128/82, pulse 104, temperature 37 ?C (98.6 ?F), resp. rate 16, weight 130.3 kg (287 lb 4.2 oz), last menstrual period 12/06/2022, SpO2 99%. Physical Exam Constitutional: General: She is not in acute distress. Appearance: Normal appearance. She is not toxic-appearing. Cardiovascular: Rate and Rhythm: Normal rate and regular rhythm. Heart sounds: Normal heart sounds. Pulmonary: Effort: Pulmonary effort is normal. Breath sounds: Normal breath sounds. Abdominal: General: Bowel sounds are normal. Palpations: Abdomen is soft. Tenderness: There is no abdominal tenderness. Skin: General: Skin is warm and dry. ASSESSMENT/PLAN: 1. Urinary frequency - ICD9: 788.41, ICD10: R35.0 subacute - Send urine for culture No treatment today, treat per c/s, f/u with pcp or transportation maintenance specialist if negative. - Patient education for prevention given - UA DIP, URINE (POC) - URINE CULTURE Skinny Moore APRN.[facility]08-26-2024 History of Present illness Narrative* Skinny Moore APRN.NATHAN - 02/17/2024 7:57 AM EDT Subjective HPI HPI Alina Malik is a 19 year old female who presents today for CC of urinary frequency, urgency. This started weeks ago. Has tried pushing fluids. Symptoms are worsened by nothing. Risk factors hx of uti. Denies std and concerns for . .Patient presents with: Urinary Frequency: urgency x couple weeks PAST MEDICAL HISTORY No date: Anxiety state No date: Depression No past surgical history on file. ALLERGIES Wellbutrin [Bupropion] MEDICATIONS topiramate (TOPAMAX) 25 mg tablet Take 25 mg by mouth daily at bedtime. FLUoxetine (PROZAC) 20 mg capsule Take 20 mg by mouth once daily. cyclobenzaprine (FLEXERIL) 10 mg tablet Take 1 tablet by mouth three times a day as needed for muscle spasm (or pain). (Patient not taking: Reported on 02/17/2024) propranolol HCl (PROPRANOLOL ORAL) Take 10 mg by mouth as needed. (Patient not taking: Reported on 08/26/2023) meloxicam (MOBIC) 15 mg tablet Take 1 tablet by mouth once daily. ARIPiprazole (ABILIFY) 5 mg tablet Take 5 mg by mouth once daily. 4 mg once daily traZODone (DESYREL) 100 mg tablet Take by mouth. (Patient not taking: Reported on 08/26/2023) FAMILY HISTORY Problem Relation Age of Onset Hypertension Mother COPD Mother Social History Tobacco Use Smoking status: Never Smokeless tobacco: Never Vaping Use Vaping status: Never Used Substance Use Topics Alcohol use: Never Drug use: Never Review of Systems Constitutional: Negative for chills, fever and weight loss. Respiratory: Negative for cough, shortness of breath and wheezing. Cardiovascular: Negative for chest pain and palpitations. Gastrointestinal: Negative for abdominal pain, blood in stool, constipation, diarrhea, heartburn, melena, nausea and vomiting. Genitourinary: Positive for dysuria, frequency and urgency. Negative for flank pain and hematuria. Objective Blood pressure 128/82, pulse 104, temperature 37 C (98.6 F), resp. rate 16, weight 130.3 kg (287 lb4.2 oz), last menstrual period 12/06/2022, SpO2 99%. Physical Exam Constitutional: General: She is not in acute distress. Appearance: Normal appearance. She is not toxic-appearing. Cardiovascular: Rate and Rhythm: Normal rate and regular rhythm. Heart sounds: Normal heart sounds. Pulmonary: Effort: Pulmonary effort is normal. Breath sounds: Normal breath sounds. Abdominal: General: Bowel sounds are normal. Palpations: Abdomen is soft. Tenderness: There is no abdominal tenderness. Skin: General: Skin is warm and dry. ASSESSMENT/PLAN: 1. Urinary frequency - ICD9: 788.41, ICD10: R35.0 subacute - Send urine for culture No treatment today, treat per c/s, f/u with pcp or transportation maintenance specialist if negative. - Patient education for prevention given - UA DIP, URINE (POC) - URINE CULTURE Skinny Moore APRN.CNP [facility] Miscellaneous Notes* Telephone Encounter - Sue Ryder MA - 09/03/2023 7:27 AM EDT Patient given results and verbalized understanding of instructions given. Sue Ryder MA * Telephone Encounter - Skinny Moore APRN.CNP - 09/03/2023 7:17 AM EDT Please notify that covid/flu/rsv testing negative. Continue with plan of care as discussed during visit. documented in this encounterMer[facility]-2024 Instructions* Patient Instructions* Siva Herndon APRN.CNP - 09/02/2023 5:05 PM EDT How to Manage Common Symptoms Associated with COVID for Adults Fever- Fever is a temperature over 100.4 F and can occur when the body is fighting an infection. Tohelp treat a fever: Drink plenty of fluids and stay well hydrated. Eat small amounts of easy to digest food. Rest. Your body needs rest to recover, but getting up and moving around the house frequently is a good idea. You should try to continue doing your normal daily activities (bathing, toileting, grooming, cooking), though you will probably feel tired, and need to rest often. Avoid any heavy activity or exercise, as this will increase your body temperature. Dress in light clothing and stay covered in a light sheet. Keep the room temperature cool. Take a slightly warm (not cold or cool) bath, or apply damp washcloths to the forehead and wrists. Cough- Cough is a common symptom associated with COVID and can be bothersome. To help treat a cough: Stay well hydrated. Try warm water or tea with lemon and/or honey to help soothe the cough. Use a humidifier to add moisture to the air. Try a product with menthol, like a cough drop or a rub for your chest such as Vicks, which can helpreduce cough. Try cough drops. Avoid smoking and other strong odors or perfumes. Try breathing exercises to keep your lungs open and clear. Take a big deep breath through your noseand hold for 5 seconds before slowly releasing. Repeat frequently, while you are awake. Congestion- Runny nose or nasal congestion can occur with COVID. Treatment can help relieve symptoms: Try OTC nasal saline spray, or nasal saline rinse to relieve mucus congestion. Nasal strips can help keep nasal passages open, to increase airflow. Elevating your head with an extra pillow in bed can help reduce congestion. Using a humidifier can increase moisture in the air, and make breathing easier. Sore Throat- Another common symptom with COVID, can be managed at home by: Stay well hydrated. Gargle with salt water - mix teaspoon salt with 1 cup of warm water and gargle. This helps to loosen mucus in the back of the throat and may reduce discomfort. Try ice chips, popsicles or lozenges to soothe the throat. Nausea/Vomiting/Diarrhea- These are common symptoms, and staying hydrated is most important. If you are nauseous or vomiting, start with small sips of water every 10-15 minutes and increase astolerated. You can try sucking an ice cube too. If tolerating, you can try pedialyte or Gatorade, or flat sprite or norma-gregory. Start slowly and increase as you are able to. Instead of meals, try smaller, more frequent snacks. Try eating bland foods like crackers, toast, rice, and applesauce. Avoid spicy, greasy or fried foods and dairy containing foods. Even if you aren't feeling hungry due to lack of smell or taste, it is important to try to take in some food when you are able. After drinking and eating, rest in an upright position for up to two hours as needed to help decrease nauseous feelings. Try closing your eyes, avoid moving and watching TV. Avoid strong odors that can make you feel more nauseated. When to seek emergency medical attention Look for emergency warning signs for COVID-19. If having any of these symptoms, seek emergency medical care immediately: Trouble breathing Persistent pain or pressure in the chest New confusion Inability to wake or stay awake Bluish lips or face *This list is not all possible symptoms. Please call your medical provider for any other symptoms that are severe or concerning to you. documented in this encounterMer[facility] History of Present illness Narrative* Siva Herndon APRN.CNP - 09/02/2023 4:55 PM EDT Subjective HPI Nontoxic-appearing female presents urgent care chief complaint body aches chills headache fatigue neck pain and tiredness. Patient states she was seen multiple times for this in the past with no success. Presents today for reevaluation. Most bothersome symptom today is fatigue. No OTC medication use. Was able to work today. Denies any fevers productive cough chest pain shortness of breath pleuritic pain hemoptysis nausea vomiting abdominal pain or change in bowel or bladder habits. Past medicalhistory prescription medications allergies reviewed. .Patient presents with: Neck Pain: Fatigue, weak, chills, body aches, head in a fog x 1 week PAST MEDICAL HISTORY Diagnosis Date Anxiety state Depression History reviewed. No pertinent surgical history. ALLERGIES Wellbutrin [Bupropion] MEDICATIONS naproxen (NAPROSYN) 500 mg tablet Take 1 tablet by mouth two times a day with meals for 20 doses. TAKE WITH FOOD Take as needed for pain cyclobenzaprine (FLEXERIL) 10 mg tablet Take 1 tablet by mouth three times a day as needed for muscle spasm (or pain). propranolol HCl (PROPRANOLOL ORAL) Take 10 mg by mouth as needed. (Patient not taking: Reported on 08/26/2023) FLUoxetine (PROZAC) 20 mg capsule Take 20 mg by mouth once daily. (Patient not taking: Reported on 08/26/2023) meloxicam (MOBIC) 15 mg tablet Take 1 tablet by mouth once daily. ARIPiprazole (ABILIFY) 5 mg tablet Take 5 mg by mouth once daily. 4 mg once daily traZODone (DESYREL) 100 mg tablet Take by mouth. (Patient not taking: Reported on 08/26/2023) FAMILY HISTORY Problem Relation Age of Onset Hypertension Mother COPD Mother Social History Tobacco Use Smoking status: Never Smokeless tobacco: Never Vaping Use Vaping Use: Never used Substance Use Topics Alcohol use: Never Drug use: Never BP 124/98 Pulse 100 Temp 37 C (98.6 F) Resp 21 Wt 126.8 kg (279 lb 8.7 oz) LMP 12/06/2022(Approximate) SpO2 97% BMI 47.98 kg/m Review of Systems Constitutional: Positive for malaise/fatigue. Negative for chills and fever. HENT: Negative for congestion, ear discharge, ear pain, sinus pain and sore throat. Eyes: Negative for blurred vision, pain, discharge and redness. Respiratory: Negative for cough, hemoptysis, sputum production, shortness of breath, wheezing and stridor. Cardiovascular: Negative for chest pain. Gastrointestinal: Negative for abdominal pain, diarrhea, nausea and vomiting. Musculoskeletal: Positive for myalgias. Skin: Negative for itching and rash. Neurological: Positive for headaches. Negative for dizziness. Objective Physical Exam Constitutional: General: She is not in acute distress. Appearance: She is not diaphoretic. HENT: Head: Normocephalic. Jaw: No trismus, tenderness, swelling or pain on movement. Mouth/Throat: Mouth: Mucous membranes are moist. Pharynx: Oropharynx is clear. Uvula midline. No pharyngeal swelling, oropharyngeal exudate, posterior oropharyngeal erythema or uvula swelling. Eyes: Conjunctiva/sclera: Conjunctivae normal. Pupils: Pupils are equal, round, and reactive to light. Cardiovascular: Rate and Rhythm: Normal rate and regular rhythm. Heart sounds: Normal heart sounds. Pulmonary: Effort: Pulmonary effort is normal. No tachypnea, accessory muscle usage or respiratory distress. Breath sounds: Normal breath sounds. No stridor. No wheezing, rhonchi or rales. Abdominal: General: There is no distension. Palpations: Abdomen is soft. Tenderness: There is no abdominal tenderness. There is no guarding or rebound. Musculoskeletal: Cervical back: Normal range of motion and neck supple. No edema, erythema, rigidity or tenderness. No pain with movement. Normal range of motion. Lymphadenopathy: Cervical: No cervical adenopathy. Skin: General: Skin is warm and dry. Neurological: Mental Status: She is alert and oriented to person, place, and time. ASSESSMENT/PLAN: 1. Viral illness - ICD9: 079.99, ICD10: B34.9 - COVID & INFLUENZA A/B & RSV NAAT, ROUTINE Previously seen multiple times in the ER for this complaint. Seen on the and 29 August. Unremarkable CBCs magnesium lipase CMP carboxyhemoglobin and influenza COVID-[address] labs[address]of the head was negative. On today's assessment patient was nontoxic-appearing. Hemodynamically stable. No evidence of bacterial infection noted on exam. Test for COVID and influenza due to to worsening fatigue. Was encouraged to follow-up with PCP 1 to 2 days for reevaluation. Red flags reevaluation discussed. Patient was educated on supportive therapies. Patient will follow up with primary careprovider as needed. Patient was instructed to immediately proceed to emergency room for any new, worsening, or symptoms lasting longer than anticipated. The patient's clinical presentation is otherwise unremarkable at this time. Based on exam and clinical finding, the patient is stable for discharge. Plan of care was discussed with patient. Patient verbalizes understanding and agrees to plan of care. This note was generated using [employer] software. It may contain errors in wording, punctuation, or spelling. Siva Herndon APRN.OVERNIGHT BABYSITTER documented in this encounterMer[facility]03-[facility]24 NoteHNO ID: [id number] Author: NOTE, INTERFACE, ? Service: ? Author Type: ? Type: Progress Notes Filed: 08/31/2023 03:42 Note Text: Epic Scheduled Downtime: 08/31/2023 1:00:00 AM to 08/31/2023 3:24:00 [facility]03-04-2024 History of Present illness Narrative* Aberegg, Krislyn P, PA - 08/26/2023 1:38 PM EST 18-year-old female presents for headache. Patient states she has had a headache for about a week. She has been having some vision changes and feels disoriented. She states she just feels off and foggy for the past few days. States she had vision changes last week prior to the headache starting and was seen in the ER. She states they did blood work- that was normal. She states the headache started after that. She does have history of headaches, but she states that this is the worst headache she has ever had. Due to worst headache of life, vision changes, feeling disoriented, I recommended evaluation in the emergency room. She understands. She will go to [place] ER now. She declines EMS. documented in this encounterMercy [facility]06-23-2023 History of Present illness Narrative* Tatiana Nieves APRN.OVERNIGHT BABYSITTER - 12/14/2022 1:07 PM EDT Images from the original note were not included. Rheumatology CONSULTATION Referring Provider: Self Date of Service: 12/14/2022 Gender: female Ethnicity: White Age: [age] year old Chief Complaint: Consult Last [facility] Alina Malik is a 17 year old White female who presents on 12/14/2022 for in person visit for evaluation of Consult. She is currently taking meloxicam. HISTORY OF PRESENT ILLNESS Consult of widespread pain. INTERVAL HISTORY Referred for joint pain. Patient is on a host of medications including prozac, trazadone, mobic States serious problems with pain. Hard time getting up, hard time getting out of bed States years of pain. 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 Exercise almaguer- not on exercise regime, feels pain has really slowed me down. Sleep at night is awful. Had trouble staying at night, takes trazadone at night sometimes. + brain fog + fatigue + feels diffuse tingling in her body. GI almaguer is ok. No rashes. Does not feel she knows any ways that make her feel well. Disease History Patient-Entered Data 3 Oneal Activities of Daily Living 12/14/2022 [...] Moderate Severity 4.3 - 10.0: High Severity RAPID- Weighed Score 11/07/2022 12/14/2022 RAPID 3 Weighed Score 4.56 (High Severity (HS)) 3.67 (Moderate Severity (MS)) RAPID-12/14/2022 Weighed Score Percentage Change Compared to Last Score -19.52 % PROMIS Assessments PROMIS Global Health - (T-Scores - the mean of general population = 50. Five points is a clinicallymeaningful difference.) 11/07/2022 Physical T-Score 34.9 Mental T-Score [...] Pain Location: Other: See Comment Generalized Description: Aching;Burning;Dull;Sore;Stiffness;Throbbing;Tightness;Tingling Aching;Dull Duration Amount of Time: 12 2 [...] the homunculus. Go to the Rheumatology activity andcomplete the homunculus joint exam. Joint Exam 12/14/2022 No joint exam has been documented for this visit Impression Diagnoses: (M79.7) Fibromyalgia (primary encounter diagnosis) active mod-severe FMS Plan (M79.7) Fibromyalgia (primary encounter diagnosis) Comment: Exam and history are consistent with Fibromyalgia We will screen for inflammatory issues as this is concern for pt, We discussed FMS in depth She is working with mental health [employer] B[employer] and is on treatment. Will consult to chronic pain recovery Fibromyalgia is a is a medical disorder characterized by chronic widespread pain and allodynia, a heightened and painful response to pressure . The cornerstones of therapy for this are optimal sleep,regular aerobic exercise (stationary bike, pool therapy) and [...] of this condition. Doing one or the otherwill result in less than an optimal response [...] which included preparing to see the patient, [id number] patient care, completing clinical documentation, obtaining and/or reviewing separately obtained history, performing a medically appropriate examination, and counseling and educating the patient/family/caregiver. Tatiana Nieves APRN.NATHAN cc: PCP: Nikki Olsen [address] [place] [address] documented in this encounterMercy [facility]12-22-2022 History of Present illness Narrative* Genevieve Lindsey Ma - 06/14/2022 10:44 AM EST PT ASSESSMENT - CASTING ROOM Alina presents for Application of brace. Applied Ulnar abutment wrap to Right wrist Patient has been instructed in Care and proper application of brace.. Genevieve Lindsey Ma * Juan Gates MD - 06/14/2022 10:06 AM EST Juan Gates MD Department of Orthopaedics Orthopaedics [address] [place] [address] Dept: [phone] Dept June 14, 2022 CHIEF COMPLAINT: New and Pain of the Right Wrist and Referred by Beth BEACH Patient here today for right wrist pain. States it has been on and off for over a year. No specificinjury. States her pain is on the lateral aspect. Taking Naproxen for the pain and helps some. Has been wearing a cock up wrist splint and states it makes her wrist sore when she wears it. Patient isright hand dominant. 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 May consider cortisone injection as well at some point. FOLLOW UP INSTRUCTIONS: As needed Ms. Alina Malik was advised as to contrast therapies and/or to take analgesics/anti-inflammatories as needed and all contraindications were reviewed. OBJECTIVE: Ms. Alina Malik is a pleasant 17 year old [...] a little bit of tenderness in the ulnar-sidedfossa but her pain she described was more along where the FCU is, not particularly tender around the tendon however. IMAGING: IMPRESSION: No acute radiographic abnormalities seen in the right wrist. Cream Tester: VIOLETTA Transcribe Date/Time: May 14 2022 5:02P [...] letter to requesting physician via US mail. Beth Aguirre [address] [facility] [id number] [facility] [address] [facility] [id number] Juan Gates MD documented in this encounterMercy Health [facility]12-01-2022 History of Present illness Narrative* Roberta Spence - 05/24/2022 1:31 PM EST POPULATION HEALTH NAVIGATION OUTREACH Action/FYI Pt scheduled Pt identified by name and : YES, via phone Outreach Outcome/Action Spoke to patient or caregiver: Patient scheduled Did you use a PCP flex slot to schedule this appointment? No Reason for Outreach Care Gap or Scheduling/Wellness visits Payer: Payor: [facility] / Plan: [facility] / Product Type: Medicaid [...] Message Sent to Practice: No Navigation Signature: Roberta Spence May 24, 2022 1:31 PM documented in this encounterMercy Health Cl[facility]11-21-2022 Instructions* Patient Instructions* Beth Aguirre PA-C - 05/14/2022 5:24 PM EST R.I.C.E. [...] thin washcloth between the bag and your skin.Apply the ice bag to the area for [...] pillows when lying down. documented in this encounterMercy Health [facility]11-21-2022 History of Present illness Narrative* Jenny Cazares RT(R) - 05/14/2022 5:00 PM EST Radiology Service Progress Note PATIENT NAME: Alina Malik DATE OF SERVICE: May 14, 2022 TIME4:50 PM PATIENT IDENTITY VERIFICATION COMPLETED USING TWO (2) IDENTIFIERS: Name and Date of confirmedby patient verbally. FALL SCREENING: Has the patient had 2 falls in the last year or 1 fall with injury or currently using an Ambulatory Assistive Device (Walker, Cane, Wheelchair, Crutches, etc.)? No PATIENT GENDER DATA: Female. status: : No status: NO. PATIENT RELEVANT IMPLANT DATA REVIEWED: Not Applicable RADIOLOGY DEPARTMENT: General X-ray: Exam(s) Completed: Upper Extremity X- Ray(s): Wrist, right PERIPHERAL IV DATA: Not applicable SIGNED BY: RT Dwight(R) May 14, 2022 5:00 PM documented in this encounterMercy Health [facility]11-21-2022 History of Present illness Narrative* Beth Aguirre PA-C - 05/14/2022 4:33 PM EST Images from the original note were not included. Subjective HPI HPI Alina Malik is a 17 year old female who presents today for CC of R ulnar aspect of wrist. Has been bothering her for a year, but got much worse about 1 week ago. Intermittently swollen,worse when she doesn't ice or use heat on it. 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 Notes that it's typically 4/10 on the pain scale but becomes ~7/10 on the pain scale. Was seen at [facility] on Saturday, and they said they will [...] these issues and agrees with the plan. Beth Aguirre PA-C [facility] Future Appointments Appointment Date:07/29/2024 01:00:00 PM Scheduled Provider: Location:[facility] Appointment Type:VL - Venous US/Doppler One Leg (for DVT) [facility] Evaluation noteNo assessment information available [facility] Work Phone: Evaluation note* Diagnosis Onset Date Resolution Status Gall stone acute Gastritis acute [facility] Work Phone: Evaluation note* Diagnosis Right wrist pain- Primary Pain in joint, forearm [facility]* 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 [facility]* Diagnosis Fibromyalgia- Primary Mylagia and myositis, unspecified documented in this encounter [facility]* Diagnosis Headache, unspecified headache type- Primary documented in this encounter [facility] note* Diagnosis Viral illness- Primary Unspecified viral infection, in conditions classified elsewhere and of unspecified site documented in this encounter [facility] note* Diagnosis Urinary frequency- Primary documented in this encounter [facility] note* Diagnosis Constipation, unspecified constipation type- Primary documented in this encounter [facility] note* Diagnosis Procedure not carried out- Primary Procedure not carried out for other reasons documented in this encounter [facility] note* Diagnosis Bilateral leg edema- Primary Edema Tachycardia Tachycardia, unspecified SOB (shortness of breath) Shortness of breath Nausea Nausea alone documented in this encounter [facility] course Narrative No data available for this section [facility] Hospital Discharge instructions Additional Instructions Please follow-up with your family doctor to discuss need for an outpatient ultrasound of your gallbladder based on your presentation today. If work-up for your gallbladder is negative then you can discuss referral to GI doctor to inquire about a EGD to further assess for acid reflux versus ulcers. Please return to the ER should you have any further concerns.[facility] Work Phone: [facility] Work Phone[facility] Work Phone: [facility] Dis[facility] instructionsWKn[facility] Work Phone: Hospital Discharge instructions Additional Instructions Please follow-up with your family doctor to discuss starting antianxiety medications and return to the ER should you have any further concernsWKnox [facility] Work Phone: Hospital Discharge instructions No data available for this section [facility] Progress note No data available for this section [facility] Reason for visit Narrative* Diagnostic Procedure Only (Urgent) - Closed Specialty Diagnoses / Procedures Referred By Contac t Referred To Contact XR IMAGING Diagnoses Right wrist pain Procedures XR WRIST GENERAL 3V PA/LAT/OBL RIGHT RADEX WRIST COMPLETE MINIMUM 3 VIEWS Beth Aguirre, DAO [address] [place] [address] [place] [address] Referral ID Status Reason Start Date Expiration Date V isits Requested Visits Authorized [id number] Closed Auto-Generate d Referral 05/14/2022 06/13/2023 1 1 [facility] Summary Purpose Family History No Family History Records Found Relationship Condition Age at Onset Recorded Date/T nel mother Hypertension Unknown Seizure Unknown grandmother Malignant neoplasm of breast Unknown Malignant neoplasm Unknown Advance Directives No Advanced Directives Records Found Advance Directive Response Recorded Date/ Time Living Will No October 01, 2021 1:22am Power of Product Info Specialist No October 01 1:22am Advance Directive Response Recorded Date/ Time Living Will No December 12, 2021 10:49am Power of Product Info Specialist No December 12 10:49am Advance Directive Response Recorded Date/ Time Living Will No December 17, 2021 2:52am Power of Product Info Specialist No December 17 2:52am Advance Directive Response Recorded Date/ Time Living Will No May 07 11:32pm Power of Product Info Specialist No May 07, 2022 11:32pm Advance Directive Response Recorded Date/ Time Living Will No July 09 12:22am Power of Product Info Specialist No July 09, 2022 12:22am Chief Complaint and Reason for Visit Chief Complaint abd pain Chief Complaint abd pain RUQ PAIN Chief Complaint abd pain RUQ PAIN CHOLELITHIASIS; SOLITARY ECHOGENIC GALLSTONE abd pain,n/v Reason for Visit Gall stone Gastritis Chief Complaint abd pain RUQ PAIN CHOLELITHIASIS; SOLITARY ECHOGENIC GALLSTONE abd pain,n/v LACK OF SLEEP Reason for Visit Gall stone Gastritis Chief Complaint abd pain FOREIGN OBJECT Chief Complaint abd pain FOREIGN OBJECT anxiety panic attack Reason for Referral Specialty Diagnoses / Procedures Referred By Contreggie t Referred To Contact Orthopedics Diagnoses Right wrist pain Procedures CONSULT TO ORTHOPAEDICS OFFICE/OUTPATIENT [facility] 60-74 MINUTES Beth Aguirre, PA-C [address] [place] [address] Referral ID Status Reason Start Date Expiration Date Visits Requested Visits Authorized [id number] Authorized PCP Requested Referral 2 05/14/2023 1 1 Specialty Diagnoses / Procedures Referred By Adeel t Referred To Contact XR IMAGING Diagnoses Right wrist pain Procedures XR WRIST GENERAL 3V PA/LAT/OBL RIGHT RADEX WRIST COMPLETE MINIMUM 3 VIEWS Beth Aguirre, DAO [address] [place] [address] Xr Imaging Referral ID Status Reason Start Date Expiration Date V isits Requested Visits Authorized [id number] Closed Auto-Generate d Referral 05/14/2022 06/13/2023 1 1 Specialty Diagnoses / Procedures Referred By Contac t Referred To Contact [facility] Diagnoses Fibromyalgia Procedures CONSULT TO [place] FOR PAIN RECOVERY (CHRONIC PAIN) OFFICE/OUTPATIENT [facility] 60-74 MINUTES Tatiana Nieves, SENIOR MERCHANDISER.OVERNIGHT BABYSITTER [address] [place] [address] Referral ID Status Reason Start Date Expiration Date Visits Requested Visits Authorized [id number] Pending Review PCP Requested Referral 12/14/2022 12/14/2023 1 1 Health Concerns Infection Onset Date Last Indicated Resolved Time COVID-19 Rule-Out 09/02/2023 09/02/2023 Infection Onset Date Last Indicated Resolved Time COVID-19 Rule-Out 09/02/2023 09/02/2023 09/03/2023 4:17 AM EDT Additional Source Comments INFORMATION SOURCE (unrecogn ized section and content) DATE CREATED AUTHOR 04/16/2018 [facility] DATE CREATED AUTHOR AUTHOR'S ORGANIZ ATION 09/01/2023 [facility] DATE CREATED AUTHOR AUTHOR'S ORGANIZ ATION 02/20/2024 [facility] DATE CREATED AUTHOR AUTHOR'S ORGANIZ ATION 02/22/2024 [facility] DATE CREATED AUTHOR AUTHOR'S ORGANIZ ATION 05/04/2024 [facility] DATE CREATED AUTHOR AUTHOR'S ORGANIZ ATION 08/11/2024 [facility] DATE CREATED AUTHOR AUTHOR'S ORGANIZ ATION 11/18/2024 [facility] DATE CREATED AUTHOR AUTHOR'S ORGANIZ ATION 11/28/2024 [facility] Goals (unrecognized section and content) Goals may be documented in a n alternate sectionGoals may be documented in an alternate sectionGoals may be documented in an alternate sectionGoals may be documented in an alternate sectionGoals may be documented in an alternate sectionGoals may be documented in an alternate section No data available for this section No data available for this section No data available for this section Source Comments (unrecognize d section and content) In the event this informatio n is protected by the Federal Confidentiality of Alcohol and Drug Abuse Patient Records regulations: The Federal rules restrict any use of the information to criminally investigate or prosecute any alcohol or drug abuse patient.[facility] HospitalIn the event this information is protected by the Federal Confidentiality of Alcohol and Drug Abuse Patient Records regulations: The Federal rules restrict any use of the information to criminally investigate or prosecute any alcohol or drug abuse patient.[facility] HospitalIn the event this information is protected by the Federal Confidentiality of Alcohol and Drug Abuse Patient Records regulations: The Federal rules restrict any use of the information to criminally investigate or prosecute any alcohol or drug abuse patient.[facility] HospitalIn the event this information is protected by the Federal Confidentiality of Alcohol and Drug Abuse Patient Records regulations: The Federal rules restrict any use of the information to criminally investigate or prosecute any alcohol or drug abuse patient.[facility] HospitalIn the event this information is protected by the Federal Confidentiality of Alcohol and Drug Abuse Patient Records regulations: The Federal rules restrict any use of the information to criminally investigate or prosecute any alcohol or drug abuse patient.[facility] HospitalIn the event this information is protected by the Federal Confidentiality of Alcohol and Drug Abuse Patient Records regulations: The Federal rules restrict any use of the information to criminally investigate or prosecute any alcohol or drug abuse patient.[facility] HospitalIn the event this information is protected by the Federal Confidentiality of Alcohol and Drug Abuse Patient Records regulations: The Federal rules restrict any use of the information to criminally investigate or prosecute any alcohol or drug abuse patient.[facility] HospitalIn the event this information is protected by the Federal Confidentiality of Alcohol and Drug Abuse Patient Records regulations: The Federal rules restrict any use of the information to criminally investigate or prosecute any alcohol or drug abuse patient.[facility] HospitalIn the event this information is protected by the Federal Confidentiality of Alcohol and Drug Abuse Patient Records regulations: The Federal rules restrict any use of the information to criminally investigate or prosecute any alcohol or drug abuse patient.[facility] HospitalIn the event this information is protected by the Federal Confidentiality of Alcohol and Drug Abuse Patient Records regulations: The Federal rules restrict any use of the information to criminally investigate or prosecute any alcohol or drug abuse patient.[facility] HospitalIn the event this information is protected by the Federal Confidentiality of Alcohol and Drug Abuse Patient Records regulations: The Federal rules restrict any use of the information to criminally investigate or prosecute any alcohol or drug abuse patient.[facility] Reason for Visit (unrecogniz ed section and content) Reason Comments Wrist Pain R wrist pain x1 year , worse last few days Reason Comments New Pain Referred by Beth Aguirre Specialty Diagnoses / Procedures Referred By Adeel triana Referred To Contact Orthopedics Diagnoses Right wrist pain Procedures CONSULT TO ORTHOPAEDICS OFFICE/OUTPATIENT NEW HIGH MDM 60-74 MINUTES Beth Aguirre PA-C [address] [place] [address] Referral ID Status Reason Start Date Expiration Date V isits Requested Visits Authorized [id number] Closed PCP Requested Referral 05/14/2022 05/14/2023 1 1 Reason Comments Consult Reason Comments Headache SILVER x 1 week Reason Comments Neck Pain Fatigue, weak, chill s, body aches, head in a fog x 1 week Reason Comments Results Reason Comments Urinary Frequency urgency x couple wee ks Reason Comments Abdominal Pain Pt states she was se en yesterday for same at [facility] and was told she had a uti and discharged. Pt states today the pain has worsened in her RLQ around to her back 12/01 & sharp/cramping in nature. Reason Comments Nausea Bilateral leg swelli ng x4 days Care Teams (unrecognized sec tion and content) 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 Start Date End Date Clinic, Rukhsana Luz [address] [place] [address] PCP - General 02/28/22 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 Start Date End Date [facility], Rukhsana Luz [address] [place] [address] PCP - General 02/28/22 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 Start Date End Date [facility], Rukhsana Luz [facility] [place] [address] PCP - General 02/28/22 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 Start Date End Date Nikki Olsen NP [address] [place] [address] PCP - General Family Medicine 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 Start Date End Date Nikki Olsen NP [address] [place] [address] PCP - General Family Medicine 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 Start Date End Date Nikki Olsen NP [address] [place] [phone] PCP - General Family Medicine 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 Start Date End Date Nikki Olsen NP [address] [place] [phone] PCP - General Family Medicine 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 Start Date End Date Nikki Olsen NP [address] [place] [phone] PCP - General Family Medicine 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 Start Date End Date Rukhsana Samaniego PCP - General 02/28/22 10/09/22 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 Start Date End Date Nikki Olsen NP [address] [place] [phone] PCP - General Family Medicine 10/10/22 Nikki Olsen NP [address] [place], [place] [id number] Referring Family Medicine 03/27/24 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 Do Not give oral and IV within 1 hour of each other unless specifically ordered. 2120 (Given - Provid er: Candelaria Gerard RN) ondansetron (Zofran) injection 4 mg (COMPLETED) 4 mg, IntraVENous, Once, On Sat02/18/24 at 2114, For 1 dose 2120 (Given - Provid er: Candelaria Gerard RN) sodium chloride 0.9 % bolus 1,000 mL (COMPLETED) 1,000 mL, IntraVENous, at 1,000 mL/hr, Administer over 1 Hours, Once, On Sat02/18/24 at 2114, For 1 dose 2120 (New Bag - Prov ider: Candelaria Gerard RN)2220 (Stopped - Provider: Candelaria Gerard RN) FOR RECORDS PERTAINING TO PATIENTS WHO ARE [...] BE BASED ON THE PRIMARY CLINICAL RECORDS. [facility] [employer] [facility]. provides no warranty or guarantee of the accuracy or completeness of information in this document.
[2024-11-30 08:16] LABS: Absolute Lymphocyte Count 4.28 X10^3/uL (0.83-4.51); Absolute Neutrophil Count 6.2 X10^3/uL (2.0-7.7); Basophil# 0.06 X10^3/uL; Basophil% 0.5 % (0-1); Eosinophil# 0.39 X10^3/uL; Eosinophils% 3.4 % (0-5); Hematocrit 36.4 % (37-47); Hemoglobin 12.3 g/dL (12.0-15.0); Lymphocyte # 4.28 X10^3/ul (0.83-4.51); Lymphocyte % 37.4 % (19-41); Mean Corp Hgb Conc 33.8 g/dL (32-36); Mean Corpuscular Hgb 27.7 pg (27.0-32.0); Mean Platelet Vol. 9.1 fl (6.2-12.0); Monocyte# 0.47 X10^3/uL; Monocyte% 4.1 % (0-10); NRBC Flagged by Analyzer 0 % (0-5); Neutrophil % 54.2 % (47-70); Platelet Count 338 K/mm3 (150-450); RBC Distribution Width CV 14.1 % (11.6-14.6); RBC Distribution Width SD 41.4 fl (35.1-43.9); Red Blood Count 4.44 M/mm3 (4.2-5.4); White Blood Count 11.5 K/mm3 (4.4-11.0)
[2024-11-30 09:10] LABS: FOLATES,SERUM (FOLIC ACID) 6.13 ng/mL (4.60-34.80)
[2024-11-30 09:11] LABS: ALB/GLOB Ratio 1.4 RATIO (0.9-2.4); AST(SGOT) 27 U/L (<=31); Alanine Aminotransfer ALT/SGPT 22 U/L (<=34); Alkaline Phosphatase 121 U/L (35-104); Anion Gap 12 (5-15); BUN 11 mg/dL (4-19); BUN/Creat Ratio 15.1 RATIO (10-20); Calcium,Total 9.5 mg/dL (7.6-11.0); Carbon Dioxide 22.2 mmol/L (21.0-32.0); Chloride 105 mmol/L (98-108); EST Glomerular Filtration Rate 125 (>60); Ferritin 32 ng/mL (22-378); Free T3 3.1 pg/mL (2.18-3.98); Globulin 2.8 g/dL (2.2-4.2); Glucose 95 mg/dL (70-99); Iron 34 ug/dL (50-170); Iron Binding Capacity,Total 307 ug/dL (250-450); Iron Binding Capacity,Unsat 273 ug/dL (228-428); Potassium 3.8 mmol/L (3.3-5.1); Protein, Total 6.9 g/dL (5.9-8.4); Sodium Level 139 mmol/L (133-145); Total Bilirubin 0.42 mg/dL (0.00-1.30); Vitamin B12 819 pg/mL (180-914)
[2024-12-01 04:07] LABS: Thyroid Peroxidase AB < 9 IU/mL (0-34)
== END | disposition home or self-care (01) ==
LOC: LAB 07:06
PROVIDERS: PCP Nurse Practitioner Family; Referring Provider Nurse Practitioner Family; Visit Provider Nurse Practitioner Family
DX: R20.2 Paresthesia of skin (principal); R13.10 Dysphagia, unspecified
CPT/HCPCS: 36415; 80053; 82607; 82652; 82728; 82746; 83540; 83550; 84439; 84443; 84481; 85025; 86376

== ENCOUNTER → 2024-12-02 | Outpatient (CLI) | payer OTHER, SELFPAY ==
--- NOTE | 2024-12-02 07:20 | MRI_ITS ---
PROCEDURE: BRAIN W/WO CONTRAST 12/02/2024 REASON FOR EXAM: MS, ON GOING FATIGUE, BALANCE ISSUES TECHNIQUE: Routine brain MRI without and with intravenous contrast. Multiplanar and multisequence images were obtained. CONTRAST: Clariscan VOLUME: 27 mL COMPARISON: None available. FINDINGS: Brain: Normal signal intensities. No evidence of acute hemorrhage or infarction. Diffusion: Normal. Ventricles: Normal. Sinuses: Clear. Mastoids: Clear. No abnormal intracranial enhancement. MRI/Brain W/WO Contrast IMPRESSION: No significant abnormal signal intensities within the brain. No abnormal intra cranial enhancement. Reading Location: [place] [id number]
--- OUTSIDE RECORDS SUMMARY | 2024-12-02 07:22 | XMS RPT_ITS | CCD ---
Author Organization [facility] Care Team Providers Care Foxing Cutting Machine Operator Name Role Phone DEANN MANUEL Unavailable Unavailable REFERRED, SELF Unavailable Unavailable DEANN MANUEL Unavailable Unavailable Dr. Rukhsana Luz Primary Care Provider Dr. Rukhsana Luz Referring Provider [phone] [facility] Attending Provider Clinic, Rukhsana Luz Primary Care Provider Un available Raúl MARINE TOWER OPERATOR, Nikki Primary Care Provider Raúl MARINE TOWER OPERATOR, Nikki Primary Care Provider RAÚL, NIKKI Primary Care Unavailable ANDREW DELGADILLO Attending Unavailable RAÚL, NIKKI Primary Care Unavailable Raúl MARINE TOWER OPERATOR, Nikki Primary Care Provider RAÚL BUDGET REPORT CLERK-SLURRY CONTROL TENDER, NIKKI Primary Care Physicia n Unavailable Primary Care Provider Unavailabl e RIGO JOINER Referring Unavailable RIGO JOINER Attending Unavailable CLARISSE BRODY MD Attending Unavailable RAÚL BUDGET REPORT CLERK-SLURRY CONTROL TENDER, NIKKI Primary Care Unava ilable Clinic, Rukhsana Luz Primary Care Provider Un available Raúl MARINE TOWER OPERATOR, Nikki Unavailable CARLOTA CHOW DO Admitting Unavailable CARLOTA CHOW DO Attending Unavailable CARLOTA CHOW DO Primary Care Unavailable RAÚL BUDGET REPORT CLERK-SLURRY CONTROL TENDER, NIKKI Primary Care Unava ilable ANDREA CARTER DO Attending Unavailable ANDREA CARTER DO Attending Unavailable RAÚL BUDGET REPORT CLERK-SLURRY CONTROL TENDER, NIKKI Primary Care Unava ilable RAÚL, NIKKI Primary Care Unavailable RAÚL, NIKKI Primary Care Unavailable RAÚL, NIKKI Primary Care Unavailable Raúl VSC, Nikki Attending Unavailabl e Raúl VSC, Nikki Referring Unavailabl e Raúl VSC, [facility] Primary Care Unavailabl e Raúl VSC, [facility] Primary Care Unavailabl e Beam VSC, Zebulun Attending Unavailable Beam VSC, Zebulun Referring Unavailable Raúl VSC, [facility] Primary Care Unavailabl e Beam VSC, Zebulun Attending Unavailable Raúl VS, [facility] Primary Care Unavailabl e Tannhof Eneida Referring Unavailable Tannhof Eneida Attending Unavailable Sarepta VSC, [facility] Primary Care Unavailabl e Beam VSC, Zebulun Attending Unavailable Beam VSC, Zebulun Referring Unavailable Raúl C, [facility] Primary Care Unavailabl e Remy Sawyer Attending Unavailable Tom Villar Attending Unavailable Sarepta VSC, [facility] Primary Care Unavailabl e Raúl VSC, [facility] Primary Care Unavailabl e Remy Sawyer Attending Unavailable Raúl VS, [facility] Primary Care Unavailabl e Vellandany, Mercedes Referring Unavailable Champlandany, Mercedes Attending Unavailable Raúl VS, [facility] Primary Care Unavailabl e Beam VSC, Zebulun Attending Unavailable Beam VSC, Zebulun Referring Unavailable Raúl VSC, [facility] Primary Care Unavailabl e Beam VSC, Zebulun Attending Unavailable [facility], [facility] Attending Unavailabl e Raúl VSC, [facility] Referring Unavailabl e Raúl VSC, [facility] Primary Care Unavailabl e Beam VSC, Zebulun Attending Unavailable Beam VSC, Zebulun Referring Unavailable Raúl [facility], [facility] Primary Care Unavailabl e Raúl VSC, [facility] Attending Unavailabl e Raúl VSC, [facility] Referring Unavailabl e Raúl VSC, [facility] Primary Care Unavailabl e Shan Brody Attending Unavailable Raúl VSC, [facility] Primary Care Unavailabl e Raúl VSC, [facility] Referring Unavailabl e Raúl VSC, [facility] Primary Care Unavailabl e Mahad Cárdenas Attending Unavailable Raúl VSC, [facility] Primary Care Unavailabl e Raúl VSC, [facility] Referring Unavailabl e Yesika Talley Attending Unavailable Vellanki, Mercedes Referring Unavailable Vellanki, Mercedes Attending Unavailable Raúl VSC, [facility] Primary Care Unavailabl e Raúl VSC, [facility] Primary Care Unavailabl e Beam VSC, Zebulun Attending Unavailable Beam [facility], Zebulun Referring Unavailable [facility], [facility] Primary Care Unavailabl e Eneida Echeverria Referring Unavailable Eneida Echeverria Attending Unavailable [facility], Nikki Attending Unavailabl e Raúl [facility], [facility] Primary Care Unavailabl e Christian Hale Attending Unavailable [facility], [facility] Primary Care Unavailabl e Raúl [facility], [facility] Primary Care Unavailabl e Ricky Pillai Attending Unavailable Beam VS, Zebulun Consulting Unavailable Beam VS, Zebulun Referring Unavailable Raúl [facility], [facility] Primary Care Unavailabl e [facility], [facility] Referring Unavailabl e Scott Lopez Attending Unavailable Sarepta MARINE TOWER OPERATOR, [facility] Referring Unavailable Amalia Shannon PORTER Attending Unavailable [facility], [facility] Care Unavailabl e [facility], [facility] Referring Unavailabl e Corina Clay Attending Unavailabl e [facility], [facility] Care Unavailabl e [facility], [facility] Primary Care Unavailabl e Remy Sawyer Attending Unavailable [facility], [facility] Unavailabl e Arvin Segundo Attending Unavailabl e Allergies Allergy Classification Reported Allergen(s) Allergy Type Date of Onset Reaction(s) Facility (18 sources) buPROPion; Translations: [BUPROPION] Drug Allergy 06-14-2022 Bernadette [facility] Work Phone: (1 source) buPROPion Drug Allergy [facility] Repository (1 source) buPROPion Drug Allergy 11-27-2024 [facility] Repository Medications Current Medications Medication Drug Class(es) [...] on above: Take 1 tablet by blaze twice daily with meals. Take 1 tablet by blaze two times a day with meals for 20 doses. TAKE WITH FOOD Take as needed for pain polyethylene glycol 3350 [id number] mg powder for oral solution (2 sources) [...] Comment on above: Take 1 tablet by [facility] once daily. sertraline 50 mg oral [...] source) Dysphagia, unspecified; Translations: [Dysphagia, unspecified] Onset: 11-30-2024 Episodic Other lower respiratory disease (1 source) Dyspnea; Translations: [Shortness of breath] 07-10-2024 Episodic Other nervous system disorders (2 sources) Paresthesia of skin; Translations: [Paresthesia of skin] Onset: 10-06-2024 Episodic Other nervous system disorders (1 source) Other lack of coordination; Translations: [Other lack of coordination] Onset: 11-30-2024 Episodic Other non-traumatic joint disorders (1 source) [...] Test Name Value Interpretation Reference Range Facility Thyroid Peroxidase ABon 11-22 THYR PEROX AB < 9 Normal 0-34 [facility] Comment on above: Result Comment: Perf ormed at: [facility] [address] [id number] Paper Supervisor: Que Cruz PhD, Phone: [phone] Performed By: #### L 501.2450, L501.5200, L500.3400, L500.2500, L100.0100, L700.6800 #### [facility] [address] [place], [address] CBC W/Diff, Automatedon 06-0 Absolute Lymph 4.28 X10 3/uL Normal 0.83-4.51 [facility] Comment on above: Performed By: #### L 501.2450, L501.5200, L500.3400, L500.2500, L100.0100, L700.6800 #### [facility] [address] [place], [address] Absolute Neut 6.2 X10 3/uL Normal 2.0-7.7 [facility] Comment on above: Performed By: #### L 501.2450, L501.5200, L500.3400, L500.2500, L100.0100, L700.6800 #### [facility] [address] [place], [address] Basophils/100 WBC (Bld) 0.5 % Normal 0-1 [facility] Comment on above: Performed By: #### L 501.2450, L501.5200, L500.3400, L500.2500, L100.0100, L700.6800 #### [facility] [address] [place], [address] Eosinophils/100 WBC (Bld) 3.4 % Normal 0-5 [facility] Comment on above: Performed By: #### L 501.2450, L501.5200, L500.3400, L500.2500, L100.0100, L700.6800 #### [facility] [address] [place], [address] Erythrocyte distribution width (RBC) [Ratio] 14.1 % Normal 11.6-14.6 [facility] Comment on above: Performed By: #### L 501.2450, L501.5200, L500.3400, L500.2500, L100.0100, L700.6800 #### [facility] [address] [place], [address] Hematocrit (Bld) [Volume fraction] 36.4 % Low 37-47 [facility] Comment on above: Performed By: #### L 501.2450, L501.5200, L500.3400, L500.2500, L100.0100, L700.6800 #### [facility] [address] [place], [address] Hemoglobin (Bld) [Mass/Vol] 12.3 g/dL Normal 12.0-15.0 [facility] Comment on above: Performed By: #### L 501.2450, L501.5200, L500.3400, L500.2500, L100.0100, L700.6800 #### [facility] [address] [place], [address] IG% 0.400 Normal 0.0-0.9 [facility] Comment on above: Result Comment: IG% - Immature Granulocytes (promyelocytes, myelocytes and metamyelocytes) > 1% indicates that a LEFT SHIFT is Present. Performed By: #### L 501.2450, L501.5200, L500.3400, L500.2500, L100.0100, L700.6800 #### [facility] [address] [place], [address] Lymphocytes/100 WBC (Bld) 37.4 % Normal 19-41 [facility] Comment on above: Performed By: #### L 501.2450, L501.5200, L500.3400, L500.2500, L100.0100, L700.6800 #### [facility] [address] [place], [address] MCH (RBC) [Entitic mass] 27.7 pg Normal 27.0-32.0 [facility] Comment on above: Performed By: #### L 501.2450, L501.5200, L500.3400, L500.2500, L100.0100, L700.6800 #### [facility] [address] [place], [address] MCHC (RBC) [Mass/Vol] 33.8 g/dL Normal 32-36 [facility] Comment on above: Performed By: #### L 501.2450, L501.5200, L500.3400, L500.2500, L100.0100, L700.6800 #### [facility] [address] [place], [address] MCV (RBC) [Entitic vol] 82.0 fL Normal 81-99 [facility] Comment on above: Performed By: #### L 501.2450, L501.5200, L500.3400, L500.2500, L100.0100, L700.6800 #### [facility] [address] [place], [address] Monocytes/100 WBC (Bld) 4.1 % Normal 0-10 [facility] Comment on above: Performed By: #### L 501.2450, L501.5200, L500.3400, L500.2500, L100.0100, L700.6800 #### [facility] [address] [place], [address] Neutrophils/100 WBC (Bld) 54.2 % Normal 47-70 [facility] Comment on above: Performed By: #### L 501.2450, L501.5200, L500.3400, L500.2500, L100.0100, L700.6800 #### [facility] [address] [place], [address] Nucleated RBC (Bld) [#/Vol] 0 10*3/uL Normal 0-5 [facility] Comment on above: Performed By: #### L 501.2450, L501.5200, L500.3400, L500.2500, L100.0100, L700.6800 #### [facility] [address] [place], [address] Platelet mean volume (Bld) [Entitic vol] 9.1 fL Normal 6.2-12.0 [facility] Comment on above: Performed By: #### L 501.2450, L501.5200, L500.3400, L500.2500, L100.0100, L700.6800 #### [facility] [address] [place], [address] Platelets (Bld) [#/Vol] 338 10*3/uL Normal 150-450 [facility] Comment on above: Performed By: #### L 501.2450, L501.5200, L500.3400, L500.2500, L100.0100, L700.6800 #### [facility] [address] [place], [address] RBC (Bld) [#/Vol] 4.44 10*6/uL Normal 4.2-5.4 [facility] Comment on above: Performed By: #### L 501.2450, L501.5200, L500.3400, L500.2500, L100.0100, L700.6800 #### [facility] [address] [place], [address] RDW SD 41.4 fl Normal 35.1-43.9 [facility] Comment on above: Performed By: #### L 501.2450, L501.5200, L500.3400, L500.2500, L100.0100, L700.6800 #### [facility] [address] [place], [address] WBC (Bld) [#/Vol] 11.5 10*3/uL High 4.4-11.0 [facility] Comment on above: Performed By: #### L 501.2450, L501.5200, L500.3400, L500.2500, L100.0100, L700.6800 #### [facility] [address] [place], [address] Comprehensive Metabolic Prof [facility] 11-30-2024 Albumin [Mass/Vol] 4.0 g/dL Normal 3.5-5.0 [facility] Comment on above: Performed By: #### L 501.2450, L501.5200, L500.3400, L500.2500, L100.0100, L700.6800 #### [facility] [address] [place], [address] Albumin/Globulin [Mass ratio] 1.4 {ratio} Normal 0.9-2.4 [facility] Comment on above: Performed By: #### L 501.2450, L501.5200, L500.3400, L500.2500, L100.0100, L700.6800 #### [facility] [address] [place], [address] ALK PHOS 121 U/L High 35-104 [facility] Comment on above: Performed By: #### L 501.2450, L501.5200, L500.3400, L500.2500, L100.0100, L700.6800 #### [facility] [address] [place], [address] ALT [Catalytic activity/Vol] 22 U/L Normal <=34 [facility] Comment on above: Performed By: #### L 501.2450, L501.5200, L500.3400, L500.2500, L100.0100, L700.6800 #### [facility] [address] [place], [address] AST [Catalytic activity/Vol] 27 U/L Normal <=31 [facility] Comment on above: Performed By: #### L 501.2450, L501.5200, L500.3400, L500.2500, L100.0100, L700.6800 #### [facility] [address] [place], [address] Bilirubin [Mass/Vol] 0.42 mg/dL Normal 0.00-1.30 [facility] Comment on above: Performed By: #### L 501.2450, L501.5200, L500.3400, L500.2500, L100.0100, L700.6800 #### [facility] [address] [place], [address] BUN/CRE 15.1 RATIO Normal 10-20 [facility] Comment on above: Performed By: #### L 501.2450, L501.5200, L500.3400, L500.2500, L100.0100, L700.6800 #### [facility] [address] [place], [address] Calcium [Mass/Vol] 9.5 mg/dL Normal 7.6-11.0 [facility] Comment on above: Performed By: #### L 501.2450, L501.5200, L500.3400, L500.2500, L100.0100, L700.6800 #### [facility] [address] [place], [address] Chloride [Moles/Vol] 105 mmol/L Normal 98-108 [facility] Comment on above: Performed By: #### L 501.2450, L501.5200, L500.3400, L500.2500, L100.0100, L700.6800 #### [facility] [address] [place], [address] CO2 [Moles/Vol] 22.2 mmol/L Normal 21.0-32.0 [facility] Comment on above: Performed By: #### L 501.2450, L501.5200, L500.3400, L500.2500, L100.0100, L700.6800 #### [facility] [address] [place], [address] Creatinine [Mass/Vol] 0.70 mg/dL Normal 0.70-1.20 [facility] Comment on above: Performed By: #### L 501.2450, L501.5200, L500.3400, L500.2500, L100.0100, L700.6800 #### [facility] [address] [place], [address] GAP 12 Normal 5-15 [facility] Comment on above: Performed By: #### L 501.2450, L501.5200, L500.3400, L500.2500, L100.0100, L700.6800 #### [facility] [address] [place], [address] GFR/1.73 sq M.predicted among non-blacks MDRD (S/P/Bld) [Vol rate/Area] 125 mL/min/{1.73_m2} Normal >60 [facility] Comment on above: Result Comment: mL/m in/1.73m2 CKD-EPI Creatinine Equation (2020) Performed By: #### L 501.2450, L501.5200, L500.3400, L500.2500, L100.0100, L700.6800 #### [facility] [address] [place], [address] Globulin (S) [Mass/Vol] 2.8 g/dL Normal 2.2-4.2 [facility] Comment on above: Performed By: #### L 501.2450, L501.5200, L500.3400, L500.2500, L100.0100, L700.6800 #### [facility] [address] [place], [address] Glucose [Mass/Vol] 95 mg/dL Normal 70-99 [facility] Comment on above: Performed By: #### L 501.2450, L501.5200, L500.3400, L500.2500, L100.0100, L700.6800 #### [facility] [address] [place], [address] Potassium [Moles/Vol] 3.8 mmol/L Normal 3.3-5.1 [facility] Comment on above: Performed By: #### L 501.2450, L501.5200, L500.3400, L500.2500, L100.0100, L700.6800 #### [facility] [address] [place], [address] Sodium [Moles/Vol] 139 mmol/L Normal 133-145 [facility] Comment on above: Performed By: #### L 501.2450, L501.5200, L500.3400, L500.2500, L100.0100, L700.6800 #### [facility] [address] [place], [address] T PROT 6.9 g/dL Normal 5.9-8.4 [facility] Comment on above: Performed By: #### L 501.2450, L501.5200, L500.3400, L500.2500, L100.0100, L700.6800 #### [facility] [address] [place], [address] Urea nitrogen [Mass/Vol] 11 mg/dL Normal 4-19 [facility] Comment on above: Performed By: #### L 501.2450, L501.5200, L500.3400, L500.2500, L100.0100, L700.6800 #### [facility] [address] [place], [address] Ferritinon 11-30-2024 Ferritin [Mass/Vol] 32 ng/mL Normal 22-378 [facility] Comment on above: Performed By: #### L 501.2450, L501.5200, L500.3400, L500.2500, L100.0100, L700.6800 #### [facility] [address] [place], [place], [address] Folates,Serum (Folic Acid)on 11-30-2024 FOLATES,SERUM 6.13 ng/mL Normal 4.60-34.80 [facility] Comment on above: Order Comment: N Performed By: #### L 501.2450, L501.5200, L500.3400, L500.2500, L100.0100, L700.6800 #### [facility] [address] [place], [place], [id number] [phone] Free T3on 11-30-2024 Free T3 [Mass/Vol] 3.1 pg/mL Normal 2.18-3.98 [facility] Comment on above: Performed By: #### L 501.2450, L501.5200, L500.3400, L500.2500, L100.0100, L700.6800 #### [facility] [address] [place], [place], [id number] Iron+Iron Binding Capacityon 11-30-2024 Iron [Mass/Vol] 34 ug/dL Low 50-170 [facility] Comment on above: Performed By: #### L 501.2450, L501.5200, L500.3400, L500.2500, L100.0100, L700.6800 #### [facility] [address] [place], [place], [id number] IRON SATURATION 11.0 Low 13-59 [facility] Comment on above: Performed By: #### L 501.2450, L501.5200, L500.3400, L500.2500, L100.0100, L700.6800 #### [facility] [address] [place], [place], [id number] TIBC 307 ug/dL Normal 250-450 [facility] Comment on above: Performed By: #### L 501.2450, L501.5200, L500.3400, L500.2500, L100.0100, L700.6800 #### [facility] [address] [place], [address] UIBC 273 ug/dL Normal 228-428 [facility] Comment on above: Performed By: #### L 501.2450, L501.5200, L500.3400, L500.2500, L100.0100, L700.6800 #### [facility] [address] [place], [address] T4 Free Directon 11-30-2024 T4 FREE DIRECT 1.00 ng/dL Normal 0.76-1.46 [facility] Comment on above: Performed By: #### L 501.2450, L501.5200, L500.3400, L500.2500, L100.0100, L700.6800 #### [facility] [address] [place], [address] Thyroid Stim Hormone (TSH)on 11-30-2024 TSH 4.130 uIU/mL Normal 0.300-4.200 [facility] Comment on above: Performed By: #### L 501.2450, L501.5200, L500.3400, L500.2500, L100.0100, L700.6800 #### [facility] [address] [place], [address] Vitamin B12on 11-30-2024 Cobalamin (Vitamin B12) [Mass/Vol] 819 pg/mL Normal 180-914 [facility] Comment on above: Performed By: #### L 501.2450, L501.5200, L500.3400, L500.2500, L100.0100, L700.6800 #### [facility] [address] [place], [address] Urgent Care Visit Reporton 0 11-27-2024 Urgent Care Visit Report [facility] [address] , [address] [place], [place] [address] OFFICE VISIT Date of Service: 11/27/24 MR#: [id number] Acct: [id number] Name: ALINA MALIK Rep #: [id number] : 2005 Provider: MONICA Valles Age/Sex: 19/F Location: [facility] Status: Signed Intake Vital Signs 09/14/24 01:24 [...] and abdominal pain that is upper abdominal. [facility] Medical History EP (ectopic ) Palpitations Wears [...] Exam Const General: cooperative and healthy appearing [facility] Head: normocephalic and atraumatic Ears: hearing [...] promethazine 25 (more content not included)... Normal [facility] 11-11-2024 [facility] Telephone (SLEWST) ALINA MALIK ([id number]) 1 F Date Time Provider Department 11/11/24 MICAELA AGARWAL JR During your visit today, we recorded the following information about you: Logan Watson LPN 11/11/2024 9:24 AM Signed Referral from [facility]. Pt records scanned into chart. Logan Watson [...] Status:Closed by LOGAN WATSON on 11/11/24 Normal [facility] CBC W/Diff, Automatedon 09-22 Absolute Lymph 4.17 X10 3/uL Normal 0.83-4.51 [facility] Comment on above: Performed By: #### L 501.2450, L501.5200, L500.3400, L500.2500, L100.0100, L700.6800 #### [facility] [address] [place], [address] Absolute Neut 6.3 X10 3/uL Normal 2.0-7.7 [facility] Comment on above: Performed By: #### L 501.2450, L501.5200, L500.3400, L500.2500, L100.0100, L700.6800 #### [facility] [address] [place], [address] Basophils/100 WBC (Bld) 0.5 % Normal 0-1 [facility] Comment on above: Performed By: #### L 501.2450, L501.5200, L500.3400, L500.2500, L100.0100, L700.6800 #### [facility] [address] [place], [address] Eosinophils/100 WBC (Bld) 3.4 % Normal 0-5 [facility] Comment on above: Performed By: #### L 501.2450, L501.5200, L500.3400, L500.2500, L100.0100, L700.6800 #### [facility] [address] [place], [address] Erythrocyte distribution width (RBC) [Ratio] 14.1 % Normal 11.6-14.6 [facility] Comment on above: Performed By: #### L 501.2450, L501.5200, L500.3400, L500.2500, L100.0100, L700.6800 #### [facility] [address] [place], [address] Hematocrit (Bld) [Volume fraction] 35.5 % Low 37-47 [facility] Comment on above: Performed By: #### L 501.2450, L501.5200, L500.3400, L500.2500, L100.0100, L700.6800 #### [facility] [address] [place], [address] Hemoglobin (Bld) [Mass/Vol] 12.2 g/dL Normal 12.0-15.0 [facility] Comment on above: Performed By: #### L 501.2450, L501.5200, L500.3400, L500.2500, L100.0100, L700.6800 #### [facility] [address] [place], [address] IG% 0.300 Normal 0.0-0.9 [facility] Comment on above: Result Comment: IG% - Immature Granulocytes (promyelocytes, myelocytes and metamyelocytes) > 1% indicates that a LEFT SHIFT is Present. Performed By: #### L 501.2450, L501.5200, L500.3400, L500.2500, L100.0100, L700.6800 #### [facility] [address] [place], [address] Lymphocytes/100 WBC (Bld) 36.9 % Normal 19-41 [facility] Comment on above: Performed By: #### L 501.2450, L501.5200, L500.3400, L500.2500, L100.0100, L700.6800 #### [facility] [address] [place], [address] MCH (RBC) [Entitic mass] 28.0 pg Normal 27.0-32.0 [facility] Comment on above: Performed By: #### L 501.2450, L501.5200, L500.3400, L500.2500, L100.0100, L700.6800 #### [facility] [address] [place], [address] MCHC (RBC) [Mass/Vol] 34.4 g/dL Normal 32-36 [facility] Comment on above: Performed By: #### L 501.2450, L501.5200, L500.3400, L500.2500, L100.0100, L700.6800 #### [facility] [address] [place], [address] MCV (RBC) [Entitic vol] 81.6 fL Normal 81-99 [facility] Comment on above: Performed By: #### L 501.2450, L501.5200, L500.3400, L500.2500, L100.0100, L700.6800 #### [facility] [address] [place], [address] Monocytes/100 WBC (Bld) 3.4 % Normal 0-10 [facility] Comment on above: Performed By: #### L 501.2450, L501.5200, L500.3400, L500.2500, L100.0100, L700.6800 #### [facility] [address] [place], [address] Neutrophils/100 WBC (Bld) 55.5 % Normal 47-70 [facility] Comment on above: Performed By: #### L 501.2450, L501.5200, L500.3400, L500.2500, L100.0100, L700.6800 #### [facility] [address] [place], [address] Nucleated RBC (Bld) [#/Vol] 0 10*3/uL Normal 0-5 [facility] Comment on above: Performed By: #### L 501.2450, L501.5200, L500.3400, L500.2500, L100.0100, L700.6800 #### [facility] [address] [place], [address] Platelet mean volume (Bld) [Entitic vol] 8.8 fL Normal 6.2-12.0 [facility] Comment on above: Performed By: #### L 501.2450, L501.5200, L500.3400, L500.2500, L100.0100, L700.6800 #### [facility] [address] [place], [address] Platelets (Bld) [#/Vol] 331 10*3/uL Normal 150-450 [facility] Comment on above: Performed By: #### L 501.2450, L501.5200, L500.3400, L500.2500, L100.0100, L700.6800 #### [facility] [address] [place], [address] RBC (Bld) [#/Vol] 4.35 10*6/uL Normal 4.2-5.4 [facility] Comment on above: Performed By: #### L 501.2450, L501.5200, L500.3400, L500.2500, L100.0100, L700.6800 #### [facility] [address] [place], [address] RDW SD 41.4 fl Normal 35.1-43.9 [facility] Comment on above: Performed By: #### L 501.2450, L501.5200, L500.3400, L500.2500, L100.0100, L700.6800 #### [facility] [address] [place], [address] WBC (Bld) [#/Vol] 11.3 10*3/uL High 4.4-11.0 [facility] Comment on above: Performed By: #### L 501.2450, L501.5200, L500.3400, L500.2500, L100.0100, L700.6800 #### [facility] [address] [place], [address] Comprehensive Metabolic Prof vton 10-05-2024 Albumin [Mass/Vol] 3.9 g/dL Normal 3.5-5.0 [facility] Comment on above: Performed By: #### L 501.2450, L501.5200, L500.3400, L500.2500, L100.0100, L700.6800 #### [facility] [address] [place], [address] Albumin/Globulin [Mass ratio] 1.4 {ratio} Normal 0.9-2.4 [facility] Comment on above: Performed By: #### L 501.2450, L501.5200, L500.3400, L500.2500, L100.0100, L700.6800 #### [facility] [address] [place], [address] ALK PHOS 113 U/L High 35-104 [facility] Comment on above: Performed By: #### L 501.2450, L501.5200, L500.3400, L500.2500, L100.0100, L700.6800 #### [facility] [address] [place], [address] ALT [Catalytic activity/Vol] 14 U/L Normal <=34 [facility] Comment on above: Performed By: #### L 501.2450, L501.5200, L500.3400, L500.2500, L100.0100, L700.6800 #### [facility] [address] [place], [address] AST [Catalytic activity/Vol] 23 U/L Normal <=31 [facility] Comment on above: Performed By: #### L 501.2450, L501.5200, L500.3400, L500.2500, L100.0100, L700.6800 #### [facility] [address] [place], [address] Bilirubin [Mass/Vol] 0.55 mg/dL Normal 0.00-1.30 [facility] Comment on above: Performed By: #### L 501.2450, L501.5200, L500.3400, L500.2500, L100.0100, L700.6800 #### [facility] [address] [place], [address] BUN/CRE 17.8 RATIO Normal 10-20 [facility] Comment on above: Performed By: #### L 501.2450, L501.5200, L500.3400, L500.2500, L100.0100, L700.6800 #### [facility] [address] [place], [address] Calcium [Mass/Vol] 8.9 mg/dL Normal 7.6-11.0 [facility] Comment on above: Performed By: #### L 501.2450, L501.5200, L500.3400, L500.2500, L100.0100, L700.6800 #### [facility] [address] [place], [address] Chloride [Moles/Vol] 106 mmol/L Normal 98-108 [facility] Comment on above: Performed By: #### L 501.2450, L501.5200, L500.3400, L500.2500, L100.0100, L700.6800 #### [facility] [address] [place], [address] CO2 [Moles/Vol] 22.5 mmol/L Normal 21.0-32.0 [facility] Comment on above: Performed By: #### L 501.2450, L501.5200, L500.3400, L500.2500, L100.0100, L700.6800 #### [facility] [address] [place], [address] Creatinine [Mass/Vol] 0.71 mg/dL Normal 0.70-1.20 [facility] Comment on above: Performed By: #### L 501.2450, L501.5200, L500.3400, L500.2500, L100.0100, L700.6800 #### [facility] [address] [place], [address] GAP 9 Normal 5-15 [facility] Comment on above: Performed By: #### L 501.2450, L501.5200, L500.3400, L500.2500, L100.0100, L700.6800 #### [facility] [address] [place], [address] GFR/1.73 sq M.predicted among non-blacks MDRD (S/P/Bld) [Vol rate/Area] 123 mL/min/{1.73_m2} Normal >60 [facility] Comment on above: Result Comment: mL/m in/1.73m2 CKD-EPI Creatinine Equation (2020) Performed By: #### L 501.2450, L501.5200, L500.3400, L500.2500, L100.0100, L700.6800 #### [facility] [address] [place], [address] Globulin (S) [Mass/Vol] 2.7 g/dL Normal 2.2-4.2 [facility] Comment on above: Performed By: #### L 501.2450, L501.5200, L500.3400, L500.2500, L100.0100, L700.6800 #### [facility] [address] [place], [address] Glucose [Mass/Vol] 100 mg/dL High 70-99 [facility] Comment on above: Performed By: #### L 501.2450, L501.5200, L500.3400, L500.2500, L100.0100, L700.6800 #### [facility] [address] [place], [address] Potassium [Moles/Vol] 4.0 mmol/L Normal 3.3-5.1 [facility] Comment on above: Performed By: #### L 501.2450, L501.5200, L500.3400, L500.2500, L100.0100, L700.6800 #### [facility] [address] [place], [address] Sodium [Moles/Vol] 138 mmol/L Normal 133-145 [facility] Comment on above: Performed By: #### L 501.2450, L501.5200, L500.3400, L500.2500, L100.0100, L700.6800 #### [facility] [address] [place], [address] T PROT 6.6 g/dL Normal 5.9-8.4 [facility] Comment on above: Performed By: #### L 501.2450, L501.5200, L500.3400, L500.2500, L100.0100, L700.6800 #### [facility] [address] [place], [address] Urea nitrogen [Mass/Vol] 13 mg/dL Normal 4-19 [facility] Comment on above: Performed By: #### L 501.2450, L501.5200, L500.3400, L500.2500, L100.0100, L700.6800 #### [facility] [address] [place], [address] Inital Evaluation (1) - PTon 09-30-2024 Inital Evaluation (1) - PT [facility] [address] [place] [address] / REHABILITATION SERVICES INITIAL EVALUATION MR#: [id number] Acct: [id number] Name: ALINA MALIK Rep #: [id number] : 2005 19 From: Conrado Williamson PT, ATC Referring Dr.: Cristo Cox MARINE TOWER OPERATOR-C Status: RE G RCR Insurance: [employer] SELF PAY INSURANCE Patient's Visit Information Visit Information Visit Information: ALINA MALIK is a 19 year old F referred to Physical Therapy by JACQUELIN Bentley, MARINE TOWER OPERATOR-C with a diagnosis of LBP with B [...] to be FAXED BACK to us at [phone] for Medicare purposes. For Medicare only, by signing this I certify the plan of care. Please let me know if there are questions or concerns regarding this plan of care. Physician Signature: Date: 09/30/24 1421 CC: [facility] MARINE TOWER OPERATOR-C Nikki Lemons [facility] MARINE TOWER OPERATOR-C Beam [facility] Signed Normal [facility] NCS and/or EMG Patienton NCS and/or EMG Patient [facility] Pulmonary Services/Neurology [address] [place] [address] MR#: [id number] Acct: [id number] Name: ALINA MALIK Rep #: [id number] : 2005 19 From: Ricky Pillai MD Referring Dr: Cristo Cox MARINE TOWER OPERATOR-C Status: REG RCR Location: PT Date: 09/30/24 Sex: F C NCS and/or EMG Patient Report Ordering Doctor: Hung Cox DATE OF SERVICE: 09/30/24 Alina presents with complaints of burning and tingling [...] Multi Select Codes Neurology Neurology Interp Codes: 02904-01 Musc test done w/n test comp (interp) (2) and 44894-16 Nr cndj test 11-12 studies (interp) 09/30/24 1246 Date Ricky Pillai MD CC: JACQUELIN MARINE TOWER OPERATOR-C Nikki Olsen; Dr. Ricky Pillai MD; Cristo ROPER MARINE TOWER OPERATOR-C Kenny Date Dictated: 09/30/24 1243 Date Transcribed: 09/30/24 1243 Interrelated Special Education Teacher: TRAV Signed Normal [facility] Emergency Department Summary on 09-14-2024 Emergency Department Summary [facility] Medical Records Department [address] [place] [address] Emergency Department Summary 09/14/24 MR#: [id number] Acct: [id number] Name: ALINA MALIK Rep #: [id number] : 2005 19 From: Remy Sawyer DO PCP: JACQUELIN Flores, MARINE TOWER OPERATOR-C Status:DEP ER Location: ED HPI History of [...] the worsening symptoms comes in for evaluation [facility] Medical History EP (ectopic ) Palpitations [...] leg compared (more content not included)... Normal [facility] Spine Lumbar without Contras ton 09-14-2024 Spine Lumbar without Contrast [facility] Imaging Services [address], [place] [id number] Spine Lumbar without Contrast MR#: [id number] Acct: [id number] Name: ALINA MALIK Rep #: [id number] : 2005 F 19 From: Shailesh Linder MD PCP: JACQUELIN Flores, MARINE TOWER OPERATOR-C Status: REG ER Study: Spine Lumbar without Contrast Date of Exam: Exam# [id number] Ordering Dr: Remy Sawyer DO PROCEDURE: SPINE LUMBAR WITHOUT CONTRAST 09/14/2024 REASON FOR EXAM: LUMBAR RADICULOPATHY TECHNIQUE: Noncontrast lumbar spine CT with coronal and sagittal reformatted images COMPARISON: None available FINDINGS: 5 [id number] lumbar vertebral type bodies identified. No fracture or malalignment. The disc spaces appear within limits. Symmetric appearing SI joints appear within limits. Intrauterine device appears centrally located. Abdominal aorta and visualized retroperitoneum appears unremarkable on noncontrast imaging. Retroaortic left renal vein, incidental anatomic variant. Partially imaged kidneys appear within limits without stones or hydronephrosis identified. CT/Spine Lumbar without Contrast IMPRESSION: 5 [id number] lumbar vertebral type bodies identified. No fracture or malalignment. The disc spaces appear within limits. Symmetric appearing SI joints appear within limits. Reading Location: [id number] CC: [facility] MARINE TOWER OPERATOR-Maverick Olsen; Remy Sawyer DO Interrelated Special Education Teacher: Signed Normal [facility] Urgent Care Visit Reporton 0 09-12-2024 Urgent Care Visit Report [facility] [address], [address] [place] [id number] OFFICE VISIT Date of Service: 09/12/24 MR#: [id number] Acct: [id number] Name: ALINA MALIK Rep #: [id number] : 2005 Provider: JACKELIN Talley Age/Sex: 19/F Location: [facility] Status: Signed Intake Vital Signs 07/10/24 10:43 [...] 7 days after- 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 Normal [facility] CBC W/Diff, Automatedon 08-22 Absolute Lymph 2.84 X10 3/uL Normal 0.83-4.51 [facility] Comment on above: Performed By: #### L 501.2450, L501.5200, L500.3400, L500.2500, L100.0100, L700.6800 #### [facility] [address] [place], [address] Absolute Neut 6.0 X10 3/uL Normal 2.0-7.7 [facility] Comment on above: Performed By: #### L 501.2450, L501.5200, L500.3400, L500.2500, L100.0100, L700.6800 #### [facility] [address] [place], [address] Basophils/100 WBC (Bld) 0.7 % Normal 0-1 [facility] Comment on above: Performed By: #### L 501.2450, L501.5200, L500.3400, L500.2500, L100.0100, L700.6800 #### [facility] [address] [place], [address] Eosinophils/100 WBC (Bld) 4.4 % Normal 0-5 [facility] Comment on above: Performed By: #### L 501.2450, L501.5200, L500.3400, L500.2500, L100.0100, L700.6800 #### [facility] [address] [place], [address] Erythrocyte distribution width (RBC) [Ratio] 13.9 % Normal 11.6-14.6 [facility] Comment on above: Performed By: #### L 501.2450, L501.5200, L500.3400, L500.2500, L100.0100, L700.6800 #### [facility] [address] [place], [address] Hematocrit (Bld) [Volume fraction] 38.4 % Normal 37-47 [facility] Comment on above: Performed By: #### L 501.2450, L501.5200, L500.3400, L500.2500, L100.0100, L700.6800 #### [facility] [address] [place], [address] Hemoglobin (Bld) [Mass/Vol] 12.8 g/dL Normal 12.0-15.0 [facility] Comment on above: Performed By: #### L 501.2450, L501.5200, L500.3400, L500.2500, L100.0100, L700.6800 #### [facility] [address] [place], [address] IG% 0.400 Normal 0.0-0.9 [facility] Comment on above: Result Comment: IG% - Immature Granulocytes (promyelocytes, myelocytes and metamyelocytes) > 1% indicates that a LEFT SHIFT is Present. Performed By: #### L 501.2450, L501.5200, L500.3400, L500.2500, L100.0100, L700.6800 #### [facility] [address] [place], [address] Lymphocytes/100 WBC (Bld) 29.5 % Normal 19-41 [facility] Comment on above: Performed By: #### L 501.2450, L501.5200, L500.3400, L500.2500, L100.0100, L700.6800 #### [facility] [address] [place], [address] MCH (RBC) [Entitic mass] 27.6 pg Normal 27.0-32.0 [facility] Comment on above: Performed By: #### L 501.2450, L501.5200, L500.3400, L500.2500, L100.0100, L700.6800 #### [facility] [address] [place], [address] MCHC (RBC) [Mass/Vol] 33.3 g/dL Normal 32-36 [facility] Comment on above: Performed By: #### L 501.2450, L501.5200, L500.3400, L500.2500, L100.0100, L700.6800 #### [facility] [address] [place], [address] MCV (RBC) [Entitic vol] 82.9 fL Normal 81-99 [facility] Comment on above: Performed By: #### L 501.2450, L501.5200, L500.3400, L500.2500, L100.0100, L700.6800 #### [facility] [address] [place], [address] Monocytes/100 WBC (Bld) 3.3 % Normal 0-10 [facility] Comment on above: Performed By: #### L 501.2450, L501.5200, L500.3400, L500.2500, L100.0100, L700.6800 #### [facility] [address] [place], [address] Neutrophils/100 WBC (Bld) 61.7 % Normal 47-70 [facility] Comment on above: Performed By: #### L 501.2450, L501.5200, L500.3400, L500.2500, L100.0100, L700.6800 #### [facility] [address] [place], [address] Nucleated RBC (Bld) [#/Vol] 0 10*3/uL Normal 0-5 [facility] Comment on above: Performed By: #### L 501.2450, L501.5200, L500.3400, L500.2500, L100.0100, L700.6800 #### [facility] [address] [place], [address] Platelet mean volume (Bld) [Entitic vol] 8.6 fL Normal 6.2-12.0 [facility] Comment on above: Performed By: #### L 501.2450, L501.5200, L500.3400, L500.2500, L100.0100, L700.6800 #### [facility] [address] [place], [address] Platelets (Bld) [#/Vol] 382 10*3/uL Normal 150-450 [facility] Comment on above: Performed By: #### L 501.2450, L501.5200, L500.3400, L500.2500, L100.0100, L700.6800 #### [facility] [address] [place], [address] RBC (Bld) [#/Vol] 4.63 10*6/uL Normal 4.2-5.4 [facility] Comment on above: Performed By: #### L 501.2450, L501.5200, L500.3400, L500.2500, L100.0100, L700.6800 #### [facility] [address] [place], [address] RDW SD 41.4 fl Normal 35.1-43.9 [facility] Comment on above: Performed By: #### L 501.2450, L501.5200, L500.3400, L500.2500, L100.0100, L700.6800 #### [facility] [address] [place], [address] WBC (Bld) [#/Vol] 9.6 10*3/uL Normal 4.4-11.0 [facility] Comment on above: Performed By: #### L 501.2450, L501.5200, L500.3400, L500.2500, L100.0100, L700.6800 #### [facility] [address] [place], [address] Comprehensive Metabolic Prof ilon 09-03-2024 Albumin [Mass/Vol] 4.3 g/dL Normal 3.5-5.0 [facility] Comment on above: Performed By: #### L 501.2450, L501.5200, L500.3400, L500.2500, L100.0100, L700.6800 #### [facility] [address] [place], [address] Albumin/Globulin [Mass ratio] 1.4 {ratio} Normal 0.9-2.4 [facility] Comment on above: Performed By: #### L 501.2450, L501.5200, L500.3400, L500.2500, L100.0100, L700.6800 #### [facility] [address] [place], [address] ALK PHOS 112 U/L High 35-104 [facility] Comment on above: Performed By: #### L 501.2450, L501.5200, L500.3400, L500.2500, L100.0100, L700.6800 #### [facility] [address] [place], [address] ALT [Catalytic activity/Vol] 16 U/L Normal <=34 [facility] Comment on above: Performed By: #### L 501.2450, L501.5200, L500.3400, L500.2500, L100.0100, L700.6800 #### [facility] [address] [place], [address] AST [Catalytic activity/Vol] 23 U/L Normal <=31 [facility] Comment on above: Performed By: #### L 501.2450, L501.5200, L500.3400, L500.2500, L100.0100, L700.6800 #### [facility] [address] [place], [address] Bilirubin [Mass/Vol] 0.49 mg/dL Normal 0.00-1.30 [facility] Comment on above: Performed By: #### L 501.2450, L501.5200, L500.3400, L500.2500, L100.0100, L700.6800 #### [facility] [address] [place], [address] BUN/CRE 17.9 RATIO Normal 10-20 [facility] Comment on above: Performed By: #### L 501.2450, L501.5200, L500.3400, L500.2500, L100.0100, L700.6800 #### [facility] [address] [place], [address] Calcium [Mass/Vol] 9.4 mg/dL Normal 7.6-11.0 [facility] Comment on above: Performed By: #### L 501.2450, L501.5200, L500.3400, L500.2500, L100.0100, L700.6800 #### [facility] [address] [place], [address] Chloride [Moles/Vol] 105 mmol/L Normal 98-108 [facility] Comment on above: Performed By: #### L 501.2450, L501.5200, L500.3400, L500.2500, L100.0100, L700.6800 #### [facility] [address] [place], [address] CO2 [Moles/Vol] 21.8 mmol/L Normal 21.0-32.0 [facility] Comment on above: Performed By: #### L 501.2450, L501.5200, L500.3400, L500.2500, L100.0100, L700.6800 #### [facility] [address] [place], [address] Creatinine [Mass/Vol] 0.70 mg/dL Normal 0.70-1.20 [facility] Comment on above: Performed By: #### L 501.2450, L501.5200, L500.3400, L500.2500, L100.0100, L700.6800 #### [facility] [address] [place], [place], [id number] GAP 12 Normal 5-15 [facility] Comment on above: Performed By: #### L 501.2450, L501.5200, L500.3400, L500.2500, L100.0100, L700.6800 #### [facility] [address] [place], [place], [address] GFR/1.73 sq M.predicted among non-blacks MDRD (S/P/Bld) [Vol rate/Area] 126 mL/min/{1.73_m2} Normal >60 [facility] Comment on above: Result Comment: mL/m in/1.73m2 CKD-EPI Creatinine Equation (2020) Performed By: #### L 501.2450, L501.5200, L500.3400, L500.2500, L100.0100, L700.6800 #### [facility] [address] [place], [place], [address] Globulin (S) [Mass/Vol] 3.0 g/dL Normal 2.2-4.2 [facility] Comment on above: Performed By: #### L 501.2450, L501.5200, L500.3400, L500.2500, L100.0100, L700.6800 #### [facility] [address] [place], [place], [id number] Glucose [Mass/Vol] 105 mg/dL High 70-99 [facility] Comment on above: Performed By: #### L 501.2450, L501.5200, L500.3400, L500.2500, L100.0100, L700.6800 #### [facility] [address] [place], [address] Potassium [Moles/Vol] 4.1 mmol/L Normal 3.3-5.1 [facility] Comment on above: Performed By: #### L 501.2450, L501.5200, L500.3400, L500.2500, L100.0100, L700.6800 #### [facility] [address] [place], [address] Sodium [Moles/Vol] 139 mmol/L Normal 133-145 [facility] Comment on above: Performed By: #### L 501.2450, L501.5200, L500.3400, L500.2500, L100.0100, L700.6800 #### [facility] [address] [place], [address] T PROT 7.3 g/dL Normal 5.9-8.4 [facility] Comment on above: Performed By: #### L 501.2450, L501.5200, L500.3400, L500.2500, L100.0100, L700.6800 #### [facility] [address] [place], [address] Urea nitrogen [Mass/Vol] 13 mg/dL Normal 4-19 [facility] Comment on above: Performed By: #### L 501.2450, L501.5200, L500.3400, L500.2500, L100.0100, L700.6800 #### [facility] [address] [place], [address] L506.1001on 09-03-2024 Vitamin D 25-OH 13.9 ng/mL Low 30-100 [facility] Comment on above: Result Comment: Janett min D Status Deficiency: <20 ng/mL (50nmol/L) Insufficiency: 20-30 ng/mL (50-75 nmol/L) Sufficiency: 30-100 ng/mL (75-250 nmol/L) Toxicity: >100 ng/mL (>250 nmol/L) Performed By: #### L 501.2450, L501.5200, L500.3400, L500.2500, L100.0100, L700.6800 #### [facility] [address] [place], [address] Thyroid Stim Hormone (TSH)on 09-03-2024 TSH 1.920 uIU/mL Normal 0.300-4.200 [facility] Comment on above: Performed By: #### L 501.2450, L501.5200, L500.3400, L500.2500, L100.0100, L700.6800 #### [facility] [address] [place], [place], [id number] Venous Duplex US, Unilateral on 09-03-2024 Venous Duplex US, Unilateral [facility] Cardi[facility] Services [address] [place] [address] Venous Duplex US, Unilateral 09/03/24 1241 MR#: [id number] Acct: [id number] Name: ALINA MALIK Rep #: [id number] : 2005 19 From: Josesito Nair MD Attending Dr: Cristo Cox [facility] MARINE TOWER OPERATOR-C Status: REG CLI Ordering Dr: Cristo Cox [facility] MARINE TOWER OPERATOR-C Date: 09/03/24 Location: CVS Sex: F C Admitted: Reason For Study Reason For Study: Left leg pain Procedure LEFT This is a venous duplex using B-mode, color flow and GSV is normal. spectral Doppler. CFV is compressible, spontaneous, phasic, competent, Exam performed in department. and demonstrates normal augmentation. A preliminary report was called and/or faxed to Kenny FV is compressible, spontaneous, phasic, competent MARINE TOWER OPERATOR-C. and demonstrates normal augmentation. POP V is [...] Cox Referring Physician: Nikki Olsen Performed By: Isidra Poon RVT 09/03/24 1644 Date Josesito Nair MD CC: [facility] MARINE TOWER OPERATOR-C Nikki Olsen; Cristo [facility] MARINE TOWER OPERATOR-C Kenny Date Dictated: 09/03/24 1241 Date Transcribed: 09/03/24 164 Interrelated Special Education Teacher: Signed Normal [facility] ALEJANDRINA Comprehensive Panelon ANTI-DNA (DS)AB 1 IU/mL Normal 0-9 [facility] Comment on above: Result Comment: Nega tive <5 Equivocal 5 - 9 Positive >9 Performed By: #### L 501.2450, L501.5200, L500.3400, L500.2500, L100.0100, L700.6800 #### [facility] [address] [place], [place], [id number] ANTISCLERODERM <0.2 Normal 0.0-0.9 [facility] Comment on above: Performed By: #### L 501.2450, L501.5200, L500.3400, L500.2500, L100.0100, L700.6800 #### [facility] [address] [place], [place], [id number] BNP,B-Type NATRIURETIC PEPTI Checo 08-05-2024 Natriuretic peptide B (Bld) [Mass/Vol] 53.2 pg/mL Normal 0-100 [facility] Comment on above: Performed By: #### L 501.2450, L501.5200, L500.3400, L500.2500, L100.0100, L700.6800 #### [facility] [address] [place], [address] CRPon 08-05-2024 C-REACTIVE PROT 21.10 mg/L High 0.0-3.0 [facility] Comment on above: Result Comment: C-Re active Protein (CRP) provides useful information for the diagnosis, therapy and monitoring of inflammatory processes and associated diseases. For the evaluation of Relative Risk for Cardiovascular Disease, a High Sensitivity CRP (HSCRP) should be ordered. Performed By: #### L 501.2450, L501.5200, L500.3400, L500.2500, L100.0100, L700.6800 #### [facility] [address] [place], [place], [id number] Erythrocyte Sed Rateon 08-05 SED RATE 14 mm/hr Normal 0-30 [facility] Comment on above: Performed By: #### L 501.2450, L501.5200, L500.3400, L500.2500, L100.0100, L700.6800 #### [facility] [address] [place], [place], [id number] Hemoglobin A1con 08-05-2024 HbA1c (Bld) [Mass fraction] 5.2 % Normal 3.8-5.6 [facility] Comment on above: Result Comment: Norm al < 5.7 % Prediabetic 5.7 - 6.4 % Diabetic >or= 6.5 % Please note range changes. Performed By: #### L 501.2450, L501.5200, L500.3400, L500.2500, L100.0100, L700.6800 #### [facility] [address] [place], [place], [id number] Thyroid Stim Hormone (TSH)on 08-05-2024 TSH 1.870 uIU/mL Normal 0.358-3.740 [facility] Comment on above: Performed By: #### L 501.2450, L501.5200, L500.3400, L500.2500, L100.0100, L700.6800 #### [facility] [address] [place], [place], [id number] ANTINUCLEAR ANTIBODIES DIREC Ton 07-10-2024 ALEJANDRINA,DIRECT Negative Normal Negative [facility] Comment on above: Result Comment: Perf ormed at: [facility] [id number] Paper Supervisor: Que Cruz PhD, Phone: [phone] Performed By: #### L 501.2450, L501.5200, L500.3400, L500.2500, L100.0100, L700.6800 #### [facility] [address] [place], [address] BNP,B-Type NATRIURETIC PEPTI Checo 07-10-2024 Natriuretic peptide B (Bld) [Mass/Vol] 7.9 pg/mL Normal 0-100 [facility] Comment on above: Performed By: #### L 501.2450, L501.5200, L500.3400, L500.2500, L100.0100, L700.6800 #### [facility] [address] [place], [place], [id number] Basic Metabolic Profile (BMP )on 07-10-2024 BUN/CRE 18.4 RATIO Normal 10-20 [facility] Comment on above: Order Comment: 'TROP ' Serial specimen #1, #2 or #3: 1 Performed By: #### L 501.2450, L501.5200, L500.3400, L500.2500, L100.0100, L700.6800 #### [facility] [address] [place], [address] CA,Total 9.2 mg/dL Normal 8.5-10.1 [facility] Comment on above: Order Comment: 'TROP ' Serial specimen #1, #2 or #3: 1 Performed By: #### L 501.2450, L501.5200, L500.3400, L500.2500, L100.0100, L700.6800 #### [facility] [address] [place], [address] Chloride [Moles/Vol] 109 mmol/L High 98-107 [facility] Comment on above: Order Comment: 'TROP ' Serial specimen #1, #2 or #3: 1 Performed By: #### L 501.2450, L501.5200, L500.3400, L500.2500, L100.0100, L700.6800 #### [facility] [address] [place], [address] CO2 [Moles/Vol] 26.0 mmol/L Normal 21.0-32.0 [facility] Comment on above: Order Comment: 'TROP ' Serial specimen #1, #2 or #3: 1 Performed By: #### L 501.2450, L501.5200, L500.3400, L500.2500, L100.0100, L700.6800 #### [facility] [address] [place], [address] Creatinine [Mass/Vol] 0.71 mg/dL Normal 0.55-1.02 [facility] Comment on above: Order Comment: 'TROP ' Serial specimen #1, #2 or #3: 1 Result Comment: The validity of the calculated GFR GFRAA in patients over 70 years has not been determined. Clinical correlation is essential. Performed By: #### L 501.2450, L501.5200, L500.3400, L500.2500, L100.0100, L700.6800 #### [facility] [address] [place], [address] ECRCL 173.85 ml/min Normal [facility] Comment on above: Order Comment: 'TROP ' Serial specimen #1, #2 or #3: 1 Performed By: #### L 501.2450, L501.5200, L500.3400, L500.2500, L100.0100, L700.6800 #### [facility] [address] [place], [address] EST GFR - AA 134 mL/min Normal >60 [facility] Comment on above: Order Comment: 'TROP ' Serial specimen #1, #2 or #3: 1 Result Comment: Afri can Austrian GFR Calc Performed By: #### L 501.2450, L501.5200, L500.3400, L500.2500, L100.0100, L700.6800 #### [facility] [address] [place], [address] GAP 5 Normal 5-15 [facility] Comment on above: Order Comment: 'TROP ' Serial specimen #1, #2 or #3: 1 Performed By: #### L 501.2450, L501.5200, L500.3400, L500.2500, L100.0100, L700.6800 #### [facility] [address] [place], [address] GFR/1.73 sq M.predicted among non-blacks MDRD (S/P/Bld) [Vol rate/Area] 111 mL/min/{1.73_m2} Normal >60 [facility] Comment on above: Order Comment: 'TROP ' Serial specimen #1, #2 or #3: 1 Result Comment: Non- GFR Calc Performed By: #### L 501.2450, L501.5200, L500.3400, L500.2500, L100.0100, L700.6800 #### [facility] [address] [place], [address] Glucose [Mass/Vol] 114 mg/dL High 74-106 [facility] Comment on above: Order Comment: 'TROP ' Serial specimen #1, #2 or #3: 1 Result Comment: Fast ing Glucose result from 100 to 125 mg/dL suggests IMPAIRED HOMEOSTASIS per A.D.A. criteria. Performed By: #### L 501.2450, L501.5200, L500.3400, L500.2500, L100.0100, L700.6800 #### [facility] [address] [place], [address] Potassium [Moles/Vol] 3.9 mmol/L Normal 3.5-5.1 [facility] Comment on above: Order Comment: 'TROP ' Serial specimen #1, #2 or #3: 1 Performed By: #### L 501.2450, L501.5200, L500.3400, L500.2500, L100.0100, L700.6800 #### [facility] [address] [place], [address] Sodium [Moles/Vol] 140 mmol/L Normal 136-145 [facility] Comment on above: Order Comment: 'TROP ' Serial specimen #1, #2 or #3: 1 Performed By: #### L 501.2450, L501.5200, L500.3400, L500.2500, L100.0100, L700.6800 #### [facility] [address] [place], [address] Urea nitrogen [Mass/Vol] 13 mg/dL Normal 7-18 [facility] Comment on above: Order Comment: 'TROP ' Serial specimen #1, #2 or #3: 1 Performed By: #### L 501.2450, L501.5200, L500.3400, L500.2500, L100.0100, L700.6800 #### [facility] [address] [place], [address] CBC W/Diff, Automatedon - Absolute Lymph 2.79 X10 3/uL Normal 0.83-4.51 [facility] Comment on above: Performed By: #### L 501.2450, L501.5200, L500.3400, L500.2500, L100.0100, L700.6800 #### [facility] [address] [place], [address] Absolute Neut 7.0 X10 3/uL Normal 2.0-7.7 [facility] Comment on above: Performed By: #### L 501.2450, L501.5200, L500.3400, L500.2500, L100.0100, L700.6800 #### [facility] [address] [place], [address] Basophils/100 WBC (Bld) 0.5 % Normal 0-1 [facility] Comment on above: Performed By: #### L 501.2450, L501.5200, L500.3400, L500.2500, L100.0100, L700.6800 #### [facility] [address] [place], [address] Eosinophils/100 WBC (Bld) 2.7 % Normal 0-5 [facility] Comment on above: Performed By: #### L 501.2450, L501.5200, L500.3400, L500.2500, L100.0100, L700.6800 #### [facility] [address] [place], [address] Erythrocyte distribution width (RBC) [Ratio] 14.1 % Normal 11.6-14.6 [facility] Comment on above: Performed By: #### L 501.2450, L501.5200, L500.3400, L500.2500, L100.0100, L700.6800 #### [facility] [address] [place], [address] Hematocrit (Bld) [Volume fraction] 37.8 % Normal 37-47 [facility] Comment on above: Performed By: #### L 501.2450, L501.5200, L500.3400, L500.2500, L100.0100, L700.6800 #### [facility] [address] [place], [address] Hemoglobin (Bld) [Mass/Vol] 12.7 g/dL Normal 12.0-15.0 [facility] Comment on above: Performed By: #### L 501.2450, L501.5200, L500.3400, L500.2500, L100.0100, L700.6800 #### [facility] [address] [place], [address] IG% 0.800 Normal 0.0-0.9 [facility] Comment on above: Result Comment: IG% - Immature Granulocytes (promyelocytes, myelocytes and metamyelocytes) > 1% indicates that a LEFT SHIFT is Present. Performed By: #### L 501.2450, L501.5200, L500.3400, L500.2500, L100.0100, L700.6800 #### [facility] [address] [place], [address] Lymphocytes/100 WBC (Bld) 26.3 % Normal 19-41 [facility] Comment on above: Performed By: #### L 501.2450, L501.5200, L500.3400, L500.2500, L100.0100, L700.6800 #### [facility] [address] [place], [address] MCH (RBC) [Entitic mass] 28.0 pg Normal 27.0-32.0 [facility] Comment on above: Performed By: #### L 501.2450, L501.5200, L500.3400, L500.2500, L100.0100, L700.6800 #### [facility] [address] [place], [address] MCHC (RBC) [Mass/Vol] 33.6 g/dL Normal 32-36 [facility] Comment on above: Performed By: #### L 501.2450, L501.5200, L500.3400, L500.2500, L100.0100, L700.6800 #### [facility] [address] [place], [address] MCV (RBC) [Entitic vol] 83.3 fL Normal 81-99 [facility] Comment on above: Performed By: #### L 501.2450, L501.5200, L500.3400, L500.2500, L100.0100, L700.6800 #### [facility] [address] [place], [address] Monocytes/100 WBC (Bld) 3.1 % Normal 0-10 [facility] Comment on above: Performed By: #### L 501.2450, L501.5200, L500.3400, L500.2500, L100.0100, L700.6800 #### [facility] [address] [place], [address] Neutrophils/100 WBC (Bld) 66.6 % Normal 47-70 [facility] Comment on above: Performed By: #### L 501.2450, L501.5200, L500.3400, L500.2500, L100.0100, L700.6800 #### [facility] [address] [place], [address] Nucleated RBC (Bld) [#/Vol] 0 10*3/uL Normal 0-5 [facility] Comment on above: Performed By: #### L 501.2450, L501.5200, L500.3400, L500.2500, L100.0100, L700.6800 #### [facility] [address] [place], [address] Platelet mean volume (Bld) [Entitic vol] 8.5 fL Normal 6.2-12.0 [facility] Comment on above: Performed By: #### L 501.2450, L501.5200, L500.3400, L500.2500, L100.0100, L700.6800 #### [facility] [address] [place], [address] Platelets (Bld) [#/Vol] 349 10*3/uL Normal 150-450 [facility] Comment on above: Performed By: #### L 501.2450, L501.5200, L500.3400, L500.2500, L100.0100, L700.6800 #### [facility] [address] [place], [address] RBC (Bld) [#/Vol] 4.54 10*6/uL Normal 4.2-5.4 [facility] Comment on above: Performed By: #### L 501.2450, L501.5200, L500.3400, L500.2500, L100.0100, L700.6800 #### [facility] [address] [place], [address] RDW SD 42.8 fl Normal 35.1-43.9 [facility] Comment on above: Performed By: #### L 501.2450, L501.5200, L500.3400, L500.2500, L100.0100, L700.6800 #### [facility] [address] [place], [address] WBC (Bld) [#/Vol] 10.6 10*3/uL Normal 4.4-11.0 [facility] Comment on above: Performed By: #### L 501.2450, L501.5200, L500.3400, L500.2500, L100.0100, L700.6800 #### [facility] [address] [place], [place], [id number] CCP IgG Antibodieson 025 CCP IgG Ab. 0 units Normal 0-19 [facility] Comment on above: Result Comment: Nega tive <20 Weak positive 20 - 39 Moderate positive 40 - 59 Strong positive >59 Performed at: [address] [id number] Paper Supervisor: Que Cruz PhD, Phone: [phone] Performed By: #### L 501.2450, L501.5200, L500.3400, L500.2500, L100.0100, L700.6800 #### [facility] [address] [place], [place], [address] CNOVon 07-10-2024 CNOV Office Visit (UCTR ) ALINA MALIK ([id number]) 1 F Date Time Provider Department 07/10/24 10:00 AM [facility] During your visit today, we [...] says labs were OK. Primary care at [facility]. PAST MEDICAL HISTORY Diagnosis Date Anxiety state [...] declines EMS transfer and will to to [facility] ED. Joe Christiansen MD Allergies As [...] 08/26/2023 Level of Service: OFFICE/OUTPATIENT ESTABLISHED LOW [facility] 20 MIN [[id number]] Encounter Status:Closed by [facility] on (more content not included)... Normal [facility] CTA Chest W/WO Contraston CTA Chest W/WO Contrast [facility] Imaging Services [address] [place] [address] CTA Chest W/WO Contrast MR#: [id number] Acct: [id number] Name: ALINA MALIK Rep #: [id number] : 2005 F 19 From: Demetris tian MD PCP: Nikki Olsen Maverick, MARINE TOWER OPERATOR-C Status: REG ER Study: CTA Chest W/WO Contrast Date of Exam: 07/10/24 Exam# [id number] Ordering Dr: Karen Mayes [id number] STUDY: CTA CHEST REASON FOR EXAM: Female, [...] Signed: Demetris Riojas MD at 14:00 EST Reading Location ID and State: [address] [place] [address] , Service support , CC: [facility] MARINE TOWER OPERATOR-C Nikki Olsen; MONICA Jacinto Interrelated Special Education Teacher: Signed Normal [facility] Chest PA and Lateralon 07-10 Chest PA and Lateral [facility] Imaging Services [address] [place], [place] [address] Chest PA and Lateral MR#: [id number] Acct: [id number] Name: ALINA MALIK Rep #: [id number] : 2005 F 19 From: Demetris tian MD PCP: Nikki Olsen Maverick, MARINE TOWER OPERATOR-C Status: REG ER Study: Chest PA and Lateral Date of Exam: 07/10/24 Exam# [id number] Ordering Dr: Karen Mayes [id number] STUDY: X-RAY CHEST REASON FOR EXAM: Female, [...] 12:23 EST Reading Location ID and State: [facility] / [place] , Service support , CC: [facility] JACKELIN Olsen; MONICA Jacinto Interrelated Special Education Teacher: Signed Normal [facility] D-Dimer Quantitative (DVT/PE )on 07-10-2024 D-DIMER QUANT 0.59 FEU/ug/m Invalid Interpretation Code 0.27-0.49 [facility] Comment on above: Result Comment: D-Di emani ELEVATED (>0.49): Additional studies and clinical assessments are indicated to conclude diagnosis of: Deep Vein Thrombosis (DVT) or Pulmonary Embolism (PE) CRITICAL VALUE CALLED TO Jose LOZANO (2) 07/10/24 1203 Liana Lawton. RESULTS READ BACK BY . Performed By: #### L 501.2450, L501.5200, L500.3400, L500.2500, L100.0100, L700.6800 #### [facility] [address] [place], [address] Emergency Department Summary on 07-10-2024 Emergency Department Summary [facility] Medical Records Department [address] [place] [address] Emergency Department Summary 07/10/24 MR#: [id number] Acct: [id number] Name: ALINA MALIK Rep #: [id number] : 2005 19 From: Arvin Segundo DO PCP: Nikki Olsen Maverick, MARINE TOWER OPERATOR-C Status:DEP ER Location: ED HPI History of [...] abdominal pain, or diarrhea. She sees a shank piece tacker for unspecified problems and does not have a primary care doctor. PFSH PFS Medical History EP (ectopic ) Palpitations Wears [...] MDM Narrative (more content not included)... Normal [facility] L501.4020on 07-10-2024 TROPONIN-I HS < 3 Low 3.0-54.0 [facility] Comment on above: Order Comment: 'TROP ' Serial specimen #1, #2 or #3: 1 Result Comment: Plea se Note: New Test Units and Gender Specific Reference Ranges. For more information see Policy Stat Procedure [place] High Sensitivity Troponin (TNIH) and attachments. Performed By: #### L 501.2450, L501.5200, L500.3400, L500.2500, L100.0100, L700.6800 #### [facility] [address] [place], [address] ,Serum,hCG Quali.on 07-10-2024 HCG, SERUM QUAL Negative Normal [facility] Comment on above: Performed By: #### L 501.2450, L501.5200, L500.3400, L500.2500, L100.0100, L700.6800 #### [facility] [address] [place], [address] Quantiferon TB-Gold+on 07-10 QFT MITOGEN DOMI > 10.00 Normal . [facility] Comment on above: Performed By: #### L 501.2450, L501.5200, L500.3400, L500.2500, L100.0100, L700.6800 #### [facility] [address] [place], [address] QFT NIL VALUE 0.01 IU/mL Normal . [facility] Comment on above: Performed By: #### L 501.2450, L501.5200, L500.3400, L500.2500, L100.0100, L700.6800 #### [facility] [address] [place], [address] QFT TB GOLD+ Comment Normal . [facility] Comment on above: Result Comment: [place] tiFERON-TB [...] for the test. Performed By: #### L 501.2450, L501.5200, L500.3400, L500.2500, L100.0100, L700.6800 #### [facility] [address] [place], [address] QFT TB POS CRIT Negative Normal Negative [facility] Comment on above: Result Comment: No r [...] Chemiluminescence immunoassay methodology Performed By: #### L 501.2450, L501.5200, L500.3400, L500.2500, L100.0100, L700.6800 #### [facility] [address] [place], [address] QFT TB1+ AG DOMI 0.01 IU/mL Normal . [facility] Comment on above: Performed By: #### L 501.2450, L501.5200, L500.3400, L500.2500, L100.0100, L700.6800 #### [facility] [address] [place], [address] QFT TB2+ AG DOMI 0.01 IU/mL Normal . [facility] Comment on above: Performed By: #### L 501.2450, L501.5200, L500.3400, L500.2500, L100.0100, L700.6800 #### [facility] [address] [place], [address] CBC W/Diff, Automatedon 06-24 Absolute Lymph 3.18 X10 3/uL Normal 0.83-4.51 [facility] Comment on above: Performed By: #### L 501.2450, L501.5200, L500.3400, L500.2500, L100.0100, L700.6800 #### [facility] [address] [place], [address] Absolute Neut 5.5 X10 3/uL Normal 2.0-7.7 [facility] Comment on above: Performed By: #### L 501.2450, L501.5200, L500.3400, L500.2500, L100.0100, L700.6800 #### [facility] [address] [place], [address] Basophils/100 WBC (Bld) 0.7 % Normal 0-1 [facility] Comment on above: Performed By: #### L 501.2450, L501.5200, L500.3400, L500.2500, L100.0100, L700.6800 #### [facility] [address] [place], [address] Eosinophils/100 WBC (Bld) 3.5 % Normal 0-5 [facility] Comment on above: Performed By: #### L 501.2450, L501.5200, L500.3400, L500.2500, L100.0100, L700.6800 #### [facility] [address] [place], [address] Erythrocyte distribution width (RBC) [Ratio] 14.2 % Normal 11.6-14.6 [facility] Comment on above: Performed By: #### L 501.2450, L501.5200, L500.3400, L500.2500, L100.0100, L700.6800 #### [facility] [address] [place], [address] Hematocrit (Bld) [Volume fraction] 35.2 % Low 37-47 [facility] Comment on above: Performed By: #### L 501.2450, L501.5200, L500.3400, L500.2500, L100.0100, L700.6800 #### [facility] [address] [place], [address] Hemoglobin (Bld) [Mass/Vol] 11.7 g/dL Low 12.0-15.0 [facility] Comment on above: Performed By: #### L 501.2450, L501.5200, L500.3400, L500.2500, L100.0100, L700.6800 #### [facility] [address] [facility] [place], [address] IG% 0.300 Normal 0.0-0.9 [facility] Comment on above: Result Comment: IG% - Immature Granulocytes (promyelocytes, myelocytes and metamyelocytes) > 1% indicates that a LEFT SHIFT is Present. Performed By: #### L 501.2450, L501.5200, L500.3400, L500.2500, L100.0100, L700.6800 #### [facility] [address] [place], [address] Lymphocytes/100 WBC (Bld) 33.8 % Normal 19-41 [facility] Comment on above: Performed By: #### L 501.2450, L501.5200, L500.3400, L500.2500, L100.0100, L700.6800 #### [facility] [address] [place], [address] MCH (RBC) [Entitic mass] 27.6 pg Normal 27.0-32.0 [facility] Comment on above: Performed By: #### L 501.2450, L501.5200, L500.3400, L500.2500, L100.0100, L700.6800 #### [facility] [address] [place], [address] MCHC (RBC) [Mass/Vol] 33.2 g/dL Normal 32-36 [facility] Comment on above: Performed By: #### L 501.2450, L501.5200, L500.3400, L500.2500, L100.0100, L700.6800 #### [facility] [address] [place], [address] MCV (RBC) [Entitic vol] 83.0 fL Normal 81-99 [facility] Comment on above: Performed By: #### L 501.2450, L501.5200, L500.3400, L500.2500, L100.0100, L700.6800 #### [facility] [address] [place], [address] Monocytes/100 WBC (Bld) 3.3 % Normal 0-10 [facility] Comment on above: Performed By: #### L 501.2450, L501.5200, L500.3400, L500.2500, L100.0100, L700.6800 #### [facility] [address] [place], [address] Neutrophils/100 WBC (Bld) 58.4 % Normal 47-70 [facility] Comment on above: Performed By: #### L 501.2450, L501.5200, L500.3400, L500.2500, L100.0100, L700.6800 #### [facility] [address] [place], [address] Nucleated RBC (Bld) [#/Vol] 0 10*3/uL Normal 0-5 [facility] Comment on above: Performed By: #### L 501.2450, L501.5200, L500.3400, L500.2500, L100.0100, L700.6800 #### [facility] [address] [place], [address] Platelet mean volume (Bld) [Entitic vol] 8.8 fL Normal 6.2-12.0 [facility] Comment on above: Performed By: #### L 501.2450, L501.5200, L500.3400, L500.2500, L100.0100, L700.6800 #### [facility] [address] [place], [address] Platelets (Bld) [#/Vol] 346 10*3/uL Normal 150-450 [facility] Comment on above: Performed By: #### L 501.2450, L501.5200, L500.3400, L500.2500, L100.0100, L700.6800 #### [facility] [address] [place], [address] RBC (Bld) [#/Vol] 4.24 10*6/uL Normal 4.2-5.4 [facility] Comment on above: Performed By: #### L 501.2450, L501.5200, L500.3400, L500.2500, L100.0100, L700.6800 #### [facility] [address] [place], [address] RDW SD 42.7 fl Normal 35.1-43.9 [facility] Comment on above: Performed By: #### L 501.2450, L501.5200, L500.3400, L500.2500, L100.0100, L700.6800 #### [facility] [address] [place], [address] WBC (Bld) [#/Vol] 9.4 10*3/uL Normal 4.4-11.0 [facility] Comment on above: Performed By: #### L 501.2450, L501.5200, L500.3400, L500.2500, L100.0100, L700.6800 #### [facility] [address] [place], [address] Comprehensive Metabolic Prof vton 07-08-2024 Albumin [Mass/Vol] 3.6 g/dL Normal 3.2-5.0 [facility] Comment on above: Performed By: #### L 501.2450, L501.5200, L500.3400, L500.2500, L100.0100, L700.6800 #### [facility] [address] [place], [address] Albumin/Globulin [Mass ratio] 1.0 {ratio} Normal 0.9-2.4 [facility] Comment on above: Performed By: #### L 501.2450, L501.5200, L500.3400, L500.2500, L100.0100, L700.6800 #### [facility] [address] [place], [address] ALK P 103 U/L Normal 45-117 [facility] Comment on above: Performed By: #### L 501.2450, L501.5200, L500.3400, L500.2500, L100.0100, L700.6800 #### [facility] [address] [place], [address] ALT [Catalytic activity/Vol] 32 U/L Normal 13-56 [facility] Comment on above: Performed By: #### L 501.2450, L501.5200, L500.3400, L500.2500, L100.0100, L700.6800 #### [facility] [address] [place], [address] AST [Catalytic activity/Vol] 20 U/L Normal 15-37 [facility] Comment on above: Performed By: #### L 501.2450, L501.5200, L500.3400, L500.2500, L100.0100, L700.6800 #### [facility] [address] [place], [address] Bilirubin [Mass/Vol] 1.40 mg/dL High 0.20-1.00 [facility] Comment on above: Result Comment: For patients on eltrombopag therapy, use of Dimension [place] TBIL is not recommended. Performed By: #### L 501.2450, L501.5200, L500.3400, L500.2500, L100.0100, L700.6800 #### [facility] [address] [place], [address] BUN/CRE 14.7 RATIO Normal 10-20 [facility] Comment on above: Performed By: #### L 501.2450, L501.5200, L500.3400, L500.2500, L100.0100, L700.6800 #### [facility] [address] [place], [address] CA,Total 9.0 mg/dL Normal 8.5-10.1 [facility] Comment on above: Performed By: #### L 501.2450, L501.5200, L500.3400, L500.2500, L100.0100, L700.6800 #### [facility] [address] [place], [address] Chloride [Moles/Vol] 108 mmol/L High 98-107 [facility] Comment on above: Performed By: #### L 501.2450, L501.5200, L500.3400, L500.2500, L100.0100, L700.6800 #### [facility] [address] [place], [address] CO2 [Moles/Vol] 25.0 mmol/L Normal 21.0-32.0 [facility] Comment on above: Performed By: #### L 501.2450, L501.5200, L500.3400, L500.2500, L100.0100, L700.6800 #### [facility] [address] [place], [address] Creatinine [Mass/Vol] 0.68 mg/dL Normal 0.55-1.02 [facility] Comment on above: Result Comment: The validity of the calculated GFR GFRAA in patients over 70 years has not been determined. Clinical correlation is essential. Performed By: #### L 501.2450, L501.5200, L500.3400, L500.2500, L100.0100, L700.6800 #### [facility] [address] [place], [address] EST GFR - AA 139 mL/min Normal >60 [facility] Comment on above: Result Comment: Afri can Austrian GFR Calc Performed By: #### L 501.2450, L501.5200, L500.3400, L500.2500, L100.0100, L700.6800 #### [facility] [address] [place], [address] GAP 5 Normal 5-15 [facility] Comment on above: Performed By: #### L 501.2450, L501.5200, L500.3400, L500.2500, L100.0100, L700.6800 #### [facility] [address] [place], [address] GFR/1.73 sq M.predicted among non-blacks MDRD (S/P/Bld) [Vol rate/Area] 115 mL/min/{1.73_m2} Normal >60 [facility] Comment on above: Result Comment: Non- GFR Calc Performed By: #### L 501.2450, L501.5200, L500.3400, L500.2500, L100.0100, L700.6800 #### [facility] [address] [place], [address] Globulin (S) [Mass/Vol] 3.5 g/dL Normal 2.2-4.2 [facility] Comment on above: Performed By: #### L 501.2450, L501.5200, L500.3400, L500.2500, L100.0100, L700.6800 #### [facility] [address] [place], [address] Glucose [Mass/Vol] 93 mg/dL Normal 74-106 [facility] Comment on above: Performed By: #### L 501.2450, L501.5200, L500.3400, L500.2500, L100.0100, L700.6800 #### [facility] [address] [place], [address] Potassium [Moles/Vol] 3.7 mmol/L Normal 3.5-5.1 [facility] Comment on above: Performed By: #### L 501.2450, L501.5200, L500.3400, L500.2500, L100.0100, L700.6800 #### [facility] [address] [place], [address] Sodium [Moles/Vol] 138 mmol/L Normal 136-145 [facility] Comment on above: Performed By: #### L 501.2450, L501.5200, L500.3400, L500.2500, L100.0100, L700.6800 #### [facility] [address] [place], [address] T PROT 7.1 g/dL Normal 6.4-8.2 [facility] Comment on above: Performed By: #### L 501.2450, L501.5200, L500.3400, L500.2500, L100.0100, L700.6800 #### [facility] [address] [facility] [place], [address] Urea nitrogen [Mass/Vol] 10 mg/dL Normal 7-18 [facility] Comment on above: Performed By: #### L 501.2450, L501.5200, L500.3400, L500.2500, L100.0100, L700.6800 #### [facility] [address] [place], [address] Hepatitis B Surface Antibody on 07-08-2024 HEP B Surf Ab Non-Reactive Normal [facility] Comment on above: Result Comment: Non Reactive: Inconsistent with immunity less than <10 mIU/mL Reactive: Consistent with immunity greater than or equal to 10 mIU/mL Performed By: #### L 501.2450, L501.5200, L500.3400, L500.2500, L100.0100, L700.6800 #### [facility] [address] [place], [place], [address] Hepatitis B Surface Antigeno n 07-08-2024 HEP B Surf Ag Non-Reactive Normal Nonreactive [facility] Comment on above: Performed By: #### L 501.2450, L501.5200, L500.3400, L500.2500, L100.0100, L700.6800 #### [facility] [address] [place], [address] Hepatitis C Antibodyon 07-08 Hepatitis C AB Non-Reactive Normal Nonreactive [facility] Comment on above: Result Comment: Non Reactive: < 0.8 Equivocal: >/= 0.8 to < 1.0 Reactive: >/= 1.0 The CDC requires that a reactive/equivocal HCV antibody result be sent out for confirmation. HCV Quant by PCR testing. Performed By: #### L 501.2450, L501.5200, L500.3400, L500.2500, L100.0100, L700.6800 #### [facility] [address] [place], [address] Rheumatoid Factoron 07-08-19 25 RHEUMATOID FAC < 10.0 Normal <15 [facility] Comment on above: Performed By: #### L 501.2450, L501.5200, L500.3400, L500.2500, L100.0100, L700.6800 #### [facility] [address] [place], [place], [address] CRP, High Sensitivity [id number] on 06-30-2024 CRP, HIGH SENS 16.68 mg/L High 0.00-3.00 [facility] Comment on above: Result Comment: Rela tive Risk for Future Cardiovascular Event Low <1.00 Average 1.00 - 3.00 High >3.00 Performed at: [facility] [id number] Paper Supervisor: Que Cruz PhD, Phone: [phone] Performed By: #### L 501.2450, L501.5200, L500.3400, L500.2500, L100.0100, L700.6800 #### [facility] [address] [place], [place], [id number] Lyme Screen W/Reflex WBon LYME SCREEN Ab Negative Normal Negative [facility] Comment on above: Result Comment: Lyme antibodies not detected. Reflex testing is not indicated. No laboratory evidence of infection with B. burgdorferi (Lyme disease). Negative results may occur in patients recently infected (less than or equal to 14 days) with B. burgdorferi. If recent infection is suspected, repeat testing on a new sample collected in 7 to 14 days is recommended. Performed at: [facility] [id number] Paper Supervisor: Que Cruz PhD, Phone: [phone] Performed By: #### L 501.2450, L501.5200, L500.3400, L500.2500, L100.0100, L700.6800 #### [facility] [address] [place], [address] Emergency Department Summary on 06-24-2024 Emergency Department Summary [facility] Medical Records Department [address] [place] [address] Emergency Department Summary 06/24/24 MR#: [id number] Acct: [id number] Name: ALINA MALIK Rep #: [id number] : 2005 19 From: Tom Villar DO PCP: Nikki Olsen Maverick, MARINE TOWER OPERATOR-C Status:DEP ER Location: ED HPI History of [...] She states she has a appointment at [facility] in 1 month. She states that this is starting from an impacted wisdom tooth on the right lower side. [facility] Medical History EP (ectopic ) Palpitations [...] / O (more content not included)... Normal [facility] Office Visit Reporton 2023 Office Visit Report [facility] [address] [place] [address] OFFICE VISIT Date of Service: 06/23/24 MR#: [id number] Acct: [id number] Patient: ALINA MALIK Rep #: [id number] : 2005 Provider: MONICA Kate Age/Sex: 19/F Location: [facility] Status: Signed Intake Vital Signs 03/08/24 00:28 Height 1.6 m Intake Visit Reasons: Pain Chief Complaint: dental pain Allergies bupropion (From Wellbutrin) Allergy (Verified 08/21/23 04:00) Rash [facility] Medical History EP (ectopic ) Palpitations Wears [...] for a month - has appointment at [facility]. I recommended she call the [...] new complications, the patient should follow up [id number] with a clinician of the appropriate level of care. Medications: New amoxicillin-pot clavulanate 875-125 mg 1 TAB PO Q12H 14 tabs 0RF 06/23/24 0704 Date Christian Tabor Signature: Date (if applicable) CC: Normal [facility] ALEJANDRINA Comprehensive Panelon ALEJANDRINA TABLE Comment Normal . [facility] Comment on above: Result Comment: Auto antibody [...] Sm (anti-Bundy) SLE 15 - 30% --------- DYE HOUSE HELPER Mixed Connective Tissue Disease 95% (U1 nRNP, SLE 30 - 50% anti-ribonucleoprotein) Polymyositis and/or Dermatomyositis 20% --------- Scl-70 (antiDNA Scleroderma (diffuse) 20 - 35% topoisomerase) Crest 13% --------- Jaycee-1 Polymyositis and/or Dermatomyositis 20 - 40% --------- Centromere B Scleroderma - Crest variant 80% Performed By: #### L 501.5200, L700.6800, L500.2500, L100.0100, L501.9520 #### [facility] [place], [address] ANTI-CENT B AB <0.2 Normal 0.0-0.9 [facility] Comment on above: Performed By: #### L 501.5200, L700.6800, L500.2500, L100.0100, L501.9520 #### [facility] [address] [place], [address] ANTI-DNA (DS)AB 1 IU/mL Normal 0-9 [facility] Comment on above: Result Comment: Nega tive <5 Equivocal 5 - 9 Positive >9 Performed By: #### L 501.5200, L700.6800, L500.2500, L100.0100, L501.9520 #### [facility] [address] [place], [address] ANTI-JAYCEE-1 <0.2 Normal 0.0-0.9 [facility] Comment on above: Performed By: #### L 501.5200, L700.6800, L500.2500, L100.0100, L501.9520 #### [facility] [address] [place], [address] ANTI-SS-A < 0.2 Normal 0.0-0.9 [facility] Comment on above: Performed By: #### L 501.5200, L700.6800, L500.2500, L100.0100, L501.9520 #### [facility] [address] [place], [address] ANTI-SS-B < 0.2 Normal 0.0-0.9 [facility] Comment on above: Performed By: #### L 501.5200, L700.6800, L500.2500, L100.0100, L501.9520 #### [facility] [address] [place], [address] ANTICHROMATIN 0.2 AI Normal 0.0-0.9 [facility] Comment on above: Performed By: #### L 501.5200, L700.6800, L500.2500, L100.0100, L501.9520 #### [facility] [address] [place], [address] ANTISCLERODERM <0.2 Normal 0.0-0.9 [facility] Comment on above: Performed By: #### L 501.5200, L700.6800, L500.2500, L100.0100, L501.9520 #### [facility] [address] [place], [address] DYE HOUSE HELPER Ab 0.2 AI Normal 0.0-0.9 [facility] Comment on above: Performed By: #### L 501.5200, L700.6800, L500.2500, L100.0100, L501.9520 #### [facility] [address] [place], [address] BUNDY Ab <0.2 Normal 0.0-0.9 [facility] Comment on above: Performed By: #### L 501.5200, L700.6800, L500.2500, L100.0100, L501.9520 #### [facility] [address] [place], [address] CCP IgG Antibodieson 19-2 024 CCP IgG Ab. 0 units Normal 0-19 [facility] Comment on above: Result Comment: Nega tive <20 Weak positive 20 - 39 Moderate positive 40 - 59 Strong positive >59 Performed at: [address] [id number] Paper Supervisor: Que Cruz PhD, Phone: [phone] Performed By: #### L 501.5200, L700.6800, L500.2500, L100.0100, L501.9520 #### [facility] [place], [address] CRP, High Sensitivity 637025 on 06-11-2024 CRP, HIGH SENS 26.95 mg/L High 0.00-3.00 [facility] Comment on above: Result Comment: Resu lts confirmed on dilution. Relative Risk for Future Cardiovascular Event Low <1.00 Average 1.00 - 3.00 High >3.00 Performed at: [address] [id number] Paper Supervisor: Que Cruz PhD, Phone: [phone] Performed By: #### L 501.5200, L700.6800, L500.2500, L100.0100, L501.9520 #### [facility] [address] [place], [address] Vitamin B12on 06-11-2024 Cobalamin (Vitamin B12) [Mass/Vol] 721 pg/mL Normal 211-911 [facility] Comment on above: Performed By: #### L 501.5200, L700.6800, L500.2500, L100.0100, L501.9520 #### [facility] [address] [place], [address] Vitamin D,25 Hydroxyon 06-11 Vitamin D 25-OH 7.3 ng/mL Normal [facility] Comment on above: Result Comment: Janett min D 25(OH) Status Range Deficiency <20 ng/mL (50nmol/L) Insufficiency 20 - 30 ng/mL (50 - 75 nmol/L) Sufficiency 30 - 100 ng/mL (75 - 250 nmol/L) Toxicity >100 ng/mL (>250 nmol/L) Performed By: #### L 501.5200, L700.6800, L500.2500, L100.0100, L501.9520 #### [facility] [address] [place], [address] CBC W/Diff, Automatedon 05-24 Absolute Lymph 3.15 X10 3/uL Normal 0.83-4.51 [facility] Comment on above: Performed By: #### L 501.5200, L700.6800, L500.2500, L100.0100, L501.9520 #### [facility] [address] [place], [address] Absolute Neut 5.1 X10 3/uL Normal 2.0-7.7 [facility] Comment on above: Performed By: #### L 501.5200, L700.6800, L500.2500, L100.0100, L501.9520 #### [facility] [address] [place], [address] Basophils/100 WBC (Bld) 1.0 % Normal 0-1 [facility] Comment on above: Performed By: #### L 501.5200, L700.6800, L500.2500, L100.0100, L501.9520 #### [facility] [address] [place], [address] Eosinophils/100 WBC (Bld) 3.7 % Normal 0-5 [facility] Comment on above: Performed By: #### L 501.5200, L700.6800, L500.2500, L100.0100, L501.9520 #### [facility] [address] [place], [address] Erythrocyte distribution width (RBC) [Ratio] 14.1 % Normal 11.6-14.6 [facility] Comment on above: Performed By: #### L 501.5200, L700.6800, L500.2500, L100.0100, L501.9520 #### [facility] [address] [place], [address] Hematocrit (Bld) [Volume fraction] 36.5 % Low 37-47 [facility] Comment on above: Performed By: #### L 501.5200, L700.6800, L500.2500, L100.0100, L501.9520 #### [facility] [address] [place], [address] Hemoglobin (Bld) [Mass/Vol] 12.1 g/dL Normal 12.0-15.0 [facility] Comment on above: Performed By: #### L 501.5200, L700.6800, L500.2500, L100.0100, L501.9520 #### [facility] [address] [place], [address] IG% 0.600 Normal 0.0-0.9 [facility] Comment on above: Result Comment: IG% - Immature Granulocytes (promyelocytes, myelocytes and metamyelocytes) > 1% indicates that a LEFT SHIFT is Present. Performed By: #### L 501.5200, L700.6800, L500.2500, L100.0100, L501.9520 #### [facility] [address] [place], [address] Lymphocytes/100 WBC (Bld) 35.1 % Normal 19-41 [facility] Comment on above: Performed By: #### L 501.5200, L700.6800, L500.2500, L100.0100, L501.9520 #### [facility] [address] [place], [address] MCH (RBC) [Entitic mass] 27.9 pg Normal 27.0-32.0 [facility] Comment on above: Performed By: #### L 501.5200, L700.6800, L500.2500, L100.0100, L501.9520 #### [facility] [address] [place], [address] MCHC (RBC) [Mass/Vol] 33.2 g/dL Normal 32-36 [facility] Comment on above: Performed By: #### L 501.5200, L700.6800, L500.2500, L100.0100, L501.9520 #### [facility] [address] [place], [address] MCV (RBC) [Entitic vol] 84.3 fL Normal 81-99 [facility] Comment on above: Performed By: #### L 501.5200, L700.6800, L500.2500, L100.0100, L501.9520 #### [facility] [address] [place], [address] Monocytes/100 WBC (Bld) 3.2 % Normal 0-10 [facility] Comment on above: Performed By: #### L 501.5200, L700.6800, L500.2500, L100.0100, L501.9520 #### [facility] [address] [place], [address] Neutrophils/100 WBC (Bld) 56.4 % Normal 47-70 [facility] Comment on above: Performed By: #### L 501.5200, L700.6800, L500.2500, L100.0100, L501.9520 #### [facility] [address] [place], [address] Nucleated RBC (Bld) [#/Vol] 0 10*3/uL Normal 0-5 [facility] Comment on above: Performed By: #### L 501.5200, L700.6800, L500.2500, L100.0100, L501.9520 #### [facility] [address] [place], [address] Platelet mean volume (Bld) [Entitic vol] 8.7 fL Normal 6.2-12.0 [facility] Comment on above: Performed By: #### L 501.5200, L700.6800, L500.2500, L100.0100, L501.9520 #### [facility] [address] [place], [address] Platelets (Bld) [#/Vol] 316 10*3/uL Normal 150-450 [facility] Comment on above: Performed By: #### L 501.5200, L700.6800, L500.2500, L100.0100, L501.9520 #### [facility] [address] [place], [address] RBC (Bld) [#/Vol] 4.33 10*6/uL Normal 4.2-5.4 [facility] Comment on above: Performed By: #### L 501.5200, L700.6800, L500.2500, L100.0100, L501.9520 #### [facility] [address] [place], [address] RDW SD 43.4 fl Normal 35.1-43.9 [facility] Comment on above: Performed By: #### L 501.5200, L700.6800, L500.2500, L100.0100, L501.9520 #### [facility] [address] [place], [address] WBC (Bld) [#/Vol] 9.0 10*3/uL Normal 4.4-11.0 [facility] Comment on above: Performed By: #### L 501.5200, L700.6800, L500.2500, L100.0100, L501.9520 #### [facility] [address] [place], [address] Comprehensive Metabolic Prof [facility] 06-09-2024 Albumin [Mass/Vol] 3.2 g/dL Normal 3.2-5.0 [facility] Comment on above: Performed By: #### L 501.5200, L700.6800, L500.2500, L100.0100, L501.9520 #### [facility] [address] [place], [address] Albumin/Globulin [Mass ratio] 0.9 {ratio} Normal 0.9-2.4 [facility] Comment on above: Performed By: #### L 501.5200, L700.6800, L500.2500, L100.0100, L501.9520 #### [facility] [address] [place], [address] ALK P 118 U/L High 45-117 [facility] Comment on above: Performed By: #### L 501.5200, L700.6800, L500.2500, L100.0100, L501.9520 #### [facility] [address] [place], [address] ALT [Catalytic activity/Vol] 25 U/L Normal 13-56 [facility] Comment on above: Performed By: #### L 501.5200, L700.6800, L500.2500, L100.0100, L501.9520 #### [facility] [address] [place], [address] AST [Catalytic activity/Vol] 23 U/L Normal 15-37 [facility] Comment on above: Performed By: #### L 501.5200, L700.6800, L500.2500, L100.0100, L501.9520 #### [facility] [address] [place], [address] Bilirubin [Mass/Vol] 0.60 mg/dL Normal 0.20-1.00 [facility] Comment on above: Result Comment: For patients on eltrombopag therapy, use of Dimension [place] TBIL is not recommended. Performed By: #### L 501.5200, L700.6800, L500.2500, L100.0100, L501.9520 #### [facility] [address] [place], [address] BUN/CRE 18.3 RATIO Normal 10-20 [facility] Comment on above: Performed By: #### L 501.5200, L700.6800, L500.2500, L100.0100, L501.9520 #### [facility] [address] [place], [address] CA,Total 8.7 mg/dL Normal 8.5-10.1 [facility] Comment on above: Performed By: #### L 501.5200, L700.6800, L500.2500, L100.0100, L501.9520 #### [facility] [address] [place], [address] Chloride [Moles/Vol] 108 mmol/L High 98-107 [facility] Comment on above: Performed By: #### L 501.5200, L700.6800, L500.2500, L100.0100, L501.9520 #### [facility] [address] [place], [address] CO2 [Moles/Vol] 25.0 mmol/L Normal 21.0-32.0 [facility] Comment on above: Performed By: #### L 501.5200, L700.6800, L500.2500, L100.0100, L501.9520 #### [facility] [address] [place], [address] Creatinine [Mass/Vol] 0.77 mg/dL Normal 0.55-1.02 [facility] Comment on above: Result Comment: The validity of the calculated GFR GFRAA in patients over 70 years has not been determined. Clinical correlation is essential. Performed By: #### L 501.5200, L700.6800, L500.2500, L100.0100, L501.9520 #### [facility] [address] [place], [address] EST GFR - AA 122 mL/min Normal >60 [facility] Comment on above: Result Comment: Afri can Austrian GFR Calc Performed By: #### L 501.5200, L700.6800, L500.2500, L100.0100, L501.9520 #### [facility] [address] [place], [address] GAP 5 Normal 5-15 [facility] Comment on above: Performed By: #### L 501.5200, L700.6800, L500.2500, L100.0100, L501.9520 #### [facility] [address] [place], [address] GFR/1.73 sq M.predicted among non-blacks MDRD (S/P/Bld) [Vol rate/Area] 101 mL/min/{1.73_m2} Normal >60 [facility] Comment on above: Result Comment: Non- GFR Calc Performed By: #### L 501.5200, L700.6800, L500.2500, L100.0100, L501.9520 #### [facility] [address] [place], [address] Globulin (S) [Mass/Vol] 3.6 g/dL Normal 2.2-4.2 [facility] Comment on above: Performed By: #### L 501.5200, L700.6800, L500.2500, L100.0100, L501.9520 #### [facility] [address] [place], [address] Glucose [Mass/Vol] 97 mg/dL Normal 74-106 [facility] Comment on above: Performed By: #### L 501.5200, L700.6800, L500.2500, L100.0100, L501.9520 #### [facility] [address] [place], [address] Potassium [Moles/Vol] 4.0 mmol/L Normal 3.5-5.1 [facility] Comment on above: Performed By: #### L 501.5200, L700.6800, L500.2500, L100.0100, L501.9520 #### [facility] [address] [place], [address] Sodium [Moles/Vol] 138 mmol/L Normal 136-145 [facility] Comment on above: Performed By: #### L 501.5200, L700.6800, L500.2500, L100.0100, L501.9520 #### [facility] [address] [place], [address] T PROT 6.8 g/dL Normal 6.4-8.2 [facility] Comment on above: Performed By: #### L 501.5200, L700.6800, L500.2500, L100.0100, L501.9520 #### [facility] [address] [place], [address] Urea nitrogen [Mass/Vol] 14 mg/dL Normal 7-18 [facility] Comment on above: Performed By: #### L 501.5200, L700.6800, L500.2500, L100.0100, L501.9520 #### [facility] [address] [place], [address] Erythrocyte Sed Rateon 06-09 SED RATE 16 mm/hr Normal 0-30 [facility] Comment on above: Performed By: #### L 501.5200, L700.6800, L500.2500, L100.0100, L501.9520 #### [facility] [address] [place], [address] Rheumatoid Factoron 06-09-20 24 RHEUMATOID FAC < 10.0 Normal <15 [facility] Comment on above: Performed By: #### L 501.5200, L700.6800, L500.2500, L100.0100, L501.9520 #### [facility] [address] [place], [address] Thyroid Stim Hormone (TSH)on 06-09-2024 TSH 1.980 uIU/mL Normal 0.358-3.740 [facility] Comment on above: Performed By: #### L 501.5200, L700.6800, L500.2500, L100.0100, L501.9520 #### [facility] [address] [place], [address] C-REACTIVE PROTEINon 024 CRP 1.87 mg/dl High 0.00 - 0.90 [facility] Comment on above: Performed By: #### 2 12302 #### [facility],[address] [place] [address] 31956 CBC + DIFFon 05-03-2024 Baso # 0.02 x10EE3/UL Normal 0.00 - 0.10 [facility] Comment on above: Performed By: #### 2 96891 #### [facility],[address] [place] [address] 76264 Basophils/100 WBC (Bld) 0.2 % Normal 0.0 - 2.0 [facility] Comment on above: Performed By: #### 2 76946 #### [facility],[address] [place] [address] 50938 CBC + DIFF Normal [facility] Comment on above: Result Comment: CBC- COMPLETE BLOOD COUNT Performed By: #### 2 64596 #### [facility],[address] [place] [address] 92214 EO # 0.31 x10EE3/UL Normal 0.00 - 0.50 [facility] Comment on above: Performed By: #### 2 40894 #### [facility],[address] [place] [address] 98531 Eosinophils/100 WBC (Bld) 2.4 % Normal 0.0 - 7.0 [facility] Comment on above: Performed By: #### 2 92081 #### [facility],[address] [place], [place] [address] Erythrocyte distribution width (RBC) [Ratio] 14.4 % Normal 12.0 - 15.6 [facility] Comment on above: Performed By: #### 2 67752 #### [facility],[address] [place] [address] Hematocrit (Bld) [Volume fraction] 38.9 % Normal 34.0 - 46.0 [facility] Comment on above: Performed By: #### 2 14426 #### [facility],[address] [place] [address] Hemoglobin (Bld) [Mass/Vol] 13.1 g/dL Normal 12.0 - 16.0 [facility] Comment on above: Performed By: #### 2 19769 #### [facility],[address] [place] [address] Lymph # 3.46 x10EE3/UL High 0.80 - 2.80 [facility] Comment on above: Performed By: #### 2 45813 #### [facility],[address] [place], [place] [address] Lymphocytes/100 WBC (Bld) 27.4 % Normal 20.0 - 45.0 [facility] Comment on above: Performed By: #### 2 56487 #### [facility],[address] [place], [place] [address] MANUAL DIFF N/A Normal [facility] Comment on above: Performed By: #### 2 83203 #### [facility],[address] [place] [address] 54893 MCH (RBC) [Entitic mass] 28 pg Normal 27 - 33 [facility] Comment on above: Performed By: #### 2 22800 #### [facility],[address] [place] [address] 99398 MCHC 34 X10 3 Normal 32 - 36 [facility] Comment on above: Performed By: #### 2 66051 #### [facility],[address] [place] [address] 20389 MCV (RBC) [Entitic vol] 83 fL Normal 80 - 99 [facility] Comment on above: Performed By: #### 2 48511 #### [facility],[address] [place] [address] 89511 Mccook # 0.32 x10EE3/UL Normal 0.20 - 1.00 [facility] Comment on above: Performed By: #### 2 30030 #### [facility],[address] [place] [address] 76987 MONOS % 2.5 % Normal 0.0 - 10.0 [facility] Comment on above: Performed By: #### 2 38416 #### [facility],[address] [place], [place] [id number] Morphology Julian (Bld) [Interp] N/A Normal [facility] Comment on above: Performed By: #### 2 38374 #### [facility],[address] [place] [address] Neut # 8.53 x10EE3/UL High 1.50 - 7.10 [facility] Comment on above: Performed By: #### 2 03533 #### [facility],[address] [place] [address] 96316 Neutrophils/100 WBC (Bld) 67.5 % Normal 46.0 - 76.0 [facility] Comment on above: Performed By: #### 2 64710 #### [facility],[address] [place] [address] 48458 PLATELET 375 x10EE3/UL Normal 150 - 450 [facility] Comment on above: Performed By: #### 2 77992 #### [facility],[address] [place] [address] 40292 Platelet mean volume (Bld) [Entitic vol] 7.0 fL Normal 6.6 - 10.5 [facility] Comment on above: Result Comment: AUTO MATED DIFFERENTIAL Performed By: #### 2 72723 #### [facility],[address] [place] [address] 04101 RBC 4.69 x 10EE6/UL Normal 4.10 - 5.30 [facility] Comment on above: Performed By: #### 2 58743 #### [facility],[address] [place] [address] 66097 WBC 12.6 x 10EE3/UL High 4.5 - 10.8 [facility] Comment on above: Performed By: #### 2 58315 #### [facility],[address] [place] [address] 15691 CMP with eGFRon 05-03-2024 AGE 19 years Normal [facility] Comment on above: Performed By: #### 2 14176 ####[facility],[address] [place] [address] 22427 Albumin [Mass/Vol] 3.3 g/dL Low 3.4 - 5.0 [facility] Comment on above: Performed By: #### 2 40495 ####[facility],[address] [place] [address] 01943 Albumin/Globulin [Mass ratio] 0.8 {ratio} Low 0.9 - 1.6 [facility] Comment on above: Performed By: #### 2 59673 ####[facility],[address] [place] [address] 67181 ALK PHOS 114 U/L Normal 46 - 116 [facility] Comment on above: Performed By: #### 2 67105 ####[facility],[address] [place] [address] 07468 ALT [Catalytic activity/Vol] 17 U/L Normal 16 - 63 [facility] Comment on above: Performed By: #### 2 67706 ####[facility],[address] [place] [address] 53512 Anion gap [Moles/Vol] 13 mmol/L Normal 10 - 20 [facility] Comment on above: Performed By: #### 2 14516 ####[facility],[address] [place] [address] 21893 AST [Catalytic activity/Vol] 21 U/L Normal 13 - 39 [facility] Comment on above: Performed By: #### 2 55021 ####[facility],[address] [place] [address] 94332 B/C RATIO 12 ratio Normal 0 - 30 [facility] Comment on above: Performed By: #### 2 46687 ####[facility],[address] [place] [address] 70197 Bilirubin [Mass/Vol] 0.8 mg/dL Normal 0.2 - 1.0 [facility] Comment on above: Performed By: #### 2 53024 ####[facility],[address] [place] [address] 45318 Calcium [Mass/Vol] 8.5 mg/dL Normal 8.5 - 10.1 [facility] Comment on above: Performed By: #### 2 89633 ####[facility],[address] [place] [address] 38307 Chloride [Moles/Vol] 105 mmol/L Normal 98 - 107 [facility] Comment on above: Performed By: #### 2 74445 ####[facility],[address] [place] [address] 63264 CMP with eGFR Normal [facility] Comment on above: Result Comment: COMP REHENSIVE METABOLIC PANEL Performed By: #### 2 35084 ####[facility],[address] [place] [address] 49009 CO2 [Moles/Vol] 27.7 mmol/L Normal 21.0 - 32.0 [facility] Comment on above: Performed By: #### 2 87884 ####[facility],[address] [place] [address] 12337 Creatinine [Mass/Vol] 0.73 mg/dL Normal 0.55 - 1.02 [facility] Comment on above: Performed By: #### 2 24285 ####[facility],[address] [place] [address] 25984 GFR/1.73 sq M.predicted among non-blacks MDRD (S/P/Bld) [Vol rate/Area] mL/min/{1.73_m2} Normal 60 - 999 [facility] Comment on above: Performed By: #### 2 24941 ####[facility],[address] [place], [place] [address] Result Comment: ACCO RDING TO THE NATIONAL KIDNEY DISEASE EDUCATION PROGRAM(NKDE), A NORMAL eGFR IS A VALUE GREATER THAN OR EQUAL TO 60 ML/MIN/1.73 SQ METERS. CHRONIC KIDNEY DISEASE: <60mL/MIN/1.73 SQ METERS KIDNEY FAILURE: <15mL/MIN/1.73 SQ METERS THIS TEST SHOULD ONLY BE USED FOR PATIENTS 18 YEARS OF AGE AND OLDER. Globulin (S) [Mass/Vol] 4.0 g/dL High 1.5 - 3.8 [facility] Comment on above: Performed By: #### 2 09928 ####[facility],[address] [place] [address] 61829 Glucose [Mass/Vol] 95 mg/dL Normal 74 - 106 [facility] Comment on above: Performed By: #### 2 29305 ####[facility],[address] [place] [address] 35597 Potassium [Moles/Vol] 3.6 mmol/L Normal 3.5 - 5.1 [facility] Comment on above: Performed By: #### 2 53726 ####[facility],[address] [place] [address] 04739 Protein [Mass/Vol] 7.3 g/dL Normal 6.4 - 8.2 [facility] Comment on above: Performed By: #### 2 36210 ####[facility],[address] [place] [address] 88301 Sodium [Moles/Vol] 142 mmol/L Normal 136 - 145 [facility] Comment on above: Performed By: #### 2 08807 ####[address] [address] Urea nitrogen [Mass/Vol] 9 mg/dL Normal 7 - 18 [facility] Comment on above: Performed By: #### 2 50776 ####[facility],[address] [place] [address] 13307 CPKon 05-03-2024 CPK 133 U/L Normal 26 - 192 [facility] Comment on above: Performed By: #### 2 05075 #### [facility],[address] [place] [address] CERVICAL W/O CONTRASTon 1 07-03-2023 CT CERVICAL W/O CONTRAST [place] [address] Patient: ALINA MALIK Phone#: : 2005 Age: 19 Gender: F Pt. Type: ER Account: [id number] Location: [facility] Ordering: CARLOTA CHOW Exam Date: 05/03/2024/4:37 Family Phys: Charge Code: [id number] Physician: Kandiyohi Order #: [id number] Dose#: 15.5 mGy PROCEDURE: CT CERVICAL WITHOUT [...] Wren MD on 05/03/2024 at 17:40 Normal [facility] ED MED ADMINISTRATION DETAIL on 05-03-2024 ED MED ADMINISTRATION DETAIL Car Porter Medication Administration Record [address] [place] [address] [id number] 05/02/2024 Patient: ALINA MALIK Sex: Female : [...] IV flushed thoroughly post-medication administration. - 06:21 nAdrea Sanchez R.N. KetorOLAC 03:37 11 KetorOLAC (Toradol) IVP 15 mg given via [...] 03:37 Andrea Sanchez R.N. 1 of 2 Car Porter Medication Ordered Medication Administration Date/Time Dexamethasone 03:36 [...] Andrea Sanchez R.N. 2 of 2 Normal [facility] ED NURSES CLINICAL NOTEon ED NURSES CLINICAL NOTE Nurse Narrative Nurse Clinical [address] [address] [id number] 05/02/2024 Patient: ALINA MALIK Sex: Female : 2005 Age: 19y Disposition: Discharge to Home Disposition Decision Time: 05:57 05/03/2024 Departure Time: 06:11 05/03/2024 TRIAGE Arrived by private vehicle. Historian: patient. Triage time: 00:01 05/03/2024. Acuity: LEVEL 3. Chief Complaint: (Left Arm Pain). SEPSIS SCREEN: NEGATIVE. SIRS criteria negative. No possible sources of infection. -- 00:08 05/03/24 NATALIA Cunha R.N. 00:05/03/24. BP: 145/96 MAP: 112. HR: 83. RR: 14. O2 saturation: 99% Temperature: 98.2 F. Pain level now 12/31. -- 00:05/03/24 NATALIA Cunha R.N. Measurements: 00:06 05/03/24 Wt: 99.8 kg -- 00:06 05/03/24 NATALIA Cunha R.N. Medications: unable to obtain home medications -- 00:05/03/24 NATALIA Cunha R.N. Allergies: Wellbutrin -- 00:04 05/03/24 NATALIA Cunha R.N. 1 of 4 Nurse Narrative Problems: Asthma -- 00:05/03/24 NATALIA Cunha R.N. Depression -- 00:05/03/24 NATALIA Cunha R.N. Anxiety disorder -- 00:05/03/24 NATALIA Cunha R.N. ADDITIONAL SURGERIES: Cholecystectomy -- [...] completed. No risk factors identified. -- 00:05/03/24 NATALIA Cunha R.N. 00:05/03/24. SOCIAL HX: The patient has not traveled outside the [place] Infectious disease exposure: No infectious disease exposure. -- 00:05/03/24 NATALIA Cunha R.N. Interventions 00:05/03/24. Advanced care plan discussed with patient. Patient does not have advanced directive. -- 00:05/03/24 NATALIA Cunha R.N. PHYSICAL ASSESSMENT 03:23 05/03/24. Ambulatory to room. GENERAL / NEURO / PSYCH: Alert. Oriented X 4. Appears in no acute distress. ( LEFT ARM PAIN WITH SOME WEAKNESS X 2 MONTHS, PAIN FROM PALM OF HAND TO LEFT SHOULDER ON AND OFF 5/10.). 2 of 4 Nurse Narrative RESPIRATORY: Respirations [...] 99% Temperature: 98.2 F. Pain level now 710. -- 03:05/03/24 NATALIA Sanchez R.N. 03:05/03/24. The patient is resting quietly. ( PT SEEN BY DR MELO , NOW W/O FURTHER ORDERS.). RESPIRATORY: No respiratory distress. Breath sounds normal. CVS: Normal sinus rhythm noted. SKIN: Skin is warm. Skin color within normal limits. Two patient identifiers checked. Call light placed in reach. Side rails up. Bed placed in lowest position. Brakes of bed on. -- 03:05/03/24 NATALIA Sanchez R.N. 03:35 05/03/24. IV NS [...] understanding. -- 03:36 05/03/24 NATALIA Sanchez R.N. 03:05/03/24. Site #1 started via IV in the [...] Medication Wa (more content not included)... Normal [facility] ED ORDER SHEET (CPOE ONLY)on 05-03-2024 ED ORDER SHEET (CPOE ONLY) Order Sheet Order Sheet [address] [place] [address] [id number] 05/02/2024 Patient: ALINA MALIK Sex: Female : 2005 Age: 19y MEASUREMENTS: Wt: 99.8 kg ALLERGIES: Wellbutrin MEDICATION/IV/DRIP/FLUI D ORDERS Order Description Priority Entered Acknowledged Completed IV NS 0.9 %1000 mL at 999 03:18 05/03/2024 03:24 03:36 mL/hr (NOW x1) Carlota Chow D.O. 05/03/2024 05/03/2024 Andrea Burks R.N. R.N. KetorOLAC (Toradol) IVP15 mg 03:18 05/03/2024 03:24 03:37 (NOW x1) Carlota Chow D.O. 05/03/2024 05/03/2024 Andrea Burks R.N. R.NCristian Reason for ordering with alerts: Clinical consideration given --03:18 05/03/2024 Carlota Chow D.O. Dexamethasone (Dedcadron) 03:18 05/03/2024 03:24 03:37 IVP10 mg (NOW x1) Carlota Chow D.O. 05/03/2024 05/03/2024 Andrea Burks R.N. R.NCristian Reason for ordering with alerts: Clinical consideration [...] (05/03/2024 07:02 EST)] 2 of 2 Normal [facility] ED PHYSICIAN CLINICAL REPORT on 05-03-2024 ED PHYSICIAN CLINICAL REPORT Narrative Physician Clinical Narrative [address] [address] [id number] 05/02/2024 Patient: ALINA MALIK Sex: Female : [...] times. Recent medical care: Not recently seen/assessed. Narrative REVIEW OF SYSTEMS PSYCHIATRIC: No depression. [...] nursing notes have been reviewed. PHYSICAL EXAM of 10 Narrative Appearance: Alert. Oriented X3. [...] brachioradialis reflexes. +2/ 4 bilaterally. brisk. 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 LABS, X-RAYS, AND EKG [...] 10 Narr (more content not included)... Normal [facility] ED SUPER BILLon 05-03-2024 ED SUPER BILL [address] [address] [id number] 05/02/2024 Patient: ALINA MALIK Sex: Female : 2005 Age: 19y Item Facility Professional Category Description Code Code Quantity Fee Total Nurse/E/M EMERGENCY 367740 1 $0.00 $0.00 DEPARTMENT VISIT HIGH/URGENT SEVERITY (23417-73) Nurse/IV/IM/Infusions Hydration 899015 2 $0.00 $0.00 additional hour (83305) Nurse/IV/IM/Infusions IVP additional 999057 1 $0.00 $0.00 push (50621) Nurse/IV/IM/Infusions IVP initial 846437 1 $0.00 $0.00 (41537) Grand Total $0.00 Providers Carlota Chow D.O. Chief Complaint 1 of 2 Superbill UPPER EXTREMITY PAIN. Principal Diagnosis Chronic upper extremity pain involving the left forearm. Neuropathy. ICD-10 Codes G62.9: Polyneuropathy, unspecified M79.632: Pain in left forearm 2 of 2 Normal [facility] ED VISIT SUMMARYon ED VISIT SUMMARY Visit Overview Visit Overview [address] [address] [id number] 05/02/2024 Patient: ALINA MALIK Sex: Female : [...] 05/03/24 7 Pain 06:11 05/03/24 ETCO2 00:08 05/03/24 ETCO2 06:11 05/03/24 GCS 00:08 05/03/24 GCS 06:11 05/03/24 RTS 00:08 05/03/24 RTS 06:11 05/03/24 2 of 3 Visit Overview PROCEDURES NURSING INTERVENTIONS LABS / STUDIES LABS / STUDIES ORDERED CBC w Diff CMP CPK CRP CT C-Spine wo Cont HCG, Qual Serum CLINICAL IMPRESSION CHRONIC UPPER EXTREMITY PAIN INVOLVING THE LEFT FOREARM NEUROPATHY 3 of 3 Normal [facility] ED VITALS FLOW SHEETon 05-03 ED VITALS FLOW SHEET Vitals Vital Sign Flow Sheet [facility] [address] [place] [address] [id number] 05/02/2024 Patient: ALINA MALIK Sex: Female : [...] 98.2 F 7 1 of 1 Normal [facility] SERUM QUALon 05-03 EXTERNAL QC DONE? YES Normal [facility] Comment on above: Performed By: #### 2 49280 ####[facility],[address] [place] [address] INTERNAL QC PASS Normal [facility] Comment on above: Performed By: #### 2 72019 ####[facility],[address] [place] [address] SER Negative Normal NEGATIVE [facility] Comment on above: Performed By: #### 2 66665 ####[facility],[address] [place] [address] CNOVon 03-30-2024 CNOV Office Visit ([facility] ) ALINA MALIK ([id number]) [birth year] F Date Time Provider Department 03/30/24 5:15 PM BHAVANI CROSS [facility] During your visit today, we recorded the following information about you: Bhavani Cross PA 03/30/2024 5:10 PM Signed 19-year-old female presents for shakiness, lightheadedness starting today. 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 [...] Status:Closed by BHAVANI CROSS on 03/30/24 Normal [facility] Cheston [facility] Chest [facility] Imaging Services [address] [place] [address] [phone] [facility] Chest MR#: [id number] Acct: [id number] Name: ALINA MALIK Rep #: [id number] : 2005 F 19 From: Conrado Baires MD PCP: Nikki Olsen [facility], MAR[employer] TOWER OPERATOR-C Status: REG ER Study: Acute Abdomen Inc Chest Date of Exam: 03/08/24 Exam# [id number] Ordering [place]: [place] [id number] EXAM: XR ABDOMEN, 2 VIEWS AND XR [...] chest, abdomen or pelvis. Electronically Signed: Conrado Baires MD at 1:50 EDT , CC: [facility] [employer] OPERATOR-C Nikki Olsen; Remy Sawyer DO Interrelated Special Education Teacher: Signed Normal [facility] Basic Metabolic Profile (BMP )on 03-08-2024 BUN/CRE 12.9 RATIO Normal 10-20 [facility] Comment on above: Performed By: #### L 501.2450, L501.5200, L500.3400, L500.2500, L100.0100, L700.6800 #### [facility] [address] [place], [address] CA,Total 9.1 mg/dL Normal 8.5-10.1 [facility] Comment on above: Performed By: #### L 501.2450, L501.5200, L500.3400, L500.2500, L100.0100, L700.6800 #### [facility] [address] [place], [address] Chloride [Moles/Vol] 110 mmol/L High 98-107 [facility] Comment on above: Performed By: #### L 501.2450, L501.5200, L500.3400, L500.2500, L100.0100, L700.6800 #### [facility] [address] [place], [address] CO2 [Moles/Vol] 26.0 mmol/L Normal 21.0-32.0 [facility] Comment on above: Performed By: #### L 501.2450, L501.5200, L500.3400, L500.2500, L100.0100, L700.6800 #### [facility] [address] [place], [address] Creatinine [Mass/Vol] 0.77 mg/dL Normal 0.55-1.02 [facility] Comment on above: Result Comment: The validity of the calculated GFR GFRAA in patients over 70 years has not been determined. Clinical correlation is essential. Performed By: #### L 501.2450, L501.5200, L500.3400, L500.2500, L100.0100, L700.6800 #### [facility] [address] [place], [address] ECRCL 152.31 ml/min Normal [facility] Comment on above: Performed By: #### L 501.2450, L501.5200, L500.3400, L500.2500, L100.0100, L700.6800 #### [facility] [address] [place], [address] EST GFR - AA 121 mL/min Normal >60 [facility] Comment on above: Result Comment: Afri can Austrian GFR Calc Performed By: #### L 501.2450, L501.5200, L500.3400, L500.2500, L100.0100, L700.6800 #### [facility] [address] [place], [address] GAP 6 Normal 5-15 [facility] Comment on above: Performed By: #### L 501.2450, L501.5200, L500.3400, L500.2500, L100.0100, L700.6800 #### [facility] [address] [place], [address] GFR/1.73 sq M.predicted among non-blacks MDRD (S/P/Bld) [Vol rate/Area] 100 mL/min/{1.73_m2} Normal >60 [facility] Comment on above: Result Comment: Non- GFR Calc Performed By: #### L 501.2450, L501.5200, L500.3400, L500.2500, L100.0100, L700.6800 #### [facility] [address] [place], [address] Glucose [Mass/Vol] 118 mg/dL High 74-106 [facility] Comment on above: Result Comment: Fast ing Glucose result from 100 to 125 mg/dL suggests IMPAIRED HOMEOSTASIS per A.D.A. criteria. Performed By: #### L 501.2450, L501.5200, L500.3400, L500.2500, L100.0100, L700.6800 #### [facility] [address] [place], [address] Potassium [Moles/Vol] 3.8 mmol/L Normal 3.5-5.1 [facility] Comment on above: Performed By: #### L 501.2450, L501.5200, L500.3400, L500.2500, L100.0100, L700.6800 #### [facility] [address] [place], [address] Sodium [Moles/Vol] 142 mmol/L Normal 136-145 [facility] Comment on above: Performed By: #### L 501.2450, L501.5200, L500.3400, L500.2500, L100.0100, L700.6800 #### [facility] [address] [place], [address] Urea nitrogen [Mass/Vol] 10 mg/dL Normal 7-18 [facility] Comment on above: Performed By: #### L 501.2450, L501.5200, L500.3400, L500.2500, L100.0100, L700.6800 #### [facility] [address] [place], [address] CBC W/Diff, Automatedon 09-06 28-2023 Absolute Lymph 3.41 X10 3/uL Normal 0.83-4.51 [facility] Comment on above: Performed By: #### L 501.2450, L501.5200, L500.3400, L500.2500, L100.0100, L700.6800 #### [facility] [address] [place], [address] Absolute Neut 6.1 X10 3/uL Normal 2.0-7.7 [facility] Comment on above: Performed By: #### L 501.2450, L501.5200, L500.3400, L500.2500, L100.0100, L700.6800 #### [facility] [address] [place], [address] Basophils/100 WBC (Bld) 0.7 % Normal 0-1 [facility] Comment on above: Performed By: #### L 501.2450, L501.5200, L500.3400, L500.2500, L100.0100, L700.6800 #### [facility] [address] [place], [address] Eosinophils/100 WBC (Bld) 3.6 % Normal 0-5 [facility] Comment on above: Performed By: #### L 501.2450, L501.5200, L500.3400, L500.2500, L100.0100, L700.6800 #### [facility] [address] [place], [address] Erythrocyte distribution width (RBC) [Ratio] 13.9 % Normal 11.6-14.6 [facility] Comment on above: Performed By: #### L 501.2450, L501.5200, L500.3400, L500.2500, L100.0100, L700.6800 #### [facility] [address] [place], [address] Hematocrit (Bld) [Volume fraction] 37.9 % Normal 37-47 [facility] Comment on above: Performed By: #### L 501.2450, L501.5200, L500.3400, L500.2500, L100.0100, L700.6800 #### [facility] [address] [place], [address] Hemoglobin (Bld) [Mass/Vol] 12.3 g/dL Normal 12.0-15.0 [facility] Comment on above: Performed By: #### L 501.2450, L501.5200, L500.3400, L500.2500, L100.0100, L700.6800 #### [facility] [address] [place], [address] IG% 0.300 Normal 0.0-0.9 [facility] Comment on above: Result Comment: IG% - Immature Granulocytes (promyelocytes, myelocytes and metamyelocytes) > 1% indicates that a LEFT SHIFT is Present. Performed By: #### L 501.2450, L501.5200, L500.3400, L500.2500, L100.0100, L700.6800 #### [facility] [address] [place], [address] Lymphocytes/100 WBC (Bld) 32.9 % Normal 19-41 [facility] Comment on above: Performed By: #### L 501.2450, L501.5200, L500.3400, L500.2500, L100.0100, L700.6800 #### [facility] [address] [place], [address] MCH (RBC) [Entitic mass] 27.1 pg Normal 27.0-32.0 [facility] Comment on above: Performed By: #### L 501.2450, L501.5200, L500.3400, L500.2500, L100.0100, L700.6800 #### [facility] [address] [place], [address] MCHC (RBC) [Mass/Vol] 32.5 g/dL Normal 32-36 [facility] Comment on above: Performed By: #### L 501.2450, L501.5200, L500.3400, L500.2500, L100.0100, L700.6800 #### [facility] [address] [place], [address] MCV (RBC) [Entitic vol] 83.5 fL Normal 81-99 [facility] Comment on above: Performed By: #### L 501.2450, L501.5200, L500.3400, L500.2500, L100.0100, L700.6800 #### [facility] [address] [place], [address] Monocytes/100 WBC (Bld) 3.7 % Normal 0-10 [facility] Comment on above: Performed By: #### L 501.2450, L501.5200, L500.3400, L500.2500, L100.0100, L700.6800 #### [facility] [address] [place], [address] Neutrophils/100 WBC (Bld) 58.8 % Normal 47-70 [facility] Comment on above: Performed By: #### L 501.2450, L501.5200, L500.3400, L500.2500, L100.0100, L700.6800 #### [facility] [address] [place], [address] Nucleated RBC (Bld) [#/Vol] 0 10*3/uL Normal 0-5 [facility] Comment on above: Performed By: #### L 501.2450, L501.5200, L500.3400, L500.2500, L100.0100, L700.6800 #### [facility] [address] [place], [address] Platelet mean volume (Bld) [Entitic vol] 8.8 fL Normal 6.2-12.0 [facility] Comment on above: Performed By: #### L 501.2450, L501.5200, L500.3400, L500.2500, L100.0100, L700.6800 #### [facility] [address] [place], [address] Platelets (Bld) [#/Vol] 350 10*3/uL Normal 150-450 [facility] Comment on above: Performed By: #### L 501.2450, L501.5200, L500.3400, L500.2500, L100.0100, L700.6800 #### [facility] [address] [place], [address] RBC (Bld) [#/Vol] 4.54 10*6/uL Normal 4.2-5.4 [facility] Comment on above: Performed By: #### L 501.2450, L501.5200, L500.3400, L500.2500, L100.0100, L700.6800 #### [facility] [address] [place], [address] RDW SD 42.2 fl Normal 35.1-43.9 [facility] Comment on above: Performed By: #### L 501.2450, L501.5200, L500.3400, L500.2500, L100.0100, L700.6800 #### [facility] [address] [place], [place], [id number] (132) WBC (Bld) [#/Vol] 10.4 10*3/uL Normal 4.4-11.0 [facility] Comment on above: Performed By: #### L 501.2450, L501.5200, L500.3400, L500.2500, L100.0100, L700.6800 #### [facility] [address] [place], [place], [address] Emergency Department Summary on 03-08-2024 Emergency Department Summary [facility] Medical Records Department [address] [facility] [place] [address] Emergency Department Summary 03/08/24 MR#: [id number] Acct: [id number] Name: ALINA MALIK Rep #: [id number] : 2005 19 From: Remy Sawyer DO PCP: JACQUELIN Flores, MARINE TOWER OPERATOR-C Status:REG ER Location: ED HPI History of [...] her gallbladder removed approximately [address] [facility] Medical History EP (ectopic ) Palpitations [...] tympany Auscultat (more content not included)... Normal [facility] Lipaseon 03-08-2024 Lipase [Catalytic activity/Vol] 22 U/L Normal 13-75 [facility] Comment on above: Result Comment: Lorna lazar note: LIPASE revised reference range effective 22. New Lipase methodology. Expected to produce lower values than the previous assay method. NEW Reference Range: 13 - 75 U/L Performed By: #### L 501.2450, L501.5200, L500.3400, L500.2500, L100.0100, L700.6800 #### [facility] [address] [place], [address] Liver Profileon 03-08-2024 Albumin [Mass/Vol] 3.5 g/dL Normal 3.2-5.0 [facility] Comment on above: Performed By: #### L 501.2450, L501.5200, L500.3400, L500.2500, L100.0100, L700.6800 #### [facility] [address] [place], [address] ALK P 118 U/L High 45-117 [facility] Comment on above: Performed By: #### L 501.2450, L501.5200, L500.3400, L500.2500, L100.0100, L700.6800 #### [facility] [address] [place], [address] ALT [Catalytic activity/Vol] 17 U/L Normal 13-56 [facility] Comment on above: Performed By: #### L 501.2450, L501.5200, L500.3400, L500.2500, L100.0100, L700.6800 #### [facility] [address] [place], [address] AST [Catalytic activity/Vol] 19 U/L Normal 15-37 [facility] Comment on above: Performed By: #### L 501.2450, L501.5200, L500.3400, L500.2500, L100.0100, L700.6800 #### [facility] [address] [place], [address] Bilirubin [Mass/Vol] 0.70 mg/dL Normal 0.20-1.00 [facility] Comment on above: Result Comment: For patients on eltrombopag therapy, use of Dimension [place] TBIL is not recommended. Performed By: #### L 501.2450, L501.5200, L500.3400, L500.2500, L100.0100, L700.6800 #### [facility] [address] [place], [address] Bilirubin.direct [Mass/Vol] 0.18 mg/dL Normal 0.00-0.30 [facility] Comment on above: Performed By: #### L 501.2450, L501.5200, L500.3400, L500.2500, L100.0100, L700.6800 #### [facility] [address] [place], [address] Globulin (S) [Mass/Vol] 3.7 g/dL Normal 2.2-4.2 [facility] Comment on above: Performed By: #### L 501.2450, L501.5200, L500.3400, L500.2500, L100.0100, L700.6800 #### [facility] [address] [place], [address] T PROT 7.2 g/dL Normal 6.4-8.2 [facility] Comment on above: Performed By: #### L 501.2450, L501.5200, L500.3400, L500.2500, L100.0100, L700.6800 #### [facility] [address] [place], [address] Magnesiumon 03-08-2024 Magnesium [Mass/Vol] 2.0 mg/dL Normal 1.6-2.6 [facility] Comment on above: Performed By: #### L 501.2450, L501.5200, L500.3400, L500.2500, L100.0100, L700.6800 #### [facility] [address] [place], [address] ,Serum,hCG Quali.on 03-08-2024 HCG, SERUM QUAL Negative Normal [facility] Comment on above: Performed By: #### L 501.2450, L501.5200, L500.3400, L500.2500, L100.0100, L700.6800 #### [facility] [address] [place], [address] Echo Completeon 02-19-2024 Echo Complete [facility] [address] [place] [address] Echo Complete 02/19/24 1320 MR#: [id number] Acct: [id number] Name: ALINA MALIK Rep #: [id number] : 2005 19 From: Shan Brody MD Attending Dr: JACQUELIN Flores, MARINE TOWER OPERATOR-C Status : REG CLI Ordering Dr: Nikki Olsen MARINE TOWER OPERATOR-C Date: 02/18 Location: CVS Sex: F C [...] Physician: Nikki Olsen Performed By: Cici Ji, ROGELIOCS, RVT 08/1428 Date Shan Brody MD CC: [facility] MARINE TOWER OPERATORVick Olsen Date Dictated: 02/19/24 1320 Date Transcribed: 02/19/241428 Interrelated Special Education Teacher: Signed Normal [facility] CBC W Auto Differential pane l (Bld)on 02-18-2024 Basophils (Bld) [#/Vol] 0.1 10*3/uL 0.0 - 0.2 10*3/uL [facility] Basophils/100 WBC (Bld) 0.5 % 0.0 [...] [Mass/Vol] 13.2 g/dL 11.7 - 16.0 g/dL [facility] Immature granulocytes (Bld) [#/Vol] 0.1 10*3/uL High NINF - 0.1 10*3/uL [facility] Immature granulocytes/100 WBC (Bld) 0.4 % 0.0 - 2.0 % [facility] Interpretation and review of laboratory results Abnormal [facility] Lymphocytes (Bld) [#/Vol] 4.9 10*3/uL High 1.0 - 4.3 10*3/uL [facility] Lymphocytes/100 WBC (Bld) 32.1 % 15.0 - 45.0 % [facility] MCH (RBC) [Entitic mass] 27.7 pg 26.0 - 34.0 pg [facility] MCHC (RBC) [Mass/Vol] 33.9 % 30.5 - 36.0 % [facility] MCV (RBC) [Entitic vol] 81.6 fL 77.0 - 99.0 fL [facility] Monocytes (Bld) [#/Vol] 0.5 10*3/uL 0.0 - 0.9 10*3/uL [facility] Monocytes/100 WBC (Bld) 3.4 % Low 5.0 - 13.0 % [facility] Neutrophils (Bld) [#/Vol] 9.2 10*3/uL High 1.8 - 7.5 10*3/uL [facility] Neutrophils/100 WBC (Bld) 60.8 % 38.0 - 82.0 % [facility] Nucleated RBC/100 WBC (Bld) [Ratio] 0.0 % [facility] Platelet mean volume (Bld) [Entitic vol] 9.1 fL 9.0 - 12.7 fL [facility] Comment on above: MPV is a calculated measurement using platelet volume ratio Platelets (Bld) [#/Vol] 341 10*3/uL 140 - 440 10*3/uL [facility] RBC (Bld) [#/Vol] 4.77 10*6/uL 3.80 - 5.2 0 10*6/uL [facility] WBC (Bld) [#/Vol] 15.1 10*3/uL High 3.6 - 10.7 10*3/uL [facility] CBC WITH AUTO DIFFERENTIALon 02-18-2024 Basophils (Bld) [#/Vol] 0.1 10*3/uL Normal 0.0-0.2 [facility] Comment on above: Performed By: #### L [id number] #### Appliance Adjuster: GENEVIEVE SHEPHERD ([id number]) [facility] [employer] (RLAB) [address] [place] [address] Basophils/100 WBC (Bld) 0.5 % Normal 0.0-2.0 [facility] Comment on above: Performed By: #### L [id number] #### Appliance Adjuster: GENEVIEVE SHEPHERD ([id number]) [facility] [employer] (SWRLAB) [address] [place] [address] Eosinophils (Bld) [#/Vol] 0.4 10*3/uL Normal 0.0-0.5 [facility] Comment on above: Performed By: #### L [id number] #### Appliance Adjuster: GENEVIEVE SHEPHERD ([id number]) [facility] [employer] (SWRLAB) [address] [place] [address] [place] Eosinophils/100 WBC (Bld) 2.8 % Normal 0.0-6.0 [facility] Comment on above: Performed By: #### L [id number] #### Appliance Adjuster: GENEVIEVE SHEPHERD ([id number]) [facility] [employer] (SWRLAB) [address] [place] [address] Erythrocyte distribution width (RBC) [Ratio] 14.5 % Normal 11.5-15.0 [facility] Comment on above: Performed By: #### L [id number] #### Appliance Adjuster: GENEVIEVE SHEPHERD ([id number]) [facility] [employer] (SWRLAB) [address] [place] [address] Hematocrit (Bld) [Volume fraction] 38.9 % Normal 35.0-47.0 [facility] Comment on above: Performed By: #### L [id number] #### Appliance Adjuster: GENEVIEVE SHEPHERD ([id number]) [facility] [employer] (SWRLAB) [address] [place] [address] Hemoglobin (Bld) [Mass/Vol] 13.2 g/dL Normal 11.7-16.0 [facility] Comment on above: Performed By: #### L [id number] #### Appliance Adjuster: GENEVIEVE SHEPHERD ([id number]) [facility] [employer] (SWRL[employer]) [address] [place] [address] [place] IMMATURE GRANS % 0.4 % Normal 0.0-2.0 [facility] Comment on above: Performed By: #### L [id number] #### Appliance Adjuster: GENEVIEVE SHEPHERD ([id number]) [facility] [employer] (SWRLAB) [address] [place] [address] IMMATURE GRANS ABSOLUTE 0.1 10*3/uL High <0.1 [facility] Comment on above: Performed By: #### L [id number] #### Appliance Adjuster: GENEVIEVE SHEPHERD ([id number]) [facility] [employer] (SWRLAB) [address] [place] [address] Lymphocytes (Bld) [#/Vol] 4.9 10*3/uL High 1.0-4.3 [facility] Comment on above: Performed By: #### L [id number] #### Appliance Adjuster: GENEVIEVE SHEPHERD ([id number]) [facility] [employer] (SWRLAB) [address] [place] [address] [place] Lymphocytes/100 WBC (Bld) 32.1 % Normal 15.0-45.0 [facility] Comment on above: Performed By: #### L [id number] #### Appliance Adjuster: GENEVIEVE SHEPHERD ([id number]) [facility] [employer] (SWRLAB) [address] [place] [address] MCH (RBC) [Entitic mass] 27.7 pg Normal 26.0-34.0 [facility] Comment on above: Performed By: #### L [id number] #### Appliance Adjuster: GENEVIEVE SHEPHERD ([id number]) [facility] [employer] (SWRLAB) [address] [place] [address] MCHC 33.9 % Normal 30.5-36.0 [facility] Comment on above: Performed By: #### L [id number] #### Appliance Adjuster: GENEVIEVE SHEPHERD ([id number]) [facility] [employer] (SWRLAB) [address] [place] [address] MCV (RBC) [Entitic vol] 81.6 fL Normal 77.0-99.0 [facility] Comment on above: Performed By: #### L [id number] #### Appliance Adjuster: GENEVIEVE SHEPHERD ([id number]) [facility] [employer] (SWRLAB) [address] [place] [address] Monocytes (Bld) [#/Vol] 0.5 10*3/uL Normal 0.0-0.9 [facility] Comment on above: Performed By: #### L [id number] #### Appliance Adjuster: GENEVIEVE SHEPHERD ([id number]) [facility] [employer] (SWRLAB) [address] [place] [address] [place] Monocytes/100 WBC (Bld) 3.4 % Low 5.0-13.0 [facility] Comment on above: Performed By: #### L [id number] #### Appliance Adjuster: GENEVIEVE SHEPHERD ([id number]) [facility] [employer] (SWRLAB) [address] [place] [address] [place] NEUTROPHILS ABSOLUTE 9.2 10*3/uL High 1.8-7.5 [facility] Comment on above: Performed By: #### L [id number] #### Appliance Adjuster: GENEVIEVE SHEPHERD ([id number]) [facility] [employer] (SWRLAB) [address] [place] [address] [place] Neutrophils/100 WBC (Bld) 60.8 % Normal 38.0-82.0 [facility] Comment on above: Performed By: #### L [id number] #### Appliance Adjuster: GENEVIEVE SHEPHERD ([id number]) [facility] [employer] (SWRLAB) [address] [place] [address] [place] NRBC 0.0 /100 WBCs Normal 0.0-2.0 [facility] Comment on above: Performed By: #### L [id number] #### Appliance Adjuster: GENEVIEVE SHEPHERD ([id number]) [facility] (SWRLAB) [address] [place] [address] Platelet mean volume (Bld) [Entitic vol] 9.1 fL Normal 9.0-12.7 [facility] Comment on above: Result Comment: MPV is a calculated measurement using platelet volume ratio Performed By: #### L [id number] #### Appliance Adjuster: GENEVIEVE SHEPHERD ([id number]) [facility] [employer] (SWRLAB) [address] Platelets (Bld) [#/Vol] 341 10*3/uL Normal 140-440 [facility] Comment on above: Performed By: #### L [id number] #### Appliance Adjuster: GENEVIEVE SHEPHERD ([id number]) [facility] [employer] (SWRLAB) [address] [place] [address] RBC (Bld) [#/Vol] 4.77 10*6/uL Normal 3.80-5.20 [facility] Comment on above: Performed By: #### L [id number] #### Appliance Adjuster: GENEVIEVE SHEPHERD ([id number]) [facility] [employer] (SWRLAB) [address] [place] [address] WBC (Bld) [#/Vol] 15.1 10*3/uL High 3.6-10.7 [facility] Comment on above: Performed By: #### L [id number] #### Appliance Adjuster: GENEVIEVE SHEPHERD ([id number]) [facility] [employer] (SWRLAB) [address] [place] [address] COMPLETE URINALYSISon 2023 BILIRUBIN, TOTAL PRESENCE IN URINE Negative Normal Negative [facility] Comment on above: Performed By: #### L [id number] #### Appliance Adjuster: GENEVIEVE SHEPHERD ([id number]) [facility] (SWRLAB) [address] [place] [address] Clarity (U) Clear Normal Clear [facility] Comment on above: Performed By: #### L [id number] #### Appliance Adjuster: GENEVIEVE SHEPHERD ([id number]) [facility] [employer] (SWRLAB) [address] [place] [address] Color (U) Light Yellow Normal Lt. Yellow [facility] Comment on above: Performed By: #### L [id number] #### Appliance Adjuster: GENEVIEVE SHEPHERD ([id number]) [facility] [employer] (SWRLAB) [address] [place] [address] [place] GLUCOSE (MG/DL) IN URINE Normal Normal Normal (<70) [facility] Comment on above: Performed By: #### L [id number] #### Appliance Adjuster: GENEVIEVE SHEPHERD ([id number]) [facility] (SWRLAB) [address] [place] [address] HEMOGLOBIN PRESENCE IN URINE Negative Normal Negative [facility] Comment on above: Performed By: #### L [id number] #### Appliance Adjuster: GENEVIEVE SHEPHERD ([id number]) [facility] (SWRLAB) [address] [place] [address] Ketones Ql (U) Negative Normal Negative [facility] Comment on above: Performed By: #### L [id number] #### Appliance Adjuster: GENEVIEVE SHEPHERD ([id number]) [facility] (SWRLAB) [address] [place] [address] LEUKOCYTE ESTERASE PRESENCE IN URINE BY TEST STRIP Negative Normal Negative [facility] Comment on above: Performed By: #### L [id number] #### Appliance Adjuster: GENEVIEVE SHEPHERD ([id number]) [facility] (SWRLAB) [address] [place] [address] NITRITE PRESENCE IN URINE Negative Normal Negative [facility] Comment on above: Performed By: #### L [id number] #### Appliance Adjuster: GENEVIEVE SHEPHERD ([id number]) [facility] (SWRLAB) [address] [place] [address] pH (U) 7.0 [pH] Normal 5.0-8.0 [facility] Comment on above: Performed By: #### L [id number] #### Appliance Adjuster: GENEVIEVE SHEPHERD ([id number]) [facility] (SWRLAB) [address] [place] [address] Protein (U) [Mass/Vol] Negative Normal Negative [facility] Comment on above: Performed By: #### L [id number] #### Appliance Adjuster: GENEVIEVE SHEPHERD ([id number]) [facility] (SWRLAB) [address] [place] [address] Specific gravity (U) [Rel density] 1.022 Normal 1.005-1.030 [facility] Comment on above: Performed By: #### L [id number] #### Appliance Adjuster: GENEVIEVE SHEPHERD ([id number]) [facility] (SWRLAB) [address] [place] [address] UROBILINOGEN (MG/DL) IN URINE 2 mg/dL Abnormal Normal (0-1) [facility] Comment on above: Performed By: #### L [id number] #### Appliance Adjuster: GENEVIEVE SHEPHERD ([id number]) [facility] (SWRL[employer]) [address] [place] [address] COMPREHENSIVE METABOLIC PANE Cristian 02-18-2024 Albumin [Mass/Vol] 4.4 g/dL Normal 3.5-5.0 [facility] Comment on above: Performed By: #### L AB17 #### Appliance Adjuster: GENEVIEVE SHEPHERD ([id number]) [facility] (SWRL[employer]) [address] [place] [address] ALP [Catalytic activity/Vol] 115 U/L Normal 38-126 [facility] Comment on above: Performed By: #### L [id number] #### Appliance Adjuster: GENEVIEVE SHEPHERD ([id number]) [facility] (SWRLAB) [address] [place] [address] ALT [Catalytic activity/Vol] 16 U/L Normal 0-34 [facility] Comment on above: Performed By: #### L [id number] #### Appliance Adjuster: GENEVIEVE SHEPHERD ([id number]) ST. [facility] FAR[facility] RITTMAN (SWRLAB) [address] [place] [address] Anion gap [Moles/Vol] 8 mmol/L Normal 3-13 [facility] Comment on above: Performed By: #### L AB17 #### Appliance Adjuster: GENEVIEVE SHEPHERD ([id number]) [facility]IT[facility]AN (SWRLAB) [address] [place] [address] AST [Catalytic activity/Vol] 26 U/L Normal 15-46 [facility] Comment on above: Performed By: #### L AB17 #### Appliance Adjuster: GENEVIEVE SHEPHERD ([id number]) [facility] RITTMAN (SWRLAB) [address] Bilirubin [Mass/Vol] 0.6 mg/dL Normal 0.2-1.3 [facility] Comment on above: Performed By: #### L AB17 #### Appliance Adjuster: GENEVIEVE SHEPHERD ([id number]) [facility] (SWRLAB) [address] [place] [address] Calcium [Mass/Vol] 9.3 mg/dL Normal 8.4-10.4 [facility] Comment on above: Performed By: #### L AB17 #### Appliance Adjuster: GENEVIEVE SHEPHERD ([id number]) [facility] (SWRLAB) [address] [place] [address] [place] Chloride [Moles/Vol] 105 mmol/L Normal 98-107 [facility] Comment on above: Performed By: #### L AB17 #### Appliance Adjuster: GENEVIEVE SHEPHERD ([id number]) [facility] (SWRLAB) [address] [place] [address] [place] CO2 [Moles/Vol] 23 mmol/L Normal 22-30 [facility] Comment on above: Performed By: #### L AB17 #### Appliance Adjuster: GENEVIEVE SHEPHERD ([phone]) [facility]IT[facility] (SWRLAB) [address] [place] [address] [place] Creatinine [Mass/Vol] 0.56 mg/dL Normal 0.52-1.04 [facility] Comment on above: Performed By: #### L AB17 #### Appliance Adjuster: GENEVIEVE SHEPHERD ([id number]) [facility] (SWRLAB) [address] [place] [address] [place] GLOMERULAR FILTRATION RATE ML/MIN/1.73 SQ M.PREDICTED >90.0 Normal >60.0 [facility] Comment on above: Result Comment: Calc ulation based on the Chronic Kidney Disease Epidemiology Collaboration (CKD-EPI) equation refit without adjustment for race Performed By: #### L AB17 #### Appliance Adjuster: GENEVIEVE SHEPHERD ([id number]) [facility] (SWRLAB) [address] [place] [address] [place] Glucose [Mass/Vol] 116 mg/dL High 70-100 [facility] Comment on above: Performed By: #### L AB17 #### Appliance Adjuster: GENEVIEVE SHEPHERD ([id number]) [facility] (SWRLAB) [address] [place] [address] [place] Potassium [Moles/Vol] 3.6 mmol/L Normal 3.5-5.1 [facility] Comment on above: Performed By: #### L AB17 #### Appliance Adjuster: GENEVIEVE SHEPHERD ([id number]) [facility] (SWRLAB) [address] [place] [address] [place] Protein [Mass/Vol] 7.6 g/dL Normal 6.3-8.2 [facility] Comment on above: Performed By: #### L AB17 #### Appliance Adjuster: GENEVIEVE SHEPHERD ([id number]) [facility]ITTM[facility] (SWRLAB) [address] [place] [address] [place] Sodium [Moles/Vol] 137 mmol/L Normal 135-145 [facility] Comment on above: Performed By: #### L AB17 #### Appliance Adjuster: GENEVIEVE SHEPHERD ([id number]) [facility]ITTM[facility] (SWRLAB) [address] [place] [address] [place] Urea nitrogen [Mass/Vol] 13 mg/dL Normal 7-17 [facility] Comment on above: Performed By: #### L AB17 #### Appliance Adjuster: GENEVIEVE SHEPHERD ([id number]) [facility] [address] [place] [address] CT ABDOMEN PELVIS W CONTRAST on 02-18-2024 [...] Electronically Signed Date/Time: 02/18/2024 10:48 PM EDT Normal [facility] CT Abdomen and Pelvis W cont rast [place] 02-18-2024 1. Constipation. Report Dictated on Electronically Signed By: Andrew Ott MD Electronically Signed Date/Time: 02/18/2024 10:48 PM EDT [facility] Patient Name: ALINA MALIK : 2005 Exam [...] calculus seen on either side. Constipation noted. [facility] [employer] [facility] Andrew Ott MD - 02/18/2024 Patient Name: ALINA MALIK : 2005 Exam [...] Electronically Signed Date/Time: 02/18/2024 10:48 PM EDT [facility] Radiology Study observation (narrative) [facility] CT Abdomen and Pelvis W cont rast IVOrdered By: Andrew Ott on 02-18-2024 [facility] Work Phone: Comprehensive metabolic 1998 panelon 02-18-2024 Albumin [Mass/Vol] 4.4 g/dL 3.5 - 5.0 g/dL [facility] ALP [Catalytic activity/Vol] 115 U/L 38 - 126 U/L [facility] ALT [Catalytic activity/Vol] 16 U/L 0 - 34 U/L [facility] Anion gap [Moles/Vol] 8 mmol/L 3 - 13 mmol/L [facility] AST [Catalytic activity/Vol] 26 U/L 15 - 46 U/L [facility] Bilirubin [Mass/Vol] 0.6 mg/dL 0.2 - 1 .3 mg/dL [facility] Calcium [Mass/Vol] 9.3 mg/dL 8.4 - 10. 4 mg/dL [facility] Chloride [Moles/Vol] 105 mmol/L 98 - 10 7 mmol/L [facility] CO2 [Moles/Vol] 23 mmol/L 22 - 30 mmol/L [facility] Creatinine [Mass/Vol] 0.56 mg/dL 0.52 - 1.04 mg/dL [facility] GFR/1.73 sq M.predicted (S/P/Bld) [Vol rate/Area] - PINF [facility] Comment on above: Calculation based on the Chronic Kidney Disease Epidemiology Collaboration (CKD-EPI) equation refit without adjustment for race Glucose [Mass/Vol] 116 mg/dL High 70 - 100 mg/dL [facility] Interpretation and review of laboratory results Abnormal [facility] Potassium [Moles/Vol] 3.6 mmol/L 3.5 - 5.1 mmol/L [facility] Protein [Mass/Vol] 7.6 g/dL 6.3 - 8.2 g/dL [facility] Sodium [Moles/Vol] 137 mmol/L 135 - 145 mmol/L [facility] Urea nitrogen [Mass/Vol] 13 mg/dL 7 - 17 mg/dL [facility] ED Nursing Noteon 02-18-2024 ED Nursing Note Pt given discharge instructions and verbalized understanding. Pt is alert and oriented X4. IV removed intact. [facility] No concerns at this time. Candelaria Gerard RN 02/18/24 2307 Normal [facility] ED Nursing Note Dr. Joiner at pt bedside. Candelaria Gerard RN 02/18/24 0230 [facility] ED Provider Noteon ED Provider Note EMERGENCY DEPARTMENT ENCOUNTER Pt Name: Alina Malik Birthdate 2005 Date of evaluation: 02/18/2024 ED Provider: Rigo Joiner MD CHIEF COMPLAINT Chief Complaint Patient presents with Abdominal Pain Pt states she was seen yesterday for same at [facility] and was told she had a uti and discharged. Pt states today the pain has worsened in her RLQ around to her back 12/01 & sharp/cramping in nature. HISTORY OF PRESENT [...] Single Social Determinants of Health Received from [employer]urities Received from [employer] Received from [facility] Interpersonal Safety Received from [facility] Housing/Utilities SCREENINGS PHYSICAL EXAM ED Triage Vitals [02/18/24 2107] Temp Heart Rate Resp BP 36.8 ?C [...] Urine Negativ (more content not included)... Normal [facility] HCG QUALITATIVE URINEon 01-23 Beta HCG ( test) Ql (U) Negative Normal Negative [facility] Comment on above: Result Comment: Lorna lazar note: Very dilute urine specimens, as indicated by a low specific gravity, may not contain labor relations representative levels of hCG. If is still suspected, a first morning urine specimen should be collected 48 hours later and tested. ORDER COMMENTS: is the most common reason for HCG in urine, although choriocarcinoma, hydatidiform mole, and certain nontrophoblastic malignancies also result in detectable urinary HCG levels. Sensitivity = 20mIU/mL. Performed By: #### L [id number] #### Appliance Adjuster: GENEVIEVE SHEPHERD ([phone]) [facility] Laboratory - Chemistry and C hemistry - challengeOrdered By: Brandy Jerome on 02-18-2024 Beta HCG ( test) Ql Negative Negative [facility] Comment on above: Please note: Very di lute urine specimens, as indicated by a low specific gravity, may not contain labor relations representative levels of hCG. If is still suspected, a first morning urine specimen should be collected 48 hours later and tested. Beta HCG ( test) Ql (U) is the most common reason for HCG in urine, although choriocarcinoma, hydatidiform mole, and certain nontrophoblastic malignancies also result in detectable urinary HCG levels. Sensitivity = 20mIU/mL. [facility] No Panel InformationOrdered By: Brandy Jerome on 02-18-2024 [facility] Urinalysis complete panel (U )on 02-18-2024 Bilirubin Ql (U) Negative Negative mg/dL [facility] Clarity (U) Clear Clear [facility] Color (U) Light Yellow Lt. Yellow [facility] Glucose Ql (U) Normal Normal (<70) mg/dL [facility] Hemoglobin Ql (U) Negative Negative mg/dL [facility] Interpretation and review of laboratory results Abnormal [facility] Ketones (U) [Mass/Vol] Negative Negative mg/dL [facility] Leukocyte esterase Test strip Ql (U) Negative Negative Giuliana/uL [facility] Nitrite Ql (U) Negative Negative [facility] th pH (U) 7.0 [pH] 5.0 - 8.0 pH [facility] Protein (U) [Mass/Vol] Negative Negative mg/dL [facility] Specific gravity (U) [Rel density] 1.022 1.005 - 1.030 [facility] Urobilinogen (U) [Mass/Vol] 2 mg/dL Abnormal Normal (0-1) [facility] Bacteria Ur Culton 4 Bacteria [...] technique or straight catheterization for???urine???collectio n. Normal [facility] Comment on above: Performed By: #### 6 30-4 #### [facility] CLIA [id number] [address] [place] [address] OF HARJIT CNOVon 02-17-2024 CNOV Office Visit (UCWSTR ) ALINA MALIK ([id number]) 1 F Date Time Provider Department 02/17/24 7:30 AM [facility] During your visit today, we recorded the following information about you: Temperature Pulse Respiration Blood pressure 98.6 degrees 104/minute 16/minute 128/82 Weight 130.3 kg Skinny Moore APRN.CNP 02/17/2024 9:03 AM Signed Subjective HPI HPI [...] treat per c/s, f/u with pcp or loin trimmer if negative. - Patient education for prevention given - UA DIP, URINE (POC) - URINE CULTURE Skinny Moore APRN.SLURRY CONTROL TENDER Allergies As of Date: 02/17/2024 Noted Allergy Reaction WELLBUTRIN (BUPROPION) 06/14/2022 2 - Rash Date Reviewed: 02/17/2024 Reviewed by: Sue Ryder MA - Fully Assessed Reason for Visit: Urinary Frequency [1086] Cmt: urgency x couple weeks Primary Visit Diagnosis:Urinary frequency [R35.0] Order(s):UA DIP, URINE (POC) [3934937] Order #: [id number]. #:[id number] URINE CULTURE [SQURCUL] Order #: [id number]. #:[id number] Prescriptions as of 02/17/2024 - topiramate (TOPAMAX) [...] Status:Closed by [facility] on 02/17/24 Normal [facility] LABORATORYOrdered By: Chantale Malik on 02-17-2024 Appearance [...] Negative Normal [facility] [place] Comment on above: Performed By: #### U A, PREGU #### [address] [address] test (u) int Not detected Invalid Interpretation Code [facility] [place] Comment on above: Performed By: #### U A, PREGU #### [address] [address] UAon 02-17-2024 Color (U) Yellow Normal [facility] [place] Comment on above: Performed By: #### U A, PREGU #### [address] [address] Glucose (U) [Mass/Vol] Negative Normal Negative [facility] [place] Comment on above: Performed By: #### U A, PREGU #### [address] [address] Ketones Ql (U) Negative Normal Negative [facility] [place] Comment on above: Performed By: #### U A, PREGU #### [address] [address] UA Appear Clear Normal Clear [facility] [place] Comment on above: Performed By: #### U A, PREGU #### [address] [address] UA Blood Trace Abnormal Negative [facility] [place] Comment on above: Performed By: #### U A, PREGU #### [address] [address] UA Leuk Est Negative Normal Negative [facility] [place] Comment on above: Performed By: #### U A, PREGU #### [address] [address] UA Nitrite Negative Normal Negative [facility] [place] Comment on above: Performed By: #### U A, PREGU #### [address] [address] UA pH 7.0 Normal 5.0 - 8.0 [facility] [place] Comment on above: Performed By: #### U A, PREGU #### [address] [address] UA Protein Negative Normal Negative [facility] [place] Comment on above: Performed By: #### U A, PREGU #### [address] [address] UA Spec Grav 1.010 Abnormal 1.015-1.025 [facility] [place] Comment on above: Performed By: #### U A, PREGU #### [address] [place] [address] [place], [place] [address] UA Specimen Type Void Normal [facility] [place] Comment on above: Performed By: #### U A, PREGU #### [address] [place], [place] [address] UA Urobilinogen 0.2 E.U./dL Normal 0.2-1.0 [facility] [place] Comment on above: Performed By: #### U A, PREGU #### [address] [place], [place] [address] Urobilinogen (U) [Mass/Vol] Negative Normal Negative [facility] [place] Comment on above: Performed By: #### U A, PREGU #### [address] [address] UA DIP, URINE (POC)on 2023 BILIRUBIN UA (POCT) Negative Negative [facility] CLARITY UA (POCT) Cloudy [facility] COLOR UA (POCT) Yellow [facility] GLUCOSE UA (POCT) Negative Negative mg/dL [facility] Hemoglobin Ql (U) Negative Negative [facility] KETONE UA (POCT) Negative Negative mg/dL [facility] LEUKOCYTES UA (POCT) Negative Negative [facility] NITRITE UA (POCT) Negative Negative [facility] PH UA (POCT) 6.0 4.5 - 8.0 [facility] Protein Ql (U) Negative Negative mg/dL [facility] SPECIFIC GRAVITY UA (POCT) 1.020 1.005 - 1.030 [facility] UROBILINOGEN UA (POCT) 1.0 Normal E.U./dL [facility] Location:[facility], [address] [facility], [place], [address] [facility] POINT OF CARE [facility] 12 Lead EKGon 01-23-2024 12 Lead EKG [facility] Cardiovascular Services [address] [place] [address] 12 Lead EKG 01/23/24 0812 MR#: [id number] Acct: [id number] Name: ALINA MALIK Rep #: [id number] : 2005 19 From: Corina Clay MD Attending Dr: Nikki Olsen [facility], MARINE TOWER OPERATOR-C Status : REG CLI Ordering Dr: Nikki Olsen [employer]INE TOWER OPERATOR-C Date: 01/22 Location: PSN Sex: F C Admitted: Test Reason : FAST HR Blood Pressure : / mmHG Vent. Rate : 085 BPM Atrial Rate : 085 BPM P-R Int : 158 ms QRS Dur : 090 ms QT Int : 372 ms P-R-T Axes : 042 054 049 degrees QTc Int : 442 ms Normal sinus rhythm Normal ECG Confirmed by LOPEZ MACHADO, KATHY ([id number]), television news video editor MERLIN FAYE ([id number]) on 01/24/2024 10:26:39 AM Referred By: Nikki Olsen Confirmed By:JEFFREY CLAY MD 01/24/24 1026 Date Corina Clay MD CC: [facility] MARINE TOWER OPERATOR-C Nikki Olsen Signed Normal [facility] [place] [facility] 12 Lead EKGon 12-30-2023 12 Lead EKG [facility] Cardiovascular Services [address] [place] [address] 12 Lead EKG 12/30/23 0610 MR#: [id number] Acct: [id number] Name: ALINA MALIK Rep #: [id number] : 2005 From: Rigo Ulloa MD Attending Dr: Status: [...] normal ECG Confirmed by Rigo Ulloa ([id number]), television news video editor JESSICA SCOTT ([id number]) on 12/31/2023 12:51:05 PM Referred By: MOHINDER Confirmed By:Rigo Ulloa 12/31/23 1251 Date Rigo Ulloa MD CC: [facility] MARINE TOWER OPERATOR-C Nikki Olsen; Remy Sawyer DO Signed Normal [facility] [place] [facility] Basic Metabolic Profile (BMP )on 12-30-2023 BUN/CRE 10.4 RATIO Normal 10-20 [facility] [place] [facility] Comment on above: Performed By: #### L 501.5200, L700.6800, L500.2500, L100.0100, L501.9520 #### [facility] [place] [facility] [address] [place], [address] CA,Total 9.1 mg/dL Normal 8.5-10.1 [facility] [place] [facility] Comment on above: Performed By: #### L 501.5200, L700.6800, L500.2500, L100.0100, L501.9520 #### [facility] [place] [facility] [address] [place], [address] Chloride [Moles/Vol] 108 mmol/L High 98-107 [facility] Comment on above: Performed By: #### L 501.5200, L700.6800, L500.2500, L100.0100, L501.9520 #### [facility] [place] [facility] [address] [place], [address] CO2 [Moles/Vol] 26.0 mmol/L Normal 21.0-32.0 [facility] [place] [facility] Comment on above: Performed By: #### L 501.5200, L700.6800, L500.2500, L100.0100, L501.9520 #### [facility] [place] [facility] [address] [place], [address] Creatinine [Mass/Vol] 0.87 mg/dL Normal 0.55-1.02 [facility] Comment on above: Result Comment: The validity of the calculated GFR GFRAA in patients over 70 years has not been determined. Clinical correlation is essential. Performed By: #### L 501.5200, L700.6800, L500.2500, L100.0100, L501.9520 #### [facility] [place] [facility] [address] [place], [address] ECRCL 135.74 ml/min Normal [facility] [place] [facility] Comment on above: Performed By: #### L 501.5200, L700.6800, L500.2500, L100.0100, L501.9520 #### [facility] [place] [facility] [address] [place], [address] EST GFR - AA 106 mL/min Normal >60 [facility] [place] [facility] Comment on above: Result Comment: Afri can Austrian GFR Calc Performed By: #### L 501.5200, L700.6800, L500.2500, L100.0100, L501.9520 #### [facility] [place] [facility] [address] [place], [address] GAP 6 Normal 5-15 [facility] [place] [facility] Comment on above: Performed By: #### L 501.5200, L700.6800, L500.2500, L100.0100, L501.9520 #### [facility] [place] [facility] [address] [place], [address] GFR/1.73 sq M.predicted among non-blacks MDRD (S/P/Bld) [Vol rate/Area] 88 mL/min/{1.73_m2} Normal >60 [facility] [place] [facility] Comment on above: Result Comment: Non- GFR Calc Performed By: #### L 501.5200, L700.6800, L500.2500, L100.0100, L501.9520 #### [facility] [place] [facility] [address] [place], [address] Glucose [Mass/Vol] 108 mg/dL High 74-106 [facility] Comment on above: Result Comment: Fast ing Glucose result from 100 to 125 mg/dL suggests IMPAIRED HOMEOSTASIS per A.D.A. criteria. Performed By: #### L 501.5200, L700.6800, L500.2500, L100.0100, L501.9520 #### [facility] [place] [facility] [address] [place], [address] Potassium [Moles/Vol] 3.2 mmol/L Low 3.5-5.1 [facility] Comment on above: Performed By: #### L 501.5200, L700.6800, L500.2500, L100.0100, L501.9520 #### [facility] [place] [facility] [address] [place], [address] Sodium [Moles/Vol] 140 mmol/L Normal 136-145 [facility] Comment on above: Performed By: #### L 501.5200, L700.6800, L500.2500, L100.0100, L501.9520 #### [facility] [place] [facility] [address] [place], [address] Urea nitrogen [Mass/Vol] 9 mg/dL Normal 7-18 [facility] Comment on above: Performed By: #### L 501.5200, L700.6800, L500.2500, L100.0100, L501.9520 #### [facility] [place] [facility] [address] [place], [address] CBC W/Diff, Automatedon 07-0 8-2023 Absolute Lymph 3.92 X10 3/uL Normal 0.83-4.51 [facility] Comment on above: Performed By: #### L 501.5200, L700.6800, L500.2500, L100.0100, L501.9520 #### [facility] [place] [facility] [address] [place], [address] Absolute Neut 6.0 X10 3/uL Normal 2.0-7.7 [facility] Comment on above: Performed By: #### L 501.5200, L700.6800, L500.2500, L100.0100, L501.9520 #### [facility] [place] [facility] [address] [place], [address] Basophils/100 WBC (Bld) 0.6 % Normal 0-1 [facility] Comment on above: Performed By: #### L 501.5200, L700.6800, L500.2500, L100.0100, L501.9520 #### [facility] [address] [place], [address] Eosinophils/100 WBC (Bld) 4.1 % Normal 0-5 [facility] Comment on above: Performed By: #### L 501.5200, L700.6800, L500.2500, L100.0100, L501.9520 #### [facility] [place] [facility] [address] [place], [address] Erythrocyte distribution width (RBC) [Ratio] 14.2 % Normal 11.6-14.6 [facility] Comment on above: Performed By: #### L 501.5200, L700.6800, L500.2500, L100.0100, L501.9520 #### [facility] [place] [facility] [address] [place], [address] Hematocrit (Bld) [Volume fraction] 38.6 % Normal 37-47 [facility] Comment on above: Performed By: #### L 501.5200, L700.6800, L500.2500, L100.0100, L501.9520 #### [facility] [address] [place], [address] Hemoglobin (Bld) [Mass/Vol] 12.9 g/dL Normal 12.0-15.0 [facility] Comment on above: Performed By: #### L 501.5200, L700.6800, L500.2500, L100.0100, L501.9520 #### [facility] [address] [place], [address] IG% 0.300 Normal 0.0-0.9 [facility] Comment on above: Result Comment: IG% - Immature Granulocytes (promyelocytes, myelocytes and metamyelocytes) > 1% indicates that a LEFT SHIFT is Present. Performed By: #### L 501.5200, L700.6800, L500.2500, L100.0100, L501.9520 #### [facility] [address] [place], [address] Lymphocytes/100 WBC (Bld) 36.1 % Normal 19-41 [facility] Comment on above: Performed By: #### L 501.5200, L700.6800, L500.2500, L100.0100, L501.9520 #### [facility] [address] [place], [address] MCH (RBC) [Entitic mass] 27.5 pg Normal 27.0-32.0 [facility] Comment on above: Performed By: #### L 501.5200, L700.6800, L500.2500, L100.0100, L501.9520 #### [facility] [address] [place], [address] MCHC (RBC) [Mass/Vol] 33.4 g/dL Normal 32-36 [facility] Comment on above: Performed By: #### L 501.5200, L700.6800, L500.2500, L100.0100, L501.9520 #### [facility] [address] [place], [address] MCV (RBC) [Entitic vol] 82.3 fL Normal 81-99 [facility] Comment on above: Performed By: #### L 501.5200, L700.6800, L500.2500, L100.0100, L501.9520 #### [facility] [address] [place], [address] Monocytes/100 WBC (Bld) 3.9 % Normal 0-10 [facility] Comment on above: Performed By: #### L 501.5200, L700.6800, L500.2500, L100.0100, L501.9520 #### [facility] [address] [place], [address] Neutrophils/100 WBC (Bld) 55.0 % Normal 47-70 [facility] Comment on above: Performed By: #### L 501.5200, L700.6800, L500.2500, L100.0100, L501.9520 #### [facility] [address] [place], [address] Nucleated RBC (Bld) [#/Vol] 0 10*3/uL Normal 0-5 [facility] Comment on above: Performed By: #### L 501.5200, L700.6800, L500.2500, L100.0100, L501.9520 #### [facility] [address] [place], [address] Platelet mean volume (Bld) [Entitic vol] 8.9 fL Normal 6.2-12.0 [facility] Comment on above: Performed By: #### L 501.5200, L700.6800, L500.2500, L100.0100, L501.9520 #### [facility] [address] [place], [address] Platelets (Bld) [#/Vol] 385 10*3/uL Normal 150-450 [facility] [place] [facility] [facility] Comment on above: Performed By: #### L 501.5200, L700.6800, L500.2500, L100.0100, L501.9520 #### [facility] [address] [place], [address] RBC (Bld) [#/Vol] 4.69 10*6/uL Normal 4.2-5.4 [facility] Comment on above: Performed By: #### L 501.5200, L700.6800, L500.2500, L100.0100, L501.9520 #### [facility] [address] [place], [address] RDW SD 41.4 fl Normal 35.1-43.9 [facility] Comment on above: Performed By: #### L 501.5200, L700.6800, L500.2500, L100.0100, L501.9520 #### [facility] [address] [place], [address] WBC (Bld) [#/Vol] 10.9 10*3/uL Normal 4.4-11.0 [facility] Comment on above: Performed By: #### L 501.5200, L700.6800, L500.2500, L100.0100, L501.9520 #### [facility] [address] [place], [address] CTA Chest W/WO Contraston CTA Chest W/WO Contrast [facility] Imaging Services [address] [place] [address] CTA Chest W/WO Contrast MR#: [id number] Acct: [id number] Name: ALINA MALIK Rep #: [id number] : 2005 F 18 From: Demetris tian MD PCP: Nikki Olsen Maverick, MARINE TOWER OPERATOR-C Status: [facility] ER Study: CTA Chest W/WO Contrast Date of Exam: 12/30/23 Exam# [id number] Ordering [place]: [place] [id number] STUDY: CTA CHEST REASON FOR EXAM: Female, [...] 8:47 EDT Reading Location ID and State: [address] [place] [address] , Service support , CC: [facility] MARINE TOWER OPERATORVick Olsen; Dr. Erik Leal MD Interrelated Special Education Teacher: Signed Normal [facility] D-Dimer Quantitative (DVT/PE )on 12-30-2023 D-DIMER QUANT 0.68 FEU/ug/m Invalid Interpretation Code 0.27-0.49 [facility] Comment on above: Result Comment: D-Di emani ELEVATED (>0.49): Additional studies and clinical assessments are indicated to conclude diagnosis of: Deep Vein Thrombosis (DVT) or Pulmonary Embolism (PE) CRITICAL VALUE VERIFIED. CALLED TO BRIAN RAO (ER) 12/30/23 0707 Aston Gilman RESULTS READ BACK BY SAME. Performed By: #### L 501.2450, L501.5200, L500.3400, L500.2500, L100.0100, L700.6800 #### [facility] [address] [place], [address] Emergency Department Summary on 12-30-2023 Emergency Department Summary [facility] Medical Records Department [address] [place] [address] Emergency Department Summary 12/30/23 MR#: [id number] Acct: [id number] Name: ALINA MALIK Rep #: [id number] : 2005 18 From: Remy Sawyer DO PCP: JACQUELIN Flores, MARINE TOWER OPERATOR-C Status:REG ER Location: ED ADDENDUM by Dr. [...] 12/30/23 0857 Cosigner Signature (if applicable): cc: JACQUELIN MARINE TOWER OPERATOR-C Nikki Olsen * Signed HPI History of Present [...] She also denies any illicit drug use. [facility] Medical History EP (ectopic ) Palpitations [...] are equal (more content not included)... Normal [facility] Magnesiumon 12-30-2023 Magnesium [Mass/Vol] 2.1 mg/dL Normal 1.6-2.6 [facility] Comment on above: Performed By: #### L 501.5200, L700.6800, L500.2500, L100.0100, L501.9520 #### [facility] [address] [place], [address] ,Serum,hCG Quali.on 12-30-2023 HCG, SERUM QUAL Negative Normal [facility] Comment on above: Performed By: #### L 501.5200, L700.6800, L500.2500, L100.0100, L501.9520 #### [facility] [address] [place], [address] Thyroid Stim Hormone (TSH)on 12-30-2023 TSH 2.48 uIU/mL Normal 0.358-3.74 [facility] Comment on above: Performed By: #### L 501.2450, L501.5200, L500.3400, L500.2500, L100.0100, L700.6800 #### [facility] [address] [place], [address] Basic metabolic 2000 panelon 08-31-2023 Anion gap [Moles/Vol] 13 mmol/L Normal 9-[address] [facility] Comment on above: Order Comment: Speci men Type: BLOOD SPECIMEN Ordering Facility: [facility] Address: [address] [place] [address] Performed By: #### 2 4321-2 #### [facility] CLIA [id number] [address] [place] [address] [place] Calcium [Mass/Vol] 9.2 mg/dL Normal 8.5-10.2 [facility] Comment on above: Order Comment: Speci men Type: BLOOD SPECIMEN Ordering Facility: [facility] Address: [address] [place] [address] Performed By: #### 2 4321-2 #### [facility] [facility] CLIA [id number] [address] [place] [address] [place] Chloride [Moles/Vol] 105 mmol/L Normal 97-105 [facility] Comment on above: Order Comment: Speci men Type: BLOOD SPECIMEN Ordering Facility: [facility] Address: [address] [place] [address] Performed By: #### 2 4321-2 #### [facility] CLIA [id number] [address] [place] [address] [place] CO2 [Moles/Vol] 23 mmol/L Normal 22-30 [facility] Comment on above: Order Comment: Speci men Type: BLOOD SPECIMEN Ordering Facility: [facility] Address: [address] [place] [address] Performed By: #### 2 4321-2 #### [facility] CLIA [id number] [address] [place] [address] [place] Creatinine [Mass/Vol] 0.70 mg/dL Normal 0.58-0.96 [facility] Comment on above: Order Comment: Speci men Type: BLOOD SPECIMEN Ordering Facility: [facility] Address: [address] [place] [address] Performed By: #### 2 4321-2 #### [facility] CLIA [id number] [address] [place] [address] [place] Creatinine and Glomerular filtration rate.predicted panel (S/P/Bld) 127 mL/min/1.73m??? Normal >=60 [facility] Comment on above: Order Comment: Oh sullivan Type: BLOOD SPECIMEN Ordering Facility: [facility] Address: [address] [place] [address] Result Comment: Jayla mated Glomerular Filtration Rate [...] GFR. Performed By: #### 2 4321-2 #### [facility] CLIA [id number] [address] [place] [address] [place] Glucose [Mass/Vol] 114 mg/dL High 74-99 [facility] Comment on above: Order Comment: Oh sullivan Type: BLOOD SPECIMEN Ordering Facility: [facility] Address: [address] [place] [address] Result Comment: The [place] Diabetes Association (ADA) provides guidance for cutoff [...] Standards of Medical Care in Diabetes 2016, [place] Diabetes Association. Diabetes Care. 2016.39(Suppl 1). Performed By: #### 2 4321-2 #### [facility] CLIA [id number] [address] [place] [address] [place] Potassium [Moles/Vol] 3.5 mmol/L Low 3.7-5.1 [facility] Comment on above: Order Comment: Oh sullivan Type: BLOOD SPECIMEN Ordering Facility: [facility] Address: [address] [place] [address] Performed By: #### 2 4321-2 #### [facility] [place] [facility] CLIA [id number] [address] [place] [address] [place] Sodium [Moles/Vol] 141 mmol/L Normal 136-144 [facility] Comment on above: Order Comment: Speci men Type: BLOOD SPECIMEN Ordering Facility: [facility] Address: [address] [place] [address] Performed By: #### 2 4321-2 #### [facility] [place] [facility] CLIA [id number] [address] [place] [address] [place] Urea nitrogen [Mass/Vol] 11 mg/dL Normal 7-21 [facility] Comment on above: Order Comment: Speci men Type: BLOOD SPECIMEN Ordering Facility: [facility] Address: [address] [place] [address] Performed By: #### 2 4321-2 #### [facility] [place] [facility] CLIA [id number] [address] [place] [id number] [place] CBC W Auto Differential pane l (Bld)on 08-31-2023 Basophils (Bld) [#/Vol] 10*3/uL Normal <0.11 [facility] Comment on above: Order Comment: Speci men Type: BLOOD SPECIMENOrdering Facility: [facility] Address: [address] [place] [address] Performed By: #### 5 7021-8 ####[facility] [id number] [place] [id number] [place] Basophils/100 WBC (Bld) 0.1 % Normal [facility] Comment on above: Order Comment: Speci men Type: BLOOD SPECIMENOrdering Facility: [facility] Address: [address] [place] [address] Performed By: #### 5 7021-8 ####[facility] [place] LABCLIA [id number] [place] [address] [place] Differential cell count method Nom (Bld) Auto Normal [facility] Comment on above: Order Comment: Speci men Type: BLOOD SPECIMENOrdering Facility: [facility] Address: [address] [place] [address] Performed By: #### 5 7021-8 ####[facility] [facility]IA [id number] [facility] [place] [address] [place] Eosinophils (Bld) [#/Vol] 0.03 10*3/uL Normal <0.46 [facility] Comment on above: Order Comment: Speci men Type: BLOOD SPECIMENOrdering Facility: [facility] Address: [address] [place] [address] Performed By: #### 5 7021-8 ####[facility] [facility]CLIA [id number] [place] [address] [place] Eosinophils/100 WBC (Bld) 0.2 % Normal [facility] Comment on above: Order Comment: Speci men Type: BLOOD SPECIMENOrdering Facility: [facility] Address: [address] [place] [address] Performed By: #### 5 7021-8 ####[facility] [place] [facility]IA [id number] [place] [address] [place] Erythrocyte distribution width (RBC) [Ratio] 14.2 % Normal 11.5-15.0 [facility] Comment on above: Order Comment: Speci men Type: BLOOD SPECIMENOrdering Facility: [facility] Address: [address] [place] [address] Performed By: #### 5 7021-8 ####[facility] [facility]CLIA [id number] [place] [address] [place] Hematocrit (Bld) [Volume fraction] 38.3 % Normal 36.0-46.0 [facility] Comment on above: Order Comment: Speci men Type: BLOOD SPECIMENOrdering Facility: [facility] Address: [address] [place] [address] Performed By: #### 5 7021-8 ####[facility] [facility]IA [id number] [facility] [place] [address] [place] Hemoglobin (Bld) [Mass/Vol] 12.7 g/dL Normal 11.5-15.5 [facility] Comment on above: Order Comment: Speci men Type: BLOOD SPECIMENOrdering Facility: [facility] Address: [address] [place] [address] Performed By: #### 5 7021-8 ####[facility] [place] [facility]CLIA [id number] [place] [address] [place] Immature granulocytes (Bld) [#/Vol] 0.06 10*3/uL Normal <0.10 [facility] Comment on above: Order Comment: Speci men Type: BLOOD SPECIMENOrdering Facility: [facility] Address: [address] [place] [address] Performed By: #### 5 7021-8 ####[facility] [place] [facility]CLIA [id number] [place] [address] [place] Immature granulocytes/100 WBC (Bld) 0.3 % Normal [facility] Comment on above: Order Comment: Speci men Type: BLOOD SPECIMENOrdering Facility: [facility] Address: [address] [place] [address] Performed By: #### 5 7021-8 ####[facility] [facility]CLIA [id number] [place] [address] [place] Lymphocytes (Bld) [#/Vol] 4.28 10*3/uL High 1.00-4.00 [facility] Comment on above: Order Comment: Speci men Type: BLOOD SPECIMENOrdering Facility: [facility] Address: [address] [place] [address] Performed By: #### 5 7021-8 ####[facility] [facility]CLIA [id number] [place] [address] [facility] [place] Lymphocytes/100 WBC (Bld) 22.8 % Normal [facility] Comment on above: Order Comment: Speci men Type: BLOOD SPECIMENOrdering Facility: [facility] Address: [address] [place] [address] Performed By: #### 5 7021-8 ####[facility] [place] LABCLIA [id number] [place] [address] [place] MCH (RBC) [Entitic mass] 27.6 pg Normal 26.0-34.0 [facility] Comment on above: Order Comment: Speci men Type: BLOOD SPECIMENOrdering Facility: [facility] Address: [address] [place] [address] Performed By: #### 5 7021-8 ####[facility] [place] LABCLIA [id number] [place] [address] [place] MCHC (RBC) [Mass/Vol] 33.2 g/dL Normal 30.5-36.0 [facility] Comment on above: Order Comment: Speci men Type: BLOOD SPECIMENOrdering Facility: [facility] Address: [address] [place] [address] Performed By: #### 5 7021-8 ####[facility] LABCLIA [id number] [address] OF [facility] MCV (RBC) [Entitic vol] 83.3 fL Normal 80.0-100.0 [facility] Comment on above: Order Comment: Speci men Type: BLOOD SPECIMENOrdering Facility: [facility] Address: [address] [place] [address] Performed By: #### 5 7021-8 ####[facility] LABCLIA [id number] [place] [address] [place] Monocytes (Bld) [#/Vol] 0.58 10*3/uL Normal <0.87 [facility] Comment on above: Order Comment: Speci men Type: BLOOD SPECIMENOrdering Facility: [facility] Address: [address] [place] [address] Performed By: #### 5 7021-8 ####[facility] LABCLIA [id number] [place] [address] [facility] Monocytes/100 WBC (Bld) 3.1 % Normal [facility] Comment on above: Order Comment: Speci men Type: BLOOD SPECIMENOrdering Facility: [facility] Address: [address] [place] [address] Performed By: #### 5 7021-8 ####[facility] [place] LABCLIA [id number] [place] [address] [place] Neutrophils (Bld) [#/Vol] 13.83 10*3/uL High 1.45-7.50 [facility] Comment on above: Order Comment: Speci men Type: BLOOD SPECIMENOrdering Facility: [facility] Address: [address] [place] [address] Performed By: #### 5 7021-8 ####[facility] [place] LABCLIA [id number] [place] [address] [place] Neutrophils/100 WBC (Bld) 73.5 % Normal [facility] Comment on above: Order Comment: Speci men Type: BLOOD SPECIMENOrdering Facility: [facility] Address: [address] [place] [address] Performed By: #### 5 7021-8 ####[facility] [place] [facility]CLIA [id number] [place] [address] [place] Nucleated RBC (Bld) [#/Vol] Normal [facility] Comment on above: Order Comment: Speci men Type: BLOOD SPECIMENOrdering Facility: [facility] Address: [address] [place] [address] Performed By: #### 5 7021-8 ####[facility] [place] LABCLIA [id number] [place] [address] [place] Nucleated RBC/100 WBC (Bld) [Ratio] Normal [facility] Comment on above: Order Comment: Speci men Type: BLOOD SPECIMENOrdering Facility: [facility] Address: [address] [place] [address] Performed By: #### 5 7021-8 ####[facility] [place] LABCLIA [id number] [place] [address] [place] Platelet mean volume (Bld) [Entitic vol] 8.8 fL Low 9.0-12.7 [facility] Comment on above: Order Comment: Speci men Type: BLOOD SPECIMENOrdering Facility: [facility] Address: [address] [place] [address] Performed By: #### 5 7021-8 ####[facility] [id number] [place] [address] [facility] Platelets (Bld) [#/Vol] 397 10*3/uL Normal 150-400 [facility] Comment on above: Order Comment: Speci men Type: BLOOD SPECIMENOrdering Facility: [facility] Address: [address] [place] [address] Performed By: #### 5 7021-8 ####[facility] LABCLIA [id number] [place] [address] [facility] RBC (Bld) [#/Vol] 4.60 10*6/uL Normal 3.90-5.20 [facility] Comment on above: Order Comment: Speci men Type: BLOOD SPECIMENOrdering Facility: [facility] Address: [address] [place] [address] Performed By: #### 5 7021-8 ####[facility] LABCLIA [id number] [place] [address] [place] WBC (Bld) [#/Vol] 18.80 10*3/uL High 3.70-11.00 [facility] Comment on above: Order Comment: Speci men Type: BLOOD SPECIMENOrdering Facility: [facility] Address: [address] [place] [address] Performed By: #### 5 7021-8 ####[facility] LAB[facility] [id number] [place] [address] [facility] [place] Carboxyhemoglobin (BldCoV) [ Mass fraction]on 08-31-2023 Carboxyhemoglobin (BldV) [Mass fraction] 1.6 % Normal 0.0-2.0 [facility] Comment on above: Order Comment: Speci men Type: BLOOD SPECIMEN Ordering Facility: [facility] Address: [facility] [address] Result Comment: Carb oxyhemoglobin Reference Range for Smokers: 2.0-8.0% Performed By: #### 6 3524-3 #### [facility] CLIA [id number] [address] [place] [address] [address] [facility] ED NOTEon 08-31-2023 ED NOTE HNO ID: [id number] Author: CHERYL PÉREZ RN Service: ? Author [...] do anything else to help you? No [facility] ED NOTE HNO ID: [id number] Author: CARINA GARCIA RN Service: Emergency Medicine Author Type: Registered Nurse Type: ED Notes Filed: 08/31/2023 00:22 Note Text: Patient discharge instructions given to patient. Patient educated on discharge instructions and prescriptions. Patient denied having questions at this time regarding discharge instructions. Patient discharged home at this time. [facility] ED NOTE HNO ID: [id number] Author: CARINA GARCIA RN Service: Emergency Medicine Author Type: Registered Nurse Type: ED Notes Filed: 08/31/2023 00:07 Note Text: Patient informed about the name of the medication(s), what the medication(s) is(are) for, and what to expect with/from med administration. Patient given opportunity to ask questions. Medication(s) include: Toradol [facility] ED NOTE HNO ID: [id number] Author: CARINA GARCIA RN Service: Emergency Medicine Author Type: Registered Nurse Type: ED Notes Filed: 08/30/2023 23:10 Note Text: Change of shift report received from Jessica Frazier RN. I assumed patient care at this time. Normal [facility] ED PROV NOTEon 08-31-2023 ED PROV NOTE HNO ID: [id number] Author: ANDREW DELGADILLO MD Service: Emergency Medicine Author Type: Physician Type: ED Provider Notes Filed: 08/31/2023 00:12 Note Text: ED Provider Note Patient Name: Alina Malik : 2005 SERVICE DATE: 08/30/23 History [...] Temp src Resp SpO2 Weight Height 08/30/23 21508/30/23215108/30/232151 -- 08/30/23215108/30/23215108/30/232150 -- 155/91 (!) 127 37.7 ?C (99.8 [...] 08/31/23 0011 Andrew Delgadillo's Documentation SatAug 30, [id number] BP: 140/83 Clinical Impressions as of 08/31/23 0011 Headache disorder COVID-19 test performed per [facility] [place] policy for suspected COVID community exposure. MDM [...] worst heada (more content not included)... Normal [facility] FLUABV+SARS-CoV-2+RSV Pnl Re sp KATELYNN+probeon 08-31-2023 FLUABV+SARS-CoV-2+RSV Pnl Resp KATELYNN+probe COVID 19 RESULT: Not detected The method used is RT-PCR or an equivalent NAAT method. Reference Range(the expected result in uninfected individuals): Not detected INFLUENZA A PCR: Not detected INFLUENZA B PCR: Not detected RSV PCR: Not detected Normal [facility] Comment on above: Performed By: #### 9 5941-1 ####[facility] LABCLIA [id number] [place] [address] [facility] ED NOTEon 08-30-2023 ED NOTE HNO ID: [id number] Author: JAZMIN JOHNSTON RN Service: Nursing Author Type: Registered Nurse Type: ED Notes Filed: 08/30/2023 21:54 Note Text: Pt reports she was seen yesterday for same problem but feels like it's worse today. Pt c/o headache and neck pain and states I just feel really weird Normal [facility] ALLIED HEALTHon 08-29-2023 ALLIED HEALTH HNO ID: [id number] Author: JUSTINO STOKES CT Service: Radiology Author Type: Technologist Type: [...] PRESENTS WITH AN IMPLANTABLE OR ATTACHED TECHNICAL BUYER: No RADIOLOGY DEPARTMENT: CT; Exam(s) Completed: Brain PERIPHERAL IV DATA: Not applicable SIGNED BY: Justino Stokes, CT August 29, 2023 6:49 PM Normal [facility] CBC W Auto Differential pane l (Bld)on 08-29-2023 Basophils (Bld) [#/Vol] 0.04 10*3/uL Normal <0.11 [facility] Comment on above: Order Comment: Speci men Type: BLOOD SPECIMEN Ordering Facility: [facility] Address: [address] [place] [address] Performed By: #### 5 7021-8 #### [facility] [place] [facility] CLIA [id number] [address] [place] [address] [place] Basophils/100 WBC (Bld) 0.4 % Normal [facility] Comment on above: Order Comment: Speci men Type: BLOOD SPECIMEN Ordering Facility: [facility] Address: [address] [place] [address] Performed By: #### 5 7021-8 #### [facility] [place] [facility] CLIA [id number] [address] [place] Differential cell count method Nom (Bld) Auto Normal [facility] Comment on above: Order Comment: Speci men Type: BLOOD SPECIMEN Ordering Facility: [facility] Address: [address] [place] [address] Performed By: #### 5 7021-8 #### [facility] [place] [facility] CLIA [id number] [address] [place] [address] [place] Eosinophils (Bld) [#/Vol] 0.27 10*3/uL Normal <0.46 [facility] Comment on above: Order Comment: Speci men Type: BLOOD SPECIMEN Ordering Facility: [facility] Address: [address] [place] [address] Performed By: #### 5 7021-8 #### [facility] [place] [facility] CLIA [id number] [address] [place], [place] [address] [place] [address] [place] Eosinophils/100 WBC (Bld) 2.6 % Normal [facility] Comment on above: Order Comment: Speci men Type: BLOOD SPECIMEN Ordering Facility: [facility] Address: [address] [place] [address] Performed By: #### 5 7021-8 #### [facility] [place] [facility] CLIA [id number] [address] [place], [place] [id number] [place] [address] [place] Erythrocyte distribution width (RBC) [Ratio] 14.2 % Normal 11.5-15.0 [facility] Comment on above: Order Comment: Speci men Type: BLOOD SPECIMEN Ordering Facility: [facility] Address: [address] [place] [address] Performed By: #### 5 7021-8 #### [facility] [place] [facility] CLIA [id number] [address] [place] Hematocrit (Bld) [Volume fraction] 38.5 % Normal 36.0-46.0 [facility] Comment on above: Order Comment: Speci men Type: BLOOD SPECIMEN [facility] [facility] Address: [address] [place] [address] Performed By: #### 5 7021-8 #### [facility] CLIA [id number] [address] [place] Hemoglobin (Bld) [Mass/Vol] 12.7 g/dL Normal 11.5-15.5 [facility] Comment on above: Order Comment: Speci men Type: BLOOD SPECIMEN Ordering Facility: [facility] Address: [address] [place] [address] Performed By: #### 5 7021-8 #### [facility] CLIA [id number] [address] [place] Immature granulocytes (Bld) [#/Vol] 0.03 10*3/uL Normal <0.10 [facility] Comment on above: Order Comment: Speci men Type: BLOOD SPECIMEN Ordering Facility: [facility] Address: [address] [place] [address] Performed By: #### 5 7021-8 #### [facility] CLIA [id number] [address] [place] [address] [place] Immature granulocytes/100 WBC (Bld) 0.3 % Normal [facility] Comment on above: Order Comment: Speci men Type: BLOOD SPECIMEN Ordering Facility: [facility] Address: [address] [place] [address] Performed By: #### 5 7021-8 #### [facility] CLIA [id number] [address] [place] [address] [place] Lymphocytes (Bld) [#/Vol] 3.92 10*3/uL Normal 1.00-4.00 [facility] Comment on above: Order Comment: Speci men Type: BLOOD SPECIMEN Ordering Facility: [facility] Address: [address] [place] [address] Performed By: #### 5 7021-8 #### [facility] CLIA [id number] [address] Lymphocytes/100 WBC (Bld) 37.1 % Normal [facility] Comment on above: Order Comment: Speci men Type: BLOOD SPECIMEN Ordering Facility: [facility] Address: [address] [place] [address] Performed By: #### 5 7021-8 #### [facility] CLIA [id number] [address] [place] [address] [place] MCH (RBC) [Entitic mass] 27.5 pg Normal 26.0-34.0 [facility] Comment on above: Order Comment: Speci men Type: BLOOD SPECIMEN Ordering Facility: [facility] Address: [address] [place] [address] Performed By: #### 5 7021-8 #### [facility] CLIA [id number] [address] [place] [address] [place] MCHC (RBC) [Mass/Vol] 33.0 g/dL Normal 30.5-36.0 [facility] Comment on above: Order Comment: Speci men Type: BLOOD SPECIMEN Ordering Facility: [facility] Address: [address] [place] [address] Performed By: #### 5 7021-8 #### [facility] CLIA [id number] [address] [place] [address] [place] MCV (RBC) [Entitic vol] 83.3 fL Normal 80.0-100.0 [facility] Comment on above: Order Comment: Speci men Type: BLOOD SPECIMEN Ordering Facility: [facility] Address: [address] [place] [address] Performed By: #### 5 7021-8 #### [facility] CLIA [id number] [address] [place] [address] [place] Monocytes (Bld) [#/Vol] 0.38 10*3/uL Normal <0.87 [facility] Comment on above: Order Comment: Speci men Type: BLOOD SPECIMEN Ordering Facility: [facility] Address: [address] [place] [address] Performed By: #### 5 7021-8 #### [facility] CLIA [id number] [address] [place] Monocytes/100 WBC (Bld) 3.6 % Normal [facility] Comment on above: Order Comment: Speci men Type: BLOOD SPECIMEN Ordering Facility: [facility] Address: [address] [place] [address] Performed By: #### 5 7021-8 #### [facility] CLIA [id number] [address] [place] [address] [place] Neutrophils (Bld) [#/Vol] 5.92 10*3/uL Normal 1.45-7.50 [facility] Comment on above: Order Comment: Speci men Type: BLOOD SPECIMEN Ordering Facility: [facility] Address: [address] [place] [address] Performed By: #### 5 7021-8 #### [facility] CLIA [id number] [address] [place] [address] [place] Neutrophils/100 WBC (Bld) 56.0 % Normal [facility] Comment on above: Order Comment: Speci men Type: BLOOD SPECIMEN Ordering Facility: [facility] Address: [address] [place] [address] Performed By: #### 5 7021-8 #### [facility] CLIA [id number] [address] [place] [address] [place] Nucleated RBC (Bld) [#/Vol] Normal [facility] Comment on above: Order Comment: Speci men Type: BLOOD SPECIMEN Ordering Facility: [facility] Address: [address] [place] [address] Performed By: #### 5 7021-8 #### [facility] CLIA [id number] [address] [place] [address] [place] Nucleated RBC/100 WBC (Bld) [Ratio] Normal [facility] Comment on above: Order Comment: Speci men Type: BLOOD SPECIMEN Ordering Facility: [facility] Address: [address] [place] [address] Performed By: #### 5 7021-8 #### [facility] CLIA [id number] [address] [place] [address] [place] Platelet mean volume (Bld) [Entitic vol] 8.6 fL Low 9.0-12.7 [facility] Comment on above: Order Comment: Speci men Type: BLOOD SPECIMEN Ordering Facility: [facility] Address: [address] [place] [address] Performed By: #### 5 7021-8 #### [facility] CLIA [id number] [address] [place] [address] [place] Platelets (Bld) [#/Vol] 358 10*3/uL Normal 150-400 [facility] Comment on above: Order Comment: Speci men Type: BLOOD SPECIMEN Ordering Facility: [facility] Address: [facility] [place] [address] Performed By: #### 5 7021-8 #### [facility] CLIA [id number] [address] [place] [address] [place] RBC (Bld) [#/Vol] 4.62 10*6/uL Normal 3.90-5.20 [facility] Comment on above: Order Comment: Speci men Type: BLOOD SPECIMEN Ordering Facility: [facility] Address: [address] [place] [address] Performed By: #### 5 7021-8 #### [facility] CLIA [id number] [address] [place] [address] [facility] WBC (Bld) [#/Vol] 10.56 10*3/uL Normal 3.70-11.00 [facility] Comment on above: Order Comment: Speci men Type: BLOOD SPECIMEN Ordering Facility: [facility] Address: [address] [place] [address] Performed By: #### 5 7021-8 #### [facility] CLIA [id number] [address] [place], [place] [id number] [facility] CT BRAIN WO IVCONon 08-29-[address] BRAIN WO IVCON * * *Final Report* * * DATE OF EXAM: Aug 29 2023 6:54PM [facility] 0504 - CT BRAIN WO IVCON / [...] control(AEC) and iterative recon COMPARISON: None. RESULT: Pathology Teacher (topogram) images: No additional findings. Post-operative change: [...] IMPRESSION: No evidence of acute intracranial process Interrelated Special Education Teacher: VIOLETTA Transcribe Date/Time: Aug 29 2023 7:03P Dictated by : PATRICK BLACKWELL MD This examination was interpreted and the report reviewed and electronically signed by: PATRICK BLACKWELL MD on Aug 29 2023 7:09PM EST [id number] Normal [facility] Comprehensive metabolic 2000 panelon 08-29-2023 Albumin [Mass/Vol] 4.3 g/dL Normal 3.9-4.9 [facility] Comment on above: Order Comment: Oh sullivan Type: BLOOD SPECIMEN Ordering Facility: [facility] Address: [address] [place] [address] Performed By: #### 2 4323-8, 87818-2, 0-3 #### [facility] CLIA [id number] [address] [place] [address] [place] ALP [Catalytic activity/Vol] 122 U/L Normal 34-123 [facility] Comment on above: Order Comment: Oh sullivan Type: BLOOD SPECIMEN Ordering Facility: [facility] Address: [address] [place] [address] Performed By: #### 2 4323-8, 10505-7, 0-3 #### [facility] CLIA [id number] [address] [place] [address] [place] ALT With P-5'-P [Catalytic activity/Vol] 14 U/L Normal 7-38 [facility] Comment on above: Order Comment: Oh sullivan Type: BLOOD SPECIMEN Ordering Facility: [facility] Address: [address] [place] [address] Performed By: #### 2 4323-8, 22780-7, 0-3 #### [facility] CLIA [id number] [address] [place] [address] [place] Anion gap [Moles/Vol] 12 mmol/L Normal 9-18 [facility] Comment on above: Order Comment: Speci men Type: BLOOD SPECIMEN Ordering Facility: [facility] Address: [address] [place] [address] Performed By: #### 2 4323-8, 68051-0, 0-3 #### [facility] CLIA [id number] [address] [place] [address] [place] AST With P-5'-P [Catalytic activity/Vol] 18 U/L Normal 13-35 [facility] Comment on above: Order Comment: Speci men Type: BLOOD SPECIMEN Ordering Facility: [facility] Address: [address] [place] [address] Performed By: #### 2 4323-8, , 0-3 #### [facility] CLIA [id number] [address] [place] [address] [place] Bilirubin [Mass/Vol] 0.5 mg/dL Normal 0.2-1.3 [facility] Comment on above: Order Comment: Speci men Type: BLOOD SPECIMEN Ordering Facility: [facility] Address: [address] [place] [address] Performed By: #### 2 4323-8, , 0-3 #### [facility] CLIA [id number] [address] [place] [address] [place] Calcium [Mass/Vol] 9.2 mg/dL Normal 8.5-10.2 [facility] Comment on above: Order Comment: Speci men Type: BLOOD SPECIMEN Ordering Facility: [facility] Address: [address] [place] [address] Performed By: #### 2 4323-8, , 0-3 #### [facility] CLIA [id number] [address] [place] [address] [place] Chloride [Moles/Vol] 105 mmol/L Normal 97-105 [facility] Comment on above: Order Comment: Speci men Type: BLOOD SPECIMEN Ordering Facility: [facility] Address: [address] [place] [address] Performed By: #### 2 4323-8, , 3 #### [facility] CLIA [id number] [address] [place] [address] [place] CO2 [Moles/Vol] 24 mmol/L Normal 22-30 [facility] Comment on above: Order Comment: Oh men Type: BLOOD SPECIMEN Ordering Facility: [facility] Address: [address] [place] [address] Performed By: #### 2 4323-8, , 3039-08 #### [facility] CLIA [id number] [address] [place] [address] [facility] Creatinine [Mass/Vol] 0.74 mg/dL Normal 0.58-0.96 [facility] Comment on above: Order Comment: Oh sullivan Type: BLOOD SPECIMEN Ordering Facility: [facility] Address: [address] [place] [address] Performed By: #### 2 4323-8, , 3 #### [facility] CLIA [id number] [address] [place] [address] [facility] Creatinine and Glomerular filtration rate.predicted panel (S/P/Bld) 119 mL/min/1.73m??? Normal >=60 [facility] Comment on above: Order Comment: Specdavid sullivan Type: BLOOD SPECIMEN Ordering Facility: [facility] Address: [address] [place], [place] [address] Result Comment: Jayla mated Glomerular Filtration Rate [...] actual GFR. Performed By: #### 2 4323-8, , 3040-3 #### [facility] CLIA [id number] [address] [place] [address] [place] Glucose [Mass/Vol] 104 mg/dL High 74-99 [facility] Comment on above: Order Comment: Oh sullivan Type: BLOOD SPECIMEN Ordering Facility: [facility] Address: [address] [place] [address] Result Comment: The [place] Diabetes Association (ADA) provides guidance for cutoff [...] Standards of Medical Care in Diabetes 2016, [employer]. Diabetes Care. 2016.39(Suppl 1). Performed By: #### 2 4323-8, , 3039-3 #### [facility] CLIA [id number] [address] [place] [address] [place] Potassium [Moles/Vol] 3.9 mmol/L Normal 3.7-5.1 [facility] Comment on above: Order Comment: Oh sullivan Type: BLOOD SPECIMEN Ordering Facility: [facility] Address: [address] [place], [place] [address] Performed By: #### 2 4323-8, , 3039-3 #### [facility] CLIA [id number] [address] [place] [address] [place] Protein [Mass/Vol] 7.5 g/dL Normal 6.3-8.0 [facility] Comment on above: Order Comment: Oh sullivan Type: BLOOD SPECIMEN Ordering Facility: [facility] Address: [address] [place], [place] [address] Performed By: #### 2 4323-8, , 3040-3 #### [facility] CLIA [id number] [address] [place] [address] [place] Sodium [Moles/Vol] 141 mmol/L Normal 136-144 [facility] Comment on above: Order Comment: Speci men Type: BLOOD SPECIMEN Ordering Facility: [facility] Address: [address] [place] [address] Performed By: #### 2 4323-8, 16163-7, 0-3 #### [facility] CLIA [id number] [address] [place] [address] [place] Urea nitrogen [Mass/Vol] 14 mg/dL Normal 7-21 [facility] Comment on above: Order Comment: Speci men Type: BLOOD SPECIMEN Ordering Facility: [facility] Address: [address] [place] [address] Performed By: #### 2 4323-8, 43378-6, 3039-3 #### [facility] CLIA [id number] [address] [place] [address] [facility] ED NOTEon 08-29-2023 ED NOTE HNO ID: [id number] Author: CANDY TEMPLE RN Service: Emergency Medicine [...] DATE: August 30, 2023 TIME: 12:45 PM [facility] ED NOTE HNO ID: [id number] Author: CARINA GARCIA RN Service: Emergency Medicine Author Type: Registered Nurse Type: ED Notes Filed: 08/29/2023 20:55 Note Text: Patient discharge instructions given to patient. Patient educated on discharge instructions. Patient denied having questions at this time regarding discharge instructions. Patient discharged home at this time. [facility] ED NOTE HNO ID: [id number] Author: CARINA GARCIA RN Service: Emergency Medicine Author Type: Registered Nurse Type: ED Notes Filed: 08/29/2023 20:39 Note Text: Patient informed about the name of the medication(s), what the medication(s) is(are) for, and what to expect with/from med administration. Patient given opportunity to ask questions. Medication(s) include: Decadron. [facility] ED NOTE HNO ID: [id number] Author: CARINA GARCIA RN Service: Emergency Medicine Author Type: Registered Nurse Type: ED Notes Filed: 08/29/2023 19:19 Note Text: Patient informed about the name of the medication(s), what the medication(s) is(are) for, and what to expect with/from med administration. Patient given opportunity to ask questions. Medication(s) include: Toradol, Magnesium Sulfate. [facility] ED NOTE HNO ID: [id number] Author: CARINA GARCIA RN Service: Emergency Medicine Author Type: Registered Nurse Type: ED Notes Filed: 08/29/2023 20:56 Note Text: Change of shift report received from Jeanie Cody RN. I assumed patient care at this time. [facility] ED NOTE HNO ID: [id number] Author: JEANIE MCKINNON RN Service: ? Author [...] eyes and at the base of head. [facility] ED PROV NOTEon 08-29-2023 ED PROV NOTE HNO ID: [id number] Author: TORRES TREVIÑO MD Service: Emergency Medicine [...] went to urgent care and then the [facility] where she had blood work and [...] stroke scale 0. Ambulatory without ataxia. Negative ssskmy-lf-nibl bilaterally. Negative test of skew. No vertical or horizontal nystagmus noted on exam, back no notable nystagmus on exam. (more content not included)... Normal [facility] HCG Preg Ur Qlon 08-29-2023 HCG ( test) Ql (U) Negative Normal Negative [facility] Comment on above: Order Comment: Oh sullivan Type: URINE SPECIMEN Ordering Facility: [facility] Address: [address] [place] [address] Result Comment: This test is intended to aid in the early detection of . Very dilute urine samples, as indicated by a low specific gravity, may not contain labor relations representative levels of hCG. This test detects [...] . Performed By: #### 2 106-3 #### [facility] CLIA [id number] [address] [place] [address] [place] Lipase SerPl-cCncon 08-29-19 Lipase [Catalytic activity/Vol] 18 U/L Normal 16-61 [facility] Comment on above: Order Comment: Oh sullivan Type: BLOOD SPECIMEN Ordering Facility: [facility] Address: [address] [place] [address] Performed By: #### 2 4323-8, 32129-2, 0-3 #### [facility] CLIA [id number] [address] [place] [address] [place] Magnesium SerPl-mCncon 08-28 Magnesium [Mass/Vol] 2.0 mg/dL Normal 1.7-2.3 [facility] Comment on above: Order Comment: Oh sullivan Type: BLOOD SPECIMEN Ordering Facility: [facility] Address: [address] [place] [address] Performed By: #### 2 4323-8, 33084-5, 0-3 #### [facility] CLIA [id number] [address] [place] [address] [place] Urinalysis complete panel (U )on 08-29-2023 Bacteria LM.HPF (Urine sed) [#/Area] Rare Abnormal None Seen [facility] Comment on above: Order Comment: Speci men Type: URINE SPECIMEN Ordering Facility: [facility] Address: [address] [place] [address] Performed By: #### 2 4356-8 #### [facility] CLIA [id number] [address] [place] [address] [place] Bilirubin Ql (U) Negative Normal Negative [facility] Comment on above: Order Comment: Speci men Type: URINE SPECIMEN Ordering Facility: [facility] Address: [address] [place] [address] Performed By: #### 2 4356-8 #### [facility] CLIA [id number] [address] [place] [address] [facility] Clarity (Unsp spec) Clear Normal Clear [facility] Comment on above: Order Comment: Speci men Type: URINE SPECIMEN Ordering Facility: [facility] Address: [address] [place] [address] Performed By: #### 2 4356-8 #### [facility] CLIA [id number] [address] [place] [address] [facility] Color (U) Yellow Normal Yellow [facility] Comment on above: Order Comment: Speci men Type: URINE SPECIMEN Ordering Facility: [facility] Address: [address] [place] [address] Performed By: #### 2 4356-8 #### [facility] CLIA [id number] [address] [place] [address] [facility] [place] Epithelial cells LM.HPF (Urine sed) [#/Area] Few Normal [facility] Comment on above: Order Comment: Speci men Type: URINE SPECIMEN Ordering Facility: [facility] Address: [address] [place] [address] Performed By: #### 2 4356-8 #### [facility] CLIA [id number] [address] [place] [address] [facility] [place] Glucose Test strip (U) [Mass/Vol] Negative Normal Negative [facility] Comment on above: Order Comment: Speci men Type: URINE SPECIMEN Ordering Facility: [facility] Address: [address] [place] [address] Performed By: #### 2 4356-8 #### [facility] CLIA [id number] [address] [place] [address] [place] Hemoglobin Ql (U) Trace Abnormal Negative [facility] Comment on above: Order Comment: Speci men Type: URINE SPECIMEN Ordering Facility: [facility] Address: [address] [place] [address] Performed By: #### 2 4356-8 #### [facility] CLIA [id number] [address] [place] [address] [place] Ketones Ql (U) Negative Normal Negative [facility] Comment on above: Order Comment: Speci men Type: URINE SPECIMEN Ordering Facility: [facility] Address: [address] [place] [address] Performed By: #### 2 4356-8 #### [facility] CLIA [id number] [address] [place] [address] [place] Leukocyte esterase Test strip Ql (U) Negative Normal Negative [facility] Comment on above: Order Comment: Speci men Type: URINE SPECIMEN Ordering Facility: [facility] Address: [address] [place] [address] Performed By: #### 2 4356-8 #### [facility] CLIA [id number] [address] [place] [address] [place] Nitrite Ql (U) Negative Normal Negative [facility] Comment on above: Order Comment: Speci men Type: URINE SPECIMEN Ordering Facility: [facility] Address: [address] [place] [address] Performed By: #### 2 4356-8 #### [facility] CLIA [id number] [address] [place] [address] [place] pH (U) 7.0 [pH] Normal 5.0-8.0 [facility] Comment on above: Order Comment: Speci men Type: URINE SPECIMEN Ordering Facility: [facility] Address: [address] [place] [address] Performed By: #### 2 4356-8 #### [facility] CLIA [id number] [address] [place] [address] [facility] Protein (U) [Mass/Vol] Negative Normal Negative [facility] Comment on above: Order Comment: Speci men Type: URINE SPECIMEN Ordering Facility: [facility] Address: [address] [place] [address] Performed By: #### 2 4356-8 #### [facility] CLIA [id number] [address] [place] [address] [place] RBC LM.HPF (Urine sed) [#/Area] 0-3 /HPF Normal 0-3 /HPF [facility] Comment on above: Order Comment: Speci men Type: URINE SPECIMEN Ordering Facility: [facility] Address: [address] [place] [address] Performed By: #### 2 4356-8 #### [facility] CLIA [id number] [address] [place] [id number] [place] Specific gravity (U) [Rel density] 1.015 Normal 1.005-1.030 [facility] Comment on above: Order Comment: Speci men Type: URINE SPECIMEN Ordering Facility: [facility] Address: [address] [place] [address] Performed By: #### 2 4356-8 #### [facility] CLIA [id number] [address] [place] [address] [facility] [place] Urobilinogen Ql (U) 1.0 EU/dL Normal 0.2-1.0 EU/dL [facility] Comment on above: Order Comment: Speci men Type: URINE SPECIMEN Ordering Facility: [facility] Address: [address] [place] [address] Performed By: #### 2 4356-8 #### [facility] CLIA [id number] [address] [place] [address] [place] WBC LM.HPF (Urine sed) [#/Area] 0-5 /HPF Normal 0-5 /HPF [facility] Comment on above: Order Comment: Speci men Type: URINE SPECIMEN Ordering Facility: [facility] Address: [address] [place] [address] Performed By: #### 2 [id number] #### [facility] CLIA [id number] [address] [place] [address] [place] C-REACTIVE PROTEIN (CRP)on 0 12-14-2022 CRP [Mass/Vol] 1.0 mg/dL High <0.9 mg/dL [facility] Absolute lymphocyte counton 07-09-2022 Lymphocytes Auto (Unsp spec) [#/Vol] 3.72 10*3/uL 0.83-4.51 [facility] Work Phone: Basophil percentageon 2022 Basophils/100 WBC (Bld) 0.7 % 0-1 [facility] Work Phone: Chloride [Moles/Vol] 109 mmol/L 98-107 [facility] Work Phone: Eosinophils/100 WBC (Bld) 5.9 % 0-5 [facility] Work Phone: Glucose [Mass/Vol] 115 mg/dL 74-106 [facility] Work Phone: Comment on above: Fasting Glucose resu lt from 100 to 125 mg/dL suggests IMPAIRED HOMEOSTASIS per A.D.A. criteria. Neutrophils (Bld) [#/Vol] 6.2 10*3/uL 2.0-7.7 [facility] Work Phone: Neutrophils/100 WBC (Bld) 55.7 % 47-70 [facility] Work Phone: Potassium [Moles/Vol] 3.8 mmol/L 3.5-5.1 [facility] Work Phone: Sodium [Moles/Vol] 140 mmol/L 136-145 [facility] Work Phone: WBC (Bld) [#/Vol] 11.1 10*3/uL 4.4-11.0 [facility] Work Phone: [phone] Beta hCG serum qualon 2022 Beta HCG ( test) Ql Negative [facility] Work Phone: [phone] Blood erythrocytes count (nu mber/volume)on 07-09-2022 RBC (Bld) [#/Vol] 4.50 10*6/uL 4.2-5.4 [facility] Work Phone: Blood hemoglobin measurement (mass/volume)on 07-09-2022 Hemoglobin (Bld) [Mass/Vol] 12.8 g/dL 12.0-15.0 [facility] Work Phone: Blood lymphocytes/100 leukoc yteson 07-09-2022 Lymphocytes/100 WBC (Bld) 33.5 % 19-41 [facility] Work Phone: [phone] Blood monocytes/100 leukocyt eson 07-09-2022 Monocytes/100 WBC (Bld) 3.9 % 0-10 [facility] Work Phone: Blood platelet mean volumeon 07-09-2022 Platelet mean volume (Bld) [Entitic vol] 8.7 fL 6.2-12.0 [facility] Work Phone: Determination of erythrocyte mean corpuscular volume (MCV)on 07-09-2022 MCV (RBC) [Entitic vol] 85.3 fL 81-99 [facility] Work Phone: [phone] Hematocrit Auto (Bld) [Volum e fraction]on 07-09-2022 Hematocrit (Bld) [Volume fraction] 38.4 % 37-47 [facility] Work Phone: Laboratory - Chemistry and C hemistry - challengeon 07-09-2022 CO2 [Moles/Vol] 26.0 mmol/L 21.0-32.0 [facility] Work Phone: [phone] Magnesium [Mass/Vol] 2.0 mg/dL 1.6-2.6 [facility] Work Phone: [phone] Urea nitrogen/Creatinine [Mass ratio] 18.3 mg/mg 10-20 [facility] Work Phone: [phone] Laboratory - Hematology and Cell countson 07-09-2022 Erythrocyte distribution width (RBC) [Entitic vol] 40.7 fL 35.1-43.9 [facility] Work Phone: [phone] Erythrocyte distribution width (RBC) [Ratio] 13.2 % 11.6-14.6 [facility] Work Phone: [phone] Immature granulocytes/100 WBC (Bld) 0.300 % 0.0-0.9 [facility] Work Phone: [phone] Comment on above: IG% - Immature Granu locytes (promyelocytes, myelocytes and metamyelocytes) > 1% indicates that a LEFT SHIFT is Present. MCH (RBC) [Entitic mass] 28.4 pg 27.0-32.0 [facility] Work Phone: [phone] Nucleated RBC/100 WBC (Bld) [Ratio] 0 % 0-5 [facility] Work Phone: [phone] MCHC Auto (RBC) [Mass/Vol]on 07-09-2022 MCHC (RBC) [Mass/Vol] 33.3 g/dL 32-36 [facility] Work Phone: [phone] Panel Informationon 07-09 D-Dimer Quantitative (PE/DVT) 0.49 FEU/ug/m 0.27-0.49 [facility] Work Phone: [phone] Comment on above: NORMAL D-Dimer level (<0.50) indicates no DVT or PE. Estimated Creatinine Clearance Calc 113.41 ml/min [facility] Work Phone: [phone] Estimated GFR (MDRD) Amer 149 mL/min >60 [facility] Work Phone: [phone] Comment on above: GFR Calc Estimated GFR (MDRD) Non-Af Amer 123 mL/min >60 [facility] Work Phone: [phone] Comment on above: Non- GFR Calc Thyroid Stimulating Hormone (TSH) 5.14 uIU/mL 0.358-3.74 [facility] Work Phone: Platelets bldon 07-09-2022 Platelets (Bld) [#/Vol] 342 10*3/uL 150-450 [facility] Work Phone: Serum or plasma calcium jami urement (mass/volume)on 07-09-2022 Calcium [Mass/Vol] 8.5 mg/dL 8.5-10.1 [facility] Work Phone: Serum or plasma creatinine m easurement (mass/volume)on 07-09-2022 Creatinine [Mass/Vol] 0.66 mg/dL 0.55-1.02 [facility] Work Phone: Comment on above: The validity of the calculated GFR & GFRAA in patients over 70 years has not been determined. Clinical correlation is essential. Serum or plasma urea nitroge n measurement (mass/volume)on 07-09-2022 Urea nitrogen [Mass/Vol] 12 mg/dL 7-18 [facility] Work Phone: Thin prep Papanicolaou smear with manual screeningon 07-09-2022 Thin prep Papanicolaou smear with manual screening 5 5-15 [facility] Work Phone: XR WRIST GENERAL 3V PA/LAT/O BL RIGHTon 05-14-2022 [facility] XR Wrist - right PA and Late ral and Obliqueon 05-14-2022 IMPRESSION: No acute radiographic abnormalities seen in the right wrist. Interrelated Special Education Teacher: VIOLETTA Transcribe Date/Time: May 14 2022 5:02P Dictated by : ERICA HOWARD MD This examination was interpreted and the report reviewed and electronically signed by: ERICA HOWARD MD on May 14 2022 5:04PM [facility] DIVISION OF RADIOLOGY * * *Final [...] soft tissue swelling. DIVISION OF RADIOLOGY Provider, [facility] - 05/14/2022 * * *Final Report* [...] radiographic abnormalities seen in the right wrist. Interrelated Special Education Teacher: PSCB Transcribe Date/Time: May 14 2022 5:02P Dictated by : ERICA HOWARD MD This examination was interpreted and the report reviewed and electronically signed by: ERICA HOWARD MD on May 14 2022 5:04PM EST [facility] Radiology Study observation (narrative) [facility] XR Wrist - right PA and Late ral and ObliqueOrdered By: Ccf Provider on 05-14-2022 [facility] Absolute lymphocyte counton 04-09-2022 Lymphocytes Auto (Unsp spec) [#/Vol] 3.84 10*3/uL 0.83-4.51 [facility] Work Phone: Basophil percentageon 2021 Basophil percentage 0 SEEN /hpf 0-5 [facility] Work Phone: Basophils/100 WBC (Bld) 0.6 % 0-1 [facility] Work Phone: Bilirubin [Mass/Vol] 0.50 mg/dL 0.20-1.00 [facility] Work Phone: Comment on above: For patients on eltr ombopag therapy, use of Dimension [place] TBIL is not recommended. Chloride [Moles/Vol] 108 mmol/L 98-107 [facility] Work Phone: Eosinophils/100 WBC (Bld) 3.1 % 0-5 [facility] Work Phone: Glucose [Mass/Vol] 104 mg/dL 74-106 [facility] Work Phone: Comment on above: Fasting Glucose resu lt from 100 to 125 mg/dL suggests IMPAIRED HOMEOSTASIS per A.D.A. criteria. Neutrophils (Bld) [#/Vol] 5.0 10*3/uL 2.0-7.7 [facility] Work Phone: Neutrophils/100 WBC (Bld) 51.4 % 47-70 [facility] Work Phone: Potassium [Moles/Vol] 3.6 mmol/L 3.5-5.1 [facility] Work Phone: Protein [Mass/Vol] 6.8 g/dL 6.4-8.2 [facility] Work Phone: Sodium [Moles/Vol] 140 mmol/L 136-145 [facility] Work Phone: WBC (Bld) [#/Vol] 9.7 10*3/uL 4.4-11.0 [facility] Work Phone: Bilirubin Test strip Ql (U)o n 04-09-2022 Bilirubin Ql (U) Negative Negative [facility] Work Phone: Blood erythrocytes count (nu mber/volume)on 04-09-2022 RBC (Bld) [#/Vol] 4.53 10*6/uL 4.2-5.4 [facility] Work Phone: Blood hemoglobin measurement (mass/volume)on 04-09-2022 Hemoglobin (Bld) [Mass/Vol] 13.2 g/dL 12.0-15.0 [facility] Work Phone: Blood lymphocytes/100 leukoc yteson 04-09-2022 Lymphocytes/100 WBC (Bld) 39.5 % 19-41 [facility] Work Phone: [phone] Blood monocytes/100 leukocyt eson 04-09-2022 Monocytes/100 WBC (Bld) 5.2 % 0-10 [facility] Work Phone: [phone] Blood platelet mean volumeon 04-09-2022 Platelet mean volume (Bld) [Entitic vol] 8.8 fL 6.2-12.0 [facility] Work Phone: Determination of erythrocyte mean corpuscular volume (MCV)on 04-09-2022 MCV (RBC) [Entitic vol] 87.4 fL 81-99 [facility] Work Phone: Direct bilirubinon Bilirubin.direct [Mass/Vol] 0.13 mg/dL 0.00-0.30 [facility] Work Phone: [phone] Hematocrit Auto (Bld) [Volum e fraction]on 04-09-2022 Hematocrit (Bld) [Volume fraction] 39.6 % 37-47 [facility] Work Phone: Ketones Test strip Ql (U)on 04-09-2022 Ketones Ql (U) Negative Negative [facility] Work Phone: [phone] Laboratory - Chemistry and C hemistry - challengeon 04-09-2022 HCG ( test) Ql (U) Negative [facility] Work Phone: [phone] Comment on above: Very dilute urine sp ecimens, as indicated by a low specificgravity, may not contain labor relations representative levels of hCG. If is still suspected, a first morning urinespecimen should be collected 48 hours later and tested. ALP [Catalytic activity/Vol] 104 U/L 45-117 [facility] Work Phone: ALT [Catalytic activity/Vol] 19 U/L 13-56 [facility] Work Phone: [phone] CO2 [Moles/Vol] 24.0 mmol/L 21.0-32.0 [facility] Work Phone: [phone] Globulin (S) [Mass/Vol] 3.3 g/dL 2.2-4.2 [facility] Work Phone: [phone] Lipase [Catalytic activity/Vol] 100 U/L 73-393 [facility] Work Phone: [phone] Urea nitrogen/Creatinine [Mass ratio] 14.3 mg/mg 10-20 [facility] Work Phone: [phone] Laboratory - Hematology and Cell countson 04-09-2022 Erythrocyte distribution width (RBC) [Entitic vol] 41.9 fL 35.1-43.9 [facility] Work Phone: [phone] Erythrocyte distribution width (RBC) [Ratio] 13.2 % 11.6-14.6 [facility] Work Phone: [phone] Immature granulocytes/100 WBC (Bld) 0.200 % 0.0-0.9 [facility] Work Phone: [phone] Comment on above: IG% - Immature Granu locytes (promyelocytes, myelocytes and metamyelocytes) > 1% indicates that a LEFT SHIFT is Present. MCH (RBC) [Entitic mass] 29.1 pg 27.0-32.0 [facility] Work Phone: Nucleated RBC/100 WBC (Bld) [Ratio] 0 % 0-5 [facility] Work Phone: [phone] MCHC Auto (RBC) [Mass/Vol]on 04-09-2022 MCHC (RBC) [Mass/Vol] 33.3 g/dL 32-36 [facility] Work Phone: [phone] Mucus LM Ql (Urine sed)on Mucus Ql (Urine sed) 0 SEEN /hpf [facility] Work Phone: [phone] Nitrite Test strip Ql (U)on 04-09-2022 Nitrite Ql (U) Negative Negative [facility] Work Phone: [phone] Panel Informationon 04-09 Estimated Creatinine Clearance Calc 97.21 ml/min [facility] Work Phone: Estimated GFR (MDRD) Amer 124 mL/min >60 [facility] Work Phone: Comment on above: GFR Calc Estimated GFR (MDRD) Non-Af Amer 102 mL/min >60 [facility] Work Phone: Comment on above: Non- GFR Calc Platelets bldon 04-09-2022 Platelets (Bld) [#/Vol] 294 10*3/uL 150-450 [facility] Work Phone: Protein Test strip Ql (U)on 04-09-2022 Protein Ql (U) Negative Negative [facility] Work Phone: Serum or plasma albumin jami urement (mass/volume)on 04-09-2022 Albumin [Mass/Vol] 3.5 g/dL 3.2-5.0 [facility] Work Phone: Serum or plasma calcium jami urement (mass/volume)on 04-09-2022 Calcium [Mass/Vol] 9.0 mg/dL 8.5-10.1 [facility] Work Phone: Serum or plasma creatinine m easurement (mass/volume)on 04-09-2022 Creatinine [Mass/Vol] 0.77 mg/dL 0.55-1.02 [facility] Work Phone: Comment on above: The validity of the calculated GFR & GFRAA in patients over 70 years has not been determined. Clinical correlation is essential. Serum or plasma urea nitroge n measurement (mass/volume)on 04-09-2022 Urea nitrogen [Mass/Vol] 11 mg/dL 7-18 [facility] Work Phone: [phone] Squamous epithelial cells de tection in urine sediment by light microscopyon 04-09-2022 Epithelial cells.squamous LM Ql (Urine sed) 0-5 SEEN /hpf 5-10 [facility] Work Phone: Thin prep Papanicolaou smear with manual screeningon 04-09-2022 Thin prep Papanicolaou smear with manual screening 20 U/L 15-37 [facility] Work Phone: Thin prep Papanicolaou smear with manual screening 8 5-15 [facility] Work Phone: Urine blood detectionon 03-24 RBC Ql (U) Negative Negative [facility] Work Phone: RBC Ql (U) 0 SEEN /hpf 0-5 [facility] Work Phone: Urine clarityon 04-09-2022 Clarity (U) Clear Clear [facility] Work Phone: Urine color determinationon 04-09-2022 Color (U) Yellow Yellow [facility] Work Phone: Urine glucose detectionon Glucose Ql (U) Normal mg/dl Normal [facility] Work Phone: Urine leukocyte esterase det ection by dipstickon 04-09-2022 Leukocyte esterase Test strip Ql (U) Negative Negative [facility] Work Phone: Urine pHon 04-09-2022 pH (U) 6.0 [pH] 5.0 - 8.0 [facility] Work Phone: Urine sediment bacteria coun t by microscopy (number/high power field)on 04-09-2022 Bacteria LM.HPF (Urine sed) [#/Area] RARE /hpf None Seen [facility] Work Phone: Urine specific gravity measu rementon 04-09-2022 Specific gravity (U) [Rel density] 1.020 1.002-1.030 [facility] Work Phone: Urobilinogen Auto test strip Ql (U)on 04-09-2022 Urobilinogen Ql (U) Normal mg/dl Normal [facility] Work Phone: Absolute lymphocyte counton 12-12-2021 Lymphocytes Auto (Unsp spec) [#/Vol] 1.35 10*3/uL 0.83-4.51 [facility] Work Phone: Basophil percentageon 2021 Basophils/100 WBC (Bld) 0.1 % 0-1 [facility] Work Phone: Bilirubin [Mass/Vol] 1.60 mg/dL 0.20-1.00 [facility] Work Phone: Comment on above: For patients on eltr ombopag therapy, use of Dimension [place] TBIL is not recommended. Chloride [Moles/Vol] 108 mmol/L 98-107 [facility] Work Phone: Eosinophils/100 WBC (Bld) 1.6 % 0-3 [facility] Work Phone: Glucose [Mass/Vol] 97 mg/dL 74-106 [facility] Work Phone: Neutrophils (Bld) [#/Vol] 7.3 10*3/uL 2.0-7.7 [facility] Work Phone: Neutrophils/100 WBC (Bld) 79.5 % 34-64 [facility] Work Phone: Potassium [Moles/Vol] 3.9 mmol/L 3.5-5.1 [facility] Work Phone: Protein [Mass/Vol] 7.2 g/dL 6.4-8.2 [facility] Work Phone: Sodium [Moles/Vol] 139 mmol/L 136-145 [facility] Work Phone: WBC (Bld) [#/Vol] 9.2 10*3/uL 4.5-13.0 [facility] Work Phone: Basophil percentage 0 SEEN /hpf 0-5 [facility] Work Phone: Beta hCG serum qualon 2021 Beta HCG ( test) Ql Negative [facility] Work Phone: Bilirubin Test strip Ql (U)o n 12-12-2021 Bilirubin Ql (U) Negative Negative [facility] Work Phone: Blood erythrocytes count (nu mber/volume)on 06-21-2022 RBC (Bld) [#/Vol] 4.87 10*6/uL 4.1-4.8 [facility] Work Phone: Blood hemoglobin measurement (mass/volume)on 12-12-2021 Hemoglobin (Bld) [Mass/Vol] 14.3 g/dL 12.0-15.0 [facility] Work Phone: Blood lymphocytes/100 leukoc yteson 12-12-2021 Lymphocytes/100 WBC (Bld) 14.7 % 25-45 [facility] Work Phone: Blood monocytes/100 leukocyt eson 12-12-2021 Monocytes/100 WBC (Bld) 3.7 % 3-6 [facility] Work Phone: Blood platelet mean volumeon 12-12-2021 Platelet mean volume (Bld) [Entitic vol] 9.1 fL 6.2-12.0 [facility] Work Phone: [phone] Determination of erythrocyte mean corpuscular volume (MCV)on 12-12-2021 MCV (RBC) [Entitic vol] 84.0 fL 78-96 [facility] Work Phone: Hematocrit Auto (Bld) [Volum e fraction]on 12-12-2021 Hematocrit (Bld) [Volume fraction] 40.9 % 37-46 [facility] Work Phone: Ketones Test strip Ql (U)on 12-12-2021 Ketones Ql (U) Negative Negative [facility] Work Phone: [phone] Laboratory - Chemistry and C hemistry - challengeon 12-12-2021 ALP [Catalytic activity/Vol] 82 U/L 47-119 [facility] Work Phone: ALT [Catalytic activity/Vol] 21 U/L 13-56 [facility] Work Phone: CO2 [Moles/Vol] 24.0 mmol/L 21.0-32.0 [facility] Work Phone: [phone] Globulin (S) [Mass/Vol] 3.5 g/dL 2.2-4.2 [facility] Work Phone: [phone] Lipase [Catalytic activity/Vol] 92 U/L 73-393 [facility] Work Phone: [phone] Urea nitrogen/Creatinine [Mass ratio] 21.9 mg/mg 10-20 [facility] Work Phone: [phone] Laboratory - Hematology and Cell countson 12-12-2021 Erythrocyte distribution width (RBC) [Entitic vol] 39.3 fL 35.1-43.9 [facility] Work Phone: [phone] Erythrocyte distribution width (RBC) [Ratio] 13.0 % 11.6-14.6 [facility] Work Phone: [phone] Immature granulocytes/100 WBC (Bld) 0.400 % 0.0-0.9 [facility] Work Phone: [phone] Comment on above: IG% - Immature Granu locytes (promyelocytes, myelocytes and metamyelocytes) > 1% indicates that a LEFT SHIFT is Present. MCH (RBC) [Entitic mass] 29.4 pg 25.0-35.0 [facility] Work Phone: [phone] Nucleated RBC/100 WBC (Bld) [Ratio] 0 % 0-5 [facility] Work Phone: [phone] MCHC Auto (RBC) [Mass/Vol]on 12-12-2021 MCHC (RBC) [Mass/Vol] 35.0 g/dL 32-36 [facility] Work Phone: [phone] Mucus LM Ql (Urine sed)on Mucus Ql (Urine sed) 0 SEEN /hpf [facility] Work Phone: [phone] Nitrite Test strip Ql (U)on 12-12-2021 Nitrite Ql (U) Negative Negative [facility] Work Phone: [phone] Panel Informationon 12-12 Estimated Creatinine Clearance Calc 117.92 ml/min [facility] Work Phone: [phone] Estimated GFR (MDRD) Amer 155 mL/min >60 [facility] Work Phone: [phone] Comment on above: GFR Calc Estimated GFR (MDRD) Non-Af Amer 128 mL/min >60 [facility] Work Phone: Comment on above: Non- GFR Calc Platelets bldon 12-12-2021 Platelets (Bld) [#/Vol] 227 10*3/uL 150-450 [facility] Work Phone: Protein Test strip Ql (U)on 12-12-2021 Protein Ql (U) Negative Negative [facility] Work Phone: Serum or plasma albumin jami urement (mass/volume)on 12-12-2021 Albumin [Mass/Vol] 3.7 g/dL 3.2-5.0 [facility] Work Phone: Serum or plasma albumin/glob ulin mass ratioon 12-12-2021 Albumin/Globulin [Mass ratio] 1.1 {ratio} 0.9-2.4 [facility] Work Phone: Serum or plasma calcium jami urement (mass/volume)on 12-12-2021 Calcium [Mass/Vol] 8.7 mg/dL 8.5-10.1 [facility] Work Phone: Serum or plasma creatinine m easurement (mass/volume)on 12-12-2021 Creatinine [Mass/Vol] 0.64 mg/dL 0.55-1.02 [facility] Work Phone: Comment on above: The validity of the calculated GFR & GFRAA in patients over 70 years has not been determined. Clinical correlation is essential. Serum or plasma urea nitroge n measurement (mass/volume)on 12-12-2021 Urea nitrogen [Mass/Vol] 14 mg/dL 7-18 [facility] Work Phone: Squamous epithelial cells de tection in urine sediment by light microscopyon 12-12-2021 Epithelial cells.squamous LM Ql (Urine sed) 0-5 SEEN /hpf 5-10 [facility] Work Phone: Thin prep Papanicolaou smear with manual screeningon 12-12-2021 Thin prep Papanicolaou smear with manual screening 19 U/L 15-37 [facility] Work Phone: Thin prep Papanicolaou smear with manual screening 7 5-15 [facility] Work Phone: Urine blood detectionon - RBC Ql (U) Negative Negative [facility] Work Phone: RBC Ql (U) 0 SEEN /hpf 0-5 [facility] Work Phone: Urine clarityon 12-12-2021 Clarity (U) Sl. Cloudy Clear [facility] Work Phone: Urine color determinationon 12-12-2021 Color (U) Yellow Yellow [facility] Work Phone: Urine glucose detectionon Glucose Ql (U) Normal mg/dl Normal [facility] Work Phone: Urine leukocyte esterase det ection by dipstickon 12-12-2021 Leukocyte esterase Test strip Ql (U) Negative Negative [facility] Work Phone: Urine pHon 12-12-2021 pH (U) 8.0 [pH] 5.0 - 8.0 [facility] Work Phone: Urine sediment bacteria coun t by microscopy (number/high power field)on 12-12-2021 Bacteria LM.HPF (Urine sed) [#/Area] 1 /[HPF] None Seen [facility] Work Phone: Urine specific gravity measu rementon 12-12-2021 Specific gravity (U) [Rel density] 1.015 1.002-1.030 [facility] Work Phone: Urobilinogen Auto test strip Ql (U)on 12-12-2021 Urobilinogen Ql (U) Normal mg/dl Normal [facility] Work Phone: Absolute lymphocyte counton 10-01-2021 Lymphocytes Auto (Unsp spec) [#/Vol] 3.00 10*3/uL 0.83-4.51 [facility] Work Phone: Basophil percentageon 2021 Basophils/100 WBC (Bld) 0.5 % 0-1 [facility] Work Phone: Bilirubin [Mass/Vol] 0.80 mg/dL 0.20-1.00 [facility] Work Phone: Comment on above: For patients on eltr ombopag therapy, use of Dimension [place] TBIL is not recommended. Chloride [Moles/Vol] 107 mmol/L 98-107 [facility] Work Phone: Eosinophils/100 WBC (Bld) 1.4 % 0-3 [facility] Work Phone: Glucose [Mass/Vol] 120 mg/dL 74-106 [facility] Work Phone: Comment on above: Fasting Glucose resu lt from 100 to 125 mg/dL suggests IMPAIRED HOMEOSTASIS per A.D.A. criteria. Neutrophils (Bld) [#/Vol] 7.8 10*3/uL 2.0-7.7 [facility] Work Phone: Neutrophils/100 WBC (Bld) 68.2 % 34-64 [facility] Work Phone: Potassium [Moles/Vol] 3.9 mmol/L 3.5-5.1 [facility] Work Phone: Protein [Mass/Vol] 6.9 g/dL 6.4-8.2 [facility] Work Phone: Sodium [Moles/Vol] 138 mmol/L 136-145 [facility] Work Phone: WBC (Bld) [#/Vol] 11.5 10*3/uL 4.5-13.0 [facility] Work Phone: Basophil percentage 0-5 SEEN /hpf 0-5 [facility] Work Phone: Bilirubin Test strip Ql (U)o n 10-01-2021 Bilirubin Ql (U) Negative Negative [facility] Work Phone: Blood erythrocytes count (nu mber/volume)on 10-01-2021 RBC (Bld) [#/Vol] 4.46 10*6/uL 4.1-4.8 [facility] Work Phone: Blood hemoglobin measurement (mass/volume)on 10-01-2021 Hemoglobin (Bld) [Mass/Vol] 13.3 g/dL 12.0-15.0 [facility] Work Phone: Blood lymphocytes/100 leukoc yteson 10-01-2021 Lymphocytes/100 WBC (Bld) 26.1 % 25-45 [facility] Work Phone: [phone] Blood monocytes/100 leukocyt eson 10-01-2021 Monocytes/100 WBC (Bld) 3.3 % 3-6 [facility] Work Phone: Blood platelet mean volumeon 10-01-2021 Platelet mean volume (Bld) [Entitic vol] 9.1 fL 6.2-12.0 [facility] Work Phone: Culture, urineon 10-01-2021 Bacteria identified Cx Nom (U) Positive [facility] Work Phone: Determination of erythrocyte mean corpuscular volume (MCV)on 10-01-2021 MCV (RBC) [Entitic vol] 87.4 fL 78-96 [facility] Work Phone: Direct bilirubinon 2 Bilirubin.direct [Mass/Vol] 0.22 mg/dL 0.00-0.30 [facility] Work Phone: Hematocrit Auto (Bld) [Volum e fraction]on 10-01-2021 Hematocrit (Bld) [Volume fraction] 39.0 % 37-46 [facility] Work Phone: Ketones Test strip Ql (U)on 10-01-2021 Ketones Ql (U) Negative Negative [facility] Work Phone: Laboratory - Chemistry and C hemistry - challengeon 10-01-2021 ALP [Catalytic activity/Vol] 93 U/L 47-119 [facility] Work Phone: ALT [Catalytic activity/Vol] 38 U/L 13-56 [facility] Work Phone: [phone] CO2 [Moles/Vol] 27.0 mmol/L 21.0-32.0 [facility] Work Phone: [phone] Globulin (S) [Mass/Vol] 3.3 g/dL 2.2-4.2 [facility] Work Phone: [phone] Lipase [Catalytic activity/Vol] 58 U/L 73-393 [facility] Work Phone: [phone] Urea nitrogen/Creatinine [Mass ratio] 14.9 mg/mg 10-20 [facility] Work Phone: [phone] HCG ( test) Ql (U) Negative [facility] Work Phone: [phone] Comment on above: Very dilute urine sp ecimens, as indicated by a low specificgravity, may not contain labor relations representative levels of hCG. If is still suspected, a first morning urinespecimen should be collected 48 hours later and tested. Laboratory - Hematology and Cell countson 10-01-2021 Erythrocyte distribution width (RBC) [Entitic vol] 39.4 fL 35.1-43.9 [facility] Work Phone: [phone] Erythrocyte distribution width (RBC) [Ratio] 12.2 % 11.6-14.6 [facility] Work Phone: [phone] Immature granulocytes/100 WBC (Bld) 0.500 % 0.0-0.9 [facility] Work Phone: [phone] Comment on above: IG% - Immature Granu locytes (promyelocytes, myelocytes and metamyelocytes) > 1% indicates that a LEFT SHIFT is Present. MCH (RBC) [Entitic mass] 29.8 pg 25.0-35.0 [facility] Work Phone: [phone] Nucleated RBC/100 WBC (Bld) [Ratio] 0 % 0-5 [facility] Work Phone: [phone] MCHC Auto (RBC) [Mass/Vol]on 10-01-2021 MCHC (RBC) [Mass/Vol] 34.1 g/dL 32-36 [facility] Work Phone: Mucus LM Ql (Urine sed)on Mucus Ql (Urine sed) 0 SEEN /hpf [facility] Work Phone: [phone] Nitrite Test strip Ql (U)on 10-01-2021 Nitrite Ql (U) Negative Negative [facility] Work Phone: No Panel Informationon 10-01 Estimated Creatinine Clearance Calc 74.72 ml/min [facility] Work Phone: [phone] Estimated GFR (MDRD) Amer 91 mL/min >60 [facility] Work Phone: Comment on above: GFR Calc Estimated GFR (MDRD) Non-Af Amer 75 mL/min >60 [facility] Work Phone: Comment on above: Non- GFR Calc Platelets bldon 10-01-2021 Platelets (Bld) [#/Vol] 298 10*3/uL 150-450 [facility] Work Phone: Protein Test strip Ql (U)on 10-01-2021 Protein Ql (U) 30 mg/dl Negative [facility] Work Phone: Serum or plasma albumin jami urement (mass/volume)on 10-01-2021 Albumin [Mass/Vol] 3.6 g/dL 3.2-5.0 [facility] Work Phone: [phone] Serum or plasma calcium jami urement (mass/volume)on 10-01-2021 Calcium [Mass/Vol] 8.7 mg/dL 8.5-10.1 [facility] Work Phone: Serum or plasma creatinine m easurement (mass/volume)on 10-01-2021 Creatinine [Mass/Vol] 1.01 mg/dL 0.55-1.02 [facility] Work Phone: Comment on above: The validity of the calculated GFR & GFRAA in patients over 70 years has not been determined. Clinical correlation is essential. Serum or plasma urea nitroge n measurement (mass/volume)on 10-01-2021 Urea nitrogen [Mass/Vol] 15 mg/dL 7-18 [facility] Work Phone: Squamous epithelial cells de tection in urine sediment by light microscopyon 10-01-2021 Epithelial cells.squamous LM Ql (Urine sed) 0-5 SEEN /hpf 5-10 [facility] Work Phone: Thin prep Papanicolaou smear with manual screeningon 10-01-2021 Thin prep Papanicolaou smear with manual screening 22 U/L 15-37 [facility] Work Phone: [phone] Thin prep Papanicolaou smear with manual screening 4 5-15 [facility] Work Phone: Urine blood detectionon 09-22 RBC Ql (U) 25 /ul Negative [facility] Work Phone: RBC Ql (U) 0 SEEN /hpf 0-5 [facility] Work Phone: Urine clarityon 10-01-2021 Clarity (U) Clear Clear [facility] Work Phone: Urine color determinationon 10-01-2021 Color (U) Yellow Yellow [facility] Work Phone: Urine glucose detectionon Glucose Ql (U) Normal mg/dl Normal [facility] Work Phone: Urine leukocyte esterase det ection by dipstickon 10-01-2021 Leukocyte esterase Test strip Ql (U) 25 /ul Negative [facility] Work Phone: Urine pHon 10-01-2021 pH (U) 7.0 [pH] 5.0 - 8.0 [facility] Work Phone: Urine sediment bacteria coun t by microscopy (number/high power field)on 10-01-2021 Bacteria LM.HPF (Urine sed) [#/Area] 2 /[HPF] None Seen [facility] Work Phone: Urine specific gravity measu rementon 10-01-2021 Specific gravity (U) [Rel density] 1.015 1.002-1.030 [facility] Work Phone: Urobilinogen Auto test strip Ql (U)on 10-01-2021 Urobilinogen Ql (U) 4 mg/dl Normal [facility] Work Phone: Complete Blood Counton 03-18 Differential Complete Automated Normal [facility] Comment on above: Order Comment: Is th is specimen being sent to an external lab?->No Performed By: #### C BC ####[address] [phone] % Neutrophils 56.2 % Normal 34.0-64.0 [facility] Comment on above: Order Comment: Is th is specimen being sent to an external lab?->No Performed By: #### C BC ####[address] [phone] Basophils/100 WBC Auto (Bld) 0.60 % Normal 0.00-1.00 [facility] Comment on above: Order Comment: Is th is specimen being sent to an external lab?->No Performed By: #### C BC ####[address] [phone] Eosinophils/100 WBC Auto (Bld) 8.60 % High 0.00-3.00 [facility] Comment on above: Order Comment: Is th is specimen being sent to an external lab?->No Performed By: #### C BC ####[address] [phone] Erythrocyte distribution width Auto Ratio (RBC) 13.1 % Normal 0.0-14.4 [facility] Comment on above: Order Comment: Is th is specimen being sent to an external lab?->No Performed By: #### C BC ####[address] [phone] Hematocrit Auto Volume Fraction (Bld) 41.8 % Normal 37.0-46.0 [facility] Comment on above: Order Comment: Is th is specimen being sent to an external lab?->No Performed By: #### C BC ####[address] [phone] Hemoglobin mass conc (Bld) 14.2 g/dL Normal 12.0-15.0 [facility] Comment on above: Order Comment: Is th is specimen being sent to an external lab?->No Performed By: #### C BC ####[address] [phone] Immature granulocytes/100 WBC (Bld) 0.20 % Normal [facility] Comment on above: Order Comment: Is th is specimen being sent to an external lab?->No Result Comment: Sheryl ture Granulocyte Percent includes promyelocytes, myelocytes,and metamyelocytes. IG% > 1.0 indicates a left shift ispresent. With automated differentials, bands are includedin the neutrophil count and not in the Immature GranulocytePercent. Performed By: #### C BC ####[address] [phone] Lymphocytes/100 WBC Auto (Bld) 31.3 % Normal 25.0-45.0 [facility] Comment on above: Order Comment: Is th is specimen being sent to an external lab?->No Performed By: #### C BC ####[address] [phone] MCH Auto Entitic mass (RBC) 28.0 pg Normal 25.0-35.0 [facility] Comment on above: Order Comment: Is th is specimen being sent to an external lab?->No Performed By: #### C BC ####[address] [phone] MCHC Auto mass conc (RBC) 34.0 % Normal 31.0-37.0 [facility] Comment on above: Order Comment: Is th is specimen being sent to an external lab?->No Performed By: #### C BC ####[address] [phone] MCV Auto Entitic volume (RBC) 82.4 fL Normal 78.0-96.0 [facility] Comment on above: Order Comment: Is th is specimen being sent to an external lab?->No Performed By: #### C BC ####[address] [phone] Monocytes/100 WBC Auto (Bld) 3.10 % Normal 3.00-6.00 [facility] Comment on above: Order Comment: Is th is specimen being sent to an external lab?->No Performed By: #### C BC ####[address] [phone] Neutrophils Auto #/vol (Bld) 5.3 Normal [facility] Comment on above: Order Comment: Is th is specimen being sent to an external lab?->No Performed By: #### C BC ####[address] [phone] Nucleated RBC/100 WBC Ratio (Bld) 0.0 % Normal -1.0-0.0 [facility] Comment on above: Order Comment: Is th is specimen being sent to an external lab?->No Performed By: #### C BC ####[address] [phone] Platelet mean volume Auto Entitic volume (Bld) 9.7 fL Normal [facility] Comment on above: Order Comment: Is th is specimen being sent to an external lab?->No Result Comment: MPV is plateletrange and agedependent Performed By: #### C BC ####[address] [phone] Platelets Auto #/vol (Bld) 288 10*3/uL Normal 150-450 [facility] Comment on above: Order Comment: Is th is specimen being sent to an external lab?->No Performed By: #### C BC ####[address] [phone] RBC Auto #/vol (Bld) 5.07 10E12/L High 4.10-4.80 [facility] Comment on above: Order Comment: Is th is specimen being sent to an external lab?->No Performed By: #### C BC ####[address] [phone] WBC Auto #/vol (Bld) 9.5 10*3/uL Normal 4.5-13.0 [facility] Comment on above: Order Comment: Is th is specimen being sent to an external lab?->No Performed By: #### C BC ####[address] [phone] Lipid Panelon 03-18-2018 Cholesterol in HDL mass conc 49 mg/dL Normal [facility] Comment on above: Order Comment: Is th is specimen being sent to an external lab?->No Result Comment: Male < 40mg/dL High RiskFemale < 50mg/dL High RiskMale & Female > 60mg/dL Low Risk Performed By: #### L IPID ####[address] [id number] Cholesterol in LDL mass conc 71 mg/dl Normal 0-129 [facility] Comment on above: Order Comment: Is th is specimen being sent to an external lab?->No Result Comment: Chula rable <130 mg/dLBorderline 130-159 mg/dLHigh Risk >159 mg/dl Performed By: #### L IPID ####[address] [phone] Cholesterol in VLDL mass conc 21 mg/dL Normal [facility] Comment on above: Order Comment: Is th is specimen being sent to an external lab?->No Performed By: #### L IPID ####[facility] [place] [place], [place] [phone] Cholesterol mass conc 141 mg/dL Normal 0-199 [facility] Comment on above: Order Comment: Is th is specimen being sent to an external lab?->No Result Comment: Chula rable <200 mg/dLBorderline 200-239 mg/dLHigh Risk >239 mg/dL Performed By: #### L IPID ####[address] [id number] Triglyceride mass conc 106 mg/dL Normal [facility] Comment on above: Order Comment: Is th is specimen being sent to an external lab?->No Result Comment: Norm al <150 mg/dlBorderline 150-199 mg/dlHigh 200-500 mg/dlVery High >500 mg/dlResult invalid if not a fasting specimen. Performed By: #### L IPID ####[address] [id number] T4,Freeon 03-18-2018 T4 free mass conc 1.3 ng/dL Normal 0.8-1.4 [facility] Comment on above: Order Comment: Is th is specimen being sent to an external lab?->No Result Comment: New Reference Ranges - effective 04/13/09. Performed By: #### T 4FR ####[address] [phone] TSHon 03-18-2018 Thyrotropin Qn 3.766 uIU/mL Normal 0.350-5.500 [facility] Comment on above: Order Comment: Is th is specimen being sent to an external lab?->No Performed By: #### T SH ####[address] [phone] Progress Noteon 03-17-2018 Subassembly Assembler Authentication Interface Message Text Alina Malik is a 13 y.o. female patient.Behavioral/Emot ional Assessment w Score - PHQ-9Performed by: DEANN MANUEL AAuthorized by: DEANN MANUEL ASebabar scanned document.PHQ-9See PHQ9 FlowsheetFeeling down, depressed, irritable [...] completed?: YesElectronically signed by: Deann Manuel MD [facility] Subassembly Assembler Authentication Interface Message Text Patient ID: Alina Malik is a 13 y.o. female. Her chief complaint(s)include: 13 YEAR WELL CHILD and Thyroid ProblemAssessment1. Encounter for routine child health examination without abnormal findings2. Abnormal weight gain3. Overweight4. Fatigue, unspecified type5. Seasonal allergic rhinitis due to pollen6. Exercise counseling7. Encounter for dietary counseling and surveillance8. Need for vaccination9. Mild depressionLorena was seen today for 13 year well [...] fluticasone (FLONASE) 50 MCG/ACT nasal spray; 1 Silex by Each Nare routedailyExercise counselingEncounter for dietary [...] the patient's vision.Patient is being seen by trapper bird or software applications developer.Hyperlipide billy Concerns:Negative Hyperlipidemia Screen Concerns: no parent or grandparent with [place] anginaperipheral or cerebrovascular disease <55 years and [...] height 159.4 cm, weight (!)99 kg. Normal [facility] Culture, urine Bacteria identified Cx Nom (U) Positive [facility] Work Phone: Vital Signs Date Time Vital Sign Value Performing Clinician Facility 07-27-2024 04:39-0500 Body temperature 96.98 [degF] [facility] [employer] [facility] 07-27-2024 04:39-0500 Diastolic Blood Pressure Non-Invasive 79 mm[Hg] [facility] 07-27-2024 04:39-0500 Heart rate 109 /min [facility] [employer] [facility] 07-27-2024 04:39-0500 Respiratory rate 18 /min [facility] [employer] [facility] 07-27-2024 04:39-0500 Systolic Blood Pressure Non-Invasive 144 mm[Hg] ANDREA CARTER DO [facility] 07-10-2024 10:05-0500 Body mass index (BMI) [Ratio] 51.96 kg/m2 Joe Christiansen MD Work Phone: [facility] 07-10-2024 10:05-0500 Body temperature 98.8 [degF] Joe Christiansen MD Work Phone: [facility] 07-10-2024 10:05-0500 Body weight 137.3 kg Joe Christiansen MD Work Phone: [facility] 07-10-2024 10:05-0500 Diastolic blood pressure 93 mm[Hg] Joe Christiansen MD Work Phone: [facility] 07-10-2024 10:05-0500 Heart rate 116 /min Joe Christiansen MD Work Phone: [facility] 07-10-2024 10:05-0500 Respiratory rate 20 /min Joe Christiansen MD Work Phone: [facility] 07-10-2024 10:05-0500 SaO2% (BldA) [Mass fraction] 100 % Joe Christiansen MD Work Phone: [facility] 07-10-2024 10:05-0500 Systolic blood pressure 139 mm[Hg] Joe Christiansen MD Work Phone: [facility] 02-18-2024 23:05-0400 Diastolic blood pressure 72 mm[Hg] Rigo Joiner MD Work Phone: [facility] [employer] 02-18-2024 23:05-0400 Heart rate 88 /min Rigo Joiner MD Work Phone: [employer] 02-18-2024 23:05-0400 Respiratory rate 16 /min Rigo Joiner MD Work Phone: [facility] [employer] 02-18-2024 23:05-0400 SaO2% (BldA) [Mass fraction] 98 % Rigo Joiner MD Work Phone: [facility] [employer] 02-18-2024 23:05-0400 Systolic blood pressure 130 mm[Hg] Rigo Joiner MD Work Phone: [facility] [employer] 02-18-2024 21:07-0400 Body height 160 cm Rigo Joiner MD Work Phone: [facility] [employer] 02-18-2024 21:07-0400 Body mass index (BMI) [Ratio] 49.6 kg/m2 Rigo Joiner MD Work Phone: [facility] [employer] 02-18-2024 21:07-0400 Body temperature 98.2 [degF] Rigo Joiner MD Work Phone: [facility] [employer] 02-18-2024 21:07-0400 Body weight 127.01 kg Rigo Joiner MD Work Phone: [facility] [email or web address] 02-17-2024 09:01-0400 Blood Pressure Location CLARISSE BRODY MD [facility] 02-17-2024 09:01-0400 Blood Pressure Method CLARISSE BRODY MD [facility] 02-17-2024 09:01-0400 Body temperature 98.24 [degF] CLARISSE BRODY MD [facility] 02-17-2024 09:01-0400 Body weight 129.7 kg CLARISSE BRODY MD [facility] 02-17-2024 09:01-0400 Diastolic Blood Pressure Non-Invasive 71 mm[Hg] CLARISSE BRODY MD [facility] 02-17-2024 09:01-0400 Heart rate 74 /min CLARISSE BRODY MD [facility] 02-17-2024 09:01-0400 Respiratory rate 18 /min CLARISSE BRODY MD [facility] 02-17-2024 09:01-0400 Systolic Blood Pressure Non-Invasive 124 mm[Hg] CLARISSE BRODY MD [facility] 02-17-2024 07:27-0400 Body mass index (BMI) [Ratio] 49.31 kg/m2 Skinny Moore BUDGET REPORT CLERK.[employer]URRY CONTROL TEND[employer] Work Phone: [facility] 02-17-2024 07:27-0400 Body temperature 98.6 [degF] Skinny Moore BUDGET REPORT CLERK.[employer] T[employer] Work Phone: [facility] 02-17-2024 07:27-0400 Body weight 130.3 kg Skinny Moore BUDGET REPORT CLERK.[employer]UR[employer] CONTR[employer] TEND[employer] Work Phone: [facility] 02-17-2024 07:27-0400 Diastolic blood pressure 82 mm[Hg] Skinny Moore BUDGET REPORT CLERK.[employer]UR[employer] CONTR[employer] T[employer] Work Phone: [facility] 02-17-2024 07:27-0400 Heart rate 104 /min Skinny Moore BUDGET REPORT CLERK.[employer]URRY CONTROL TENDER Work Phone: [facility] 02-17-2024 07:27-0400 Respiratory rate 16 /min Skinny Moore BUDGET REPORT CLERK.SLURRY CONTROL TENDER Work Phone: [facility] 02-17-2024 07:27-0400 SaO2% (BldA) [Mass fraction] 99 % Skinny Moore BUDGET REPORT CLERK.[employer]URRY CONTROL TENDER Work Phone: [facility] 02-17-2024 07:27-0400 Systolic blood pressure 128 mm[Hg] Skinny Moore BUDGET REPORT CLERK.[employer]URRY CONTR[employer] TEND[employer] Work Phone: [facility] 09-02-2023 16:54-0400 Body temperature 98.6 [degF] Siva Herndon BUDGET REPORT CLERK.[employer]UR[employer] CONTR[employer] TEND[employer] Work Phone: [facility] 09-02-2023 16:54-0400 Body weight 126.8 kg Siva Herndon BUDGET REPORT CLERK.[employer]UR[employer] CONTR[employer] TENDER Work Phone: [facility] 09-02-2023 16:54-0400 Diastolic blood pressure 98 mm[Hg] Siva Herndon BUDGET REPORT CLERK.[employer]URRY CONTR[employer] TEND[employer] Work Phone: [facility] 09-02-2023 16:54-0400 Heart rate 100 /min Siva Yanikc BUDGET REPORT CLERK.SLURRY CONTROL TENDER Work Phone: [facility] 09-02-2023 16:54-0400 Respiratory rate 21 /min Siva Herndon BUDGET REPORT CLERK.[employer]URRY CONTROL TENDER Work Phone: [facility] 09-02-2023 16:54-0400 SaO2% (BldA) [Mass fraction] 97 % Siva Herndon BUDGET REPORT CLERK.[employer]URRY CONTROL TENDER Work Phone: [facility] 09-02-2023 16:54-0400 Systolic blood pressure 124 mm[Hg] Siva Herndon BUDGET REPORT CLERK.SLURRY CONTROL TENDER Work Phone: [facility] 08-26-2023 13:32-0500 Body temperature 99.3 [degF] Krislyn Aberegg PA Work Phone: [facility] 08-26-2023 13:32-0500 Body weight 127.01 kg Krislyn Aberegg PA Work Phone: [facility] 08-26-2023 13:32-0500 Diastolic blood pressure 78 mm[Hg] Krislyn Aberegg PA Work Phone: [facility] 08-26-2023 13:32-0500 Heart rate 86 /min Krislyn Aberegg PA Work Phone: [facility] 08-26-2023 13:32-0500 Respiratory rate 18 /min Krislyn Aberegg PA Work Phone: [facility] 08-26-2023 13:32-0500 SaO2% (BldA) [Mass fraction] 98 % Krislyn Aberegg PA Work Phone: [facility] 08-26-2023 13:32-0500 Systolic blood pressure 142 mm[Hg] Krislyn Aberegg PA Work Phone: [facility] 12-14-2022 13:02-0400 Body height 160 cm Tatiana Nieves BUDGET REPORT CLERK.SLURRY CONTROL TENDER Work Phone: [facility] 12-14-2022 13:02-0400 Body weight 122.29 kg Tatiana Nieves BUDGET REPORT CLERK.[facility] Work Phone: [facility] 12-14-2022 13:02-0400 Diastolic blood pressure 58 mm[Hg] Tatiana Nieves BUDGET REPORT CLERK.SLURRY CONTROL TENDER Work Phone: [facility] 12-14-2022 13:02-0400 Heart rate 79 /min Tatiana Nieves BUDGET REPORT CLERK.SLURRY CONTROL TENDER Work Phone: [facility] 12-14-2022 13:02-0400 Systolic blood pressure 107 mm[Hg] Tatiana Nieves BUDGET REPORT CLERK.[facility] Work Phone: [facility] 07-09-2022 03:11-0500 Diastolic blood pressure 75 mm[Hg] [facility] Work Phone: 07-09-2022 03:11-0500 Heart rate 65 /min [facility] Work Phone: 07-09-2022 03:11-0500 Respiratory rate 18 /min [facility] Work Phone: 07-09-2022 03:11-0500 SaO2% (BldA) [Mass fraction] 100 % [facility] Work Phone: 07-09-2022 03:11-0500 Systolic blood pressure 122 mm[Hg] [facility] Work Phone: 07-09-2022 00:22-0500 Body height 160.02 cm [facility] Work Phone: 07-09-2022 00:22-0500 Body mass index (BMI) [Percentile] Per age and sex 99.1 % [facility] Work Phone: 07-09-2022 00:22-0500 Body mass index (BMI) [Ratio] 46 kg/m2 [facility] Work Phone: 07-09-2022 00:22-0500 Body temperature 96.5 [degF] [facility] Work Phone: 07-09-2022 00:22-0500 Body weight 117.8 kg [facility] Work Phone: 06-14-2022 10:15-0500 Body height 160 cm Juan Gates MD Work Phone: [facility] 06-14-2022 10:15-0500 Body weight 113.4 kg Juan Gates MD Work Phone: [facility] 05-14-2022 16:23-0500 Body temperature 97.81 [degF] Beth Denbow PA-C Work Phone: [facility] 05-14-2022 16:23-0500 Body weight 114.85 kg Beth Denbow PA-C Work Phone: [facility] 05-14-2022 16:23-0500 Diastolic blood pressure 64 mm[Hg] Beth Denbow PA-C Work Phone: [facility] 05-14-2022 16:23-0500 Heart rate 91 /min Beth Denbow PA-C Work Phone: [facility] 05-14-2022 16:23-0500 Respiratory rate 18 /min Beth Denbow PA-C Work Phone: [facility] 05-14-2022 16:23-0500 SaO2% (BldA) [Mass fraction] 99 % Beth Denbow PA-C Work Phone: [facility] 05-14-2022 16:23-0500 Systolic blood pressure 106 mm[Hg] Beth Denbow PA-C Work Phone: [facility] 05-07-2022 23:14-0500 Body height 160.02 cm [facility] Work Phone: 05-07-2022 23:14-0500 Body mass index (BMI) [Percentile] Per age and sex 98.9 % [facility] Work Phone: 05-07-2022 23:14-0500 Body mass index (BMI) [Ratio] 44 kg/m2 [facility] Work Phone: 05-07-2022 23:14-0500 Body temperature 97 [degF] [facility] Work Phone: 05-07-2022 23:14-0500 Body weight 112.7 kg [facility] Work Phone: 05-07-2022 23:14-0500 Diastolic blood pressure 88 mm[Hg] [facility] Work Phone: 05-07-2022 23:14-0500 Heart rate 106 /min [facility] Work Phone: 05-07-2022 23:14-0500 Respiratory rate 20 /min [facility] Work Phone: 05-07-2022 23:14-0500 SaO2% (BldA) [Mass fraction] 100 % [facility] Work Phone: 05-07-2022 23:14-0500 Systolic blood pressure 144 mm[Hg] [facility] Work Phone: 04-09-2022 05:58-0400 Diastolic blood pressure 75 mm[Hg] [facility] Work Phone: 04-09-2022 05:58-0400 Heart rate 89 /min [facility] Work Phone: 04-09-2022 05:58-0400 Respiratory rate 18 /min [facility] Work Phone: 04-09-2022 05:58-0400 SaO2% (BldA) [Mass fraction] 100 % [facility] Work Phone: 04-09-2022 05:58-0400 Systolic blood pressure 122 mm[Hg] [facility] Work Phone: 04-09-2022 04:20-0400 Body mass index (BMI) [Percentile] Per age and sex 98.9 % [facility] Work Phone: 04-09-2022 04:20-0400 Body mass index (BMI) [Ratio] 43.7 kg/m2 [facility] Work Phone: 04-09-2022 04:20-0400 Body temperature 98.5 [degF] [facility] Work Phone: 04-09-2022 04:20-0400 Body weight 111.9 kg [facility] Work Phone: 12-17-2021 03:13-0400 Diastolic blood pressure 90 mm[Hg] Dr. Rukhsana Luz Work Phone: [facility] Work Phone: 12-17-2021 03:13-0400 Heart rate 111 /min Dr. Rukhsana Luz Work Phone: [facility] Work Phone: 12-17-2021 03:13-0400 Respiratory rate 18 /min Dr. Rukhsana Luz Work Phone: [facility] Work Phone: 12-17-2021 03:13-0400 Systolic blood pressure 138 mm[Hg] Dr. Rukhsana Luz Work Phone: [facility] Work Phone: 12-17-2021 02:47-0400 Body height 160.[address] Rukhsana Luz Work Phone: [facility] Work Phone: 12-17-2021 02:47-0400 Body mass index (BMI) [Percentile] Per age and sex 98.7 % Dr. Rukhsana Luz Work Phone: [facility] Work Phone: 12-17-2021 02:47-0400 Body mass index (BMI) [Ratio] 41.1 kg/m2 Dr. Rukhsana Luz Work Phone: [facility] Work Phone: 12-17-2021 02:47-0400 Body temperature 99 [degF] Dr. Rukhsana Luz Work Phone: [facility] Work Phone: 12-17-2021 02:47-0400 Body weight 105.[address] Rukhsana Luz Work Phone: [facility] Work Phone: 12-17-2021 02:47-0400 SaO2% (BldA) [Mass fraction] 97 % Dr. Rukhsana Luz Work Phone: [facility] Work Phone: 12-12-2021 14:11-0400 Respiratory rate 18 /min Dr. Rukhsana Luz Work Phone: [facility] Work Phone: 12-12-2021 13:31-0400 Diastolic blood pressure 60 mm[Hg] Dr. Rukhsana Luz Work Phone: [facility] Work Phone: 12-12-2021 13:31-0400 Heart rate 82 /min Dr. Rukhsana Luz Work Phone: [facility] Work Phone: 12-12-2021 13:31-0400 Respiratory rate 16 /min Dr. Rkuhsana Luz Work Phone: [facility] Work Phone: 12-12-2021 13:31-0400 SaO2% (BldA) [Mass fraction] 98 % Dr. Rukhsana Luz Work Phone: [facility] Work Phone: 12-12-2021 13:31-0400 Systolic blood pressure 119 mm[Hg] Dr. Rukhsana Luz Work Phone: [facility] Work Phone: 12-12-2021 10:35-0400 Body height 160.[address] Rukhsana Luz Work Phone: [facility] Work Phone: 12-12-2021 10:35-0400 Body mass index (BMI) [Percentile] Per age and sex 98.7 % Dr. Rukhsana Luz Work Phone: [facility] Work Phone: 12-12-2021 10:35-0400 Body mass index (BMI) [Ratio] 40.4 kg/m2 Dr. Rukhsana Luz Work Phone: [facility] Work Phone: 12-12-2021 10:35-0400 Body temperature 99 [degF] Dr. Rukhsana Luz Work Phone: [facility] Work Phone: 12-12-2021 10:35-0400 Body weight 103.[address] Rukhsana Luz Work Phone: [facility] Work Phone: 10-27-2021 09:52-0400 Body mass index (BMI) [Percentile] Per age and sex 98.7 % Dr. Rukhsana Luz Work Phone: [facility] Work Phone: 10-27-2021 09:52-0400 Body mass index (BMI) [Ratio] 40.6 kg/m2 Dr. Rukhsana Luz Work Phone: [facility] Work Phone: 10-27-2021 09:52-0400 Body temperature 97.2 [degF] Dr. Rukhsana Luz Work Phone: [facility] Work Phone: 10-27-2021 09:52-0400 Body weight 104.[address] Rukhsana Luz Work Phone: [facility] Work Phone: 10-27-2021 09:52-0400 Diastolic blood pressure 84 mm[Hg] Dr. Rukhsana Luz Work Phone: [facility] Work Phone: 10-27-2021 09:52-0400 Heart rate 81 /min Dr. Rukhsana Luz Work Phone: [facility] Work Phone: 10-27-2021 09:52-0400 Respiratory rate 17 /min Dr. Rukhsana Luz Work Phone: [facility] Work Phone: 10-27-2021 09:52-0400 SaO2% (BldA) [Mass fraction] 99 % Dr. Rukhsana Luz Work Phone: [facility] Work Phone: 10-27-2021 09:52-0400 Systolic blood pressure 168 mm[Hg] Dr. Rukhsana Luz Work Phone: [facility] Work Phone: 10-01-2021 03:09-0400 Diastolic blood pressure 87 mm[Hg] [facility] Work Phone: 10-01-2021 03:09-0400 Heart rate 79 /min [facility] Work Phone: 10-01-2021 03:09-0400 Respiratory rate 16 /min [facility] Work Phone: 10-01-2021 03:09-0400 SaO2% (BldA) [Mass fraction] 98 % [facility] Work Phone: 10-01-2021 03:09-0400 Systolic blood pressure 124 mm[Hg] [facility] Work Phone: 10-01-2021 01:18-0400 Body height 160.02 cm [facility] Work Phone: 10-01-2021 01:18-0400 Body mass index (BMI) [Percentile] Per age and sex 98.6 % Dr. Rukhsana Luz Work Phone: [facility] Work Phone: 10-01-2021 01:18-0400 Body mass index (BMI) [Ratio] 39.5 kg/m2 [facility] Work Phone: 10-01-2021 01:040 Body temperature 98.4 [degF] [facility] Work Phone: 10-01-2021 01: Body weight 101.2 kg [facility] Work Phone: Encounters Encounter Date Encounter Type Care Provider Facility Start: 12-02-2024 ambulatory Nikki Olsen C Fa cility:[facility] Start: 11-30-2024 ambulatory Nikki Raúl [facility] Fa cility:[facility] Start: 11-27-2024 End: 11-27-2024 ambulatory Nikki Olsen [facility] Facility:[facility] Start: 11-04-2024 ambulatory Nikki Raúl [facility] Fa cility:[facility] Start: 10-28-2024 ambulatory Nikki Raúl [facility] Fa cility:[facility] Start: 10-05-2024 End: 10-05-2024 ambulatory Nikki Olsen [facility] Facility:[facility] Start: 09-30-2024 ambulatory Nikki Olsen [facility] Fa cility:[facility] Start: 09-30-2024 End: 09-30-2024 ambulatory Nikki Olsen [facility] Facility:[facility] Start: 09-14-2024 End: 09-14-2024 Emergency department patient visit Nikkirafael Olsen [facility] Facility:[facility] Start: 09-12-2024 End: 09-12-2024 ambulatory Nikki Olsen [facility] Facility:[facility] Start: 09-03-2024 End: 09-03-2024 ambulatory Nikkielizabeth Olsen [facility] Facility:[facility] Start: 08-05-2024 End: 08-05-[facility] Start: 07-29-2024 End: 07-29-2024 ambulatory ANDREA CARTER DO Facility[place] Start: 07-29-2024 End: 07-29-2024 Patient encounter procedure ANDREA CARTER DO [facility] Start: 07-27-2024 End: 07-27-2024 Emergency department patient visit ANDREA CARTER DO [facility] Start: 07-10-2024 End: 07-10-2024 Emergency department patient visit Nikki Raúl [facility] Facility:[facility] Start: 07-10-2024 End: 07-10-2024 [facility] Start: 07-10-2024 End: 07-10-2024 Office outpatient visit 15 minutes Joe Christiansen MD Work Phone: [facility] Comment on above: Bilateral leg edema (Primary Dx); Tachycardia; SOB (shortness of breath); Nausea Start: 07-08-2024 [facility] Fac [facility] Start: 07-08-2024 End: 07-08-2024 ambulatory Mercedes Cox Facility:[facility] Start: 06-29-2024 End: 06-29-2024 ambulatory Cristo Cox [facility] Facility:[facility] Start: 06-24-2024 End: 06-24-2024 Emergency department patient visit Tom Villar Facility:[facility] Start: 06-23-2024 End: 06-23-2024 ambulatory Christian ANDERSON Facility:[facility] Start: 06-09-2024 End: 06-09-2024 ambulatory [facility] Facility:[facility] Start: 05-02-2024 End: 05-03-2024 Emergency department patient visit CARLOTA RODRIGUEZ [facility] Start: 03-30-2024 End: 03-30-2024 Patient encounter procedure Bhavani ANDERSON Work Phone: [facility] Comment on above: Procedure not azeem d out (Primary Dx) Start: 03-30-2024 End: 03-30-2024 [facility] Start: 03-08-2024 End: 03-08-2024 Emergency department patient visit Nikki Raúl [facility] Facility:[facility] Start: 02-19-2024 ambulatory Shan Brody Facility:[facility] [place] Start: 02-19-2024 End: 02-19-2024 ambulatory [facility] Facility:[facility] Start: 02-18-2024 End: 02-18-2024 Subsequent hospital visit by physician [facility] Exam Room 1 [facility] Comment on above: Arrived Start: 02-18-2024 End: 02-18-2024 Emergency department patient visit Rigo Joiner MD Work Phone: [facility] Comment on above: Constipation, unspec ified constipation type (Primary Dx) Start: 02-17-2024 End: 02-17-2024 Emergency department patient visit CLARISSE BRODY MD [facility] Start: 02-17-2024 End: 02-17-2024 ambulatory [facility] Facility:[facility] Start: 02-17-2024 End: 02-17-2024 Patient encounter procedure Skinny Moore APRN.[employer]URRY CONTR[employer] TENDER Work Phone: [facility] Comment on above: Urinary frequency (P rimary Dx) Start: 01-23-2024 End: 01-23-2024 ambulatory [facility] Facility:[facility] Start: 01-23-2024 End: 01-23-2024 ambulatory [facility] Facility:[facility] Start: 01-17-2024 ambulatory [facility] Fa cility:[facility] Start: 12-30-2023 End: 12-30-2023 Emergency department patient visit [facility] Facility:[facility] Start: 09-03-2023 Telephone encounter Skinny calvillo APRN.SLURRY CONTROL TENDER Work Phone: [facility] Comment on above: Results Start: 09-02-2023 End: 09-02-2023 Office outpatient visit 15 minutes Siva Herndon APRN.SLURRY CONTROL TENDER Work Phone: [facility] Comment on above: Viral illness (Prima ry Dx) Start: 08-30-2023 End: 08-31-2023 Emergency department patient visit [facility] Facility:[facility] Start: 08-29-2023 Emergency department patient visit [facility] Facility:[facility] Start: 08-26-2023 End: 08-26-2023 Patient encounter procedure Bhavani ANDERSON Work Phone: [facility] Comment on above: Headache, unspecifie d headache type (Primary Dx) Start: 12-14-2022 End: 12-14-2022 Patient encounter procedure Tatiana Nieves APRN.SLURRY CONTROL TENDER Work Phone: Rheumatology Comment on above: Fibromyalgia (Primar y Dx) Start: 07-09-2022 End: 07-09-2022 [facility] Start: 06-14-2022 End: 06-14-2022 Patient encounter procedure Juan Gates MD Work Phone: Orthopaedics Comment on above: 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) Start: 05-24-2022 ambulatory Pcp ([facility] Start: 05-14-2022 End: 05-14-2022 Subsequent hospital visit by physician [facility] Work Phone: Radiology Comment on above: Right wrist pain [M2 5.531] Start: 05-14-2022 End: 05-14-2022 Patient encounter procedure Beth Aguirre PA-C Work Phone: [facility] Comment on above: Right wrist pain (Pr imary Dx) Start: 05-07-2022 End: 05-08-2022 [facility] Start: 04-09-2022 End: 04-09-2022 Emergency department patient visit [facility] Start: 12-17-2021 End: 12-17-2021 Emergency department patient visit Dr. Rukhsana Luz Work Phone: [facility] Start: 12-12-2021 End: 12-12-2021 Emergency department patient visit Dr. Rukhsana Luz Work Phone: [facility] Start: 10-27-2021 End: 10-27-[address] Rukhsana Luz Work Phone: [facility] Start: 10-11-2021 End: 10-11-2021 Patient encounter procedure [facility], [facility] Start: 10-01-2021 End: 10-01-2021 Emergency department patient visit [facility] Start: 03-17-2018 End: 03-17-2018 Patient encounter DEANN MANUEL [facility] Procedures Date Procedure Procedure Detail [...] et rgnt auto w/o microscopy Skinny Moore APRN.SLURRY CONTROL TENDER Work Phone: Start: 05-14-2022 Radex wrist complete [...] or older (1 - 1-dose 60+ series) [facility] Start: 2053 Zoster Vaccines (1 of 2) Zoste r Vaccines (1 of 2) [facility] Start: 03-18-2025 Urine microalbumin profile DTaP,Tdap,Td Vaccine (7 - Td or Tdap) [facility] Start: 02-23-2024 Covid-19 Vaccine ( season) Covid-19 Vaccine ( season) [facility] Start: 02-23-2024 Influenza vaccination Influenza Vacc ine (#1) [facility] Start: 01-23-2024 Screening for malign ant neoplasm of cervix [facility] Start: 09-02-2023 End: 09-16-2023 COVID & INFLUENZA A/B & RSV NAAT, ROUTINE COVID & INFLUENZA A/B & RSV NAAT, ROUTINE Microbiology Routine Viral illness Expected: 09/02/2023, Expires: 09/16/2023 [facility] Work Phone: Comment on above: Expected: 09/02/2023 , Expires: 09/16/2023 Start: 06-24-2023 [facility] Start: 02-22-2023 COVID-19 Vaccine ( season) COVID-19 Vaccine () [facility] Start: 02-22-2023 Covid-19 Vaccine ( season) Covid-19 Vaccine () [facility] Start: 02-22-2023 Influenza vaccination [facility] Start: 12-14-2022 End: 02-13-2023 Cyclic citrullinated peptide IgG Ab [Units/volume] in Serum or Plasma [facility] Work Phone: Comment on above: Expected: 12/14/2022 , Expires: 02/13/2023 Start: 12-14-2022 End: 02-13-2023 Erythrocyte sedimentation rate [facility] Work Phone: Comment on above: Expected: 12/14/2022 , Expires: 02/13/2023 Start: 12-14-2022 End: 02-13-2023 Rheumatoid factor [Units/volume] in Serum or Plasma [facility] Work Phone: Comment on above: Expected: 12/14/2022 , Expires: 02/13/2023 Start: 06-24-2022 DEPRESSION ASSESSMENT DEPRESSION ASS ESSMENT [facility] Start: 02-22-2022 Influenza vaccination INFLUENZA (#1) [facility] Start: 2022 DTaP/Tdap/Td Vaccine s (1 - Tdap) DTaP/Tdap/Td Vaccines (1 - Tdap) [facility] Start: 2022 Hepatitis B Vaccines (1 of 3 - 19+ 3-dose series) Hepatitis B Vaccines (1 of 3 - 19+ 3-dose series) [facility] Start: 2022 Urine microalbumin profile DTAP,TDAP,TD (1 - Tdap) [facility] Start: 12-17-2021 [facility] Work Phone: Start: 12-17-2021 Patient discharge [facility] Work Phone: Start: 08-17-2021 COVID-19 VACCINE (4 - Booster for Pfizer series) COVID-19 VACCINE (4 - Booster for Pfizer series) [facility] Start: 06-24-2021 DEPRESSION ASSESSMENT DEPRESSION ASS ESSMENT [facility] Start: 2021 Anxiety Screening Anxiety Screening [facility] Start: 2021 CHLAMYDIA SCREENING (18-24) CHLAMYDIA SCREENING (18-24) [facility] Start: 2021 Depression Screening Depression Scre ening [facility] Start: 2021 GC (GONORRHEA) SCREE DURGA (18-24) GC (GONORRHEA) SCREENING (18-24) [facility] Start: 2021 HEPATITIS C SCREENING HEPATITIS C [facility] Start: 2021 Hepatitis C screening Hepatitis C [facility] Start: 2021 HIV SCREENING HIV SCREENING [facility] Start: 2021 HIV screening HIV Screening [facility] Start: 2021 Screening for Chlamy pravin trachomatis Chlamydia Screening (18-) [facility] Start: 08-07-2020 HPV Vaccine (3 - 3-d ose series) HPV Vaccine (3 - 3-dose series) [facility] Start: 2019 Meningococcal B Vacc ine: Consider Based On Risk (1 of 2 - Patient Seeks Protection) Meningococcal B Vaccine: Consider Based On Risk (1 of 2 - Patient Seeks Protection) [facility] Start: 2018 HPV Vaccines (1 - 3- dose series) HPV Vaccines (1 - 3-dose series) [facility] Start: 2017 PEDS TO ADULT TRANSI TION ANNUAL ASSESSMENT PEDS TO ADULT TRANSITION ANNUAL ASSESSMENT [facility] Start: 01-23-2016 Varicella vaccination Varicell a Vaccines (1 of 2 - 13+ 2-dose series) [facility] Start: 2015 Depression Screening Depression Scre ening [facility] Start: 2015 PEDS TO ADULT TRANSI TION INITIAL DISCUSSION PEDS TO ADULT TRANSITION INITIAL DISCUSSION [facility] Start: 2014 HPV VACCINE (1 - 2-d ose series) HPV VACCINE (1 - 2-dose series) [facility] Start: 2013 MENINGOCOCCAL B: Consider based on risk (1 of 2 - Risk Bexsero 2-dose series) MENINGOCOCCAL B: Consider based on risk (1 of 2 - Risk Bexsero 2-dose series) [facility] Start: 01-23-2012 HPV VACCINE (1 - 2-d ose series) HPV VACCINE (1 - 2-dose series) [facility] Start: 01-23-2004 MMR Vaccines (1 of 1 - Standard series) MMR Vaccines (1 of 1 - Standard series) [facility] Start: 2003 HEPATITIS B (1 of 3 - 3-dose series) HEPATITIS B (1 of 3 - 3-dose series) [facility] Start: 2003 HIV screening HIV Screening [facility] ernesto Bacteria identified in Urine by Culture URINE CULTURE Microbiology Routine Urinary frequency Ordered: 02/17/2024 [facility] Work Phone: Comment on above: Ordered: 02/17/2024 Patient Education [facility] Work Phone: Patient referral [facility] Work Phone: [facility] Immunizations Immunization Date Immunization Notes Care Provider Fa [facility] 04-06-2020 hepatitis A vaccine, pediatric/adolescent dosage, 2 dose schedule Joe Christiansen MD Work Phone: [facility] 04-06-2020 Human Papillomavirus 9-valent vaccine Joe Christiansen MD Work Phone: [facility] 04-06-2020 influenza, injectabl e, quadrivalent, preservative free Joe Christiansen MD Work Phone: [facility] 04-06-2020 meningococcal polysaccharide (groups A, C, Y and W-135) diphtheria toxoid conjugate vaccine (MCV4P) Joe Christiansen MD Work Phone: [facility] 04-06-2020 influenza virus vacc ine, unspecified formulation Bhavani ANDERSON Work Phone: [facility] 03-30-2020 meningococcal oligosaccharide (groups A, C, Y and W-135) diphtheria toxoid conjugate vaccine (MCV4O) Joe Christiansen MD Work Phone: [facility] 03-17-2018 hepatitis A vaccine, pediatric/adolescent dosage, 2 dose schedule Joe Christiansen MD Work Phone: [facility] 03-17-2018 Human Papillomavirus 9-valent vaccine Joe Christiansen MD Work Phone: [facility] 03-17-2018 meningococcal polysaccharide (groups A, C, Y and W-135) diphtheria toxoid conjugate vaccine (MCV4P) Joe Christiansen MD Work Phone: [facility] 03-18-2015 tetanus toxoid, redu dhruv diphtheria toxoid, and acellular pertussis vaccine, adsorbed Joe Christiansen MD Work Phone: [facility] 03-17-2015 meningococcal oligosaccharide (groups A, C, Y and W-135) diphtheria toxoid conjugate vaccine (MCV4O) Joe Christiansen MD Work Phone: [facility] 03-16-2008 diphtheria, tetanus toxoids and acellular pertussis vaccine Joe Christiansen MD Work Phone: [facility] 03-16-2008 measles, mumps and r ubella virus vaccine Joe Christiansen MD Work Phone: [facility] 03-16-2008 poliovirus vaccine, inactivated Joe Christiansen MD Work Phone: [facility] 03-16-2008 varicella virus vaccine Ashley Christiansen MD Work Phone: [facility] 11-28-2004 diphtheria, tetanus toxoids and acellular pertussis vaccine Joe Christiansen MD Work Phone: [facility] 11-28-2004 pneumococcal conjuga te vaccine, 7 valent Joe Christiansen MD Work Phone: [facility] 11-28-2004 poliovirus vaccine, inactivated Joe Christiansen MD Work Phone: [facility] 11-28-2004 varicella virus vaccine Ashley Christiansen MD Work Phone: [facility] 04-13-2004 haemophilus influenz ae type b conjugate and Hepatitis B vaccine Joe Christiansen MD Work Phone: [facility] 04-13-2004 influenza virus vacc ine, whole virus Joe Christiansen MD Work Phone: [facility] 04-13-2004 measles, mumps and r ubella virus vaccine Joe Christiansen MD Work Phone: [facility] 04-13-2004 pneumococcal conjuga te vaccine, 7 valjuan Christiansen MD Work Phone: [facility] 2003 diphtheria, tetanus toxoids and acellular pertussis vaccine Joe Christiansen MD Work Phone: [facility] 2003 haemophilus influenz ae type b vaccine, PRP-T conjugate Joe Christiansen MD Work Phone: [facility] 2003 diphtheria, tetanus toxoids and acellular pertussis vaccine Joe Christiansen MD Work Phone: [facility] 2003 haemophilus influenz ae type b vaccine, PRP-T conjugate Joe Christiansen MD Work Phone: [facility] 2003 pneumococcal conjuga te vaccine, 7 valent Joe Christiansen MD Work Phone: [facility] 2003 poliovirus vaccine, inactivated Joe Christiansen MD Work Phone: [facility] 2003 diphtheria, tetanus toxoids and acellular pertussis vaccine Joe Christiansen MD Work Phone: [facility] 2003 haemophilus influenz ae type b conjugate and Hepatitis B vaccine Joe Christiansen MD Work Phone: [facility] 2003 pneumococcal conjuga te vaccine, 7 valent Joe Christiansen MD Work Phone: [facility] 2003 poliovirus vaccine, inactivated Joe Christiansen MD Work Phone: [facility] 2003 hepatitis B vaccine, pediatric or pediatric/adolescent dosage Joe Christiansen MD Work Phone: [facility] Payers Date Payer Category Payer Unknown [id number] 2024 Unknown [id number] 2023 Self-pay [id number] 2023 Unknown [id number] 2022 Medicaid [id number] 2022 Medicaid [id number] 2013 Unknown [id number] 2003 Unknown [id number] 2.16.8 [id number] 2003 Unknown [id number] 2.16.8 40.1.493113.3.579.2.651 2003 Unknown [id number] 2.16.8 40.1.440380.3.579.2.627 2003 Unknown [id number] 2.16.8 40.1.764982.3.579.2.627 Unknown [id number] 2.16.8 40.1.450523.3.579.2.462 Unknown [id number] 2.16.8 40.1.559926.3.579.2.462 Unknown [id number] 2.16.8 40.1.167462.3.579.2.462 Unknown [id number] 2.16.8 40.1.170395.3.579.2.462 Unknown [id number] 2.16.8 40.1.083536.3.579.2.462 Unknown [id number] 2.16.8 40.1.931978.3.579.2.462 Unknown [id number] 2.16.8 40.1.918463.3.579.2.462 Unknown [id number] 2.16.8 40.1.968259.3.579.2.462 Unknown [id number] 2.16.8 40.1.316135.3.579.2.462 Unknown [id number] 2.16.8 40.1.951058.3.579.2.462 Unknown [id number] 2.16.8 40.1.127046.3.579.2.462 Unknown [id number] 2.16.8 40.1.949892.3.579.2.462 Unknown [id number] 2.16.8 40.1.579259.3.579.2.462 Unknown [id number] 2.16.8 40.1.022677.3.579.2.462 Unknown [id number] 2.16.8 40.1.083797.3.579.2.462 Unknown [id number] 2.16.8 40.1.501438.3.579.2.462 Unknown [id number] 2.16.8 40.1.903615.3.579.2.462 Unknown [id number] 2.16.8 40.1.220308.3.579.2.462 Unknown [id number] 2.16.8 40.1.432742.3.579.2.462 Unknown [id number] 2.16.8 40.1.541964.3.579.2.462 Unknown [id number] 2.16.8 40.1.673724.3.579.2.462 Unknown [id number] 2.16.8 40.1.759057.3.579.2.462 Unknown [id number] 2.16.8 40.1.009185.3.579.2.462 Unknown [id number] 2.16.8 40.1.753890.3.579.2.462 Unknown [id number] 2.16.8 40.1.642069.3.579.2.462 Unknown [id number] 2.16.8 40.1.955069.3.579.2.462 Unknown [id number] 2.16.8 40.1.827026.3.579.2.462 Unknown [id number] 2.16.8 40.1.147105.3.579.2.462 Social History Date Type Detail Facility [facility] Work Phone: Start: 10-01-2021 End: 07-09-2022 Tobacco smoking status NHIS Unknown if ever smoked [facility] Work Phone: Start: 2005 Sex Assigned At Female A [facility] Start: 02-28-2022 Tobacco smoking stat us OHIS Never smoked tobacco [facility] Start: 02-28-2022 Tobacco use and exposure Smokeless tobacco non-user [facility] Start: 05-14-2022 End: 07-10-2024 Alcohol intake Lifetime non-drinker (finding) [facility] Start: 2005 Sex Assigned At Not on file [facility] Start: 08-26-2023 End: 08-30-2023 History of Social function [facility] Start: 08-26-2023 End: 08-30-2023 Tobacco use panel [facility] Adult Depression Screening Assessment 2 [facility] Tobacco smoking status [facility] Start: 02-17-2024 Sex Female (finding) [facility] Functional Status Date Assessment Result Facility 07-27-2024 Functional Status ID band on, Allergy Band on, Call device within reach, Bed in low position, Wheels locked, Upper/Half-Length side-rails up, Phone within reach, personal items within reach, Safety level maintained [facility] 02-17-2024 Functional Status ID band on, Allergy Band on, Call device within reach, Bed in low position, Wheels locked, Upper/Half-Length side-rails up, Safety level maintained [facility] Mental Status Date Assessment Result Facility 07-27-2024 Mental Status Oriented x 4 [facility] 02-17-2024 Mental Status Oriented x 4 [facility] 05-15-2022 Cognitive function Level Of Cons ciousness Awake;Alert;Appropriate;Follow s Commands [facility] Work Phone: 12-17-2021 Cognitive function Level Of Cons ciousness Awake;Alert;Appropriate [facility] Work Phone: Clinical Notes 05-14-2022 to 07-29-2024 Note Date & Type Note Facility 07-29-2024 Note Exam Date Time Procedure Performing Provider Status 07/29/24 1:12 PM VL Venous US/Doppler One Leg (for DVT). NEHEMIAS CHURCH MD; Auth (Verified) [facility]02-03-2025 Hospital Discharge instructions Patient Education 07/27/2024 [...] alternate ice and heat. You may use oqcl-hah-jsazptk pain medicine to control pain, unless another [...] numb, or tingly Pain or swelling increases 1426-0643 [employer] [address] [place] [address]85. All rights reserved. This information is not intended as a substitute for professional medical care. Always follow yourhealthcare professional's instructions. Follow Up Care 07/27/2024 04:25:30 With:NIKKI OLSEN Address: [address] [place] [phone] When:2-4 days [facility] 02-03-2025 Note Discharge Instructions Thank you for allowing [facility] to assist you with your healthcare needs. The following is importantdischarge information regarding your hospital visit. Diagnosis from Today's Visit Leg pain What to Do Next Instructions from Your Care Team Discharge ED Outpatient Vascular Lab - Ordered -- Test Requested: venous duplex u/s lle, Lower extremity, Left, Test Reason: Pain, Mon-Fri 8am-4:30pm: Call [phone] at 7:30am to schedule a same day appointment for testing. Please be aware there may be a short wait time., Weekend Holiday 8am-6pm:... Post Acute Orders No qualifying data available. You Need to Schedule the Following Appointments Follow Up with NIKKI OLSEN When:Within 2-4 days Where:[address] [place] [phone] Allergies Wellbutrin Medications Please ask your primary [...] alternate ice and heat. You may use gpps-olq-vymkbrr pain medicine to control pain, unless another [...] numb, or tingly Pain or swelling increases 4567-4511 [employer] [address] [place] [address], [place] [address]. All rights reserved. This information is not intended as a substitute for professional medical care. Always follow yourhealthcare professional's instructions. Additional Information VACCINATE! IT SAVES LIVES! Members of the community who have not yet received the COVID-19 vaccine and would like to receive it can visit one of [facility] vaccine clinics. There are many vaccine clinic locations within the [facility]. For locations and available times, please visit www.gettheshot.coronavirus.[place].gov/. It is important to note that some COVID mobile vaccine clinics are held outdoors and may be canceled in rainy or stormy conditions. To learn more about pediatric vaccinations (ages 5-11), we invite you to visit the [facility] webpage. https://www.[facility].org/pages/5456-Nqthq-Iorvrunscbm-Vizntijlgx-Rrtlu-Zsr stions.htmlTo learn more about the COVID-19 vaccine, we invite you to visit the CDC website for a list of frequently asked questions. https://www.cdc.gov/coronavirus/2019-ncov/vaccines/faq.html [employer] Patient Portal Access Instructions: Stay connected with your healthcare team and access your personal medical information anytime with the [facility] Patient Portal. If you would like a full copy of your medical records please contact the [facility] Medical Records Department Saturday through Saturday between 8a.m. and 4:30p.m. Please follow the directions below to access the portal: 1.Access the email account you provided upon registration to the hospital.2.Look for an invitation email from [facility].3.Open the email and access the invitation link: Accept Invitation to [facility]4.Fill in the required lizarraga to create your account. Sign into [email or web address] with your username and password that you [...] you will allow to register on the [facility] [employer] Patient Portal for access to your information. You can also access the [facility] Patient Portal on the [employer] ana paula. Simply click on Health Records under PlusFourSixData and then click on the Martha logo. HOW TO SAFELY DISPOSE OF PRESCRIPTION [...] Call your local pharmacy or go to http://[employer]/3H0Xr0g to find one close to you.3.Make use of household items: Use cat litter or old coffee grounds to dispose medications if other options arenot available. Mix your drugs with these household products, seal them in an airtight container andthrow it into the garbage. Call [facility]: [phone] to be sure your drugs can be [...] that I should contact my d octor. Patient/Java Engineer Signature: Date/Time: Relationship to Patient: Witness Name/Signature: Date/Time: [facility]01-17-2025 NoteHNO ID: [id number] Author: JOE CHRISTIANSEN MD Service: ? Author [...] says labs were OK. Primary care at [facility]. PAST MEDICAL HISTORY Diagnosis Date Anxiety state [...] declines EMS transfer and will to to [facility] ED. Joe Christiansen, [facility]01-17-2025 History of Present illness Narrative* Joe Christiansen [...] says labs were OK. Primary care at [facility]. PAST MEDICAL HISTORY Diagnosis Date Anxiety [...] declines EMS transfer and will to to [facility] ED. Joe Christiansen MD [facility] NoteDischarge Instructions Discharge Summary [address] [address] [phone] 05/02/2024 Patient: ALINA MALIK Sex: Female : 2005 Age: 19y Thank you for visiting [facility]. You have been evaluated today by [...] 5 days, dispense 10 tablet. Refills0. Pharmacy: [id number] [address] [place] [address]. ketorolac 10 mg tablet: Take 1 tablet by mouth every eight hours as needed for pain for 5 days, dispense 15 tablet. Refills 0. Pharmacy: [facility] [place] [address]. Understanding of the discharge instructions verbalized by patient. 1 of 4 Discharge Instructions Follow-up with: Ramona James, ROJELIO, BUDGET REPORT CLERK, SOFTWARE DEVELOPMENT ANALYST-C, [facility], [facility], Phone: [phone], [address] [facility] [address] [facility], [place] [address]. Follow up in five days even if well. Call for an appointment. Reason for referral: evaluation and treatment. Summary of care provided topatient. You have been given the following additional information: Peripheral Neuropathy Patient Signature Facility Java Engineer Date/Time General Instructions with ExitWriter [address] [place] [phone] 05/02/2024 Patient: ALINA MALIK Sex: Female : 2005 Age: 19y Thank you for visiting [facility]. You have been evaluated today by [...] 5 days, dispense 10 tablet. Refills0. Pharmacy: [facility] - [address] [place] [address]. ketorolac 10 mg tablet: Take 1 tablet by mouth every eight hours as needed for pain for 5 days, dispense 15 tablet. Refills 0. Pharmacy: [facility] [address] [place] [address]. Understanding of the discharge instructions verbalized by patient. Follow-up with: Ramona James, ROJELIO, BUDGET REPORT CLERK, SOFTWARE DEVELOPMENT ANALYST-C, [facility], [facility], Phone: [phone], [address] [address]. Follow up in five days even if [...] medicines you take. This includes prescription and iror-ipb-yrvrnsf medicines, vitamins, and herbs. Ask if any [...] least once a we (more content not included)...[facility] 03-30-2024 NoteHNO ID: [id number] Author: BHAVANI CROSS PA Service: ? Author Type: Physician Game Preserve Manager Type: Progress Notes Filed: 03/30/2024 17:10 Note Text: 19-year-old female presents for shakiness, lightheadedness starting today. Patient was working at the [employer] and she started to feel hot and [...] emergency room. Patient refuses EMS, will take herself.[facility]10-07-2024 History of Present illness Narrative* Bhavani Cross PA - 03/30/2024 5:09 PM EDT 19-year-old female presents for shakiness, lightheadedness starting today. Patient was working at the [employer] and she started to feel hot and [...] EMS, will take herself. documented in [facility] Note. MICRO - Microbiology PROCEDURE: Urine Culture [*1] SOURCE: Urine, Clean Catch BODY SITE: COLLECTED DATE/TIME: 02/17/2024 09:23 EDT RECEIVED DATE/TIME: 02/18/2024 16:22 EDT START DATE/TIME: 02/18/2024 16:22 EDT FREE TEXT SOURCE: FINAL REPORTS Final Report [] Verified Date/Time/Personnel: 02/19/2024 14:35 EDT <10,000 cfu/ml. No Significant growth. Sensitivity not indicated. Performing Locations *1: This test was performed at: [facility], [address] [place] [address], [phone]- , [facility] ([place])02-18-2024 Emergency department Note* Candelaria Gerard RN - 02/18/2024 11:05 PM EDT Pt given discharge instructions and verbalized understanding. Pt is alert and oriented X4. IV removed intact. Pt is ambulatory to the lobby. No concerns at this time. Candelaria Gerard RN 02/18/242305 [facility] Emergency department Note* Candelaria Gerard RN - 02/18/2024 11:05 PM EDT Pt given discharge instructions and verbalized understanding. Pt is alert and oriented X4. IV removed intact. Pt is ambulatory to the lobby. No concerns at this time. Candelaria Gerard RN 02/18/242305 * Candelaria Gerard RN - 02/18/2024 9:[address] Joiner at pt bedside. Candelaria Gerard RN 02/18/24 6005 * Rigo Joiner MD - 02/18/2024 9:00 PM EDT EMERGENCY DEPARTMENT ENCOUNTER Pt Name: Alina Malik Birthdate 2005 Date of evaluation: 02/18/2024 ED Provider: Rigo Joiner MD CHIEF COMPLAINT Chief Complaint Patient presents with Abdominal Pain Pt states she was seen yesterday for same at [facility] and was told she had a uti and discharged. Pt states today the pain has worsened in her RLQ around to her back 10 & sharp/cramping in nature. HISTORY OF PRESENT ILLNESS I wore appropriate PPE for the entirety of this encounter. BAYLEE Malik is a 19 y.o. female who [...] Single Social Determinants of Health Received from [employer] Received from [employer] Transportation Received from [employer] Interpersonal Safety Received from [employer] Housing/Utilities SCREENINGS PHYSICAL EXAM ED Triage Vitals [...] Culture. Procedure Abnormality Status --------- ------ Complete Urinalysis[[id number]] Abnormal Final result Please view results for [...] DEPARTMENT COURSE and DIFFERENTIAL DIAGNOSIS/MDM: Vitals: Vitals: 02/18/247 02/18/242108 BP: 131/77 BP Location: Right arm [...] 02/18/242120) I Rigo Joiner MD am the recovery assistant of record. PROCEDURES: Unless otherwise noted below, [...] Discharge 02/18/2024 10:51:20 PM PATIENT REFERRED TO: [facility] ED [address] [facility] [phone] As needed DISCHARGE MEDICATIONS: New [...] Emergency Medicine Provider Rigo Joiner MD 02/18/24 7060 documented in this [facility]08-27-2024 Hospital Discharge instructions* Discharge Instructions* Rigo Joiner [...] Care Everywhere. * Constipation Discharge Instructions, Adult (Malian) documented in this encounterSCleveland ClinicLzynwh60-37-1125 Emergency department Note* Candelaria Gerard RN - 02/18/2024 9:[address] Joiner at pt bedside. Candelaria Gerard RN 02/18/242108 [facility]izsr35-21-9115 Physician Emergency department Note* Rigo Joiner MD - 02/18/2024 9:00 PM EDT EMERGENCY DEPARTMENT ENCOUNTER Pt Name: Alina Malik Birthdate 2005 Date of evaluation: 02/18/2024 ED Provider: Rigo Joiner MD CHIEF COMPLAINT Chief Complaint Patient presents with Abdominal Pain Pt states she was seen yesterday for same at [facility] and was told she had a uti [...] Single Social Determinants of Health Received from [employer] Received from [employer] Transportation Received from [employer] Interpersonal Safety Received from [employer] Housing/Utilities SCREENINGS PHYSICAL EXAM ED Triage Vitals [02/18/242106] Temp Heart Rate Resp BP 36.8 C [...] Culture. Procedure Abnormality Status --------- ------ Complete Urinalysis[[id number]] Abnormal Final result Please view results for [...] 4 mg (4 mg IntraVENous Given 02/18/242120) David Joiner MD am the recovery assistant of record. PROCEDURES: Unless otherwise noted below, [...] Discharge 02/18/2024 10:51:20 PM PATIENT REFERRED TO: [facility] ED [address] [place] [address] As needed DISCHARGE MEDICATIONS: New Prescriptions [...] signed) Emergency Medicine Provider Rigo Joiner MD 02/18/241 [facility]Dbyrha85-81-8029 Evaluation + Plan note Diagnostic Tests Pending * Urine Culture 02/17/24 [facility] 08-26-2024 Hospital Discharge instructions Patient Education [...] testing. For more information, contact CDC-INFO at [phone]. When to seek medical advice Call your [...] Testicle pain or swelling of the scrotum 9682-8947 [employer]. [address] [place] [address], [place] [address]. All rights reserved. This information is not intended as a substitute for professional medical care. Always follow yourhealthcare professional's instructions. Follow Up Care 02/17/2024 08:50:59 With:NIKKI OLSEN Address: [address] [place] [phone] Business (1) When:5-7 days Comments:Follow-up as needed if symptoms are not improving.Push fluids.Use Tylenol or Advil for pain and fever as needed.Use antibiotic (Keflex) to treat for presumed UTI.Return to the ED if symptoms worsen. [facility] Marthaelisa Hill 08-26-2024 Note Discharge Instructions Thank you for allowing [facility] to assist you with your healthcare needs. The following is importantdischarge information regarding your hospital visit. What to Do Next Instructions from Your Care Team No qualifying data available. Post Acute Orders No qualifying data available. You Need to Schedule the Following Appointments Follow Up with NIKKI OLSEN When:Within 5-7 days Where:[address] [place] [phone]- [phone] Business (1) Additional Information: Follow-up as needed if [...] may report side effects to FDA at 6-714-NRE-1681. What other drugs will affect cephalexin? Tell your doctor about all your other medicines, especially: metformin; or probenecid. This list is not complete. Other drugs may affect cephalexin, including prescription and ksnh-glf-atlyisx medicines, vitamins, and herbal products. Not all [...] to ensure that the information provided by [employer] ('[employer]') is accurate, up-to-date, and complete, but no guarantee is made to that effect. Drug information contained herein may be time sensitive. [employer] information has been compiled for use by healthcare practitioners and consumers in the [place] and therefore [employer] does not warrant that uses outside of the [place] are appropriate, unless specifically indicated otherwise. [employer] drug information does not endorse drugs, diagnose patients or recommend therapy. [employer] drug information isan informational resource designed to [...] effective or appropriate for any given patient. [facility] does not assume any responsibility for any aspect of healthcare administered with the aid of information [facility] provides. The information contained herein is not intended to cover all possible uses, directions, precautions, warnings, drug interactions, allergic reactions, or adverse effects. If you have questions about the drugs you are taking, check with your doctor, nurse or pharmacist. Copyright 5570-3566 [facility] Direct [employer]. Version: .. Revision Date: 01/23/2023. Education Materials Dysuria with [...] testing. For more information, contact CDC-INFO at 934-428-8492. When to seek medical advice Call your [...] Testicle pain or swelling of the scrotum 4748-8483 [employer]. [address] [place], [place] [address]. All rights reserved. This information is not intended as a substitute for professional medical care. Always follow yourhealthcare professional's instructions. Additional Information VACCINATE! IT SAVES LIVES! Members of the community who have not yet received the COVID-19 vaccine and would like to receive it can visit one of [facility] vaccine clinics. There are many vaccine clinic locations within the [facility]. For locations and available times, please visit www.gettheshot.coronavirus.[place].gov/. It is important to note that some COVID mobile vaccine clinics are held outdoors and may be canceled in rainy or stormy conditions. To learn more about pediatric vaccinations (ages 5-11), we invite you to visit the [facility] webpage. https://www.[facility].org/pages/0069-Yekfq-Xnhsvyntxjd-Panzohfjzd-Fkcmy-Jyu stions.htmlTo learn more about the COVID-19 vaccine, we invite you to visit the CDC website for a list of frequently asked questions. https://www.cdc.gov/coronavirus/2019-ncov/vaccines/faq.html [employer] Patient Portal Access Instructions: Stay connected with your healthcare team and access your personal medical information anytime with the [employer] Patient Portal. If you would like a full copy of your medical records please contact the [facility] Medical Records Department Saturday through Saturday between 8a.m. and 4:30p.m. Please follow the directions below to access the portal: 1.Access the email account you provided upon registration to the [facility].2.Look for an invitation email from [facility].3.Open the email and access the invitation link: Accept Invitation to [facility]4.Fill in the required lizarraga to create your account. Sign into [email or web address] with your username and password that you [...] you will allow to register on the [facility] Patient Portal for access to your information. You can also access the [facility] Patient Portal on the [employer] ana paula. Simply click on Health Records under AddressReportta and then click on the [employer] logo. HOW TO SAFELY DISPOSE OF PRESCRIPTION [...] Call your local pharmacy or go to http://[employer]/7K3Vz1s to find one close to you.3.Make use of household items: Use cat litter or old coffee grounds to dispose medications if other options arenot available. Mix your drugs with these household products, seal them in an airtight container andthrow it into the garbage. Call [facility]: [phone] to be sure your drugs can be [...] been reviewed and explained to me and IRADHA KILEY understand my current condition and have read and understand these discharge instructions. I have received a written copy of the plan/instructions. If I have questions, I am aware that I should contact my d octor. Patient/Java Engineer Signature: Date/Time: Relationship to Patient: Witness Name/Signature: Date/Time: [facility]08-26-2024 NoteHNO ID: [id number] Author: SKINNY MOORE APRN.[facility] Service: ? Author Type: Nurse Practitioner Type: [...] treat per c/s, f/u with pcp or loin trimmer if negative. - Patient education for prevention given - UA DIP, URINE (POC) - URINE CULTURE Skinny Moore APRN.[facility]08-26-2024 History of Present illness Narrative* Skinny Moore APRN.[facility] - 02/17/2024 7:57 AM EDT Subjective HPI [...] treat per c/s, f/u with pcp or loin trimmer if negative. - Patient education for prevention given - UA DIP, URINE (POC) - URINE CULTURE Skinny Moore APRN.SLURRY CONTROL TENDER documented in this encounterThe [facility]03-12-2024 Miscellaneous Notes* Telephone Encounter - Sue Ryder MA - 09/03/2023 7:27 AM EDT Patient given results and verbalized understanding of instructions given. Sue Ryder MA * Telephone Encounter - Skinny Moore APRN.CNP - 09/03/2023 7:17 AM EDT Please notify that covid/flu/rsv testing negative. Continue with plan of care as discussed during visit. documented in [facility]03-[facility]-2024 Instructions* Patient Instructions* Siva Herndon APRN.CNP [...] or concerning to you. documented in this encounterThe [facility]03-[facility]-2024 History of Present illness Narrative* Siva [...] of care. This note was generated using [employer] software. It may contain errors in wording, punctuation, or spelling. Siva Herndon APRN.NATHAN documented in this encounterThe [facility]03-09-2024 NoteHNO ID: [id number] Author: NOTE, INTERFACE, ? Service: ? Author Type: ? Type: Progress Notes Filed: 08/31/2023 03:42 Note Text: Epic Scheduled Downtime: 08/31/2023 1:00:00 AM to 08/31/2023 3:24:00 [facility] History of Present illness Narrative* Bhavani Cross PA - 08/26/2023 1:38 PM EST 18-year-old [...] room. She understands. She will go to [facility] now. She declines EMS. documented in this encounterThe [facility]06-23-2023 History of Present illness Narrative* Tatiana Nieves APRN.SLURRY CONTROL TENDER - 12/14/2022 1:07 PM EDT Images from the original note were not included. Rheumatology CONSULTATION Referring Provider: Self Date of Service: 12/14/2022 Gender: female Ethnicity: White Age: [age] year old Chief Complaint: Consult Last Rheumatology visit: [facility] at [facility] Alina Malik is a 17 year [...] years of pain. 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 Exercise almaguer- not on exercise [...] depth She is working with mental health MARINE TOWER OPERATOR and is on treatment. Will consult to [...] FACTOR BL, CCP ANTIBODY IGG, SED RATE WESTDESHAUNREN, C-REACTIVE PROTEIN (CRP), CONSULT TO CENTER FOR [...] which included preparing to see the patient, kajj-fk-zuar patient care, completing clinical documentation, obtaining and/or reviewing separately obtained history, performing a medically appropriate examination, and counseling and educating the patient/family/caregiver. Tatiana Nieves APRN.SLURRY CONTROL TENDER cc: PCP: Nikki Olsen [address] [place] [address] [facility] History of Present illness Narrative* Genevieve [...] MD Department of Orthopaedics Orthopaedics [address] [facility] [address] Dept: [phone] Dept June 14, 2022 CHIEF COMPLAINT: New [...] Patient isright hand dominant. 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 Interrelated Special Education Teacher: VIOLETTA Transcribe Date/Time: May 14 2022 5:02P [...] physician via US mail. Beth Aguirre [address] [facility] [address] [facility] [address] [facility] [address] Juan Gates MD documented in [facility] encounterThe [facility] History of Present illness Narrative* Roberta Spence - 05/24/2022 1:31 PM EST POPULATION HEALTH NAVIGATION OUTREACH Action/FYI Pt scheduled Pt identified by name and : YES, via phone Outreach Outcome/Action Spoke to patient or caregiver: Patient scheduled Did you use a PCP flex slot to schedule this appointment? No Reason for Outreach Care Gap or Scheduling/Wellness visits Payer: Payor: [facility] MEDICAID / Plan: [facility] MEDICAID / Product Type: Medicaid / Care [...] 24, 2022 1:31 PM documented in [facility]The [facility] Instructions* Patient Instructions* Beth Aguirre PA-C [...] pillows when lying down. 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 Notes that it's typically 4/10 on the pain scale but becomes ~7/10 on the pain scale. Was seen at [facility] on Saturday, and they said they [...] plan. Beth Aguirre PA-C [facility] Future Appointments Appointment Date:07/29/2024 01:00:00 PM Scheduled Provider: Location:[facility] Appointment Type:VL - Venous US/Doppler One Leg (for DVT) [facility] Evaluation noteNo assessment information available [facility] Work Phone: evaluation note* Diagnosis Onset Date Resolution Status Gall stone acute Gastritis acute [facility] Work Phone: Evaluhjnml note* Diagnosis Right wrist pain- Primary Pain in joint, forearm documented in this 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 note* Diagnosis Fibromyalgia- Primary Mylagia and myositis, unspecified documented in this [facility] note* Diagnosis Headache, unspecified headache type- Primary documented in this [facility] note* Diagnosis Viral illness- Primary Unspecified viral infection, in conditions classified elsewhere and of unspecified site documented in this [facility] note* Diagnosis Urinary frequency- Primary documented [facility] this [facility] note* Diagnosis Constipation, unspecified constipation type- Primary documented in this encounter [facility] note* Diagnosis Procedure not carried out- Primary Procedure not carried out for other reasons documented [facility] this [facility] note* Diagnosis Bilateral leg edema- Primary Edema Tachycardia Tachycardia, unspecified SOB (shortness of breath) Shortness of breath Nausea Nausea alone [facility] encounter [facility] Narrative No data available for this section [facility] Hospital Discharge instructions Additional Instructions Please [...] the ER should you have any further concerns.[facility] Work Phone: [facility] Work Phone: [facility] Work Phone[facility]WP[facility] Work Phone: Hospital Discharge instructions Additional Instructions Please follow-up with your family doctor to discuss starting antianxiety medications and return to the ER should you have any further concernsWParkwood Hospital Work Phone: Hospital Discharge instructions No data available for this section [facility] Progress note No data available for this section [facility] Reason for visit Narrative* Diagnostic Procedure Only (Urgent) - Closed Specialty Diagnoses / Procedures Referred By Contac t Referred To Contact XR IMAGING Diagnoses Right wrist pain Procedures XR WRIST GENERAL 3V PA/LAT/OBL RIGHT RADEX WRIST COMPLETE MINIMUM 3 VIEWS Beth Aguirre, PA-C [address] [place] [address] [place] [id number] Referral ID Status Reason Start Date Expiration Date V isits Requested Visits Authorized [id number] Closed Auto-Generate d Referral 05/14/2022 06/13/2023 1 1 [facility] Summary Purpose Family History No Family History Records Found Relationship Condition Age at Onset Recorded Date/T nel mother Hypertension Unknown Seizure Unknown grandmother Malignant neoplasm of breast Unknown Malignant neoplasm Unknown Advance Directives No Advanced Directives Records Found Advance Directive Response Recorded Date/ Time Living Will No October 01, 2021 1:22am Power of Company Laundry Worker No October 01 1:22am Advance Directive Response Recorded Date/ Time Living Will No December 12, 2021 10:49am Power of Company Laundry Worker No December 12 10:49am Advance Directive Response Recorded Date/ Time Living Will No December 17, 2021 2:52am Power of Company Laundry Worker No December 17 2:52am Advance Directive Response Recorded Date/ Time Living Will No May 07 11:32pm Power of Company Laundry Worker No May 07, 2022 11:32pm Advance Directive Response Recorded Date/ Time Living Will No July 09 12:22am Power of Company Laundry Worker No July 09, 2022 12:22am Chief Complaint [...] Referral Specialty Diagnoses / Procedures Referred By Contac t Referred To Contact Orthopedics Diagnoses Right wrist pain Procedures CONSULT TO ORTHOPAEDICS OFFICE/OUTPATIENT [facility] 60-74 MINUTES Beth Aguirre PA-C [address] [place] [address] Referral ID Status Reason Start Date Expiration Date Visits Requested Visits Authorized [id number] Authorized PCP Requested Referral 2 05/14/2023 1 1 Specialty Diagnoses / Procedures Referred By Contac t Referred To Contact XR IMAGING Diagnoses Right wrist pain Procedures XR WRIST GENERAL 3V PA/LAT/OBL RIGHT RADEX WRIST COMPLETE MINIMUM 3 VIEWS Beth Aguirre PA-C [address] [place] [address] Xr Imaging Referral ID Status Reason Start Date Expiration Date V isits Requested Visits Authorized [id number] Closed Auto-Generate d Referral 05/14/2022 06/13/2023 1 1 Specialty Diagnoses / Procedures Referred By Contac t Referred To Contact [facility] [place] Diagnoses Fibromyalgia Procedures CONSULT TO [facility]) OFFICE/OUTPATIENT [facility] 60-74 MINUTES Tatiana Nieves, BUDGET REPORT CLERK.SLURRY CONTROL TENDER [address] [facility] [place] [address] Referral ID Status Reason Start Date Expiration Date Visits Requested Visits Authorized [id number] Pending Review PCP Requested Referral 12/14/2022 12/14/2023 1 1 Health Concerns Infection Onset Date Last Indicated Resolved Time COVID-19 Rule-Out 09/02/2023 09/02/2023 Infection Onset Date Last Indicated Resolved Time COVID-19 Rule-Out 09/02/2023 09/02/2023 09/03/2023 4:17 AM EDT Additional Source Comments INFORMATION SOURCE (unrecogn ized section and content) DATE CREATED AUTHOR 04/16/2018 [facility] DATE CREATED AUTHOR AUTHOR'S ORGANIZ ATION 09/01/2023 [facility] DATE CREATED AUTHOR AUTHOR'S ORGANIZ ATION 02/20/2024 [facility] DATE CREATED AUTHOR AUTHOR'S ORGANIZ ATION 02/22/2024 [facility] ([place]) DATE CREATED AUTHOR AUTHOR'S ORGANIZ ATION 05/04/2024 [facility] DATE CREATED AUTHOR AUTHOR'S ORGANIZ ATION 08/11/2024 [facility] DATE CREATED AUTHOR AUTHOR'S ORGANIZ ATION 11/18/2024 [facility] DATE CREATED AUTHOR AUTHOR'S ORGANIZ ATION 12/02/2024 [facility] Goals (unrecognized section and content) Goals may [...] or prosecute any alcohol or drug abuse patient.[facility] HospitalIn the event this information is protected by the Federal Confidentiality of Alcohol and Drug Abuse Patient Records regulations: The Federal rules restrict any use of the information to criminally investigate or prosecute any alcohol or drug abuse patient.[facility] HospitalIn the event this information is protected by the Federal Confidentiality of Alcohol and Drug Abuse Patient Records regulations: The Federal rules restrict any use of the information to criminally investigate or prosecute any alcohol or drug abuse patient.[facility] HospitalIn the event this information is protected by the Federal Confidentiality of Alcohol and Drug Abuse Patient Records regulations: The Federal rules restrict any use of the information to criminally investigate or prosecute any alcohol or drug abuse patient.[facility] HospitalIn the event this information is protected by the Federal Confidentiality of Alcohol and Drug Abuse Patient Records regulations: The Federal rules restrict any use of the information to criminally investigate or prosecute any alcohol or drug abuse patient.[facility] HospitalIn the event this information is protected by the Federal Confidentiality of Alcohol and Drug Abuse Patient Records regulations: The Federal rules restrict any use of the information to criminally investigate or prosecute any alcohol or drug abuse patient.[facility] HospitalIn the event this information is protected by the Federal Confidentiality of Alcohol and Drug Abuse Patient Records regulations: The Federal rules restrict any use of the information to criminally investigate or prosecute any alcohol or drug abuse patient.[facility] HospitalIn the event this information is protected by the Federal Confidentiality of Alcohol and Drug Abuse Patient Records regulations: The Federal rules restrict any use of the information to criminally investigate or prosecute any alcohol or drug abuse patient.[facility] HospitalIn the event this information is protected by the Federal Confidentiality of Alcohol and Drug Abuse Patient Records regulations: The Federal rules restrict any use of the information to criminally investigate or prosecute any alcohol or drug abuse patient.[facility] HospitalIn the event this information is protected by the Federal Confidentiality of Alcohol and Drug Abuse Patient Records regulations: The Federal rules restrict any use of the information to criminally investigate or prosecute any alcohol or drug abuse patient.[facility] HospitalIn the event this information is protected by the Federal Confidentiality of Alcohol and Drug Abuse Patient Records regulations: The Federal rules restrict any use of the information to criminally investigate or prosecute any alcohol or drug abuse patient.[facility] Reason for Visit (unrecogniz ed section and content) Reason Comments Wrist Pain R wrist pain x1 year , worse last few days Reason Comments New Pain Referred by Beth Aguirre Specialty Diagnoses / Procedures Referred By Adeel triana Referred To Contact Orthopedics Diagnoses Right wrist pain Procedures CONSULT TO ORTHOPAEDICS OFFICE/OUTPATIENT NEW HIGH MDM 60-74 MINUTES Beth Aguirre PA-C [address] [place] [address] Referral ID Status Reason Start Date Expiration Date V isits Requested Visits Authorized [id number] Closed PCP Requested Referral 05/14/2022 05/14/2023 1 1 Reason Comments Consult Reason Comments Headache SILVER x 1 week Reason Comments Neck Pain Fatigue, weak, chill s, body aches, head in a fog x 1 week Reason Comments Results Reason Comments Urinary Frequency urgency x couple wee ks Reason Comments Abdominal Pain Pt states she was se en yesterday for same at [facility] and was told she had a uti and discharged. Pt states today the pain has worsened in her RLQ around to her back 10 & sharp/cramping in nature. 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 Relationship Specialty Start Date End Date [facility] [address] [place] [id number] PCP - General 02/28/22 [employer] Cutting Machine Operator Relationship Specialty Start Date End Date Clinic, [facility] More[place] [place] [address] PCP - General 02/28/22 [employer] Cutting Machine Operator Relationship Specialty Start Date End Date [facility], [facility]ukhsana Moreno[address] [place] [address] PCP - General 02/28/22 [employer] Cutting Machine Operator Relationship Specialty Start Date End Date Nikki Olsen NP [address] [place] [address] PCP - General Family Medicine 10/10/22 [employer] Cutting Machine Operator Relationship Specialty Start Date End Date Nikki Olsen NP [address] [place] [phone] PCP - General Family Medicine 10/10/22 [employer] Cutting Machine Operator Relationship Specialty Start Date End Date Nikki Olsen NP [address] [place] [phone] PCP - General Family Medicine 10/10/22 [employer] Cutting Machine Operator Relationship Specialty Start Date End Date Nikki Olsen NP [address] [place] [phone] PCP - General Family Medicine 10/10/22 [employer] Cutting Machine Operator Relationship Specialty Start Date End Date Nikki Olsen NP [address] [place] [phone] PCP - General Family Medicine 10/10/22 [employer] Cutting Machine Operator Relationship Specialty Start Date End Date AdenRukhsana PCP - General 02/28/22 10/09/22 [employer] Cutting Machine Operator Relationship Specialty Start Date End Date Nikki Olsen NP [address] [place] [phone] PCP - General Family Medicine 10/10/22 Nikki Olsen NP [address] [place], [place] [id number] Referring Family Medicine 03/27/24 [employer] Cutting Machine Operator Relationship Specialty Start Date End Date Nikki Olsen NP [address] [place] [phone] PCP - General Family Medicine 10/10/22 Nikki Olsen NP [address] [place], [place] [address] Referring Family Medicine 03/27/24 Scheduled Active and [...] On Sat02/18/24 at 2115, For 1 dose 2120 (New Bag - [...] BE BASED ON THE PRIMARY CLINICAL RECORDS. [facility]. provides no warranty or guarantee of the accuracy or completeness of information in this document.
== END | disposition home or self-care (01) ==
LOC: OPMRI 07:03
PROVIDERS: PCP Nurse Practitioner Family; Referring Provider Nurse Practitioner Family; Visit Provider Nurse Practitioner Family
DX: R27.8 Other lack of coordination (principal); R20.2 Paresthesia of skin; R53.83 Other fatigue
CPT/HCPCS: 70553; A9575

== ENCOUNTER → 2024-12-11 | Outpatient (CLI) | payer OTHER, MEDICAID, SELFPAY ==
--- OUTSIDE RECORDS SUMMARY | 2024-12-11 19:32 | XMS RPT_ITS | CCD ---
Author Organization [facility] Care Team Providers Care Communications Specialist Name Role Phone DEANN MANUEL Unavailable Unavailable REFERRED, SELF Unavailable Unavailable DEANN MANUEL Unavailable Unavailable Dr. Rukhsana Luz Primary Care Provider Dr. Rukhsana Luz Referring Provider [facility] Attending Provider Clinic, Rukhsana Luz Primary Care Provider Un available Raúl SENIOR IT SECURITY ANALYST, Nikki Primary Care Provider Raúl SENIOR IT SECURITY ANALYST, Nikki Primary Care Provider [phone] RAÚL, NIKKI Primary Care Unavailable ANDREW DELGADILLO Attending Unavailable RAÚL, NIKKI Primary Care Unavailable Raúl SENIOR IT SECURITY ANALYST, Nikki Primary Care Provider [phone] RAÚL INSERTER PROMOTIONAL ITEM-ELECTRICIAN JOURNEYMAN WIREMAN, NIKKI Primary Care Physicia n Unavailable Primary Care Provider Unavailabl e RIGO JOINER Referring Unavailable RIGO JOINER Attending Unavailable CLARISSE BRODY MD Attending Unavailable RAÚL INSERTER PROMOTIONAL ITEM-ELECTRICIAN JOURNEYMAN WIREMAN, NIKKI Primary Care Unava ilable Clinic, Rukhsana Luz Primary Care Provider Un available Raúl SENIOR IT SECURITY ANALYST, Nikki Unavailable CARLOTA CHOW DO Admitting Unavailable CARLOTA CHOW DO Attending Unavailable CARLOTA CHOW DO Primary Care Unavailable RAÚL INSERTER PROMOTIONAL ITEM-ELECTRICIAN JOURNEYMAN WIREMAN, NIKKI Primary Care Unava ilable ANDREA CARTER DO Attending Unavailable ANDREA CARTER DO Attending Unavailable RAÚL INSERTER PROMOTIONAL ITEM-ELECTRICIAN JOURNEYMAN WIREMAN, NIKKI Primary Care Unava ilable RAÚL, NIKKI Primary Care Unavailable RAÚL, NIKKI Primary Care Unavailable RAÚL, NIKKI Primary Care Unavailable Raúl VSC, Nikki Attending Unavailabl e Raúl VSC, Nikki Referring Unavailabl e Raúl VSC, [facility] Primary Care Unavailabl e Raúl VSC, [facility] Primary Care Unavailabl e Beam VSC, Zebulun Attending Unavailable Beam VSC, Zebulun Referring Unavailable Raúl VSC, [facility] Primary Care Unavailabl e Beam VSC, Zebulun Attending Unavailable Raúl VS, [facility] Primary Care Unavailabl e Beam VSC, Zebulun Attending Unavailable Beam VSC, Zebulun Referring Unavailable Raúl [facility], [facility] Primary Care Unavailabl e Tannhof, Eneida Referring Unavailable Tannhof, Eneida Attending Unavailable [facility], [facility] Primary Care Unavailabl e Remy Sawyer Attending Unavailable Tom Villar Attending Unavailable [facility], [facility] Primary Care Unavailabl e Raúl VSC, [facility] Primary Care Unavailabl e Remy Sawyer Attending Unavailable [facility], [facility] Primary Care Unavailabl e Kenny, Mercedes Referring Unavailable Mercedes Cox Attending Unavailable [facility], [facility] Primary Care Unavailabl e Tannhof Eneida Referring Unavailable Vinnyhof Eneida Attending Unavailable [facility], [facility] Primary Care Unavailabl e Beam VSC, Zebulun Attending Unavailable Beam VSC, Zebulun Referring Unavailable [facility], [facility] Primary Care Unavailabl e Beam VSC, Zebulun Attending Unavailable Raúl VS, [facility] Attending Unavailabl e Raúl VSC, [facility] Referring Unavailabl e Raúl VSC, [facility] Primary Care Unavailabl e Beam VSC, Zebulun Attending Unavailable Beam VSC, Zebulun Referring Unavailable Raúl [facility], [facility] Primary Care Unavailabl e Raúl SENIOR IT SECURITY ANALYST, Nikki Referring Unavailable [place] SENIOR IT SECURITY ANALYSTShannon Attending Unavailable Raúl VS, [facility] Primary Care Unavailabl e Raúl VSC, Nikki Referring Unavailabl e Corina Clay Attending Unavailabl e Raúl VSC, [facility] Primary Care Unavailabl e Shan Brody Attending Unavailable [facility], [facility] Primary Care Unavailabl e Raúl VSC, Nikki Attending Unavailabl e Raúl VSC, Nikki Referring Unavailabl e Raúl VSC, [facility] Primary Care Unavailabl e Champlandany, Mercedes Referring Unavailable Gabriel Coxma Attending Unavailable Raúl C, [facility] Primary Care Unavailabl e Raúl [facility], [facility] Primary Care Unavailabl e Beam [facility], Cristo Attending Unavailable Beam [facility], [place] Referring Unavailable [facility], Nikki Attending Unavailabl e Raúl VS, [facility] Primary Care Unavailabl e Raúl VS, [facility] Primary Care Unavailabl e Raúl VS, Nikki Referring Unavailabl e Yesika Talley Attending Unavailable Raúl [facility], [facility] Referring Unavailabl e Raúl VS, [facility] Primary Care Unavailabl e Mahad Cárdenas Attending Unavailable Christian Hale Attending Unavailable Raúl [facility], [facility] Primary Care Unavailabl e Raúl VSC, [facility] Primary Care Unavailabl e Raúl VS, [facility] Referring Unavailabl e Scott Lopez Attending Unavailable [facility], [facility] Primary Care Unavailabl e Ricky Pillai Attending Unavailable Beam VS, [place] Consulting Unavailable Beam [facility], [place] Referring Unavailable [facility], [facility] Primary Care Unavailabl e Remy Sawyer Attending Unavailable [facility], [facility] Primary Care Unavailabl e Arvin Segundo Attending Unavailabl e Allergies Allergy Classification Reported Allergen(s) Allergy Type Date of Onset Reaction(s) Facility (18 sources) buPROPion; Translations: [BUPROPION] Drug Allergy 06-14-2022 [facility] Work Phone: (1 source) buPROPion Drug Allergy [facility] Repository (1 source) buPROPion Drug Allergy 11-27-2024 [facility] Repository Medications Current Medications Medication Drug Class(es) [...] as needed for pain polyethylene glycol 3350 56031 mg powder for oral solution (2 sources) [...] Comment on above: Take 1 tablet by [facility] once daily. sertraline 50 mg oral [...] Translations: [Constipation, unspecified] Onset: 02-18-2024 Episodic Other lower respiratory disease (1 source) Dyspnea; Translations: [Shortness of breath] 07-10-2024 Episodic Other nervous system disorders (2 sources) Paresthesia of skin; Translations: [Paresthesia of skin] Onset: 12-02-2024 Episodic Other nervous system disorders (1 source) Other lack of coordination; Translations: [Other lack of coordination] Onset: 12-02-2024 Episodic Other non-traumatic joint disorders (1 source) [...] Test Name Value Interpretation Reference Range Facility Brain W/WO Contraston 2024 Brain W/WO Contrast [facility] Imaging Services [address] [place] [id number] Brain W/WO Contrast MR#: [id number] Acct: [id number] Name: ALINA MALIK Rep #: [id number] : 2005 F 19 From: Aston Campbell MD PCP: Nikki Olsen [facility], SENIOR IT SECURITY ANALYST-C Status: REG CLI Study: Brain W/WO Contrast Date of Exam: 12/02/24 Exam# [id number] Ordering Dr: Eneida Echeverria SENIOR IT SECURITY ANALYST-C PROCEDURE: BRAIN W/WO CONTRAST 12/02/2024 REASON FOR EXAM: MS, ON GOING FATIGUE, BALANCE ISSUES TECHNIQUE: Routine brain MRI without and with intravenous contrast. Multiplanar and multisequence images were obtained. CONTRAST: Clariscan VOLUME: 27 mL COMPARISON: None available. FINDINGS: Brain: Normal signal intensities. No evidence of acute hemorrhage or infarction. Diffusion: Normal. Ventricles: Normal. Sinuses: Clear. Mastoids: Clear. No abnormal intracranial enhancement. MRI/Brain W/WO Contrast IMPRESSION: No significant abnormal signal intensities within the brain. No abnormal intracranial enhancement. Reading Location: [id number] CC: JACKELIN Echeverria; [facility] JACKELIN Olsen Childcare Teacher: Signed Normal [facility] Vitamin D 1,25-Dihydroxyon 0 12-02-2024 VIT D 1,25 DIHY 33.0 pg/mL Normal 24.8-81.5 [facility] Comment on above: Result Comment: Perf ormed at: [facility] [id number] Credit Intern: Alfredo Jones MD, Phone: [phone] Performed By: #### L 501.2450, L501.5200, L500.3400, L500.2500, L100.0100, L700.6800 #### [facility] [address] [place], [place], [id number] Thyroid Peroxidase ABon 06-1 -2024 THYR PEROX AB < 9 Normal 0-34 [facility] Comment on above: Result Comment: Perf ormed at: [facility] [address] [id number] Credit Intern: Que Cruz PhD, Phone: [phone] Performed By: #### L 501.2450, L501.5200, L500.3400, L500.2500, L100.0100, L700.6800 #### [facility] [address] [place], [place], [id number] CBC W/Diff, Automatedon 06-0 -2024 Absolute Lymph 4.28 X10 3/uL Normal 0.83-4.51 [facility] Comment on above: Performed By: #### L 501.2450, L501.5200, L500.3400, L500.2500, L100.0100, L700.6800 #### [facility] [address] [place], [address] Absolute Neut 6.2 X10 3/uL Normal 2.0-7.7 [facility] Comment on above: Performed By: #### L 501.2450, L501.5200, L500.3400, L500.2500, L100.0100, L700.6800 #### [facility] [address] [place], [address] Basophils/100 WBC (Bld) 0.5 % Normal 0-1 [facility] Comment on above: Performed By: #### L 501.2450, L501.5200, L500.3400, L500.2500, L100.0100, L700.6800 #### [facility] [address] [place], [address] Eosinophils/100 WBC (Bld) 3.4 % Normal 0-5 [facility] Comment on above: Performed By: #### L 501.2450, L501.5200, L500.3400, L500.2500, L100.0100, L700.6800 #### [facility] [address] [place], [address] Erythrocyte distribution width (RBC) [Ratio] 14.1 % Normal 11.6-14.6 [facility] Comment on above: Performed By: #### L 501.2450, L501.5200, L500.3400, L500.2500, L100.0100, L700.6800 #### [facility] [address] [place], [address] Hematocrit (Bld) [Volume fraction] 36.4 % Low 37-47 [facility] Comment on above: Performed By: #### L 501.2450, L501.5200, L500.3400, L500.2500, L100.0100, L700.6800 #### [facility] [address] [place], [address] Hemoglobin (Bld) [Mass/Vol] 12.3 g/dL Normal 12.0-15.0 [facility] Comment on above: Performed By: #### L 501.2450, L501.5200, L500.3400, L500.2500, L100.0100, L700.6800 #### [facility] [address] [place], [address] IG% 0.400 Normal 0.0-0.9 [facility] Comment on above: Result Comment: IG% - Immature Granulocytes (promyelocytes, myelocytes and metamyelocytes) > 1% indicates that a LEFT SHIFT is Present. Performed By: #### L 501.2450, L501.5200, L500.3400, L500.2500, L100.0100, L700.6800 #### [facility] [address] [place], [address] Lymphocytes/100 WBC (Bld) 37.4 % Normal 19-41 [facility] Comment on above: Performed By: #### L 501.2450, L501.5200, L500.3400, L500.2500, L100.0100, L700.6800 #### [facility] [address] [place], [address] MCH (RBC) [Entitic mass] 27.7 pg Normal 27.0-32.0 [facility] Comment on above: Performed By: #### L 501.2450, L501.5200, L500.3400, L500.2500, L100.0100, L700.6800 #### [facility] [address] [place], [address] MCHC (RBC) [Mass/Vol] 33.8 g/dL Normal 32-36 [facility] Comment on above: Performed By: #### L 501.2450, L501.5200, L500.3400, L500.2500, L100.0100, L700.6800 #### [facility] [address] [place], [address] MCV (RBC) [Entitic vol] 82.0 fL Normal 81-99 [facility] Comment on above: Performed By: #### L 501.2450, L501.5200, L500.3400, L500.2500, L100.0100, L700.6800 #### [facility] [address] [place], [address] Monocytes/100 WBC (Bld) 4.1 % Normal 0-10 [facility] Comment on above: Performed By: #### L 501.2450, L501.5200, L500.3400, L500.2500, L100.0100, L700.6800 #### [facility] [address] [place], [address] Neutrophils/100 WBC (Bld) 54.2 % Normal 47-70 [facility] Comment on above: Performed By: #### L 501.2450, L501.5200, L500.3400, L500.2500, L100.0100, L700.6800 #### [facility] [address] [place], [address] Nucleated RBC (Bld) [#/Vol] 0 10*3/uL Normal 0-5 [facility] Comment on above: Performed By: #### L 501.2450, L501.5200, L500.3400, L500.2500, L100.0100, L700.6800 #### [facility] [address] [place], [address] Platelet mean volume (Bld) [Entitic vol] 9.1 fL Normal 6.2-12.0 [facility] Comment on above: Performed By: #### L 501.2450, L501.5200, L500.3400, L500.2500, L100.0100, L700.6800 #### [facility] [address] [place], [address] Platelets (Bld) [#/Vol] 338 10*3/uL Normal 150-450 [facility] Comment on above: Performed By: #### L 501.2450, L501.5200, L500.3400, L500.2500, L100.0100, L700.6800 #### [facility] [address] [place], [address] RBC (Bld) [#/Vol] 4.44 10*6/uL Normal 4.2-5.4 [facility] Comment on above: Performed By: #### L 501.2450, L501.5200, L500.3400, L500.2500, L100.0100, L700.6800 #### [facility] [address] [place], [address] RDW SD 41.4 fl Normal 35.1-43.9 [facility] Comment on above: Performed By: #### L 501.2450, L501.5200, L500.3400, L500.2500, L100.0100, L700.6800 #### [facility] [address] [place], [address] WBC (Bld) [#/Vol] 11.5 10*3/uL High 4.4-11.0 [facility] Comment on above: Performed By: #### L 501.2450, L501.5200, L500.3400, L500.2500, L100.0100, L700.6800 #### [facility] [address] [place], [address] Comprehensive Metabolic Prof ilon 11-30-2024 Albumin [Mass/Vol] 4.0 g/dL Normal 3.5-5.0 [facility] Comment on above: Performed By: #### L 501.2450, L501.5200, L500.3400, L500.2500, L100.0100, L700.6800 #### [facility] [address] [place], [address] Albumin/Globulin [Mass ratio] 1.4 {ratio} Normal 0.9-2.4 [facility] Comment on above: Performed By: #### L 501.2450, L501.5200, L500.3400, L500.2500, L100.0100, L700.6800 #### [facility] [address] [place], [address] ALK PHOS 121 U/L High 35-104 [facility] Comment on above: Performed By: #### L 501.2450, L501.5200, L500.3400, L500.2500, L100.0100, L700.6800 #### [facility] [address] [place], [address] ALT [Catalytic activity/Vol] 22 U/L Normal <=34 [facility] Comment on above: Performed By: #### L 501.2450, L501.5200, L500.3400, L500.2500, L100.0100, L700.6800 #### [facility] [address] [place], [address] AST [Catalytic activity/Vol] 27 U/L Normal <=31 [facility] Comment on above: Performed By: #### L 501.2450, L501.5200, L500.3400, L500.2500, L100.0100, L700.6800 #### [facility] [address] [place], [address] Bilirubin [Mass/Vol] 0.42 mg/dL Normal 0.00-1.30 [facility] Comment on above: Performed By: #### L 501.2450, L501.5200, L500.3400, L500.2500, L100.0100, L700.6800 #### [facility] [address] [place], [address] BUN/CRE 15.1 RATIO Normal 10-20 [facility] Comment on above: Performed By: #### L 501.2450, L501.5200, L500.3400, L500.2500, L100.0100, L700.6800 #### [facility] [address] [place], [address] Calcium [Mass/Vol] 9.5 mg/dL Normal 7.6-11.0 [facility] Comment on above: Performed By: #### L 501.2450, L501.5200, L500.3400, L500.2500, L100.0100, L700.6800 #### [facility] [address] [place], [address] Chloride [Moles/Vol] 105 mmol/L Normal 98-108 [facility] Comment on above: Performed By: #### L 501.2450, L501.5200, L500.3400, L500.2500, L100.0100, L700.6800 #### [facility] [address] [place], [address] CO2 [Moles/Vol] 22.2 mmol/L Normal 21.0-32.0 [facility] Comment on above: Performed By: #### L 501.2450, L501.5200, L500.3400, L500.2500, L100.0100, L700.6800 #### [facility] [address] [place], [address] Creatinine [Mass/Vol] 0.70 mg/dL Normal 0.70-1.20 [facility] Comment on above: Performed By: #### L 501.2450, L501.5200, L500.3400, L500.2500, L100.0100, L700.6800 #### [facility] [address] [place], [address] GAP 12 Normal 5-15 [facility] Comment on above: Performed By: #### L 501.2450, L501.5200, L500.3400, L500.2500, L100.0100, L700.6800 #### [facility] [address] [place], [address] GFR/1.73 sq M.predicted among non-blacks MDRD (S/P/Bld) [Vol rate/Area] 125 mL/min/{1.73_m2} Normal >60 [facility] Comment on above: Result Comment: mL/m in/1.73m2 CKD-EPI Creatinine Equation (2020) Performed By: #### L 501.2450, L501.5200, L500.3400, L500.2500, L100.0100, L700.6800 #### [facility] [address] [place], [address] Globulin (S) [Mass/Vol] 2.8 g/dL Normal 2.2-4.2 [facility] Comment on above: Performed By: #### L 501.2450, L501.5200, L500.3400, L500.2500, L100.0100, L700.6800 #### [facility] [address] [place], [address] Glucose [Mass/Vol] 95 mg/dL Normal 70-99 [facility] Comment on above: Performed By: #### L 501.2450, L501.5200, L500.3400, L500.2500, L100.0100, L700.6800 #### [facility] [address] [place], [address] Potassium [Moles/Vol] 3.8 mmol/L Normal 3.3-5.1 [facility] Comment on above: Performed By: #### L 501.2450, L501.5200, L500.3400, L500.2500, L100.0100, L700.6800 #### [facility] [address] [place], [address] Sodium [Moles/Vol] 139 mmol/L Normal 133-145 [facility] Comment on above: Performed By: #### L 501.2450, L501.5200, L500.3400, L500.2500, L100.0100, L700.6800 #### [facility] [address] [place], [address] T PROT 6.9 g/dL Normal 5.9-8.4 [facility] Comment on above: Performed By: #### L 501.2450, L501.5200, L500.3400, L500.2500, L100.0100, L700.6800 #### [facility] [address] [place], [address] Urea nitrogen [Mass/Vol] 11 mg/dL Normal 4-19 [facility] Comment on above: Performed By: #### L 501.2450, L501.5200, L500.3400, L500.2500, L100.0100, L700.6800 #### [facility] [address] [place], [address] Ferritinon 11-30-2024 Ferritin [Mass/Vol] 32 ng/mL Normal 22-378 [facility] Comment on above: Performed By: #### L 501.2450, L501.5200, L500.3400, L500.2500, L100.0100, L700.6800 #### [facility] [address] [place], [address] Folates,Serum (Folic Acid)on 11-30-2024 FOLATES,SERUM 6.13 ng/mL Normal 4.60-34.80 [facility] Comment on above: Order Comment: N Performed By: #### L 501.2450, L501.5200, L500.3400, L500.2500, L100.0100, L700.6800 #### [facility] [address] [place], [address] Free T3on 11-30-2024 Free T3 [Mass/Vol] 3.1 pg/mL Normal 2.18-3.98 [facility] Comment on above: Performed By: #### L 501.2450, L501.5200, L500.3400, L500.2500, L100.0100, L700.6800 #### [facility] [address] [place], [address] Iron+Iron Binding Capacityon 11-30-2024 Iron [Mass/Vol] 34 ug/dL Low 50-170 [facility] Comment on above: Performed By: #### L 501.2450, L501.5200, L500.3400, L500.2500, L100.0100, L700.6800 #### [facility] [address] [place], [address] IRON SATURATION 11.0 Low 13-59 [facility] Comment on above: Performed By: #### L 501.2450, L501.5200, L500.3400, L500.2500, L100.0100, L700.6800 #### [facility] [address] [place], [address] TIBC 307 ug/dL Normal 250-450 [facility] Comment on above: Performed By: #### L 501.2450, L501.5200, L500.3400, L500.2500, L100.0100, L700.6800 #### [facility] [address] [place], [address] UIBC 273 ug/dL Normal 228-428 [facility] Comment on above: Performed By: #### L 501.2450, L501.5200, L500.3400, L500.2500, L100.0100, L700.6800 #### [facility] [address] [place], [address] T4 Free Directon 11-30-2024 T4 FREE DIRECT 1.00 ng/dL Normal 0.76-1.46 [facility] Comment on above: Performed By: #### L 501.2450, L501.5200, L500.3400, L500.2500, L100.0100, L700.6800 #### [facility] [address] [place], [address] Thyroid Stim Hormone (TSH)on 11-30-2024 TSH 4.130 uIU/mL Normal 0.300-4.200 [facility] Comment on above: Performed By: #### L 501.2450, L501.5200, L500.3400, L500.2500, L100.0100, L700.6800 #### [facility] [address] [place], [place], [address] Vitamin B12on 11-30-2024 Cobalamin (Vitamin B12) [Mass/Vol] 819 pg/mL Normal 180-914 [facility] Comment on above: Performed By: #### L 501.2450, L501.5200, L500.3400, L500.2500, L100.0100, L700.6800 #### [facility] [address] [place], [place], [address] Urgent Care Visit Reporton 0 11-27-2024 Urgent Care Visit Report [facility] [address], [address] [place], [place] [address] OFFICE VISIT Date of Service: 11/27/24 MR#: [id number] Acct: [id number] Name: ALINA MALIK Rep #: [id number] : 2005 Provider: MONICA Valles Age/Sex: 19/F Location: [facility] Status: Signed Intake [...] and abdominal pain that is upper abdominal. [facility] Medical History EP (ectopic ) Palpitations Wears [...] Exam Const General: cooperative and healthy appearing HENKS Head: normocephalic and atraumatic Ears: hearing grossly [...] promethazine 25 (more content not included)... Normal [facility] Kendrick 11-11-2024 CNPN Telephone (CARLOS) ALINA MALIK ([id number]) 1 F Date Time Provider Department 11/11/24 MICAELA AGARWAL JR During your visit today, we recorded the following information about you: Logan Watson LPN 11/11/2024 9:24 AM Signed Referral from [facility]. Pt records scanned into chart. Logan Watson [...] Status:Closed by LOGAN WATSON on 11/11/24 Normal [facility] CBC W/Diff, Automatedon 04- Absolute Lymph 4.17 X10 3/uL Normal 0.83-4.51 [facility] Comment on above: Performed By: #### L 501.2450, L501.5200, L500.3400, L500.2500, L100.0100, L700.6800 #### [facility] [address] [place], [address] Absolute Neut 6.3 X10 3/uL Normal 2.0-7.7 [facility] Comment on above: Performed By: #### L 501.2450, L501.5200, L500.3400, L500.2500, L100.0100, L700.6800 #### [facility] [address] [place], [address] Basophils/100 WBC (Bld) 0.5 % Normal 0-1 [facility] Comment on above: Performed By: #### L 501.2450, L501.5200, L500.3400, L500.2500, L100.0100, L700.6800 #### [facility] [address] [place], [address] Eosinophils/100 WBC (Bld) 3.4 % Normal 0-5 [facility] Comment on above: Performed By: #### L 501.2450, L501.5200, L500.3400, L500.2500, L100.0100, L700.6800 #### [facility] [address] [place], [address] Erythrocyte distribution width (RBC) [Ratio] 14.1 % Normal 11.6-14.6 [facility] Comment on above: Performed By: #### L 501.2450, L501.5200, L500.3400, L500.2500, L100.0100, L700.6800 #### [facility] [address] [place], [address] Hematocrit (Bld) [Volume fraction] 35.5 % Low 37-47 [facility] Comment on above: Performed By: #### L 501.2450, L501.5200, L500.3400, L500.2500, L100.0100, L700.6800 #### [facility] [address] [place], [address] Hemoglobin (Bld) [Mass/Vol] 12.2 g/dL Normal 12.0-15.0 [facility] Comment on above: Performed By: #### L 501.2450, L501.5200, L500.3400, L500.2500, L100.0100, L700.6800 #### [facility] [address] [place], [address] IG% 0.300 Normal 0.0-0.9 [facility] Comment on above: Result Comment: IG% - Immature Granulocytes (promyelocytes, myelocytes and metamyelocytes) > 1% indicates that a LEFT SHIFT is Present. Performed By: #### L 501.2450, L501.5200, L500.3400, L500.2500, L100.0100, L700.6800 #### [facility] [address] [place], [address] Lymphocytes/100 WBC (Bld) 36.9 % Normal 19-41 [facility] Comment on above: Performed By: #### L 501.2450, L501.5200, L500.3400, L500.2500, L100.0100, L700.6800 #### [facility] [address] [place], [address] MCH (RBC) [Entitic mass] 28.0 pg Normal 27.0-32.0 [facility] Comment on above: Performed By: #### L 501.2450, L501.5200, L500.3400, L500.2500, L100.0100, L700.6800 #### [facility] [address] [place], [address] MCHC (RBC) [Mass/Vol] 34.4 g/dL Normal 32-36 [facility] Comment on above: Performed By: #### L 501.2450, L501.5200, L500.3400, L500.2500, L100.0100, L700.6800 #### [facility] [address] [place], [address] MCV (RBC) [Entitic vol] 81.6 fL Normal 81-99 [facility] Comment on above: Performed By: #### L 501.2450, L501.5200, L500.3400, L500.2500, L100.0100, L700.6800 #### [facility] [address] [place], [address] Monocytes/100 WBC (Bld) 3.4 % Normal 0-10 [facility] Comment on above: Performed By: #### L 501.2450, L501.5200, L500.3400, L500.2500, L100.0100, L700.6800 #### [facility] [address] [place], [address] Neutrophils/100 WBC (Bld) 55.5 % Normal 47-70 [facility] Comment on above: Performed By: #### L 501.2450, L501.5200, L500.3400, L500.2500, L100.0100, L700.6800 #### [facility] [address] [place], [address] Nucleated RBC (Bld) [#/Vol] 0 10*3/uL Normal 0-5 [facility] Comment on above: Performed By: #### L 501.2450, L501.5200, L500.3400, L500.2500, L100.0100, L700.6800 #### [facility] [address] [place], [address] Platelet mean volume (Bld) [Entitic vol] 8.8 fL Normal 6.2-12.0 [facility] Comment on above: Performed By: #### L 501.2450, L501.5200, L500.3400, L500.2500, L100.0100, L700.6800 #### [facility] [address] [place], [address] Platelets (Bld) [#/Vol] 331 10*3/uL Normal 150-450 [facility] Comment on above: Performed By: #### L 501.2450, L501.5200, L500.3400, L500.2500, L100.0100, L700.6800 #### [facility] [address] [place], [address] RBC (Bld) [#/Vol] 4.35 10*6/uL Normal 4.2-5.4 [facility] Comment on above: Performed By: #### L 501.2450, L501.5200, L500.3400, L500.2500, L100.0100, L700.6800 #### [facility] [address] [place], [address] RDW SD 41.4 fl Normal 35.1-43.9 [facility] Comment on above: Performed By: #### L 501.2450, L501.5200, L500.3400, L500.2500, L100.0100, L700.6800 #### [facility] [address] [place], [address] WBC (Bld) [#/Vol] 11.3 10*3/uL High 4.4-11.0 [facility] Comment on above: Performed By: #### L 501.2450, L501.5200, L500.3400, L500.2500, L100.0100, L700.6800 #### [facility] [address] [place], [address] Comprehensive Metabolic Prof flon 10-05-2024 Albumin [Mass/Vol] 3.9 g/dL Normal 3.5-5.0 [facility] Comment on above: Performed By: #### L 501.2450, L501.5200, L500.3400, L500.2500, L100.0100, L700.6800 #### [facility] [address] [place], [address] Albumin/Globulin [Mass ratio] 1.4 {ratio} Normal 0.9-2.4 [facility] Comment on above: Performed By: #### L 501.2450, L501.5200, L500.3400, L500.2500, L100.0100, L700.6800 #### [facility] [address] [place], [address] ALK PHOS 113 U/L High 35-104 [facility] Comment on above: Performed By: #### L 501.2450, L501.5200, L500.3400, L500.2500, L100.0100, L700.6800 #### [facility] [address] [place], [address] ALT [Catalytic activity/Vol] 14 U/L Normal <=34 [facility] Comment on above: Performed By: #### L 501.2450, L501.5200, L500.3400, L500.2500, L100.0100, L700.6800 #### [facility] [address] [place], [address] AST [Catalytic activity/Vol] 23 U/L Normal <=31 [facility] Comment on above: Performed By: #### L 501.2450, L501.5200, L500.3400, L500.2500, L100.0100, L700.6800 #### [facility] [address] [place], [address] Bilirubin [Mass/Vol] 0.55 mg/dL Normal 0.00-1.30 [facility] Comment on above: Performed By: #### L 501.2450, L501.5200, L500.3400, L500.2500, L100.0100, L700.6800 #### [facility] [address] [place], [address] BUN/CRE 17.8 RATIO Normal 10-20 [facility] Comment on above: Performed By: #### L 501.2450, L501.5200, L500.3400, L500.2500, L100.0100, L700.6800 #### [facility] [address] [place], [address] Calcium [Mass/Vol] 8.9 mg/dL Normal 7.6-11.0 [facility] Comment on above: Performed By: #### L 501.2450, L501.5200, L500.3400, L500.2500, L100.0100, L700.6800 #### [facility] [address] [place], [address] Chloride [Moles/Vol] 106 mmol/L Normal 98-108 [facility] Comment on above: Performed By: #### L 501.2450, L501.5200, L500.3400, L500.2500, L100.0100, L700.6800 #### [facility] [address] [place], [address] CO2 [Moles/Vol] 22.5 mmol/L Normal 21.0-32.0 [facility] Comment on above: Performed By: #### L 501.2450, L501.5200, L500.3400, L500.2500, L100.0100, L700.6800 #### [facility] [address] [place], [address] Creatinine [Mass/Vol] 0.71 mg/dL Normal 0.70-1.20 [facility] Comment on above: Performed By: #### L 501.2450, L501.5200, L500.3400, L500.2500, L100.0100, L700.6800 #### [facility] [address] [place], [address] GAP 9 Normal 5-15 [facility] Comment on above: Performed By: #### L 501.2450, L501.5200, L500.3400, L500.2500, L100.0100, L700.6800 #### [facility] [address] [place], [address] GFR/1.73 sq M.predicted among non-blacks MDRD (S/P/Bld) [Vol rate/Area] 123 mL/min/{1.73_m2} Normal >60 [facility] Comment on above: Result Comment: mL/m in/1.73m2 CKD-EPI Creatinine Equation (2020) Performed By: #### L 501.2450, L501.5200, L500.3400, L500.2500, L100.0100, L700.6800 #### [facility] [address] [place], [address] Globulin (S) [Mass/Vol] 2.7 g/dL Normal 2.2-4.2 [facility] Comment on above: Performed By: #### L 501.2450, L501.5200, L500.3400, L500.2500, L100.0100, L700.6800 #### [facility] [address] [place], [address] Glucose [Mass/Vol] 100 mg/dL High 70-99 [facility] Comment on above: Performed By: #### L 501.2450, L501.5200, L500.3400, L500.2500, L100.0100, L700.6800 #### [facility] [address] [place], [address] Potassium [Moles/Vol] 4.0 mmol/L Normal 3.3-5.1 [facility] Comment on above: Performed By: #### L 501.2450, L501.5200, L500.3400, L500.2500, L100.0100, L700.6800 #### [facility] [address] [place], [address] Sodium [Moles/Vol] 138 mmol/L Normal 133-145 [facility] Comment on above: Performed By: #### L 501.2450, L501.5200, L500.3400, L500.2500, L100.0100, L700.6800 #### [facility] [address] [place], [address] T PROT 6.6 g/dL Normal 5.9-8.4 [facility] Comment on above: Performed By: #### L 501.2450, L501.5200, L500.3400, L500.2500, L100.0100, L700.6800 #### [facility] [address] [place], [address] Urea nitrogen [Mass/Vol] 13 mg/dL Normal 4-19 [facility] Comment on above: Performed By: #### L 501.2450, L501.5200, L500.3400, L500.2500, L100.0100, L700.6800 #### [facility] [address] [place], [address] Inital Evaluation (1) - PTon 09-30-2024 Inital Evaluation (1) - PT [facility] Physical Therapy [address] [place] [address] / REHABILITATION SERVICES INITIAL EVALUATION MR#: [id number] Acct: [id number] Name: ALINA AMLIK Rep #: [id number] : 2005 From: Conrado Williamson PT, ATC Referring Dr.: Cristo Cox SENIOR IT SECURITY ANALYST-C Status: RE G RCR Insurance: [employer] SELF PAY INSURANCE Patient's Visit Information Visit Information Visit Information: ALINA MALIK is a 19 year old F referred to Physical Therapy by JACQUELIN Bentley, SENIOR IT SECURITY ANALYST-C with a diagnosis of LBP with B [...] LBP and radiates pain down B LE's. KELBER 10x1 peripheralized B LE sx's Balance/Special Test [...] to be FAXED BACK to us at [phone] for Medicare purposes. For Medicare only, by signing this I certify the plan of care. Please let me know if there are questions or concerns regarding this plan of care. Physician Signature: Date: 09/30/24 1421 CC: [facility] SENIOR IT SECURITY ANALYST-C Nikki Olsen; Cristo [facility] SENIOR IT SECURITY ANALYST-C Kenny [facility] Signed Normal [facility] NCS and/or EMG Patienton NCS and/or EMG Patient [facility] Pulmonary Services/Neurology [address] [place] [address] MR#: [id number] Acct: [id number] Name: ALINA MALIK Rep #: [id number] : 2005 19 From: Ricky Pillai MD Referring Dr: Cristo Cox [facility] SENIOR IT SECURITY ANALYST-C Status: REG RCR Location: PT Date: 09/30/24 [...] Multi Select Codes Neurology Neurology Interp Codes: 32456-16 Musc test done w/n test comp (interp) (2) and 54012-40 Nrv cndj test 11-12 studies (interp) 09/30/24 1246 Date Ricky Pillai MD CC: [facility] SENIOR IT SECURITY ANALYST-C Nikki Olsen; Dr. Ricky Pillai MD; Cristo [facility] SENIOR IT SECURITY ANALYST-C Kenny Date Dictated: 09/30/24 1243 Date Transcribed: 09/30/24 1243 Childcare Teacher: TRAV Signed Normal [facility] Emergency Department Summary on 09-14-2024 Emergency Department Summary [facility] Medical Records Department [address] [place] [address] Emergency Department Summary 09/14/24 MR#: [id number] Acct: [id number] Name: ALINA MALIK Rep #: [id number] : 2005 19 From: Remy Sawyer DO PCP: JACQUELIN Flores, SENIOR IT SECURITY ANALYST-C Status:DEP ER Location: ED HPI History of [...] the worsening symptoms comes in for evaluation [facility] Medical History EP (ectopic ) Palpitations Wears [...] leg compared (more content not included)... Normal [facility] Spine Lumbar without Contras ton 09-14-2024 Spine Lumbar without Contrast [facility] Imaging Services [address] [place] [address] Spine Lumbar without Contrast MR#: [id number] Acct: [id number] Name: KINGALINA SHEREEN Rep #: [id number] : 2005 F 19 From: Shailesh Linder MD PCP: Nikki Olsen [facility], SENIOR IT SECURITY ANALYST-C Status: REG ER Study: Spine Lumbar without Contrast Date of Exam: Exam# [id number] Ordering Dr: Remy Sawyer DO PROCEDURE: SPINE LUMBAR WITHOUT CONTRAST 09/14/2024 REASON FOR EXAM: LUMBAR RADICULOPATHY TECHNIQUE: Noncontrast lumbar spine CT with coronal and sagittal reformatted images COMPARISON: None available FINDINGS: 5 ipe-[id number]-[id number] lumbar vertebral type bodies identified. No fracture or malalignment. The disc spaces appear within limits. Symmetric appearing SI joints appear within limits. Intrauterine device appears centrally located. Abdominal aorta and visualized retroperitoneum appears unremarkable on noncontrast imaging. Retroaortic left renal vein, incidental anatomic variant. Partially imaged kidneys appear within limits without stones or hydronephrosis identified. CT/Spine Lumbar without Contrast IMPRESSION: 5 [id number]-[id number] lumbar vertebral type bodies identified. No fracture or malalignment. The disc spaces appear within limits. Symmetric appearing SI joints appear within limits. Reading Location: [id number] CC: [facility] SENIOR IT SECURITY ANALYST-Maverick Olsen; Remy Sawyer DO Childcare Teacher: Signed Normal [facility] Urgent Care Visit Reporton 0 09-12-2024 Urgent Care Visit Report [facility] [address] [place] [address] OFFICE VISIT Date of Service: 09/12/24 MR#: [id number] Acct: [id number] Name: KINGALINA FRIENDRAINE Rep #: [id number] : 2005 Provider: JACKELIN Talley Age/Sex: 19/F Location: [facility] Status: Signed Intake [...] left side. Patient denies a sore throat. [facility] Medical History EP (ectopic ) Palpitations Wears [...] 7 days after- to check with her cookie padder -warm salt water gargles, warm te (more content not included)... Normal [facility] CBC W/Diff, Automatedon 08-22 Absolute Lymph 2.84 X10 3/uL Normal 0.83-4.51 [facility] Comment on above: Performed By: #### L 501.2450, L501.5200, L500.3400, L500.2500, L100.0100, L700.6800 #### [facility] [address] [place], [address] Absolute Neut 6.0 X10 3/uL Normal 2.0-7.7 [facility] Comment on above: Performed By: #### L 501.2450, L501.5200, L500.3400, L500.2500, L100.0100, L700.6800 #### [facility] [address] [place], [address] Basophils/100 WBC (Bld) 0.7 % Normal 0-1 [facility] Comment on above: Performed By: #### L 501.2450, L501.5200, L500.3400, L500.2500, L100.0100, L700.6800 #### [facility] [address] [place], [address] Eosinophils/100 WBC (Bld) 4.4 % Normal 0-5 [facility] Comment on above: Performed By: #### L 501.2450, L501.5200, L500.3400, L500.2500, L100.0100, L700.6800 #### [facility] [address] [place], [address] Erythrocyte distribution width (RBC) [Ratio] 13.9 % Normal 11.6-14.6 [facility] Comment on above: Performed By: #### L 501.2450, L501.5200, L500.3400, L500.2500, L100.0100, L700.6800 #### [facility] [address] [place], [address] Hematocrit (Bld) [Volume fraction] 38.4 % Normal 37-47 [facility] Comment on above: Performed By: #### L 501.2450, L501.5200, L500.3400, L500.2500, L100.0100, L700.6800 #### [facility] [address] [place], [address] Hemoglobin (Bld) [Mass/Vol] 12.8 g/dL Normal 12.0-15.0 [facility] Comment on above: Performed By: #### L 501.2450, L501.5200, L500.3400, L500.2500, L100.0100, L700.6800 #### [facility] [address] [place], [address] IG% 0.400 Normal 0.0-0.9 [facility] Comment on above: Result Comment: IG% - Immature Granulocytes (promyelocytes, myelocytes and metamyelocytes) > 1% indicates that a LEFT SHIFT is Present. Performed By: #### L 501.2450, L501.5200, L500.3400, L500.2500, L100.0100, L700.6800 #### [facility] [address] [place] [place], [address] Lymphocytes/100 WBC (Bld) 29.5 % Normal 19-41 [facility] Comment on above: Performed By: #### L 501.2450, L501.5200, L500.3400, L500.2500, L100.0100, L700.6800 #### [facility] [address] [place], [address] MCH (RBC) [Entitic mass] 27.6 pg Normal 27.0-32.0 [facility] Comment on above: Performed By: #### L 501.2450, L501.5200, L500.3400, L500.2500, L100.0100, L700.6800 #### [facility] [address] [place], [address] MCHC (RBC) [Mass/Vol] 33.3 g/dL Normal 32-36 [facility] Comment on above: Performed By: #### L 501.2450, L501.5200, L500.3400, L500.2500, L100.0100, L700.6800 #### [facility] [address] [place], [address] MCV (RBC) [Entitic vol] 82.9 fL Normal 81-99 [facility] Comment on above: Performed By: #### L 501.2450, L501.5200, L500.3400, L500.2500, L100.0100, L700.6800 #### [facility] [address] [place], [address] Monocytes/100 WBC (Bld) 3.3 % Normal 0-10 [facility] Comment on above: Performed By: #### L 501.2450, L501.5200, L500.3400, L500.2500, L100.0100, L700.6800 #### [facility] [address] [place], [address] Neutrophils/100 WBC (Bld) 61.7 % Normal 47-70 [facility] Comment on above: Performed By: #### L 501.2450, L501.5200, L500.3400, L500.2500, L100.0100, L700.6800 #### [facility] [address] [place], [address] Nucleated RBC (Bld) [#/Vol] 0 10*3/uL Normal 0-5 [facility] Comment on above: Performed By: #### L 501.2450, L501.5200, L500.3400, L500.2500, L100.0100, L700.6800 #### [facility] [address] [place], [address] Platelet mean volume (Bld) [Entitic vol] 8.6 fL Normal 6.2-12.0 [facility] Comment on above: Performed By: #### L 501.2450, L501.5200, L500.3400, L500.2500, L100.0100, L700.6800 #### [facility] [address] [place], [address] Platelets (Bld) [#/Vol] 382 10*3/uL Normal 150-450 [facility] Comment on above: Performed By: #### L 501.2450, L501.5200, L500.3400, L500.2500, L100.0100, L700.6800 #### [facility] [address] [place], [address] RBC (Bld) [#/Vol] 4.63 10*6/uL Normal 4.2-5.4 [facility] Comment on above: Performed By: #### L 501.2450, L501.5200, L500.3400, L500.2500, L100.0100, L700.6800 #### [facility] [address] [place], [address] RDW SD 41.4 fl Normal 35.1-43.9 [facility] Comment on above: Performed By: #### L 501.2450, L501.5200, L500.3400, L500.2500, L100.0100, L700.6800 #### [facility] [address] [place], [address] WBC (Bld) [#/Vol] 9.6 10*3/uL Normal 4.4-11.0 [facility] Comment on above: Performed By: #### L 501.2450, L501.5200, L500.3400, L500.2500, L100.0100, L700.6800 #### [facility] [address] [place], [address] Comprehensive Metabolic Prof flon 09-03-2024 Albumin [Mass/Vol] 4.3 g/dL Normal 3.5-5.0 [facility] Comment on above: Performed By: #### L 501.2450, L501.5200, L500.3400, L500.2500, L100.0100, L700.6800 #### [facility] [address] [place], [address] Albumin/Globulin [Mass ratio] 1.4 {ratio} Normal 0.9-2.4 [facility] Comment on above: Performed By: #### L 501.2450, L501.5200, L500.3400, L500.2500, L100.0100, L700.6800 #### [facility] [address] [place], [address] ALK PHOS 112 U/L High 35-104 [facility] Comment on above: Performed By: #### L 501.2450, L501.5200, L500.3400, L500.2500, L100.0100, L700.6800 #### [facility] [address] [place], [address] ALT [Catalytic activity/Vol] 16 U/L Normal <=34 [facility] Comment on above: Performed By: #### L 501.2450, L501.5200, L500.3400, L500.2500, L100.0100, L700.6800 #### [facility] [address] [place], [address] AST [Catalytic activity/Vol] 23 U/L Normal <=31 [facility] Comment on above: Performed By: #### L 501.2450, L501.5200, L500.3400, L500.2500, L100.0100, L700.6800 #### [facility] [address] [place], [address] Bilirubin [Mass/Vol] 0.49 mg/dL Normal 0.00-1.30 [facility] Comment on above: Performed By: #### L 501.2450, L501.5200, L500.3400, L500.2500, L100.0100, L700.6800 #### [facility] [address] [place], [address] BUN/CRE 17.9 RATIO Normal 10-20 [facility] Comment on above: Performed By: #### L 501.2450, L501.5200, L500.3400, L500.2500, L100.0100, L700.6800 #### [facility] [address] [place], [address] Calcium [Mass/Vol] 9.4 mg/dL Normal 7.6-11.0 [facility] Comment on above: Performed By: #### L 501.2450, L501.5200, L500.3400, L500.2500, L100.0100, L700.6800 #### [facility] [address] [place], [address] Chloride [Moles/Vol] 105 mmol/L Normal 98-108 [facility] Comment on above: Performed By: #### L 501.2450, L501.5200, L500.3400, L500.2500, L100.0100, L700.6800 #### [facility] [address] [place], [address] CO2 [Moles/Vol] 21.8 mmol/L Normal 21.0-32.0 [facility] Comment on above: Performed By: #### L 501.2450, L501.5200, L500.3400, L500.2500, L100.0100, L700.6800 #### [facility] [address] [place], [address] Creatinine [Mass/Vol] 0.70 mg/dL Normal 0.70-1.20 [facility] Comment on above: Performed By: #### L 501.2450, L501.5200, L500.3400, L500.2500, L100.0100, L700.6800 #### [facility] [address] [place], [address] GAP 12 Normal 5-15 [facility] Comment on above: Performed By: #### L 501.2450, L501.5200, L500.3400, L500.2500, L100.0100, L700.6800 #### [facility] [address] [place], [address] GFR/1.73 sq M.predicted among non-blacks MDRD (S/P/Bld) [Vol rate/Area] 126 mL/min/{1.73_m2} Normal >60 [facility] Comment on above: Result Comment: mL/m in/1.73m2 CKD-EPI Creatinine Equation (2020) Performed By: #### L 501.2450, L501.5200, L500.3400, L500.2500, L100.0100, L700.6800 #### [facility] [address] [place], [address] Globulin (S) [Mass/Vol] 3.0 g/dL Normal 2.2-4.2 [facility] Comment on above: Performed By: #### L 501.2450, L501.5200, L500.3400, L500.2500, L100.0100, L700.6800 #### [facility] [address] [place], [address] Glucose [Mass/Vol] 105 mg/dL High 70-99 [facility] Comment on above: Performed By: #### L 501.2450, L501.5200, L500.3400, L500.2500, L100.0100, L700.6800 #### [facility] [address] [place], [address] Potassium [Moles/Vol] 4.1 mmol/L Normal 3.3-5.1 [facility] Comment on above: Performed By: #### L 501.2450, L501.5200, L500.3400, L500.2500, L100.0100, L700.6800 #### [facility] [address] [place], [address] Sodium [Moles/Vol] 139 mmol/L Normal 133-145 [facility] Comment on above: Performed By: #### L 501.2450, L501.5200, L500.3400, L500.2500, L100.0100, L700.6800 #### [facility] [address] [place], [address] T PROT 7.3 g/dL Normal 5.9-8.4 [facility] Comment on above: Performed By: #### L 501.2450, L501.5200, L500.3400, L500.2500, L100.0100, L700.6800 #### [facility] [address] [place], [address] Urea nitrogen [Mass/Vol] 13 mg/dL Normal 4-19 [facility] Comment on above: Performed By: #### L 501.2450, L501.5200, L500.3400, L500.2500, L100.0100, L700.6800 #### [facility] [address] [place], [address] L506.1001on 09-03-2024 Vitamin D 25-OH 13.9 ng/mL Low 30-100 [facility] Comment on above: Result Comment: Janett min D Status Deficiency: <20 ng/mL (50nmol/L) Insufficiency: 20-30 ng/mL (50-75 nmol/L) Sufficiency: 30-100 ng/mL (75-250 nmol/L) Toxicity: >100 ng/mL (>250 nmol/L) Performed By: #### L 501.2450, L501.5200, L500.3400, L500.2500, L100.0100, L700.6800 #### [facility] [address] [place], [address] Thyroid Stim Hormone (TSH)on 09-03-2024 TSH 1.920 uIU/mL Normal 0.300-4.200 [facility] Comment on above: Performed By: #### L 501.2450, L501.5200, L500.3400, L500.2500, L100.0100, L700.6800 #### [facility] [address] [place], [address] Venous Duplex US, Unilateral on 09-03-2024 Venous Duplex US, Unilateral [facility] [address] [place] [address] Venous Duplex US, Unilateral 09/03/24 1241 MR#: [id number] Acct: [id number] Name: ALINA MALIK Rep #: [id number] : 2005 19 From: Josesito Nair MD Attending Dr: Cristo Cox [facility] SENIOR IT SECURITY ANALYST-C Status: REG CLI Ordering Dr: Cristo Cox [facility] SENIOR IT SECURITY ANALYST-C Date: 09/03/24 Location: [facility] Sex: F C Admitted: Reason For Study Reason For Study: Left leg pain Procedure LEFT This is a venous duplex using B-mode, color flow and GSV is normal. spectral Doppler. CFV is compressible, spontaneous, phasic, competent, Exam performed in department. and demonstrates normal augmentation. A preliminary report was called and/or faxed to Kenny FV is compressible, spontaneous, phasic, competent SENIOR IT SECURITY ANALYST-C. and demonstrates normal augmentation. POP V is [...] 09/03/24 1644 Date Josesito Nair MD CC: [facility] SENIOR IT SECURITY ANALYST-C Nikki Olsen; Cristo [facility] SENIOR IT SECURITY ANALYST-C Kenny Date Dictated: 09/03/24 1241 Date Transcribed: 09/03/241643 Childcare Teacher: Signed Normal [facility] ALEJANDRINA Comprehensive Panelon ANTI-DNA (DS)AB 1 IU/mL Normal 0-9 [facility] Comment on above: Result Comment: Nega tive <5 Equivocal 5 - 9 Positive >9 Performed By: #### L 501.2450, L501.5200, L500.3400, L500.2500, L100.0100, L700.6800 #### [facility] [address] [place], [address] ANTISCLERODERM <0.2 Normal 0.0-0.9 [facility] Comment on above: Performed By: #### L 501.2450, L501.5200, L500.3400, L500.2500, L100.0100, L700.6800 #### [facility] [address] [place], [address] BNP,B-Type NATRIURETIC PEPTI Checo 08-05-2024 Natriuretic peptide B (Bld) [Mass/Vol] 53.2 pg/mL Normal 0-100 [facility] Comment on above: Performed By: #### L 501.2450, L501.5200, L500.3400, L500.2500, L100.0100, L700.6800 #### [facility] [address] [place], [address] CRPon 08-05-2024 C-REACTIVE PROT 21.10 mg/L High 0.0-3.0 [facility] Comment on above: Result Comment: C-Re active Protein (CRP) provides useful information for the diagnosis, therapy and monitoring of inflammatory processes and associated diseases. For the evaluation of Relative Risk for Cardiovascular Disease, a High Sensitivity CRP (HSCRP) should be ordered. Performed By: #### L 501.2450, L501.5200, L500.3400, L500.2500, L100.0100, L700.6800 #### [facility] [address] [place], [address] Erythrocyte Sed Rateon 08-05 SED RATE 14 mm/hr Normal 0-30 [facility] Comment on above: Performed By: #### L 501.2450, L501.5200, L500.3400, L500.2500, L100.0100, L700.6800 #### [facility] [address] [place], [address] Hemoglobin A1con 08-05-2024 HbA1c (Bld) [Mass fraction] 5.2 % Normal 3.8-5.6 [facility] Comment on above: Result Comment: Norm al < 5.7 % Prediabetic 5.7 - 6.4 % Diabetic >or= 6.5 % Please note range changes. Performed By: #### L 501.2450, L501.5200, L500.3400, L500.2500, L100.0100, L700.6800 #### [facility] [address] [place], [place], [id number] Thyroid Stim Hormone (TSH)on 08-05-2024 TSH 1.870 uIU/mL Normal 0.358-3.740 [facility] Comment on above: Performed By: #### L 501.2450, L501.5200, L500.3400, L500.2500, L100.0100, L700.6800 #### [facility] [address] [place], [place], [address] ANTINUCLEAR ANTIBODIES DIREC Ton 07-10-2024 ALEJANDRINA,DIRECT Negative Normal Negative [facility] Comment on above: Result Comment: Perf ormed at: [facility] [address] [id number] Credit Intern: Que Cruz PhD, Phone: [phone] Performed By: #### L 501.2450, L501.5200, L500.3400, L500.2500, L100.0100, L700.6800 #### [facility] [address] [place], [place], [address] BNP,B-Type NATRIURETIC PEPTI Checo 07-10-2024 Natriuretic peptide B (Bld) [Mass/Vol] 7.9 pg/mL Normal 0-100 [facility] Comment on above: Performed By: #### L 501.2450, L501.5200, L500.3400, L500.2500, L100.0100, L700.6800 #### [facility] [address] [place], [place], [address] Basic Metabolic Profile (BMP )on 07-10-2024 BUN/CRE 18.4 RATIO Normal 10-20 [facility] Comment on above: Order Comment: 'TROP ' Serial specimen #1, #2 or #3: 1 Performed By: #### L 501.2450, L501.5200, L500.3400, L500.2500, L100.0100, L700.6800 #### [facility] [address] [place], [address] CA,Total 9.2 mg/dL Normal 8.5-10.1 [facility] Comment on above: Order Comment: 'TROP ' Serial specimen #1, #2 or #3: 1 Performed By: #### L 501.2450, L501.5200, L500.3400, L500.2500, L100.0100, L700.6800 #### [facility] [address] [place], [address] Chloride [Moles/Vol] 109 mmol/L High 98-107 [facility] Comment on above: Order Comment: 'TROP ' Serial specimen #1, #2 or #3: 1 Performed By: #### L 501.2450, L501.5200, L500.3400, L500.2500, L100.0100, L700.6800 #### [facility] [address] [place], [address] CO2 [Moles/Vol] 26.0 mmol/L Normal 21.0-32.0 [facility] Comment on above: Order Comment: 'TROP ' Serial specimen #1, #2 or #3: 1 Performed By: #### L 501.2450, L501.5200, L500.3400, L500.2500, L100.0100, L700.6800 #### [facility] [address] [place], [address] Creatinine [Mass/Vol] 0.71 mg/dL Normal 0.55-1.02 [facility] Comment on above: Order Comment: 'TROP ' Serial specimen #1, #2 or #3: 1 Result Comment: The validity of the calculated GFR GFRAA in patients over 70 years has not been determined. Clinical correlation is essential. Performed By: #### L 501.2450, L501.5200, L500.3400, L500.2500, L100.0100, L700.6800 #### [facility] [address] [place], [address] ECRCL 173.85 ml/min Normal [facility] Comment on above: Order Comment: 'TROP ' Serial specimen #1, #2 or #3: 1 Performed By: #### L 501.2450, L501.5200, L500.3400, L500.2500, L100.0100, L700.6800 #### [facility] [address] [place], [address] EST GFR - AA 134 mL/min Normal >60 [facility] Comment on above: Order Comment: 'TROP ' Serial specimen #1, #2 or #3: 1 Result Comment: Afri can Niuean GFR Calc Performed By: #### L 501.2450, L501.5200, L500.3400, L500.2500, L100.0100, L700.6800 #### [facility] [address] [place], [address] GAP 5 Normal 5-15 [facility] Comment on above: Order Comment: 'TROP ' Serial specimen #1, #2 or #3: 1 Performed By: #### L 501.2450, L501.5200, L500.3400, L500.2500, L100.0100, L700.6800 #### [facility] [address] [place], [address] GFR/1.73 sq M.predicted among non-blacks MDRD (S/P/Bld) [Vol rate/Area] 111 mL/min/{1.73_m2} Normal >60 [facility] Comment on above: Order Comment: 'TROP ' Serial specimen #1, #2 or #3: 1 Result Comment: Non- GFR Calc Performed By: #### L 501.2450, L501.5200, L500.3400, L500.2500, L100.0100, L700.6800 #### [facility] [address] [place], [address] Glucose [Mass/Vol] 114 mg/dL High 74-106 [facility] Comment on above: Order Comment: 'TROP ' Serial specimen #1, #2 or #3: 1 Result Comment: Fast ing Glucose result from 100 to 125 mg/dL suggests IMPAIRED HOMEOSTASIS per A.D.A. criteria. Performed By: #### L 501.2450, L501.5200, L500.3400, L500.2500, L100.0100, L700.6800 #### [facility] [address] [place], [address] Potassium [Moles/Vol] 3.9 mmol/L Normal 3.5-5.1 [facility] Comment on above: Order Comment: 'TROP ' Serial specimen #1, #2 or #3: 1 Performed By: #### L 501.2450, L501.5200, L500.3400, L500.2500, L100.0100, L700.6800 #### [facility] [address] [place], [address] Sodium [Moles/Vol] 140 mmol/L Normal 136-145 [facility] Comment on above: Order Comment: 'TROP ' Serial specimen #1, #2 or #3: 1 Performed By: #### L 501.2450, L501.5200, L500.3400, L500.2500, L100.0100, L700.6800 #### [facility] [address] [place], [address] Urea nitrogen [Mass/Vol] 13 mg/dL Normal 7-18 [facility] Comment on above: Order Comment: 'TROP ' Serial specimen #1, #2 or #3: 1 Performed By: #### L 501.2450, L501.5200, L500.3400, L500.2500, L100.0100, L700.6800 #### [facility] [address] [place], [address] CBC W/Diff, Automatedon 06-24 Absolute Lymph 2.79 X10 3/uL Normal 0.83-4.51 [facility] Comment on above: Performed By: #### L 501.2450, L501.5200, L500.3400, L500.2500, L100.0100, L700.6800 #### [facility] [address] [place], [address] Absolute Neut 7.0 X10 3/uL Normal 2.0-7.7 [facility] Comment on above: Performed By: #### L 501.2450, L501.5200, L500.3400, L500.2500, L100.0100, L700.6800 #### [facility] [address] [place], [address] Basophils/100 WBC (Bld) 0.5 % Normal 0-1 [facility] Comment on above: Performed By: #### L 501.2450, L501.5200, L500.3400, L500.2500, L100.0100, L700.6800 #### [facility] [address] [place], [address] Eosinophils/100 WBC (Bld) 2.7 % Normal 0-5 [facility] Comment on above: Performed By: #### L 501.2450, L501.5200, L500.3400, L500.2500, L100.0100, L700.6800 #### [facility] [address] [place], [address] Erythrocyte distribution width (RBC) [Ratio] 14.1 % Normal 11.6-14.6 [facility] Comment on above: Performed By: #### L 501.2450, L501.5200, L500.3400, L500.2500, L100.0100, L700.6800 #### [facility] [address] [place], [address] Hematocrit (Bld) [Volume fraction] 37.8 % Normal 37-47 [facility] Comment on above: Performed By: #### L 501.2450, L501.5200, L500.3400, L500.2500, L100.0100, L700.6800 #### [facility] [address] [place], [address] Hemoglobin (Bld) [Mass/Vol] 12.7 g/dL Normal 12.0-15.0 [facility] Comment on above: Performed By: #### L 501.2450, L501.5200, L500.3400, L500.2500, L100.0100, L700.6800 #### [facility] [address] [place], [address] IG% 0.800 Normal 0.0-0.9 [facility] Comment on above: Result Comment: IG% - Immature Granulocytes (promyelocytes, myelocytes and metamyelocytes) > 1% indicates that a LEFT SHIFT is Present. Performed By: #### L 501.2450, L501.5200, L500.3400, L500.2500, L100.0100, L700.6800 #### [facility] [address] [place], [address] Lymphocytes/100 WBC (Bld) 26.3 % Normal 19-41 [facility] Comment on above: Performed By: #### L 501.2450, L501.5200, L500.3400, L500.2500, L100.0100, L700.6800 #### [facility] [address] [place], [address] MCH (RBC) [Entitic mass] 28.0 pg Normal 27.0-32.0 [facility] Comment on above: Performed By: #### L 501.2450, L501.5200, L500.3400, L500.2500, L100.0100, L700.6800 #### [facility] [address] [place], [address] MCHC (RBC) [Mass/Vol] 33.6 g/dL Normal 32-36 [facility] Comment on above: Performed By: #### L 501.2450, L501.5200, L500.3400, L500.2500, L100.0100, L700.6800 #### [facility] [address] [place], [address] MCV (RBC) [Entitic vol] 83.3 fL Normal 81-99 [facility] Comment on above: Performed By: #### L 501.2450, L501.5200, L500.3400, L500.2500, L100.0100, L700.6800 #### [facility] [address] [place], [address] Monocytes/100 WBC (Bld) 3.1 % Normal 0-10 [facility] Comment on above: Performed By: #### L 501.2450, L501.5200, L500.3400, L500.2500, L100.0100, L700.6800 #### [facility] [address] [place], [address] Neutrophils/100 WBC (Bld) 66.6 % Normal 47-70 [facility] Comment on above: Performed By: #### L 501.2450, L501.5200, L500.3400, L500.2500, L100.0100, L700.6800 #### [facility] [address] [place], [address] Nucleated RBC (Bld) [#/Vol] 0 10*3/uL Normal 0-5 [facility] Comment on above: Performed By: #### L 501.2450, L501.5200, L500.3400, L500.2500, L100.0100, L700.6800 #### [facility] [address] [place], [address] Platelet mean volume (Bld) [Entitic vol] 8.5 fL Normal 6.2-12.0 [facility] Comment on above: Performed By: #### L 501.2450, L501.5200, L500.3400, L500.2500, L100.0100, L700.6800 #### [facility] [address] [place], [address] Platelets (Bld) [#/Vol] 349 10*3/uL Normal 150-450 [facility] Comment on above: Performed By: #### L 501.2450, L501.5200, L500.3400, L500.2500, L100.0100, L700.6800 #### [facility] [address] [place], [address] RBC (Bld) [#/Vol] 4.54 10*6/uL Normal 4.2-5.4 [facility] Comment on above: Performed By: #### L 501.2450, L501.5200, L500.3400, L500.2500, L100.0100, L700.6800 #### [facility] [address] [place], [address] RDW SD 42.8 fl Normal 35.1-43.9 [facility] Comment on above: Performed By: #### L 501.2450, L501.5200, L500.3400, L500.2500, L100.0100, L700.6800 #### [facility] [address] [place], [address] WBC (Bld) [#/Vol] 10.6 10*3/uL Normal 4.4-11.0 [facility] Comment on above: Performed By: #### L 501.2450, L501.5200, L500.3400, L500.2500, L100.0100, L700.6800 #### [facility] [address] [place], [place], [address] CCP IgG Antibodieson 025 CCP IgG Ab. 0 units Normal 0-19 [facility] Comment on above: Result Comment: Nega tive <20 Weak positive 20 - 39 Moderate positive 40 - 59 Strong positive >59 Performed at: [address] [id number] Credit Intern: Que Cruz PhD, Phone: [phone] Performed By: #### L 501.9350, L501.5200, L500.3400, L500.2500, L100.0100, L700.3097 #### [facility] [address] [place], [place], [address] CNOVon 07-10-2024 CNOV Office Visit (UCWSTR ) ALINA MALIK ([id number]) 1 F Date Time Provider Department 07/10/24 10:00 AM JOE CHRISTIANSEN [facility] During your visit today, we recorded [...] says labs were OK. Primary care at [facility]. PAST MEDICAL HISTORY Diagnosis Date Anxiety [...] declines EMS transfer and will to to [facility] ED. Joe Christiansen MD Allergies As [...] 08/26/2023 Level of Service: OFFICE/OUTPATIENT ESTABLISHED LOW [facility] 20 MIN [[id number]] Encounter Status:Closed by JOE CHRISTIANSEN on (more content not included)... Normal [facility] CTA Chest W/WO Contraston CTA Chest W/WO Contrast [facility] Imaging Services [address] [place] [address] CTA Chest W/WO Contrast MR#: [id number] Acct: [id number] Name: ALINA MALIK Rep #: [id number] : 2005 F 19 From: Demetris tian MD PCP: JACQUELIN Flores, SENIOR IT SECURITY ANALYST-C Status: REG ER Study: CTA Chest W/WO Contrast Date of Exam: 07/10/24 Exam# [id number] Ordering Dr: Karen Mayes [id number] STUDY: CTA CHEST REASON FOR EXAM: Female, [...] 14:00 EST Reading Location ID and State: [address] [place] [address] , Service support , CC: [facility] SENIOR IT SECURITY ANALYST-C Nikki Olsen; MONICA Jacinto Childcare Teacher: Signed Normal [facility] Chest PA and Lateralon 07-10 Chest PA and Lateral [facility] Imaging Services [address] [place], [place] [address] Chest PA and Lateral MR#: [id number] Acct: [id number] Name: ALINA MALIK Rep #: [id number] : 2005 F 19 From: Demetris tian MD PCP: Nikki Olsen Maverick, SENIOR IT SECURITY ANALYST-C Status: REG ER Study: Chest PA and Lateral Date of Exam: 07/10/24 Exam# [id number] Ordering Dr: Karen Mayes [id number] STUDY: X-RAY CHEST REASON FOR EXAM: Female, [...] Signed: Demetris Riojas MD at 12:23 EST , CC: JACQUELIN Olsen; MONICA Jacinto Childcare Teacher: Signed Normal [facility] D-Dimer Quantitative (DVT/PE )on 07-10-2024 D-DIMER QUANT 0.59 FEU/ug/m Invalid Interpretation Code 0.27-0.49 [facility] Comment on above: Result Comment: D-Di emani ELEVATED (>0.49): Additional studies and clinical assessments are indicated to conclude diagnosis of: Deep Vein Thrombosis (DVT) or Pulmonary Embolism (PE) CRITICAL VALUE CALLED TO Jose LOZANO (2) 07/10/24 1203 Liana Lawton. RESULTS READ BACK BY . Performed By: #### L 501.2450, L501.5200, L500.3400, L500.2500, L100.0100, L700.6800 #### [facility] [address] [place], [address] Emergency Department Summary on 07-10-2024 Emergency Department Summary [facility] Medical Records Department [address] [place] [address] Emergency Department Summary 07/10/24 MR#: [id number] Acct: [id number] Name: ALINA MALIK Rep #: [id number] : 2005 19 From: Arvin Segundo DO PCP: JACQUELIN Flores, SENIOR IT SECURITY ANALYST-C Status:DEP ER Location: ED HPI History of [...] abdominal pain, or diarrhea. She sees a cookie padder for unspecified problems and does not have a primary care doctor. PFSH PFSH Medical History EP (ectopic ) [...] MDM Narrative (more content not included)... Normal [facility] L501.4020on 07-10-2024 TROPONIN-I HS < 3 Low 3.0-54.0 [facility] Comment on above: Order Comment: 'TROP ' Serial specimen #1, #2 or #3: 1 Result Comment: Lorna lazar Note: New Test Units and Gender Specific Reference Ranges. For more information see Policy Stat Procedure [place] High Sensitivity Troponin (TNIH) and attachments. Performed By: #### L 501.2450, L501.5200, L500.3400, L500.2500, L100.0100, L700.6800 #### [facility] [address] [place], [place], [id number] (172) ,Serum,hCG Quali.on 07-10-2024 HCG, SERUM QUAL Negative Normal [facility] Comment on above: Performed By: #### L 501.2450, L501.5200, L500.3400, L500.2500, L100.0100, L700.6800 #### [facility] [address] [place], [address] Quantiferon TB-Gold+on 07-10 QFT MITOGEN DOMI > 10.00 Normal . [facility] Comment on above: Performed By: #### L 501.2450, L501.5200, L500.3400, L500.2500, L100.0100, L700.6800 #### [facility] [address] [place], [address] QFT NIL VALUE 0.01 IU/mL Normal . [facility] Comment on above: Performed By: #### L 501.2450, L501.5200, L500.3400, L500.2500, L100.0100, L700.6800 #### [facility] [address] [place], [address] QFT TB GOLD+ Comment Normal . [facility] Comment on above: Result Comment: [place] tiFERON-TB [...] 501.2450, L501.5200, L500.3400, L500.2500, L100.0100, L700.6800 #### [facility] [address] [place], [address] QFT TB POS CRIT Negative Normal Negative [facility] Comment on above: Result Comment: No r [...] 501.2450, L501.5200, L500.3400, L500.2500, L100.0100, L700.6800 #### [facility] [address] [place], [address] QFT TB1+ AG DOMI 0.01 IU/mL Normal . [facility] Comment on above: Performed By: #### L 501.2450, L501.5200, L500.3400, L500.2500, L100.0100, L700.6800 #### [facility] [address] [place], [address] QFT TB2+ AG DOMI 0.01 IU/mL Normal . [facility] Comment on above: Performed By: #### L 501.2450, L501.5200, L500.3400, L500.2500, L100.0100, L700.6800 #### [facility] [address] [place], [address] CBC W/Diff, Automatedon -06 28-2024 Absolute Lymph 3.18 X10 3/uL Normal 0.83-4.51 [facility] Comment on above: Performed By: #### L 501.2450, L501.5200, L500.3400, L500.2500, L100.0100, L700.6800 #### [facility] [address] [place], [address] Absolute Neut 5.5 X10 3/uL Normal 2.0-7.7 [facility] Comment on above: Performed By: #### L 501.2450, L501.5200, L500.3400, L500.2500, L100.0100, L700.6800 #### [facility] [address] [place], [address] Basophils/100 WBC (Bld) 0.7 % Normal 0-1 [facility] Comment on above: Performed By: #### L 501.2450, L501.5200, L500.3400, L500.2500, L100.0100, L700.6800 #### [facility] [address] [place], [address] Eosinophils/100 WBC (Bld) 3.5 % Normal 0-5 [facility] Comment on above: Performed By: #### L 501.2450, L501.5200, L500.3400, L500.2500, L100.0100, L700.6800 #### [facility] [address] [place], [address] Erythrocyte distribution width (RBC) [Ratio] 14.2 % Normal 11.6-14.6 [facility] Comment on above: Performed By: #### L 501.2450, L501.5200, L500.3400, L500.2500, L100.0100, L700.6800 #### [facility] [address] [place], [address] Hematocrit (Bld) [Volume fraction] 35.2 % Low 37-47 [facility] Comment on above: Performed By: #### L 501.2450, L501.5200, L500.3400, L500.2500, L100.0100, L700.6800 #### [facility] [address] [place], [address] Hemoglobin (Bld) [Mass/Vol] 11.7 g/dL Low 12.0-15.0 [facility] Comment on above: Performed By: #### L 501.2450, L501.5200, L500.3400, L500.2500, L100.0100, L700.6800 #### [facility] [address] [place], [address] IG% 0.300 Normal 0.0-0.9 [facility] Comment on above: Result Comment: IG% - Immature Granulocytes (promyelocytes, myelocytes and metamyelocytes) > 1% indicates that a LEFT SHIFT is Present. Performed By: #### L 501.2450, L501.5200, L500.3400, L500.2500, L100.0100, L700.6800 #### [facility] [address] [place], [address] Lymphocytes/100 WBC (Bld) 33.8 % Normal 19-41 [facility] Comment on above: Performed By: #### L 501.2450, L501.5200, L500.3400, L500.2500, L100.0100, L700.6800 #### [facility] [address] [place], [address] MCH (RBC) [Entitic mass] 27.6 pg Normal 27.0-32.0 [facility] Comment on above: Performed By: #### L 501.2450, L501.5200, L500.3400, L500.2500, L100.0100, L700.6800 #### [facility] [address] [place], [address] MCHC (RBC) [Mass/Vol] 33.2 g/dL Normal 32-36 [facility] Comment on above: Performed By: #### L 501.2450, L501.5200, L500.3400, L500.2500, L100.0100, L700.6800 #### [facility] [address] [place], [address] MCV (RBC) [Entitic vol] 83.0 fL Normal 81-99 [facility] Comment on above: Performed By: #### L 501.2450, L501.5200, L500.3400, L500.2500, L100.0100, L700.6800 #### [facility] [address] [place], [address] Monocytes/100 WBC (Bld) 3.3 % Normal 0-10 [facility] Comment on above: Performed By: #### L 501.2450, L501.5200, L500.3400, L500.2500, L100.0100, L700.6800 #### [facility] [address] [place], [address] Neutrophils/100 WBC (Bld) 58.4 % Normal 47-70 [facility] Comment on above: Performed By: #### L 501.2450, L501.5200, L500.3400, L500.2500, L100.0100, L700.6800 #### [facility] [address] [place], [address] Nucleated RBC (Bld) [#/Vol] 0 10*3/uL Normal 0-5 [facility] Comment on above: Performed By: #### L 501.2450, L501.5200, L500.3400, L500.2500, L100.0100, L700.6800 #### [facility] [address] [place], [address] Platelet mean volume (Bld) [Entitic vol] 8.8 fL Normal 6.2-12.0 [facility] Comment on above: Performed By: #### L 501.2450, L501.5200, L500.3400, L500.2500, L100.0100, L700.6800 #### [facility] [address] [place], [address] Platelets (Bld) [#/Vol] 346 10*3/uL Normal 150-450 [facility] Comment on above: Performed By: #### L 501.2450, L501.5200, L500.3400, L500.2500, L100.0100, L700.6800 #### [facility] [address] [place], [address] RBC (Bld) [#/Vol] 4.24 10*6/uL Normal 4.2-5.4 [facility] Comment on above: Performed By: #### L 501.2450, L501.5200, L500.3400, L500.2500, L100.0100, L700.6800 #### [facility] [address] [place], [address] RDW SD 42.7 fl Normal 35.1-43.9 [facility] Comment on above: Performed By: #### L 501.2450, L501.5200, L500.3400, L500.2500, L100.0100, L700.6800 #### [facility] [address] [place], [address] WBC (Bld) [#/Vol] 9.4 10*3/uL Normal 4.4-11.0 [facility] Comment on above: Performed By: #### L 501.2450, L501.5200, L500.3400, L500.2500, L100.0100, L700.6800 #### [facility] [address] [place], [address] Comprehensive Metabolic Prof ilon 07-08-2024 Albumin [Mass/Vol] 3.6 g/dL Normal 3.2-5.0 [facility] Comment on above: Performed By: #### L 501.2450, L501.5200, L500.3400, L500.2500, L100.0100, L700.6800 #### [facility] [address] [place], [address] Albumin/Globulin [Mass ratio] 1.0 {ratio} Normal 0.9-2.4 [facility] Comment on above: Performed By: #### L 501.2450, L501.5200, L500.3400, L500.2500, L100.0100, L700.6800 #### [facility] [address] [place], [address] ALK P 103 U/L Normal 45-117 [facility] Comment on above: Performed By: #### L 501.2450, L501.5200, L500.3400, L500.2500, L100.0100, L700.6800 #### [facility] [address] [place], [address] ALT [Catalytic activity/Vol] 32 U/L Normal 13-56 [facility] Comment on above: Performed By: #### L 501.2450, L501.5200, L500.3400, L500.2500, L100.0100, L700.6800 #### [facility] [address] [place], [address] AST [Catalytic activity/Vol] 20 U/L Normal 15-37 [facility] Comment on above: Performed By: #### L 501.2450, L501.5200, L500.3400, L500.2500, L100.0100, L700.6800 #### [facility] [address] [place], [address] Bilirubin [Mass/Vol] 1.40 mg/dL High 0.20-1.00 [facility] Comment on above: Result Comment: For patients on eltrombopag therapy, use of Dimension [place] TBIL is not recommended. Performed By: #### L 501.2450, L501.5200, L500.3400, L500.2500, L100.0100, L700.6800 #### [facility] [address] [place], [address] BUN/CRE 14.7 RATIO Normal 10-20 [facility] Comment on above: Performed By: #### L 501.2450, L501.5200, L500.3400, L500.2500, L100.0100, L700.6800 #### [facility] [address] [place], [address] CA,Total 9.0 mg/dL Normal 8.5-10.1 [facility] Comment on above: Performed By: #### L 501.2450, L501.5200, L500.3400, L500.2500, L100.0100, L700.6800 #### [facility] [address] [place], [address] Chloride [Moles/Vol] 108 mmol/L High 98-107 [facility] Comment on above: Performed By: #### L 501.2450, L501.5200, L500.3400, L500.2500, L100.0100, L700.6800 #### [facility] [address] [place], [address] CO2 [Moles/Vol] 25.0 mmol/L Normal 21.0-32.0 [facility] Comment on above: Performed By: #### L 501.2450, L501.5200, L500.3400, L500.2500, L100.0100, L700.6800 #### [facility] [address] [place], [place], [address] Creatinine [Mass/Vol] 0.68 mg/dL Normal 0.55-1.02 [facility] Comment on above: Result Comment: The validity of the calculated GFR GFRAA in patients over 70 years has not been determined. Clinical correlation is essential. Performed By: #### L 501.2450, L501.5200, L500.3400, L500.2500, L100.0100, L700.6800 #### [facility] [address] [place], [place], [address] EST GFR - AA 139 mL/min Normal >60 [facility] Comment on above: Result Comment: Afri can Niuean GFR Calc Performed By: #### L 501.2450, L501.5200, L500.3400, L500.2500, L100.0100, L700.6800 #### [facility] [address] [place], [place], [address] GAP 5 Normal 5-15 [facility] Comment on above: Performed By: #### L 501.2450, L501.5200, L500.3400, L500.2500, L100.0100, L700.6800 #### [facility] [address] [place], [place], [phone] GFR/1.73 sq M.predicted among non-blacks MDRD (S/P/Bld) [Vol rate/Area] 115 mL/min/{1.73_m2} Normal >60 [facility] Comment on above: Result Comment: Non- GFR Calc Performed By: #### L 501.2450, L501.5200, L500.3400, L500.2500, L100.0100, L700.6800 #### [facility] [address] [place], [address] Globulin (S) [Mass/Vol] 3.5 g/dL Normal 2.2-4.2 [facility] Comment on above: Performed By: #### L 501.2450, L501.5200, L500.3400, L500.2500, L100.0100, L700.6800 #### [facility] [address] [place], [address] Glucose [Mass/Vol] 93 mg/dL Normal 74-106 [facility] Comment on above: Performed By: #### L 501.2450, L501.5200, L500.3400, L500.2500, L100.0100, L700.6800 #### [facility] [address] [place], [address] Potassium [Moles/Vol] 3.7 mmol/L Normal 3.5-5.1 [facility] Comment on above: Performed By: #### L 501.2450, L501.5200, L500.3400, L500.2500, L100.0100, L700.6800 #### [facility] [address] [place], [address] Sodium [Moles/Vol] 138 mmol/L Normal 136-145 [facility] Comment on above: Performed By: #### L 501.2450, L501.5200, L500.3400, L500.2500, L100.0100, L700.6800 #### [facility] [address] [place], [address] T PROT 7.1 g/dL Normal 6.4-8.2 [facility] Comment on above: Performed By: #### L 501.2450, L501.5200, L500.3400, L500.2500, L100.0100, L700.6800 #### [facility] [address] [place], [address] Urea nitrogen [Mass/Vol] 10 mg/dL Normal 7-18 [facility] Comment on above: Performed By: #### L 501.2450, L501.5200, L500.3400, L500.2500, L100.0100, L700.6800 #### [facility] [address] [place], [address] Hepatitis B Surface Antibody on 07-08-2024 HEP B Surf Ab Non-Reactive Normal [facility] Comment on above: Result Comment: Non Reactive: Inconsistent with immunity less than <10 mIU/mL Reactive: Consistent with immunity greater than or equal to 10 mIU/mL Performed By: #### L 501.2450, L501.5200, L500.3400, L500.2500, L100.0100, L700.6800 #### [facility] [address] [place], [address] Hepatitis B Surface Antigeno n 07-08-2024 HEP B Surf Ag Non-Reactive Normal Nonreactive [facility] Comment on above: Performed By: #### L 501.2450, L501.5200, L500.3400, L500.2500, L100.0100, L700.6800 #### [facility] [address] [place], [address] Hepatitis C Antibodyon 07-08 Hepatitis C AB Non-Reactive Normal Nonreactive [facility] Comment on above: Result Comment: Non Reactive: < 0.8 Equivocal: >/= 0.8 to < 1.0 Reactive: >/= 1.0 The CDC requires that a reactive/equivocal HCV antibody result be sent out for confirmation. HCV Quant by PCR testing. Performed By: #### L 501.2450, L501.5200, L500.3400, L500.2500, L100.0100, L700.6800 #### [facility] [address] [place], [place], [address] Rheumatoid Factoron 07-08-19 25 RHEUMATOID FAC < 10.0 Normal <15 [facility] Comment on above: Performed By: #### L 501.2450, L501.5200, L500.3400, L500.2500, L100.0100, L700.6800 #### [facility] [address] [facility]. [place], [place], [id number] CRP, High Sensitivity [id number] on 06-30-2024 CRP, HIGH SENS 16.68 mg/L High 0.00-3.00 [facility] Comment on above: Result Comment: Rela tive Risk for Future Cardiovascular Event Low <1.00 Average 1.00 - 3.00 High >3.00 Performed at: [facility] [address] [id number] Credit Intern: Que Cruz PhD, Phone: [phone] Performed By: #### L 501.2450, L501.5200, L500.3400, L500.2500, L100.0100, L700.6800 #### [facility] [address] [place], [place], [id number] Lyme Screen W/Reflex WBon LYME SCREEN Ab Negative Normal Negative [facility] Comment on above: Result Comment: Lyme antibodies not detected. Reflex testing is not indicated. No laboratory evidence of infection with B. burgdorferi (Lyme disease). Negative results may occur in patients recently infected (less than or equal to 14 days) with B. burgdorferi. If recent infection is suspected, repeat testing on a new sample collected in 7 to 14 days is recommended. Performed at: [facility] [address] [id number] Credit Intern: Que Cruz PhD, Phone: [phone] Performed By: #### L 501.2450, L501.5200, L500.3400, L500.2500, L100.0100, L700.6800 #### [facility] [address] [facility] 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 She states that this is starting from an impacted wisdom tooth on the right lower side. [facility] Medical History EP (ectopic ) Palpitations Wears [...] / O (more content not included)... Normal [facility] Office Visit Reporton 2023 Office Visit Report [facility] [address] [place] [address] OFFICE VISIT Date of Service: 06/23/24 MR#: [id number] Acct: [id number] Patient: ALINA MALIK Rep #: [id number] : 2005 Provider: MONICA Kate Age/Sex: 19/F Location: [facility] Status: Signed Intake Vital Signs 03/08/24 00:28 [...] for a month - has appointment at [facility] dental clinic. I recommended she call [...] new complications, the patient should follow up [id number] with a clinician of the appropriate level of care. Medications: New amoxicillin-pot clavulanate 875-125 mg 1 TAB PO Q12H 14 tabs 0RF 06/23/24 0704 Date Christian Franchesca Tabor Signature: Date (if applicable) CC: Normal [facility] ALEJANDRINA Comprehensive Panelon ALEJANDRINA TABLE Comment Normal . [facility] Comment on above: Result Comment: Auto antibody [...] Sm (anti-Bundy) SLE 15 - 30% --------- CASINO HOST Mixed Connective Tissue Disease 95% (U1 nRNP, SLE 30 - 50% anti-ribonucleoprotein) Polymyositis and/or Dermatomyositis 20% --------- Scl-70 (antiDNA Scleroderma (diffuse) 20 - 35% topoisomerase) Crest 13% --------- Jaycee-1 Polymyositis and/or Dermatomyositis 20 - 40% --------- Centromere B Scleroderma - Crest variant 80% Performed By: #### L 501.5200, L700.6800, L500.2500, L100.0100, L501.9520 #### [facility] [place], [address] ANTI-CENT B AB <0.2 Normal 0.0-0.9 [facility] Comment on above: Performed By: #### L 501.5200, L700.6800, L500.2500, L100.0100, L501.9520 #### [facility] [address] [place], [address] ANTI-DNA (DS)AB 1 IU/mL Normal 0-9 [facility] Comment on above: Result Comment: Nega tive <5 Equivocal 5 - 9 Positive >9 Performed By: #### L 501.5200, L700.6800, L500.2500, L100.0100, L501.9520 #### [facility] [address] [place], [address] ANTI-JAYCEE-1 <0.2 Normal 0.0-0.9 [facility] Comment on above: Performed By: #### L 501.5200, L700.6800, L500.2500, L100.0100, L501.9520 #### [facility] [address] [place], [address] ANTI-SS-A < 0.2 Normal 0.0-0.9 [facility] Comment on above: Performed By: #### L 501.5200, L700.6800, L500.2500, L100.0100, L501.9520 #### [facility] [address] [place], [address] ANTI-SS-B < 0.2 Normal 0.0-0.9 [facility] Comment on above: Performed By: #### L 501.5200, L700.6800, L500.2500, L100.0100, L501.9520 #### [facility] [address] [place], [address] ANTICHROMATIN 0.2 AI Normal 0.0-0.9 [facility] Comment on above: Performed By: #### L 501.5200, L700.6800, L500.2500, L100.0100, L501.9520 #### [facility] [address] [place], [address] ANTISCLERODERM <0.2 Normal 0.0-0.9 [facility] Comment on above: Performed By: #### L 501.5200, L700.6800, L500.2500, L100.0100, L501.9520 #### [facility] [address] [place], [address] CASINO HOST Ab 0.2 AI Normal 0.0-0.9 [facility] Comment on above: Performed By: #### L 501.5200, L700.6800, L500.2500, L100.0100, L501.9520 #### [facility] [address] [place], [address] BUNDY Ab <0.2 Normal 0.0-0.9 [facility] Comment on above: Performed By: #### L 501.5200, L700.6800, L500.2500, L100.0100, L501.9520 #### [facility] [address] [place], [address] CCP IgG Antibodieson 024 CCP IgG Ab. 0 units Normal 0-19 [facility] Comment on above: Result Comment: Nega tive <20 Weak positive 20 - 39 Moderate positive 40 - 59 Strong positive >59 Performed at: [facility] [address] [id number] Credit Intern: Que Cruz PhD, Phone: [phone] Performed By: #### L 501.5200, L700.6800, L500.2500, L100.0100, L501.9520 #### [facility] [address] [place], [address] CRP, High Sensitivity [id number] on 06-11-2024 CRP, HIGH SENS 26.95 mg/L High 0.00-3.00 [facility] Comment on above: Result Comment: Resu lts confirmed on dilution. Relative Risk for Future Cardiovascular Event Low <1.00 Average 1.00 - 3.00 High >3.00 Performed at: [address] [id number] Credit Intern: Que Cruz PhD, Phone: [phone] Performed By: #### L 501.5200, L700.6800, L500.2500, L100.0100, L501.9520 #### [facility] [address] [place], [address] Vitamin B12on 06-11-2024 Cobalamin (Vitamin B12) [Mass/Vol] 721 pg/mL Normal 211-911 [facility] Comment on above: Performed By: #### L 501.5200, L700.6800, L500.2500, L100.0100, L501.9520 #### [facility] [address] [place], [address] Vitamin D,25 Hydroxyon 06-11 Vitamin D 25-OH 7.3 ng/mL Normal [facility] Comment on above: Result Comment: Janett min D 25(OH) Status Range Deficiency <20 ng/mL (50nmol/L) Insufficiency 20 - 30 ng/mL (50 - 75 nmol/L) Sufficiency 30 - 100 ng/mL (75 - 250 nmol/L) Toxicity >100 ng/mL (>250 nmol/L) Performed By: #### L 501.5200, L700.6800, L500.2500, L100.0100, L501.9520 #### [facility] [address] [place], [address] CBC W/Diff, Automatedon 05-24 Absolute Lymph 3.15 X10 3/uL Normal 0.83-4.51 [facility] Comment on above: Performed By: #### L 501.5200, L700.6800, L500.2500, L100.0100, L501.9520 #### [facility] [address] [place], [address] Absolute Neut 5.1 X10 3/uL Normal 2.0-7.7 [facility] Comment on above: Performed By: #### L 501.5200, L700.6800, L500.2500, L100.0100, L501.9520 #### [facility] [address] [place], [address] Basophils/100 WBC (Bld) 1.0 % Normal 0-1 [facility] Comment on above: Performed By: #### L 501.5200, L700.6800, L500.2500, L100.0100, L501.9520 #### [facility] [address] [place], [address] Eosinophils/100 WBC (Bld) 3.7 % Normal 0-5 [facility] Comment on above: Performed By: #### L 501.5200, L700.6800, L500.2500, L100.0100, L501.9520 #### [facility] [address] [place], [address] Erythrocyte distribution width (RBC) [Ratio] 14.1 % Normal 11.6-14.6 [facility] Comment on above: Performed By: #### L 501.5200, L700.6800, L500.2500, L100.0100, L501.9520 #### [facility] [address] [place], [address] Hematocrit (Bld) [Volume fraction] 36.5 % Low 37-47 [facility] Comment on above: Performed By: #### L 501.5200, L700.6800, L500.2500, L100.0100, L501.9520 #### [facility] [address] [place], [address] Hemoglobin (Bld) [Mass/Vol] 12.1 g/dL Normal 12.0-15.0 [facility] Comment on above: Performed By: #### L 501.5200, L700.6800, L500.2500, L100.0100, L501.9520 #### [facility] [address] [place], [address] IG% 0.600 Normal 0.0-0.9 [facility] Comment on above: Result Comment: IG% - Immature Granulocytes (promyelocytes, myelocytes and metamyelocytes) > 1% indicates that a LEFT SHIFT is Present. Performed By: #### L 501.5200, L700.6800, L500.2500, L100.0100, L501.9520 #### [facility] [address] [place], [address] Lymphocytes/100 WBC (Bld) 35.1 % Normal 19-41 [facility] Comment on above: Performed By: #### L 501.5200, L700.6800, L500.2500, L100.0100, L501.9520 #### [facility] [address] [place], [address] MCH (RBC) [Entitic mass] 27.9 pg Normal 27.0-32.0 [facility] Comment on above: Performed By: #### L 501.5200, L700.6800, L500.2500, L100.0100, L501.9520 #### [facility] [address] [place], [address] MCHC (RBC) [Mass/Vol] 33.2 g/dL Normal 32-36 [facility] Comment on above: Performed By: #### L 501.5200, L700.6800, L500.2500, L100.0100, L501.9520 #### [facility] [address] [place], [address] MCV (RBC) [Entitic vol] 84.3 fL Normal 81-99 [facility] Comment on above: Performed By: #### L 501.5200, L700.6800, L500.2500, L100.0100, L501.9520 #### [facility] [address] [place], [address] Monocytes/100 WBC (Bld) 3.2 % Normal 0-10 [facility] Comment on above: Performed By: #### L 501.5200, L700.6800, L500.2500, L100.0100, L501.9520 #### [facility] [address] [place], [address] Neutrophils/100 WBC (Bld) 56.4 % Normal 47-70 [facility] Comment on above: Performed By: #### L 501.5200, L700.6800, L500.2500, L100.0100, L501.9520 #### [facility] [address] [place], [address] Nucleated RBC (Bld) [#/Vol] 0 10*3/uL Normal 0-5 [facility] Comment on above: Performed By: #### L 501.5200, L700.6800, L500.2500, L100.0100, L501.9520 #### [facility] [address] [place], [address] Platelet mean volume (Bld) [Entitic vol] 8.7 fL Normal 6.2-12.0 [facility] Comment on above: Performed By: #### L 501.5200, L700.6800, L500.2500, L100.0100, L501.9520 #### [facility] [address] [place], [address] Platelets (Bld) [#/Vol] 316 10*3/uL Normal 150-450 [facility] Comment on above: Performed By: #### L 501.5200, L700.6800, L500.2500, L100.0100, L501.9520 #### [facility] [address] [place], [address] RBC (Bld) [#/Vol] 4.33 10*6/uL Normal 4.2-5.4 [facility] Comment on above: Performed By: #### L 501.5200, L700.6800, L500.2500, L100.0100, L501.9520 #### [facility] [address] [place], [address] RDW SD 43.4 fl Normal 35.1-43.9 [facility] Comment on above: Performed By: #### L 501.5200, L700.6800, L500.2500, L100.0100, L501.9520 #### [facility] [address] [place], [address] WBC (Bld) [#/Vol] 9.0 10*3/uL Normal 4.4-11.0 [facility] Comment on above: Performed By: #### L 501.5200, L700.6800, L500.2500, L100.0100, L501.9520 #### [facility] [address] [place], [address] Comprehensive Metabolic [facility] 06-09-2024 Albumin [Mass/Vol] 3.2 g/dL Normal 3.2-5.0 [facility] Comment on above: Performed By: #### L 501.5200, L700.6800, L500.2500, L100.0100, L501.9520 #### [facility] [address] [place], [address] Albumin/Globulin [Mass ratio] 0.9 {ratio} Normal 0.9-2.4 [facility] Comment on above: Performed By: #### L 501.5200, L700.6800, L500.2500, L100.0100, L501.9520 #### [facility] [address] [place], [address] ALK P 118 U/L High 45-117 [facility] Comment on above: Performed By: #### L 501.5200, L700.6800, L500.2500, L100.0100, L501.9520 #### [facility] [address] [place], [address] ALT [Catalytic activity/Vol] 25 U/L Normal 13-56 [facility] Comment on above: Performed By: #### L 501.5200, L700.6800, L500.2500, L100.0100, L501.9520 #### [facility] [address] [place], [address] AST [Catalytic activity/Vol] 23 U/L Normal 15-37 [facility] Comment on above: Performed By: #### L 501.5200, L700.6800, L500.2500, L100.0100, L501.9520 #### [facility] [address] [place], [address] Bilirubin [Mass/Vol] 0.60 mg/dL Normal 0.20-1.00 [facility] Comment on above: Result Comment: For patients on eltrombopag therapy, use of Dimension [place] TBIL is not recommended. Performed By: #### L 501.5200, L700.6800, L500.2500, L100.0100, L501.9520 #### [facility] [address] [place], [address] BUN/CRE 18.3 RATIO Normal 10-20 [facility] Comment on above: Performed By: #### L 501.5200, L700.6800, L500.2500, L100.0100, L501.9520 #### [facility] [address] [place], [address] CA,Total 8.7 mg/dL Normal 8.5-10.1 [facility] Comment on above: Performed By: #### L 501.5200, L700.6800, L500.2500, L100.0100, L501.9520 #### [facility] [address] [place], [address] Chloride [Moles/Vol] 108 mmol/L High 98-107 [facility] Comment on above: Performed By: #### L 501.5200, L700.6800, L500.2500, L100.0100, L501.9520 #### [facility] [address] [place], [address] CO2 [Moles/Vol] 25.0 mmol/L Normal 21.0-32.0 [facility] Comment on above: Performed By: #### L 501.5200, L700.6800, L500.2500, L100.0100, L501.9520 #### [facility] [address] [place], [address] Creatinine [Mass/Vol] 0.77 mg/dL Normal 0.55-1.02 [facility] Comment on above: Result Comment: The validity of the calculated GFR GFRAA in patients over 70 years has not been determined. Clinical correlation is essential. Performed By: #### L 501.5200, L700.6800, L500.2500, L100.0100, L501.9520 #### [facility] [address] [place], [address] EST GFR - AA 122 mL/min Normal >60 [facility] Comment on above: Result Comment: Afri can Niuean GFR Calc Performed By: #### L 501.5200, L700.6800, L500.2500, L100.0100, L501.9520 #### [facility] [address] [place], [address] GAP 5 Normal 5-15 [facility] Comment on above: Performed By: #### L 501.5200, L700.6800, L500.2500, L100.0100, L501.9520 #### [facility] [address] [place], [address] GFR/1.73 sq M.predicted among non-blacks MDRD (S/P/Bld) [Vol rate/Area] 101 mL/min/{1.73_m2} Normal >60 [facility] Comment on above: Result Comment: Non- GFR Calc Performed By: #### L 501.5200, L700.6800, L500.2500, L100.0100, L501.9520 #### [facility] [address] [place], [address] Globulin (S) [Mass/Vol] 3.6 g/dL Normal 2.2-4.2 [facility] Comment on above: Performed By: #### L 501.5200, L700.6800, L500.2500, L100.0100, L501.9520 #### [facility] [address] [place], [address] Glucose [Mass/Vol] 97 mg/dL Normal 74-106 [facility] Comment on above: Performed By: #### L 501.5200, L700.6800, L500.2500, L100.0100, L501.9520 #### [facility] [address] [place], [address] Potassium [Moles/Vol] 4.0 mmol/L Normal 3.5-5.1 [facility] Comment on above: Performed By: #### L 501.5200, L700.6800, L500.2500, L100.0100, L501.9520 #### [facility] [address] [place], [address] Sodium [Moles/Vol] 138 mmol/L Normal 136-145 [facility] Comment on above: Performed By: #### L 501.5200, L700.6800, L500.2500, L100.0100, L501.9520 #### [facility] [address] [place], [address] T PROT 6.8 g/dL Normal 6.4-8.2 [facility] Comment on above: Performed By: #### L 501.5200, L700.6800, L500.2500, L100.0100, L501.9520 #### [facility] [address] [place], [address] Urea nitrogen [Mass/Vol] 14 mg/dL Normal 7-18 [facility] Comment on above: Performed By: #### L 501.5200, L700.6800, L500.2500, L100.0100, L501.9520 #### [facility] [address] [place], [address] Erythrocyte Sed Rateon 06-09 SED RATE 16 mm/hr Normal 0-30 [facility] Comment on above: Performed By: #### L 501.5200, L700.6800, L500.2500, L100.0100, L501.9520 #### [facility] [address] [place], [address] Rheumatoid Factoron 06-09-20 24 RHEUMATOID FAC < 10.0 Normal <15 [facility] Comment on above: Performed By: #### L 501.5200, L700.6800, L500.2500, L100.0100, L501.9520 #### [facility] [address] [place], [address] Thyroid Stim Hormone (TSH)on 06-09-2024 TSH 1.980 uIU/mL Normal 0.358-3.740 [facility] Comment on above: Performed By: #### L 501.5200, L700.6800, L500.2500, L100.0100, L501.9520 #### [facility] [address] [place], [address] C-REACTIVE PROTEINon 024 CRP 1.87 mg/dl High 0.00 - 0.90 [facility] Comment on above: Performed By: #### 2 52622 #### [facility],[address] [place] [address] CBC + DIFFon 05-03-2024 Baso # 0.02 x10EE3/UL Normal 0.00 - 0.10 [facility] Comment on above: Performed By: #### 2 18612 #### [facility],[address] [place] [address] Basophils/100 WBC (Bld) 0.2 % Normal 0.0 - 2.0 [facility] Comment on above: Performed By: #### 2 81570 #### [facility],[address] [place] [address] CBC + DIFF Normal [facility] Comment on above: Result Comment: CBC- COMPLETE BLOOD COUNT Performed By: #### 2 21943 #### [facility],[address] [place] [address] EO # 0.31 x10EE3/UL Normal 0.00 - 0.50 [facility] Comment on above: Performed By: #### 2 68590 #### [facility],[address] [place] [address] Eosinophils/100 WBC (Bld) 2.4 % Normal 0.0 - 7.0 [facility] Comment on above: Performed By: #### 2 80782 #### [facility],[address] [place] [address] Erythrocyte distribution width (RBC) [Ratio] 14.4 % Normal 12.0 - 15.6 [facility] Comment on above: Performed By: #### 2 90224 #### [facility],[address] [place] [address] Hematocrit (Bld) [Volume fraction] 38.9 % Normal 34.0 - 46.0 [facility] Comment on above: Performed By: #### 2 28111 #### [facility],[address] [place] [address] Hemoglobin (Bld) [Mass/Vol] 13.1 g/dL Normal 12.0 - 16.0 [facility] Comment on above: Performed By: #### 2 84623 #### [facility],[address] [place] [address] Lymph # 3.46 x10EE3/UL High 0.80 - 2.80 [facility] Comment on above: Performed By: #### 2 40049 #### [facility],[address] [place] [address] Lymphocytes/100 WBC (Bld) 27.4 % Normal 20.0 - 45.0 [facility] Comment on above: Performed By: #### 2 64776 #### [facility],[address] [place] [address] MANUAL DIFF N/A Normal [facility] Comment on above: Performed By: #### 2 46255 #### [facility],[address] [place] [address] MCH (RBC) [Entitic mass] 28 pg Normal 27 - 33 [facility] Comment on above: Performed By: #### 2 87012 #### [place] [address] MCHC 34 X10 3 Normal 32 - 36 [facility] Comment on above: Performed By: #### 2 62501 #### [facility],[address],[place] [address] MCV (RBC) [Entitic vol] 83 fL Normal 80 - 99 [facility] Comment on above: Performed By: #### 2 43504 #### [facility],[address] [place] [address] Dale # 0.32 x10EE3/UL Normal 0.20 - 1.00 [facility] Comment on above: Performed By: #### 2 85050 #### [place] [address] MONOS % 2.5 % Normal 0.0 - 10.0 [facility] Comment on above: Performed By: #### 2 96691 #### [facility],[address] [place] [address] Morphology Julian (Bld) [Interp] N/A Normal [facility] Comment on above: Performed By: #### 2 94200 #### [facility],[address] [place] [address] Neut # 8.53 x10EE3/UL High 1.50 - 7.10 [facility] Comment on above: Performed By: #### 2 38978 #### [place] [address] Neutrophils/100 WBC (Bld) 67.5 % Normal 46.0 - 76.0 [facility] Comment on above: Performed By: #### 2 51850 #### [place] [address] PLATELET 375 x10EE3/UL Normal 150 - 450 [facility] Comment on above: Performed By: #### 2 11863 #### [place] [address] Platelet mean volume (Bld) [Entitic vol] 7.0 fL Normal 6.6 - 10.5 [facility] Comment on above: Result Comment: AUTO MATED DIFFERENTIAL Performed By: #### 2 84644 #### [place] [id number] RBC 4.69 x 10EE6/UL Normal 4.10 - 5.30 [facility] Comment on above: Performed By: #### 2 49246 #### [facility],[address] [place] [address] WBC 12.6 x 10EE3/UL High 4.5 - 10.8 [facility] Comment on above: Performed By: #### 2 04468 #### [facility],[address] [place] [address] CMP with eGFRon 05-03-2024 AGE 19 years Normal [facility] Comment on above: Performed By: #### 2 02525 ####[facility],[address] [place] [address] Albumin [Mass/Vol] 3.3 g/dL Low 3.4 - 5.0 [facility] Comment on above: Performed By: #### 2 62700 ####[facility],[address] [place] [address] Albumin/Globulin [Mass ratio] 0.8 {ratio} Low 0.9 - 1.6 [facility] Comment on above: Performed By: #### 2 98470 ####[facility],[address] [place] [address] ALK PHOS 114 U/L Normal 46 - 116 [facility] Comment on above: Performed By: #### 2 23407 ####[facility],[address] [place] [address] ALT [Catalytic activity/Vol] 17 U/L Normal 16 - 63 [facility] Comment on above: Performed By: #### 2 00041 ####[facility],[address] [place] [address] Anion gap [Moles/Vol] 13 mmol/L Normal 10 - 20 [facility] Comment on above: Performed By: #### 2 01434 ####[facility],[address] [place] [address] AST [Catalytic activity/Vol] 21 U/L Normal 13 - 39 [facility] Comment on above: Performed By: #### 2 37948 ####[facility],[address] [place] [address]65 B/C RATIO 12 ratio Normal 0 - 30 [facility] Comment on above: Performed By: #### 2 95243 ####[facility],[address] [place] [address]18[address] Bilirubin [Mass/Vol] 0.8 mg/dL Normal 0.2 - 1.0 [facility] Comment on above: Performed By: #### 2 10843 ####[facility],[address] [place] [address] Calcium [Mass/Vol] 8.5 mg/dL Normal 8.5 - 10.1 [facility] Comment on above: Performed By: #### 2 40380 ####[facility],[address] [place] [address] Chloride [Moles/Vol] 105 mmol/L Normal 98 - 107 [facility] Comment on above: Performed By: #### 2 61343 ####[facility],[address] [place] [address] 540[address] CMP with eGFR Normal [facility] Comment on above: Result Comment: COMP REHENSIVE METABOLIC PANEL Performed By: #### 2 05962 ####[facility],[address] [place] [address]89[address] CO2 [Moles/Vol] 27.7 mmol/L Normal 21.0 - 32.0 [facility] Comment on above: Performed By: #### 2 96205 ####[facility],[address] [place] [address] Creatinine [Mass/Vol] 0.73 mg/dL Normal 0.55 - 1.02 [facility] Comment on above: Performed By: #### 2 18354 ####[facility],[address] [place] [address] GFR/1.73 sq M.predicted among non-blacks MDRD (S/P/Bld) [Vol rate/Area] mL/min/{1.73_m2} Normal 60 - 999 [facility] Comment on above: Performed By: #### 2 76002 ####[facility],[address] [place] [address] 27900 Result Comment: ACCO RDING TO THE NATIONAL KIDNEY DISEASE EDUCATION PROGRAM(NKDE), A NORMAL eGFR IS A VALUE GREATER THAN OR EQUAL TO 60 ML/MIN/1.73 SQ METERS. CHRONIC KIDNEY DISEASE: <60mL/MIN/1.73 SQ METERS KIDNEY FAILURE: <15mL/MIN/1.73 SQ METERS THIS TEST SHOULD ONLY BE USED FOR PATIENTS 18 YEARS OF AGE AND OLDER. Globulin (S) [Mass/Vol] 4.0 g/dL High 1.5 - 3.8 [facility] Comment on above: Performed By: #### 2 44253 ####[facility],[address] [place] [address]885 Glucose [Mass/Vol] 95 mg/dL Normal 74 - 106 [facility] Comment on above: Performed By: #### 2 73511 ####[facility],[address] [place] [address]4836 Potassium [Moles/Vol] 3.6 mmol/L Normal 3.5 - 5.1 [facility] Comment on above: Performed By: #### 2 75531 ####[facility],[address] [place] [address] 50263 Protein [Mass/Vol] 7.3 g/dL Normal 6.4 - 8.2 [facility] Comment on above: Performed By: #### 2 32135 ####[facility],[address] [place] [address] 21046 Sodium [Moles/Vol] 142 mmol/L Normal 136 - 145 [facility] Comment on above: Performed By: #### 2 90719 ####[facility],[address] [place] [address] 10595 Urea nitrogen [Mass/Vol] 9 mg/dL Normal 7 - 18 [facility] Comment on above: Performed By: #### 2 76111 ####[facility],[address] [place] [address] 89951 CPKon 05-03-2024 CPK 133 U/L Normal 26 - 192 [facility] Comment on above: Performed By: #### 2 53433 #### [facility],[address] [place] [address] CERVICAL W/O CONTRASTon 1 07-03-2023 CT CERVICAL W/O CONTRAST [place] [id number] Patient: ALINA MALIK Phone#: : 2005 Age: 19 Gender: F Pt. Type: ER Account: [id number] [facility]: [facility] Ordering: CARLOTA CHOW Exam Date: 05/03/2024/4:37 Family Phys: Charge Code: [id number] Physician: [place] Order #: [id number] Dose#: 15.5 mGy PROCEDURE: CT CERVICAL WITHOUT [...] Wren MD on 05/03/2024 at 17:40 Normal [facility] ED MED ADMINISTRATION DETAIL on 05-03-2024 ED MED ADMINISTRATION DETAIL Head Kiln Operator Medication Administration Record [address] [place] [address] [id number] 05/02/2024 Patient: ALINA MALIK Sex: Female : [...] - 03:36 Jonny Burks R.N. Scanned 05:21 05/03 Medication Discontinued: bag #1 infused. Total amount infused: 1000 mL. IV patency established. IV site checked: no pain, redness, or swelling. IV flushed thoroughly post-medication administration. - 06:21 Andrea Sanchez R.N. KetorOLAC 03:37 11 KetorOLAC (Toradol) [...] 03:37 Andrea Sanchez R.N. 1 of 2 Head Kiln Operator Medication Ordered Medication Administration Date/Time Dexamethasone 03:36 [...] Andrea Sanchez R.N. 2 of 2 Normal [facility] ED NURSES CLINICAL NOTEon ED NURSES CLINICAL NOTE Nurse Narrative Nurse Clinical [address] [place] [address] [id number] 05/02/2024 Patient: ALINA MALIK Sex: Female : 2005 Age: 19y Disposition: Discharge to Home Disposition Decision Time: 05:57 05/03/2024 Departure Time: 06:11 05/03/2024 TRIAGE Arrived by private vehicle. Historian: patient. Triage time: 00:01 05/03/2024. Acuity: LEVEL 3. Chief Complaint: (Left Arm Pain). SEPSIS SCREEN: NEGATIVE. SIRS criteria negative. No possible sources of infection. -- 00:08 05/03/24 NATALIA Cunha R.N. 00:08 05/03/24. BP: 145/96 MAP: 112. HR: 83. RR: 14. O2 saturation: 99% Temperature: 98.2 F. Pain level now 7/10. -- 00:08 05/03/24 NATALIA Cunha R.N. Measurements: 00:06 05/03/24 Wt: 99.8 kg -- 00:06 05/03/24 NATALIA Cunha R.N. Medications: unable to obtain home medications -- 00:05/03/24 NATALIA Cunha R.N. Allergies: Wellbutrin -- 00:05/03/24 NATALIA Cunha R.N. 1 of 4 Nurse Narrative Problems: Asthma -- 00:03 05/03/24 NATALIA Cunha R.N. Depression -- 00:04 05/03/24 NATALIA Cunha R.N. Anxiety disorder -- 00:05/03/24 [...] Patient does not have advanced directive. -- 00:08 05/03/24 NATALIA Cunha R.N. PHYSICAL ASSESSMENT 03:23 05/03/24. [...] warm and dry. Normal skin turgor. -- 03:23 05/03/24 NATALIA Sanchez R.N. NURSING PROGRESS NOTES 03:05/03/24. BP: 145/96 MAP: 112. HR: 83. RR: 14. O2 saturation: 99% Temperature: 98.2 F. Pain level now 710. -- 03:23 05/03/24 NATALIA Sanchez R.N. 03:24 [...] Medication Wa (more content not included)... Normal [facility] ED ORDER SHEET (CPOE ONLY)on 05-03-2024 ED ORDER SHEET (CPOE ONLY) Order Sheet Order Sheet [facility] [address] [place] [address] [id number] 05/02/2024 Patient: ALINA MALIK Sex: Female : [...] D.O. 05/03/2024 05/03/2024 Andrea Burks R.N. R.N. Reason for ordering with alerts: Clinical consideration [...] (05/03/2024 07:02 EST)] 2 of 2 Normal [facility] ED PHYSICIAN CLINICAL REPORT on 05-03-2024 ED PHYSICIAN CLINICAL REPORT Narrative Physician Clinical Narrative [address] [address] [id number] 05/02/2024 Patient: ALINA MALIK Sex: Female : [...] notes have been reviewed. PHYSICAL EXAM of Narrative Appearance: Alert. Oriented X3. No acute [...] brachioradialis reflexes. +2/ 4 bilaterally. 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 LABS, X-RAYS, AND EKG [...] 10 Narr (more content not included)... Normal [facility] ED SUPER BILLon 05-03-2024 [facility] [place] [id number] [facility] [place] [address] [id number] 05/02/2024 Patient: ALINA MALIK Sex: Female : 2005 Age: 19y Item Facility Professional Category Description Code Code Quantity Fee Total Nurse/E/M EMERGENCY 787888 1 $0.00 $0.00 DEPARTMENT VISIT HIGH/URGENT SEVERITY (81309-76) Nurse/IV/IM/Infusions Hydration 237992 2 $0.00 $0.00 additional hour (81065) Nurse/IV/IM/Infusions IVP additional 995275 1 $0.00 $0.00 push (88636) Nurse/IV/IM/Infusions IVP initial 538202 1 $0.00 $0.00 (74996) Grand Total $0.00 Providers Carlota Chow D.O. Chief Complaint 1 of 2 Superbill UPPER EXTREMITY PAIN. Principal Diagnosis Chronic upper extremity pain involving the left forearm. Neuropathy. ICD-10 Codes G62.9: Polyneuropathy, unspecified M79.632: Pain in left forearm 2 of 2 Normal [facility] ED VISIT SUMMARYon ED VISIT SUMMARY Visit Overview Visit Overview [address] [address] [id number] 05/02/2024 Patient: ALINA MALIK Sex: Female : [...] LEFT FOREARM NEUROPATHY 3 of 3 Normal [facility] ED VITALS FLOW SHEETon 05-03 ED VITALS FLOW SHEET Vitals Vital Sign Flow Sheet [facility] [facility] [address] [place] [address] [phone] 05/02/2024 Patient: ALINA MALIK Sex: Female : [...] 98.2 F 7 1 of 1 Normal [facility] SERUM QUALon 05-03 EXTERNAL QC DONE? YES Normal [facility] Comment on above: Performed By: #### 2 [id number] ####[facility],[address] [place] [address] INTERNAL QC PASS Normal [facility] Comment on above: Performed By: #### 2 [id number] ####[facility],[address] [place] [address] SER Negative Normal NEGATIVE [facility] Comment on above: Performed By: #### 2 [id number] ####[facility],[address] [place] [address] CNOVon 03-30-2024 CNOV Office Visit (UCWSTR ) ALINA MALIK ([id number]) 1 F Date Time Provider Department 03/30/24 5:15 PM BHAVANI CROSS [facility] During your visit today, we recorded the following information about you: Bhavani Cross PA 03/30/2024 5:10 PM Signed 19-year-old female presents for shakiness, lightheadedness starting today. Patient was working at the [employer] and she started to feel hot and [...] Status:Closed by BHAVANI CROSS on 03/30/24 Normal [facility] Acute Abdomen [facility] Cheston Acute Abdomen Inc Chest [facility] Imaging Services [address], [place] [id number] Acute Abdomen [facility] Chest MR#: [id number] Acct: [id number] Name: ALINA MALIK Rep #: [id number] : 2005 F 19 From: Conrado Baires MD PCP: Nikki Olsen [facility], SENIOR IT SECURITY ANALYST-C Status: REG ER Study: Acute Abdomen Inc Chest Date of Exam: 03/08/24 Exam# [id number] Ordering Dr: [place] [id number] EXAM: XR ABDOMEN, 2 VIEWS AND XR [...] Baires MD at 1:50 EDT , CC: [facility] SENIOR IT SECURITY ANALYST-C Nikki Olsen; Remy Sawyer DO Childcare Teacher: Signed Normal [facility] Basic Metabolic Profile (BMP )on 03-08-2024 BUN/CRE 12.9 RATIO Normal 10-20 [facility] Comment on above: Performed By: #### L 501.2450, L501.5200, L500.3400, L500.2500, L100.0100, L700.6800 #### [facility] Laboratory [address] [place], [place], [id number] CA,Total 9.1 mg/dL Normal 8.5-10.1 [facility] Comment on above: Performed By: #### L 501.2450, L501.5200, L500.3400, L500.2500, L100.0100, L700.6800 #### [facility] [address] [place], [address] Chloride [Moles/Vol] 110 mmol/L High 98-107 [facility] Comment on above: Performed By: #### L 501.2450, L501.5200, L500.3400, L500.2500, L100.0100, L700.6800 #### [facility] [address] [place], [address] CO2 [Moles/Vol] 26.0 mmol/L Normal 21.0-32.0 [facility] Comment on above: Performed By: #### L 501.2450, L501.5200, L500.3400, L500.2500, L100.0100, L700.6800 #### [facility] [address] [place], [address] Creatinine [Mass/Vol] 0.77 mg/dL Normal 0.55-1.02 [facility] Comment on above: Result Comment: The validity of the calculated GFR GFRAA in patients over 70 years has not been determined. Clinical correlation is essential. Performed By: #### L 501.2450, L501.5200, L500.3400, L500.2500, L100.0100, L700.6800 #### [facility] [address] [place], [address] ECRCL 152.31 ml/min Normal [facility] Comment on above: Performed By: #### L 501.2450, L501.5200, L500.3400, L500.2500, L100.0100, L700.6800 #### [facility] [address] [place], [address] EST GFR - AA 121 mL/min Normal >60 [facility] Comment on above: Result Comment: Afri can Niuean GFR Calc Performed By: #### L 501.2450, L501.5200, L500.3400, L500.2500, L100.0100, L700.6800 #### [facility] [address] [place], [address] GAP 6 Normal 5-15 [facility] Comment on above: Performed By: #### L 501.2450, L501.5200, L500.3400, L500.2500, L100.0100, L700.6800 #### [facility] [address] [place], [address] GFR/1.73 sq M.predicted among non-blacks MDRD (S/P/Bld) [Vol rate/Area] 100 mL/min/{1.73_m2} Normal >60 [facility] Comment on above: Result Comment: Non- GFR Calc Performed By: #### L 501.2450, L501.5200, L500.3400, L500.2500, L100.0100, L700.6800 #### [facility] [address] [place], [address] Glucose [Mass/Vol] 118 mg/dL High 74-106 [facility] Comment on above: Result Comment: Fast ing Glucose result from 100 to 125 mg/dL suggests IMPAIRED HOMEOSTASIS per A.D.A. criteria. Performed By: #### L 501.2450, L501.5200, L500.3400, L500.2500, L100.0100, L700.6800 #### [facility] [address] [place], [address] Potassium [Moles/Vol] 3.8 mmol/L Normal 3.5-5.1 [facility] Comment on above: Performed By: #### L 501.2450, L501.5200, L500.3400, L500.2500, L100.0100, L700.6800 #### [facility] [address] [place], [address] Sodium [Moles/Vol] 142 mmol/L Normal 136-145 [facility] Comment on above: Performed By: #### L 501.2450, L501.5200, L500.3400, L500.2500, L100.0100, L700.6800 #### [facility] [address] [place], [address] Urea nitrogen [Mass/Vol] 10 mg/dL Normal 7-18 [facility] Comment on above: Performed By: #### L 501.2450, L501.5200, L500.3400, L500.2500, L100.0100, L700.6800 #### [facility] [address] [place], [address] CBC W/Diff, Automatedon 02-22 Absolute Lymph 3.41 X10 3/uL Normal 0.83-4.51 [facility] Comment on above: Performed By: #### L 501.2450, L501.5200, L500.3400, L500.2500, L100.0100, L700.6800 #### [facility] [address] [place], [address] Absolute Neut 6.1 X10 3/uL Normal 2.0-7.7 [facility] Comment on above: Performed By: #### L 501.2450, L501.5200, L500.3400, L500.2500, L100.0100, L700.6800 #### [facility] [address] [place], [address] Basophils/100 WBC (Bld) 0.7 % Normal 0-1 [facility] Comment on above: Performed By: #### L 501.2450, L501.5200, L500.3400, L500.2500, L100.0100, L700.6800 #### [facility] [address] [place], [address] Eosinophils/100 WBC (Bld) 3.6 % Normal 0-5 [facility] Comment on above: Performed By: #### L 501.2450, L501.5200, L500.3400, L500.2500, L100.0100, L700.6800 #### [facility] [address] [place], [address] Erythrocyte distribution width (RBC) [Ratio] 13.9 % Normal 11.6-14.6 [facility] Comment on above: Performed By: #### L 501.2450, L501.5200, L500.3400, L500.2500, L100.0100, L700.6800 #### [facility] [address] [place], [address] Hematocrit (Bld) [Volume fraction] 37.9 % Normal 37-47 [facility] Comment on above: Performed By: #### L 501.2450, L501.5200, L500.3400, L500.2500, L100.0100, L700.6800 #### [facility] [address] [place], [address] Hemoglobin (Bld) [Mass/Vol] 12.3 g/dL Normal 12.0-15.0 [facility] Comment on above: Performed By: #### L 501.2450, L501.5200, L500.3400, L500.2500, L100.0100, L700.6800 #### [facility] [address] [place], [address] IG% 0.300 Normal 0.0-0.9 [facility] Comment on above: Result Comment: IG% - Immature Granulocytes (promyelocytes, myelocytes and metamyelocytes) > 1% indicates that a LEFT SHIFT is Present. Performed By: #### L 501.2450, L501.5200, L500.3400, L500.2500, L100.0100, L700.6800 #### [facility] [address] [place], [address] Lymphocytes/100 WBC (Bld) 32.9 % Normal 19-41 [facility] Comment on above: Performed By: #### L 501.2450, L501.5200, L500.3400, L500.2500, L100.0100, L700.6800 #### [facility] [address] [place], [address] MCH (RBC) [Entitic mass] 27.1 pg Normal 27.0-32.0 [facility] Comment on above: Performed By: #### L 501.2450, L501.5200, L500.3400, L500.2500, L100.0100, L700.6800 #### [facility] [address] [place], [address] MCHC (RBC) [Mass/Vol] 32.5 g/dL Normal 32-36 [facility] Comment on above: Performed By: #### L 501.2450, L501.5200, L500.3400, L500.2500, L100.0100, L700.6800 #### [facility] [address] [place], [address] MCV (RBC) [Entitic vol] 83.5 fL Normal 81-99 [facility] Comment on above: Performed By: #### L 501.2450, L501.5200, L500.3400, L500.2500, L100.0100, L700.6800 #### [facility] [address] [place], [address] Monocytes/100 WBC (Bld) 3.7 % Normal 0-10 [facility] Comment on above: Performed By: #### L 501.2450, L501.5200, L500.3400, L500.2500, L100.0100, L700.6800 #### [facility] [address] [place], [address] Neutrophils/100 WBC (Bld) 58.8 % Normal 47-70 [facility] Comment on above: Performed By: #### L 501.2450, L501.5200, L500.3400, L500.2500, L100.0100, L700.6800 #### [facility] [address] [place], [address] Nucleated RBC (Bld) [#/Vol] 0 10*3/uL Normal 0-5 [facility] Comment on above: Performed By: #### L 501.2450, L501.5200, L500.3400, L500.2500, L100.0100, L700.6800 #### [facility] [address] [place], [address] Platelet mean volume (Bld) [Entitic vol] 8.8 fL Normal 6.2-12.0 [facility] Comment on above: Performed By: #### L 501.2450, L501.5200, L500.3400, L500.2500, L100.0100, L700.6800 #### [facility] [address] [place], [address] Platelets (Bld) [#/Vol] 350 10*3/uL Normal 150-450 [facility] Comment on above: Performed By: #### L 501.2450, L501.5200, L500.3400, L500.2500, L100.0100, L700.6800 #### [facility] [address] [place], [address] RBC (Bld) [#/Vol] 4.54 10*6/uL Normal 4.2-5.4 [facility] Comment on above: Performed By: #### L 501.2450, L501.5200, L500.3400, L500.2500, L100.0100, L700.6800 #### [facility] [address] [place], [address] RDW SD 42.2 fl Normal 35.1-43.9 [facility] Comment on above: Performed By: #### L 501.2450, L501.5200, L500.3400, L500.2500, L100.0100, L700.6800 #### [facility] [address] [place], [address] WBC (Bld) [#/Vol] 10.4 10*3/uL Normal 4.4-11.0 [facility] Comment on above: Performed By: #### L 501.2450, L501.5200, L500.3400, L500.2500, L100.0100, L700.6800 #### [facility] [address] [place], [address] Emergency Department Summary on 03-08-2024 Emergency Department Summary [facility] Medical Records Department [address] [place] [address] Emergency Department Summary 03/08/24 MR#: [id number] Acct: [id number] Name: ALINA MALIK Rep #: [id number] : 2005 19 From: Remy Sawyer DO PCP: JACQUELIN Flores, SENIOR IT SECURITY ANALYST-C Status:REG ER Location: ED HPI History of [...] her gallbladder removed approximately 2 years ago [facility] Medical History EP (ectopic ) Palpitations Wears [...] tympany Auscultat (more content not included)... Normal [facility] Lipaseon 03-08-2024 Lipase [Catalytic activity/Vol] 22 U/L Normal 13-75 [facility] Comment on above: Result Comment: Lorna lazar note: LIPASE revised reference range effective 22. New Lipase methodology. Expected to produce lower values than the previous assay method. NEW Reference Range: 13 - 75 U/L Performed By: #### L 501.2450, L501.5200, L500.3400, L500.2500, L100.0100, L700.6800 #### [facility] [address] [place], [address] Liver Profileon 03-08-2024 Albumin [Mass/Vol] 3.5 g/dL Normal 3.2-5.0 [facility] Comment on above: Performed By: #### L 501.2450, L501.5200, L500.3400, L500.2500, L100.0100, L700.6800 #### [facility] [address] [place], [address] ALK P 118 U/L High 45-117 [facility] Comment on above: Performed By: #### L 501.2450, L501.5200, L500.3400, L500.2500, L100.0100, L700.6800 #### [facility] [address] [place], [address] ALT [Catalytic activity/Vol] 17 U/L Normal 13-56 [facility] Comment on above: Performed By: #### L 501.2450, L501.5200, L500.3400, L500.2500, L100.0100, L700.6800 #### [facility] [address] [place], [address] AST [Catalytic activity/Vol] 19 U/L Normal 15-37 [facility] Comment on above: Performed By: #### L 501.2450, L501.5200, L500.3400, L500.2500, L100.0100, L700.6800 #### [facility] [address] [place], [address] Bilirubin [Mass/Vol] 0.70 mg/dL Normal 0.20-1.00 [facility] Comment on above: Result Comment: For patients on eltrombopag therapy, use of Dimension [place] TBIL is not recommended. Performed By: #### L 501.2450, L501.5200, L500.3400, L500.2500, L100.0100, L700.6800 #### [facility] [address] [place], [address] Bilirubin.direct [Mass/Vol] 0.18 mg/dL Normal 0.00-0.30 [facility] Comment on above: Performed By: #### L 501.2450, L501.5200, L500.3400, L500.2500, L100.0100, L700.6800 #### [facility] [address] [place], [address] Globulin (S) [Mass/Vol] 3.7 g/dL Normal 2.2-4.2 [facility] Comment on above: Performed By: #### L 501.2450, L501.5200, L500.3400, L500.2500, L100.0100, L700.6800 #### [facility] [address] [place], [address] T PROT 7.2 g/dL Normal 6.4-8.2 [facility] Comment on above: Performed By: #### L 501.2450, L501.5200, L500.3400, L500.2500, L100.0100, L700.6800 #### [facility] [address] [place], [address] Magnesiumon 03-08-2024 Magnesium [Mass/Vol] 2.0 mg/dL Normal 1.6-2.6 [facility] Comment on above: Performed By: #### L 501.2450, L501.5200, L500.3400, L500.2500, L100.0100, L700.6800 #### [facility] [address] [place], [address] ,Serum,hCG Quali.on 03-08-2024 HCG, SERUM QUAL Negative Normal [facility] Comment on above: Performed By: #### L 501.2450, L501.5200, L500.3400, L500.2500, L100.0100, L700.6800 #### [facility] [address] [place], [address] Echo Completeon 02-19-2024 Echo Complete [facility] [address] [place] [address] Echo Complete 02/19/24 1320 MR#: [id number] Acct: [id number] Name: ALINA MALIK Rep #: [id number] : 2005 19 From: Shan Brody MD Attending Dr: JACQUELIN Flores, SENIOR IT SECURITY ANALYST-C Status : REG CLI Ordering Dr: Nikki Olsen SENIOR IT SECURITY ANALYST-C Date: 02/18 Location: [facility] Sex: F C Admitted: Reason For Study: [...] Referring Physician: Nikki Olsen Performed By: Cici Ji RDCS, RVT 02/19/24 1429 Date Shan Brody MD CC: [facility] SENIOR IT SECURITY ANALYSTVick Olsen Date Dictated: 02/19/24 1320 Date Transcribed: 02/19/24 1429 Childcare Teacher: Signed Normal [facility] CBC W Auto Differential pane l (Bld)on [...] [#/Vol] 0.5 10*3/uL 0.0 - 0.9 10*3/uL [facility] Monocytes/100 WBC (Bld) 3.4 % Low 5.0 - 13.0 % [facility] Neutrophils (Bld) [#/Vol] 9.2 10*3/uL High 1.8 - 7.5 10*3/uL [facility] Neutrophils/100 WBC (Bld) 60.8 % 38.0 - 82.0 % [facility] Nucleated RBC/100 WBC (Bld) [Ratio] 0.0 % [facility] Platelet mean volume (Bld) [Entitic vol] 9.1 fL 9.0 - 12.7 fL [facility] Comment on above: MPV is a calculated measurement using platelet volume ratio Platelets (Bld) [#/Vol] 341 10*3/uL 140 - 440 10*3/uL [facility] RBC (Bld) [#/Vol] 4.77 10*6/uL 3.80 - 5.2 0 10*6/uL [facility] WBC (Bld) [#/Vol] 15.1 10*3/uL High 3.6 - 10.7 10*3/uL [facility] CBC WITH AUTO DIFFERENTIALon 02-18-2024 Basophils (Bld) [#/Vol] 0.1 10*3/uL Normal 0.0-0.2 [facility] Comment on above: Performed By: #### L [id number] #### Geek Squad Manager: GENEVIEVE SHEPHERD ([phone]) [facility] [employer] ([employer]) [address] [place] [address] Basophils/100 WBC (Bld) 0.5 % Normal 0.0-2.0 [facility] Comment on above: Performed By: #### L [id number] #### [employer] Manager: GENEVIEVE SHEPHERD ([phone]) [facility] [place] [employer] ([employer]) [address] [place] [address] [place] Eosinophils (Bld) [#/Vol] 0.4 10*3/uL Normal 0.0-0.5 [facility] Comment on above: Performed By: #### L [id number] #### [employer] Manager: GENEVIEVE SHEPHERD ([phone]) [facility] [place] [employer] ([employer]) [address] [place] [address] [place] Eosinophils/100 WBC (Bld) 2.8 % Normal 0.0-6.0 [facility] Comment on above: Performed By: #### L [id number] #### [employer] Manager: GENEVIEVE SHEPHERD ([phone]) [facility] [place] [employer] ([employer]) [address] [place] [address] Erythrocyte distribution width (RBC) [Ratio] 14.5 % Normal 11.5-15.0 [facility] Comment on above: Performed By: #### L [id number] #### [employer] Manager: GENEVIEVE SHEPHERD ([phone]) [facility] [place] ([employer]) [address] [place] [address] Hematocrit (Bld) [Volume fraction] 38.9 % Normal 35.0-47.0 [facility] Comment on above: Performed By: #### L [id number] #### [employer] Manager: GENEVIEVE SHEPHERD ([phone]) [facility] [place] ([employer]) [address] [place] [address] Hemoglobin (Bld) [Mass/Vol] 13.2 g/dL Normal 11.7-16.0 [facility] Comment on above: Performed By: #### L [id number] #### [employer] Manager: GENEVIEVE SHEPHERD ([phone]) [facility] [place] ([employer]) [address] [place] [address] IMMATURE GRANS % 0.4 % Normal 0.0-2.0 [facility] Comment on above: Performed By: #### L [id number] #### [employer]ek [employer] Manager: GENEVIEVE SHEPHERD ([phone]) [facility] [place] ([employer]) [address] [place] [address] IMMATURE GRANS ABSOLUTE 0.1 10*3/uL High <0.1 [facility] Comment on above: Performed By: #### L [id number] #### [employer] Manager: GENEVIEVE SHEPHERD ([phone]) [facility] [place] [employer] ([employer]) [address] [place] [address] Lymphocytes (Bld) [#/Vol] 4.9 10*3/uL High 1.0-4.3 [facility] Comment on above: Performed By: #### L [id number] #### [employer]ek [employer] Manager: GENEVIEVE SHEPHERD ([phone]) [facility] [place] ([employer]) [address] [place] [address] [place] Lymphocytes/100 WBC (Bld) 32.1 % Normal 15.0-45.0 [facility] Comment on above: Performed By: #### L [id number] #### [employer]ek [employer] Manager: GENEVIEVE SHEPHERD ([phone]) [facility] [place] ([employer]) [address] [place] [address] MCH (RBC) [Entitic mass] 27.7 pg Normal 26.0-34.0 [facility] Comment on above: Performed By: #### L [id number] #### Geek [employer] Manager: GENEVIEVE SHEPHERD ([phone]) [facility] [place] ([employer]) [address] [place] [address] MCHC 33.9 % Normal 30.5-36.0 [facility] Comment on above: Performed By: #### L [id number] #### Geek [employer] Manager: GENEVIEVE SHEPHERD ([phone]) [facility] [place] ([employer]) [address] [place] [address] MCV (RBC) [Entitic vol] 81.6 fL Normal 77.0-99.0 [facility] Comment on above: Performed By: #### L [id number] #### Geek [employer] Manager: GENEVIEVE SHEPHERD ([phone]) [facility] [place] ([employer]) [address] [place] [address] Monocytes (Bld) [#/Vol] 0.5 10*3/uL Normal 0.0-0.9 [facility] Comment on above: Performed By: #### L [id number] #### [employer]ek [employer] Manager: GENEVIEVE SHEPHERD ([phone]) [facility] [place] [employer] ([employer]) [address] [place] [address] [place] Monocytes/100 WBC (Bld) 3.4 % Low 5.0-13.0 [facility] Comment on above: Performed By: #### L [id number] #### [employer] Manager: GENEVIEVE SHEPHERD ([phone]) [facility] [place] ([employer]) [address] [place] [address] NEUTROPHILS ABSOLUTE 9.2 10*3/uL High 1.8-7.5 [facility] Comment on above: Performed By: #### L [id number] #### [employer]ek [employer] Manager: GENEVIEVE SHEPHERD ([phone]) [facility] [place] ([employer]) [address] [place] [address] Neutrophils/100 WBC (Bld) 60.8 % Normal 38.0-82.0 [facility] Comment on above: Performed By: #### L [id number] #### Geek [employer] Manager: GENEVIEVE SHEPHERD ([phone]) [facility] [place] ([employer]) [address] [place] [address] NRBC 0.0 /100 WBCs Normal 0.0-2.[address] [facility] Comment on above: Performed By: #### L [id number] #### Geek [employer] Manager: GENEVIEVE SHEPHERD ([phone]) [facility] [place] ([employer]) [address] [place] [address] Platelet mean volume (Bld) [Entitic vol] 9.1 fL Normal 9.0-12.7 [facility] Comment on above: Result Comment: MPV is a calculated measurement using platelet volume ratio Performed By: #### L [id number] #### [employer] Manager: GENEVIEVE SHEPHERD ([phone]) [facility] [employer] ([employer]) [address] [place] [address] [place] Platelets (Bld) [#/Vol] 341 10*3/uL Normal 140-440 [facility] Comment on above: Performed By: #### L [id number] #### [employer] Manager: GENEVIEVE SHEPHERD ([phone]) [facility] [place] ([employer]) [address] [place] [address] RBC (Bld) [#/Vol] 4.77 10*6/uL Normal 3.80-5.20 [facility] Comment on above: Performed By: #### L [id number] #### [employer]ek [employer] Manager: GENEVIEVE SHEPHERD ([phone]) [facility] [place] ([employer]) [address] [place] [address] WBC (Bld) [#/Vol] 15.1 10*3/uL High 3.6-10.7 [facility] Comment on above: Performed By: #### L [id number] #### [employer]ek [employer] Manager: GENEVIEVE SHEPHERD ([phone]) [facility] [place] ([employer]) [address] [place] [address] COMPLETE URINALYSISon 2023 BILIRUBIN, TOTAL PRESENCE IN URINE Negative Normal Negative [facility] Comment on above: Performed By: #### L [id number] #### [employer]ek [employer] Manager: GENEVIEVE SHEPHERD ([phone]) [facility] (SWRL[facility]) [address] [place] [address] Clarity (U) Clear Normal Clear [facility] Comment on above: Performed By: #### L [id number] #### Geek Squad Manager: GENEVIEVE SHEPHERD ([phone]) [facility] (SWRL[facility]) [address] [place] [address] Color (U) Light Yellow Normal Lt. Yellow [facility] Comment on above: Performed By: #### L [id number] #### Geek [employer] Manager: GENEVIEVE SHEPHERD ([phone]) [facility] (SWRL[facility]) [address] [place], [place] [address] GLUCOSE (MG/DL) IN URINE Normal Normal Normal (<70) [facility] Comment on above: Performed By: #### L [id number] #### Geek Squad Manager: GENEVIEVE SHEPHERD ([phone]) [facility] [address] [place] [address] HEMOGLOBIN PRESENCE IN URINE Negative Normal Negative [facility] Comment on above: Performed By: #### L [id number] #### Geek Squad Manager: GENEVIEVE SHEPHERD ([phone]) [facility] [address] [place] [address] [place] Ketones Ql (U) Negative Normal Negative [facility] Comment on above: Performed By: #### L AB347 #### Geek Squad Manager: GENEVIEVE SHEPHERD ([phone]) [facility] ([facility]) [address] [place] [address] LEUKOCYTE ESTERASE PRESENCE IN URINE BY TEST STRIP Negative Normal Negative [facility] Comment on above: Performed By: #### L [id number] #### Geek Squad Manager: GENEVIEVE SHEPHERD ([phone]) [facility] [address] [place] [address] NITRITE PRESENCE IN URINE Negative Normal Negative [facility] Comment on above: Performed By: #### L AB347 #### Geek Squad Manager: GENEVIEVE SHEPHERD ([phone]) [facility] [address] [place] [address] [place] pH (U) 7.0 [pH] Normal 5.0-8.0 [facility] Comment on above: Performed By: #### L AB347 #### Geek Squad Manager: GENEVIEVE SHEPHERD ([phone]) [facility] [address] [place] [address] [place] Protein (U) [Mass/Vol] Negative Normal Negative [facility] Comment on above: Performed By: #### L AB347 #### Geek Squad Manager: GENEVIEVE SHEPHERD ([phone]) [facility] [address] Specific gravity (U) [Rel density] 1.022 Normal 1.005-1.030 [facility] Comment on above: Performed By: #### L AB347 #### Geek Squad Manager: GENEVIEVE SHEPHERD ([phone]) [facility] ([facility]) [address] UROBILINOGEN (MG/DL) IN URINE 2 mg/dL Abnormal Normal (0-1) [facility] Comment on above: Performed By: #### L AB347 #### Geek Squad Manager: GENEVIEVE SHEPHERD ([phone]) [facility] [address] [place] [address] COMPREHENSIVE METABOLIC PANE Cristian 02-18-2024 Albumin [Mass/Vol] 4.4 g/dL Normal 3.5-5.0 [facility] Comment on above: Performed By: #### L AB17 #### Geek Squad Manager: GENEVIEVE SHEPHERD ([phone]) [facility] [address] ALP [Catalytic activity/Vol] 115 U/L Normal 38-126 [facility] Comment on above: Performed By: #### L AB17 #### Geek Squad Manager: GENEVIEVE SHEPHERD ([phone]) [facility] [address] ALT [Catalytic activity/Vol] 16 U/L Normal 0-34 [facility] Comment on above: Performed By: #### L AB17 #### Geek Squad Manager: GENEVIEVE SHEPHERD ([phone]) [facility] [address] Anion gap [Moles/Vol] 8 mmol/L Normal 3-13 [facility] Comment on above: Performed By: #### L AB17 #### Geek Squad Manager: GENEVIEVE SHEPHERD ([phone]) [facility] [address] [place] [address] [place] AST [Catalytic activity/Vol] 26 U/L Normal 15-46 [facility] Comment on above: Performed By: #### L AB17 #### Geek Squad Manager: GENEVIEVE SHEPHERD ([phone]) [facility] [address] [place] [address] [place] Bilirubin [Mass/Vol] 0.6 mg/dL Normal 0.2-1.3 [facility] Comment on above: Performed By: #### L AB17 #### Geek Squad Manager: GENEVIEVE SHEPHERD ([phone]) [facility] [address] [place] [address] Calcium [Mass/Vol] 9.3 mg/dL Normal 8.4-10.4 [facility] Comment on above: Performed By: #### L AB17 #### Geek Squad Manager: GENEVIEVE SHEPHERD ([phone]) [facility] [address] [place] [address] [place] Chloride [Moles/Vol] 105 mmol/L Normal 98-107 [facility] Comment on above: Performed By: #### L AB17 #### Geek Squad Manager: GENEVIEVE SHEPHERD ([phone]) [facility] [address] [place] [address] [place] CO2 [Moles/Vol] 23 mmol/L Normal 22-30 [facility] Comment on above: Performed By: #### L AB17 #### Geek Squad Manager: GENEVIEVE SHEPHERD ([phone]) [facility] [address] [place] [address] [place] Creatinine [Mass/Vol] 0.56 mg/dL Normal 0.52-1.04 [facility] Comment on above: Performed By: #### L AB17 #### Geek Squad Manager: GENEVIEVE SHEPHERD ([phone]) [facility] [address] [place] [address] GLOMERULAR FILTRATION RATE ML/MIN/1.73 SQ M.PREDICTED >90.0 Normal >60.0 [facility] Comment on above: Result Comment: Calc ulation based on the Chronic Kidney Disease Epidemiology Collaboration (CKD-EPI) equation refit without adjustment for race Performed By: #### L AB17 #### Geek Squad Manager: GENEVIEVE SHEPHERD ([phone]) [facility]) [address] [place] [address] Glucose [Mass/Vol] 116 mg/dL High 70-100 [facility] Comment on above: Performed By: #### L AB17 #### Geek Squad Manager: GENEVIEVE SHEPHERD ([phone]) [facility] [address] [place] [address] Potassium [Moles/Vol] 3.6 mmol/L Normal 3.5-5.1 [facility] Comment on above: Performed By: #### L AB17 #### Geek Squad Manager: GENEVIEVE SHEPHERD ([phone]) [facility] [address] [place] [address] [place] Protein [Mass/Vol] 7.6 g/dL Normal 6.3-8.2 [facility] Comment on above: Performed By: #### L AB17 #### Geek Squad Manager: GENEVIEVE SHEPHERD ([phone]) [facility] [address] [place] [address] [place] Sodium [Moles/Vol] 137 mmol/L Normal 135-145 [facility] Comment on above: Performed By: #### L AB17 #### Geek Squad Manager: GENEVIEVE SHEPHERD ([phone]) [facility] [address] [place] [address] [place] Urea nitrogen [Mass/Vol] 13 mg/dL Normal 7-17 [facility] Comment on above: Performed By: #### L AB17 #### Geek Squad Manager: GENEVIEVE SHEPHERD ([phone]) [facility] ([facility]) [address] [place] [address] CT ABDOMEN PELVIS W CONTRAST on 02-18-2024 [...] Electronically Signed Date/Time: 02/18/2024 10:[address] [facility] CT Abdomen and Pelvis W cont rast [place] 02-18-2024 1. Constipation. Report Dictated on Electronically Signed By: Andrew Ott MD Electronically Signed Date/Time: 02/18/2024 10:48 PM EDT [facility] Patient Name: ALINA AMLIK : 2005 Exam Date/Time: 02/18/2024 22:40 Procedure: [...] calculus seen on either side. Constipation noted. [facility] Andrew Ott MD - 02/18/2024 Patient Name: ALINA MALIK : 2005 [id number] Exam Date/Time: 02/18/2024 22:40 Procedure: CT ABDOMEN [...] Electronically Signed Date/Time: 02/18/2024 10:48 PM EDT [employer] Radiology Study observation (narrative) [employer] CT Abdomen and Pelvis W cont rast IVOrdered By: Andrew Ott on 02-18-2024 [employer] Work Phone: Comprehensive metabolic 1998 panelon 02-18-2024 Albumin [Mass/Vol] 4.4 g/dL 3.5 - 5.0 g/dL [facility] ALP [Catalytic activity/Vol] 115 U/L 38 - 126 U/L [facility] ALT [Catalytic activity/Vol] 16 U/L 0 - 34 U/L [facility] Anion gap [Moles/Vol] 8 mmol/L 3 - 13 mmol/L [facility] AST [Catalytic activity/Vol] 26 U/L 15 - 46 U/L [facility] Bilirubin [Mass/Vol] 0.6 mg/dL 0.2 - 1 .3 mg/dL [facility] Calcium [Mass/Vol] 9.3 mg/dL 8.4 - 10. 4 mg/dL [facility] Chloride [Moles/Vol] 105 mmol/L 98 - 10 7 mmol/L [facility] CO2 [Moles/Vol] 23 mmol/L 22 - 30 mmol/L [facility] Creatinine [Mass/Vol] 0.56 mg/dL 0.52 - 1.04 mg/dL [facility] GFR/1.73 sq M.predicted (S/P/Bld) [Vol rate/Area] - PINF [facility] Comment on above: Calculation based on the Chronic Kidney Disease Epidemiology Collaboration (CKD-EPI) equation refit without adjustment for race Glucose [Mass/Vol] 116 mg/dL High 70 - 100 mg/dL [facility] Interpretation and review of laboratory results Abnormal [facility] Potassium [Moles/Vol] 3.6 mmol/L 3.5 - 5.1 mmol/L [facility] Protein [Mass/Vol] 7.6 g/dL 6.3 - 8.2 g/dL [facility] Sodium [Moles/Vol] 137 mmol/L 135 - 145 mmol/L [facility] Urea nitrogen [Mass/Vol] 13 mg/dL 7 - 17 mg/dL [facility] ED Nursing Noteon 02-18-2024 ED Nursing Note Pt given discharge instructions and verbalized understanding. Pt is alert and oriented X4. IV removed intact. Pt is ambulatory to the [facility]. No concerns at this time. Candelaria Gerard RN 02/18/[address] [facility] ED Nursing Note Dr. Joiner at pt bedside. Candelaria Gerard RN 02/18/[address] [facility] ED Provider Noteon ED Provider Note EMERGENCY DEPARTMENT ENCOUNTER Pt Name: Alina Malik Birthdate 2005 Date of evaluation: 02/18/2024 ED Provider: Rigo Joiner MD CHIEF COMPLAINT Chief Complaint Patient presents with Abdominal Pain Pt states she was seen yesterday for same at [facility] and was told she had a [...] Single Social Determinants of Health Received from [employer] Received from [employer] Received from [employer]personal Safety Received from [employer] SCREENINGS PHYSICAL EXAM ED Triage Vitals [...] Urine Negativ (more content not included)... Normal [facility] HCG QUALITATIVE URINEon 01-23 Beta HCG ( test) Ql (U) Negative Normal Negative [facility] Comment on above: Result Comment: Lorna lazar note: Very dilute urine specimens, as indicated by a low specific gravity, may not contain support representative levels of hCG. If is still suspected, a first morning urine specimen should be collected 48 hours later and tested. ORDER COMMENTS: is the most common reason for HCG in urine, although choriocarcinoma, hydatidiform mole, and certain nontrophoblastic malignancies also result in detectable urinary HCG levels. Sensitivity = 20mIU/mL. Performed By: #### L [id number] #### Geek Squad Manager: GENEVIEVE SHEPHERD ([phone]) [facility] [address] [place] [address] Laboratory - Chemistry and C hemistry - challengeOrdered By: Brandy Jerome on 02-18-2024 Beta HCG ( test) Ql Negative Negative [facility] Comment on above: Please note: Very di lute urine specimens, as indicated by a low specific gravity, may not contain support representative levels of hCG. If is still suspected, a first morning urine specimen should be collected 48 hours later and tested. Beta HCG ( test) Ql (U) is the most common reason for HCG in urine, although choriocarcinoma, hydatidiform mole, and certain nontrophoblastic malignancies also result in detectable urinary HCG levels. Sensitivity = 20mIU/mL. [facility] [employer] No Panel InformationOrdered By: Brandy Jerome on 02-18-2024 [facility] Urinalysis complete panel (U )on 02-18-2024 Bilirubin Ql (U) Negative Negative mg/dL [facility] [employer] Clarity (U) Clear Clear [facility] Color (U) Light Yellow Lt. Yellow [facility] [employer] Glucose Ql (U) Normal Normal (<70) mg/dL [facility] Hemoglobin Ql (U) Negative Negative mg/dL [facility] Interpretation and review of laboratory results Abnormal [facility] Ketones (U) [Mass/Vol] Negative Negative mg/dL [facility] Leukocyte esterase Test strip Ql (U) Negative Negative Giuliana/uL [facility] Nitrite Ql (U) Negative Negative [facility] Heal th pH (U) 7.0 [pH] 5.0 - 8.0 pH [facility] Protein (U) [Mass/Vol] Negative Negative mg/dL [facility] Specific gravity (U) [Rel density] 1.022 1.005 - 1.030 [facility] Urobilinogen (U) [Mass/Vol] 2 mg/dL Abnormal Normal (0-1) [facility] Bacteria Ur Culton 4 Bacteria identified Cx Nom (U) ORGANISM ID: 1 <10,000 CFU/ml Mixed microbiota No further workup. Mixed microbiota can be due to???urine???contaminat ion with skin bacteria at time of collection or presence of a long-term urinary catheter. If a new culture is needed, please consider re-education of the patient on proper midstream collection technique or straight catheterization for???urine???collectio n. Normal [facility] Comment on above: Performed By: #### 6 30-4 #### [facility] CLIA [id number] [address] [place] [address] [facility] CNOVon 02-17-2024 CNOV Office Visit (UCWSTR ) ALINA MALKI ([id number]) 1 F Date Time Provider Department 02/17/24 7:30 AM SKINNY MOORE [facility] During your visit today, we recorded the following information about you: Temperature Pulse Respiration Blood pressure 98.6 degrees 104/minute 16/minute 128/82 Weight 130.3 kg Skinny Moore APRN.CNP 02/17/2024 9:03 AM Signed Subjective HPI HPI Alina Brownine King is a 19 year old female who [...] treat per c/s, f/u with pcp or rooter operator if negative. - Patient education for prevention given - UA DIP, URINE (POC) - URINE CULTURE Skinny Moore APRN.ELECTRICIAN JOURNEYMAN WIREMAN Allergies As of Date: 02/17/2024 Noted Allergy Reaction WELLBUTRIN (BUPROPION) 06/14/2022 2 - Rash Date Reviewed: 02/17/2024 Reviewed by: Sue Ryder MA - Fully Assessed Reason for Visit: Urinary Frequency [1086] Cmt: urgency x couple weeks Primary Visit Diagnosis:Urinary frequency [R35.0] Order(s):UA DIP, URINE (POC) [1091798] Order #: [id number]. #:[id number] URINE CULTURE [SQURCUL] Order #: [id number]. #:[id number] Prescriptions as of 02/17/2024 - topiramate (TOPAMAX) [...] Status:Closed by SKINNY MOORE on 02/17/24 Normal [facility] LABORATORYOrdered By: Chantale Malik on 08-26-2024 Appearance (U) Clear (02/17/24 9:23 AM) Normal [...] HCG ( test) Ql (U) Negative Normal [facility] ([place]) Comment on above: Performed By: #### U A, PREGU #### [address] [address] test (u) int Not detected Invalid Interpretation Code [facility] ([place] Comment on above: Performed By: #### U A, PREGU #### [address] [address] UAon 02-17-2024 Color (U) Yellow Normal [facility] ([place] Comment on above: Performed By: #### U A, PREGU #### [address] [address] Glucose (U) [Mass/Vol] Negative Normal Negative [facility] ([place] Comment on above: Performed By: #### U A, PREGU #### [address] [address] Ketones Ql (U) Negative Normal Negative [facility] ([place] Comment on above: Performed By: #### U A, PREGU #### [place] [address] UA Appear Clear Normal Clear [facility] ([place] Comment on above: Performed By: #### U A, PREGU #### [place] [address] UA Blood Trace Abnormal Negative [facility] ([place] Comment on above: Performed By: #### U A, PREGU #### [address] [address] UA Leuk Est Negative Normal Negative [facility] ([place] Comment on above: Performed By: #### U A, PREGU #### [address] [address] UA Nitrite Negative Normal Negative [facility] ([place] Comment on above: Performed By: #### U A, PREGU #### [address] [address] UA pH 7.0 Normal 5.0 - 8.0 [facility] ([place] Comment on above: Performed By: #### U A, PREGU #### [place] [address] UA Protein Negative Normal Negative [facility] ([place] Comment on above: Performed By: #### U A, PREGU #### [place] [address] UA Spec Grav 1.010 Abnormal 1.015-1.025 [facility] ([place]) Comment on above: Performed By: #### U A, PREGU #### [place] [address] UA Specimen Type Void Normal [facility] ([place]) Comment on above: Performed By: #### U A, PREGU #### [facility] [address] [place], [place] [address] UA Urobilinogen 0.2 E.U./dL Normal 0.2-1.0 [facility] ([place]) Comment on above: Performed By: #### U A, PREGU #### [facility] [address] [place], [place] [address] Urobilinogen (U) [Mass/Vol] Negative Normal Negative [facility] ([place] Comment on above: Performed By: #### U A, PREGU #### [facility] [address] [place], [place] [address] UA DIP, URINE (POC)on 2023 BILIRUBIN UA (POCT) Negative Negative [facility] CLARITY UA (POCT) Cloudy [facility] COLOR UA (POCT) Yellow [facility] GLUCOSE UA (POCT) Negative Negative mg/dL [facility] Hemoglobin Ql (U) Negative Negative [facility] KETONE UA (POCT) Negative Negative mg/dL [facility] LEUKOCYTES UA (POCT) Negative Negative [facility] NITRITE UA (POCT) Negative Negative [facility] PH UA (POCT) 6.0 4.5 - 8.0 [facility] Protein Ql (U) Negative Negative mg/dL [facility] SPECIFIC GRAVITY UA (POCT) 1.020 1.005 - 1.030 [facility] UROBILINOGEN UA (POCT) 1.0 Normal E.U./dL [facility] Location:[facility], [address] [place], [address] [facility] POINT OF CARE [facility] 12 Lead EKGon 01-23-2024 12 Lead EKG [facility] Cardiovascular Services [address] [place] [address] 12 Lead EKG 01/23/24 0812 MR#: [id number] Acct: [id number] Name: ALINA MALIK Rep #: [id number] : 2005 19 From: Corina Clay MD Attending Dr: Nikki Olsen, JACQUELIN, SENIOR IT SECURITY ANALYST-C Status : REG CLI Ordering Dr: Nikki Olsen SENIOR IT SECURITY ANALYST-C Date: 01/22 Location: [facility] Sex: F C Admitted: Test Reason : FAST HR Blood Pressure : / mmHG Vent. Rate : 085 BPM Atrial Rate : 085 BPM P-R Int : 158 ms QRS Dur : 090 ms QT Int : 372 ms P-R-T Axes : 042 054 049 degrees QTc Int : 442 ms Normal sinus rhythm Normal ECG Confirmed by LOPEZ MACHADO, KATHY ([id number]), content editor MERLIN FAYE ([id number]) on 01/24/2024 10:26:39 AM Referred By: Nikki Olsen Confirmed By:JEFFREY CLAY MD 01/24/24 1026 Date Corina Clay MD CC: [facility] SENIOR IT SECURITY ANALYST-C Nikki Olsen Signed Normal [facility] 12 Lead EKGon 12-30-2023 12 Lead EKG [facility] Cardiovascular Services [address] [place] [address] 12 Lead EKG 12/30/23 0610 MR#: [id number] Acct: [id number] Name: ALINA MALIK Rep #: [id number] : 2005 18 From: Rigo Ulloa MD Attending Dr: Status: DEP Ordering Dr: Remy Sawyer DO Date: 12/30/23 [...] normal ECG Confirmed by Rigo Ulloa ([id number]), content editor JESSICA SCOTT ([id number]) on 12/31/2023 12:51:05 PM Referred By: MOHINDER Confirmed By:Rigo Ulloa 12/31/23 1251 Date Rigo Ulloa MD CC: [facility] SENIOR IT SECURITY ANALYST-C Nikki Olsen; Remy Sawyer DO Signed Normal [facility] Basic Metabolic Profile (BMP )on 12-30-2023 BUN/CRE 10.4 RATIO Normal 10-20 [facility] Comment on above: Performed By: #### L 501.5200, L700.6800, L500.2500, L100.0100, L501.9520 #### [facility] [address] [place], [address] CA,Total 9.1 mg/dL Normal 8.5-10.1 [facility] Comment on above: Performed By: #### L 501.5200, L700.6800, L500.2500, L100.0100, L501.9520 #### [facility] [address] [place], [address] Chloride [Moles/Vol] 108 mmol/L High 98-107 [facility] Comment on above: Performed By: #### L 501.5200, L700.6800, L500.2500, L100.0100, L501.9520 #### [facility] [address] [place], [address] CO2 [Moles/Vol] 26.0 mmol/L Normal 21.0-32.0 [facility] Comment on above: Performed By: #### L 501.5200, L700.6800, L500.2500, L100.0100, L501.9520 #### [facility] [address] [place], [address] Creatinine [Mass/Vol] 0.87 mg/dL Normal 0.55-1.02 [facility] Comment on above: Result Comment: The validity of the calculated GFR GFRAA in patients over 70 years has not been determined. Clinical correlation is essential. Performed By: #### L 501.5200, L700.6800, L500.2500, L100.0100, L501.9520 #### [facility] [address] [place], [address] ECRCL 135.74 ml/min Normal [facility] Comment on above: Performed By: #### L 501.5200, L700.6800, L500.2500, L100.0100, L501.9520 #### [facility] [address] [place], [address] EST GFR - AA 106 mL/min Normal >60 [facility] Comment on above: Result Comment: Afri can Niuean GFR Calc Performed By: #### L 501.5200, L700.6800, L500.2500, L100.0100, L501.9520 #### [facility] [address] [place], [address] GAP 6 Normal 5-15 [facility] Comment on above: Performed By: #### L 501.5200, L700.6800, L500.2500, L100.0100, L501.9520 #### [facility] [address] [place], [address] GFR/1.73 sq M.predicted among non-blacks MDRD (S/P/Bld) [Vol rate/Area] 88 mL/min/{1.73_m2} Normal >60 [facility] Comment on above: Result Comment: Non- GFR Calc Performed By: #### L 501.5200, L700.6800, L500.2500, L100.0100, L501.9520 #### [facility] [address] [place], [address] Glucose [Mass/Vol] 108 mg/dL High 74-106 [facility] Comment on above: Result Comment: Fast ing Glucose result from 100 to 125 mg/dL suggests IMPAIRED HOMEOSTASIS per A.D.A. criteria. Performed By: #### L 501.5200, L700.6800, L500.2500, L100.0100, L501.9520 #### [facility] [address] [place], [address] Potassium [Moles/Vol] 3.2 mmol/L Low 3.5-5.1 [facility] Comment on above: Performed By: #### L 501.5200, L700.6800, L500.2500, L100.0100, L501.9520 #### [facility] [address] [place], [address] Sodium [Moles/Vol] 140 mmol/L Normal 136-145 [facility] Comment on above: Performed By: #### L 501.5200, L700.6800, L500.2500, L100.0100, L501.9520 #### [facility] [address] [place], [address] Urea nitrogen [Mass/Vol] 9 mg/dL Normal 7-18 [facility] Comment on above: Performed By: #### L 501.5200, L700.6800, L500.2500, L100.0100, L501.9520 #### [facility] [address] [place], [address] CBC W/Diff, Automatedon 07-0 8-2023 Absolute Lymph 3.92 X10 3/uL Normal 0.83-4.51 [facility] Comment on above: Performed By: #### L 501.5200, L700.6800, L500.2500, L100.0100, L501.9520 #### [facility] [address] [place], [address] Absolute Neut 6.0 X10 3/uL Normal 2.0-7.7 [facility] Comment on above: Performed By: #### L 501.5200, L700.6800, L500.2500, L100.0100, L501.9520 #### [facility] [address] [place], [address] Basophils/100 WBC (Bld) 0.6 % Normal 0-1 [facility] Comment on above: Performed By: #### L 501.5200, L700.6800, L500.2500, L100.0100, L501.9520 #### [facility] [address] [place], [address] Eosinophils/100 WBC (Bld) 4.1 % Normal 0-5 [facility] Comment on above: Performed By: #### L 501.5200, L700.6800, L500.2500, L100.0100, L501.9520 #### [facility] [address] [place], [address] Erythrocyte distribution width (RBC) [Ratio] 14.2 % Normal 11.6-14.6 [facility] Comment on above: Performed By: #### L 501.5200, L700.6800, L500.2500, L100.0100, L501.9520 #### [facility] [address] [place], [address] Hematocrit (Bld) [Volume fraction] 38.6 % Normal 37-47 [facility] Comment on above: Performed By: #### L 501.5200, L700.6800, L500.2500, L100.0100, L501.9520 #### [facility] [address] [place], [address] Hemoglobin (Bld) [Mass/Vol] 12.9 g/dL Normal 12.0-15.0 [facility] Comment on above: Performed By: #### L 501.5200, L700.6800, L500.2500, L100.0100, L501.9520 #### [facility] [address] [place], [address] IG% 0.300 Normal 0.0-0.9 [facility] Comment on above: Result Comment: IG% - Immature Granulocytes (promyelocytes, myelocytes and metamyelocytes) > 1% indicates that a LEFT SHIFT is Present. Performed By: #### L 501.5200, L700.6800, L500.2500, L100.0100, L501.9520 #### [facility] [address] [place], [address] Lymphocytes/100 WBC (Bld) 36.1 % Normal 19-41 [facility] Comment on above: Performed By: #### L 501.5200, L700.6800, L500.2500, L100.0100, L501.9520 #### [facility] [address] [place], [address] MCH (RBC) [Entitic mass] 27.5 pg Normal 27.0-32.0 [facility] Comment on above: Performed By: #### L 501.5200, L700.6800, L500.2500, L100.0100, L501.9520 #### [facility] [address] [place], [address] MCHC (RBC) [Mass/Vol] 33.4 g/dL Normal 32-36 [facility] Comment on above: Performed By: #### L 501.5200, L700.6800, L500.2500, L100.0100, L501.9520 #### [facility] [address] [place], [address] MCV (RBC) [Entitic vol] 82.3 fL Normal 81-99 [facility] Comment on above: Performed By: #### L 501.5200, L700.6800, L500.2500, L100.0100, L501.9520 #### [facility] [address] [place], [address] Monocytes/100 WBC (Bld) 3.9 % Normal 0-10 [facility] Comment on above: Performed By: #### L 501.5200, L700.6800, L500.2500, L100.0100, L501.9520 #### [facility] [address] [place], [address] Neutrophils/100 WBC (Bld) 55.0 % Normal 47-70 [facility] Comment on above: Performed By: #### L 501.5200, L700.6800, L500.2500, L100.0100, L501.9520 #### [facility] [address] [place], [address] Nucleated RBC (Bld) [#/Vol] 0 10*3/uL Normal 0-5 [facility] Comment on above: Performed By: #### L 501.5200, L700.6800, L500.2500, L100.0100, L501.9520 #### [facility] [address] [place], [address] Platelet mean volume (Bld) [Entitic vol] 8.9 fL Normal 6.2-12.0 [facility] Comment on above: Performed By: #### L 501.5200, L700.6800, L500.2500, L100.0100, L501.9520 #### [facility] [address] [place], [address] Platelets (Bld) [#/Vol] 385 10*3/uL Normal 150-450 [facility] Comment on above: Performed By: #### L 501.5200, L700.6800, L500.2500, L100.0100, L501.9520 #### [facility] [address] [place], [address] RBC (Bld) [#/Vol] 4.69 10*6/uL Normal 4.2-5.4 [facility] Comment on above: Performed By: #### L 501.5200, L700.6800, L500.2500, L100.0100, L501.9520 #### [facility] [address] [place], [address] RDW SD 41.4 fl Normal 35.1-43.9 [facility] Comment on above: Performed By: #### L 501.5200, L700.6800, L500.2500, L100.0100, L501.9520 #### [facility] [address] [place], [address] WBC (Bld) [#/Vol] 10.9 10*3/uL Normal 4.4-11.0 [facility] Comment on above: Performed By: #### L 501.5200, L700.6800, L500.2500, L100.0100, L501.9520 #### [facility] [address] [place], [address] CTA Chest W/WO Contraston CTA Chest W/WO Contrast [facility] Imaging Services [address] [place] [address] CTA Chest W/WO Contrast MR#: [id number] Acct: [id number] Name: ALINA MALIK Rep #: [id number] : 2005 F 18 From: Demetris tian MD PCP: Nikki Olsen [facility], SENIOR IT SECURITY ANALYST-C Status: [facility] ER Study: CTA Chest W/WO Contrast Date of Exam: 12/30/23 Exam# [id number] Ordering [place]: [place] [id number] STUDY: CTA CHEST REASON FOR EXAM: Female, [...] Signed: Demetris Riojas MD at 8:47 EDT , CC: [facility] JACKELIN Olsen; Dr. Erik Leal MD Childcare Teacher: Signed Normal [facility] D-Dimer Quantitative (DVT/PE )on 12-30-2023 D-DIMER QUANT 0.68 FEU/ug/m Invalid Interpretation Code 0.27-0.49 [facility] Comment on above: Result Comment: D-Di emani ELEVATED (>0.49): Additional studies and clinical assessments are indicated to conclude diagnosis of: Deep Vein Thrombosis (DVT) or Pulmonary Embolism (PE) CRITICAL VALUE VERIFIED. CALLED TO BRIAN RAO (ER) 12/30/23 0731 Aston Sim. RESULTS READ BACK BY SAME. Performed By: #### L 501.2450, L501.5200, L500.3400, L500.2500, L100.0100, L700.6800 #### [facility] [address] [place], [address] Emergency Department Summary on 12-30-2023 Emergency Department Summary [facility] Medical Records Department [address] [place] [address] Emergency Department Summary 12/30/23 MR#: [id number] Acct: [id number] Name: ALINA MALIK Rep #: [id number] : 2005 18 From: Remy Sawyer DO PCP: JACQUELIN Flores, SENIOR IT SECURITY ANALYST-C Status:REG ER Location: ED ADDENDUM by Dr. [...] 0857 Cosigner Signature (if applicable): cc: JACQUELIN SENIOR IT SECURITY ANALYST-C Nikki Olsen * Signed HPI History of [...] She also denies any illicit drug use. [facility] Medical History EP (ectopic ) Palpitations Wears [...] are equal (more content not included)... Normal [facility] Magnesiumon 12-30-2023 Magnesium [Mass/Vol] 2.1 mg/dL Normal 1.6-2.6 [facility] Comment on above: Performed By: #### L 501.5200, L700.6800, L500.2500, L100.0100, L501.9520 #### [facility] [address] [facility] [place], [place], [id number] ,Serum,hCG Quali.on 12-30-2023 HCG, SERUM QUAL Negative Normal [facility] Comment on above: Performed By: #### L 501.5200, L700.6800, L500.2500, L100.0100, L501.9520 #### [facility] [address] [place], [place], [address] Thyroid Stim Hormone (TSH)on 12-30-2023 TSH 2.48 uIU/mL Normal 0.358-3.74 [facility] Comment on above: Performed By: #### L 501.2450, L501.5200, L500.3400, L500.2500, L100.0100, L700.6800 #### [facility] [address] [place], [place], [address] Basic metabolic 2000 panelon 08-31-2023 Anion gap [Moles/Vol] 13 mmol/L Normal 9-18 [facility] Comment on above: Order Comment: Speci men Type: BLOOD SPECIMEN Ordering Facility: [facility] Address: [address] [place] [address] Performed By: #### 2 4321-2 #### [facility] [place] [facility] CLIA [id number] [address] [place] [address] [place] Calcium [Mass/Vol] 9.2 mg/dL Normal 8.5-10.2 [facility] Comment on above: Order Comment: Speci men Type: BLOOD SPECIMEN Ordering Facility: [facility] Address: [address] [place] [address] Performed By: #### 2 4321-2 #### [facility] [place] [facility] CLIA [id number] [address] [place] [address] [place] Chloride [Moles/Vol] 105 mmol/L Normal 97-105 [facility] Comment on above: Order Comment: Speci men Type: BLOOD SPECIMEN Ordering Facility: [facility] Address: [address] [place] [address] Performed By: #### 2 4321-2 #### [facility] [place] [facility] CLIA [id number] [address] [place] [address] [place] CO2 [Moles/Vol] 23 mmol/L Normal 22-30 [facility] Comment on above: Order Comment: Speci men Type: BLOOD SPECIMEN Ordering Facility: [facility] Address: [address] [place] [address] Performed By: #### 2 4321-2 #### [facility] [place] [facility] CLIA [id number] [address] [place] [address] [place] Creatinine [Mass/Vol] 0.70 mg/dL Normal 0.58-0.96 [facility] Comment on above: Order Comment: Speci men Type: BLOOD SPECIMEN Ordering Facility: [facility] Address: [address] [place] [address] Performed By: #### 2 4321-2 #### [facility] [place] [facility] CLIA [id number] [address] [place] Creatinine and Glomerular filtration rate.predicted panel (S/P/Bld) 127 mL/min/1.73m??? Normal >=60 [facility] Comment on above: Order Comment: Speci men Type: BLOOD SPECIMEN Ordering Facility: [facility] Address: [address] [place] [address] Result Comment: Jayla mated Glomerular Filtration Rate [...] GFR. Performed By: #### 2 4321-2 #### [facility] [place] [facility] CLIA [id number] [address] [place] [address] [place] Glucose [Mass/Vol] 114 mg/dL High 74-99 [facility] Comment on above: Order Comment: Oh sullivan Type: BLOOD SPECIMEN Ordering Facility: [facility] Address: [address] [place] [address] Result Comment: The [place] Diabetes Association (ADA) provides guidance for cutoff [...] Standards of Medical Care in Diabetes 2016, [place] [employer]. Diabetes Care. 2016.39(Suppl 1). Performed By: #### 2 4321-2 #### [facility] [place] [facility] CLIA [id number] [address] [place] [address] [place] Potassium [Moles/Vol] 3.5 mmol/L Low 3.7-5.1 [facility] Comment on above: Order Comment: Oh sullivan Type: BLOOD SPECIMEN Ordering Facility: [facility] Address: [address] [place] [id number] Performed By: #### 2 4321-2 #### [facility] [place] [facility] CLIA [id number] [address] [place] [address] [place] Sodium [Moles/Vol] 141 mmol/L Normal 136-144 [facility] Comment on above: Order Comment: Speci men Type: BLOOD SPECIMEN Ordering Facility: [facility] Address: [facility] [place] [address] Performed By: #### 2 4321-2 #### [facility] [place] [facility] CLIA [id number] [address] [place] [address] [place] [facility] Urea nitrogen [Mass/Vol] 11 mg/dL Normal 7-21 [facility] Comment on above: Order Comment: Speci men Type: BLOOD SPECIMEN Ordering Facility: [facility] Address: [address] [place] [address] Performed By: #### 2 4321-2 #### [facility] [place] [facility] CLIA [id number] [address] [place] [address] [place] CBC W Auto Differential pane l (Bld)on 08-31-2023 Basophils (Bld) [#/Vol] 10*3/uL Normal <0.11 [facility] Comment on above: Order Comment: Speci men Type: BLOOD SPECIMENOrdering Facility: [facility] Address: [address] [place] [address] Performed By: #### 5 7021-8 ####[facility] [place] [facility] [id number] [address] Basophils/100 WBC (Bld) 0.1 % Normal [facility] Comment on above: Order Comment: Speci men Type: BLOOD SPECIMENOrdering Facility: [facility] Address: [address] [place] [address] Performed By: #### 5 7021-8 ####[facility] [place] [facility] [id number] [address] Differential cell count method Nom (Bld) Auto Normal [facility] Comment on above: Order Comment: Speci men Type: BLOOD SPECIMENOrdering Facility: [facility] Address: [address] [place] [address] Performed By: #### 5 7021-8 ####[facility] [place] [facility] [id number] [place] [address] [place] Eosinophils (Bld) [#/Vol] 0.03 10*3/uL Normal <0.46 [facility] Comment on above: Order Comment: Speci men Type: BLOOD SPECIMENOrdering Facility: [facility] Address: [address] [place] [address] Performed By: #### 5 7021-8 ####[facility] [place] [facility] [id number] [place] [address] [place] Eosinophils/100 WBC (Bld) 0.2 % Normal [facility] Comment on above: Order Comment: Speci men Type: BLOOD SPECIMENOrdering Facility: [facility] Address: [address] [place] [address] Performed By: #### 5 7021-8 ####[facility] [place] [facility] [id number] [facility] [place] [address] [place] Erythrocyte distribution width (RBC) [Ratio] 14.2 % Normal 11.5-15.0 [facility] Comment on above: Order Comment: Speci men Type: BLOOD SPECIMENOrdering Facility: [facility] Address: [address] [place] [address] Performed By: #### 5 7021-8 ####[facility] [place] [facility] [id number] [facility] [place] [address] [place] Hematocrit (Bld) [Volume fraction] 38.3 % Normal 36.0-46.0 [facility] Comment on above: Order Comment: Speci men Type: BLOOD SPECIMENOrdering Facility: [facility] Address: [address] [place] [address] Performed By: #### 5 7021-8 ####[facility] [place] [facility] [id number] [place] [address] [place] Hemoglobin (Bld) [Mass/Vol] 12.7 g/dL Normal 11.5-15.5 [facility] Comment on above: Order Comment: Speci men Type: BLOOD SPECIMENOrdering Facility: [facility] Address: [address] [place] [address] Performed By: #### 5 7021-8 ####[facility] [place] [facility] [id number] [facility] [place] [address] [facility] Immature granulocytes (Bld) [#/Vol] 0.06 10*3/uL Normal <0.10 [facility] Comment on above: Order Comment: Speci men Type: BLOOD SPECIMENOrdering Facility: [facility] Address: [address] [place] [address] Performed By: #### 5 7021-8 ####[facility] [place] [facility] [id number] [facility] [place] [address] [facility] Immature granulocytes/100 WBC (Bld) 0.3 % Normal [facility] Comment on above: Order Comment: Speci men Type: BLOOD SPECIMENOrdering Facility: [facility] Address: [address] [place] [address] Performed By: #### 5 7021-8 ####[facility] [place] [facility] [id number] [facility] [place] [address] [facility] Lymphocytes (Bld) [#/Vol] 4.28 10*3/uL High 1.00-4.00 [facility] Comment on above: Order Comment: Speci men Type: BLOOD SPECIMENOrdering Facility: [facility] Address: [address] [place] [address] Performed By: #### 5 7021-8 ####[facility] [place] [facility] [id number] [facility] [place] [address] [facility] Lymphocytes/100 WBC (Bld) 22.8 % Normal [facility] Comment on above: Order Comment: Speci men Type: BLOOD SPECIMENOrdering Facility: [facility] Address: [address] [place] [address] Performed By: #### 5 7021-8 ####[facility] [place] [facility] [id number] [facility] [place] [address] [facility] MCH (RBC) [Entitic mass] 27.6 pg Normal 26.0-34.0 [facility] Comment on above: Order Comment: Speci men Type: BLOOD SPECIMENOrdering Facility: [facility] Address: [address] [place] [address] Performed By: #### 5 7021-8 ####[facility] [place] LABCLIA [id number] [place] [address] [facility] MCHC (RBC) [Mass/Vol] 33.2 g/dL Normal 30.5-36.0 [facility] Comment on above: Order Comment: Speci men Type: BLOOD SPECIMENOrdering Facility: [facility] Address: [address] [place] [address] Performed By: #### 5 7021-8 ####[facility] [id number] [address] MCV (RBC) [Entitic vol] 83.3 fL Normal 80.0-100.0 [facility] Comment on above: Order Comment: Speci men Type: BLOOD SPECIMENOrdering Facility: [facility] Address: [address] [place] [address] Performed By: #### 5 7021-8 ####[facility] [id number] [address] Monocytes (Bld) [#/Vol] 0.58 10*3/uL Normal <0.87 [facility] Comment on above: Order Comment: Speci men Type: BLOOD SPECIMENOrdering Facility: [facility] Address: [address] [place] [address] Performed By: #### 5 7021-8 ####[facility] [place] [facility]CLIA [id number] [address] Monocytes/100 WBC (Bld) 3.1 % Normal [facility] Comment on above: Order Comment: Speci men Type: BLOOD SPECIMENOrdering Facility: [facility] Address: [address] [place] [address] Performed By: #### 5 7021-8 ####[facility] [place] LABCLIA [id number] [place] [address] [place] Neutrophils (Bld) [#/Vol] 13.83 10*3/uL High 1.45-7.50 [facility] Comment on above: Order Comment: Speci men Type: BLOOD SPECIMENOrdering Facility: [facility] Address: [address] [place] [address] Performed By: #### 5 7021-8 ####[facility] [place] [facility]IA [id number] [facility] [place] [address] [place] Neutrophils/100 WBC (Bld) 73.5 % Normal [facility] Comment on above: Order Comment: Speci men Type: BLOOD SPECIMENOrdering Facility: [facility] Address: [address] [place] [address] Performed By: #### 5 7021-8 ####[facility] [place] [facility]CLIA [id number] [facility] [place] [address] [place] Nucleated RBC (Bld) [#/Vol] Normal [facility] Comment on above: Order Comment: Speci men Type: BLOOD SPECIMENOrdering Facility: [facility] Address: [address] [place] [address] Performed By: #### 5 7021-8 ####[facility] [place] [facility]CLIA [id number] [facility] [place] [address] [place] Nucleated RBC/100 WBC (Bld) [Ratio] Normal [facility] Comment on above: Order Comment: Speci men Type: BLOOD SPECIMENOrdering Facility: [facility] Address: [address] [place] [address] Performed By: #### 5 7021-8 ####[facility] [place] [facility]CLIA [id number] [facility] [place] [address] [place] Platelet mean volume (Bld) [Entitic vol] 8.8 fL Low 9.0-12.7 [facility] Comment on above: Order Comment: Speci men Type: BLOOD SPECIMENOrdering Facility: [facility] Address: [address] [place] [address] Performed By: #### 5 7021-8 ####[facility] [id number] [place] [address] [facility] Platelets (Bld) [#/Vol] 397 10*3/uL Normal 150-400 [facility] Comment on above: Order Comment: Speci men Type: BLOOD SPECIMENOrdering Facility: [facility] Address: [address] [place] [address] Performed By: #### 5 7021-8 ####[facility] [id number] [place] [address] [facility] [place] RBC (Bld) [#/Vol] 4.60 10*6/uL Normal 3.90-5.20 [facility] Comment on above: Order Comment: Speci men Type: BLOOD SPECIMENOrdering Facility: [facility] Address: [address] [place] [address] Performed By: #### 5 7021-8 ####[facility] [id number] [place] [address] [facility] [place] WBC (Bld) [#/Vol] 18.80 10*3/uL High 3.70-11.00 [facility] Comment on above: Order Comment: Speci men Type: BLOOD SPECIMENOrdering Facility: [facility] Address: [address] [place] [address] Performed By: #### 5 7021-8 ####[facility] [id number] [place] [address] [facility] [place] Carboxyhemoglobin (BldCoV) [ Mass fraction]on 08-31-2023 Carboxyhemoglobin (BldV) [Mass fraction] 1.6 % Normal 0.0-2.0 [facility] Comment on above: Order Comment: Speci men Type: BLOOD SPECIMEN Ordering Facility: [facility] Address: [address] [place] [address] Result Comment: Carb oxyhemoglobin Reference Range for Smokers: 2.0-8.0% Performed By: #### 6 3524-3 #### [facility] CLIA [id number] [address] [place] [address] [facility] ED NOTEon 08-31-2023 ED NOTE HNO ID: [id number] Author: CHERYL PÉREZ RN Service: ? Author [...] to help you? No Normal [facility] ED NOTE HNO ID: [id number] Author: CARINA GARCIA RN Service: Emergency Medicine Author Type: Registered Nurse Type: ED Notes Filed: 08/31/2023 00:22 Note Text: Patient discharge instructions given to patient. Patient educated on discharge instructions and prescriptions. Patient denied having questions at this time regarding discharge instructions. Patient discharged home at this time. [facility] ED NOTE HNO ID: [id number] Author: CARINA GARCIA RN Service: Emergency Medicine Author Type: Registered Nurse Type: ED Notes Filed: 08/31/2023 00:07 Note Text: Patient informed about the name of the medication(s), what the medication(s) is(are) for, and what to expect with/from med administration. Patient given opportunity to ask questions. Medication(s) include: Toradol [facility] ED NOTE HNO ID: [id number] Author: CARINA GARCIA RN Service: Emergency Medicine Author Type: Registered Nurse Type: ED Notes Filed: 08/30/2023 23:10 Note Text: Change of shift report received from Jessica Frazier RN. I assumed patient care at this time. Normal [facility] ED PROV NOTEon 08-31-2023 ED PROV NOTE HNO ID: [id number] Author: ANDREW DELGADILLO MD Service: Emergency Medicine [...] Temp Temp src Resp SpO2 Weight Height 08/30/23215108/30/23215108/30/232151 -- 08/30/23215108/30/23215108/30/232150 -- 155/91 (!) 127 37.7 [...] 0011 Headache disorder COVID-19 test performed per [facility] [place] policy for suspected COVID community exposure. MDM [...] (more content not included)... Normal [facility] FLUABV+SARS-CoV-2+RSV Pnl Re sp KATELYNN+probeon 08-31-2023 FLUABV+SARS-CoV-2+RSV Pnl Resp KATELYNN+probe COVID 19 RESULT: Not detected The method used is RT-PCR or an equivalent NAAT method. Reference Range(the expected result in uninfected individuals): Not detected INFLUENZA A PCR: Not detected INFLUENZA B PCR: Not detected RSV PCR: Not detected Normal [facility] Comment on above: Performed By: #### 9 5941-1 ####[facility] [id number] [place] [address] [facility] ED NOTEon 08-30-2023 ED NOTE HNO ID: [id number] Author: JAZMIN JOHNSTON RN Service: Nursing Author Type: Registered Nurse Type: ED Notes Filed: 08/30/2023 21:54 Note Text: Pt reports she was seen yesterday for same problem but feels like it's worse today. Pt c/o headache and neck pain and states I just feel really weird Normal [facility] ALLIED HEALTHon 08-29-2023 ALLIED HEALTH HNO ID: [id number] Author: JUSTINO STOKES CT Service: Radiology Author Type: Technologist Type: Allied Health Filed: 08/29/2023 18:54 Note Text: Radiology Service Progress Note PATIENT NAME: Alina Malki DATE OF SERVICE: August 29, 2023 TIME: [...] PATIENT PRESENTS WITH AN IMPLANTABLE OR ATTACHED FOUNTAIN SUPERVISOR: No RADIOLOGY DEPARTMENT: CT; Exam(s) Completed: Brain PERIPHERAL IV DATA: Not applicable SIGNED BY: Justino Stokes, CT August 29, 2023 6:49 PM Normal [facility] CBC W Auto Differential pane l (Bld)on 08-29-2023 Basophils (Bld) [#/Vol] 0.04 10*3/uL Normal <0.11 [facility] Comment on above: Order Comment: Speci men Type: BLOOD SPECIMEN Ordering Facility: [facility] Address: [address] [place] [address] Performed By: #### 5 7021-8 #### [facility] CLIA [id number] [address] [place] [id number] [place] Basophils/100 WBC (Bld) 0.4 % Normal [facility] Comment on above: Order Comment: Speci men Type: BLOOD SPECIMEN Ordering Facility: [facility] Address: [address] [place] [address] Performed By: #### 5 7021-8 #### [facility] CLIA [id number] [address] [place] [address] [place] Differential cell count method Nom (Bld) Auto Normal [facility] Comment on above: Order Comment: Speci men Type: BLOOD SPECIMEN Ordering Facility: [facility] Address: [address] [place] [address] Performed By: #### 5 7021-8 #### [facility] CLIA [id number] [address] [place] [address] [place] Eosinophils (Bld) [#/Vol] 0.27 10*3/uL Normal <0.46 [facility] Comment on above: Order Comment: Speci men Type: BLOOD SPECIMEN Ordering Facility: [facility] Address: [address] [place] [address] Performed By: #### 5 7021-8 #### [facility] CLIA [id number] [address] [place] [address] [place] Eosinophils/100 WBC (Bld) 2.6 % Normal [facility] Comment on above: Order Comment: Speci men Type: BLOOD SPECIMEN Ordering Facility: [facility] Address: [address] [place] [address] Performed By: #### 5 7021-8 #### [facility] CLIA [id number] [address] [place] [address] [place] Erythrocyte distribution width (RBC) [Ratio] 14.2 % Normal 11.5-15.0 [facility] Comment on above: Order Comment: Speci men Type: BLOOD SPECIMEN Ordering Facility: [facility] Address: [address] [place] [address] Performed By: #### 5 7021-8 #### [facility] CLIA [id number] [address] [place] [address] [place] Hematocrit (Bld) [Volume fraction] 38.5 % Normal 36.0-46.0 [facility] Comment on above: Order Comment: Speci men Type: BLOOD SPECIMEN Ordering Facility: [facility] Address: [address] [place] [address] Performed By: #### 5 7021-8 #### [facility] CLIA [id number] [address] [place] [address] [place] Hemoglobin (Bld) [Mass/Vol] 12.7 g/dL Normal 11.5-15.5 [facility] Comment on above: Order Comment: Speci men Type: BLOOD SPECIMEN Ordering Facility: [facility] Address: [address] [place] [address] Performed By: #### 5 7021-8 #### [facility] CLIA [id number] [address] [place] [address] [place] Immature granulocytes (Bld) [#/Vol] 0.03 10*3/uL Normal <0.10 [facility] Comment on above: Order Comment: Speci men Type: BLOOD SPECIMEN Ordering Facility: [facility] Address: [address] [place] [address] Performed By: #### 5 7021-8 #### [facility] CLIA [id number] [address] [place] [address] [place] Immature granulocytes/100 WBC (Bld) 0.3 % Normal [facility] Comment on above: Order Comment: Speci men Type: BLOOD SPECIMEN Ordering Facility: [facility] Address: [address] [place] [address] Performed By: #### 5 7021-8 #### [facility] CLIA [id number] [address] [place] [address] [place] Lymphocytes (Bld) [#/Vol] 3.92 10*3/uL Normal 1.00-4.00 [facility] Comment on above: Order Comment: Speci men Type: BLOOD SPECIMEN Ordering Facility: [facility] Address: [address] [place] [address] Performed By: #### 5 7021-8 #### [facility] CLIA [id number] [address] Lymphocytes/100 WBC (Bld) 37.1 % Normal [facility] Comment on above: Order Comment: Speci men Type: BLOOD SPECIMEN Ordering Facility: [facility] Address: [address] [place] [address] Performed By: #### 5 7021-8 #### [facility] CLIA [id number] [address] [place] [address] [place] MCH (RBC) [Entitic mass] 27.5 pg Normal 26.0-34.0 [facility] Comment on above: Order Comment: Speci men Type: BLOOD SPECIMEN Ordering Facility: [facility] Address: [address] [place] [address] Performed By: #### 5 7021-8 #### [facility] CLIA [id number] [address] [place] [address] [place] MCHC (RBC) [Mass/Vol] 33.0 g/dL Normal 30.5-36.0 [facility] Comment on above: Order Comment: Speci men Type: BLOOD SPECIMEN Ordering Facility: [facility] Address: [address] [place] [address] Performed By: #### 5 7021-8 #### [facility] CLIA [id number] [address] [place] [address] [place] MCV (RBC) [Entitic vol] 83.3 fL Normal 80.0-100.0 [facility] Comment on above: Order Comment: Speci men Type: BLOOD SPECIMEN Ordering Facility: [facility] Address: [address] [place] [address] Performed By: #### 5 7021-8 #### [facility] CLIA [id number] [address] [place] [address] [place] Monocytes (Bld) [#/Vol] 0.38 10*3/uL Normal <0.87 [facility] Comment on above: Order Comment: Speci men Type: BLOOD SPECIMEN Ordering Facility: [facility] Address: [address] [place] [address] Performed By: #### 5 7021-8 #### [facility] CLIA [id number] [address] [place] [address] [place] Monocytes/100 WBC (Bld) 3.6 % Normal [facility] Comment on above: Order Comment: Speci men Type: BLOOD SPECIMEN Ordering Facility: [facility] Address: [address] [place] [address] Performed By: #### 5 7021-8 #### [facility] CLIA [id number] [address] [place] [address] [place] Neutrophils (Bld) [#/Vol] 5.92 10*3/uL Normal 1.45-7.50 [facility] Comment on above: Order Comment: Speci men Type: BLOOD SPECIMEN Ordering Facility: [facility] Address: [address] [place] [address] Performed By: #### 5 7021-8 #### [facility] CLIA [id number] [address] [place] [address] [place] Neutrophils/100 WBC (Bld) 56.0 % Normal [facility] Comment on above: Order Comment: Speci men Type: BLOOD SPECIMEN Ordering Facility: [facility] Address: [address] [place] [address] Performed By: #### 5 7021-8 #### [facility] CLIA [id number] [address] [place] [address] [place] Nucleated RBC (Bld) [#/Vol] Normal [facility] Comment on above: Order Comment: Speci men Type: BLOOD SPECIMEN Ordering Facility: [facility] Address: [address] [place] [address] Performed By: #### 5 7021-8 #### [facility] CLIA [id number] [address] [place] [address] [place] Nucleated RBC/100 WBC (Bld) [Ratio] Normal [facility] Comment on above: Order Comment: Speci men Type: BLOOD SPECIMEN Ordering Facility: [facility] Address: [address] [place] [address] Performed By: #### 5 7021-8 #### [facility] CLIA [id number] [address] [place] [address] [place] Platelet mean volume (Bld) [Entitic vol] 8.6 fL Low 9.0-12.7 [facility] Comment on above: Order Comment: Speci men Type: BLOOD SPECIMEN Ordering Facility: [facility] Address: [address] [place] [address] Performed By: #### 5 7021-8 #### [facility] CLIA [id number] [address] [place] [address] [place] Platelets (Bld) [#/Vol] 358 10*3/uL Normal 150-400 [facility] Comment on above: Order Comment: Speci men Type: BLOOD SPECIMEN Ordering Facility: [facility] Address: [address] [place] [address] Performed By: #### 5 7021-8 #### [facility] CLIA [id number] [address] [place] [address] [place] RBC (Bld) [#/Vol] 4.62 10*6/uL Normal 3.90-5.20 [facility] Comment on above: Order Comment: Danielai men Type: BLOOD SPECIMEN Ordering Facility: [facility] Address: [address] [place] [address] Performed By: #### 5 7021-8 #### [facility] CLIA [id number] [address] [place] [address] [facility] WBC (Bld) [#/Vol] 10.56 10*3/uL Normal 3.70-11.00 [facility] Comment on above: Order Comment: Oh sullivan Type: BLOOD SPECIMEN Ordering Facility: [facility] Address: [address] [place] [address] Performed By: #### 5 7021-8 #### [facility] CLIA [id number] [address] [place] [address] [facility] [address] BRAIN WO IVCONon 08-29-[address] BRAIN WO IVCON * * *Final Report* * * DATE OF EXAM: Aug 29 2023 6:54PM [facility] 0504 - CT BRAIN WO IVCON / [...] control(AEC) and iterative recon COMPARISON: None. RESULT: Mechanic Driver (topogram) images: No additional findings. Post-operative change: [...] IMPRESSION: No evidence of acute intracranial process Childcare Teacher: VIOLETTA Transcribe Date/Time: Aug 29 2023 7:03P Dictated by : PATRICK BLACKWELL MD This examination was interpreted and the report reviewed and electronically signed by: PATRICK BLACKWELL MD on Aug 29 2023 7:09PM EST [id number] Normal [facility] Comprehensive metabolic 2000 panelon 08-29-2023 Albumin [Mass/Vol] 4.3 g/dL Normal 3.9-4.9 [facility] Comment on above: Order Comment: Oh sullivan Type: BLOOD SPECIMEN Ordering Facility: [facility] Address: [address] [place] [address] Performed By: #### 2 4323-8, , 0-3 #### [facility] CLIA [id number] [address] [place] [address] [place] ALP [Catalytic activity/Vol] 122 U/L Normal 34-123 [facility] Comment on above: Order Comment: Oh sullivan Type: BLOOD SPECIMEN Ordering Facility: [facility] Address: [address] [place] [address] Performed By: #### 2 4323-8, , 0-3 #### [facility] CLIA [id number] [address] [place] [address] [place] ALT With P-5'-P [Catalytic activity/Vol] 14 U/L Normal 7-38 [facility] Comment on above: Order Comment: Oh sullivan Type: BLOOD SPECIMEN Ordering Facility: [facility] Address: [address] [place] [address] Performed By: #### 2 4323-8, 35989-4, 0-3 #### [facility] CLIA [id number] [address] [place] [address] [place] Anion gap [Moles/Vol] 12 mmol/L Normal 9-18 [facility] Comment on above: Order Comment: Speci men Type: BLOOD SPECIMEN Ordering Facility: [facility] Address: [address] [place] [address] Performed By: #### 2 4323-8, , 3039-3 #### [facility] CLIA [id number] [address] [place] [address] [place] AST With P-5'-P [Catalytic activity/Vol] 18 U/L Normal 13-35 [facility] Comment on above: Order Comment: Speci men Type: BLOOD SPECIMEN Ordering Facility: [facility] Address: [address] [place] [address] Performed By: #### 2 4323-8, , 3 #### [facility] CLIA [id number] [address] [place] [address] [place] Bilirubin [Mass/Vol] 0.5 mg/dL Normal 0.2-1.3 [facility] Comment on above: Order Comment: Speci men Type: BLOOD SPECIMEN Ordering Facility: [facility] Address: [address] [place] [address] Performed By: #### 2 4323-8, , 3 #### [facility] CLIA [id number] [address] [place] [address] [place] Calcium [Mass/Vol] 9.2 mg/dL Normal 8.5-10.2 [facility] Comment on above: Order Comment: Speci men Type: BLOOD SPECIMEN Ordering Facility: [facility] Address: [address] [place] [address] Performed By: #### 2 4323-8, , 3039-3 #### [facility] CLIA [id number] [address] [place] [address] [place] Chloride [Moles/Vol] 105 mmol/L Normal 97-105 [facility] Comment on above: Order Comment: Speci men Type: BLOOD SPECIMEN Ordering Facility: [facility] Address: [address] [place] [address] Performed By: #### 2 4323-8, 41131-0, 3040-3 #### [facility] CLIA [id number] [address] [place] [address] [place] CO2 [Moles/Vol] 24 mmol/L Normal 22-30 [facility] Comment on above: Order Comment: Speci men Type: BLOOD SPECIMEN Ordering Facility: [facility] Address: [address] [place] [address] Performed By: #### 2 4323-8, 59239-2, 0-3 #### [facility] CLIA [id number] [address] [place] [address] [place] [facility] Creatinine [Mass/Vol] 0.74 mg/dL Normal 0.58-0.96 [facility] Comment on above: Order Comment: Speci men Type: BLOOD SPECIMEN Ordering Facility: [facility] Address: [address] [place] [address] Performed By: #### 2 4323-8, , 0-3 #### [facility] CLIA [id number] [address] [place] [address] [facility] Creatinine and Glomerular filtration rate.predicted panel (S/P/Bld) 119 mL/min/1.73m??? Normal >=60 [facility] Comment on above: Order Comment: Speci men Type: BLOOD SPECIMEN Ordering Facility: [facility] Address: [address] [place] [address] Result Comment: Jayla mated Glomerular Filtration Rate [...] actual GFR. Performed By: #### 2 4323-8, 57484-3, 0-3 #### [facility] CLIA [id number] [address] [place] [address] [place] Glucose [Mass/Vol] 104 mg/dL High 74-99 [facility] Comment on above: Order Comment: [place] sullivan Type: BLOOD SPECIMEN Ordering Facility: [facility] Address: [address] [place] [address] Result Comment: The [place] [employer] (ADA) provides guidance for cutoff [...] Standards of Medical Care in Diabetes 2016, [place] [employer]. Diabetes Care. 2016.39(Suppl 1). Performed By: #### 2 4323-8, , 3039-3 #### [facility] CLIA [id number] [address] [place] [address] [place] Potassium [Moles/Vol] 3.9 mmol/L Normal 3.7-5.1 [facility] Comment on above: Order Comment: Oh sullivan Type: BLOOD SPECIMEN Ordering Facility: [facility] Address: [address] [place] [address] Performed By: #### 2 4323-8, , 3039-3 #### [facility] CLIA [id number] [address] [place] [address] [place] Protein [Mass/Vol] 7.5 g/dL Normal 6.3-8.0 [facility] Comment on above: Order Comment: Oh sullivan Type: BLOOD SPECIMEN Ordering Facility: [facility] Address: [address] [place] [address] Performed By: #### 2 4323-8, , 0-3 #### [facility] CLIA [id number] [address] [place] [address] [place] Sodium [Moles/Vol] 141 mmol/L Normal 136-144 [facility] Comment on above: Order Comment: Speci men Type: BLOOD SPECIMEN Ordering Facility: [facility] Address: [address] [place] [address] Performed By: #### 2 4323-8, 27502-9, 3040-3 #### [facility] CLIA [id number] [address] [place] [address] [facility] Urea nitrogen [Mass/Vol] 14 mg/dL Normal 7-21 [facility] Comment on above: Order Comment: Speci men Type: BLOOD SPECIMEN Ordering Facility: [facility] Address: [address] [place] [address] Performed By: #### 2 4323-8, 35383-9, 3040-3 #### [facility] CLIA [id number] [address] [place] [address] [facility] ED NOTEon 08-29-2023 ED NOTE HNO ID: [id number] Author: CANDY TEMPLE RN Service: Emergency Medicine [...] DATE: August 30, 2023 TIME: 12:45 PM [facility] ED NOTE HNO ID: [id number] Author: CARINA GARCIA RN Service: Emergency Medicine Author Type: Registered Nurse Type: ED Notes Filed: 08/29/2023 20:55 Note Text: Patient discharge instructions given to patient. Patient educated on discharge instructions. Patient denied having questions at this time regarding discharge instructions. Patient discharged home at this time. Normal [facility] ED NOTE HNO ID: [id number] Author: CARINA GARCIA RN Service: Emergency Medicine Author Type: Registered Nurse Type: ED Notes Filed: 08/29/2023 20:39 Note Text: Patient informed about the name of the medication(s), what the medication(s) is(are) for, and what to expect with/from med administration. Patient given opportunity to ask questions. Medication(s) include: Decadron. [facility] ED NOTE HNO ID: [id number] Author: CARINA GARCIA RN Service: Emergency Medicine Author Type: Registered Nurse Type: ED Notes Filed: 08/29/2023 19:19 Note Text: Patient informed about the name of the medication(s), what the medication(s) is(are) for, and what to expect with/from med administration. Patient given opportunity to ask questions. Medication(s) include: Toradol, Magnesium Sulfate. [facility] ED NOTE HNO ID: [id number] Author: CARINA GARCIA RN Service: Emergency Medicine Author Type: Registered Nurse Type: ED Notes Filed: 08/29/2023 20:56 Note Text: Change of shift report received from Jeanie Cody RN. I assumed patient care at this time. [facility] ED NOTE HNO ID: [id number] Author: JEANIE MCKINNON RN Service: ? Author [...] eyes and at the base of head. [facility] ED PROV NOTEon 08-29-2023 ED PROV NOTE HNO ID: [id number] Author: TORRES TREVIÑO MD Service: Emergency Medicine [...] went to urgent care and then the [facility] where she had blood work and [...] stroke scale 0. Ambulatory without ataxia. Negative eqrfqp-zu-qibj bilaterally. Negative test of skew. No vertical or horizontal nystagmus noted on exam, back no notable nystagmus on exam. (more content not included)... Normal [facility] HCG Preg Ur Qlon 08-29-2023 HCG ( test) Ql (U) Negative Normal Negative [facility] Comment on above: Order Comment: Speci men Type: URINE SPECIMEN Ordering Facility: [facility] Address: [address] [place] [address] Result Comment: This test is intended to aid in the early detection of . Very dilute urine samples, as indicated by a low specific gravity, may not contain support representative levels of hCG. This test detects [...] . Performed By: #### 2 106-3 #### [facility] CLIA [id number] [address] [place], [place] [id number] [place] Lipase SerPl-cCncon 08-29-19 24 Lipase [Catalytic activity/Vol] 18 U/L Normal 16-61 [facility] Comment on above: Order Comment: Speci men Type: BLOOD SPECIMEN Ordering Facility: [facility] Address: [address] [place] [address] Performed By: #### 2 4323-8, 29021-8, 0-3 #### [facility] CLIA [id number] [address] [place] [address] [place] Magnesium SerPl-mCncon 08-28 Magnesium [Mass/Vol] 2.0 mg/dL Normal 1.7-2.3 [facility] Comment on above: Order Comment: Speci men Type: BLOOD SPECIMEN Ordering Facility: [facility] Address: [address] [place] [address] Performed By: #### 2 4323-8, 29302-3, 0-3 #### [facility] CLIA [id number] [address] [place] [id number] [place] Urinalysis complete panel (U )on 08-29-2023 Bacteria LM.HPF (Urine sed) [#/Area] Rare Abnormal None Seen [facility] Comment on above: Order Comment: Speci men Type: URINE SPECIMEN Ordering Facility: [facility] Address: [address] [place] [address] Performed By: #### 2 4356-8 #### [facility] CLIA [id number] [address] [place] [place] [address] [place] Bilirubin Ql (U) Negative Normal Negative [facility] Comment on above: Order Comment: Speci men Type: URINE SPECIMEN Ordering Facility: [facility] Address: [address] [place] [address] Performed By: #### 2 4356-8 #### [facility] CLIA [id number] [address] [place] [address] [facility] [place] Clarity (Unsp spec) Clear Normal Clear [facility] Comment on above: Order Comment: Speci men Type: URINE SPECIMEN Ordering Facility: [facility] Address: [address] [place] [address] Performed By: #### 2 4356-8 #### [facility] CLIA [id number] [address] [place] [address] [place] Color (U) Yellow Normal Yellow [facility] Comment on above: Order Comment: Speci men Type: URINE SPECIMEN Ordering Facility: [facility] Address: [address] [place] [address] Performed By: #### 2 4356-8 #### [facility] CLIA [id number] [address] [place] [address] [facility] [place] Epithelial cells LM.HPF (Urine sed) [#/Area] Few Normal [facility] Comment on above: Order Comment: Speci men Type: URINE SPECIMEN Ordering Facility: [facility] Address: [address] [place] [address] Performed By: #### 2 4356-8 #### [facility] CLIA [id number] [address] [place] [address] [place] Glucose Test strip (U) [Mass/Vol] Negative Normal Negative [facility] Comment on above: Order Comment: Speci men Type: URINE SPECIMEN Ordering Facility: [facility] Address: [address] [place] [address] Performed By: #### 2 4356-8 #### [facility] CLIA [id number] [address] [place] [address] [facility] [place] Hemoglobin Ql (U) Trace Abnormal Negative [facility] Comment on above: Order Comment: Speci men Type: URINE SPECIMEN Ordering Facility: [facility] Address: [address] [place] [address] Performed By: #### 2 4356-8 #### [facility] CLIA [id number] [address] [place] [address] [place] Ketones Ql (U) Negative Normal Negative [facility] Comment on above: Order Comment: Speci men Type: URINE SPECIMEN Ordering Facility: [facility] Address: [address] [place] [address] Performed By: #### 2 4356-8 #### [facility] CLIA [id number] [address] [place] [address] [place] Leukocyte esterase Test strip Ql (U) Negative Normal Negative [facility] Comment on above: Order Comment: Speci men Type: URINE SPECIMEN Ordering Facility: [facility] Address: [address] [place] [address] Performed By: #### 2 4356-8 #### [facility] CLIA [id number] [address] [place] [address] [place] Nitrite Ql (U) Negative Normal Negative [facility] Comment on above: Order Comment: Speci men Type: URINE SPECIMEN Ordering Facility: [facility] Address: [address] [place] [address] Performed By: #### 2 4356-8 #### [facility] CLIA [id number] [address] [place] [address] [facility] [place] pH (U) 7.0 [pH] Normal 5.0-8.0 [facility] Comment on above: Order Comment: Speci men Type: URINE SPECIMEN Ordering Facility: [facility] Address: [address] [place] [address] Performed By: #### 2 4356-8 #### [facility] CLIA [id number] [address] [place] [address] Protein (U) [Mass/Vol] Negative Normal Negative [facility] Comment on above: Order Comment: Speci men Type: URINE SPECIMEN Ordering Facility: [facility] Address: [address] [place] [address] Performed By: #### 2 4356-8 #### [facility] CLIA [id number] [address] RBC LM.HPF (Urine sed) [#/Area] 0-3 /HPF Normal 0-3 /HPF [facility] Comment on above: Order Comment: Speci men Type: URINE SPECIMEN Ordering Facility: [facility] Address: [address] [place] [address] Performed By: #### 2 4356-8 #### [facility] CLIA [id number] [address] [place] [address] Specific gravity (U) [Rel density] 1.015 Normal 1.005-1.030 [facility] Comment on above: Order Comment: Speci men Type: URINE SPECIMEN Ordering Facility: [facility] Address: [address] [place] [address] Performed By: #### 2 4356-8 #### [facility] CLIA [id number] [address] [place] [address] Urobilinogen Ql (U) 1.0 EU/dL Normal 0.2-1.0 EU/dL [facility] Comment on above: Order Comment: Speci men Type: URINE SPECIMEN Ordering Facility: [facility] Address: [address] [place] [address] Performed By: #### 2 4356-8 #### [facility] CLIA [id number] [address] [place] [id number] [facility] [place] WBC LM.HPF (Urine sed) [#/Area] 0-5 /HPF Normal 0-5 /HPF [facility] Comment on above: Order Comment: Speci men Type: URINE SPECIMEN Ordering Facility: [facility] Address: [address] [place] [id number] Performed By: #### 2 4356-8 #### [facility] CLIA [id number] [address] [place] [address] [place] C-REACTIVE PROTEIN (CRP)on 0 12-14-2022 CRP [Mass/Vol] 1.0 mg/dL High <0.9 mg/dL [facility] Absolute lymphocyte counton 07-09-2022 Lymphocytes Auto (Unsp spec) [#/Vol] 3.72 10*3/uL 0.83-4.51 [facility] Work Phone: Basophil percentageon 2022 Basophils/100 WBC (Bld) 0.7 % 0-1 [facility] Work Phone: Chloride [Moles/Vol] 109 mmol/L 98-107 [facility] Work Phone: Eosinophils/100 WBC (Bld) 5.9 % 0-5 [facility] Work Phone: Glucose [Mass/Vol] 115 mg/dL 74-106 [facility] Work Phone: Comment on above: Fasting Glucose resu lt from 100 to 125 mg/dL suggests IMPAIRED HOMEOSTASIS per A.D.A. criteria. Neutrophils (Bld) [#/Vol] 6.2 10*3/uL 2.0-7.7 [facility] Work Phone: Neutrophils/100 WBC (Bld) 55.7 % 47-70 [facility] Work Phone: Potassium [Moles/Vol] 3.8 mmol/L 3.5-5.1 [facility] Work Phone: Sodium [Moles/Vol] 140 mmol/L 136-145 [facility] Work Phone: WBC (Bld) [#/Vol] 11.1 10*3/uL 4.4-11.0 [facility] Work Phone: Beta hCG serum qualon 2022 Beta HCG ( test) Ql Negative [facility] Work Phone: [phone] Blood erythrocytes count (nu mber/volume)on 07-09-2022 RBC (Bld) [#/Vol] 4.50 10*6/uL 4.2-5.4 [facility] Work Phone: Blood hemoglobin measurement (mass/volume)on 07-09-2022 Hemoglobin (Bld) [Mass/Vol] 12.8 g/dL 12.0-15.0 [facility] Work Phone: Blood lymphocytes/100 leukoc yteson 07-09-2022 Lymphocytes/100 WBC (Bld) 33.5 % 19-41 [facility] Work Phone: Blood monocytes/100 leukocyt eson 07-09-2022 Monocytes/100 WBC (Bld) 3.9 % 0-10 [facility] Work Phone: Blood platelet mean volumeon 07-09-2022 Platelet mean volume (Bld) [Entitic vol] 8.7 fL 6.2-12.0 [facility] Work Phone: Determination of erythrocyte mean corpuscular volume (MCV)on 07-09-2022 MCV (RBC) [Entitic vol] 85.3 fL 81-99 [facility] Work Phone: [phone] Hematocrit Auto (Bld) [Volum e fraction]on 07-09-2022 Hematocrit (Bld) [Volume fraction] 38.4 % 37-47 [facility] Work Phone: Laboratory - Chemistry and C hemistry - challengeon 07-09-2022 CO2 [Moles/Vol] 26.0 mmol/L 21.0-32.0 [facility] Work Phone: [phone] Magnesium [Mass/Vol] 2.0 mg/dL 1.6-2.6 [facility] Work Phone: [phone] Urea nitrogen/Creatinine [Mass ratio] 18.3 mg/mg 10-20 [facility] Work Phone: [phone] Laboratory - Hematology and Cell countson 07-09-2022 Erythrocyte distribution width (RBC) [Entitic vol] 40.7 fL 35.1-43.9 [facility] Work Phone: [phone] Erythrocyte distribution width (RBC) [Ratio] 13.2 % 11.6-14.6 [facility] Work Phone: [phone] Immature granulocytes/100 WBC (Bld) 0.300 % 0.0-0.9 [facility] Work Phone: [phone] Comment on above: IG% - Immature Granu locytes (promyelocytes, myelocytes and metamyelocytes) > 1% indicates that a LEFT SHIFT is Present. MCH (RBC) [Entitic mass] 28.4 pg 27.0-32.0 [facility] Work Phone: [phone] Nucleated RBC/100 WBC (Bld) [Ratio] 0 % 0-5 [facility] Work Phone: [phone] MCHC Auto (RBC) [Mass/Vol]on 07-09-2022 MCHC (RBC) [Mass/Vol] 33.3 g/dL 32-36 [facility] Work Phone: [phone] No Panel Informationon 07-09 D-Dimer Quantitative (PE/DVT) 0.49 FEU/ug/m 0.27-0.49 [facility] Work Phone: [phone] Comment on above: NORMAL D-Dimer level (<0.50) indicates no DVT or PE. Estimated Creatinine Clearance Calc 113.41 ml/min [facility] Work Phone: [phone] GFR (MDRD) Amer 149 mL/min >60 [facility] Work Phone: [phone] Comment on above: GFR Calc Estimated GFR (MDRD) Non-Af Amer 123 mL/min >60 [facility] Work Phone: [phone] Comment on above: Non- GFR Calc Thyroid Stimulating Hormone (TSH) 5.14 uIU/mL 0.358-3.74 [facility] Work Phone: Platelets bldon 07-09-2022 Platelets (Bld) [#/Vol] 342 10*3/uL 150-450 [facility] Work Phone: Serum or plasma calcium ajmi urement (mass/volume)on 07-09-2022 Calcium [Mass/Vol] 8.5 mg/dL 8.5-10.1 [facility] Work Phone: Serum or plasma creatinine m easurement (mass/volume)on 07-09-2022 Creatinine [Mass/Vol] 0.66 mg/dL 0.55-1.02 [facility] Work Phone: Comment on above: The validity of the calculated GFR & GFRAA in patients over 70 years has not been determined. Clinical correlation is essential. Serum or plasma urea nitroge n measurement (mass/volume)on 07-09-2022 Urea nitrogen [Mass/Vol] 12 mg/dL 7-18 [facility] Work Phone: Thin prep Papanicolaou smear with manual screeningon 07-09-2022 Thin prep Papanicolaou smear with manual screening 5 5-15 [facility] Work Phone: XR WRIST GENERAL 3V PA/LAT/O BL RIGHTon 05-14-2022 [facility] XR Wrist - right PA and Late ral and Obliqueon 05-14-2022 IMPRESSION: No acute radiographic abnormalities seen in the right wrist. Childcare Teacher: PSCB Transcribe Date/Time: May 14 2022 [...] soft tissue swelling. DIVISION OF RADIOLOGY Provider, [facility] - 05/14/2022 * * *Final Report* * [...] radiographic abnormalities seen in the right wrist. Childcare Teacher: PSCB Transcribe Date/Time: May 14 2022 5:02P Dictated by : ERICA HOWARD MD This examination was interpreted and the report reviewed and electronically signed by: ERICA HOWARD MD on May 14 2022 5:04PM [facility] Radiology Study observation (narrative) [facility] XR Wrist - right PA and Late ral and ObliqueOrdered By: Ccf Provider on 05-14-2022 [facility] Absolute lymphocyte counton 04-09-2022 Lymphocytes Auto (Unsp spec) [#/Vol] 3.84 10*3/uL 0.83-4.51 [facility] Work Phone: Basophil percentageon 2021 Basophil percentage 0 SEEN /hpf 0-5 [facility] Work Phone: Basophils/100 WBC (Bld) 0.6 % 0-1 [facility] Work Phone: Bilirubin [Mass/Vol] 0.50 mg/dL 0.20-1.00 [facility] Work Phone: Comment on above: For patients on eltr ombopag therapy, use of Dimension [place] TBIL is not recommended. Chloride [Moles/Vol] 108 mmol/L 98-107 [facility] Work Phone: Eosinophils/100 WBC (Bld) 3.1 % 0-5 [facility] Work [phone] Glucose [Mass/Vol] 104 mg/dL 74-106 [facility] Work Phone: Comment on above: Fasting Glucose resu lt from 100 to 125 mg/dL suggests IMPAIRED HOMEOSTASIS per A.D.A. criteria. Neutrophils (Bld) [#/Vol] 5.0 10*3/uL 2.0-7.7 [facility] Work Phone: Neutrophils/100 WBC (Bld) 51.4 % 47-70 [facility] Work Phone: Potassium [Moles/Vol] 3.6 mmol/L 3.5-5.1 [facility] Work Phone: Protein [Mass/Vol] 6.8 g/dL 6.4-8.2 [facility] Work Phone: Sodium [Moles/Vol] 140 mmol/L 136-145 [facility] Work Phone: WBC (Bld) [#/Vol] 9.7 10*3/uL 4.4-11.0 [facility] Work Phone: Bilirubin Test strip Ql (U)o n 04-09-2022 Bilirubin Ql (U) Negative Negative [facility] Work Phone: Blood erythrocytes count (nu mber/volume)on 04-09-2022 RBC (Bld) [#/Vol] 4.53 10*6/uL 4.2-5.4 [facility] Work Phone: Blood hemoglobin measurement (mass/volume)on 04-09-2022 Hemoglobin (Bld) [Mass/Vol] 13.2 g/dL 12.0-15.0 [facility] Work Phone: Blood lymphocytes/100 leukoc yteson 04-09-2022 Lymphocytes/100 WBC (Bld) 39.5 % 19-41 [facility] Work Phone: Blood monocytes/100 leukocyt eson 04-09-2022 Monocytes/100 WBC (Bld) 5.2 % 0-10 [facility] Work Phone: [phone] Blood platelet mean volumeon 04-09-2022 Platelet mean volume (Bld) [Entitic vol] 8.8 fL 6.2-12.0 [facility] Work Phone: [phone] Determination of erythrocyte mean corpuscular volume (MCV)on 04-09-2022 MCV (RBC) [Entitic vol] 87.4 fL 81-99 [facility] Work Phone: Direct bilirubinon Bilirubin.direct [Mass/Vol] 0.13 mg/dL 0.00-0.30 [facility] Work Phone: [phone] Hematocrit Auto (Bld) [Volum e fraction]on 04-09-2022 Hematocrit (Bld) [Volume fraction] 39.6 % 37-47 [facility] Work Phone: Ketones Test strip Ql (U)on 04-09-2022 Ketones Ql (U) Negative Negative [facility] Work Phone: [phone] Laboratory - Chemistry and C hemistry - challengeon 04-09-2022 HCG ( test) Ql (U) Negative [facility] Work Phone: [phone] Comment on above: Very dilute urine sp ecimens, as indicated by a low specificgravity, may not contain support representative levels of hCG. If is still suspected, a first morning urinespecimen should be collected 48 hours later and tested. ALP [Catalytic activity/Vol] 104 U/L 45-117 [facility] Work Phone: ALT [Catalytic activity/Vol] 19 U/L 13-56 [facility] Work Phone: [phone] CO2 [Moles/Vol] 24.0 mmol/L 21.0-32.0 [facility] Work Phone: [phone] Globulin (S) [Mass/Vol] 3.3 g/dL 2.2-4.2 [facility] Work Phone: [phone] Lipase [Catalytic activity/Vol] 100 U/L 73-393 [facility] Work Phone: [phone] Urea nitrogen/Creatinine [Mass ratio] 14.3 mg/mg 10-20 [facility] Work Phone: [phone] Laboratory - Hematology and Cell countson 04-09-2022 Erythrocyte distribution width (RBC) [Entitic vol] 41.9 fL 35.1-43.9 [facility] Work Phone: [phone] Erythrocyte distribution width (RBC) [Ratio] 13.2 % 11.6-14.6 [facility] Work Phone: [phone] Immature granulocytes/100 WBC (Bld) 0.200 % 0.0-0.9 [facility] Work Phone: [phone] Comment on above: IG% - Immature Granu locytes (promyelocytes, myelocytes and metamyelocytes) > 1% indicates that a LEFT SHIFT is Present. MCH (RBC) [Entitic mass] 29.1 pg 27.0-32.0 [facility] Work Phone: [phone] Nucleated RBC/100 WBC (Bld) [Ratio] 0 % 0-5 [facility] Work Phone: [phone] MCHC Auto (RBC) [Mass/Vol]on 04-09-2022 MCHC (RBC) [Mass/Vol] 33.3 g/dL 32-36 [facility] Work Phone: [phone] Mucus LM Ql (Urine sed)on Mucus Ql (Urine sed) 0 SEEN /hpf [facility] Work Phone: [phone] Nitrite Test strip Ql (U)on 04-09-2022 Nitrite Ql (U) Negative Negative [facility] Work Phone: [phone] Panel Informationon 04-09 Estimated Creatinine Clearance Calc 97.21 ml/min [facility] Work Phone: [phone] Estimated GFR (MDRD) Amer 124 mL/min >60 [facility] Work Phone: Comment on above: GFR Calc Estimated GFR (MDRD) Non-Af Amer 102 mL/min >60 [facility] Work Phone: Comment on above: Non- GFR Calc Platelets bldon 04-09-2022 Platelets (Bld) [#/Vol] 294 10*3/uL 150-450 [facility] Work Phone: Protein Test strip Ql (U)on 04-09-2022 Protein Ql (U) Negative Negative [facility] Work Phone: Serum or plasma albumin jami urement (mass/volume)on 04-09-2022 Albumin [Mass/Vol] 3.5 g/dL 3.2-5.0 [facility] Work Phone: Serum or plasma calcium jami urement (mass/volume)on 04-09-2022 Calcium [Mass/Vol] 9.0 mg/dL 8.5-10.1 [facility] Work Phone: Serum or plasma creatinine m easurement (mass/volume)on 04-09-2022 Creatinine [Mass/Vol] 0.77 mg/dL 0.55-1.02 [facility] Work Phone: Comment on above: The validity of the calculated GFR & GFRAA in patients over 70 years has not been determined. Clinical correlation is essential. Serum or plasma urea nitroge n measurement (mass/volume)on 04-09-2022 Urea nitrogen [Mass/Vol] 11 mg/dL 7-18 [facility] Work Phone: Squamous epithelial cells de tection in urine sediment by light microscopyon 04-09-2022 Epithelial cells.squamous LM Ql (Urine sed) 0-5 SEEN /hpf 5-10 [facility] Work Phone: Thin prep Papanicolaou smear with manual screeningon 04-09-2022 Thin prep Papanicolaou smear with manual screening 20 U/L 15-37 [facility] Work Phone: [phone] Thin prep Papanicolaou smear with manual screening 8 5-15 [facility] Work Phone: Urine blood detectionon 03-24 RBC Ql (U) Negative Negative [facility] Work Phone: RBC Ql (U) 0 SEEN /hpf 0-5 [facility] Work Phone: Urine clarityon 04-09-2022 Clarity (U) Clear Clear [facility] Work Phone: Urine color determinationon 04-09-2022 Color (U) Yellow Yellow [facility] Work Phone: Urine glucose detectionon Glucose Ql (U) Normal mg/dl Normal [facility] Work Phone: Urine leukocyte esterase det ection by dipstickon 04-09-2022 Leukocyte esterase Test strip Ql (U) Negative Negative [facility] Work Phone: Urine pHon 04-09-2022 pH (U) 6.0 [pH] 5.0 - 8.0 [facility] Work Phone: Urine sediment bacteria coun t by microscopy (number/high power field)on 04-09-2022 Bacteria LM.HPF (Urine sed) [#/Area] RARE /hpf None Seen [facility] Work Phone: Urine specific gravity measu rementon 04-09-2022 Specific gravity (U) [Rel density] 1.020 1.002-1.030 [facility] Work Phone: Urobilinogen Auto test strip Ql (U)on 04-09-2022 Urobilinogen Ql (U) Normal mg/dl Normal [facility] Work Phone: Absolute lymphocyte counton 12-12-2021 Lymphocytes Auto (Unsp spec) [#/Vol] 1.35 10*3/uL 0.83-4.51 [facility] Work Phone: Basophil percentageon 2021 Basophils/100 WBC (Bld) 0.1 % 0-1 [facility] Work Phone: Bilirubin [Mass/Vol] 1.60 mg/dL 0.20-1.00 [facility] Work Phone: Comment on above: For patients on eltr ombopag therapy, use of Dimension [place] TBIL is not recommended. Chloride [Moles/Vol] 108 mmol/L 98-107 [facility] Work Phone: Eosinophils/100 WBC (Bld) 1.6 % 0-3 [facility] Work Phone: Glucose [Mass/Vol] 97 mg/dL 74-106 [facility] Work Phone: Neutrophils (Bld) [#/Vol] 7.3 10*3/uL 2.0-7.7 [facility] Work Phone: Neutrophils/100 WBC (Bld) 79.5 % 34-64 [facility] Work Phone: Potassium [Moles/Vol] 3.9 mmol/L 3.5-5.1 [facility] Work Phone: Protein [Mass/Vol] 7.2 g/dL 6.4-8.2 [facility] Work Phone: Sodium [Moles/Vol] 139 mmol/L 136-145 [facility] Work Phone: WBC (Bld) [#/Vol] 9.2 10*3/uL 4.5-13.0 [facility] Work Phone: Basophil percentage 0 SEEN /hpf 0-5 [facility] Work Phone: Beta hCG serum qualon 2021 Beta HCG ( test) Ql Negative [facility] Work Phone: Bilirubin Test strip Ql (U)o n 12-12-2021 Bilirubin Ql (U) Negative Negative [facility] Work Phone: Blood erythrocytes count (nu mber/volume)on 12-12-2021 RBC (Bld) [#/Vol] 4.87 10*6/uL 4.1-4.8 [facility] Work Phone: Blood hemoglobin measurement (mass/volume)on 12-12-2021 Hemoglobin (Bld) [Mass/Vol] 14.3 g/dL 12.0-15.0 [facility] Work Phone: Blood lymphocytes/100 leukoc yteson 12-12-2021 Lymphocytes/100 WBC (Bld) 14.7 % 25-45 [facility] Work Phone: [phone] Blood monocytes/100 leukocyt eson 12-12-2021 Monocytes/100 WBC (Bld) 3.7 % 3-6 [facility] Work Phone: [phone] Blood platelet mean volumeon 12-12-2021 Platelet mean volume (Bld) [Entitic vol] 9.1 fL 6.2-12.0 [facility] Work Phone: [phone] Determination of erythrocyte mean corpuscular volume (MCV)on 12-12-2021 MCV (RBC) [Entitic vol] 84.0 fL 78-96 [facility] Work Phone: [phone] Hematocrit Auto (Bld) [Volum e fraction]on 12-12-2021 Hematocrit (Bld) [Volume fraction] 40.9 % 37-46 [facility] Work Phone: Ketones Test strip Ql (U)on 12-12-2021 Ketones Ql (U) Negative Negative [facility] Work Phone: Laboratory - Chemistry and C hemistry - challengeon 12-12-2021 ALP [Catalytic activity/Vol] 82 U/L 47-119 [facility] Work Phone: [phone] ALT [Catalytic activity/Vol] 21 U/L 13-56 [facility] Work Phone: [phone] CO2 [Moles/Vol] 24.0 mmol/L 21.0-32.0 [facility] Work Phone: Globulin (S) [Mass/Vol] 3.5 g/dL 2.2-4.2 [facility] Work Phone: Lipase [Catalytic activity/Vol] 92 U/L 73-393 [facility] Work Phone: [phone] Urea nitrogen/Creatinine [Mass ratio] 21.9 mg/mg 10-20 [facility] Work Phone: [phone] Laboratory - Hematology and Cell countson 12-12-2021 Erythrocyte distribution width (RBC) [Entitic vol] 39.3 fL 35.1-43.9 [facility] Work Phone: [phone] Erythrocyte distribution width (RBC) [Ratio] 13.0 % 11.6-14.6 [facility] Work Phone: [phone] Immature granulocytes/100 WBC (Bld) 0.400 % 0.0-0.9 [facility] Work Phone: [phone] Comment on above: IG% - Immature Granu locytes (promyelocytes, myelocytes and metamyelocytes) > 1% indicates that a LEFT SHIFT is Present. MCH (RBC) [Entitic mass] 29.4 pg 25.0-35.0 [facility] Work Phone: [phone] Nucleated RBC/100 WBC (Bld) [Ratio] 0 % 0-5 [facility] Work Phone: [phone] MCHC Auto (RBC) [Mass/Vol]on 12-12-2021 MCHC (RBC) [Mass/Vol] 35.0 g/dL 32-36 [facility] Work Phone: [phone] Mucus LM Ql (Urine sed)on Mucus Ql (Urine sed) 0 SEEN /hpf [facility] Work Phone: [phone] Nitrite Test strip Ql (U)on 12-12-2021 Nitrite Ql (U) Negative Negative [facility] Work Phone: [phone] Panel Informationon 12-12 Estimated Creatinine Clearance Calc 117.92 ml/min [facility] Work Phone: [phone] Estimated GFR (MDRD) Amer 155 mL/min >60 [facility] Work Phone: [phone] Comment on above: GFR Calc Estimated GFR (MDRD) Non-Af Amer 128 mL/min >60 [facility] Work Phone: [phone] Comment on above: Non- GFR Calc Platelets bldon 12-12-2021 Platelets (Bld) [#/Vol] 227 10*3/uL 150-450 [facility] Work Phone: [phone] Protein Test strip Ql (U)on 12-12-2021 Protein Ql (U) Negative Negative [facility] Work Phone: [phone] Serum or plasma albumin jami urement (mass/volume)on 12-12-2021 Albumin [Mass/Vol] 3.7 g/dL 3.2-5.0 [facility] Work Phone: [phone] Serum or plasma albumin/glob ulin mass ratioon 12-12-2021 Albumin/Globulin [Mass ratio] 1.1 {ratio} 0.9-2.4 [facility] Work Phone: [phone] Serum or plasma calcium jami urement (mass/volume)on 12-12-2021 Calcium [Mass/Vol] 8.7 mg/dL 8.5-10.1 [facility] Work Phone: [phone] Serum or plasma creatinine m easurement (mass/volume)on 12-12-2021 Creatinine [Mass/Vol] 0.64 mg/dL 0.55-1.02 [facility] Work Phone: [phone] Comment on above: The validity of the calculated GFR & GFRAA in patients over 70 years has not been determined. Clinical correlation is essential. Serum or plasma urea nitroge n measurement (mass/volume)on 12-12-2021 Urea nitrogen [Mass/Vol] 14 mg/dL 7-18 [facility] Work Phone: [phone] Squamous epithelial cells de tection in urine sediment by light microscopyon 12-12-2021 Epithelial cells.squamous LM Ql (Urine sed) 0-5 SEEN /hpf 5-10 [facility] Work Phone: [phone] Thin prep Papanicolaou smear with manual screeningon 12-12-2021 Thin prep Papanicolaou smear with manual screening 19 U/L 15-37 [facility] Work Phone: [phone] Thin prep Papanicolaou smear with manual screening 7 5-15 [facility] Work Phone: Urine blood detectionon - RBC Ql (U) Negative Negative [facility] Work Phone: RBC Ql (U) 0 SEEN /hpf 0-5 [facility] Work Phone: Urine clarityon 12-12-2021 Clarity (U) Sl. Cloudy Clear [facility] Work Phone: Urine color determinationon 12-12-2021 Color (U) Yellow Yellow [facility] Work Phone: Urine glucose detectionon Glucose Ql (U) Normal mg/dl Normal [facility] Work Phone: Urine leukocyte esterase det ection by dipstickon 12-12-2021 Leukocyte esterase Test strip Ql (U) Negative Negative [facility] Work Phone: Urine pHon 12-12-2021 pH (U) 8.0 [pH] 5.0 - 8.0 [facility] Work Phone: Urine sediment bacteria coun t by microscopy (number/high power field)on 12-12-2021 Bacteria LM.HPF (Urine sed) [#/Area] 1 /[HPF] None Seen [facility] Work Phone: Urine specific gravity measu rementon 12-12-2021 Specific gravity (U) [Rel density] 1.015 1.002-1.030 [facility] Work Phone: Urobilinogen Auto test strip Ql (U)on 12-12-2021 Urobilinogen Ql (U) Normal mg/dl Normal [facility] Work Phone: Absolute lymphocyte counton 10-01-2021 Lymphocytes Auto (Unsp spec) [#/Vol] 3.00 10*3/uL 0.83-4.51 [facility] Work Phone: Basophil percentageon 2021 Basophils/100 WBC (Bld) 0.5 % 0-1 [facility] Work Phone: Bilirubin [Mass/Vol] 0.80 mg/dL 0.20-1.00 [facility] Work Phone: Comment on above: For patients on eltr ombopag therapy, use of Dimension [place] TBIL is not recommended. Chloride [Moles/Vol] 107 mmol/L 98-107 [facility] Work Phone: Eosinophils/100 WBC (Bld) 1.4 % 0-3 [facility] Work Phone: Glucose [Mass/Vol] 120 mg/dL 74-106 [facility] Work Phone: Comment on above: Fasting Glucose resu lt from 100 to 125 mg/dL suggests IMPAIRED HOMEOSTASIS per A.D.A. criteria. Neutrophils (Bld) [#/Vol] 7.8 10*3/uL 2.0-7.7 [facility] Work Phone: Neutrophils/100 WBC (Bld) 68.2 % 34-64 [facility] Work Phone: Potassium [Moles/Vol] 3.9 mmol/L 3.5-5.1 [facility] Work Phone: Protein [Mass/Vol] 6.9 g/dL 6.4-8.2 [facility] Work Phone: Sodium [Moles/Vol] 138 mmol/L 136-145 [facility] Work Phone: WBC (Bld) [#/Vol] 11.5 10*3/uL 4.5-13.0 [facility] Work Phone: Basophil percentage 0-5 SEEN /hpf 0-5 [facility] Work Phone: Bilirubin Test strip Ql (U)o n 10-01-2021 Bilirubin Ql (U) Negative Negative [facility] Work Phone: Blood erythrocytes count (nu mber/volume)on 10-01-2021 RBC (Bld) [#/Vol] 4.46 10*6/uL 4.1-4.8 [facility] Work Phone: Blood hemoglobin measurement (mass/volume)on 10-01-2021 Hemoglobin (Bld) [Mass/Vol] 13.3 g/dL 12.0-15.0 [facility] Work Phone: Blood lymphocytes/100 leukoc yteson 10-01-2021 Lymphocytes/100 WBC (Bld) 26.1 % 25-45 [facility] Work Phone: [phone] Blood monocytes/100 leukocyt eson 10-01-2021 Monocytes/100 WBC (Bld) 3.3 % 3-6 [facility] Work Phone: [phone] Blood platelet mean volumeon 10-01-2021 Platelet mean volume (Bld) [Entitic vol] 9.1 fL 6.2-12.0 [facility] Work Phone: Culture, urineon 10-01-2021 Bacteria identified Cx Nom (U) Positive [facility] Work Phone: Determination of erythrocyte mean corpuscular volume (MCV)on 10-01-2021 MCV (RBC) [Entitic vol] 87.4 fL 78-96 [facility] Work Phone: Direct bilirubinon Bilirubin.direct [Mass/Vol] 0.22 mg/dL 0.00-0.30 [facility] Work Phone: [phone] Hematocrit Auto (Bld) [Volum e fraction]on 10-01-2021 Hematocrit (Bld) [Volume fraction] 39.0 % 37-46 [facility] Work Phone: Ketones Test strip Ql (U)on 10-01-2021 Ketones Ql (U) Negative Negative [facility] Work Phone: [phone] Laboratory - Chemistry and C hemistry - challengeon 10-01-2021 ALP [Catalytic activity/Vol] 93 U/L 47-119 [facility] Work Phone: [phone] ALT [Catalytic activity/Vol] 38 U/L 13-56 [facility] Work Phone: [phone] CO2 [Moles/Vol] 27.0 mmol/L 21.0-32.0 [facility] Work Phone: [phone] Globulin (S) [Mass/Vol] 3.3 g/dL 2.2-4.2 [facility] Work Phone: [phone] Lipase [Catalytic activity/Vol] 58 U/L 73-393 [facility] Work Phone: [phone] Urea nitrogen/Creatinine [Mass ratio] 14.9 mg/mg 10-20 [facility] Work Phone: [phone] HCG ( test) Ql (U) Negative [facility] Work Phone: [phone] Comment on above: Very dilute urine sp ecimens, as indicated by a low specificgravity, may not contain support representative levels of hCG. If is still suspected, a first morning urinespecimen should be collected 48 hours later and tested. Laboratory - Hematology and Cell countson 10-01-2021 Erythrocyte distribution width (RBC) [Entitic vol] 39.4 fL 35.1-43.9 [facility] Work Phone: [phone] Erythrocyte distribution width (RBC) [Ratio] 12.2 % 11.6-14.6 [facility] Work Phone: [phone] Immature granulocytes/100 WBC (Bld) 0.500 % 0.0-0.9 [facility] Work Phone: [phone] Comment on above: IG% - Immature Granu locytes (promyelocytes, myelocytes and metamyelocytes) > 1% indicates that a LEFT SHIFT is Present. MCH (RBC) [Entitic mass] 29.8 pg 25.0-35.0 [facility] Work Phone: [phone] Nucleated RBC/100 WBC (Bld) [Ratio] 0 % 0-5 [facility] Work Phone: [phone] MCHC Auto (RBC) [Mass/Vol]on 10-01-2021 MCHC (RBC) [Mass/Vol] 34.1 g/dL 32-36 [facility] Work Phone: [phone] Mucus LM Ql (Urine sed)on Mucus Ql (Urine sed) 0 SEEN /hpf [facility] Work Phone: Nitrite Test strip Ql (U)on 10-01-2021 Nitrite Ql (U) Negative Negative [facility] Work Phone: No Panel Informationon 10-01 Estimated Creatinine Clearance Calc 74.72 ml/min [facility] Work Phone: Estimated GFR (MDRD) Amer 91 mL/min >60 [facility] Work Phone: Comment on above: GFR Calc Estimated GFR (MDRD) Non-Af Amer 75 mL/min >60 [facility] Work Phone: Comment on above: Non- GFR Calc Platelets bldon 10-01-2021 Platelets (Bld) [#/Vol] 298 10*3/uL 150-450 [facility] Work Phone: Protein Test strip Ql (U)on 10-01-2021 Protein Ql (U) 30 mg/dl Negative [facility] Work Phone: Serum or plasma albumin jami urement (mass/volume)on 10-01-2021 Albumin [Mass/Vol] 3.6 g/dL 3.2-5.0 [facility] Work Phone: Serum or plasma calcium jami urement (mass/volume)on 10-01-2021 Calcium [Mass/Vol] 8.7 mg/dL 8.5-10.1 [facility] Work Phone: Serum or plasma creatinine m easurement (mass/volume)on 10-01-2021 Creatinine [Mass/Vol] 1.01 mg/dL 0.55-1.02 [facility] Work Phone: Comment on above: The validity of the calculated GFR & GFRAA in patients over 70 years has not been determined. Clinical correlation is essential. Serum or plasma urea nitroge n measurement (mass/volume)on 10-01-2021 Urea nitrogen [Mass/Vol] 15 mg/dL 7-18 [facility] Work Phone: Squamous epithelial cells de tection in urine sediment by light microscopyon 10-01-2021 Epithelial cells.squamous LM Ql (Urine sed) 0-5 SEEN /hpf 5-10 [facility] Work Phone: Thin prep Papanicolaou smear with manual screeningon 10-01-2021 Thin prep Papanicolaou smear with manual screening 22 U/L 15-37 [facility] Work Phone: Thin prep Papanicolaou smear with manual screening 4 5-15 [facility] Work Phone: Urine blood detectionon 09-22 RBC Ql (U) 25 /ul Negative [facility] Work Phone: RBC Ql (U) 0 SEEN /hpf 0-5 [facility] Work Phone: Urine clarityon 10-01-2021 Clarity (U) Clear Clear [facility] Work Phone: Urine color determinationon 10-01-2021 Color (U) Yellow Yellow [facility] Work Phone: Urine glucose detectionon Glucose Ql (U) Normal mg/dl Normal [facility] Work Phone: Urine leukocyte esterase det ection by dipstickon 10-01-2021 Leukocyte esterase Test strip Ql (U) 25 /ul Negative [facility] Work Phone: Urine pHon 10-01-2021 pH (U) 7.0 [pH] 5.0 - 8.0 [facility] Work Phone: Urine sediment bacteria coun t by microscopy (number/high power field)on 10-01-2021 Bacteria LM.HPF (Urine sed) [#/Area] 2 /[HPF] None Seen [facility] Work Phone: Urine specific gravity measu rementon 10-01-2021 Specific gravity (U) [Rel density] 1.015 1.002-1.030 [facility] Work Phone: Urobilinogen Auto test strip Ql (U)on 10-01-2021 Urobilinogen Ql (U) 4 mg/dl Normal [facility] Work Phone: Complete Blood Counton 03-18 Differential Complete Automated Normal [facility] Comment on above: Order Comment: Is th is specimen being sent to an external lab?->No Performed By: #### C BC ####[address] [phone] % Neutrophils 56.2 % Normal 34.0-64.0 [facility] Comment on above: Order Comment: Is th is specimen being sent to an external lab?->No Performed By: #### C BC ####[address] [phone] Basophils/100 WBC Auto (Bld) 0.60 % Normal 0.00-1.00 [facility] Comment on above: Order Comment: Is th is specimen being sent to an external lab?->No Performed By: #### C BC ####[address] [phone] Eosinophils/100 WBC Auto (Bld) 8.60 % High 0.00-3.00 [facility] Comment on above: Order Comment: Is th is specimen being sent to an external lab?->No Performed By: #### C BC ####[address] [phone] Erythrocyte distribution width Auto Ratio (RBC) 13.1 % Normal 0.0-14.4 [facility] Comment on above: Order Comment: Is th is specimen being sent to an external lab?->No Performed By: #### C BC ####[address] [phone] Hematocrit Auto Volume Fraction (Bld) 41.8 % Normal 37.0-46.0 [facility] Comment on above: Order Comment: Is th is specimen being sent to an external lab?->No Performed By: #### C BC ####[address] [phone] Hemoglobin mass conc (Bld) 14.2 g/dL Normal 12.0-15.0 [facility] Comment on above: Order Comment: Is th is specimen being sent to an external lab?->No Performed By: #### C BC ####[address] [phone] Immature granulocytes/100 WBC (Bld) 0.20 % Normal [facility] Comment on above: Order Comment: Is th is specimen being sent to an external lab?->No Result Comment: Sheryl ture Granulocyte Percent includes promyelocytes, myelocytes,and metamyelocytes. IG% > 1.0 indicates a left shift ispresent. With automated differentials, bands are includedin the neutrophil count and not in the Immature GranulocytePercent. Performed By: #### C BC ####[address] [phone] Lymphocytes/100 WBC Auto (Bld) 31.3 % Normal 25.0-45.0 [facility] Comment on above: Order Comment: Is th is specimen being sent to an external lab?->No Performed By: #### C BC ####[address] [phone] MCH Auto Entitic mass (RBC) 28.0 pg Normal 25.0-35.0 [facility] Comment on above: Order Comment: Is th is specimen being sent to an external lab?->No Performed By: #### C BC ####[address] [phone] MCHC Auto mass conc (RBC) 34.0 % Normal 31.0-37.0 [facility] Comment on above: Order Comment: Is th is specimen being sent to an external lab?->No Performed By: #### C BC ####[address] [phone] MCV Auto Entitic volume (RBC) 82.4 fL Normal 78.0-96.0 [facility] Comment on above: Order Comment: Is th is specimen being sent to an external lab?->No Performed By: #### C BC ####[address] [phone] Monocytes/100 WBC Auto (Bld) 3.10 % Normal 3.00-6.00 [facility] Comment on above: Order Comment: Is th is specimen being sent to an external lab?->No Performed By: #### C BC ####[address] [phone] Neutrophils Auto #/vol (Bld) 5.3 Normal [facility] Comment on above: Order Comment: Is th is specimen being sent to an external lab?->No Performed By: #### C BC ####[address] [phone] Nucleated RBC/100 WBC Ratio (Bld) 0.0 % Normal -1.0-0.0 [facility] Comment on above: Order Comment: Is th is specimen being sent to an external lab?->No Performed By: #### C BC ####[address] [phone] Platelet mean volume Auto Entitic volume (Bld) 9.7 fL Normal [facility] Comment on above: Order Comment: Is th is specimen being sent to an external lab?->No Result Comment: MPV is plateletrange and agedependent Performed By: #### C BC ####[address] [phone] Platelets Auto #/vol (Bld) 288 10*3/uL Normal 150-450 [facility] Comment on above: Order Comment: Is th is specimen being sent to an external lab?->No Performed By: #### C BC ####[address] [place] [phone] RBC Auto #/vol (Bld) 5.07 10E12/L High 4.10-4.80 [facility] Comment on above: Order Comment: Is th is specimen being sent to an external lab?->No Performed By: #### C BC ####[address] [phone] WBC Auto #/vol (Bld) 9.5 10*3/uL Normal 4.5-13.[address] [facility] Comment on above: Order Comment: Is th is specimen being sent to an external lab?->No Performed By: #### C BC ####[address] [phone] Lipid Panelon 03-18-2018 Cholesterol in HDL mass conc 49 mg/dL Normal [facility] Comment on above: Order Comment: Is th is specimen being sent to an external lab?->No Result Comment: Male < 40mg/dL High RiskFemale < 50mg/dL High RiskMale & Female > 60mg/dL Low Risk Performed By: #### L IPID ####[address] [id number] Cholesterol in LDL mass conc 71 mg/dl Normal 0-129 [facility] Comment on above: Order Comment: Is th is specimen being sent to an external lab?->No Result Comment: Chula rable <130 mg/dLBorderline 130-159 mg/dLHigh Risk >159 mg/dl Performed By: #### L IPID ####[address] [id number] Cholesterol in VLDL mass conc 21 mg/dL Normal [facility] Comment on above: Order Comment: Is th is specimen being sent to an external lab?->No Performed By: #### L IPID ####[address] [id number] Cholesterol mass conc 141 mg/dL Normal 0-[address] [facility] Comment on above: Order Comment: Is th is specimen being sent to an external lab?->No Result Comment: Chula rable <200 mg/dLBorderline 200-239 mg/dLHigh Risk >239 mg/dL Performed By: #### L IPID ####[address] [id number] Triglyceride mass conc 106 mg/dL Normal [facility] Comment on above: Order Comment: Is th is specimen being sent to an external lab?->No Result Comment: Norm al <150 mg/dlBorderline 150-199 mg/dlHigh 200-500 mg/dlVery High >500 mg/dlResult invalid if not a fasting specimen. Performed By: #### L IPID ####[address] [id number] T4,Freeon 03-18-2018 T4 free mass conc 1.3 ng/dL Normal 0.8-1.4 [facility] Comment on above: Order Comment: Is th is specimen being sent to an external lab?->No Result Comment: New Reference Ranges - effective 04/13/09. Performed By: #### T 4FR ####[address] [phone] TSHon 03-18-2018 Thyrotropin Qn 3.766 uIU/mL Normal 0.350-5.500 [facility] Comment on above: Order Comment: Is th is specimen being sent to an external lab?->No Performed By: #### T SH ####[address] [phone] Progress Noteon 03-17-2018 Unit Operator Authentication Interface Message Text Alina Malik is [...] completed?: YesElectronically signed by: Deann Manuel MD [facility] Unit Operator Authentication Interface Message Text Patient ID: Alina Malik is a 13 y.o. female. Her chief complaint(s)include: 13 YEAR WELL CHILD and Thyroid ProblemAssessment1. Encounter for routine child health examination without abnormal findings2. Abnormal weight gain3. Overweight4. Fatigue, unspecified type5. Seasonal allergic rhinitis due to pollen6. Exercise counseling7. Encounter for dietary counseling and surveillance8. Need for vaccination9. Mild depressionKevinley was seen today for 13 year well [...] fluticasone (FLONASE) 50 MCG/ACT nasal spray; 1 [place] by Each Nare routedailyExercise counselingEncounter for dietary [...] the patient's vision.Patient is being seen by rubber cutter and shape carver or engineering consultant.Hyperlipide billy Concerns:Negative Hyperlipidemia Screen Concerns: no parent or grandparent with [place] anginaperipheral or cerebrovascular disease <55 years and [...] height 159.4 cm, weight (!)99 kg. Normal [facility] Culture, urine Bacteria identified Cx Nom (U) Positive [facility] Work Phone: Vital Signs Date Time Vital Sign Value Performing Clinician Facility 07-27-2024 04:39-0500 Body temperature 96.98 [degF] [facility] [employer] [facility] 07-27-2024 04:39-0500 Diastolic Blood Pressure Non-Invasive 79 mm[Hg] ANDREA [facility] [employer] [facility] 07-27-2024 04:39-0500 Heart rate 109 /min [facility] [employer] [facility] 07-27-2024 04:39-0500 Respiratory rate 18 /min [facility] Alexis [employer] [facility] 07-27-2024 04:39-0500 Systolic Blood Pressure Non-Invasive 144 mm[Hg] [facility] Alexis [employer] [facility] 07-10-2024 10:05-0500 Body mass index (BMI) [Ratio] 51.96 kg/m2 Joe Christiansen MD Work Phone: [facility] 07-10-2024 10:05-0500 Body temperature 98.8 [degF] Joe Christiansen MD Work Phone: [facility] 07-10-2024 10:05-0500 Body weight 137.3 kg Joe Christiansen MD Work Phone: [facility] 07-10-2024 10:05-0500 Diastolic blood pressure 93 mm[Hg] Joe Christiansen MD Work Phone: [facility] 07-10-2024 10:05-0500 Heart rate 116 /min Joe Christiansen MD Work Phone: [facility] 07-10-2024 10:05-0500 Respiratory rate 20 /min Joe Christiansen MD Work Phone: [facility] 07-10-2024 10:05-0500 SaO2% (BldA) [Mass fraction] 100 % Joe Christiansen MD Work Phone: [facility] 07-10-2024 10:05-0500 Systolic blood pressure 139 mm[Hg] Joe Christiansen MD Work Phone: [facility] 02-18-2024 23:05-0400 Diastolic blood pressure 72 mm[Hg] Rgio Joiner MD Work Phone: [employer] 02-18-2024 23:05-0400 Heart rate 88 /min Rigo Joiner MD Work Phone: [employer] 02-18-2024 23:05-0400 Respiratory rate 16 /min Rigo Joiner MD Work Phone: [employer] 02-18-2024 23:05-0400 SaO2% (BldA) [Mass fraction] 98 % Rigo Joiner MD Work Phone: [employer] 02-18-2024 23:05-0400 Systolic blood pressure 130 mm[Hg] Rigo Joiner MD Work Phone: [facility] [employer] 02-18-2024 21:07-0400 Body height 160 cm Rigo Joiner MD Work Phone: [facility] [employer] 02-18-2024 21:07-0400 Body mass index (BMI) [Ratio] 49.6 kg/m2 Rigo Joiner MD Work Phone: [facility] [employer] 02-18-2024 21:07-0400 Body temperature 98.2 [degF] Rigo Joiner MD Work Phone: [facility] [employer] 02-18-2024 21:07-0400 Body weight 127.01 kg Rigo Joiner MD Work Phone: [facility] [employer] 02-17-2024 09:01-0400 Blood Pressure Location CLARISSE BRODY MD [facility] 02-17-2024 09:01-0400 Blood Pressure Method CLARISSE BRODY MD [facility] 02-17-2024 09:01-0400 Body temperature 98.24 [degF] CLARISSE BRODY MD [facility] 02-17-2024 09:01-0400 Body weight 129.7 kg CLARISSE BRODY MD [facility] 02-17-2024 09:01-0400 Diastolic Blood Pressure Non-Invasive 71 mm[Hg] CLARISSE BRODY MD [facility] 02-17-2024 09:01-0400 Heart rate 74 /min CLARISSE BRODY MD [facility] 02-17-2024 09:01-0400 Respiratory rate 18 /min CLARISSE BRODY MD [facility] 02-17-2024 09:01-0400 Systolic Blood Pressure Non-Invasive 124 mm[Hg] CLARISSE BRODY MD [facility] 02-17-2024 07:27-0400 Body mass index (BMI) [Ratio] 49.31 kg/m2 Skinny Moore INSERTER [employer]OMOTION[employer] ITEM.ELECTRICIAN JOURNEYMAN WIREMAN Work Phone: [facility] 02-17-2024 07:27-0400 Body temperature 98.6 [degF] Skinny Moore INSERTER [employer]OMOTION[employer]EM.ELECTRICIAN JOURNEYMAN WIREMAN Work Phone: [facility] 02-17-2024 07:27-0400 Body weight 130.3 kg Skinny Moore [employer]ERTER PROMOTION[employer]EM.ELECTRICIAN JOURNEYMAN WIREMAN Work Phone: [facility] 02-17-2024 07:27-0400 Diastolic blood pressure 82 mm[Hg] Skinny Moore INSERTER PROMOTION[employer]EM.ELECTRICIAN JOURNEYMAN WIREMAN Work Phone: [facility] 02-17-2024 07:27-0400 Heart rate 104 /min Skinny Moore INSERTER PROMOTIONAL ITEM.ELECTRICIAN JOURNEYMAN WIREMAN Work Phone: [facility] 02-17-2024 07:27-0400 Respiratory rate 16 /min Skinny Moore INSERTER PROMOTIONAL ITEM.ELECTRICIAN JOURNEYMAN WIREMAN Work Phone: [facility] 02-17-2024 07:27-0400 SaO2% (BldA) [Mass fraction] 99 % Skinny Moore INSERTER PROMOTIONAL ITEM.ELECTRICIAN JOURNEYMAN WIREMAN Work Phone: [facility] 02-17-2024 07:27-0400 Systolic blood pressure 128 mm[Hg] Skinny Moore INSERTER PROMOTIONAL [employer]EM.ELECTRICIAN JOURNEYMAN WIREMAN Work Phone: [facility] 09-02-2023 16:54-0400 Body temperature 98.6 [degF] Siva Herndon INSERTER PROMOTIONAL [employer]EM.ELECTRICIAN JOURNEYMAN WIREMAN Work Phone: [facility] 09-02-2023 16:54-0400 Body weight 126.8 kg Siva Herndon INSERTER PROMOTIONAL ITEM.ELECTRICIAN JOURNEYMAN WIREMAN Work Phone: [facility] 09-02-2023 16:54-0400 Diastolic blood pressure 98 mm[Hg] Siva Herndon INSERTER PROMOTIONAL ITEM.ELECTRICIAN JOURNEYMAN WIREMAN Work Phone: [facility] 09-02-2023 16:54-0400 Heart rate 100 /min Siva Herndon INSERTER PROMOTIONAL ITEM.ELECTRICIAN JOURNEYMAN WIREMAN Work Phone: [facility] 09-02-2023 16:54-0400 Respiratory rate 21 /min Siva Herndon INSERTER PROMOTIONAL ITEM.ELECTRICIAN JOURNEYMAN WIREMAN Work Phone: [facility] 09-02-2023 16:54-0400 SaO2% (BldA) [Mass fraction] 97 % Siva Herndon INSERTER PROMOTIONAL ITEM.ELECTRICIAN JOURNEYMAN WIREMAN Work Phone: [facility] 09-02-2023 16:54-0400 Systolic blood pressure 124 mm[Hg] Siva Herndon INSERTER PROMOTIONAL ITEM.ELECTRICIAN JOURNEYMAN WIREMAN Work Phone: [facility] 08-26-2023 13:32-0500 Body temperature 99.3 [degF] Krislyn Aberegg PA Work Phone: [facility] 08-26-2023 13:32-0500 Body weight 127.01 kg Krislyn Aberegg PA Work Phone: [facility] 08-26-2023 13:32-0500 Diastolic blood pressure 78 mm[Hg] Krislyn Aberegg PA Work Phone: [facility] 08-26-2023 13:32-0500 Heart rate 86 /min Krislyn Aberegg PA Work Phone: [facility] 08-26-2023 13:32-0500 Respiratory rate 18 /min Krislyn Aberegg PA Work Phone: [facility] 08-26-2023 13:32-0500 SaO2% (BldA) [Mass fraction] 98 % Krislyn Aberegg PA Work Phone: [facility] 08-26-2023 13:32-0500 Systolic blood pressure 142 mm[Hg] Krislyn Aberegg PA Work Phone: [facility] 12-14-2022 13:02-0400 Body height 160 cm Tatiana Nieevs APRN.ELECTRICIAN JOURNEYMAN WIREMAN Work Phone: [facility] 12-14-2022 13:02-0400 Body weight 122.29 kg Tatiana Ezequiel INSERTER PROMOTIONAL ITEM.ELECTRICIAN JOURNEYMAN WIREMAN Work Phone: [facility] 12-14-2022 13:02-0400 Diastolic blood pressure 58 mm[Hg] Tatiana Nieves INSERTER PROMOTIONAL ITEM.ELECTRICIAN JOURNEYMAN WIREMAN Work Phone: [facility] 12-14-2022 13:02-0400 Heart rate 79 /min Tatiana Nieves INSERTER PROMOTIONAL ITEM.ELECTRICIAN JOURNEYMAN WIREMAN Work Phone: [facility] 12-14-2022 13:02-0400 Systolic blood pressure 107 mm[Hg] Tatiana Nieves INSERTER PROMOTIONAL ITEM.ELECTRICIAN JOURNEYMAN WIREMAN Work Phone: [facility] 07-09-2022 03:11-0500 Diastolic blood pressure 75 mm[Hg] [facility] Work Phone: 07-09-2022 03:11-0500 Heart rate 65 /min [facility] Work Phone: 07-09-2022 03:11-0500 Respiratory rate 18 /min [facility] Work Phone: 07-09-2022 03:11-0500 SaO2% (BldA) [Mass fraction] 100 % [facility] Work Phone: 07-09-2022 03:11-0500 Systolic blood pressure 122 mm[Hg] [facility] Work Phone: 07-09-2022 00:22-0500 Body height 160.02 cm [facility] Work Phone: 07-09-2022 00:22-0500 Body mass index (BMI) [Percentile] Per age and sex 99.1 % [facility] Work Phone: 07-09-2022 00:22-0500 Body mass index (BMI) [Ratio] 46 kg/m2 [facility] Work Phone: 07-09-2022 00:22-0500 Body temperature 96.5 [degF] [facility] Work Phone: 07-09-2022 00:22-0500 Body weight 117.8 kg [facility] Work Phone: 06-14-2022 10:15-0500 Body height 160 cm Juan Gates MD Work Phone: [facility] 06-14-2022 10:15-0500 Body weight 113.4 kg Juan Gates MD Work Phone: [facility] 05-14-2022 16:23-0500 Body temperature 97.81 [degF] Beth Denbow PA-C Work Phone: [facility] 05-14-2022 16:23-0500 Body weight 114.85 kg Beth Denbow PA-C Work Phone: [facility] 05-14-2022 16:23-0500 Diastolic blood pressure 64 mm[Hg] Beth Denbow PA-C Work Phone: [facility] 05-14-2022 16:23-0500 Heart rate 91 /min Beth Denbow PA-C Work Phone: [facility] 05-14-2022 16:23-0500 Respiratory rate 18 /min Beth Denbow PA-C Work Phone: [facility] 05-14-2022 16:23-0500 SaO2% (BldA) [Mass fraction] 99 % Beth Denbow PA-C Work Phone: [facility] 05-14-2022 16:23-0500 Systolic blood pressure 106 mm[Hg] Beth Denbow PA-C Work Phone: [facility] 05-07-2022 23:14-0500 Body height 160.02 cm [facility] Work Phone: 05-07-2022 23:14-0500 Body mass index (BMI) [Percentile] Per age and sex 98.9 % [facility] Work Phone: 05-07-2022 23:14-0500 Body mass index (BMI) [Ratio] 44 kg/m2 [facility] Work Phone: 05-07-2022 23:14-0500 Body temperature 97 [degF] [facility] Work Phone: 05-07-2022 23:14-0500 Body weight 112.7 kg [facility] Work Phone: 05-07-2022 23:14-0500 Diastolic blood pressure 88 mm[Hg] [facility] Work Phone: 05-07-2022 23:14-0500 Heart rate 106 /min [facility] Work Phone: 05-07-2022 23:14-0500 Respiratory rate 20 /min [facility] Work Phone: 05-07-2022 23:14-0500 SaO2% (BldA) [Mass fraction] 100 % [facility] Work Phone: 05-07-2022 23:14-0500 Systolic blood pressure 144 mm[Hg] [facility] Work Phone: 04-09-2022 05:58-0400 Diastolic blood pressure 75 mm[Hg] [facility] Work Phone: 04-09-2022 05:58-0400 Heart rate 89 /min [facility] Work Phone: 04-09-2022 05:58-0400 Respiratory rate 18 /min [facility] Work Phone: 04-09-2022 05:58-0400 SaO2% (BldA) [Mass fraction] 100 % [facility] Work Phone: 04-09-2022 05:58-0400 Systolic blood pressure 122 mm[Hg] [facility] Work Phone: 04-09-2022 04:20-0400 Body mass index (BMI) [Percentile] Per age and sex 98.9 % [facility] Work Phone: 04-09-2022 04:20-0400 Body mass index (BMI) [Ratio] 43.7 kg/m2 [facility] Work Phone: 04-09-2022 04:20-0400 Body temperature 98.5 [degF] [facility] Work Phone: 04-09-2022 04:20-0400 Body weight 111.9 kg [facility] Work Phone: 12-17-2021 03:13-0400 Diastolic blood pressure 90 mm[Hg] Dr. Rukhsana Luz Work Phone: [facility] Work Phone: 12-17-2021 03:13-0400 Heart rate 111 /min Dr. Rukhsana Luz Work Phone: [facility] Work Phone: 12-17-2021 03:13-0400 Respiratory rate 18 /min Dr. Rukhsana Luz Work Phone: [facility] Work Phone: 12-17-2021 03:13-0400 Systolic blood pressure 138 mm[Hg] Dr. Rukhsana Luz Work Phone: [facility] Work Phone: 12-17-2021 02:47-0400 Body height 160.[address] Rukhsana Luz Work Phone: [facility] Work Phone: 12-17-2021 02:47-0400 Body mass index (BMI) [Percentile] Per age and sex 98.7 % Dr. Rukhsana Luz Work Phone: [facility] Work Phone: 12-17-2021 02:47-0400 Body mass index (BMI) [Ratio] 41.1 kg/m2 Dr. Rukhsana Luz Work Phone: [facility] Work Phone: 12-17-2021 02:47-0400 Body temperature 99 [degF] Dr. Rukhsana Luz Work Phone: [facility] Work Phone: 12-17-2021 02:47-0400 Body weight 105.[address] Rukhsana Luz Work Phone: [facility] Work Phone: 12-17-2021 02:47-0400 SaO2% (BldA) [Mass fraction] 97 % Dr. Rukhsana Luz Work Phone: [facility] Work Phone: 12-12-2021 14:11-0400 Respiratory rate 18 /min Dr. Rukhsana Luz Work Phone: [facility] Work Phone: 12-12-2021 13:31-0400 Diastolic blood pressure 60 mm[Hg] Dr. Rukhsana Luz Work Phone: [facility] Work Phone: 12-12-2021 13:31-0400 Heart rate 82 /min Dr. Rukhsana Luz Work Phone: [facility] Work Phone: 12-12-2021 13:31-0400 Respiratory rate 16 /min Dr. Rukhsana Luz Work Phone: [facility] Work Phone: 12-12-2021 13:31-0400 SaO2% (BldA) [Mass fraction] 98 % Dr. Rukhsana Luz Work Phone: [facility] Work Phone: 12-12-2021 13:31-0400 Systolic blood pressure 119 mm[Hg] Dr. Rukhsana Luz Work Phone: [facility] Work Phone: 12-12-2021 10:35-0400 Body height 160.[address] Rukhsana Luz Work Phone: [facility] Work Phone: 12-12-2021 10:35-0400 Body mass index (BMI) [Percentile] Per age and sex 98.7 % Dr. Rukhsana Luz Work Phone: [facility] Work Phone: 12-12-2021 10:35-0400 Body mass index (BMI) [Ratio] 40.4 kg/m2 Dr. Rukhsana Luz Work Phone: [facility] Work Phone: 12-12-2021 10:35-0400 Body temperature 99 [degF] Dr. Rukhsana Luz Work Phone: [facility] Work Phone: 12-12-2021 10:35-0400 Body weight 103.[address] Rukhsana Luz Work Phone: [facility] Work Phone: 10-27-2021 09:52-0400 Body mass index (BMI) [Percentile] Per age and sex 98.7 % Dr. Rukhsana Luz Work Phone: [facility] Work Phone: 10-27-2021 09:52-0400 Body mass index (BMI) [Ratio] 40.6 kg/m2 Dr. Rukhsana Luz Work Phone: [facility] Work Phone: 10-27-2021 09:52-0400 Body temperature 97.2 [degF] Dr. Rukhsana Luz Work Phone: [facility] Work Phone: 10-27-2021 09:52-0400 Body weight 104.[address] Rukhsana Luz Work Phone: [facility] Work Phone: 10-27-2021 09:52-0400 Diastolic blood pressure 84 mm[Hg] Dr. Rukhsana Luz Work Phone: [facility] Work Phone: 10-27-2021 09:52-0400 Heart rate 81 /min Dr. Rukhsana Luz Work Phone: [facility] Work Phone: 10-27-2021 09:52-0400 Respiratory rate 17 /min Dr. Rukhsana Luz Work Phone: [facility] Work Phone: 10-27-2021 09:52-0400 SaO2% (BldA) [Mass fraction] 99 % Dr. Rukhsana Luz Work Phone: [facility] Work Phone: 10-27-2021 09:52-0400 Systolic blood pressure 168 mm[Hg] Dr. Rukhsana Luz Work Phone: [facility] Work Phone: 10-01-2021 03:09-0400 Diastolic blood pressure 87 mm[Hg] [facility] Work Phone: 10-01-2021 03:09-0400 Heart rate 79 /min [facility] Work Phone: 10-01-2021 03:09-0400 Respiratory rate 16 /min [facility] Work Phone: 10-01-2021 03:09-0400 SaO2% (BldA) [Mass fraction] 98 % [facility] Work Phone: 10-01-2021 03:09-0400 Systolic blood pressure 124 mm[Hg] [facility] Work Phone: 10-01-2021 01:18-0400 Body height 160.02 cm [facility] Work Phone: 10-01-2021 01:18-0400 Body mass index (BMI) [Percentile] Per age and sex 98.6 % Dr. Rukhsana Luz Work Phone: [facility] Work Phone: 10-01-2021 01:18-0400 Body mass index (BMI) [Ratio] 39.5 kg/m2 [facility] Work Phone: 10-01-2021 01:18-0400 Body temperature 98.4 [degF] [facility] Work Phone: 10-01-2021 01:18-0400 Body weight 101.2 kg [facility] Work Phone: Encounters Encounter Date Encounter Type Care Provider Facility Start: 12-02-2024 ambulatory Nikki Olsen VSC Fa cility:[facility] Start: 11-30-2024 End: 11-30-2024 ambulatory Nikki Olsen VSC Facility:[facility] Start: 11-27-2024 End: 11-27-2024 ambulatory Nikki Olsen VSC Facility:[facility] Start: 11-04-2024 ambulatory Nikki Olsen VSC Fa cility:[facility] Start: 10-28-2024 ambulatory Nikki Olsen VS Fa cility:[facility] Start: 10-05-2024 End: 10-05-2024 ambulatory Nikki Olsen VSC Facility:[facility] Start: 09-30-2024 ambulatory Nikki Olsen VSC Fa cility:[facility] Start: 09-30-2024 End: 09-30-2024 ambulatory Nikki Olsen VSC Facility:[facility] Start: 09-14-2024 End: 09-14-2024 Emergency department patient visit Nikki O[facility] Facility:[facility] Start: 09-12-2024 End: 09-12-2024 ambulatory Nikki Olsen VSC Facility:[facility] Start: 09-03-2024 End: 09-03-2024 ambulatory Nikki Olsen VSC Facility:[facility] Start: 08-05-2024 End: 08-05-2024 ambulatory Nikki Olsen C Facility:[facility] Start: 07-29-2024 End: 07-29-2024 ambulatory ANDREA CARTER DO Facility[facility] Start: 07-29-2024 End: 07-29-2024 Patient encounter procedure ANDREA CARTER DO [facility] Start: 07-27-2024 End: 07-27-2024 Emergency department patient visit ANDREA CARTER DO [facility] Start: 07-10-2024 End: 07-10-2024 Emergency department patient visit Nikki [facility] Facility:[facility] Start: 07-10-2024 End: 07-10-2024 ambulatory [facility] Facility:[facility] Start: 07-10-2024 End: 07-10-2024 Office outpatient visit 15 minutes Joe Christiansen MD Work Phone: [facility] Comment on above: Bilateral leg edema (Primary Dx); Tachycardia; SOB (shortness of breath); Nausea Start: 07-08[facility] Fac ility[facility] Start: 07-08-2024 End: 07-08-2024 ambulatory Mercedes Cox Facility:[facility] Start: 06-29-2024 End: 06-29-2024 ambulatory Cristo Cox [facility] Facility:[facility] Start: 06-24-2024 End: 06-24-2024 Emergency department patient visit Tom Villar Facility:[facility] Start: 06-23-2024 End: 06-23-2024 ambulatory Christian ANDERSON Facility[facility] Start: 06-09-2024 End: 06-[facility] Start: 05-02-2024 End: 05-03-2024 Emergency department patient visit CARLOTA RODRIGUEZ [facility] Start: 03-30-2024 End: 03-30-2024 Patient encounter procedure Bhavani ANDERSON Work Phone: [facility] Comment on above: Procedure not azeem d out (Primary Dx) Start: 03-30-2024 End: 03-30-2024 ambulatory [facility] Facility:[facility] Start: 03-08-2024 End: 03-08-2024 Emergency department patient visit Nikki Raúl [facility] Facility:[facility] Start: 02-19-2024 ambulatory Shan Brody Facility:[facility] Start: 02-19-2024 End: 02-19-2024 [facility] Start: 02-18-2024 End: 02-18-2024 Subsequent hospital visit by physician [facility] Exam Room [address] [facility] [address] Comment on above: Arrived Start: 02-18-2024 End: 02-18-2024 Emergency department patient visit Rigo Joiner MD Work Phone: [facility] Comment on above: Constipation, unspec ified constipation type (Primary Dx) Start: 02-17-2024 End: 02-17-2024 Emergency department patient visit CLARISSE BRODY MD [facility] Start: 02-17-2024 End: 02-17-2024 ambulatory [facility] Facility:[facility] Start: 02-17-2024 End: 02-17-2024 Patient encounter procedure Skinny Moore APRN.ELECTRICIAN JOURNEYMAN WIREMAN Work Phone: [facility] Comment on above: Urinary frequency (P rimary Dx) Start: 01-23-2024 End: 01-23-2024 ambulatory [facility] Facility:[facility] Start: 01-23-2024 End: 01-23-2024 ambulatory [facility] Facility:[facility] Start: 01-17-2024 ambulatory [facility] Fa cility:[facility] Start: 12-30-2023 End: 12-30-2023 Emergency department patient visit [facility] Facility:[facility] Start: 09-03-2023 Telephone encounter Skinny calvillo APRN.ELECTRICIAN JOURNEYMAN WIREMAN Work Phone: [facility] Comment on above: Results Start: 09-02-2023 End: 09-02-2023 Office outpatient visit 15 minutes Siva Herndon APRN.ELECTRICIAN JOURNEYMAN WIREMAN Work Phone: [facility] Comment on above: Viral illness (Prima ry Dx) Start: 08-30-2023 End: 08-31-2023 Emergency department patient visit [facility] Facility:[facility] Start: 08-29-2023 Emergency department patient visit [facility] Facility:[facility] Start: 08-26-2023 End: 08-26-2023 Patient encounter procedure Bhavani ANDERSON Work Phone: [facility] Comment on above: Headache, unspecifie d headache type (Primary Dx) Start: 12-14-2022 End: 12-14-2022 Patient encounter procedure Tatiana Nieves APRN.ELECTRICIAN JOURNEYMAN WIREMAN Work Phone: Rheumatology Comment on above: Fibromyalgia (Primar y Dx) Start: 07-09-2022 End: 07-09-2022 Emergency department patient visit [facility] Start: 06-14-2022 End: 06-14-2022 Patient encounter procedure Juan Gates MD Work Phone: Orthopaedics Comment on above: 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) Start: 05-24-2022 ambulatory Pcp ([facility] Start: 05-14-2022 End: 05-14-2022 Subsequent hospital visit by physician [facility] Work Phone: Radiology Comment on above: Right wrist pain [M2 5.531] Start: 05-14-2022 End: 05-14-2022 Patient encounter procedure Beth Aguirre PA-C Work Phone: [facility] Comment on above: Right wrist pain (Pr imary Dx) Start: 05-07-2022 End: 05-08-2022 Emergency department patient visit [facility] Start: 04-09-2022 End: 04-09-2022 Emergency department patient visit [facility] Start: 12-17-2021 End: 12-17-2021 Emergency department patient visit Dr. Rukhsana Luz Work Phone: [facility] Start: 12-12-2021 End: 12-12-2021 Emergency department patient visit Dr. Rukhsana Luz Work Phone: [facility] Start: 10-27-2021 End: 10-27-[address] Rukhsana Luz Work Phone: [facility] Start: 10-11-2021 End: 10-11-2021 Patient encounter procedure [facility] Start: 10-01-2021 End: 10-01-2021 Emergency department patient visit [facility] Start: 03-17-2018 End: 03-17-2018 Patient encounter DEANN MANU[facility] Procedures Date Procedure Procedure Detail Performing Clinician [...] et rgnt auto w/o microscopy Skinny Moore APRN.CNP Work Phone: Start: 05-14-2022 Radex wrist complete [...] or older (1 - 1-dose 60+ series) [facility] [employer] Start: 2053 Zoster Vaccines (1 of 2) Zoste r Vaccines (1 of 2) [facility] Start: 03-18-2025 Urine microalbumin profile DTaP,Tdap,Td Vaccine (7 - Td or Tdap) [facility] Start: 02-23-2024 Covid-19 Vaccine ( season) Covid-19 Vaccine ( season) [facility] Start: 02-23-2024 Influenza vaccination Influenza Vacc ine (#1) [facility] Start: 01-23-2024 Screening for malign ant neoplasm of cervix [facility] Start: 09-02-2023 End: 09-16-2023 COVID & INFLUENZA A/B & RSV NAAT, ROUTINE COVID & INFLUENZA A/B & RSV NAAT, ROUTINE Microbiology Routine Viral illness Expected: 09/02/2023, Expires: 09/16/2023 [facility] Work Phone: Comment on above: Expected: 09/02/2023 , Expires: 09/16/2023 Start: 06-24-2023 [facility] Start: 02-22-2023 COVID-19 Vaccine ( season) COVID-19 Vaccine ( season) [facility] Start: 02-22-2023 Covid-19 Vaccine ( season) Covid-19 Vaccine () [facility] Start: 02-22-2023 Influenza vaccination [facility] Start: 12-14-2022 End: 02-13-2023 Cyclic citrullinated peptide IgG Ab [Units/volume] in Serum or Plasma [facility] Work Phone: Comment on above: Expected: 12/14/2022 , Expires: 02/13/2023 Start: 12-14-2022 End: 02-13-2023 Erythrocyte sedimentation rate [facility] Work Phone: Comment on above: Expected: 12/14/2022 , Expires: 02/13/2023 Start: 12-14-2022 End: 02-13-2023 Rheumatoid factor [Units/volume] in Serum or Plasma [facility] Work Phone: Comment on above: Expected: 12/14/2022 , Expires: 02/13/2023 Start: 06-24-2022 DEPRESSION ASSESSMENT DEPRESSION ASS ESSMENT [facility] Start: 02-22-2022 Influenza vaccination INFLUENZA (#1) [facility] Start: 2022 DTaP/Tdap/Td Vaccine s (1 - Tdap) DTaP/Tdap/Td Vaccines (1 - Tdap) [facility] Start: 2022 Hepatitis B Vaccines (1 of 3 - 19+ 3-dose series) Hepatitis B Vaccines (1 of 3 - 19+ 3-dose series) [facility] Start: 2022 Urine microalbumin profile DTAP,TDAP,TD (1 - Tdap) [facility] Start: 12-17-2021 [facility] Work Phone: Start: 12-17-2021 Patient discharge [facility] Work Phone: Start: 08-17-2021 COVID-19 VACCINE (4 - Booster for Pfizer series) COVID-19 VACCINE (4 - Booster for Pfizer series) [facility] Start: 06-24-2021 DEPRESSION ASSESSMENT DEPRESSION ASS ESSMENT [facility] Start: 2021 Anxiety Screening Anxiety Screening [facility] Start: 2021 CHLAMYDIA SCREENING (18-24) CHLAMYDIA SCREENING (18-24) [facility] Start: 2021 Depression Screening Depression Scre ening [facility] Start: 2021 GC (GONORRHEA) SCREE DURGA (18-24) GC (GONORRHEA) SCREENING (18-24) [facility] Start: 2021 HEPATITIS C SCREENING HEPATITIS C [facility] Start: 2021 Hepatitis C screening Hepatitis C [facility] Start: 2021 HIV SCREENING HIV SCREENING [facility] Start: 2021 HIV screening HIV Screening [facility] Start: 2021 Screening for Chlamy pravin trachomatis Chlamydia Screening (18-24) [facility] Start: 08-07-2020 HPV Vaccine (3 - 3-d ose series) HPV Vaccine (3 - 3-dose series) [facility] Start: 2019 Meningococcal B Vacc ine: Consider Based On Risk (1 of 2 - Patient Seeks Protection) Meningococcal B Vaccine: Consider Based On Risk (1 of 2 - Patient Seeks Protection) [facility] Start: 2018 HPV Vaccines (1 - 3- dose series) HPV Vaccines (1 - 3-dose series) [facility] Start: 2017 PEDS TO ADULT TRANSI TION ANNUAL ASSESSMENT PEDS TO ADULT TRANSITION ANNUAL ASSESSMENT [facility] Start: 01-23-2016 Varicella vaccination Varicell a Vaccines (1 of 2 - 13+ 2-dose series) [facility] Start: 2015 Depression Screening Depression Scre ening [facility] Start: 2015 PEDS TO ADULT TRANSI TION INITIAL DISCUSSION PEDS TO ADULT TRANSITION INITIAL DISCUSSION [facility] Start: 2014 HPV VACCINE (1 - 2-d ose series) HPV VACCINE (1 - 2-dose series) [facility] Start: 2013 MENINGOCOCCAL B: Consider based on risk (1 of 2 - Risk Bexsero 2-dose series) MENINGOCOCCAL B: Consider based on risk (1 of 2 - Risk Bexsero 2-dose series) [facility] Start: 01-23-2012 HPV VACCINE (1 - 2-d ose series) HPV VACCINE (1 - 2-dose series) [facility] Start: 01-23-2004 MMR Vaccines (1 of 1 - Standard series) MMR Vaccines (1 of 1 - Standard series) [facility] Start: 2003 HEPATITIS B (1 of 3 - 3-dose series) HEPATITIS B (1 of 3 - 3-dose series) [facility] Start: 2003 HIV screening HIV Screening [facility] ernesto Bacteria identified in Urine by Culture URINE CULTURE Microbiology Routine Urinary frequency Ordered: 02/17/2024 [facility] Work Phone: Comment on above: Ordered: 02/17/2024 Patient Education [facility] Work Phone: Patient referral [facility] Immunization Date Immunization Notes Care Provider Fa cili 04-06-2020 hepatitis A vaccine, pediatric/adolescent dosage, 2 dose schedule Joe Christiansen MD Work Phone: [facility] 04-06-2020 Human Papillomavirus 9-valent vaccine Joe Christiansen MD Work Phone: [facility] 04-06-2020 influenza, injectabl e, quadrivalent, preservative free Joe Christiansen MD Work Phone: [facility] 04-06-2020 meningococcal polysaccharide (groups A, C, Y and W-135) diphtheria toxoid conjugate vaccine (MCV4P) Joe Christiansen MD Work Phone: [facility] 04-06-2020 influenza virus vacc ine, unspecified formulation Bhavani ANDERSON Work Phone: [facility] 03-30-2020 meningococcal oligosaccharide (groups A, C, Y and W-135) diphtheria toxoid conjugate vaccine (MCV4O) Joe Christiansen MD Work Phone: [facility] 03-17-2018 hepatitis A vaccine, pediatric/adolescent dosage, 2 dose schedule Joe Christiansen MD Work Phone: [facility] 03-17-2018 Human Papillomavirus 9-valent vaccine Joe Christiansen MD Work Phone: [facility] 03-17-2018 meningococcal polysaccharide (groups A, C, Y and W-135) diphtheria toxoid conjugate vaccine (MCV4P) Joe Christiansen MD Work Phone: [facility] 03-18-2015 tetanus toxoid, redu dhruv diphtheria toxoid, and acellular pertussis vaccine, adsorbed Joe Christiansen MD Work Phone: [facility] 03-17-2015 meningococcal oligosaccharide (groups A, C, Y and W-135) diphtheria toxoid conjugate vaccine (MCV4O) Joe Christiansen MD Work Phone: [facility] 03-16-2008 diphtheria, tetanus toxoids and acellular pertussis vaccine Joe Christiansen MD Work Phone: [facility] 03-16-2008 measles, mumps and r ubella virus vaccine Joe Christiansen MD Work Phone: [facility] 03-16-2008 poliovirus vaccine, inactivated Joe Christiansen MD Work Phone: [facility] 03-16-2008 varicella virus vaccine Ashley Christiansen MD Work Phone: [facility] 11-28-2004 diphtheria, tetanus toxoids and acellular pertussis vaccine Joe Christiansen MD Work Phone: [facility] 11-28-2004 pneumococcal conjuga te vaccine, 7 valent Joe Christiansen MD Work Phone: [facility] 11-28-2004 poliovirus vaccine, inactivated Joe Christiansen MD Work Phone: [facility] 11-28-2004 varicella virus vaccine Ashley Christiansen MD Work Phone: [facility] 04-13-2004 haemophilus influenz ae type b conjugate and Hepatitis B vaccine Joe Christiansen MD Work Phone: [facility] 04-13-2004 influenza virus vacc ine, whole virus Joe Christiansen MD Work Phone: [facility] 04-13-2004 measles, mumps and r ubella virus vaccine Joe Christiansen MD Work Phone: [facility] 04-13-2004 pneumococcal conjuga te vaccine, 7 valent Joe Christiansen MD Work Phone: [facility] 2003 diphtheria, tetanus toxoids and acellular pertussis vaccine Joe Christiansen MD Work Phone: [facility] 2003 haemophilus influenz ae type b vaccine, PRP-T conjugate Joe Christiansen MD Work Phone: [facility] 2003 diphtheria, tetanus toxoids and acellular pertussis vaccine Joe Christiansen MD Work Phone: [facility] 2003 haemophilus influenz ae type b vaccine, PRP-T conjugate Joe Christiansen MD Work Phone: [facility] 2003 pneumococcal conjuga te vaccine, 7 valent Joe Christiansen MD Work Phone: [facility] 2003 poliovirus vaccine, inactivated Joe Christiansen MD Work Phone: [facility] 2003 diphtheria, tetanus toxoids and acellular pertussis vaccine Joe Christiansen MD Work Phone: [facility] 2003 haemophilus influenz ae type b conjugate and Hepatitis B vaccine Joe Christiansen MD Work Phone: [facility] 2003 pneumococcal conjuga te vaccine, 7 valent Joe Christiansen MD Work Phone: [facility] 2003 poliovirus vaccine, inactivated Joe Christiansen MD Work Phone: [facility] 2003 hepatitis B vaccine, pediatric or pediatric/adolescent dosage Joe Christiansen MD Work Phone: [facility] Payers Date Payer Category Payer Unknown [id number] 2024 Unknown [id number] 2023 Self-pay [id number] 2023 Unknown [id number] 2022 Medicaid [id number] 2022 Medicaid [id number] 2013 Unknown [id number] 2003 Unknown [id number] 2.16.8 40.1.663518.3.579.2.627 2003 Unknown [id number] 2.16.8 40.1.420681.3.579.2.651 2003 Unknown [id number] 2.16.8 40.1.653343.3.579.2.627 2003 Unknown [id number] 2.16.8 40.1.952010.3.579.2.627 Unknown [id number] 2.16.8 40.1.191738.3.579.2.462 Unknown [id number] 2.16.8 40.1.028849.3.579.2.462 Unknown [id number] 2.16.8 40.1.933345.3.579.2.462 Unknown [id number] 2.16.8 40.1.846915.3.579.2.462 Unknown [id number] 2.16.8 40.1.727989.3.579.2.462 Unknown [id number] 2.16.8 40.1.669158.3.579.2.462 Unknown [id number] 2.16.8 40.1.128896.3.579.2.462 Unknown [id number] 2.16.8 40.1.651955.3.579.2.462 Unknown [id number] 2.16.8 40.1.105988.3.579.2.462 Unknown [id number] 2.16.8 40.1.243049.3.579.2.462 Unknown [id number] 2.16.8 40.1.170765.3.579.2.462 Unknown [id number] 2.16.8 40.1.363031.3.579.2.462 Unknown [id number] 2.16.8 40.1.977748.3.579.2.462 Unknown [id number] 2.16.8 40.1.318057.3.579.2.462 Unknown [id number] 2.16.8 40.1.002683.3.579.2.462 Unknown [id number] 2.16.8 40.1.951842.3.579.2.462 Unknown [id number] 2.16.8 40.1.558605.3.579.2.462 Unknown [id number] 2.16.8 40.1.713482.3.579.2.462 Unknown [id number] 2.16.8 40.1.457756.3.579.2.462 Unknown [id number] 2.16.8 40.1.134389.3.579.2.462 Unknown [id number] 2.16.8 40.1.032831.3.579.2.462 Unknown [id number] 2.16.8 40.1.336987.3.579.2.462 Unknown [id number] 2.16.8 40.1.320662.3.579.2.462 Unknown [id number] 2.16.8 40.1.330364.3.579.2.462 Unknown [id number] 2.16.8 40.1.323031.3.579.2.462 Unknown [id number] 2.16.8 40.1.593133.3.579.2.462 Unknown [id number] 2.16.8 40.1.842933.3.579.2.462 Unknown [id number] 2.16.8 40.1.602273.3.579.2.462 Social History Date Type Detail Facility [facility] Work Phone: Start: 10-01-2021 End: 07-09-2022 Tobacco smoking status NHIS Unknown if ever smoked [facility] Work Phone: Start: 2005 Sex Assigned At Female A [facility] Start: 02-28-2022 Tobacco smoking stat us SCIS Never smoked tobacco [facility] Start: 02-28-2022 Tobacco use and exposure Smokeless tobacco non-user [facility] Start: 05-14-2022 End: 07-10-2024 Alcohol intake Lifetime non-drinker (finding) [facility] Start: 2005 Sex Assigned At Not on file [facility] Start: 08-26-2023 End: 08-30-2023 History of Social function [facility] Start: 08-26-2023 End: 08-30-2023 Tobacco use panel [facility] Adult Depression Screening Assessment 2 [facility] Tobacco smoking status [facility] Start: 02-17-2024 Sex Female (finding) [facility] Functional Status Date Assessment Result Facility 07-27-2024 Functional Status ID band on, Allergy Band on, Call device within reach, Bed in low position, Wheels locked, Upper/Half-Length side-rails up, Phone within reach, personal items within reach, Safety level maintained [facility] 02-17-2024 Functional Status ID band on, Allergy Band on, Call device within reach, Bed in low position, Wheels locked, Upper/Half-Length side-rails up, Safety level maintained [facility] Mental Status Date Assessment Result Facility 07-27-2024 Mental Status Oriented x 4 [facility] 02-17-2024 Mental Status Oriented x 4 [facility] 05-15-2022 Cognitive function Level Of Cons ciousness Awake;Alert;Appropriate;Follow s Commands [facility] Work Phone: 12-17-2021 Cognitive function Level Of Cons ciousness Awake;Alert;Appropriate [facility] Work Phone: Clinical Notes 05-14-2022 to 07-29-2024 Note Date & Type Note Facility 07-29-2024 Note Exam Date Time Procedure Performing Provider Status 07/29/24 1:12 PM VL Venous US/Doppler One Leg (for DVT). NEHEMIAS CHURCH MD; Auth (Verified) [facility]02-03-2025 Hospital Discharge instructions Patient Education 07/27/2024 04:48:41 [...] alternate ice and heat. You may use vzod-pzo-ufpnvab pain medicine to control pain, unless another [...] numb, or tingly Pain or swelling increases 8550-3001 [employer]. [address] [place] [address], [place] [address]. All rights reserved. This information is not intended as a substitute for professional medical care. Always follow yourhealthcare professional's instructions. Follow Up Care 07/27/2024 04:25:30 With:NIKKI OLSEN Address: [facility] [place] [address] [phone] When:2-4 days [facility] 02-03-2025 Note Discharge Instructions Thank you for allowing [facility] to assist you with your healthcare needs. The following is importantdischarge information regarding your hospital visit. Diagnosis from Today's Visit Leg pain What to Do Next Instructions from Your Care Team Discharge ED Outpatient Vascular Lab - Ordered -- Test Requested: venous duplex u/s lle, Lower extremity, Left, Test Reason: Pain, Mon-Fri 8am-4:30pm: Call [phone] at 7:30am to schedule a same day appointment for testing. Please be aware there may be a short wait time., Weekend Holiday 8am-6pm:... Post Acute Orders No qualifying data available. You Need to Schedule the Following Appointments Follow Up with NIKKI OLSEN When:Within 2-4 days Where:[address] [place] [phone] Allergies Wellbutrin Medications Please ask your primary [...] alternate ice and heat. You may use byxc-vwn-kddlfws pain medicine to control pain, unless another [...] numb, or tingly Pain or swelling increases 6786-7938 [employer]. [address] [place] [address], [place] [address]. All rights reserved. This information is not intended as a substitute for professional medical care. Always follow yourhealthcare professional's instructions. Additional Information VACCINATE! IT SAVES LIVES! Members of the community who have not yet received the COVID-19 vaccine and would like to receive it can visit one of [facility] vaccine clinics. There are many vaccine clinic locations within the [facility]. For locations and available times, please visit www.gettheshot.coronavirus.[place].gov/. It is important to note that some COVID mobile vaccine clinics are held outdoors and may be canceled in rainy or stormy conditions. To learn more about pediatric vaccinations (ages 5-11), we invite you to visit the [facility] webpage. https://www.[facility].org/pages/5280-Cbzaa-Ejuvmxmklig-Icdnuwlzus-Osjfi-Nln stions.htmlTo learn more about the COVID-19 vaccine, we invite you to visit the CDC website for a list of frequently asked questions. https://www.cdc.gov/coronavirus/2019-ncov/vaccines/faq.html [facility] Patient Portal Access Instructions: Stay connected with your healthcare team and access your personal medical information anytime with the [facility] Patient Portal. If you would like a full copy of your medical records please contact the [facility] Medical Records Department Saturday through Saturday between 8a.m. and 4:30p.m. Please follow the directions below to access the portal: 1.Access the email account you provided upon registration to the hospital.2.Look for an invitation email from [facility].3.Open the email and access the invitation link: Accept Invitation to [facility]4.Fill in the required lizarraga to create your account. Sign into [email or web address] with your username and password that you [...] you will allow to register on the [facility] Patient Portal for access to your information. You can also access the [facility] Patient Portal on the [employer] ana paula. Simply click on Health Records under [place] and then click on the [employer] logo. HOW TO SAFELY DISPOSE OF PRESCRIPTION [...] Call your local pharmacy or go to http://[employer].ESP Systems/5Z2Id2m to find one close to you.3.Make use of household items: Use cat litter or old coffee grounds to dispose medications if other options arenot available. Mix your drugs with these household products, seal them in an airtight container andthrow it into the garbage. Call [facility]: [phone] to be sure your drugs can be [...] been reviewed and explained to me and IKING KILEY understand my current condition and have read and understand these discharge instructions. I have received a written copy of the plan/instructions. If I have questions, I am aware that I should contact my d anaor. Patient/Regular Senior Care Provider Signature: Date/Time: Relationship to Patient: Witness Name/Signature: Date/Time: [facility] [id number] NoteHNO ID: [id number] Author: JOE CHRISTIANSEN MD Service: ? Author [...] says labs were OK. Primary care at [facility]. PAST MEDICAL HISTORY Diagnosis Date Anxiety [...] declines EMS transfer and will to to [facility] ED. Joe Christiansen, [facility]01-17-2025 History of Present illness Narrative* [...] says labs were OK. Primary care at [facility]. PAST MEDICAL HISTORY Diagnosis Date Anxiety state [...] declines EMS transfer and will to to [facility] ED. Joe Christiansen MD [facility] NoteDischarge Instructions Discharge Summary [address] [address] [id number] 05/02/2024 Patient: ALINA MALIK Sex: Female : 2005 Age: 19y Thank you for visiting [facility]. You have been evaluated today by Carlota [...] 5 days, dispense 10 tablet. Refills0. Pharmacy: [facility] - [address] [place] [address]. ketorolac 10 mg tablet: Take 1 tablet by mouth every eight hours as needed for pain for 5 days, dispense 15 tablet. Refills 0. Pharmacy: [facility] - [address] [place] [address]. Understanding of the discharge instructions verbalized by patient. 1 of 4 Discharge Instructions Follow-up with: Ramona James DNP, [employer], DIGITAL MEDIA ASSOCIATE-C, [facility], Adult [facility] Pediatric, [facility], Phone: [phone], [address] [address]. Follow up in five days even if well. Call for an appointment. Reason for referral: evaluation and treatment. Summary of care provided topatient. You have been given the following additional information: Peripheral Neuropathy Patient Signature Facility Regular Senior Care Provider Date/Time General Instructions with ExitWriter [address] [place] [phone] 05/02/2024 Patient: ALINA MALIK Sex: Female : 2005 Age: 19y Thank you for visiting [facility]. You have been evaluated today by Carlota [...] 5 days, dispense 10 tablet. Refills0. Pharmacy: [facility] - [address] [place] [address]. ketorolac 10 mg tablet: Take 1 tablet by mouth every eight hours as needed for pain for 5 days, dispense 15 tablet. Refills 0. Pharmacy: [facility] - [address] [place] [address]. Understanding of the discharge instructions verbalized by patient. Follow-up with: Ramona James, ROJELIO, [employer], DIGITAL MEDIA ASSOCIATE-C, [facility], Adult and Pediatric, Health system, Phone: [phone], [address] [address]. Follow up in five days even if [...] medicines you take. This includes prescription and dwar-sbb-flnqojw medicines, vitamins, and herbs. Ask if any [...] least once a we (more content not included)...[facility] 03-30-2024 NoteHNO ID: [id number] Author: BHAVANI CROSS PA Service: ? Author Type: Physician Human Resources Operations Manager Type: Progress Notes Filed: 03/30/2024 17:10 Note Text: 19-year-old female presents for shakiness, lightheadedness starting today. Patient was working at the [employer] and she started to feel hot and [...] emergency room. Patient refuses EMS, will take herself.[facility]10-07-2024 History of Present illness Narrative* Bhavani Cross PA - 03/30/2024 5:09 PM EDT 19-year-old female presents for shakiness, lightheadedness starting today. Patient was working at the [employer] and she started to feel hot and [...] EMS, will take herself. [facility] Note. MICRO - Microbiology PROCEDURE: Urine Culture [*1] SOURCE: Urine, Clean Catch BODY SITE: COLLECTED DATE/TIME: 02/17/2024 09:23 EDT RECEIVED DATE/TIME: 02/18/2024 16:22 EDT START DATE/TIME: 02/18/2024 16:22 EDT FREE TEXT SOURCE: FINAL REPORTS Final Report [] Verified Date/Time/Personnel: 02/19/2024 14:35 EDT <10,000 cfu/ml. No Significant growth. Sensitivity not indicated. Performing Locations *1: This test was performed at: [facility], [address] [place] [address], [id number] , [facility], [facility] ([place])02-18-2024 Emergency department Note* Candelaria Gerard RN - 02/18/2024 11:05 PM EDT Pt given discharge instructions and verbalized understanding. Pt is alert and oriented X4. IV removed intact. Pt is ambulatory to the lobby. No concerns at this time. Candelaria Gerard RN 02/18/242305 [id number] Emergency department Note* Candelaria Gerard RN - 02/18/2024 11:05 PM EDT Pt given discharge instructions and verbalized understanding. Pt is alert and oriented X4. IV removed intact. Pt is ambulatory to the lobby. No concerns at this time. Candelaria Gerard RN 02/18/242305 * Candelaria Gerard RN - 02/18/2024 9:[address] Joiner at pt bedside. Candelaria Gerard RN 02/18/243 * Rigo Joiner MD - 02/18/2024 9:00 PM EDT EMERGENCY DEPARTMENT ENCOUNTER Pt Name: Alina Malik Birthdate 2005 Date of evaluation: 02/18/2024 ED Provider: Rigo Joiner MD CHIEF COMPLAINT Chief Complaint Patient presents with Abdominal Pain Pt states she was seen yesterday for same at [facility] and was told she had a [...] Single Social Determinants of Health Received from [employer] Received from [employer] Transportation Received from [employer] Interpersonal Safety Received from [employer] Housing/Utilities SCREENINGS PHYSICAL EXAM ED Triage Vitals [...] Culture. Procedure Abnormality Status --------- ------ Complete Urinalysis[[id number]] Abnormal Final result Please view results for [...] 02/18/242120) I Rigo Joiner MD am the ammonia distiller of record. PROCEDURES: Unless otherwise noted below, [...] Discharge 02/18/2024 10:51:20 PM PATIENT REFERRED TO: [facility] [address] [facility] [phone] As needed DISCHARGE MEDICATIONS: New [...] Emergency Medicine Provider Rigo Joiner MD 02/18/24 3104 documented in this [facility]08-27-2024 Hospital Discharge instructions* Discharge Instructions* Rigo Joiner [...] Care Everywhere. * Constipation Discharge Instructions, Adult (Syriac) documented in this [facility] [id number] Emergency department Note* Candelaria Gerard RN - 02/18/2024 9:[address] Joiner at pt bedside. Candelaria Gerard RN 02/18/242108 [id number] Physician Emergency department Note* Rigo Joiner MD - 02/18/2024 9:00 PM EDT EMERGENCY DEPARTMENT ENCOUNTER Pt Name: Alina Malik Birthdate 2005 Date of evaluation: 02/18/2024 ED Provider: Rigo Joiner MD CHIEF COMPLAINT Chief Complaint Patient presents with Abdominal Pain Pt states she was seen yesterday for same at [facility] and was told she had a [...] Single Social Determinants of Health [facility] [employer] [facility] [facility] Interpersonal Safety Received from [facility] Housing/Utilities SCREENINGS PHYSICAL EXAM ED Triage Vitals [...] Culture. Procedure Abnormality Status --------- ------ Complete Urinalysis[[id number]] Abnormal Final result Please view results for [...] 4 mg (4 mg IntraVENous Given 02/18/242120) Ger Joiner MD am the ammonia distiller of record. PROCEDURES: Unless otherwise noted below, [...] Discharge 02/18/2024 10:51:20 PM PATIENT REFERRED TO: [facility] ED [address] [place] [address] As needed DISCHARGE MEDICATIONS: New Prescriptions [...] Emergency Medicine Provider Rigo Joiner MD 02/18/24 6531 [id number] Evaluation + Plan note Diagnostic Tests Pending * Urine Culture 02/17/24 [facility] 08-26-2024 Hospital Discharge instructions Patient Education 02/17/2024 [...] testing. For more information, contact CDC-INFO at [phone]. When to seek medical advice Call your [...] Testicle pain or swelling of the scrotum 5349-3756 [employer]. [address] [place] [address], [place] [address]. All rights reserved. This information is not intended as a substitute for professional medical care. Always follow yourhealthcare professional's instructions. Follow Up Care 02/17/2024 08:50:59 With:NIKKI OLSEN Address: [address] [place] [phone] Business (1) When:5-7 days Comments:Follow-up as needed if symptoms are not improving.Push fluids.Use Tylenol or Advil for pain and fever as needed.Use antibiotic (Keflex) to treat for presumed UTI.Return to the ED if symptoms worsen. [facility] Marthaelisa Hill 08-26-2024 Note Discharge Instructions Thank you for allowing [facility] to assist you with your healthcare needs. The following is importantdischarge information regarding your hospital visit. What to Do Next Instructions from Your Care Team No qualifying data available. Post Acute Orders No qualifying data available. You Need to Schedule the Following Appointments Follow Up with NIKKI OLSEN When:Within 5-7 days Where:[address] [place] [phone] Business (1) Additional Information: Follow-up as needed [...] may report side effects to FDA at 0-526-OXS-6644. What other drugs will affect cephalexin? Tell your doctor about all your other medicines, especially: metformin; or probenecid. This list is not complete. Other drugs may affect cephalexin, including prescription and gxhp-fhy-kqulerv medicines, vitamins, and herbal products. Not all [...] to ensure that the information provided by [employer]. ('[employer]') is accurate, up-to-date, and complete, but no guarantee is made to that effect. Drug information contained herein may be time sensitive. [employer] information has been compiled for use by healthcare practitioners and consumers in the [place] and therefore [employer] does not warrant that uses outside of the [place] are appropriate, unless specifically indicated otherwise. [employer] drug information does not endorse drugs, diagnose patients or recommend therapy. [employer] drug information isan informational resource designed to [...] effective or appropriate for any given patient. [facility] does not assume any responsibility for any aspect of healthcare administered with the aid of information [facility] provides. The information contained herein is not intended to cover all possible uses, directions, precautions, warnings, drug interactions, allergic reactions, or adverse effects. If you have questions about the drugs you are taking, check with your doctor, nurse or pharmacist. Copyright 9836-4777 [facility]. Version: 05.24. Revision Date: 01/23/2023. Education Materials [...] testing. For more information, contact CDC-INFO at 348-841-2237. When to seek medical advice Call your [...] Testicle pain or swelling of the scrotum 2983-0999 [employer]. [address] [place] [address]. All rights reserved. This information is not intended as a substitute for professional medical care. Always follow yourhealthcare professional's instructions. Additional Information VACCINATE! IT SAVES LIVES! Members of the community who have not yet received the COVID-19 vaccine and would like to receive it can visit one of [facility] vaccine clinics. There are many vaccine clinic locations within the [facility]. For locations and available times, please visit www.gettheshot.coronavirus.[place].gov/. It is important to note that some COVID mobile vaccine clinics are held outdoors and may be canceled in rainy or stormy conditions. To learn more about pediatric vaccinations (ages 5-11), we invite you to visit the [facility] webpage. https://www.[facility].org/pages/5514-Vqjqy-Xanbfhsqfib-Jerdloqfjn-Ducih-Ejk stions.htmlTo learn more about the COVID-19 vaccine, we invite you to visit the CDC website for a list of frequently asked questions. https://www.cdc.gov/coronavirus/2019-ncov/vaccines/faq.html [facility] Patient Portal Access Instructions: Stay connected with your healthcare team and access your personal medical information anytime with the [facility] Patient Portal. If you would like a full copy of your medical records please contact the [facility] Medical Records Department Saturday through Saturday between 8a.m. and 4:30p.m. Please follow the directions below to access the portal: 1.Access the email account you provided upon registration to the [facility].2.Look for an invitation email from [facility].3.Open the email and access the invitation link: Accept Invitation to [facility]4.Fill in the required lizarraga to create your account. Sign into [email or web address] with your username and password that you [...] you will allow to register on the [facility] Patient Portal for access to your information. You can also access the [facility] Patient Portal on the [employer] ana paula. Simply click on Health Records under [employer] and then click on the [employer] logo. HOW TO SAFELY DISPOSE OF PRESCRIPTION [...] Call your local pharmacy or go to http://[email or web address].ESP Systems/4A9Rg7i to find one close to you.3.Make use of household items: Use cat litter or old coffee grounds to dispose medications if other options arenot available. Mix your drugs with these household products, seal them in an airtight container andthrow it into the garbage. Call [facility]: [phone] to be sure your drugs can be [...] been reviewed and explained to me and IKING KILEY understand my current condition and have read and understand these discharge instructions. I have received a written copy of the plan/instructions. If I have questions, I am aware that I should contact my d octor. Patient/Regular Senior Care Provider Signature: Date/Time: Relationship to Patient: Witness Name/Signature: Date/Time: [facility]08-26-2024 NoteHNO ID: [id number] Author: SKINNY MOORE APRN.ELECTRICIAN JOURNEYMAN WIREMAN Service: ? Author Type: Nurse Practitioner Type: [...] treat per c/s, f/u with pcp or rooter operator if negative. - Patient education for prevention given - UA DIP, URINE (POC) - URINE CULTURE Skinny Moore APRN.[facility]08-26-2024 History of Present illness Narrative* Skinny Moore APRN.[facility] - 02/17/2024 7:57 AM EDT Subjective [...] treat per c/s, f/u with pcp or rooter operator if negative. - Patient education for prevention given - UA DIP, URINE (POC) - URINE CULTURE Skinny Moore APRN.NATHAN documented in [facility] encounterGood [facility]03-12-[facility]24 Miscellaneous Notes* Telephone Encounter - Sue Ryder MA - 09/03/2023 7:27 AM EDT Patient given results and verbalized understanding of instructions given. Sue Ryder MA * Telephone Encounter - Skinny Moore APRN.CNP - 09/03/2023 7:17 AM EDT Please notify that covid/flu/rsv testing negative. Continue with plan of care as discussed during visit. documented in this encounterGood [facility]aritan Hospital03-11-2024 Instructions* Patient Instructions* Siva Herndon APRN.NATHAN - 09/02/2023 5:05 PM EDT How to [...] or concerning to you. documented in this encounterGood Samaritan Hospital03-11-2024 History of Present illness Narrative* Siva Herndon APRN.ELECTRICIAN JOURNEYMAN WIREMAN - 09/02/2023 4:55 PM EDT Subjective HPI [...] of care. This note was generated using [employer] software. It may contain errors in wording, punctuation, or spelling. Siva Herndon APRN.ELECTRICIAN JOURNEYMAN WIREMAN documented in this encounterGood Samaritan Hospital03-09-2024 NoteHNO ID: [id number] Author: NOTE, INTERFACE, ? Service: ? Author Type: ? Type: Progress Notes Filed: 08/31/2023 03:42 Note Text: Epic Scheduled Downtime: 08/31/2023 1:00:00 AM to 08/31/2023 3:24:00 [facility]03-04-2024 History of Present illness Narrative* Bhavani Cross [...] room. She understands. She will go to [facility] now. She declines EMS. documented in this encounterGood Samaritan Hospital06-23-2023 History of Present illness Narrative* Tatiana Nieves APRN.ELECTRICIAN JOURNEYMAN WIREMAN - 12/14/2022 1:07 PM EDT Images from the original note were not included. Rheumatology CONSULTATION Referring Provider: Self Date of Service: 12/14/2022 Gender: female Ethnicity: White Age: [age] year old Chief Complaint: Consult [facility] Alina Malik is a 17 year [...] years of pain. 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 Exercise almaguer- not on exercise [...] depth She is working with mental health SENIOR IT SECURITY ANALYST and is on treatment. Will consult to [...] which included preparing to see the patient, ctfw-gr-xelr patient care, completing clinical documentation, obtaining and/or reviewing separately obtained history, performing a medically appropriate examination, and counseling and educating the patient/family/caregiver. Tatiana Nieves APRN.ELECTRICIAN JOURNEYMAN WIREMAN cc: PCP: Nikki Olsen [address] [place] [address] documented in this encounterGood Samaritan Hospital12-22-2022 History of Present illness Narrative* Genevieve [...] MD Department of Orthopaedics Orthopaedics [address] [facility] [address] Dept: [phone] Dept June 14, 2022 CHIEF COMPLAINT: New [...] Patient isright hand dominant. 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 Childcare Teacher: VIOLETTA Transcribe Date/Time: May 14 2022 [...] requesting physician via US mail. Beth Aguirre [address] [facility] [address] [facility] [address] [facility] [address] Juan Gates MD documented in this encounterGood Samaritan Hospital12-01-2022 History of Present illness Narrative* Roberta Spence - 05/24/2022 1:31 PM EST POPULATION HEALTH NAVIGATION OUTREACH Action/FYI Pt scheduled Pt identified by name and : YES, via phone Outreach Outcome/Action Spoke to patient or caregiver: Patient scheduled Did you use a PCP flex slot to schedule this appointment? No Reason for Outreach Care Gap or Scheduling/Wellness visits Payer: Payor: [facility] MEDICAID / Plan: [facility] / Product Type: Medicaid / [...] 24, 2022 1:31 PM documented in this encounterGood Samaritan Hospital11-21-2022 Instructions* Patient Instructions* Beth Aguirre PA-C [...] pillows when lying down. 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 Notes that it's typically 4/10 on the pain scale but becomes ~7/10 on the pain scale. Was seen at [facility] on Saturday, and they said they will [...] plan. Beth Aguirre PA-C documented in this encounterGood Samaritan Hospital + Plan note Future Appointments Appointment Date:07/29/2024 01:00:00 PM Scheduled Provider: Location:[facility] Appointment Type:VL - Venous US/Doppler One Leg (for DVT) [facility] Evaluation noteNo assessment information available [facility] Work Phone: evaluation note* Diagnosis Onset Date Resolution Status Gall stone acute Gastritis acute [facility] Work Phone: evaluation note* Diagnosis Right wrist pain- Primary Pain in joint, forearm documented in this encounter [facility] note* 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 documented in this encounter [facility] note* Diagnosis Fibromyalgia- Primary Mylagia and myositis, unspecified documented in this encounter [facility]* Diagnosis Headache, unspecified headache type- Primary documented in this encounter [facility]* Diagnosis Viral illness- Primary Unspecified viral infection, in conditions classified elsewhere and of unspecified site documented in this encounter [facility] note* Diagnosis Urinary frequency- Primary documented in this encounter [facility] note* Diagnosis Constipation, unspecified constipation type- Primary documented in this encounter [facility] note* Diagnosis Procedure not carried out- Primary Procedure not carried out for other reasons documented in this encounter [facility]* Diagnosis Bilateral leg edema- Primary Edema Tachycardia Tachycardia, unspecified SOB (shortness of breath) Shortness of breath Nausea Nausea alone documented [facility] Narrative No data available for this section [facility] Hospital Discharge instructions Additional Instructions Please follow-up [...] the ER should you have any further concerns.[facility] Work Phone: Hospital [facility]WMer[facility] Work Phone: Hospital Discharge instructionsWMer[facility] Work Phone: Hospital Discharge instructionsWMer[facility] Work Phone: Hospital Discharge instructions Additional Instructions Please follow-up with your family doctor to discuss starting antianxiety medications and return to the ER should you have any further concernsWMercy [facility] Work Phone: Hospital Discharge instructions No data available for this section [facility] Progress note No data available for this section [facility] Reason for visit Narrative* Diagnostic Procedure Only (Urgent) - Closed Specialty Diagnoses / Procedures Referred By Contac t Referred To Contact XR IMAGING Diagnoses Right wrist pain Procedures XR WRIST GENERAL 3V PA/LAT/OBL RIGHT RADEX WRIST COMPLETE MINIMUM 3 VIEWS Beth Aguirre, PA-C [address] [place] [address] [place] [address] Referral ID Status Reason Start Date Expiration Date V isits Requested Visits Authorized [id number] Closed Auto-Generate d Referral 05/14/2022 06/13/2023 1 1 [facility] Summary Purpose Family History No Family History Records Found Relationship Condition Age at Onset Recorded Date/T nel mother Hypertension Unknown Seizure Unknown grandmother Malignant neoplasm of breast Unknown Malignant neoplasm Unknown Advance Directives No Advanced Directives Records Found Advance Directive Response Recorded Date/ Time Living Will No October 01, 2021 1:22am Power of Weighing Station Operator No October 01 1:22am Advance Directive Response Recorded Date/ Time Living Will No December 12, 2021 10:49am Power of Weighing Station Operator No December 12 10:49am Advance Directive Response Recorded Date/ Time Living Will No December 17, 2021 2:52am Power of Weighing Station Operator No December 17 2:52am Advance Directive Response Recorded Date/ Time Living Will No May 07 11:32pm Power of Weighing Station Operator No May 07, 2022 11:32pm Advance Directive Response Recorded Date/ Time Living Will No July 09 12:22am Power of Weighing Station Operator No July 09, 2022 12:22am Chief Complaint [...] wrist pain Procedures CONSULT TO ORTHOPAEDICS OFFICE/OUTPATIENT [facility] 60-74 MINUTES Beth Aguirre PA-C [address] [place] [address] Referral ID Status Reason Start Date Expiration Date Visits Requested Visits Authorized [id number] Authorized PCP Requested Referral 2 05/14/2023 1 1 Specialty Diagnoses / Procedures Referred By Contac t Referred To Contact XR IMAGING Diagnoses Right wrist pain Procedures XR WRIST GENERAL 3V PA/LAT/OBL RIGHT RADEX WRIST COMPLETE MINIMUM 3 VIEWS Beth Aguirre PA-C [address] [place] [address] Xr Imaging Referral ID Status Reason Start Date Expiration Date V isits Requested Visits Authorized [id number] Closed Auto-Generate d Referral 05/14/2022 06/13/2023 1 1 Specialty Diagnoses / Procedures Referred By Contac t Referred To Contact [facility] [place] Diagnoses Fibromyalgia Procedures CONSULT TO [facility] ([facility]) OFFICE/OUTPATIENT [facility] 60-74 MINUTES Tatiana Nieves, INSERTER PROMOTIONAL ITEM.ELECTRICIAN JOURNEYMAN WIREMAN [address] [place] [address] Referral ID Status Reason Start Date Expiration Date Visits Requested Visits Authorized [id number] Pending Review PCP Requested Referral 12/14/2022 12/14/2023 1 1 Health Concerns Infection Onset Date Last Indicated Resolved Time COVID-19 Rule-Out 09/02/2023 09/02/2023 Infection Onset Date Last Indicated Resolved Time COVID-19 Rule-Out 09/02/2023 09/02/2023 09/03/2023 4:17 AM EDT Additional Source Comments INFORMATION SOURCE (unrecogn ized section and content) DATE CREATED AUTHOR 04/16/2018 [facility] DATE CREATED AUTHOR AUTHOR'S ORGANIZ ATION 09/01/2023 [facility] DATE CREATED AUTHOR AUTHOR'S ORGANIZ ATION 02/20/2024 [facility] DATE CREATED AUTHOR AUTHOR'S ORGANIZ ATION 02/22/2024 [facility] ([place] DATE CREATED AUTHOR AUTHOR'S ORGANIZ ATION 05/04/2024 [facility] DATE CREATED AUTHOR AUTHOR'S ORGANIZ ATION 08/11/2024 [facility] DATE CREATED AUTHOR AUTHOR'S ORGANIZ ATION 11/18/2024 [facility] DATE CREATED AUTHOR AUTHOR'S ORGANIZ ATION 12/04/2024 [facility] Goals (unrecognized section and content) Goals may [...] or prosecute any alcohol or drug abuse patient.[facility] HospitalIn the event this information is protected by the Federal Confidentiality of Alcohol and Drug Abuse Patient Records regulations: The Federal rules restrict any use of the information to criminally investigate or prosecute any alcohol or drug abuse patient.[facility] HospitalIn the event this information is protected by the Federal Confidentiality of Alcohol and Drug Abuse Patient Records regulations: The Federal rules restrict any use of the information to criminally investigate or prosecute any alcohol or drug abuse patient.[facility] HospitalIn the event this information is protected by the Federal Confidentiality of Alcohol and Drug Abuse Patient Records regulations: The Federal rules restrict any use of the information to criminally investigate or prosecute any alcohol or drug abuse patient.[facility] HospitalIn the event this information is protected by the Federal Confidentiality of Alcohol and Drug Abuse Patient Records regulations: The Federal rules restrict any use of the information to criminally investigate or prosecute any alcohol or drug abuse patient.[facility] HospitalIn the event this information is protected by the Federal Confidentiality of Alcohol and Drug Abuse Patient Records regulations: The Federal rules restrict any use of the information to criminally investigate or prosecute any alcohol or drug abuse patient.[facility] HospitalIn the event this information is protected by the Federal Confidentiality of Alcohol and Drug Abuse Patient Records regulations: The Federal rules restrict any use of the information to criminally investigate or prosecute any alcohol or drug abuse patient.[facility] HospitalIn the event this information is protected by the Federal Confidentiality of Alcohol and Drug Abuse Patient Records regulations: The Federal rules restrict any use of the information to criminally investigate or prosecute any alcohol or drug abuse patient.[facility] HospitalIn the event this information is protected by the Federal Confidentiality of Alcohol and Drug Abuse Patient Records regulations: The Federal rules restrict any use of the information to criminally investigate or prosecute any alcohol or drug abuse patient.[facility] HospitalIn the event this information is protected by the Federal Confidentiality of Alcohol and Drug Abuse Patient Records regulations: The Federal rules restrict any use of the information to criminally investigate or prosecute any alcohol or drug abuse patient.[facility] HospitalIn the event this information is protected by the Federal Confidentiality of Alcohol and Drug Abuse Patient Records regulations: The Federal rules restrict any use of the information to criminally investigate or prosecute any alcohol or drug abuse patient.[facility] Reason for Visit (unrecogniz ed section and content) Reason Comments Wrist Pain R wrist pain x1 year , worse last few days Reason Comments New Pain Referred by Beth Aguirre Specialty Diagnoses / Procedures Referred By Adeel t Referred To Contact Orthopedics Diagnoses Right wrist pain Procedures CONSULT TO ORTHOPAEDICS OFFICE/OUTPATIENT NEW HIGH MDM 60-74 MINUTES Beth Aguirre PA-C [address] [place] [address] Referral ID Status Reason Start Date Expiration Date V isits Requested Visits Authorized [id number] Closed PCP Requested Referral 05/14/2022 05/14/2023 1 1 Reason Comments Consult Reason Comments Headache SILVER x 1 week Reason Comments Neck Pain Fatigue, weak, chill s, body aches, head in a fog x 1 week Reason Comments Results Reason Comments Urinary Frequency urgency x couple wee ks Reason Comments Abdominal Pain Pt states she was se en yesterday for same at [facility] and was told she had a uti and discharged. Pt states today the pain has worsened in her RLQ around to her back 6/10 & sharp/cramping in nature. Reason Comments Nausea Bilateral leg swelli ng x4 days Care Teams (unrecognized sec tion and content) Communications Specialist Relationship Specialty Start Date End Date Clinic, Rukhsana Luz [address] [facility] [place] [address] PCP - General 02/28/22 Communications Specialist Relationship Specialty Start Date End Date Clinic, Rukhsana Luz [address] [place] [address], [place] [address] PCP - General 02/28/22 Communications Specialist Relationship Specialty Start Date End Date [facility], Rukhsana Luz [address] [place] [address], [place] [address] PCP - General 02/28/22 Communications Specialist Relationship Specialty Start Date End Date Nikki Olsen NP [address] [place] [address] PCP - General Family Medicine 10/10/22 Communications Specialist Relationship Specialty Start Date End Date Nikki Olsen NP [address] [place] [phone] PCP - General Family Medicine 10/10/22 Communications Specialist Relationship Specialty Start Date End Date Nikki Olsen NP [address] [place] [phone] PCP - General Family Medicine 10/10/22 Communications Specialist Relationship Specialty Start Date End Date Nikki Olsen NP [address] [place] [phone] PCP - General Family Medicine 10/10/22 Communications Specialist Relationship Specialty Start Date End Date Nikki Olsen NP [address] [place] [phone] PCP - General Family Medicine 10/10/22 Communications Specialist Relationship Specialty Start Date End Date Rukhsana Samaniego PCP - General 02/28/22 10/09/22 Communications Specialist Relationship Specialty Start Date End Date Nikki Olsen NP [address] [place] [phone] PCP - General Family Medicine 10/10/22 Nikki Olsen NP [address] [place], [place] [address] Referring Family Medicine 03/27/24 Communications Specialist Relationship Specialty Start Date End Date Nikki Olsen NP [address] [place] [address] PCP - General Family Medicine 10/10/22 Nikki Olsen NP [address] [place], [place] [address] Referring Family Medicine 03/27/24 Scheduled Active and [...] Sat02/18/24 at 2115, For 1 dose 2120 (Given - Provid er: Candelaria Gerard RN) sodium chloride 0.9 % bolus 1,000 mL (COMPLETED) 1,000 mL, IntraVENous, at 1,000 mL/hr, Administer over 1 Hours, Once, On Sat02/18/24 at 2115, For 1 dose 2120 (New Bag - Prov ider: Candelaria Gerard RN)2221 (Stopped - Provider: Candelaria Gerard RN) FOR [...] BE BASED ON THE PRIMARY CLINICAL RECORDS. [employer] [facility]. provides no warranty or guarantee of the accuracy or completeness of information in this document.
== END | disposition home or self-care (01) ==
LOC: LAB 16:11
PROVIDERS: PCP Nurse Practitioner Family; Referring Provider Nurse Practitioner Family; Visit Provider Nurse Practitioner Family
DX: M79.7 Fibromyalgia (principal)
CPT/HCPCS: 36415; 81374; 86140

== ENCOUNTER → 2025-01-13 | Outpatient (CLI) | payer MEDICAID, SELFPAY ==
[2025-01-13 12:47] LABS: CRP 25.60 mg/L (0.0-3.0)
== END | disposition home or self-care (01) ==
LOC: VSLAB 10:32
PROVIDERS: PCP Nurse Practitioner Family
DX: M79.7 Fibromyalgia (principal)
CPT/HCPCS: 36415; 86140